=== PATIENT | female | born 1945 | race Caucasian/White ===

== ENCOUNTER → 2016-08-06 | Outpatient (CLI) | payer MEDICARE ==
--- NOTE | 2016-08-07 07:48 | MM ---
Reason for exam: screening (asymptomatic). Last mammogram was performed 1 year and 1 month ago. History: Patient is postmenopausal. Physical Findings: A clinical breast exam by your physician is recommended on an annual basis and results should be correlated with mammographic findings. MG Screening Mammo w CAD Bilateral CC and MLO view(s) were taken. Prior study comparison: July 10, 2015, bilateral MG screening mammo w CAD. May 03, 2012, bilateral digital screening mammo w/CAD. The breast tissue is almost entirely fat. There is chronic nodularity in the right breast. No significant changes when compared with prior studies. ASSESSMENT: Benign, BI-RAD 2 RECOMMENDATION: Routine screening mammogram of both breasts in 1 year.
== END | disposition home or self-care (01) ==
LOC: RADMAMWWP 08:42
PROVIDERS: ATTEND Internal Medicine
DX: Z12.31 Encounter for screening mammogram for malignant neoplasm of breast (principal)

== ENCOUNTER → 2017-12-09 | Outpatient (CLI) | payer MEDICARE ==
--- NOTE | 2017-12-09 13:55 | XR ---
EXAMINATION TYPE: XR chest 2V DATE OF EXAM: 12/09/2017 COMPARISON: 04/17/2015 HISTORY: Fatigue and congestive heart failure. Shortness of breath and 40 pound weight loss. TECHNIQUE: Frontal and lateral views of the chest are obtained. FINDINGS: There is stable blunting of the left costophrenic angle that may relate to a trace left pl eural effusion or chronic pleural parenchymal changes as is seen on the prior 2014. There is also sta ble left hemidiaphragm elevation on the lateral image. Surgical clips are noted within the upper abdo men. Right-sided cardiac device is seen with post CABG changes of the chest. Healed fracture deformit y of the left proximal humerus is present in combination with osseous demineralization. No focal consolidation, pleural effusion or pneumothorax is seen. No pulmonary vascular congestion or pulmonary mass is identified. IMPRESSION: Chronic changes with no acute cardiopulmonary process.
== END | disposition home or self-care (01) ==
LOC: RADXRMAIN 13:10
PROVIDERS: ATTEND Internal Medicine
DX: R06.02 Shortness of breath (principal)
CPT/HCPCS: 71046

== ENCOUNTER → 2018-03-10 | Outpatient (CLI) | payer MEDICARE ==
--- NOTE | 2018-03-10 14:52 | MM ---
Reason for exam: screening (asymptomatic). Last mammogram was performed 1 year and 7 months ago. History: Patient is postmenopausal. Physical Findings: A clinical breast exam by your physician is recommended on an annual basis and results should be correlated with mammographic findings. MG Screening Mammo w CAD Bilateral CC and MLO view(s) were taken. Prior study comparison: August 06, 2016, bilateral MG screening mammo w CAD. July 10, 2015, bilateral MG screening mammo w CAD. There are scattered fibroglandular densities. There is no discrete abnormality. ASSESSMENT: Negative, BI-RAD 1 RECOMMENDATION: Routine screening mammogram of both breasts in 1 year.
== END ==
LOC: RADMAMWWP 10:46
PROVIDERS: ATTEND Internal Medicine
DX: Z12.31 Encounter for screening mammogram for malignant neoplasm of breast (principal)
CPT/HCPCS: 77067

== ENCOUNTER 2018-07-25 19:17 | Inpatient (IN) | payer MEDICARE ==
[2018-07-25] MEDS ORDERED: SODIUM CHLORIDE 0.9% 500 ML 500 ML IV STA (20:01)
[2018-07-25] MEDS ORDERED: ONDANSETRON ODT 8 MG TAB.RAPDIS PO STA (20:01)
[2018-07-25] MEDS ORDERED: MORPHINE SULFATE 4 MG/ML SYRINGE IV STA (20:01)
[2018-07-25] MEDS ORDERED: ONDANSETRON 4 MG/2 ML VIAL IVP STA (20:11)
[2018-07-25 20:28] LABS: Basophils % (A) 0 %; Eosinophils # (A) 0.1 k/uL (0-0.7); Eosinophils % (A) 1 %; HCT 41.7 % (34.0-46.0); Lymphocytes # (A) 0.7 k/uL (1.0-4.8); Lymphocytes % (A) 5 %; MCH 29.9 pg (25.0-35.0); MCHC 33.7 g/dL (31.0-37.0); MCV 88.9 fL (80.0-100.0); Mean Platelet Volume 7.8; Monocytes # (A) 0.4 k/uL (0-1.0); Monocytes % (A) 3 %; Neutrophils # (A) 14.7 k/uL (1.3-7.7); Neutrophils % (A) 91 %; Platelet Count 248 k/uL (150-450); RBC 4.69 m/uL (3.80-5.40); RDW 14.1 % (11.5-15.5); WBC 16.1 k/uL (3.8-10.6)
[2018-07-25 20:34] LABS: Calcium 11.8 mg/dL (8.4-10.2); Potassium 3.5 mmol/L (3.5-5.1); Total Bilirubin 0.8 mg/dL (0.2-1.3); Total Protein 7.5 g/dL (6.3-8.2)
--- NOTE | 2018-07-25 20:42 | ED ---
Abdominal Pain HPI - General Source: patient Mode of arrival: ambulatory Limitations: no limitations <Noris Suarez - Last Filed: 07/25/18 21:54> <Tameka Renteria - Last Filed: 07/26/18 03:20> - General Chief Complaint: Abdominal Pain Stated Complaint: ABD PAIN Time Seen by Provider: 07/25/18 19:26 - History of Present Illness Initial Comments: 73-year-old female patient presents to the emergency department today for evaluation of right lower quadrant abdominal pain. Patient states that she developed this pain around 0900 this morning. Patient states it has been persistent but worsening throughout the day. States that she has also been nauseated and has had dry heaves. States that she has not had a bowel movement in the last 3 days. She denies any fevers or chills with this. Denies any hematuria, dysuria, urinary frequency, urinary urgency. Patient states that she has had repair of aortic dissection and multiple aneurysms on her ascending and descending aorta other abdominal surgeries. Patient denies any recent rash, shortness breath, chest pain, back pain, numbness, tingling, dizziness, weakness, headache, visual changes, or any other complaints. (Noris Suarez ) - Related Data Home Medications Medication Instructions Recorded Confirmed HYDROcodone/APAP 7.5-325MG [[place] 1 tab PO Q8H PRN 10/12/14 07/25/18 7.5-325] Pravastatin Sodium [Pravachol] 20 mg PO HS 04/17/15 07/25/18 Amiodarone [Cordarone] 100 mg PO DAILY 07/25/18 07/25/18 Aspirin EC [Ecotrin Low Dose] 81 mg PO DAILY 07/25/18 07/25/18 Carvedilol [Coreg] 25 mg PO BID 07/25/18 07/25/18 Furosemide [Lasix] 40 mg PO DAILY@1400 07/25/18 07/25/18 Furosemide [Lasix] 80 mg PO QAM 07/25/18 07/25/18 Warfarin Sodium [Coumadin] 2 mg PO MOTUWETHFRSA 07/25/18 07/25/18 Warfarin Sodium [Coumadin] 4 mg PO MASTERS 07/25/18 07/25/18 amLODIPine [Norvasc] 5 mg PO DAILY 07/25/18 07/25/18 Allergies Allergy/AdvReac Type Severity Reaction Status Date / Time amoxicillin AdvReac Nausea & Verified 07/25/18 19:44 Vomiting & Diarrhea Penicillins AdvReac Nausea & Verified 07/25/18 19:44 Vomiting & Diarrhea VITAMIN K Allergy Anaphylaxis Uncoded 04/17/15 16:19 Review of Systems ROS Other: All systems not noted in ROS Statement are negative. <Noris Suarez M - Last Filed: 07/25/18 21:54> ROS Other: All systems not noted in ROS Statement are negative. <Tameka Renteria P - Last Filed: 07/26/18 03:20> ROS Statement: Those systems with pertinent positive or pertinent negative responses have been documented in the HPI. Past Medical History Past Medical History: Heart Failure, CVA/TIA, Hyperlipidemia, Hypertension, Memory Impairment Additional Past Medical History / Comment(s): essential tremor, PAST HX AFIB BUT WAS CARDIOVERTED, KIDNEY STONE,ARTHRITIS,abdominal aortic dissection and repair WITH CVA POST OP WHICH HAS AFFECTED MEMORY SLIGHTLY and left patient with residual slight left sided weakness, chronic anemia, thoracic and abdominal aortic aneurysm, hypercalcemia and hyperparathyroidism WHICH SHE CURRENTLY TEST NORMAL FOR. History of Any Multi-Drug Resistant Organisms: None Reported Past Surgical History: Back Surgery, Heart Catheterization, Pacemaker Additional Past Surgical History / Comment(s): 1998 aortic disection repair, three aneurysm ascending and descending aorta, aortic valve replacement( MECHANICAL VALVE), CYST AT END OF SPINE REMOVED. CARDIAC CATHETERIZATION WHICH WAS NORMAL. biventricular pacer placed in 08/2014 - pacer is on right side of chest - physician unable to get into left Past Anesthesia/Blood Transfusion Reactions: No Reported Reaction Type of Cardiac Device: Biventricular Pacemaker Device Placement Date:: 08/2014 Past Psychological History: No Psychological Hx Reported Smoking Status: Never smoker Past Alcohol Use History: None Reported Past Drug Use History: None Reported - Past Family History Father History Unknown: Yes Family Medical History: AFIB, Congestive Heart Failure (CHF) Additional Family Medical History / Comment(s): FATHER AT AGE 73 OF CHF. Mother History Unknown: Yes Additional Family Medical History / Comment(s): MOTHER AT AGE 78 OF SEPTIC SHOCK UNKNOWN SOURCE. <Noris Suarez - Last Filed: 07/25/18 21:54> General Exam Limitations: no limitations General appearance: alert, in no apparent distress, other (Physical well- developed, well-nourished elderly female patient in no acute distress. Vital signs upon presentation are temperature 98.0F, pulse 68, respirations 16, blood pressure 101/54, pulse ox 98% on room air.) Eye exam: Present: normal appearance, PERRL, EOMI. Absent: scleral icterus, conjunctival injection, periorbital swelling ENT exam: Present: normal exam, normal oropharynx, mucous membranes moist Respiratory exam: Present: normal lung sounds bilaterally. Absent: respiratory distress, wheezes, rales, rhonchi, stridor Cardiovascular Exam: Present: regular rate, normal rhythm, normal heart sounds. Absent: systolic murmur, diastolic murmur, rubs, gallop, clicks GI/Abdominal exam: Present: soft, tenderness (Right lower quadrant tenderness), normal bowel sounds. Absent: distended, guarding, rebound, rigid Neurological exam: Present: alert, oriented X3, CN II-XII intact Psychiatric exam: Present: normal affect, normal mood Skin exam: Present: warm, dry, intact, normal color. Absent: rash <Noris Suarez - Last Filed: 07/25/18 21:54> Vital Signs 07/25/18 07/25/18 07/25/18 19:23 20:30 21:00 Temperature 98 F Pulse Rate 68 Respiratory 16 Rate Blood Pressure 101/54 133/63 118/62 O2 Sat by Pulse 98 Oximetry 07/25/18 07/25/18 21:10 22:48 Temperature Pulse Rate 67 Respiratory 16 Rate Blood Pressure 132/60 101/57 O2 Sat by Pulse 99 Oximetry Medical Decision Making - Lab Data Result diagrams: 07/25/18 20:09 07/25/18 20:09 - Radiology Data Radiology results: report reviewed, image reviewed <Noris Suarez - Last Filed: 07/25/18 21:54> - Lab Data Result diagrams: 07/25/18 20:09 07/25/18 20:09 <Tameka Renteria - Last Filed: 07/26/18 03:20> - Medical Decision Making 73-year-old female patient presents to the emergency department today for evaluation of right lower quadrant abdominal pain. Patient has been nauseated and has been dry heaving throughout the day. She is afebrile. Labs reviewed and did reveal elevated white blood cell count at 16. CT abdomen and pelvis was obtained and did show evidence of diverticulitis the sigmoid colon. Patient be started on antibiotics and admitted to the hospital for further evaluation. She was informed of and agrees this plan (Noris Suarez) I personally saw and examined the patient. I reviewed and agree with the mid- level provider findings including all diagnostic interpretations and treatment plans Patient has a reported history to penicillin, when I discussed this with the patient she reports that penicillin causes nausea and vomiting and amoxicillin causes nausea vomiting and diarrhea. At this time I feel patient is safe to be treated with Rocephin and Flagyl for inflammatory colitis or diverticulitis as determined on the computed tomography scan. Patient agreeable to plan for admission reports she's having worsening abdominal cramping. (Tameka Renteria) - Lab Data Lab Results 07/25/18 07/25/18 07/25/18 Range/Units 20:09 20:09 20:09 WBC 16.1 H (3.8-10.6) k/uL RBC 4.69 (3.80-5.40) m/uL Hgb 14.0 (11.4-16.0) gm/dL Hct 41.7 (34.0-46.0) % MCV 88.9 (80.0-100.0) fL MCH 29.9 (25.0-35.0) pg MCHC 33.7 (31.0-37.0) g/dL RDW 14.1 (11.5-15.5) % Plt Count 248 (150-450) k/uL Neutrophils % 91 % Lymphocytes % 5 % Monocytes % 3 % Eosinophils % 1 % Basophils % 0 % Neutrophils # 14.7 H (1.3-7.7) k/uL Lymphocytes # 0.7 L (1.0-4.8) k/uL Monocytes # 0.4 (0-1.0) k/uL Eosinophils # 0.1 (0-0.7) k/uL Basophils # 0.0 (0-0.2) k/uL PT (9.0-12.0) sec INR (<1.2) APTT (22.0-30.0) sec Sodium 141 (137-145) mmol/L Potassium 3.5 (3.5-5.1) mmol/L Chloride 104 (98-107) mmol/L Carbon Dioxide 29 (22-30) mmol/L Anion Gap 8 mmol/L BUN 27 H (7-17) mg/dL Creatinine 1.07 H (0.52-1.04) mg/dL Est GFR (CKD-EPI)AfAm 60 (>60 ml/min/1.73 sqM) Est GFR (CKD-EPI)NonAf 52 (>60 ml/min/1.73 sqM) Glucose 129 H (74-99) mg/dL Plasma Lactic Acid Jimy 1.9 (0.7-2.0) mmol/L Calcium 11.8 H (8.4-10.2) mg/dL Total Bilirubin 0.8 (0.2-1.3) mg/dL AST 20 (14-36) U/L ALT 26 (9-52) U/L Alkaline Phosphatase 98 (38-126) U/L Total Protein 7.5 (6.3-8.2) g/dL Albumin 4.0 (3.5-5.0) g/dL Amylase 56 (30-110) U/L Lipase 165 (23-300) U/L Urine Color Urine Appearance (Clear) Urine pH (5.0-8.0) Ur Specific [place] (1.001-1.035) Urine Protein (Negative) Urine Glucose (UA) (Negative) Urine Ketones (Negative) Urine Blood (Negative) Urine Nitrite (Negative) Urine Bilirubin (Negative) Urine Urobilinogen (<2.0) mg/dL Ur Leukocyte Esterase (Negative) Urine RBC (0-5) /hpf Urine WBC (0-5) /hpf Ur Squamous Epith Cells (0-4) /hpf Hyaline Casts (0-2) /lpf 07/25/18 07/25/18 Range/Units 20:09 21:10 WBC (3.8-10.6) k/uL RBC (3.80-5.40) m/uL Hgb (11.4-16.0) gm/dL Hct (34.0-46.0) % MCV (80.0-100.0) fL MCH (25.0-35.0) pg MCHC (31.0-37.0) g/dL RDW (11.5-15.5) % Plt Count (150-450) k/uL Neutrophils % % Lymphocytes % % Monocytes % % Eosinophils % % Basophils % % Neutrophils # (1.3-7.7) k/uL Lymphocytes # (1.0-4.8) k/uL Monocytes # (0-1.0) k/uL Eosinophils # (0-0.7) k/uL Basophils # (0-0.2) k/uL PT 13.8 H (9.0-12.0) sec INR 1.4 H (<1.2) APTT 27.6 (22.0-30.0) sec Sodium (137-145) mmol/L Potassium (3.5-5.1) mmol/L Chloride (98-107) mmol/L Carbon Dioxide (22-30) mmol/L Anion Gap mmol/L BUN (7-17) mg/dL Creatinine (0.52-1.04) mg/dL Est GFR (CKD-EPI)AfAm (>60 ml/min/1.73 sqM) Est GFR (CKD-EPI)NonAf (>60 ml/min/1.73 sqM) Glucose (74-99) mg/dL Plasma Lactic Acid Jimy (0.7-2.0) mmol/L Calcium (8.4-10.2) mg/dL Total Bilirubin (0.2-1.3) mg/dL AST (14-36) U/L ALT (9-52) U/L Alkaline Phosphatase (38-126) U/L Total Protein (6.3-8.2) g/dL Albumin (3.5-5.0) g/dL Amylase (30-110) U/L Lipase (23-300) U/L Urine Color Yellow Urine Appearance Clear (Clear) Urine pH 5.5 (5.0-8.0) Ur Specific [place] 1.020 (1.001-1.035) Urine Protein Trace H (Negative) Urine Glucose (UA) Negative (Negative) Urine Ketones Negative (Negative) Urine Blood Negative (Negative) Urine Nitrite Negative (Negative) Urine Bilirubin Negative (Negative) Urine Urobilinogen <2.0 (<2.0) mg/dL Ur Leukocyte Esterase Moderate H (Negative) Urine RBC 1 (0-5) /hpf Urine WBC 6 H (0-5) /hpf Ur Squamous Epith Cells <1 (0-4) /hpf Hyaline Casts 1 (0-2) /lpf - Radiology Data CT abdomen and pelvis is obtained. Report was reviewed in its entirety. Impression by Dr. Meza shows inflammatory changes in the sigmoid colon with wall thickening and numerous diverticula. This could be colitis or diverticulitis. There is no free fluid in the pelvis. There is a chronic low abdominal aortic dissection extending into the right iliac artery that appears diminished compared to last exam. There is clearing of left pleural effusion compared to old exam. (Noris Suarez) Disposition Decision to Admit Reason: Admit from EC Decision Date: 07/25/18 Decision Time: 21:55 <Noris Suarez - Last Filed: 07/25/18 21:54> <Tameka Renteria - Last Filed: 07/26/18 03:20> Clinical Impression: Diverticulitis Disposition: ADMITTED IP TO THIS [facility] Condition: Serious
[2018-07-25 21:23] LABS: Appearance,Urine Clear (Clear); Bilirubin,Urine Negative (Negative); Blood,Urine Negative (Negative); Color,Urine Yellow; Glucose,Urine (UA) Negative (Negative); Hyaline Casts,Urine 1 /lpf (0-2); Ketones,Urine Negative (Negative); Leukocyte Esterase,Urine Moderate (Negative); Nitrite,Urine Negative (Negative); PH, Urine 5.5 (5.0-8.0); Protein,Urine Trace (Negative); RBC,Urine 1 /hpf (0-5); Squamous Epithelial Cell,Urine <1 /hpf (0-4); Urobilinogen,Urine <2.0 mg/dL (<2.0); WBC,Urine 6 /hpf (0-5)
--- NOTE | 2018-07-25 21:30 | CT ---
EXAMINATION TYPE: CT abdomen pelvis w con DATE OF EXAM: 07/25/2018 COMPARISON: 08/26/2012 HISTORY: Right lower quadrant pain today. CT DLP: 982.9 mGycm Automated exposure control for dose reduction was used. TECHNIQUE: Helical acquisition of images was performed from the lung bases through the pelvis. CONTRAST: Performed without Oral Contrast and with IV Contrast, patient injected with 80 mL of Isovue 300. FINDINGS: Heart is enlarged. There is no pleural effusion. Spleen appears normal. Liver shows no focal defect. Bile ducts are not dilated. Gallbladder appears normal. There is no pancreatic mass. There is no adrenal mass. There is limited dissection of the lower abdominal aorta that extends into the right iliac artery. There is aneurysm of the liver abdominal aorta that measures up to 3.7 cm in diameter. There is no retroperitoneal adenopathy. The kidneys show satisfactory contrast opacificatio n. There is no hydronephrosis. There are multiple bilateral renal cortical cysts that measure up to 2 cm. There are multiple calculi in the lower pole left kidney measure up to 6 mm. There is some free fluid in the pelvis. Bladder distends smoothly. There is no inguinal hernia. Uteru s is anteverted. There is no mesenteric edema. There is no sign of appendicitis. There are multiple s igmoid diverticula. There is some wall thickening of the mid sigmoid colon. There is no sign of free air. There are spondylotic changes in the lumbar spine. IMPRESSION: THERE ARE INFLAMMATORY CHANGES OF THE SIGMOID COLON WITH WALL THICKENING AND NUMEROUS DIVERTICULA. TH IS COULD BE COLITIS OR DIVERTICULITIS. THERE IS NEW FREE FLUID IN THE PELVIS. THERE IS A CHRONIC LOW ABDOMINAL AORTIC DISSECTION EXTENDING INTO THE RIGHT ILIAC ARTERY THAT APPEARS DIMINISHED COMPARED TO LAST EXAM. THERE IS CLEARING OF LEFT PLEURAL EFFUSION COMPARED TO OLD EXAM.
[2018-07-25] MEDS ORDERED: NALOXONE 0.4 MG/ML 1 ML VIAL IV PRN (21:50)
[2018-07-25] MEDS ORDERED: HYDROcodone/APAP 7.5-325MG 1 EACH TAB PO PRN (21:52)
[2018-07-25] MEDS ORDERED: metroNIDAZOLE-NS PMX 500 MG in SALINE 1 100ML.BAG IVPB STA (22:48)
[2018-07-25] MEDS: SODIUM CHLORIDE 0.9% 1,000 ML IV SCH (23:27)
[2018-07-25 23:57] LABS: INR 1.4 (<1.2); Partial Thromboplastin Time 27.6 sec (22.0-30.0); Prothrombin Time 13.8 sec (9.0-12.0)
[2018-07-26] MEDS: MORPHINE SULFATE 4 MG/ML SYRINGE IV PRN ×6 (00:35→22:02)
[2018-07-26] MEDS: metroNIDAZOLE-NS PMX 500 MG in SALINE 1 100ML.BAG IVPB SCH ×3 (05:38→17:20)
[2018-07-26] MEDS: FUROSEMIDE 80 MG TAB PO SCH (08:20)
[2018-07-26] MEDS: amLODIPine 5 MG TAB PO SCH (08:20)
[2018-07-26] MEDS: AMIODARONE 200 MG TAB PO SCH (08:20)
[2018-07-26] MEDS: CARVEDILOL 12.5 MG TAB PO SCH ×2 (08:20→21:59)
[2018-07-26] MEDS: ASPIRIN 81 MG PO SCH (08:20)
[2018-07-26 09:17] LABS: Basophils # (A) 0.1 k/uL (0-0.2); Basophils % (A) 0 %; Eosinophils # (A) 0.1 k/uL (0-0.7); Eosinophils % (A) 0 %; HCT 39.7 % (34.0-46.0); HGB 12.9 gm/dL (11.4-16.0); Lymphocytes # (A) 0.9 k/uL (1.0-4.8); Lymphocytes % (A) 6 %; MCH 29.5 pg (25.0-35.0); MCHC 32.4 g/dL (31.0-37.0); Mean Platelet Volume 7.3; Monocytes # (A) 0.7 k/uL (0-1.0); Monocytes % (A) 5 %; Neutrophils % (A) 88 %; Platelet Count 270 k/uL (150-450); RBC 4.36 m/uL (3.80-5.40); RDW 14.2 % (11.5-15.5); WBC 15.8 k/uL (3.8-10.6)
[2018-07-26 09:39] LABS: Albumin 3.6 g/dL (3.5-5.0); Potassium 3.8 mmol/L (3.5-5.1); Total Protein 6.7 g/dL (6.3-8.2)
[2018-07-26 09:40] LABS: Calcium 11.4 mg/dL (8.4-10.2); Total Bilirubin 0.8 mg/dL (0.2-1.3)
[2018-07-26 09:58] LABS: INR 1.4 (<1.2); Prothrombin Time 14.5 sec (9.0-12.0)
--- NOTE | 2018-07-26 10:59 | P.HPIM ---
History of Present Illness H&P Date: 07/26/18 This is a 73-year-old female patient who presented to the emergency room with complaints of abdominal pain. Patient states pain started around 9 AM yesterday morning due to her right lower quadrant. Patient reports that it increased throughout the day and patient started to experience nausea and dry heaves. Patient reports last bowel movement was 3 days prior. Patient has past medical history of heart failure, CVA, hyperlipidemia, hypertension, memory impairment, essential tremor, atrial fibrillation with cardioversion, abdominal aortic dissection and repair with CVA postop, cardiac cath, aortic valve replacement with mechanical valve , patient maintained on Coumadin and biventricular pacer placed in August 2014. CT of abdomen and pelvis completed showing inflammatory changes in the sigmoid colon with wall thickening and numerous diverticula. This could be colitis or diverticulitis. There is new free fluid in the pelvis. There is chronic low abdominal aortic dissection extending into the right iliac artery that appears diminished compared to last exam. There is clearing of left pleural effusion compared to old exam. Patient started on Rocephin and Flagyl. Dr. Soto has been consulted for surgical services. This time patient is complaining of some lower abdominal discomfort. Patient denies vomiting at this time. Patient denies any bowel movement or diarrhea. Patient denies chest pain or shortness breath. Patient denies any urinary burning or frequency. Urinary analysis showing positive for leukocyte esterase. Urine culture has been ordered. Review of Systems Please refert to HPI otherwise unremarkable Past Medical History Past Medical History: Heart Failure, CVA/TIA, Hyperlipidemia, Hypertension, Memory Impairment Additional Past Medical History / Comment(s): essential tremor, PAST HX AFIB BUT WAS CARDIOVERTED, KIDNEY STONE,ARTHRITIS,abdominal aortic dissection and repair WITH CVA POST OP WHICH HAS AFFECTED MEMORY SLIGHTLY and left patient with residual slight left sided weakness, chronic anemia, thoracic and abdominal aortic aneurysm, hypercalcemia and hyperparathyroidism WHICH SHE CURRENTLY TEST NORMAL FOR. History of Any Multi-Drug Resistant Organisms: None Reported Past Surgical History: Back Surgery, Heart Catheterization, Pacemaker Additional Past Surgical History / Comment(s): 1998 aortic disection repair, three aneurysm ascending and descending aorta, aortic valve replacement( MECHANICAL VALVE), CYST AT END OF SPINE REMOVED. CARDIAC CATHETERIZATION WHICH WAS NORMAL. biventricular pacer placed in 08/2014 - pacer is on right side of chest - physician unable to get into left Past Anesthesia/Blood Transfusion Reactions: No Reported Reaction Type of Cardiac Device: Biventricular Pacemaker Device Placement Date:: 08/2014 Past Psychological History: No Psychological Hx Reported Additional Psychological History / Comment(s): PT LIVES ALONE AT [facility]). SHE DOES NOT HAVE A CAR BUT DOES HAVE A VALID LICENSE. SHE GETS TO [facility] BY PUBLIC TRANSPORTATION OR AN UNCLE SOMETIMES HELS OUT. PT IS SELF SUFFICIENT AT HOME. Smoking Status: Never smoker Past Alcohol Use History: None Reported Past Drug Use History: None Reported - Past Family History Father History Unknown: Yes Family Medical History: AFIB, Congestive Heart Failure (CHF) Additional Family Medical History / Comment(s): FATHER AT AGE 73 OF CHF. Mother History Unknown: Yes Additional Family Medical History / Comment(s): MOTHER AT AGE 78 OF SEPTIC SHOCK UNKNOWN SOURCE. Medications and Allergies Home Medications Medication Instructions Recorded Confirmed Type HYDROcodone/APAP 7.5-325MG [[place] 1 tab PO Q8H PRN 10/12/14 07/25/18 History 7.5-325] Pravastatin Sodium [Pravachol] 20 mg PO HS 04/17/15 07/25/18 History Amiodarone [Cordarone] 100 mg PO DAILY 07/25/18 07/25/18 History Aspirin EC [Ecotrin Low Dose] 81 mg PO DAILY 07/25/18 07/25/18 History Carvedilol [Coreg] 25 mg PO BID 07/25/18 07/25/18 History Furosemide [Lasix] 40 mg PO DAILY@1400 07/25/18 07/25/18 History Furosemide [Lasix] 80 mg PO QAM 07/25/18 07/25/18 History Warfarin Sodium [Coumadin] 2 mg PO MOTUWETHFRSA 07/25/18 07/25/18 History Warfarin Sodium [Coumadin] 4 mg PO MASTERS 07/25/18 07/25/18 History amLODIPine [Norvasc] 5 mg PO DAILY 07/25/18 07/25/18 History Allergies Allergy/AdvReac Type Severity Reaction Status Date / Time amoxicillin AdvReac Nausea & Verified 07/25/18 19:44 Vomiting & Diarrhea Penicillins AdvReac Nausea & Verified 07/25/18 19:44 Vomiting & Diarrhea VITAMIN K Allergy Anaphylaxis Uncoded 04/17/15 16:19 Physical Exam Vitals: Vital Signs Temp Pulse Pulse Resp BP BP Pulse Ox 07/26/18 07:00 99.1 F 76 18 115/53 91 L 07/25/18 22:48 67 16 101/57 99 07/25/18 21:10 132/60 07/25/18 21:00 118/62 07/25/18 20:30 133/63 07/25/18 19:23 98 F 68 16 101/54 98 Intake and Output 07/25/18 07/26/18 07/26/18 22:59 06:59 14:59 Other: Voiding Method Bedside Commode # Bowel Movements 0 Weight 99.79 kg Head normocephalic Neck supple Lungs clear to auscultation bilaterally no wheezing or crackles Heart regular rate and rhythm S1-S2, no rub or gallop Abdomen is soft nontender nondistended positive bowel sounds no hepatosplenomegaly Extremities +2 lower extremity edema Neuro alert and orientated to 3. Essential tremor noted Results CBC & Chem 7: 07/26/18 08:48 07/26/18 08:48 Labs: Abnormal Lab Results - Last 24 Hours (Table) 07/25/18 07/25/18 07/25/18 Range/Units 20:09 20:09 20:09 WBC 16.1 H (3.8-10.6) k/uL Neutrophils # 14.7 H (1.3-7.7) k/uL Lymphocytes # 0.7 L (1.0-4.8) k/uL PT 13.8 H (9.0-12.0) sec INR 1.4 H (<1.2) BUN 27 H (7-17) mg/dL Creatinine 1.07 H (0.52-1.04) mg/dL Glucose 129 H (74-99) mg/dL Calcium 11.8 H (8.4-10.2) mg/dL Urine Protein (Negative) Ur Leukocyte Esterase (Negative) Urine WBC (0-5) /hpf 07/25/18 07/26/18 07/26/18 Range/Units 21:10 08:48 08:48 WBC 15.8 H (3.8-10.6) k/uL Neutrophils # 14.0 H (1.3-7.7) k/uL Lymphocytes # 0.9 L (1.0-4.8) k/uL PT (9.0-12.0) sec INR (<1.2) BUN 23 H (7-17) mg/dL Creatinine 1.13 H (0.52-1.04) mg/dL Glucose 142 H (74-99) mg/dL Calcium 11.4 H (8.4-10.2) mg/dL Urine Protein Trace H (Negative) Ur Leukocyte Esterase Moderate H (Negative) Urine WBC 6 H (0-5) /hpf 07/26/18 Range/Units 09:44 WBC (3.8-10.6) k/uL Neutrophils # (1.3-7.7) k/uL Lymphocytes # (1.0-4.8) k/uL PT 14.5 H (9.0-12.0) sec INR 1.4 H (<1.2) BUN (7-17) mg/dL Creatinine (0.52-1.04) mg/dL Glucose (74-99) mg/dL Calcium (8.4-10.2) mg/dL Urine Protein (Negative) Ur Leukocyte Esterase (Negative) Urine WBC (0-5) /hpf Thrombosis Risk Factor Assmnt - Choose All That Apply Each Factor Represents 1 point: Obesity (BMI >25), Swollen legs (current) Other Risk Factors: Yes Each Risk Factor Represents 2 Points: Age 61-74 years Other congenital or acquired thrombophilia - If yes, enter type in comment: No Thrombosis Risk Factor Assessment Total Risk Factor Score: 4 Thrombosis Risk Factor Assessment Level: Moderate Risk Assessment and Plan Assessment: 1. Diverticulitis with leukocytosis. WBC 15.8. Lactic acid 1.9. CT of abdomen and pelvis completed showing inflammatory changes in the sigmoid colon with wall thickening and numerous diverticula. This could be colitis or diverticulitis. There is new free fluid in the pelvis. This chronic low abdominal aortic dissection extending into the right iliac artery appears diminished compared to last exam. There is clearing of the left pleural effusion compared to old exam. Dr. thrasher has been consulted for surgical services. Patient started on Rocephin and Flagyl for IV antibiotics. Cultures have been ordered 2. Urinary tract infection. Urine culture ordered. Patient currently on Flagyl and Rocephin for IV antibiotics 3. History of aortic can mechanical valve replacement. Patient is maintained on Coumadin. INR 1.4. 4. History of essential tremor 5. Acute kidney injury. Creatinine 1.13. This does appear slightly higher than baseline for patient. We'll continue to monitor closely 6. History of cardiomyopathy status post biventricular pacemaker placement 7. History of aortic dissection repair in 1998 8. History of CVA and TIA 9. History of atrial fibrillation with cardioversion 10. Heart failure. Maintain on Lasix Time with Patient: Greater than 30 (Greater than 60% of the total time spent in counseling and coordination of care. I performed an examination of the patient and discussed their management with the Nurse Practitioner. I have reviewed the Nurse Practitioner's notes and agree with the documented findings and plan of care)
[2018-07-26] MEDS: FUROSEMIDE 40 MG TAB PO SCH (14:08)
--- NOTE | 2018-07-26 15:27 | P.GSCN ---
History of Present Illness Consult date: 07/26/18 Reason for Consult: Abdominal pain History of present illness: Patient presents to the hospital complaining of abdominal pain. Pain started yesterday around 9:00 in the morning. Last bowel movement 3 days ago. Last colonoscopy she states 2-3 days ago. The patient describes increased abdominal bloating. Mild nausea but no vomiting. Tolerating liquids. CAT scan was performed and showed some constipation with mild colonic wall thickening involving the sigmoid colon. Multiple diverticulum seen. Possible diverticulitis versus colitis. Antibiotics was started. She is passing a small amount of flatus. Possible urinary infection as well. Review of Systems The patient denies any acute changes in vision or hearing, no dysphagia or odynophagia, no chest pain or shortness of breath, no dysuria or hematuria, no headache, no runny nose, no rectal bleeding or melena, no unexplained weight loss Past Medical History Past Medical History: Heart Failure, CVA/TIA, Hyperlipidemia, Hypertension, Memory Impairment Additional Past Medical History / Comment(s): essential tremor, PAST HX AFIB BUT WAS CARDIOVERTED, KIDNEY STONE,ARTHRITIS,abdominal aortic dissection and repair WITH CVA POST OP WHICH HAS AFFECTED MEMORY SLIGHTLY and left patient with residual slight left sided weakness, chronic anemia, thoracic and abdominal aortic aneurysm, hypercalcemia and hyperparathyroidism WHICH SHE CURRENTLY TEST NORMAL FOR. History of Any Multi-Drug Resistant Organisms: None Reported Past Surgical History: Back Surgery, Heart Catheterization, Pacemaker Additional Past Surgical History / Comment(s): 1998 aortic disection repair, three aneurysm ascending and descending aorta, aortic valve replacement( MECHANICAL VALVE), CYST AT END OF SPINE REMOVED. CARDIAC CATHETERIZATION WHICH WAS NORMAL. biventricular pacer placed in 08/2014 - pacer is on right side of chest - physician unable to get into left Past Anesthesia/Blood Transfusion Reactions: No Reported Reaction Type of Cardiac Device: Biventricular Pacemaker Device Placement Date:: 08/2014 Past Psychological History: No Psychological Hx Reported Additional Psychological History / Comment(s): PT LIVES ALONE AT [facility]). SHE DOES NOT HAVE A CAR BUT DOES HAVE A VALID LICENSE. [facility] OR AN UNCLE SOMETIMES HELS OUT. PT IS SELF SUFFICIENT AT HOME. Smoking Status: Never smoker Past Alcohol Use History: None Reported Past Drug Use History: None Reported - Past Family History Father History Unknown: Yes Family Medical History: AFIB, Congestive Heart Failure (CHF) Additional Family Medical History / Comment(s): FATHER AT AGE 73 OF CHF. Mother History Unknown: Yes Additional Family Medical History / Comment(s): MOTHER AT AGE 78 OF SEPTIC SHOCK UNKNOWN SOURCE. Medications and Allergies Home Medications Medication Instructions Recorded Confirmed Type HYDROcodone/APAP 7.5-325MG [[place] 1 tab PO Q8H PRN 10/12/14 07/25/18 History 7.5-325] Pravastatin Sodium [Pravachol] 20 mg PO HS 04/17/15 07/25/18 History Amiodarone [Cordarone] 100 mg PO DAILY 07/25/18 07/25/18 History Aspirin EC [Ecotrin Low Dose] 81 mg PO DAILY 07/25/18 07/25/18 History Carvedilol [Coreg] 25 mg PO BID 07/25/18 07/25/18 History Furosemide [Lasix] 40 mg PO DAILY@1400 07/25/18 07/25/18 History Furosemide [Lasix] 80 mg PO QAM 07/25/18 07/25/18 History Warfarin Sodium [Coumadin] 2 mg PO MOTUWETHFRSA 07/25/18 07/25/18 History Warfarin Sodium [Coumadin] 4 mg PO MASTERS 07/25/18 07/25/18 History amLODIPine [Norvasc] 5 mg PO DAILY 07/25/18 07/25/18 History Allergies Allergy/AdvReac Type Severity Reaction Status Date / Time amoxicillin AdvReac Nausea & Verified 07/25/18 19:44 Vomiting & Diarrhea Penicillins AdvReac Nausea & Verified 07/25/18 19:44 Vomiting & Diarrhea VITAMIN K Allergy Anaphylaxis Uncoded 04/17/15 16:19 Surgical - Exam Vital Signs Temp Pulse Resp BP Pulse Ox 98 F 68 16 101/54 98 07/25/18 19:23 07/25/18 19:23 07/25/18 19:23 07/25/18 19:23 07/25/18 19:23 Physical exam: General: Well-developed, well-nourished HEENT: Normocephalic, sclerae nonicteric Abdomen: Distended, mild diffuse tenderness, tympany Extremities: No edema Neuro: Alert and oriented Results - Labs 07/26/18 08:48 07/26/18 08:48 Abnormal Lab Results - Last 24 Hours (Table) 07/25/18 07/25/18 07/25/18 Range/Units 20:09 20:09 20:09 WBC 16.1 H (3.8-10.6) k/uL Neutrophils # 14.7 H (1.3-7.7) k/uL Lymphocytes # 0.7 L (1.0-4.8) k/uL PT 13.8 H (9.0-12.0) sec INR 1.4 H (<1.2) BUN 27 H (7-17) mg/dL Creatinine 1.07 H (0.52-1.04) mg/dL Glucose 129 H (74-99) mg/dL Calcium 11.8 H (8.4-10.2) mg/dL Urine Protein (Negative) Ur Leukocyte Esterase (Negative) Urine WBC (0-5) /hpf 07/25/18 07/26/18 07/26/18 Range/Units 21:10 08:48 08:48 WBC 15.8 H (3.8-10.6) k/uL Neutrophils # 14.0 H (1.3-7.7) k/uL Lymphocytes # 0.9 L (1.0-4.8) k/uL PT (9.0-12.0) sec INR (<1.2) BUN 23 H (7-17) mg/dL Creatinine 1.13 H (0.52-1.04) mg/dL Glucose 142 H (74-99) mg/dL Calcium 11.4 H (8.4-10.2) mg/dL Urine Protein Trace H (Negative) Ur Leukocyte Esterase Moderate H (Negative) Urine WBC 6 H (0-5) /hpf 07/26/18 Range/Units 09:44 WBC (3.8-10.6) k/uL Neutrophils # (1.3-7.7) k/uL Lymphocytes # (1.0-4.8) k/uL PT 14.5 H (9.0-12.0) sec INR 1.4 H (<1.2) BUN (7-17) mg/dL Creatinine (0.52-1.04) mg/dL Glucose (74-99) mg/dL Calcium (8.4-10.2) mg/dL Urine Protein (Negative) Ur Leukocyte Esterase (Negative) Urine WBC (0-5) /hpf Diabetes panel 07/25/18 07/26/18 Range/Units 20:09 08:48 Sodium 141 142 (137-145) mmol/L Potassium 3.5 3.8 (3.5-5.1) mmol/L Chloride 104 107 (98-107) mmol/L Carbon Dioxide 29 28 (22-30) mmol/L BUN 27 H 23 H (7-17) mg/dL Creatinine 1.07 H 1.13 H (0.52-1.04) mg/dL Glucose 129 H 142 H (74-99) mg/dL Calcium 11.8 H 11.4 H (8.4-10.2) mg/dL AST 20 28 (14-36) U/L ALT 26 28 (9-52) U/L Alkaline Phosphatase 98 76 (38-126) U/L Total Protein 7.5 6.7 (6.3-8.2) g/dL Albumin 4.0 3.6 (3.5-5.0) g/dL Calcium panel 07/25/18 07/26/18 Range/Units 20:09 08:48 Calcium 11.8 H 11.4 H (8.4-10.2) mg/dL Albumin 4.0 3.6 (3.5-5.0) g/dL Pituitary panel 07/25/18 07/26/18 Range/Units 20:09 08:48 Sodium 141 142 (137-145) mmol/L Potassium 3.5 3.8 (3.5-5.1) mmol/L Chloride 104 107 (98-107) mmol/L Carbon Dioxide 29 28 (22-30) mmol/L BUN 27 H 23 H (7-17) mg/dL Creatinine 1.07 H 1.13 H (0.52-1.04) mg/dL Glucose 129 H 142 H (74-99) mg/dL Calcium 11.8 H 11.4 H (8.4-10.2) mg/dL Adrenal panel 07/25/18 07/26/18 Range/Units 20:09 08:48 Sodium 141 142 (137-145) mmol/L Potassium 3.5 3.8 (3.5-5.1) mmol/L Chloride 104 107 (98-107) mmol/L Carbon Dioxide 29 28 (22-30) mmol/L BUN 27 H 23 H (7-17) mg/dL Creatinine 1.07 H 1.13 H (0.52-1.04) mg/dL Glucose 129 H 142 H (74-99) mg/dL Calcium 11.8 H 11.4 H (8.4-10.2) mg/dL Total Bilirubin 0.8 0.8 (0.2-1.3) mg/dL AST 20 28 (14-36) U/L ALT 26 28 (9-52) U/L Alkaline Phosphatase 98 76 (38-126) U/L Total Protein 7.5 6.7 (6.3-8.2) g/dL Albumin 4.0 3.6 (3.5-5.0) g/dL Assessment and Plan (1) Diverticulitis Narrative/Plan: Based on the patient's history diverticulitis seems to be the most likely explanation for her pain. Patient states her abdominal distention is increased today from yesterday. We will check abdominal x-rays tomorrow. Increase ambulation. Continue clear liquids only sparingly. Repeat labs tomorrow. We' ll follow with you. Current Visit: Yes Status: Acute Code(s): K57.92 - DVTRCLI OF INTEST, PART UNSP, W/O PERF OR ABSCESS W/O BLEED SNOMED Code(s): 420427303
[2018-07-26] MEDS ORDERED: BISACODYL 10 MG SUPP RECTAL STA (16:19)
--- NOTE | 2018-07-26 16:43 | XR ---
EXAMINATION TYPE: XR abdomen complete w decub DATE OF EXAM: 07/26/2018 COMPARISON: 09/21/2014 HISTORY: Abdominal distention TECHNIQUE: Supine and upright views and left side down decubitus view FINDINGS: There is gaseous distention of multiple loops of large and small bowel down to the rectum. There is n o sign of free air. Lung bases are clear of consolidation. There is no sign of pleural effusion the a bdominal gas and fecal material obscures the kidneys.. There are surgical clips in the upper abdomen. IMPRESSION: Gas distention consistent with large and small bowel ileus that is a change compared to old exam. The re is slight decrease fecal material compared to old exam.
[2018-07-26] MEDS: SODIUM CHLORIDE 0.9% 1,000 ML IV SCH (17:23)
[2018-07-26] MEDS ORDERED: WARFARIN 2 MG TAB PO SCH (18:00)
[2018-07-26] MEDS ORDERED: WARFARIN 5 MG TAB PO ONE (18:00)
[2018-07-26] MEDS: PRAVASTATIN SODIUM 20 MG TAB PO SCH (21:59)
[2018-07-26] MEDS: ENOXAPARIN 100 MG/ML SYRINGE SQ SCH (21:59)
[2018-07-27] MEDS: metroNIDAZOLE-NS PMX 500 MG in SALINE 1 100ML.BAG IVPB SCH ×5 (00:09→23:13)
[2018-07-27] MEDS: MORPHINE SULFATE 4 MG/ML SYRINGE IV PRN ×4 (07:34→21:30)
[2018-07-27] MEDS: PANTOPRAZOLE 40 MG/10 ML VIAL IVP SCH (07:34)
[2018-07-27] MEDS: ENOXAPARIN 100 MG/ML SYRINGE SQ SCH ×2 (07:35→21:14)
[2018-07-27] MEDS: ONDANSETRON 4 MG/2 ML VIAL IVP PRN ×2 (07:39→18:08)
[2018-07-27] MEDS: FUROSEMIDE 80 MG TAB PO SCH (08:23)
[2018-07-27] MEDS: amLODIPine 5 MG TAB PO SCH (08:23)
[2018-07-27] MEDS: ASPIRIN 81 MG PO SCH (08:23)
[2018-07-27] MEDS: AMIODARONE 200 MG TAB PO SCH (08:23)
[2018-07-27] MEDS: CARVEDILOL 12.5 MG TAB PO SCH ×2 (08:23→21:13)
--- NOTE | 2018-07-27 08:29 | P.PN ---
Subjective Progress Note Date: 07/27/18 Principal diagnosis: Abdominal pain Patient had a small amount of flatus. No bowel movement. Still feels bloated. No vomiting. Mild nausea. Pain is about the same as yesterday. Yesterday's x-rays reviewed. Colonic and small bowel ileus noted. Objective - Vital Signs Vital signs: Vital Signs Temp 99.7 F H 07/27/18 07:29 Pulse 63 07/27/18 07:29 Resp 18 07/27/18 07:29 BP 113/55 07/27/18 07:29 Pulse Ox 93 L 07/27/18 07:29 Intake & Output 07/26/18 07/27/18 07/27/18 18:59 06:59 18:59 Intake Total 0 Balance 0 Intake: Oral 0 Other: Voiding Method Bedside Commode # Voids 3 2 # Bowel Movements 1 - Exam Abdomen: Soft, mild distention, mild tympany, lower abdominal tenderness mild - Labs CBC & Chem 7: 07/26/18 08:48 07/26/18 08:48 Labs: Abnormal Lab Results - Last 24 Hours (Table) 07/26/18 07/26/18 07/26/18 Range/Units 08:48 08:48 09:44 WBC 15.8 H (3.8-10.6) k/uL Neutrophils # 14.0 H (1.3-7.7) k/uL Lymphocytes # 0.9 L (1.0-4.8) k/uL PT 14.5 H (9.0-12.0) sec INR 1.4 H (<1.2) BUN 23 H (7-17) mg/dL Creatinine 1.13 H (0.52-1.04) mg/dL Glucose 142 H (74-99) mg/dL Calcium 11.4 H (8.4-10.2) mg/dL Microbiology - Last 24 Hours (Table) 07/25/18 23:30 Blood Culture - Preliminary Blood No Growth after 24 hours 07/26/18 14:00 Urine Culture - Preliminary Urine,Voided Assessment and Plan (1) Diverticulitis Narrative/Plan: Continue daily Dulcolax. Continue antibiotics. Keep nothing by mouth for now. Repeat x-rays tomorrow. Current Visit: Yes Status: Acute Code(s): K57.92 - DVTRCLI OF INTEST, PART UNSP, W/O PERF OR ABSCESS W/O BLEED SNOMED Code(s): 312846236
[2018-07-27] MEDS: BISACODYL 10 MG SUPP RECTAL SCH (08:40)
[2018-07-27 09:13] LABS: Basophils % (A) 0 %; Eosinophils # (A) 0.2 k/uL (0-0.7); Eosinophils % (A) 2 %; HCT 34.8 % (34.0-46.0); HGB 11.1 gm/dL (11.4-16.0); Lymphocytes % (A) 9 %; MCH 29.2 pg (25.0-35.0); MCHC 31.8 g/dL (31.0-37.0); MCV 91.9 fL (80.0-100.0); Mean Platelet Volume 8.1; Monocytes # (A) 0.5 k/uL (0-1.0); Monocytes % (A) 5 %; Neutrophils # (A) 9.1 k/uL (1.3-7.7); Neutrophils % (A) 83 %; Platelet Count 191 k/uL (150-450); RBC 3.79 m/uL (3.80-5.40); RDW 14.2 % (11.5-15.5)
[2018-07-27 09:16] LABS: INR 1.7 (<1.2); Prothrombin Time 16.7 sec (9.0-12.0)
[2018-07-27 09:38] LABS: Albumin 2.9 g/dL (3.5-5.0); Calcium 10.8 mg/dL (8.4-10.2); Potassium 2.9 mmol/L (3.5-5.1); Total Bilirubin 0.6 mg/dL (0.2-1.3); Total Protein 5.7 g/dL (6.3-8.2)
[2018-07-27] MEDS ORDERED: Potassium Replacement Protocol 1 EACH MISC MISCELLANE PRN (10:32)
[2018-07-27] MEDS: POTASSIUM CHLORIDE 10 MEQ in WATER FOR INJECTION 1 100ML.BAG IVPB SCH ×6 (11:01→17:42)
--- NOTE | 2018-07-27 12:04 | P.PN ---
Subjective Progress Note Date: 07/27/18 This is a 73-year-old female patient who presented to the emergency room with complaints of abdominal pain. Patient states pain started around 9 AM yesterday morning due to her right lower quadrant. Patient reports that it increased throughout the day and patient started to experience nausea and dry heaves. Patient reports last bowel movement was 3 days prior. Patient has past medical history of heart failure, CVA, hyperlipidemia, hypertension, memory impairment, essential tremor, atrial fibrillation with cardioversion, abdominal aortic dissection and repair with CVA postop, cardiac cath, aortic valve replacement with mechanical valve , patient maintained on Coumadin and biventricular pacer placed in August 2014. CT of abdomen and pelvis completed showing inflammatory changes in the sigmoid colon with wall thickening and numerous diverticula. This could be colitis or diverticulitis. There is new free fluid in the pelvis. There is chronic low abdominal aortic dissection extending into the right iliac artery that appears diminished compared to last exam. There is clearing of left pleural effusion compared to old exam. Patient started on Rocephin and Flagyl. Dr. Soto has been consulted for surgical services. This time patient is complaining of some lower abdominal discomfort. Patient denies vomiting at this time. Patient denies any bowel movement or diarrhea. Patient denies chest pain or shortness breath. Patient denies any urinary burning or frequency. Urinary analysis showing positive for leukocyte esterase. Urine culture has been ordered. On 07/27/2018 patient is currently resting in bed. Patient still complaining of some abdominal discomfort. Patient was evaluated surgical service is planning to repeat abdominal x-ray tomorrow. Patient remains nothing by mouth. INR remained subtherapeutic at 1.7. Patient remains on Lovenox 1 mg/kg until INR is therapeutic due to history of mechanical aortic valve replacement. Potassium also a 2.9 will replace per protocol. Patient is nothing by mouth we' ll place with IV at this time. Patient denies chest pain or shortness of breath. Patient denies any urinary burning or frequency. Patient is complaining of some nausea with abdominal discomfort Objective - Vital Signs Vital signs: Vital Signs Temp 99.7 F H 07/27/18 07:29 Pulse 63 07/27/18 07:29 Resp 18 07/27/18 07:29 BP 113/55 07/27/18 07:29 Pulse Ox 93 L 07/27/18 07:29 Intake & Output 07/26/18 07/27/18 07/27/18 18:59 06:59 18:59 Intake Total 0 Balance 0 Intake: Oral 0 Other: Voiding Method Bedside Commode # Voids 3 2 # Bowel Movements 1 - Exam Head normocephalic Neck supple Lungs clear to auscultation bilaterally no wheezing or crackles Heart regular rate and rhythm S1-S2, no rub or gallop Abdomen is soft nontender nondistended positive bowel sounds no hepatosplenomegaly Extremities +2 lower extremity edema Neuro alert and orientated to 3. Essential tremor noted - Labs CBC & Chem 7: 07/27/18 08:35 07/27/18 08:35 Labs: Abnormal Lab Results - Last 24 Hours (Table) 07/27/18 07/27/18 07/27/18 Range/Units 08:35 08:35 08:35 WBC 11.0 H (3.8-10.6) k/uL RBC 3.79 L (3.80-5.40) m/uL Hgb 11.1 L (11.4-16.0) gm/dL Neutrophils # 9.1 H (1.3-7.7) k/uL PT 16.7 H (9.0-12.0) sec INR 1.7 H (<1.2) Potassium 2.9 L (3.5-5.1) mmol/L Chloride 108 H (98-107) mmol/L BUN 22 H (7-17) mg/dL Creatinine 1.28 H (0.52-1.04) mg/dL Glucose 105 H (74-99) mg/dL Calcium 10.8 H (8.4-10.2) mg/dL Total Protein 5.7 L (6.3-8.2) g/dL Albumin 2.9 L (3.5-5.0) g/dL Microbiology - Last 24 Hours (Table) 07/25/18 23:30 Blood Culture - Preliminary Blood No Growth after 24 hours 07/26/18 14:00 Urine Culture - Preliminary Urine,Voided Assessment and Plan Assessment: 1. Diverticulitis with leukocytosis. WBC 15.8. Lactic acid 1.9. CT of abdomen and pelvis completed showing inflammatory changes in the sigmoid colon with wall thickening and numerous diverticula. This could be colitis or diverticulitis. There is new free fluid in the pelvis. This chronic low abdominal aortic dissection extending into the right iliac artery appears diminished compared to last exam. There is clearing of the left pleural effusion compared to old exam. Dr. thrasher has been consulted for surgical services. Patient started on Rocephin and Flagyl for IV antibiotics. Cultures have been ordered. Repeat abdominal x-ray obtained showing gastric distention consistent with large and small bowel ileus that is a change compared to old exam there is slight decrease fecal material compared to old exam. Surgical services are following. At this time patient remains nothing by mouth. Repeat x-ray has been ordered tomorrow per surgical services. Continue Dulcolax and antibiotics 2. Urinary tract infection. Urine culture ordered. Patient currently on Flagyl and Rocephin for IV antibiotics 3. History of aortic can mechanical valve replacement. Patient is maintained on Coumadin. INR 1.7. Patient started on Lovenox 1 mg/kg per day until INR is therapeutic 4. History of essential tremor 5. Acute kidney injury. Creatinine 1.28. This does appear slightly higher than baseline for patient. We'll continue to monitor closely 6. History of cardiomyopathy status post biventricular pacemaker placement 7. History of aortic dissection repair in 1998 8. History of CVA and TIA 9. History of atrial fibrillation with cardioversion 10. Heart failure. Maintained on Lasix. 2-D echo completed in March 2015 showing EF of 50-55% DVT prophylaxis Coumadin. GI prophylaxis Protonix I performed an examination of the patient and discussed their management with the Nurse Practitioner. I have reviewed the Nurse Practitioner's notes and agree with the documented findings and plan of care
[2018-07-27] MEDS: SODIUM CHLORIDE 0.9% 1,000 ML IV SCH (14:16)
[2018-07-27] MEDS: FUROSEMIDE 40 MG TAB PO SCH (14:18)
[2018-07-27] MEDS ORDERED: WARFARIN 5 MG TAB PO ONE (18:00)
[2018-07-27] MEDS: PRAVASTATIN SODIUM 20 MG TAB PO SCH (21:13)
[2018-07-28] MEDS: ONDANSETRON 4 MG/2 ML VIAL IVP PRN ×2 (05:24→22:15)
[2018-07-28] MEDS: MORPHINE SULFATE 4 MG/ML SYRINGE IV PRN ×4 (05:24→22:12)
[2018-07-28] MEDS: SODIUM CHLORIDE 0.9% 1,000 ML IV SCH ×2 (05:34→17:55)
[2018-07-28] MEDS: metroNIDAZOLE-NS PMX 500 MG in SALINE 1 100ML.BAG IVPB SCH ×4 (05:37→23:05)
[2018-07-28] MEDS: PANTOPRAZOLE 40 MG/10 ML VIAL IVP SCH (08:23)
[2018-07-28] MEDS: ASPIRIN 81 MG PO SCH (08:24)
[2018-07-28] MEDS: ENOXAPARIN 100 MG/ML SYRINGE SQ SCH ×2 (08:24→21:29)
[2018-07-28] MEDS: CARVEDILOL 12.5 MG TAB PO SCH ×2 (08:24→22:59)
[2018-07-28] MEDS: FUROSEMIDE 80 MG TAB PO SCH (08:24)
[2018-07-28] MEDS: AMIODARONE 200 MG TAB PO SCH (08:24)
[2018-07-28] MEDS: BISACODYL 10 MG SUPP RECTAL SCH (08:26)
[2018-07-28 09:44] LABS: Basophils # (A) 0.1 k/uL (0-0.2); Basophils % (A) 1 %; Eosinophils # (A) 0.2 k/uL (0-0.7); Eosinophils % (A) 2 %; HCT 36.8 % (34.0-46.0); HGB 11.1 gm/dL (11.4-16.0); Hypochromasia Slight; INR 1.8 (<1.2); Lymphocytes # (A) 0.9 k/uL (1.0-4.8); Lymphocytes % (A) 10 %; MCH 28.1 pg (25.0-35.0); MCHC 30.1 g/dL (31.0-37.0); MCV 93.6 fL (80.0-100.0); Mean Platelet Volume 8.4; Monocytes # (A) 0.5 k/uL (0-1.0); Monocytes % (A) 5 %; Neutrophils # (A) 7.7 k/uL (1.3-7.7); Neutrophils % (A) 82 %; Platelet Count 218 k/uL (150-450); Prothrombin Time 18.2 sec (9.0-12.0); RBC 3.93 m/uL (3.80-5.40); RDW 14.2 % (11.5-15.5); WBC 9.4 k/uL (3.8-10.6)
[2018-07-28 10:07] LABS: Calcium 11.1 mg/dL (8.4-10.2); Potassium 3.6 mmol/L (3.5-5.1); Total Bilirubin 0.4 mg/dL (0.2-1.3); Total Protein 5.9 g/dL (6.3-8.2)
--- NOTE | 2018-07-28 11:33 | XR ---
EXAMINATION TYPE: XR abdomen 2V DATE OF EXAM: 07/28/2018 CLINICAL DATA: 73 year-old female evaluate distention, [facility] COMPARISON: 07/26/[address] 07/25/2018 FINDINGS: No free intraperitoneal air seen. Median sternotomy wires with pacer lead seen in the lung bases. There is progressive diffuse distention of the colon colon. The cecum may measure up to 10 cm now. Pr ominent air throughout multiple small bowel loops also demonstrated. Multiple small air-fluid levels. Surgical clips along the aorta. IMPRESSION: 1. Persistent diffuse distention of small bowel and colon. Some of the cecum is measured up to 10 cm now. This degree of distention may place it at risk for perforation. 2. Findings could represent distal colonic obstruction or severe generalized ileus. 3. No free air seen.
--- NOTE | 2018-07-28 13:39 | P.PN ---
Subjective Progress Note Date: 07/28/18 This is a 73-year-old female patient who presented to the emergency room with complaints of abdominal pain. Patient states pain started around 9 AM yesterday morning due to her right lower quadrant. Patient reports that it increased throughout the day and patient started to experience nausea and dry heaves. Patient reports last bowel movement was 3 days prior. Patient has past medical history of heart failure, CVA, hyperlipidemia, hypertension, memory impairment, essential tremor, atrial fibrillation with cardioversion, abdominal aortic dissection and repair with CVA postop, cardiac cath, aortic valve replacement with mechanical valve , patient maintained on Coumadin and biventricular pacer placed in August 2014. CT of abdomen and pelvis completed showing inflammatory changes in the sigmoid colon with wall thickening and numerous diverticula. This could be colitis or diverticulitis. There is new free fluid in the pelvis. There is chronic low abdominal aortic dissection extending into the right iliac artery that appears diminished compared to last exam. There is clearing of left pleural effusion compared to old exam. Patient started on Rocephin and Flagyl. Dr. Soto has been consulted for surgical services. This time patient is complaining of some lower abdominal discomfort. Patient denies vomiting at this time. Patient denies any bowel movement or diarrhea. Patient denies chest pain or shortness breath. Patient denies any urinary burning or frequency. Urinary analysis showing positive for leukocyte esterase. Urine culture has been ordered. On 07/27/2018 patient is currently resting in bed. Patient still complaining of some abdominal discomfort. Patient was evaluated surgical service is planning to repeat abdominal x-ray tomorrow. Patient remains nothing by mouth. INR remained subtherapeutic at 1.7. Patient remains on Lovenox 1 mg/kg until INR is therapeutic due to history of mechanical aortic valve replacement. Potassium also a 2.9 will replace per protocol. Patient is nothing by mouth we' ll place with IV at this time. Patient denies chest pain or shortness of breath. Patient denies any urinary burning or frequency. Patient is complaining of some nausea with abdominal discomfort On 07/28/2018 patient is currently resting bed complaining of some abdominal discomfort with nausea. Discussed case with surgical services patient did have bowel movement this afternoon. Repeat abdominal x-ray reviewed per surgical team. At this time patient will remain nothing by mouth. No plans for surgical intervention at this time due to patient having bowel movement. Patient denies chest pain or shortness of breath. Patient denies nausea vomiting or diarrhea. INR remained subtherapeutic at 1.8. Continue Lovenox 100 twice a day and Coumadin until therapeutic. Objective - Vital Signs Vital signs: Vital Signs Temp 99.1 F 07/28/18 06:21 Pulse 62 07/28/18 06:21 Resp 16 07/28/18 06:21 BP 101/54 07/28/18 06:21 Pulse Ox 92 L 07/28/18 06:21 Intake & Output 07/27/18 07/28/18 07/28/18 18:59 06:59 18:59 Other: Voiding Method Bedside Commode # Voids 2 1 1 # Bowel Movements 0 0 0 - Exam Head normocephalic Neck supple Lungs clear to auscultation bilaterally no wheezing or crackles Heart regular rate and rhythm S1-S2, no rub or gallop Abdomen is soft nontender nondistended positive bowel sounds no hepatosplenomegaly Extremities +2 lower extremity edema Neuro alert and orientated to 3. Essential tremor noted - Labs CBC & Chem 7: 07/28/18 08:36 07/28/18 08:36 Labs: Abnormal Lab Results - Last 24 Hours (Table) 07/28/18 07/28/18 07/28/18 Range/Units 08:36 08:36 08:36 Hgb 11.1 L (11.4-16.0) gm/dL MCHC 30.1 L (31.0-37.0) g/dL Lymphocytes # 0.9 L (1.0-4.8) k/uL PT 18.2 H (9.0-12.0) sec INR 1.8 H (<1.2) Carbon Dioxide 31 H (22-30) mmol/L BUN 21 H (7-17) mg/dL Creatinine 1.24 H (0.52-1.04) mg/dL Glucose 102 H (74-99) mg/dL Calcium 11.1 H (8.4-10.2) mg/dL Total Protein 5.9 L (6.3-8.2) g/dL Albumin 3.0 L (3.5-5.0) g/dL Microbiology - Last 24 Hours (Table) 07/25/18 23:30 Blood Culture - Preliminary Blood No Growth after 48 hours 07/26/18 14:00 Urine Culture - Final Urine,Voided Assessment and Plan Assessment: 1. Diverticulitis with leukocytosis. WBC 15.8. Lactic acid 1.9. CT of abdomen and pelvis completed showing inflammatory changes in the sigmoid colon with wall thickening and numerous diverticula. This could be colitis or diverticulitis. There is new free fluid in the pelvis. This chronic low abdominal aortic dissection extending into the right iliac artery appears diminished compared to last exam. There is clearing of the left pleural effusion compared to old exam. Dr. thrasher has been consulted for surgical services. Patient started on Rocephin and Flagyl for IV antibiotics. Cultures have been ordered. Repeat abdominal x-ray obtained showing gastric distention consistent with large and small bowel ileus that is a change compared to old exam there is slight decrease fecal material compared to old exam. Surgical services are following. At this time patient remains nothing by mouth. Repeat chest x-ray completed showing persistent diffuse distention of small bowel and colon. Some of the cecum is measured up to 10 cm now. This degree of distention may repeat a set up her prescription perforation. Findings could represent diastolic: Neck obstruction and severe generalized ileus. No free air seen. Patient did have a bowel movement post x-ray. Discussed case with surgical services. Patient to remain nothing by mouth continue monitoring at this time 2. Urinary tract infection. Urine culture ordered. Patient currently on Flagyl and Rocephin for IV antibiotics 3. History of aortic can mechanical valve replacement. Patient is maintained on Coumadin. INR 1.8. Patient started on Lovenox 1 mg/kg per day until INR is therapeutic 4. History of essential tremor 5. Acute kidney injury. Creatinine 1.28. This does appear slightly higher than baseline for patient. We'll continue to monitor closely 6. History of cardiomyopathy status post biventricular pacemaker placement 7. History of aortic dissection repair in 1998 8. History of CVA and TIA 9. History of proximal atrial fibrillation with cardioversion 10. History of chronic diastolic Heart failure. Maintained on Lasix. 2-D echo completed in March 2015 showing EF of 50-55% DVT prophylaxis Coumadin and Lovenox. GI prophylaxis Protonix I performed an examination of the patient and discussed their management with the Nurse Practitioner. I have reviewed the Nurse Practitioner's notes and agree with the documented findings and plan of care
[2018-07-28] MEDS: FUROSEMIDE 40 MG TAB PO SCH (14:08)
--- NOTE | 2018-07-28 15:35 | P.PN ---
Subjective Progress Note Date: 07/28/18 CHIEF COMPLAINT: abdominal pain HISTORY OF PRESENT ILLNESS: Abdominal x-ray this morning reveals persistent diffuse distention of small bowel and colon. Some of the cecal mass measuring up to 10 cm now. This degree of distention may place patient risk for perforation. Findings could represent distal colonic obstruction or severe generalized ileus. No free air seen. Since xray was obtained, patient has had a moderate sized bowel movement. Denies abdominal pain. Reports some intermittent nausea. Denies vomiting. PHYSICAL EXAM: VITAL SIGNS: Currently stable. GENERAL: Well-developed in no acute distress. HEENT: No sclera icterus. Extraocular movements grossly intact. Moist buccal mucosa. Head is atraumatic, normocephalic. Hears conversational speech. No nasal drainage. NECK: Supple without lymphadenopathy. CHEST: Non-labored respirations and equal bilateral excursions. CARDIOVASCULAR: Regular rate with regular rhythm. Palpable 2+ radial pulses. ABDOMEN: Distended. Tympanic bowel sounds. No pain upon palpation. MUSCULOSKELETAL: No clubbing, cyanosis or edema. NEUROLOGIC: No focal or lateralizing signs. Cranial nerves II through XII grossly intact. PSYCH: Appropriate affect. Alert and oriented to person, place and time. SKIN: Well perfused. Good skin turgor. ASSESSMENT: 1. Diverticulitis 2. Severe ileus with diffuse distention of small bowel and colon PLAN: Patient had a bowel movement after xrays were taken this morning. Ileus appears to be slowing improving. Continue antibiotics. Continue daily Dulcolax suppository. Patient to remain nothing by mouth per esania. Repeat abdominal x-ray in a.m. Nurse practitioner note has been reviewed by physician. Signing provider agrees with the documented findings, assessment, and plan of care. Objective - Vital Signs Vital signs: Vital Signs Temp 99.1 F 07/28/18 06:21 Pulse 62 07/28/18 06:21 Resp 16 07/28/18 06:21 BP 101/54 07/28/18 06:21 Pulse Ox 92 L 07/28/18 06:21 Intake & Output 07/27/18 07/28/18 07/28/18 18:59 06:59 18:59 Other: Voiding Method Bedside Commode # Voids 2 1 1 # Bowel Movements 0 0 0 - Labs CBC & Chem 7: 07/28/18 08:36 07/28/18 08:36 Labs: Abnormal Lab Results - Last 24 Hours (Table) 07/28/18 07/28/18 07/28/18 Range/Units 08:36 08:36 08:36 Hgb 11.1 L (11.4-16.0) gm/dL MCHC 30.1 L (31.0-37.0) g/dL Lymphocytes # 0.9 L (1.0-4.8) k/uL PT 18.2 H (9.0-12.0) sec INR 1.8 H (<1.2) Carbon Dioxide 31 H (22-30) mmol/L BUN 21 H (7-17) mg/dL Creatinine 1.24 H (0.52-1.04) mg/dL Glucose 102 H (74-99) mg/dL Calcium 11.1 H (8.4-10.2) mg/dL Total Protein 5.9 L (6.3-8.2) g/dL Albumin 3.0 L (3.5-5.0) g/dL Microbiology - Last 24 Hours (Table) 07/25/18 23:30 Blood Culture - Preliminary Blood No Growth after 48 hours 07/26/18 14:00 Urine Culture - Final Urine,Voided
[2018-07-28] MEDS ORDERED: WARFARIN 5 MG TAB PO ONE (18:00)
[2018-07-28] MEDS: PRAVASTATIN SODIUM 20 MG TAB PO SCH (21:29)
[2018-07-29] MEDS: SODIUM CHLORIDE 0.9% 1,000 ML IV SCH ×2 (05:17→23:17)
[2018-07-29] MEDS: metroNIDAZOLE-NS PMX 500 MG in SALINE 1 100ML.BAG IVPB SCH ×4 (05:17→23:58)
[2018-07-29] MEDS: MORPHINE SULFATE 4 MG/ML SYRINGE IV PRN (05:23)
[2018-07-29] MEDS: AMIODARONE 200 MG TAB PO SCH (07:48)
[2018-07-29] MEDS: CARVEDILOL 12.5 MG TAB PO SCH ×2 (07:48→21:50)
[2018-07-29] MEDS: PANTOPRAZOLE 40 MG/10 ML VIAL IVP SCH (07:48)
[2018-07-29] MEDS: ASPIRIN 81 MG PO SCH (07:48)
[2018-07-29] MEDS: FUROSEMIDE 80 MG TAB PO SCH (07:49)
[2018-07-29] MEDS: BISACODYL 10 MG SUPP RECTAL SCH (07:53)
--- NOTE | 2018-07-29 08:16 | XR ---
EXAMINATION TYPE: XR abdomen 2V DATE OF EXAM: 07/29/2018 CLINICAL HISTORY: Abdominal distention. TECHNIQUE: Supine and upright views of the abdomen are obtained. COMPARISON: Acute abdominal series from yesterday. Older acute abdominal series [address] abdom en and pelvis 4 days ago. FINDINGS: Gas in nondistended stomach remains present. Amount of gas-filled small and large bowel loo ps remains prominent. Gas is seen in slightly prominent small bowel loops throughout the mid to lower abdomen and pelvis. There are more suspicious gas prominent and dilated colonic loops in the periphe ry redemonstrated. Gas is noted on current study in slightly prominent rectum. Lung bases remain clear. Overlying sternal wires are redemonstrated. There is partial visualization o f pacemaker leads. Surgical clips epigastric region and mid abdomen are redemonstrated. Vascular calc ification in the central abdomen is again seen. Surgical clips in the bilateral groin are redemonstra shai there is persistent levoconvex scoliosis. There is persistent moderate narrowing in both hip join ts. No pneumoperitoneum is present. IMPRESSION: 1. Overall nonspecific bowel gas pattern. Increasing number and prominence of gas filled small and la rge bowel loops from admission. Suspect distal colitis causing partial colonic obstruction.
[2018-07-29] MEDS: ENOXAPARIN 100 MG/ML SYRINGE SQ SCH (09:27)
--- NOTE | 2018-07-29 09:46 | P.PN ---
Subjective Progress Note Date: 07/29/18 This is a 73-year-old female patient who presented to the emergency room with complaints of abdominal pain. Patient states pain started around 9 AM yesterday morning due to her right lower quadrant. Patient reports that it increased throughout the day and patient started to experience nausea and dry heaves. Patient reports last bowel movement was 3 days prior. Patient has past medical history of heart failure, CVA, hyperlipidemia, hypertension, memory impairment, essential tremor, atrial fibrillation with cardioversion, abdominal aortic dissection and repair with CVA postop, cardiac cath, aortic valve replacement with mechanical valve , patient maintained on Coumadin and biventricular pacer placed in August 2014. CT of abdomen and pelvis completed showing inflammatory changes in the sigmoid colon with wall thickening and numerous diverticula. This could be colitis or diverticulitis. There is new free fluid in the pelvis. There is chronic low abdominal aortic dissection extending into the right iliac artery that appears diminished compared to last exam. There is clearing of left pleural effusion compared to old exam. Patient started on Rocephin and Flagyl. Dr. Soto has been consulted for surgical services. This time patient is complaining of some lower abdominal discomfort. Patient denies vomiting at this time. Patient denies any bowel movement or diarrhea. Patient denies chest pain or shortness breath. Patient denies any urinary burning or frequency. Urinary analysis showing positive for leukocyte esterase. Urine culture has been ordered. On 07/27/2018 patient is currently resting in bed. Patient still complaining of some abdominal discomfort. Patient was evaluated surgical service is planning to repeat abdominal x-ray tomorrow. Patient remains nothing by mouth. INR remained subtherapeutic at 1.7. Patient remains on Lovenox 1 mg/kg until INR is therapeutic due to history of mechanical aortic valve replacement. Potassium also a 2.9 will replace per protocol. Patient is nothing by mouth we' ll place with IV at this time. Patient denies chest pain or shortness of breath. Patient denies any urinary burning or frequency. Patient is complaining of some nausea with abdominal discomfort On 07/28/2018 patient is currently resting bed complaining of some abdominal discomfort with nausea. Discussed case with surgical services patient did have bowel movement this afternoon. Repeat abdominal x-ray reviewed per surgical team. At this time patient will remain nothing by mouth. No plans for surgical intervention at this time due to patient having bowel movement. Patient denies chest pain or shortness of breath. Patient denies nausea vomiting or diarrhea. INR remained subtherapeutic at 1.8. Continue Lovenox 100 twice a day and Coumadin until therapeutic. On 07/29/2018 patient is alert and oriented 3 resting in bed. Patient still complaining of abdominal discomfort. Repeat x-ray of abdomen taken this a.m. to be assessed per surgical services. Patient did have bowel movement yesterday. Patient remains Coumadin and Lovenox aortic mechanical valve. This time patient denies chest pain or shortness breath. Patient denies nausea vomiting or diarrhea. Patient denies any urinary burning or frequency. Awaiting surgical services for further plan of care Objective - Vital Signs Vital signs: Vital Signs Temp 98.6 F 07/29/18 05:56 Pulse 67 07/29/18 05:56 Resp 18 07/29/18 05:56 BP 112/67 07/29/18 05:56 Pulse Ox 90 L 07/29/18 05:56 Intake & Output 07/28/18 07/29/18 07/29/18 18:59 06:59 18:59 Other: Voiding Method Bedside Commode # Voids 3 2 # Bowel Movements 0 0 - Exam Head normocephalic Neck supple Lungs clear to auscultation bilaterally no wheezing or crackles Heart regular rate and rhythm S1-S2, no rub or gallop Abdomen is soft nontender nondistended positive bowel sounds no hepatosplenomegaly Extremities +2 lower extremity edema Neuro alert and orientated to 3. Essential tremor noted - Labs CBC & Chem 7: 07/28/18 08:36 07/28/18 08:36 Labs: Abnormal Lab Results - Last 24 Hours (Table) 07/28/18 07/28/18 07/28/18 Range/Units 08:36 08:36 08:36 Hgb 11.1 L (11.4-16.0) gm/dL MCHC 30.1 L (31.0-37.0) g/dL Lymphocytes # 0.9 L (1.0-4.8) k/uL PT 18.2 H (9.0-12.0) sec INR 1.8 H (<1.2) Carbon Dioxide 31 H (22-30) mmol/L BUN 21 H (7-17) mg/dL Creatinine 1.24 H (0.52-1.04) mg/dL Glucose 102 H (74-99) mg/dL Calcium 11.1 H (8.4-10.2) mg/dL Total Protein 5.9 L (6.3-8.2) g/dL Albumin 3.0 L (3.5-5.0) g/dL Microbiology - Last 24 Hours (Table) 07/25/18 23:30 Blood Culture - Preliminary Blood No Growth after 72 hours Assessment and Plan Assessment: 1. Diverticulitis with leukocytosis. WBC 15.8. Lactic acid 1.9. CT of abdomen and pelvis completed showing inflammatory changes in the sigmoid colon with wall thickening and numerous diverticula. This could be colitis or diverticulitis. There is new free fluid in the pelvis. This chronic low abdominal aortic dissection extending into the right iliac artery appears diminished compared to last exam. There is clearing of the left pleural effusion compared to old exam. Dr. thrasher has been consulted for surgical services. Patient started on Rocephin and Flagyl for IV antibiotics. Cultures have been ordered. Repeat abdominal x-ray obtained showing gastric distention consistent with large and small bowel ileus that is a change compared to old exam there is slight decrease fecal material compared to old exam. Surgical services are following. At this time patient remains nothing by mouth. Repeat chest x-ray completed showing persistent diffuse distention of small bowel and colon. Some of the cecum is measured up to 10 cm now. This degree of distention may repeat a set up her prescription perforation. Findings could represent diastolic: Neck obstruction and severe generalized ileus. No free air seen. Patient did have a bowel movement post x-ray. Discussed case with surgical services. Patient to remain nothing by mouth continue monitoring at this time. Repeat abdominal x-ray has been ordered per surgical services 2. Urinary tract infection. Urine culture ordered. Patient currently on Flagyl and Rocephin for IV antibiotics 3. History of aortic can mechanical valve replacement. Patient is maintained on Coumadin. INR 1.8. Patient started on Lovenox 1 mg/kg per day until INR is therapeutic 4. History of essential tremor 5. Acute kidney injury. Creatinine 1.28. This does appear slightly higher than baseline for patient. We'll continue to monitor closely 6. History of cardiomyopathy status post biventricular pacemaker placement 7. History of aortic dissection repair in 1998 8. History of CVA and TIA 9. History of proximal atrial fibrillation with cardioversion 10. History of chronic diastolic Heart failure. Maintained on Lasix. 2-D echo completed in March 2015 showing EF of 50-55% DVT prophylaxis Coumadin and Lovenox. GI prophylaxis Protonix I performed an examination of the patient and discussed their management with the Nurse Practitioner. I have reviewed the Nurse Practitioner's notes and agree with the documented findings and plan of care
[2018-07-29 11:19] LABS: Basophils # (A) 0.1 k/uL (0-0.2); Basophils % (A) 1 %; Eosinophils # (A) 0.2 k/uL (0-0.7); Eosinophils % (A) 2 %; HGB 11.3 gm/dL (11.4-16.0); Hypochromasia Slight; Lymphocytes # (A) 0.8 k/uL (1.0-4.8); Lymphocytes % (A) 11 %; MCH 28.8 pg (25.0-35.0); MCHC 31.4 g/dL (31.0-37.0); MCV 91.6 fL (80.0-100.0); Mean Platelet Volume 7.3; Monocytes # (A) 0.4 k/uL (0-1.0); Monocytes % (A) 6 %; Neutrophils # (A) 5.7 k/uL (1.3-7.7); Neutrophils % (A) 79 %; Platelet Count 233 k/uL (150-450); RBC 3.94 m/uL (3.80-5.40); RDW 13.8 % (11.5-15.5); WBC 7.3 k/uL (3.8-10.6)
--- NOTE | 2018-07-29 11:23 | P.PN ---
Subjective Progress Note Date: 07/29/18 Principal diagnosis: Abdominal pain Patient has had little bowel function since I saw her last 48 hours ago. Patient did have some flatus this morning. She had a small bowel movement yesterday. X-rays from yesterday and today are fairly stable but do demonstrate ongoing colonic distention with primarily air. Patient complains of some dry heaves. She is having intermittent crampy pain. Pain is about the same as it has been for the last 2 days or so. Patient remains on Lovenox and Coumadin. Objective - Vital Signs Vital signs: Vital Signs Temp 98.6 F 07/29/18 05:56 Pulse 67 07/29/18 05:56 Resp 18 07/29/18 05:56 BP 112/67 07/29/18 05:56 Pulse Ox 90 L 07/29/18 05:56 Intake & Output 07/28/18 07/29/18 07/29/18 18:59 06:59 18:59 Other: Voiding Method Bedside Commode # Voids 3 2 # Bowel Movements 0 0 - Exam Abdomen distended, tympany present, mild tenderness - Labs CBC & Chem 7: 07/28/18 08:36 07/28/18 08:36 Labs: Microbiology - Last 24 Hours (Table) 07/25/18 23:30 Blood Culture - Preliminary Blood No Growth after 72 hours Assessment and Plan (1) Diverticulitis Narrative/Plan: Clinical scenario again reviewed with the patient. Digital rectal examination revealed a small amount of flatus that was evacuated and a small stool as well. No palpable masses. Will check barium enema at this time. Patient may require diverting ostomy. Current Visit: Yes Status: Acute Code(s): K57.92 - DVTRCLI OF INTEST, PART UNSP, W/O PERF OR ABSCESS W/O BLEED SNOMED Code(s): 046946565
[2018-07-29 11:33] LABS: INR 2.8 (<1.2); Prothrombin Time 27.2 sec (9.0-12.0)
[2018-07-29 11:37] LABS: Albumin 3.1 g/dL (3.5-5.0); Potassium 2.9 mmol/L (3.5-5.1); Total Bilirubin 0.5 mg/dL (0.2-1.3); Total Protein 6.4 g/dL (6.3-8.2)
--- NOTE | 2018-07-29 12:47 | FL ---
EXAMINATION TYPE: FL barium enema DATE OF EXAM: 07/29/2018 COMPARISON: Abdominal x-ray earlier today and older studies. CT abdomen and pelvis July 25, 2018 HISTORY: Abnormal x-rays, increasing wall gaseous distention particularly colonic loops. Rule out dis miki colonic obstruction. TECHNIQUE: A single contrast enema study is performed. A total of 19 seconds of fluoroscopic time wa s utilized. Isovue-370 was utilized for study. 14 spot images are saved. FINDINGS: Limited seen on contrast enema study is performed to make sure there is no distal colonic o bstruction at area of concern in the sigmoid colon. Catheter tip is inserted. Balloon is inflated. Th ere is good flow of contrast up to level of the distal transverse colon. No suspicious narrowing to s uggest significant distal colonic obstruction is identified. At this point procedure was terminated. Patient tolerated procedure well without any immediate complication and was sent back to the floor in stable condition. IMPRESSION: Limited enema study fails to show distal colonic obstruction.
[2018-07-29] MEDS: FUROSEMIDE 40 MG TAB PO SCH (13:30)
[2018-07-29] MEDS ORDERED: Potassium Replacement Protocol 1 EACH MISC MISCELLANE PRN (13:32)
--- NOTE | 2018-07-29 13:41 | P.PN ---
Progress Note - Text Progress Note Date: 07/29/18 Patient went for her barium enema today. No obstruction seen at this time. Patient was able to pass more liquid stool and flatus after the barium enema. We'll keep nothing by mouth for now until the patient's abdominal exam improves. No need for urgent surgical intervention based on barium enema findings however.
[2018-07-29] MEDS: POTASSIUM CHLORIDE 10 MEQ in WATER FOR INJECTION 1 100ML.BAG IVPB SCH ×6 (14:47→20:46)
[2018-07-29] MEDS: WARFARIN 2 MG TAB PO SCH (18:26)
[2018-07-29] MEDS: PRAVASTATIN SODIUM 20 MG TAB PO SCH (21:50)
[2018-07-30] MEDS: metroNIDAZOLE-NS PMX 500 MG in SALINE 1 100ML.BAG IVPB SCH ×4 (06:24→23:39)
[2018-07-30] MEDS: ONDANSETRON 4 MG/2 ML VIAL IVP PRN (09:11)
[2018-07-30] MEDS: AMIODARONE 200 MG TAB PO SCH (09:12)
[2018-07-30] MEDS: CARVEDILOL 12.5 MG TAB PO SCH ×2 (09:12→20:30)
[2018-07-30] MEDS: PANTOPRAZOLE 40 MG/10 ML VIAL IVP SCH (09:12)
[2018-07-30] MEDS: ASPIRIN 81 MG PO SCH (09:12)
[2018-07-30] MEDS: FUROSEMIDE 80 MG TAB PO SCH (09:12)
[2018-07-30] MEDS: BISACODYL 10 MG SUPP RECTAL SCH (09:18)
[2018-07-30] MEDS: SODIUM CHLORIDE 0.9% 1,000 ML IV SCH ×2 (09:19→20:31)
[2018-07-30 11:34] LABS: Basophils # (A) 0.1 k/uL (0-0.2); Basophils % (A) 1 %; Eosinophils # (A) 0.2 k/uL (0-0.7); Eosinophils % (A) 4 %; HCT 31.4 % (34.0-46.0); HGB 9.9 gm/dL (11.4-16.0); Lymphocytes # (A) 0.8 k/uL (1.0-4.8); Lymphocytes % (A) 14 %; MCH 28.5 pg (25.0-35.0); MCHC 31.5 g/dL (31.0-37.0); MCV 90.5 fL (80.0-100.0); Mean Platelet Volume 7.6; Monocytes # (A) 0.3 k/uL (0-1.0); Monocytes % (A) 6 %; Neutrophils # (A) 4.1 k/uL (1.3-7.7); Neutrophils % (A) 74 %; Platelet Count 224 k/uL (150-450); RBC 3.47 m/uL (3.80-5.40); WBC 5.6 k/uL (3.8-10.6)
[2018-07-30 11:41] LABS: INR 3.7 (<1.2); Prothrombin Time 35.6 sec (9.0-12.0)
[2018-07-30 11:49] LABS: Albumin 2.5 g/dL (3.5-5.0); Calcium 10.6 mg/dL (8.4-10.2); Potassium 3.3 mmol/L (3.5-5.1); Total Bilirubin 0.4 mg/dL (0.2-1.3); Total Protein 5.1 g/dL (6.3-8.2)
[2018-07-30] MEDS: WARFARIN 2 MG TAB PO SCH (11:53)
[2018-07-30] MEDS ORDERED: Potassium Replacement Protocol 1 EACH MISC MISCELLANE PRN (12:03)
--- NOTE | 2018-07-30 12:07 | P.PN ---
Subjective Progress Note Date: 07/30/18 This is a 73-year-old female patient who presented to the emergency room with complaints of abdominal pain. Patient states pain started around 9 AM yesterday morning due to her right lower quadrant. Patient reports that it increased throughout the day and patient started to experience nausea and dry heaves. Patient reports last bowel movement was 3 days prior. Patient has past medical history of heart failure, CVA, hyperlipidemia, hypertension, memory impairment, essential tremor, atrial fibrillation with cardioversion, abdominal aortic dissection and repair with CVA postop, cardiac cath, aortic valve replacement with mechanical valve , patient maintained on Coumadin and biventricular pacer placed in August 2014. CT of abdomen and pelvis completed showing inflammatory changes in the sigmoid colon with wall thickening and numerous diverticula. This could be colitis or diverticulitis. There is new free fluid in the pelvis. There is chronic low abdominal aortic dissection extending into the right iliac artery that appears diminished compared to last exam. There is clearing of left pleural effusion compared to old exam. Patient started on Rocephin and Flagyl. Dr. Soto has been consulted for surgical services. This time patient is complaining of some lower abdominal discomfort. Patient denies vomiting at this time. Patient denies any bowel movement or diarrhea. Patient denies chest pain or shortness breath. Patient denies any urinary burning or frequency. Urinary analysis showing positive for leukocyte esterase. Urine culture has been ordered. On 07/27/2018 patient is currently resting in bed. Patient still complaining of some abdominal discomfort. Patient was evaluated surgical service is planning to repeat abdominal x-ray tomorrow. Patient remains nothing by mouth. INR remained subtherapeutic at 1.7. Patient remains on Lovenox 1 mg/kg until INR is therapeutic due to history of mechanical aortic valve replacement. Potassium also a 2.9 will replace per protocol. Patient is nothing by mouth we' ll place with IV at this time. Patient denies chest pain or shortness of breath. Patient denies any urinary burning or frequency. Patient is complaining of some nausea with abdominal discomfort On 07/28/2018 patient is currently resting bed complaining of some abdominal discomfort with nausea. Discussed case with surgical services patient did have bowel movement this afternoon. Repeat abdominal x-ray reviewed per surgical team. At this time patient will remain nothing by mouth. No plans for surgical intervention at this time due to patient having bowel movement. Patient denies chest pain or shortness of breath. Patient denies nausea vomiting or diarrhea. INR remained subtherapeutic at 1.8. Continue Lovenox 100 twice a day and Coumadin until therapeutic. On 07/29/2018 patient is alert and oriented 3 resting in bed. Patient still complaining of abdominal discomfort. Repeat x-ray of abdomen taken this a.m. to be assessed per surgical services. Patient did have bowel movement yesterday. Patient remains Coumadin and Lovenox aortic mechanical valve. This time patient denies chest pain or shortness breath. Patient denies nausea vomiting or diarrhea. Patient denies any urinary burning or frequency. Awaiting surgical services for further plan of care On 07/30/2018 patient is alert and oriented 3 resting in bed. Patient underwent barium enema with Dr. thrasher yesterday. Per surgical services no obstruction seen at that time patient was able to pass with stool at the barium enema this time per surgical services continue to keep patient nothing by mouth no need for urgent surgical intervention. This time patient is still complaining of some abdominal discomfort. Abdominal distention does appear improved. Patient denies any nausea. Patient denies chest pain or shortness of breath. Patient denies any burning or frequency. Objective - Vital Signs Vital signs: Vital Signs Temp 98.6 F 07/30/18 06:00 Pulse 67 07/30/18 06:00 Resp 18 07/30/18 06:00 BP 110/48 07/30/18 06:00 Pulse Ox 94 L 07/30/18 06:00 Intake & Output 07/29/18 07/30/18 07/30/18 18:59 06:59 18:59 Weight 99.79 kg Other: Voiding Method Bedside Commode Bedside Commode # Voids 1 2 # Bowel Movements 1 1 - Exam Head normocephalic Neck supple Lungs clear to auscultation bilaterally no wheezing or crackles Heart regular rate and rhythm S1-S2, no rub or gallop Abdomen is soft nontender nondistended positive bowel sounds no hepatosplenomegaly Extremities +2 lower extremity edema Neuro alert and orientated to 3. Essential tremor noted - Labs CBC & Chem 7: 07/30/18 11:04 07/30/18 11:04 Labs: Abnormal Lab Results - Last 24 Hours (Table) 07/30/18 07/30/18 07/30/18 Range/Units 11:04 11:04 11:04 RBC 3.47 L (3.80-5.40) m/uL Hgb 9.9 L (11.4-16.0) gm/dL Hct 31.4 L (34.0-46.0) % Lymphocytes # 0.8 L (1.0-4.8) k/uL PT 35.6 H (9.0-12.0) sec INR 3.7 H (<1.2) Potassium 3.3 L (3.5-5.1) mmol/L BUN 22 H (7-17) mg/dL Calcium 10.6 H (8.4-10.2) mg/dL Total Protein 5.1 L (6.3-8.2) g/dL Albumin 2.5 L (3.5-5.0) g/dL Microbiology - Last 24 Hours (Table) 07/25/18 23:30 Blood Culture - Preliminary Blood No Growth after 96 hours Assessment and Plan Assessment: 1. Diverticulitis with leukocytosis. WBC 15.8. Lactic acid 1.9. CT of abdomen and pelvis completed showing inflammatory changes in the sigmoid colon with wall thickening and numerous diverticula. This could be colitis or diverticulitis. There is new free fluid in the pelvis. This chronic low abdominal aortic dissection extending into the right iliac artery appears diminished compared to last exam. There is clearing of the left pleural effusion compared to old exam. Dr. thrasher has been consulted for surgical services. Patient started on Rocephin and Flagyl for IV antibiotics. Cultures have been ordered. Repeat abdominal x-ray obtained showing gastric distention consistent with large and small bowel ileus that is a change compared to old exam there is slight decrease fecal material compared to old exam. Surgical services are following. At this time patient remains nothing by mouth. Repeat chest x-ray completed showing persistent diffuse distention of small bowel and colon. Some of the cecum is measured up to 10 cm now. This degree of distention may repeat a set up her prescription perforation. Findings could represent diastolic: Neck obstruction and severe generalized ileus. No free air seen. Patient did have a bowel movement post x-ray. Patient will underwent barium enema. Per surgical services no obstruction seen at that time. Patient was able to pass more liquid stool post barium enema. At this time will keep patient nothing by mouth, no urgent surgical intervention at this time per surgical services 2. Urinary tract infection. Urine culture ordered. Patient currently on Flagyl and Rocephin for IV antibiotics. Urine culture showing no growth 3. History of aortic can mechanical valve replacement. Patient is maintained on Coumadin. INR now 3.7. Patient maintained on home dose of Coumadin. Lovenox DC'd 4. History of essential tremor 5. Acute kidney injury. Creatinine 1.28. This does appear slightly higher than baseline for patient. Creatinine improving to 1.03. 6. History of cardiomyopathy status post biventricular pacemaker placement 7. History of aortic dissection repair in 1998 8. History of CVA and TIA 9. History of proximal atrial fibrillation with cardioversion 10. History of chronic diastolic Heart failure. Maintained on Lasix. 2-D echo completed in March 2015 showing EF of 50-55% 11. Hypokalemia. Continue to replace per protocol DVT prophylaxis Coumadin GI prophylaxis Protonix I performed an examination of the patient and discussed their management with the Nurse Practitioner. I have reviewed the Nurse Practitioner's notes and agree with the documented findings and plan of care
[2018-07-30] MEDS: POTASSIUM CHLORIDE 10 MEQ in WATER FOR INJECTION 1 100ML.BAG IVPB SCH ×4 (13:34→18:55)
--- NOTE | 2018-07-30 13:50 | US ---
EXAMINATION TYPE: US venous doppler duplex UE LT DATE OF EXAM: 07/30/2018 COMPARISON: NONE CLINICAL HISTORY: r/o DVT. Pt having bruising left arm/ recent multiple lab draws/ pt on blood thinne rs SIDE PERFORMED: Left Left Arm: Visualized portions appear negative for DVT Grayscale, color doppler, spectral doppler imaging performed of the deep veins of the left upper extr emity. There is normal flow, compressibility and vascular waveforms. Suboptimal study per technologi st due to patient's large body habitus. Subcutaneous edema is seen in the radial and ulnar level in t he left forearm. No obvious acute DVT. IMPRESSION: Suboptimal study without acute deep or superficial venous thrombosis in the left upper ex tremity identified.
[2018-07-30] MEDS: FUROSEMIDE 40 MG TAB PO SCH (14:19)
--- NOTE | 2018-07-30 15:41 | P.PN ---
Subjective Progress Note Date: 07/30/18 CHIEF COMPLAINT: Large bowel obstruction HISTORY OF PRESENT ILLNESS: The patient is a 73-year-old female who presented with diverticulitis versus large bowel obstruction. Enema yesterday was negative for distal obstruction. She reports moderate flatus and bowel movements. No reports of abdominal pain. PHYSICAL EXAM: VITAL SIGNS: Reviewed GENERAL: Well-developed in no acute distress. HEENT: No sclera icterus. Extraocular movements grossly intact. Moist buccal mucosa. Head is atraumatic, normocephalic. Hears conversational speech. NECK: Supple without lymphadenopathy. CHEST: Non-labored respirations and equal bilateral excursions. CARDIOVASCULAR: Palpable 2+ radial pulses. Regular rate and regular rhythm ABDOMEN: Soft. Non-distended. Nontender. MUSCULOSKELETAL: No clubbing, cyanosis. No edema. NEUROLOGIC: No focal or lateralizing signs. Cranial nerves II through XII grossly intact. PSYCH: Appropriate affect. Alert and oriented to person, place and time. SKIN: Well perfused. Good skin turgor. LABS: Reviewed STUDIES: Reviewed ASSESSMENT: 1. Ileus vs large bowel obstruction 2. Diverticulitis PLAN: 1. Patient wishes to start diet. Agreeable with clear liquid diet. Objective - Vital Signs Vital signs: Vital Signs Temp 97.8 F 07/30/18 15:00 Pulse 67 07/30/18 15:00 Resp 20 07/30/18 15:00 BP 109/69 07/30/18 15:00 Pulse Ox 90 L 07/30/18 15:00 Intake & Output 07/29/18 07/30/18 07/30/18 18:59 06:59 18:59 Intake Total 240 Output Total 0 Balance 240 Weight 99.79 kg Intake: Oral 240 Output: Emesis 0 Other: Voiding Method Bedside Commode Bedside Commode # Voids 1 2 1 # Bowel Movements 1 1 - Labs CBC & Chem 7: 07/30/18 11:04 07/30/18 11:04 Labs: Abnormal Lab Results - Last 24 Hours (Table) 07/30/18 07/30/18 07/30/18 Range/Units 11:04 11:04 11:04 RBC 3.47 L (3.80-5.40) m/uL Hgb 9.9 L (11.4-16.0) gm/dL Hct 31.4 L (34.0-46.0) % Lymphocytes # 0.8 L (1.0-4.8) k/uL PT 35.6 H (9.0-12.0) sec INR 3.7 H (<1.2) Potassium 3.3 L (3.5-5.1) mmol/L BUN 22 H (7-17) mg/dL Calcium 10.6 H (8.4-10.2) mg/dL Total Protein 5.1 L (6.3-8.2) g/dL Albumin 2.5 L (3.5-5.0) g/dL Microbiology - Last 24 Hours (Table) 07/25/18 23:30 Blood Culture - Preliminary Blood No Growth after 96 hours - Imaging and Cardiology Barium enema personally reviewed and negative for distal obstruction Assessment and Plan (1) Ileus Current Visit: Yes Status: Acute Code(s): K56.7 - ILEUS, UNSPECIFIED SNOMED Code(s): 585424731 (2) Diverticulitis large intestine Current Visit: Yes Status: Acute Code(s): K57.32 - DVTRCLI OF LG INT W/O PERFORATION OR ABSCESS W/O BLEEDING SNOMED Code(s): 7714435 (3) Diverticulitis Current Visit: Yes Status: Acute Code(s): K57.92 - DVTRCLI OF INTEST, PART UNSP, W/O PERF OR ABSCESS W/O BLEED SNOMED Code(s): 017281514 (4) Coagulopathy Current Visit: No Status: Acute Code(s): D68.9 - COAGULATION DEFECT, UNSPECIFIED SNOMED Code(s): 47800378 (5) Congestive heart failure Current Visit: No Status: Acute Code(s): I50.9 - HEART FAILURE, UNSPECIFIED SNOMED Code(s): 60523339 (6) Hypercalcemia Current Visit: No Status: Chronic Code(s): E83.52 - HYPERCALCEMIA SNOMED Code(s): 94196256
[2018-07-30] MEDS: PRAVASTATIN SODIUM 20 MG TAB PO SCH (20:30)
[2018-07-31] MEDS: metroNIDAZOLE-NS PMX 500 MG in SALINE 1 100ML.BAG IVPB SCH ×3 (06:12→17:24)
[2018-07-31] MEDS: CARVEDILOL 12.5 MG TAB PO SCH ×2 (08:09→22:22)
[2018-07-31] MEDS: AMIODARONE 200 MG TAB PO SCH (08:09)
[2018-07-31] MEDS: FUROSEMIDE 80 MG TAB PO SCH (08:09)
[2018-07-31] MEDS: ASPIRIN 81 MG PO SCH (08:09)
[2018-07-31] MEDS: PANTOPRAZOLE 40 MG/10 ML VIAL IVP SCH (08:09)
[2018-07-31] MEDS: SODIUM CHLORIDE 0.9% 1,000 ML IV SCH (08:10)
[2018-07-31] MEDS: BISACODYL 10 MG SUPP RECTAL SCH (08:10)
[2018-07-31 11:11] LABS: Basophils % (A) 1 %; Eosinophils # (A) 0.4 k/uL (0-0.7); Eosinophils % (A) 8 %; HCT 29.4 % (34.0-46.0); HGB 9.5 gm/dL (11.4-16.0); Lymphocytes # (A) 0.8 k/uL (1.0-4.8); Lymphocytes % (A) 16 %; MCH 28.9 pg (25.0-35.0); MCHC 32.5 g/dL (31.0-37.0); Mean Platelet Volume 7.5; Monocytes # (A) 0.4 k/uL (0-1.0); Monocytes % (A) 8 %; Neutrophils # (A) 3.1 k/uL (1.3-7.7); Neutrophils % (A) 65 %; Platelet Count 201 k/uL (150-450); WBC 4.7 k/uL (3.8-10.6)
[2018-07-31 11:13] LABS: INR 3.8 (<1.2); Prothrombin Time 36.9 sec (9.0-12.0)
--- NOTE | 2018-07-31 11:24 | P.PN ---
Subjective Progress Note Date: 07/31/18 This is a 73-year-old female patient who presented to the emergency room with complaints of abdominal pain. Patient states pain started around 9 AM yesterday morning due to her right lower quadrant. Patient reports that it increased throughout the day and patient started to experience nausea and dry heaves. Patient reports last bowel movement was 3 days prior. Patient has past medical history of heart failure, CVA, hyperlipidemia, hypertension, memory impairment, essential tremor, atrial fibrillation with cardioversion, abdominal aortic dissection and repair with CVA postop, cardiac cath, aortic valve replacement with mechanical valve , patient maintained on Coumadin and biventricular pacer placed in August 2014. CT of abdomen and pelvis completed showing inflammatory changes in the sigmoid colon with wall thickening and numerous diverticula. This could be colitis or diverticulitis. There is new free fluid in the pelvis. There is chronic low abdominal aortic dissection extending into the right iliac artery that appears diminished compared to last exam. There is clearing of left pleural effusion compared to old exam. Patient started on Rocephin and Flagyl. Dr. Soto has been consulted for surgical services. This time patient is complaining of some lower abdominal discomfort. Patient denies vomiting at this time. Patient denies any bowel movement or diarrhea. Patient denies chest pain or shortness breath. Patient denies any urinary burning or frequency. Urinary analysis showing positive for leukocyte esterase. Urine culture has been ordered. On 07/27/2018 patient is currently resting in bed. Patient still complaining of some abdominal discomfort. Patient was evaluated surgical service is planning to repeat abdominal x-ray tomorrow. Patient remains nothing by mouth. INR remained subtherapeutic at 1.7. Patient remains on Lovenox 1 mg/kg until INR is therapeutic due to history of mechanical aortic valve replacement. Potassium also a 2.9 will replace per protocol. Patient is nothing by mouth we' ll place with IV at this time. Patient denies chest pain or shortness of breath. Patient denies any urinary burning or frequency. Patient is complaining of some nausea with abdominal discomfort On 07/28/2018 patient is currently resting bed complaining of some abdominal discomfort with nausea. Discussed case with surgical services patient did have bowel movement this afternoon. Repeat abdominal x-ray reviewed per surgical team. At this time patient will remain nothing by mouth. No plans for surgical intervention at this time due to patient having bowel movement. Patient denies chest pain or shortness of breath. Patient denies nausea vomiting or diarrhea. INR remained subtherapeutic at 1.8. Continue Lovenox 100 twice a day and Coumadin until therapeutic. On 07/29/2018 patient is alert and oriented 3 resting in bed. Patient still complaining of abdominal discomfort. Repeat x-ray of abdomen taken this a.m. to be assessed per surgical services. Patient did have bowel movement yesterday. Patient remains Coumadin and Lovenox aortic mechanical valve. This time patient denies chest pain or shortness breath. Patient denies nausea vomiting or diarrhea. Patient denies any urinary burning or frequency. Awaiting surgical services for further plan of care On 07/30/2018 patient is alert and oriented 3 resting in bed. Patient underwent barium enema with Dr. Soto yesterday. Per surgical services no obstruction seen at that time patient was able to pass with stool at the barium enema this time per surgical services continue to keep patient nothing by mouth no need for urgent surgical intervention. This time patient is still complaining of some abdominal discomfort. Abdominal distention does appear improved. Patient denies any nausea. Patient denies chest pain or shortness of breath. Patient denies any burning or frequency. On 07/31/2018 patient is seen and examined on the medical floor, she is alert and oriented in no distress, she is feeling better, she had 7 bowel movements yesterday, and her abdomen is less distended and nontender at this time. There is no fever or chills no headache or dizziness no chest pain no shortness of breath no cough no nausea or vomiting no abdominal pain no diarrhea and no urinary symptoms. Objective - Vital Signs Vital signs: Vital Signs Temp 98.1 F 07/31/18 05:45 Pulse 63 07/31/18 05:45 Resp 20 07/31/18 08:00 BP 115/62 07/31/18 05:45 Pulse Ox 92 L 07/31/18 05:45 Intake & Output 07/30/18 07/31/18 07/31/18 18:59 06:59 18:59 Intake Total 240 300 Output Total 0 2 2 Balance 240 298 -2 Weight 93 kg Intake: Oral 240 300 Output: Stool 2 2 Emesis 0 Other: # Voids 1 3 # Bowel Movements 3 2 - Exam Head normocephalic Neck supple no JVD no goiter Lungs clear to auscultation bilaterally no wheezing or crackles Heart regular rate and rhythm S1-S2, no rub or gallop Abdomen is soft nontender nondistended positive bowel sounds no hepatosplenomegaly Extremities +2 lower extremity edema Neuro alert and orientated to 3. Essential tremor noted - Labs CBC & Chem 7: 07/31/18 10:35 07/30/18 11:04 Labs: Abnormal Lab Results - Last 24 Hours (Table) 07/30/18 07/30/18 07/30/18 Range/Units 11:04 11:04 11:04 RBC 3.47 L (3.80-5.40) m/uL Hgb 9.9 L (11.4-16.0) gm/dL Hct 31.4 L (34.0-46.0) % Lymphocytes # 0.8 L (1.0-4.8) k/uL PT 35.6 H (9.0-12.0) sec INR 3.7 H (<1.2) Potassium 3.3 L (3.5-5.1) mmol/L BUN 22 H (7-17) mg/dL Calcium 10.6 H (8.4-10.2) mg/dL Total Protein 5.1 L (6.3-8.2) g/dL Albumin 2.5 L (3.5-5.0) g/dL 07/31/18 07/31/18 Range/Units 10:35 10:35 RBC 3.30 L (3.80-5.40) m/uL Hgb 9.5 L (11.4-16.0) gm/dL Hct 29.4 L (34.0-46.0) % Lymphocytes # 0.8 L (1.0-4.8) k/uL PT 36.9 H (9.0-12.0) sec INR 3.8 H (<1.2) Potassium (3.5-5.1) mmol/L BUN (7-17) mg/dL Calcium (8.4-10.2) mg/dL Total Protein (6.3-8.2) g/dL Albumin (3.5-5.0) g/dL Microbiology - Last 24 Hours (Table) 07/25/18 23:30 Blood Culture - Preliminary Blood No Growth after 120 hours Assessment and Plan Plan: 1. Diverticulitis with leukocytosis. WBC 15.8. now down to normal. CT of abdomen and pelvis completed showing inflammatory changes in the sigmoid colon with wall thickening and numerous diverticula. This could be colitis or diverticulitis. There is new free fluid in the pelvis. This chronic low abdominal aortic dissection extending into the right iliac artery appears diminished compared to last exam. There is clearing of the left pleural effusion compared to old exam. Dr. thrasher has been consulted for surgical services. Patient started on Rocephin and Flagyl for IV antibiotics. Cultures have been ordered. Repeat abdominal x-ray obtained showing gastric distention consistent with large and small bowel ileus that is a change compared to old exam there is slight decrease fecal material compared to old exam. Surgical services are following. At this time patient remains nothing by mouth. Repeat chest x-ray completed showing persistent diffuse distention of small bowel and colon. Some of the cecum is measured up to 10 cm now. This degree of distention may repeat a set up her prescription perforation. Findings could represent diastolic: Neck obstruction and severe generalized ileus. No free air seen. Patient did have a bowel movement post x-ray. Patient will underwent barium enema. Per surgical services no obstruction seen at that time. Patient was able to pass more liquid stool post barium enema. At this time will keep patient nothing by mouth, no urgent surgical intervention at this time per surgical services 2. Urinary tract infection. Urine culture ordered. Patient currently on Flagyl and Rocephin for IV antibiotics. Urine culture showing no growth 3. History of aortic can mechanical valve replacement. Patient is maintained on Coumadin. INR now 3.7. Patient maintained on home dose of Coumadin. Lovenox DC'd 4. History of essential tremor 5. Acute kidney injury. Creatinine 1.28. This does appear slightly higher than baseline for patient. Creatinine improving to 1.03. 6. History of cardiomyopathy status post biventricular pacemaker placement 7. History of aortic dissection repair in 1998 8. History of CVA and TIA 9. History of proximal atrial fibrillation with cardioversion 10. History of chronic diastolic Heart failure. Maintained on Lasix. 2-D echo completed in March 2015 showing EF of 50-55% 11. Hypokalemia. Continue to replace per protocol DVT prophylaxis Coumadin GI prophylaxis Protonix
[2018-07-31 12:02] LABS: Albumin 2.5 g/dL (3.5-5.0); Calcium 10.4 mg/dL (8.4-10.2); Total Bilirubin 0.4 mg/dL (0.2-1.3); Total Protein 5.1 g/dL (6.3-8.2)
[2018-07-31 12:10] LABS: Potassium 2.7 mmol/L (3.5-5.1)
[2018-07-31] MEDS ORDERED: Potassium Replacement Protocol 1 EACH MISC MISCELLANE PRN (12:12)
[2018-07-31] MEDS: POTASSIUM CHLORIDE ER 20 MEQ TAB.ER PO SCH ×5 (12:52→23:34)
[2018-07-31] MEDS: FUROSEMIDE 40 MG TAB PO SCH (13:50)
--- NOTE | 2018-07-31 14:59 | P.PN ---
Subjective Progress Note Date: 07/31/18 CHIEF COMPLAINT: Large bowel obstruction HISTORY OF PRESENT ILLNESS: The patient is a 73-year-old female who presented with diverticulitis versus large bowel obstruction. Enema has been negative for obstruction. She reports moderate flatus and bowel movements. She is tolerating clear liquid diet. When offered regular diet, patient preferred to stay on liquid diet only. PHYSICAL EXAM: VITAL SIGNS: Reviewed GENERAL: Well-developed in no acute distress. HEENT: No sclera icterus. Extraocular movements grossly intact. Moist buccal mucosa. Head is atraumatic, normocephalic. Hears conversational speech. NECK: Supple without lymphadenopathy. CHEST: Non-labored respirations and equal bilateral excursions. CARDIOVASCULAR: Palpable 2+ radial pulses. Regular rate and regular rhythm ABDOMEN: Soft. Non-distended. Nontender. MUSCULOSKELETAL: No clubbing, cyanosis. No edema. NEUROLOGIC: No focal or lateralizing signs. Cranial nerves II through XII grossly intact. PSYCH: Appropriate affect. Alert and oriented to person, place and time. SKIN: Well perfused. Good skin turgor. LABS: Reviewed ASSESSMENT: 1. Ileus vs large bowel obstruction 2. Diverticulitis PLAN: 1. Continue with liquid diet. 2. No surgical intervention needed Objective - Vital Signs Vital signs: Vital Signs Temp 97.8 F 07/31/18 14:15 Pulse 75 07/31/18 14:15 Resp 18 07/31/18 14:15 BP 150/49 07/31/18 14:15 Pulse Ox 98 07/31/18 14:15 Intake & Output 07/30/18 07/31/18 07/31/18 18:59 06:59 18:59 Intake Total 240 300 Output Total 0 2 2 Balance 240 298 -2 Weight 93 kg Intake: Oral 240 300 Output: Stool 2 2 Emesis 0 Other: # Voids 1 3 3 # Bowel Movements 3 4 - Labs CBC & Chem 7: 07/31/18 10:35 07/31/18 10:35 Labs: Abnormal Lab Results - Last 24 Hours (Table) 07/31/18 07/31/18 07/31/18 Range/Units 10:35 10:35 10:35 RBC 3.30 L (3.80-5.40) m/uL Hgb 9.5 L (11.4-16.0) gm/dL Hct 29.4 L (34.0-46.0) % Lymphocytes # 0.8 L (1.0-4.8) k/uL PT 36.9 H (9.0-12.0) sec INR 3.8 H (<1.2) Potassium 2.7 L* (3.5-5.1) mmol/L Carbon Dioxide 33 H (22-30) mmol/L Glucose 118 H (74-99) mg/dL Calcium 10.4 H (8.4-10.2) mg/dL Total Protein 5.1 L (6.3-8.2) g/dL Albumin 2.5 L (3.5-5.0) g/dL Microbiology - Last 24 Hours (Table) 07/25/18 23:30 Blood Culture - Preliminary Blood No Growth after 120 hours Assessment and Plan (1) Ileus Current Visit: Yes Status: Acute Code(s): K56.7 - ILEUS, UNSPECIFIED SNOMED Code(s): 386497005 (2) Diverticulitis large intestine Current Visit: Yes Status: Acute Code(s): K57.32 - DVTRCLI OF LG INT W/O PERFORATION OR ABSCESS W/O BLEEDING SNOMED Code(s): 8984619 (3) Diverticulitis Current Visit: Yes Status: Acute Code(s): K57.92 - DVTRCLI OF INTEST, PART UNSP, W/O PERF OR ABSCESS W/O BLEED SNOMED Code(s): 372596331 (4) Coagulopathy Current Visit: No Status: Acute Code(s): D68.9 - COAGULATION DEFECT, UNSPECIFIED SNOMED Code(s): 05531978 (5) Congestive heart failure Current Visit: No Status: Acute Code(s): I50.9 - HEART FAILURE, UNSPECIFIED SNOMED Code(s): 43691677 (6) Hypercalcemia Current Visit: No Status: Chronic Code(s): E83.52 - HYPERCALCEMIA SNOMED Code(s): 13831341
[2018-07-31] MEDS ORDERED: WARFARIN 2 MG TAB PO SCH ×2 (18:00)
[2018-07-31] MEDS ORDERED: WARFARIN 0.5 MG TAB PO ONE (18:00)
[2018-07-31] MEDS: PRAVASTATIN SODIUM 20 MG TAB PO SCH (22:22)
[2018-07-31] MEDS ORDERED: MAG HYDROX/AL HYDROX/SIMETH 30 ML CUP PO PRN (22:42)
[2018-08-01] MEDS: metroNIDAZOLE-NS PMX 500 MG in SALINE 1 100ML.BAG IVPB SCH ×5 (00:19→23:48)
[2018-08-01] MEDS: MORPHINE SULFATE 4 MG/ML SYRINGE IV PRN ×2 (00:19→07:58)
[2018-08-01] MEDS: POTASSIUM CHLORIDE ER 20 MEQ TAB.ER PO SCH ×3 (00:20→05:29)
[2018-08-01] MEDS: SODIUM CHLORIDE 0.9% 1,000 ML IV SCH ×2 (04:29→11:09)
[2018-08-01] MEDS: PANTOPRAZOLE 40 MG/10 ML VIAL IVP SCH (07:58)
[2018-08-01] MEDS: ONDANSETRON 4 MG/2 ML VIAL IVP PRN (07:58)
[2018-08-01] MEDS: ASPIRIN 81 MG PO SCH (07:58)
[2018-08-01] MEDS: CARVEDILOL 12.5 MG TAB PO SCH ×2 (07:59→20:32)
[2018-08-01] MEDS: FUROSEMIDE 80 MG TAB PO SCH (07:59)
[2018-08-01] MEDS: BISACODYL 10 MG SUPP RECTAL SCH (07:59)
[2018-08-01] MEDS: AMIODARONE 200 MG TAB PO SCH (07:59)
[2018-08-01 08:14] LABS: Basophils # (A) 0.1 k/uL (0-0.2); Basophils % (A) 1 %; Eosinophils # (A) 0.4 k/uL (0-0.7); Eosinophils % (A) 8 %; HCT 31.9 % (34.0-46.0); HGB 10.4 gm/dL (11.4-16.0); Lymphocytes % (A) 21 %; MCH 29.3 pg (25.0-35.0); MCHC 32.7 g/dL (31.0-37.0); MCV 89.7 fL (80.0-100.0); Mean Platelet Volume 7.1; Monocytes # (A) 0.4 k/uL (0-1.0); Monocytes % (A) 8 %; Neutrophils # (A) 2.8 k/uL (1.3-7.7); Neutrophils % (A) 59 %; Platelet Count 241 k/uL (150-450); RBC 3.56 m/uL (3.80-5.40); RDW 14.2 % (11.5-15.5); WBC 4.8 k/uL (3.8-10.6)
[2018-08-01 08:18] LABS: INR 3.1 (<1.2); Prothrombin Time 29.4 sec (9.0-12.0)
[2018-08-01 08:26] LABS: Albumin 2.6 g/dL (3.5-5.0); Calcium 10.7 mg/dL (8.4-10.2); Potassium 3.9 mmol/L (3.5-5.1); Total Bilirubin 0.6 mg/dL (0.2-1.3); Total Protein 5.2 g/dL (6.3-8.2)
--- NOTE | 2018-08-01 11:07 | P.PN ---
Subjective Progress Note Date: 08/01/18 This is a 73-year-old female patient who presented to the emergency room with complaints of abdominal pain. Patient states pain started around 9 AM yesterday morning due to her right lower quadrant. Patient reports that it increased throughout the day and patient started to experience nausea and dry heaves. Patient reports last bowel movement was 3 days prior. Patient has past medical history of heart failure, CVA, hyperlipidemia, hypertension, memory impairment, essential tremor, atrial fibrillation with cardioversion, abdominal aortic dissection and repair with CVA postop, cardiac cath, aortic valve replacement with mechanical valve , patient maintained on Coumadin and biventricular pacer placed in August 2014. CT of abdomen and pelvis completed showing inflammatory changes in the sigmoid colon with wall thickening and numerous diverticula. This could be colitis or diverticulitis. There is new free fluid in the pelvis. There is chronic low abdominal aortic dissection extending into the right iliac artery that appears diminished compared to last exam. There is clearing of left pleural effusion compared to old exam. Patient started on Rocephin and Flagyl. Dr. Soto has been consulted for surgical services. This time patient is complaining of some lower abdominal discomfort. Patient denies vomiting at this time. Patient denies any bowel movement or diarrhea. Patient denies chest pain or shortness breath. Patient denies any urinary burning or frequency. Urinary analysis showing positive for leukocyte esterase. Urine culture has been ordered. On 07/27/2018 patient is currently resting in bed. Patient still complaining of some abdominal discomfort. Patient was evaluated surgical service is planning to repeat abdominal x-ray tomorrow. Patient remains nothing by mouth. INR remained subtherapeutic at 1.7. Patient remains on Lovenox 1 mg/kg until INR is therapeutic due to history of mechanical aortic valve replacement. Potassium also a 2.9 will replace per protocol. Patient is nothing by mouth we' ll place with IV at this time. Patient denies chest pain or shortness of breath. Patient denies any urinary burning or frequency. Patient is complaining of some nausea with abdominal discomfort On 07/28/2018 patient is currently resting bed complaining of some abdominal discomfort with nausea. Discussed case with surgical services patient did have bowel movement this afternoon. Repeat abdominal x-ray reviewed per surgical team. At this time patient will remain nothing by mouth. No plans for surgical intervention at this time due to patient having bowel movement. Patient denies chest pain or shortness of breath. Patient denies nausea vomiting or diarrhea. INR remained subtherapeutic at 1.8. Continue Lovenox 100 twice a day and Coumadin until therapeutic. On 07/29/2018 patient is alert and oriented 3 resting in bed. Patient still complaining of abdominal discomfort. Repeat x-ray of abdomen taken this a.m. to be assessed per surgical services. Patient did have bowel movement yesterday. Patient remains Coumadin and Lovenox aortic mechanical valve. This time patient denies chest pain or shortness breath. Patient denies nausea vomiting or diarrhea. Patient denies any urinary burning or frequency. Awaiting surgical services for further plan of care On 07/30/2018 patient is alert and oriented 3 resting in bed. Patient underwent barium enema with Dr. thrasher yesterday. Per surgical services no obstruction seen at that time patient was able to pass with stool at the barium enema this time per surgical services continue to keep patient nothing by mouth no need for urgent surgical intervention. This time patient is still complaining of some abdominal discomfort. Abdominal distention does appear improved. Patient denies any nausea. Patient denies chest pain or shortness of breath. Patient denies any burning or frequency. On 07/31/2018 patient is seen and examined on the medical floor, she is alert and oriented in no distress, she is feeling better, she had 7 bowel movements yesterday, and her abdomen is less distended and nontender at this time. There is no fever or chills no headache or dizziness no chest pain no shortness of breath no cough no nausea or vomiting no abdominal pain no diarrhea and no urinary symptoms. On 08/01/2018 patient is alert and oriented 3. Patient states she is feeling better. Patient continuing to multiple bowel movements. Patient is less distended. Patient maintained on clear liquid diets per surgical team. Patient does reports she had one episode of emesis this AM. At this time patient denies chest pain or shortness breath. Patient denies nausea vomiting or diarrhea. Patient denies any urinary burning or frequency Objective - Vital Signs Vital signs: Vital Signs Temp 99.4 F 08/01/18 06:00 Pulse 59 L 08/01/18 06:00 Resp 18 08/01/18 06:00 BP 137/59 08/01/18 06:00 Pulse Ox 93 L 08/01/18 06:00 Intake & Output 07/31/18 08/01/18 08/01/18 18:59 06:59 18:59 Intake Total 600 Output Total 2 2 Balance -2 600 -2 Weight 86.5 kg Intake: Oral 600 Output: Stool 2 2 Other: Voiding Method Bedside Commode Bedside Commode # Voids 4 2 # Bowel Movements 5 2 - Exam Head normocephalic Neck supple Lungs clear to auscultation bilaterally no wheezing or crackles Heart regular rate and rhythm S1-S2, no rub or gallop Abdomen is soft nontender nondistended positive bowel sounds no hepatosplenomegaly Extremities +2 lower extremity edema Neuro alert and orientated to 3. Essential tremor noted - Labs CBC & Chem 7: 08/01/18 06:51 08/01/18 06:51 Labs: Abnormal Lab Results - Last 24 Hours (Table) 07/31/18 07/31/18 07/31/18 Range/Units 10:35 10:35 10:35 RBC 3.30 L (3.80-5.40) m/uL Hgb 9.5 L (11.4-16.0) gm/dL Hct 29.4 L (34.0-46.0) % Lymphocytes # 0.8 L (1.0-4.8) k/uL PT 36.9 H (9.0-12.0) sec INR 3.8 H (<1.2) Potassium 2.7 L* (3.5-5.1) mmol/L Carbon Dioxide 33 H (22-30) mmol/L Glucose 118 H (74-99) mg/dL Calcium 10.4 H (8.4-10.2) mg/dL AST (14-36) U/L Total Protein 5.1 L (6.3-8.2) g/dL Albumin 2.5 L (3.5-5.0) g/dL 07/31/18 08/01/18 08/01/18 Range/Units 18:59 01:41 06:51 RBC 3.56 L (3.80-5.40) m/uL Hgb 10.4 L (11.4-16.0) gm/dL Hct 31.9 L (34.0-46.0) % Lymphocytes # (1.0-4.8) k/uL PT (9.0-12.0) sec INR (<1.2) Potassium 2.8 L 3.0 L (3.5-5.1) mmol/L Carbon Dioxide (22-30) mmol/L Glucose (74-99) mg/dL Calcium (8.4-10.2) mg/dL AST (14-36) U/L Total Protein (6.3-8.2) g/dL Albumin (3.5-5.0) g/dL 08/01/18 08/01/18 Range/Units 06:51 06:51 RBC (3.80-5.40) m/uL Hgb (11.4-16.0) gm/dL Hct (34.0-46.0) % Lymphocytes # (1.0-4.8) k/uL PT 29.4 H (9.0-12.0) sec INR 3.1 H (<1.2) Potassium (3.5-5.1) mmol/L Carbon Dioxide 35 H (22-30) mmol/L Glucose (74-99) mg/dL Calcium 10.7 H (8.4-10.2) mg/dL AST 55 H (14-36) U/L Total Protein 5.2 L (6.3-8.2) g/dL Albumin 2.6 L (3.5-5.0) g/dL Microbiology - Last 24 Hours (Table) 07/25/18 23:30 Blood Culture - Final Blood No Growth after 144 hours Assessment and Plan Assessment: 1. Diverticulitis with leukocytosis. WBC 15.8. Lactic acid 1.9. CT of abdomen and pelvis completed showing inflammatory changes in the sigmoid colon with wall thickening and numerous diverticula. This could be colitis or diverticulitis. There is new free fluid in the pelvis. This chronic low abdominal aortic dissection extending into the right iliac artery appears diminished compared to last exam. There is clearing of the left pleural effusion compared to old exam. Dr. thrasher has been consulted for surgical services. Patient started on Rocephin and Flagyl for IV antibiotics. Cultures have been ordered. Repeat abdominal x-ray obtained showing gastric distention consistent with large and small bowel ileus that is a change compared to old exam there is slight decrease fecal material compared to old exam. Surgical services are following. At this time patient remains nothing by mouth. Repeat chest x-ray completed showing persistent diffuse distention of small bowel and colon. Some of the cecum is measured up to 10 cm now. This degree of distention may repeat a set up her prescription perforation. Findings could represent diastolic: Neck obstruction and severe generalized ileus. No free air seen. Patient did have a bowel movement post x-ray. Patient will underwent barium enema. Per surgical services no obstruction seen at that time. Patient was able to pass more liquid stool post barium enema. At this time will keep patient nothing by mouth, no urgent surgical intervention at this time per surgical services 2. Urinary tract infection. Urine culture ordered. Patient currently on Flagyl and Rocephin for IV antibiotics. Urine culture showing no growth 3. History of aortic can mechanical valve replacement. Patient is maintained on Coumadin. INR now 3.7. Patient maintained on home dose of Coumadin. Lovenox DC'd. INR 3.1. Patient received 2 mg of Coumadin tonight 4. History of essential tremor 5. Acute kidney injury. Creatinine 1.28. This does appear slightly higher than baseline for patient. Creatinine improving to 1.03. 6. History of cardiomyopathy status post biventricular pacemaker placement 7. History of aortic dissection repair in 1998 8. History of CVA and TIA 9. History of proximal atrial fibrillation with cardioversion 10. History of chronic diastolic Heart failure. Maintained on Lasix. 2-D echo completed in March 2015 showing EF of 50-55% 11. Hypokalemia. Continue to replace per protocol 12. Anemia. Iron studies will be ordered DVT prophylaxis Coumadin GI prophylaxis Protonix I performed an examination of the patient and discussed their management with the Nurse Practitioner. I have reviewed the Nurse Practitioner's notes and agree with the documented findings and plan of care
--- NOTE | 2018-08-01 12:47 | P.PN ---
<Kati Reyna - Last Filed: 08/01/18 12:45> Subjective Progress Note Date: 08/01/18 CHIEF COMPLAINT: abdominal pain HISTORY OF PRESENT ILLNESS: Patient examined at the bedside. She denies abdominal pain. Denies nausea or vomiting. She reports passing flatus and having BMs. Tolerating clear liquid diet and requesting diet to be advanced. PHYSICAL EXAM: VITAL SIGNS: Currently stable. GENERAL: Well-developed in no acute distress. HEENT: No sclera icterus. Extraocular movements grossly intact. Moist buccal mucosa. Head is atraumatic, normocephalic. Hears conversational speech. No nasal drainage. NECK: Supple without lymphadenopathy. CHEST: Non-labored respirations and equal bilateral excursions. CARDIOVASCULAR: Regular rate with regular rhythm. Palpable 2+ radial pulses. ABDOMEN: Soft. Distention significantly improved. Positive bowel sounds. MUSCULOSKELETAL: No clubbing, cyanosis or edema. NEUROLOGIC: No focal or lateralizing signs. Cranial nerves II through XII grossly intact. PSYCH: Appropriate affect. Alert and oriented to person, place and time. SKIN: Well perfused. Good skin turgor. ASSESSMENT: 1. Diverticulitis 2. Severe ileus with diffuse distention of small bowel and colon PLAN: 1. May advance to full liquid diet 2. No surgical intervention recommended at this time Nurse practitioner note has been reviewed by physician. Signing provider agrees with the documented findings, assessment, and plan of care. Objective - Vital Signs Vital signs: Vital Signs Temp 99.4 F 08/01/18 06:00 Pulse 59 L 08/01/18 06:00 Resp 18 08/01/18 06:00 BP 137/59 08/01/18 06:00 Pulse Ox 93 L 08/01/18 06:00 Intake & Output 07/31/18 08/01/18 08/01/18 18:59 06:59 18:59 Intake Total 600 Output Total 2 2 Balance -2 600 -2 Weight 86.5 kg Intake: Oral 600 Output: Stool 2 2 Other: Voiding Method Bedside Commode Bedside Commode # Voids 4 2 1 # Bowel Movements 5 2 - Labs CBC & Chem 7: 08/01/18 06:51 08/01/18 06:51 Labs: Abnormal Lab Results - Last 24 Hours (Table) 07/31/18 08/01/18 08/01/18 Range/Units 18:59 01:41 06:51 RBC 3.56 L (3.80-5.40) m/uL Hgb 10.4 L (11.4-16.0) gm/dL Hct 31.9 L (34.0-46.0) % PT (9.0-12.0) sec INR (<1.2) Potassium 2.8 L 3.0 L (3.5-5.1) mmol/L Carbon Dioxide (22-30) mmol/L Calcium (8.4-10.2) mg/dL AST (14-36) U/L Total Protein (6.3-8.2) g/dL Albumin (3.5-5.0) g/dL 08/01/18 08/01/18 Range/Units 06:51 06:51 RBC (3.80-5.40) m/uL Hgb (11.4-16.0) gm/dL Hct (34.0-46.0) % PT 29.4 H (9.0-12.0) sec INR 3.1 H (<1.2) Potassium (3.5-5.1) mmol/L Carbon Dioxide 35 H (22-30) mmol/L Calcium 10.7 H (8.4-10.2) mg/dL AST 55 H (14-36) U/L Total Protein 5.2 L (6.3-8.2) g/dL Albumin 2.6 L (3.5-5.0) g/dL Microbiology - Last 24 Hours (Table) 07/25/18 23:30 Blood Culture - Final Blood No Growth after 144 hours <Jonathan Soto - Last Filed: 08/01/18 15:54> Subjective As above. Patient doing quite well at this time. Over the weekend the patient had improving bowel function. She is now tolerating her diet. She had 1 episode of nausea and vomiting this morning however. She does not feel bloated currently. She states she is becoming more active. We'll add lactulose daily. Will discontinue Dulcolax suppositories at this time. Continue increasing activities. Continue antibiotics for suspected diverticulitis/colitis. Patient may be discharged if tolerates diet on oral antibiotics. Recommend colonoscopy in 6-8 weeks. Objective - Vital Signs Vital signs: Vital Signs Temp 98.4 F 08/01/18 14:10 Pulse 72 08/01/18 14:10 Resp 20 08/01/18 14:10 BP 135/66 08/01/18 14:10 Pulse Ox 92 L 08/01/18 14:10 Intake & Output 07/31/18 08/01/18 08/01/18 18:59 06:59 18:59 Intake Total 600 Output Total 2 2 Balance -2 600 -2 Weight 86.5 kg Intake: Oral 600 Output: Stool 2 2 Other: Voiding Method Bedside Commode Bedside Commode # Voids 4 2 1 # Bowel Movements 5 2 - Labs CBC & Chem 7: 08/01/18 06:51 08/01/18 06:51 Labs: Abnormal Lab Results - Last 24 Hours (Table) 07/31/18 08/01/18 08/01/18 Range/Units 18:59 01:41 06:51 RBC 3.56 L (3.80-5.40) m/uL Hgb 10.4 L (11.4-16.0) gm/dL Hct 31.9 L (34.0-46.0) % PT (9.0-12.0) sec INR (<1.2) Potassium 2.8 L 3.0 L (3.5-5.1) mmol/L Carbon Dioxide (22-30) mmol/L Calcium (8.4-10.2) mg/dL AST (14-36) U/L Total Protein (6.3-8.2) g/dL Albumin (3.5-5.0) g/dL 08/01/18 08/01/18 Range/Units 06:51 06:51 RBC (3.80-5.40) m/uL Hgb (11.4-16.0) gm/dL Hct (34.0-46.0) % PT 29.4 H (9.0-12.0) sec INR 3.1 H (<1.2) Potassium (3.5-5.1) mmol/L Carbon Dioxide 35 H (22-30) mmol/L Calcium 10.7 H (8.4-10.2) mg/dL AST 55 H (14-36) U/L Total Protein 5.2 L (6.3-8.2) g/dL Albumin 2.6 L (3.5-5.0) g/dL Microbiology - Last 24 Hours (Table) 07/25/18 23:30 Blood Culture - Final Blood No Growth after 144 hours Assessment and Plan (1) Diverticulitis Current Visit: Yes Status: Acute Code(s): K57.92 - DVTRCLI OF INTEST, PART UNSP, W/O PERF OR ABSCESS W/O BLEED SNOMED Code(s): 772166404
[2018-08-01] MEDS: FUROSEMIDE 40 MG TAB PO SCH (13:02)
[2018-08-01 17:07] LABS: Iron Saturation 16.82 (12.00-45.00)
[2018-08-01] MEDS ORDERED: WARFARIN 2 MG TAB PO ONE (18:00)
[2018-08-01] MEDS: PRAVASTATIN SODIUM 20 MG TAB PO SCH (20:32)
[2018-08-02] MEDS: metroNIDAZOLE-NS PMX 500 MG in SALINE 1 100ML.BAG IVPB SCH (05:56)
[2018-08-02] MEDS: SODIUM CHLORIDE 0.9% 1,000 ML IV SCH ×2 (05:56→17:35)
[2018-08-02] MEDS: PANTOPRAZOLE 40 MG/10 ML VIAL IVP SCH (08:27)
[2018-08-02] MEDS: ASPIRIN 81 MG PO SCH (08:28)
[2018-08-02] MEDS: LACTULOSE 20 GM/30 ML CUP PO SCH ×2 (08:28→08:33)
[2018-08-02] MEDS: AMIODARONE 200 MG TAB PO SCH (08:28)
[2018-08-02] MEDS: FUROSEMIDE 80 MG TAB PO SCH (08:28)
[2018-08-02] MEDS: CARVEDILOL 12.5 MG TAB PO SCH ×2 (08:28→22:20)
[2018-08-02 09:17] LABS: Basophils # (A) 0.1 k/uL (0-0.2); Basophils % (A) 1 %; Eosinophils # (A) 0.4 k/uL (0-0.7); Eosinophils % (A) 6 %; HCT 32.5 % (34.0-46.0); Hypochromasia Slight; Lymphocytes # (A) 1.1 k/uL (1.0-4.8); Lymphocytes % (A) 19 %; MCH 28.5 pg (25.0-35.0); MCHC 30.7 g/dL (31.0-37.0); Mean Platelet Volume 7.6; Monocytes # (A) 0.3 k/uL (0-1.0); Monocytes % (A) 5 %; Neutrophils % (A) 68 %; Platelet Count 264 k/uL (150-450); RBC 3.49 m/uL (3.80-5.40); RDW 14.7 % (11.5-15.5)
[2018-08-02 09:35] LABS: Albumin 2.6 g/dL (3.5-5.0); Calcium 10.8 mg/dL (8.4-10.2); Potassium 3.6 mmol/L (3.5-5.1); Total Bilirubin 0.6 mg/dL (0.2-1.3); Total Protein 5.4 g/dL (6.3-8.2)
[2018-08-02 09:37] LABS: Prothrombin Time 28.6 sec (9.0-12.0)
--- NOTE | 2018-08-02 10:47 | P.PN ---
Subjective Progress Note Date: 08/02/18 This is a 73-year-old female patient who presented to the emergency room with complaints of abdominal pain. Patient states pain started around 9 AM yesterday morning due to her right lower quadrant. Patient reports that it increased throughout the day and patient started to experience nausea and dry heaves. Patient reports last bowel movement was 3 days prior. Patient has past medical history of heart failure, CVA, hyperlipidemia, hypertension, memory impairment, essential tremor, atrial fibrillation with cardioversion, abdominal aortic dissection and repair with CVA postop, cardiac cath, aortic valve replacement with mechanical valve , patient maintained on Coumadin and biventricular pacer placed in August 2014. CT of abdomen and pelvis completed showing inflammatory changes in the sigmoid colon with wall thickening and numerous diverticula. This could be colitis or diverticulitis. There is new free fluid in the pelvis. There is chronic low abdominal aortic dissection extending into the right iliac artery that appears diminished compared to last exam. There is clearing of left pleural effusion compared to old exam. Patient started on Rocephin and Flagyl. Dr. Soto has been consulted for surgical services. This time patient is complaining of some lower abdominal discomfort. Patient denies vomiting at this time. Patient denies any bowel movement or diarrhea. Patient denies chest pain or shortness breath. Patient denies any urinary burning or frequency. Urinary analysis showing positive for leukocyte esterase. Urine culture has been ordered. On 07/27/2018 patient is currently resting in bed. Patient still complaining of some abdominal discomfort. Patient was evaluated surgical service is planning to repeat abdominal x-ray tomorrow. Patient remains nothing by mouth. INR remained subtherapeutic at 1.7. Patient remains on Lovenox 1 mg/kg until INR is therapeutic due to history of mechanical aortic valve replacement. Potassium also a 2.9 will replace per protocol. Patient is nothing by mouth we' ll place with IV at this time. Patient denies chest pain or shortness of breath. Patient denies any urinary burning or frequency. Patient is complaining of some nausea with abdominal discomfort On 07/28/2018 patient is currently resting bed complaining of some abdominal discomfort with nausea. Discussed case with surgical services patient did have bowel movement this afternoon. Repeat abdominal x-ray reviewed per surgical team. At this time patient will remain nothing by mouth. No plans for surgical intervention at this time due to patient having bowel movement. Patient denies chest pain or shortness of breath. Patient denies nausea vomiting or diarrhea. INR remained subtherapeutic at 1.8. Continue Lovenox 100 twice a day and Coumadin until therapeutic. On 07/29/2018 patient is alert and oriented 3 resting in bed. Patient still complaining of abdominal discomfort. Repeat x-ray of abdomen taken this a.m. to be assessed per surgical services. Patient did have bowel movement yesterday. Patient remains Coumadin and Lovenox aortic mechanical valve. This time patient denies chest pain or shortness breath. Patient denies nausea vomiting or diarrhea. Patient denies any urinary burning or frequency. Awaiting surgical services for further plan of care On 07/30/2018 patient is alert and oriented 3 resting in bed. Patient underwent barium enema with Dr. thrasher yesterday. Per surgical services no obstruction seen at that time patient was able to pass with stool at the barium enema this time per surgical services continue to keep patient nothing by mouth no need for urgent surgical intervention. This time patient is still complaining of some abdominal discomfort. Abdominal distention does appear improved. Patient denies any nausea. Patient denies chest pain or shortness of breath. Patient denies any burning or frequency. On 07/31/2018 patient is seen and examined on the medical floor, she is alert and oriented in no distress, she is feeling better, she had 7 bowel movements yesterday, and her abdomen is less distended and nontender at this time. There is no fever or chills no headache or dizziness no chest pain no shortness of breath no cough no nausea or vomiting no abdominal pain no diarrhea and no urinary symptoms. On 08/01/2018 patient is alert and oriented 3. Patient states she is feeling better. Patient continuing to multiple bowel movements. Patient is less distended. Patient maintained on clear liquid diets per surgical team. Patient does reports she had one episode of emesis this AM. At this time patient denies chest pain or shortness breath. Patient denies nausea vomiting or diarrhea. Patient denies any urinary burning or frequency On 08/02/2018 patient is alert and oriented 3. Patient states significant improvement with abdominal discomfort and distention. Patient is having bowel movements. Patient has been tolerating diet. Patient denies nausea or vomiting. Patient denies chest pain or shortness breath. Patient denies any urinary burning or frequency. Objective - Vital Signs Vital signs: Vital Signs Temp 98.3 F 08/02/18 07:00 Pulse 60 08/02/18 07:00 Resp 18 08/02/18 07:00 BP 123/57 08/02/18 07:00 Pulse Ox 92 L 08/02/18 07:00 Intake & Output 08/01/18 08/02/18 08/02/18 18:59 06:59 18:59 Intake Total 650 Output Total 2 Balance -2 650 Weight 86.5 kg 93.5 kg Intake: Oral 650 Output: Stool 2 Other: Voiding Method Bedside Commode Bedside Commode # Voids 1 1 # Bowel Movements 1 - Exam Head normocephalic Neck supple Lungs clear to auscultation bilaterally no wheezing or crackles Heart regular rate and rhythm S1-S2, no rub or gallop Abdomen is soft nontender nondistended positive bowel sounds no hepatosplenomegaly Extremities +2 lower extremity edema Neuro alert and orientated to 3. Essential tremor noted - Labs CBC & Chem 7: 08/02/18 08:51 08/02/18 08:51 Labs: Abnormal Lab Results - Last 24 Hours (Table) 08/01/18 08/02/18 08/02/18 Range/Units 06:51 08:51 08:51 RBC 3.49 L (3.80-5.40) m/uL Hgb 10.0 L (11.4-16.0) gm/dL Hct 32.5 L (34.0-46.0) % MCHC 30.7 L (31.0-37.0) g/dL PT 28.6 H (9.0-12.0) sec INR 3.0 H (<1.2) Chloride (98-107) mmol/L Glucose (74-99) mg/dL Calcium (8.4-10.2) mg/dL Iron 36 L (50-170) ug/dL TIBC 214 L (228-460) ug/dL AST (14-36) U/L Total Protein (6.3-8.2) g/dL Albumin (3.5-5.0) g/dL 08/02/18 Range/Units 08:51 RBC (3.80-5.40) m/uL Hgb (11.4-16.0) gm/dL Hct (34.0-46.0) % MCHC (31.0-37.0) g/dL PT (9.0-12.0) sec INR (<1.2) Chloride 108 H (98-107) mmol/L Glucose 153 H (74-99) mg/dL Calcium 10.8 H (8.4-10.2) mg/dL Iron (50-170) ug/dL TIBC (228-460) ug/dL AST 44 H (14-36) U/L Total Protein 5.4 L (6.3-8.2) g/dL Albumin 2.6 L (3.5-5.0) g/dL Assessment and Plan Assessment: 1. Diverticulitis with leukocytosis. WBC 15.8. Lactic acid 1.9. CT of abdomen and pelvis completed showing inflammatory changes in the sigmoid colon with wall thickening and numerous diverticula. This could be colitis or diverticulitis. There is new free fluid in the pelvis. This chronic low abdominal aortic dissection extending into the right iliac artery appears diminished compared to last exam. There is clearing of the left pleural effusion compared to old exam. Dr. thrasher has been consulted for surgical services. Patient started on Rocephin and Flagyl for IV antibiotics. Cultures have been ordered. Repeat abdominal x-ray obtained showing gastric distention consistent with large and small bowel ileus that is a change compared to old exam there is slight decrease fecal material compared to old exam. Surgical services are following. At this time patient remains nothing by mouth. Repeat chest x-ray completed showing persistent diffuse distention of small bowel and colon. Some of the cecum is measured up to 10 cm now. This degree of distention may repeat a set up her prescription perforation. Findings could represent diastolic: Neck obstruction and severe generalized ileus. No free air seen. Patient did have a bowel movement post x-ray. Patient will underwent barium enema. Per surgical services no obstruction seen at that time. Patient was able to pass more liquid stool post barium enema. Diet has been advanced to regular diet per surgical services. Patient stating much improvement. Continue to monitor closely 2. Urinary tract infection. Urine culture ordered. Patient currently on Flagyl and Rocephin for IV antibiotics. Urine culture showing no growth 3. History of aortic can mechanical valve replacement. Patient is maintained on Coumadin. INR now 3.7. Patient maintained on home dose of Coumadin. Lovenox DC'd. INR 3.1. Patient received 2 mg of Coumadin tonight 4. History of essential tremor 5. Acute kidney injury. Creatinine 1.28. This does appear slightly higher than baseline for patient. Creatinine improving to 1.03. 6. History of cardiomyopathy status post biventricular pacemaker placement 7. History of aortic dissection repair in 1998 8. History of CVA and TIA 9. History of proximal atrial fibrillation with cardioversion 10. History of chronic diastolic Heart failure. Maintained on Lasix. 2-D echo completed in March 2015 showing EF of 50-55% 11. Hypokalemia. Continue to replace per protocol 12. Anemia. Iron studies will be ordered DVT prophylaxis Coumadin GI prophylaxis Protonix Social work has been consulted for discharge planning to rehab. [facility] I performed an examination of the patient and discussed their management with the Nurse Practitioner. I have reviewed the Nurse Practitioner's notes and agree with the documented findings and plan of care
[2018-08-02] MEDS: FUROSEMIDE 40 MG TAB PO SCH (14:28)
[2018-08-02] MEDS ORDERED: SODIUM FERRIC GLUCONAT-SUCROSE 125 MG in SODIUM CHLORIDE 0.9% 100 ML IVPB ONE (14:30)
[2018-08-02 15:07] VITALS: RESP 20
--- NOTE | 2018-08-02 15:39 | P.PN ---
Subjective Progress Note Date: 08/02/18 Principal diagnosis: Abdominal pain Patient doing well today. Having loose stools. Mild nausea but no vomiting. Denies abdominal pain. Objective - Vital Signs Vital signs: Vital Signs Temp 98.1 F 08/02/18 15:00 Pulse 66 08/02/18 15:00 Resp 20 08/02/18 15:00 BP 136/88 08/02/18 15:00 Pulse Ox 95 08/02/18 15:00 Intake & Output 08/01/18 08/02/18 08/02/18 18:59 06:59 18:59 Intake Total 650 990 Output Total 2 Balance -2 650 990 Weight 86.5 kg 93.5 kg Intake: Oral 650 990 Output: Stool 2 Other: Voiding Method Bedside Commode Bedside Commode # Voids 1 1 4 # Bowel Movements 1 4 - Exam Abdomen: Soft, nondistended, nontender - Labs CBC & Chem 7: 08/02/18 08:51 08/02/18 08:51 Labs: Abnormal Lab Results - Last 24 Hours (Table) 08/01/18 08/02/18 08/02/18 Range/Units 06:51 08:51 08:51 RBC 3.49 L (3.80-5.40) m/uL Hgb 10.0 L (11.4-16.0) gm/dL Hct 32.5 L (34.0-46.0) % MCHC 30.7 L (31.0-37.0) g/dL PT 28.6 H (9.0-12.0) sec INR 3.0 H (<1.2) Chloride (98-107) mmol/L Glucose (74-99) mg/dL Calcium (8.4-10.2) mg/dL Iron 36 L (50-170) ug/dL TIBC 214 L (228-460) ug/dL AST (14-36) U/L Total Protein (6.3-8.2) g/dL Albumin (3.5-5.0) g/dL 08/02/18 Range/Units 08:51 RBC (3.80-5.40) m/uL Hgb (11.4-16.0) gm/dL Hct (34.0-46.0) % MCHC (31.0-37.0) g/dL PT (9.0-12.0) sec INR (<1.2) Chloride 108 H (98-107) mmol/L Glucose 153 H (74-99) mg/dL Calcium 10.8 H (8.4-10.2) mg/dL Iron (50-170) ug/dL TIBC (228-460) ug/dL AST 44 H (14-36) U/L Total Protein 5.4 L (6.3-8.2) g/dL Albumin 2.6 L (3.5-5.0) g/dL Assessment and Plan (1) Diverticulitis Narrative/Plan: Continue regular diet. Continue antibiotics for possible mild diverticulitis. Will plan outpatient follow-up to discuss colonoscopy. We'll sign off at this point. Please call if needed. Current Visit: Yes Status: Acute Code(s): K57.92 - DVTRCLI OF INTEST, PART UNSP, W/O PERF OR ABSCESS W/O BLEED SNOMED Code(s): 426193810
[2018-08-02] MEDS ORDERED: WARFARIN 2 MG TAB PO ONE (18:00)
[2018-08-02] MEDS: PRAVASTATIN SODIUM 20 MG TAB PO SCH (22:20)
[2018-08-03] MEDS: SODIUM CHLORIDE 0.9% 1,000 ML IV SCH (06:30)
[2018-08-03] MEDS: LACTULOSE 20 GM/30 ML CUP PO SCH (07:49)
[2018-08-03] MEDS: CARVEDILOL 12.5 MG TAB PO SCH (07:50)
[2018-08-03] MEDS: FUROSEMIDE 80 MG TAB PO SCH (07:50)
[2018-08-03] MEDS: ASPIRIN 81 MG PO SCH (07:50)
[2018-08-03] MEDS: AMIODARONE 200 MG TAB PO SCH (07:50)
[2018-08-03] MEDS ORDERED: PANTOPRAZOLE 40 MG TABLET PO SCH (09:00)
[2018-08-03 09:06] LABS: Basophils % (A) 1 %; Eosinophils # (A) 0.4 k/uL (0-0.7); Eosinophils % (A) 7 %; HGB 9.7 gm/dL (11.4-16.0); Hypochromasia Slight; Lymphocytes # (A) 1.1 k/uL (1.0-4.8); Lymphocytes % (A) 21 %; MCH 29.8 pg (25.0-35.0); MCHC 32.2 g/dL (31.0-37.0); MCV 92.5 fL (80.0-100.0); Mean Platelet Volume 7.3; Monocytes # (A) 0.2 k/uL (0-1.0); Monocytes % (A) 4 %; Neutrophils # (A) 3.3 k/uL (1.3-7.7); Neutrophils % (A) 65 %; Platelet Count 231 k/uL (150-450); RBC 3.25 m/uL (3.80-5.40); RDW 15.6 % (11.5-15.5); WBC 5.1 k/uL (3.8-10.6)
[2018-08-03 09:15] LABS: INR 2.4 (<1.2); Prothrombin Time 23.4 sec (9.0-12.0)
[2018-08-03 09:32] LABS: Albumin 2.4 g/dL (3.5-5.0); Calcium 10.4 mg/dL (8.4-10.2); Potassium 3.1 mmol/L (3.5-5.1); Total Bilirubin 0.6 mg/dL (0.2-1.3)
[2018-08-03 11:22] VITALS: BMI 31.9
[2018-08-03] MEDS: FUROSEMIDE 40 MG TAB PO SCH (14:12)
--- NOTE | 2018-08-03 14:33 | P.DS ---
Providers Date of admission: 07/27/18 10:36 Expected date of discharge: 08/03/18 Attending physician: Pauly Sosa Consults: 07/26/18 09:44 Consult Physician Routine Consulting Provider: Jonathan Soto Consult Reason/Comments: Diverituclitis Do you want consulting provider notified?: Yes Primary care physician: Pauly Sosa [facility] Course: Discharge diagnosis 1. Diverticulitis with leukocytosis. WBC 15.8. Lactic acid 1.9. CT of abdomen and pelvis completed showing inflammatory changes in the sigmoid colon with wall thickening and numerous diverticula. This could be colitis or diverticulitis. There is new free fluid in the pelvis. This chronic low abdominal aortic dissection extending into the right iliac artery appears diminished compared to last exam. There is clearing of the left pleural effusion compared to old exam. Dr. thrasher has been consulted for surgical services. Patient started on Rocephin and Flagyl for IV antibiotics. Cultures have been ordered. Repeat abdominal x-ray obtained showing gastric distention consistent with large and small bowel ileus that is a change compared to old exam there is slight decrease fecal material compared to old exam. Surgical services are following. At this time patient remains nothing by mouth. Repeat chest x-ray completed showing persistent diffuse distention of small bowel and colon. Some of the cecum is measured up to 10 cm now. This degree of distention may repeat a set up her prescription perforation. Findings could represent diastolic: Neck obstruction and severe generalized ileus. No free air seen. Patient did have a bowel movement post x-ray. Patient will underwent barium enema. Per surgical services no obstruction seen at that time. Patient was able to pass more liquid stool post barium enema. Diet has been advanced to regular diet per surgical services. Patient stating much improvement. Continue to monitor closely. Surgical services have cleared patient for discharge 2. Urinary tract infection. Urine culture ordered. Patient currently on Flagyl and Rocephin for IV antibiotics. Urine culture showing no growth 3. History of aortic can mechanical valve replacement. Patient is maintained on Coumadin. INR now 3.7. Patient maintained on home dose of Coumadin. Lovenox DC'd. INR 3.1. Patient received 2 mg of Coumadin tonight. Home dose of Coumadin reordered. We'll continue check PT/INR daily until therapeutic 4. History of essential tremor 5. Acute kidney injury. Creatinine 1.28. This does appear slightly higher than baseline for patient. Creatinine improving to 1.03. 6. History of cardiomyopathy status post biventricular pacemaker placement 7. History of aortic dissection repair in 1998 8. History of CVA and TIA 9. History of proximal atrial fibrillation with cardioversion 10. History of chronic diastolic Heart failure. Maintained on Lasix. 2-D echo completed in March 2015 showing EF of 50-55% 11. Hypokalemia. Continue to replace per protocol 12. Iron deficiency Anemia. Iron studies will be ordered. Patient received IV iron yesterday. We'll see him an additional dose prior to discharge Hospital course This is a 73-year-old female patient who presented to the emergency room with complaints of abdominal pain. Patient states pain started around 9 AM yesterday morning due to her right lower quadrant. Patient reports that it increased throughout the day and patient started to experience nausea and dry heaves. Patient reports last bowel movement was 3 days prior. Patient has past medical history of heart failure, CVA, hyperlipidemia, hypertension, memory impairment, essential tremor, atrial fibrillation with cardioversion, abdominal aortic dissection and repair with CVA postop, cardiac cath, aortic valve replacement with mechanical valve , patient maintained on Coumadin and biventricular pacer placed in August 2014. CT of abdomen and pelvis completed showing inflammatory changes in the sigmoid colon with wall thickening and numerous diverticula. This could be colitis or diverticulitis. There is new free fluid in the pelvis. There is chronic low abdominal aortic dissection extending into the right iliac artery that appears diminished compared to last exam. There is clearing of left pleural effusion compared to old exam. Patient started on Rocephin and Flagyl. Dr. Soto has been consulted for surgical services. This time patient is complaining of some lower abdominal discomfort. Patient denies vomiting at this time. Patient denies any bowel movement or diarrhea. Patient denies chest pain or shortness breath. Patient denies any urinary burning or frequency. Urinary analysis showing positive for leukocyte esterase. Urine culture has been ordered. On 07/27/2018 patient is currently resting in bed. Patient still complaining of some abdominal discomfort. Patient was evaluated surgical service is planning to repeat abdominal x-ray tomorrow. Patient remains nothing by mouth. INR remained subtherapeutic at 1.7. Patient remains on Lovenox 1 mg/kg until INR is therapeutic due to history of mechanical aortic valve replacement. Potassium also a 2.9 will replace per protocol. Patient is nothing by mouth we' ll place with IV at this time. Patient denies chest pain or shortness of breath. Patient denies any urinary burning or frequency. Patient is complaining of some nausea with abdominal discomfort On 07/28/2018 patient is currently resting bed complaining of some abdominal discomfort with nausea. Discussed case with surgical services patient did have bowel movement this afternoon. Repeat abdominal x-ray reviewed per surgical team. At this time patient will remain nothing by mouth. No plans for surgical intervention at this time due to patient having bowel movement. Patient denies chest pain or shortness of breath. Patient denies nausea vomiting or diarrhea. INR remained subtherapeutic at 1.8. Continue Lovenox 100 twice a day and Coumadin until therapeutic. On 07/29/2018 patient is alert and oriented 3 resting in bed. Patient still complaining of abdominal discomfort. Repeat x-ray of abdomen taken this a.m. to be assessed per surgical services. Patient did have bowel movement yesterday. Patient remains Coumadin and Lovenox aortic mechanical valve. This time patient denies chest pain or shortness breath. Patient denies nausea vomiting or diarrhea. Patient denies any urinary burning or frequency. Awaiting surgical services for further plan of care On 07/30/2018 patient is alert and oriented 3 resting in bed. Patient underwent barium enema with Dr. thrasher yesterday. Per surgical services no obstruction seen at that time patient was able to pass with stool at the barium enema this time per surgical services continue to keep patient nothing by mouth no need for urgent surgical intervention. This time patient is still complaining of some abdominal discomfort. Abdominal distention does appear improved. Patient denies any nausea. Patient denies chest pain or shortness of breath. Patient denies any burning or frequency. On 07/31/2018 patient is seen and examined on the medical floor, she is alert and oriented in no distress, she is feeling better, she had 7 bowel movements yesterday, and her abdomen is less distended and nontender at this time. There is no fever or chills no headache or dizziness no chest pain no shortness of breath no cough no nausea or vomiting no abdominal pain no diarrhea and no urinary symptoms. On 08/01/2018 patient is alert and oriented 3. Patient states she is feeling better. Patient continuing to multiple bowel movements. Patient is less distended. Patient maintained on clear liquid diets per surgical team. Patient does reports she had one episode of emesis this AM. At this time patient denies chest pain or shortness breath. Patient denies nausea vomiting or diarrhea. Patient denies any urinary burning or frequency On 08/02/2018 patient is alert and oriented 3. Patient states significant improvement with abdominal discomfort and distention. Patient is having bowel movements. Patient has been tolerating diet. Patient denies nausea or vomiting. Patient denies chest pain or shortness breath. Patient denies any urinary burning or frequency. On 08/03/2018 patient is alert and oriented 3. Patient has improvement with abdominal discomfort. Patient has been passing stool. Patient denies nausea or vomiting. Patient denies any chest pain or shortness breath. Patient denies any urinary burning or frequency Patient will be transferred to [facility] facility for rehab. Patient will be followed by Dr. Dr. Sosa. We'll continue to monitor CMP, CBC and PT/INR closely I performed an examination of the patient and discussed their management with the Nurse Practitioner. I have reviewed the Nurse Practitioner's notes and agree with the documented findings and plan of care Patient Condition at Discharge: Stable Plan - Discharge Summary Discharge Rx Participant: No New Discharge Prescriptions: New Mag Hydrox/Al Hydrox/Simeth [Maalox] 30 ml PO Q4HR PRN cup PRN Reason: Gi Upset Pantoprazole [Protonix] 40 mg PO DAILY tablet. Continue Pravastatin Sodium [Pravachol] 20 mg PO HS Furosemide [Lasix] 80 mg PO QAM Furosemide [Lasix] 40 mg PO DAILY@1400 Warfarin Sodium [Coumadin] 2 mg PO MOTUWETHFRSA Aspirin EC [Ecotrin Low Dose] 81 mg PO DAILY Amiodarone [Cordarone] 100 mg PO DAILY Warfarin Sodium [Coumadin] 4 mg PO MASTERS Carvedilol [Coreg] 25 mg PO BID HYDROcodone/APAP 7.5-325MG [[place] 7.5-325] 1 tab PO Q8H PRN 3 Days #9 tab PRN Reason: Pain Discontinued amLODIPine [Norvasc] 5 mg PO DAILY Discharge Medication List Pravastatin Sodium [Pravachol] 20 mg PO HS 04/17/15 [History] Amiodarone [Cordarone] 100 mg PO DAILY 07/25/18 [History] Aspirin EC [Ecotrin Low Dose] 81 mg PO DAILY 07/25/18 [History] Carvedilol [Coreg] 25 mg PO BID 07/25/18 [History] Furosemide [Lasix] 40 mg PO DAILY@1400 07/25/18 [History] Furosemide [Lasix] 80 mg PO QAM 07/25/18 [History] Warfarin Sodium [Coumadin] 2 mg PO MOTUWETHFRSA 07/25/18 [History] Warfarin Sodium [Coumadin] 4 mg PO MASTERS 07/25/18 [History] HYDROcodone/APAP 7.5-325MG [[place] 7.5-325] 1 tab PO Q8H PRN 3 Days #9 tab [Rx] Mag Hydrox/Al Hydrox/Simeth [Maalox] 30 ml PO Q4HR PRN cup 08/03/18 [Rx] Pantoprazole [Protonix] 40 mg PO DAILY tablet. 08/03/18 [Rx] Follow up Appointment(s)/Referral(s): [facility] [NON-STAFF] - Pauly Sosa MD [Primary Care Provider] - 1-2 days Ambulatory/Diagnostic Orders: Comprehensive Metabolic Panel [LAB.AMB] Time Frame: 2 Days, Location: None Selected Magnesium [LAB.AMB] Time Frame: 2 Days, Location: None Selected Prothrombin Time INR [LAB.AMB] Time Frame: 1 Day, Location: None Selected Activity/Diet/Wound Care/Special Instructions: Activity as tolerated Diet regular Please check PT/INR daily until maintained therapeutic PT/INR, CBC, mag and CMP for 2 days Discharge Disposition: TRANSFER TO SNF/ECF
[2018-08-03] MEDS: POTASSIUM CHLORIDE ER 20 MEQ TAB.ER PO SCH ×2 (14:39→15:30)
[2018-08-03] MEDS ORDERED: SODIUM FERRIC GLUCONAT-SUCROSE 125 MG in SODIUM CHLORIDE 0.9% 100 ML IVPB ONE (15:00)
[2018-08-03 15:58] VITALS: BP 176/61; PULSE 65; TEMP 97.9
[2018-08-03] MEDS ORDERED: WARFARIN 2.5 MG TAB PO ONE (18:00)
== END 2018-08-03 18:16 | DRG 388 ==
LOC: EC 19:17 → 4MS4W 22:39 → INTOOBSV 22:39 → OBSVTOIN 07-27 10:36
PROVIDERS: ADMIT Internal Medicine; ATTEND Internal Medicine
DX: K56.7 Ileus, unspecified (principal); I71.02 Dissection of abdominal aorta; K57.32 Diverticulitis of large intestine without perforation or abscess without bleeding; N39.0 Urinary tract infection, site not specified; N17.9 Acute kidney failure, unspecified; I42.9 Cardiomyopathy, unspecified; I69.954 Hemiplegia and hemiparesis following unspecified cerebrovascular disease affecting left non-dominant side; I50.32 Chronic diastolic (congestive) heart failure; I11.0 Hypertensive heart disease with heart failure; I69.911 Memory deficit following unspecified cerebrovascular disease; E21.3 Hyperparathyroidism, unspecified; E87.6 Hypokalemia; D50.9 Iron deficiency anemia, unspecified; E78.5 Hyperlipidemia, unspecified; R40.2362 Coma scale, best motor response, obeys commands, at arrival to emergency department; R40.2142 Coma scale, eyes open, spontaneous, at arrival to emergency department; R40.2252 Coma scale, best verbal response, oriented, at arrival to emergency department; G25.0 Essential tremor; M19.90 Unspecified osteoarthritis, unspecified site; Z79.82 Long term (current) use of aspirin; Z79.01 Long term (current) use of anticoagulants; Z79.899 Other long term (current) drug therapy; Z95.2 Presence of prosthetic heart valve; Z95.828 Presence of other vascular implants and grafts; Z95.0 Presence of cardiac pacemaker; Z86.79 Personal history of other diseases of the circulatory system; Z87.442 Personal history of urinary calculi; Z82.49 Family history of ischemic heart disease and other diseases of the circulatory system; Z83.1 Family history of other infectious and parasitic diseases; Z88.0 Allergy status to penicillin; Z88.8 Allergy status to other drugs, medicaments and biological substances; K52.9 Noninfective gastroenteritis and colitis, unspecified
CPT/HCPCS: 36415; 74019; 74021; 74177; 74270; 80053; 81001; 82150; 82728; 83540; 83550; 83605; 83690; 84132; 85025; 85610; 85730; 87040; 87086; 93005; 96361; 96365; 96375; 99285

== ENCOUNTER 2019-03-28 15:02 | Inpatient (IN) | payer MEDICARE ==
[2019-03-28] MEDS ORDERED: IPRATROPIUM-ALBUTEROL 3 ML NEB INHALATION STA (15:21)
[2019-03-28] MEDS ORDERED: SODIUM CHLORIDE 0.9% 500 ML 500 ML IV STA (15:21)
--- NOTE | 2019-03-28 15:24 | ED ---
General Adult HPI - General Chief complaint: Shortness of Breath Stated complaint: GERA Time Seen by Provider: 03/28/19 15:12 Source: patient, EMS, RN notes reviewed, old records reviewed Mode of arrival: EMS Limitations: no limitations - History of Present Illness Initial comments: 73-year-old female patient past history significant for congestive heart fa ilure, hypertension, hyperlipidemia, memory impairment, status post aortic aneurysm repair presents to ED with complaint of 2 days of exertional shortness of breath, worsening lower extremity edema. Patient also reports that she does have a pain in her right shoulder blade region chest ongoing for 2 days. Denies any anterior chest pain. Reports a waxing and waning nausea. Denies all other complaints at this time. Systemic: Pt denies fatigue, fever/chills, rash. Pt denies weakness, night swe ats, weight loss. Neuro: Pt denies headache, visual disturbances, syncope or pre-syncope. HEENT: Pt denies ocular discharge or irritation, otalgia, rhinorrhea, pharyngitis or notable lymphadenopathy. Cardiopulmonary: Pt denies chest pain, heart palpitations, dyspnea on exertion. Abdominal/GI: Pt denies abdominal pain, n/v/d. : Pt denies dysuria, burning w/ urination, frequency/urgency. Denies new onset urinary or bowel incontinence. MSK: Pt denies myalgia, loss of strength or function in extremities. Neuro: Pt denies new onset weakness, paresthesias. - Related Data Home Medications Medication Instructions Recorded Confirmed Pravastatin Sodium [Pravachol] 20 mg PO HS 04/17/15 03/28/19 Amiodarone [Cordarone] 100 mg PO DAILY 07/25/18 03/28/19 Aspirin EC [Ecotrin Low Dose] 81 mg PO DAILY 07/25/18 03/28/19 Furosemide [Lasix] 40 mg PO DAILY@1400 07/25/18 03/28/19 Furosemide [Lasix] 80 mg PO QAM 07/25/18 03/28/19 Warfarin Sodium [Coumadin] 4 mg PO MO 07/25/18 03/28/19 Carvedilol [Coreg] 12.5 mg PO BID 03/28/19 03/28/19 Docusate Sodium [Dok] 100 mg PO DAILY 03/28/19 03/28/19 Ergocalciferol (Vitamin D2) 50,000 unit PO WE 03/28/19 03/28/19 [Drisdol] Warfarin Sodium [Coumadin] 3 mg PO SUTUWETHFRSA 03/28/19 03/28/19 amLODIPine [Norvasc] 5 mg PO DAILY 03/28/19 03/28/19 Previous Rx's Medication Instructions Recorded Pantoprazole [Protonix] 40 mg PO DAILY tablet. 08/03/18 Allergies Allergy/AdvReac Type Severity Reaction Status Date / Time amoxicillin AdvReac Nausea & Verified 03/28/19 16:05 Vomiting & Diarrhea Penicillins AdvReac Nausea & Verified 03/28/19 16:05 Vomiting & Diarrhea VITAMIN K Allergy Anaphylaxis Uncoded 03/28/19 15:11 Review of Systems ROS Statement: Those systems with pertinent positive or pertinent negative responses have been documented in the HPI. ROS Other: All systems not noted in ROS Statement are negative. 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 Diverticulitis History of Any Multi-Drug Resistant Organisms: None Reported Past Surgical History: Back Surgery, Heart Catheterization, Pacemaker Additional Past Surgical History / Comment(s): 1998 aortic disection repair, three aneurysm ascending and descending aorta, aortic valve replacement(MECHANICAL VALVE), CYST AT END OF SPINE REMOVED. CARDIAC CATHETERIZATION WHICH WAS NORMAL. biventricular pacer placed in 08/2014 - pacer is on right side of chest - physician unable to get into left Past Anesthesia/Blood Transfusion Reactions: No Reported Reaction Type of Cardiac Device: Biventricular Pacemaker Device Placement Date:: 08/2014 Past Psychological History: No Psychological Hx Reported Smoking Status: Never smoker Past Alcohol Use History: None Reported Past Drug Use History: None Reported - Past Family History Father History Unknown: Yes Family Medical History: AFIB, Congestive Heart Failure (CHF) Additional Family Medical History / Comment(s): FATHER AT AGE 73 OF CHF. Mother History Unknown: Yes Additional Family Medical History / Comment(s): MOTHER AT AGE 78 OF SEPTIC SHOCK UNKNOWN SOURCE. General Exam - General Exam Comments Initial Comments: Constitutional: NAD, AOX3, Pt has pleasant affect. HEENT: NC/AT, trachea midline, neck supple, no lymphadenopathy. Posterior pharynx non erythematous, without exudates. External ears appear normal, without discharge. Mucous membranes moist. Eyes PERRLA, EOM intact. There is no scleral icterus. No pallor noted. Cardiopulmonary: RRR, no murmurs, rubs or gallops, no JVD noted. Mild crackles noted in left lower lung field. +2 peripheal edema. Abdominal exam: Abdomen soft and non-distended. Abdomen non-tender to palpation in all 4 quadrants. Bowel sounds active in LLQ. No hepatosplenomegaly. No ecchymosis Neuro: CN II-XII grossly intact. No nuchal rigidity. No raccon eyes, no castellon sign, no hemotympanum. No cervical spinal tenderness. MSK: No posterior calf tenderness bilaterally, homans sign negative bilaterally. Posterior tibialis and radial pulse +2 bilaterally. Sensation intact in upper and lower extremities. Full active ROM in upper and lower extremities, 5/5 stregnth. Limitations: no limitations Course Vital Signs 03/28/19 03/28/19 03/28/19 15:02 15:29 15:42 Temperature 97.5 F L Pulse Rate 80 91 Respiratory 16 18 Rate Blood Pressure 124/98 O2 Sat by Pulse 92 L Oximetry 03/28/19 15:52 Temperature Pulse Rate 93 Respiratory Rate Blood Pressure O2 Sat by Pulse Oximetry Medical Decision Making - Medical Decision Making 73-year-old female patient past history significant for congestive heart failure, hypertension, hyperlipidemia, memory impairment, status post aortic aneurysm repair presents to ED with complaint of 2 days of exertional shortness of breath, worsening lower extremity edema. Patient also reports that she does have a pain in her right shoulder blade region chest ongoing for 2 days. Denies any anterior chest pain. Reports a waxing and waning nausea. Denies all other complaints at this time. Patient vital signs displayed a room air pulse ox duration 92% otherwise stable. Physical exam displayed +2 peripheral edema bilaterally. Mild crackles noted in base of left lung. Investigations revealed a mildly elevated troponin in the context of chronic HEENT disease, mildly elevated BNP and calcium, otherwise noncompressive. Chest x-ray revealed pulmonary risk or congestion without overt heart failure at this time, partial hernia. EKG revealed paced rhythm. Patient will be admitted for seizure exacerbation. Case discussed with Dr. Calderon. - Lab Data Result diagrams: 03/28/19 15:21 03/28/19 15:21 Lab Results 03/28/19 03/28/19 03/28/19 Range/Units 15:21 15:21 15:21 WBC 5.2 (3.8-10.6) k/uL RBC 4.23 (3.80-5.40) m/uL Hgb 11.7 (11.4-16.0) gm/dL Hct 35.4 (34.0-46.0) % MCV 83.8 (80.0-100.0) fL MCH 27.6 (25.0-35.0) pg MCHC 33.0 (31.0-37.0) g/dL RDW 15.1 (11.5-15.5) % Plt Count 199 (150-450) k/uL Neutrophils % 67 % Lymphocytes % 20 % Monocytes % 6 % Eosinophils % 5 % Basophils % 1 % Neutrophils # 3.5 (1.3-7.7) k/uL Lymphocytes # 1.0 (1.0-4.8) k/uL Monocytes # 0.3 (0-1.0) k/uL Eosinophils # 0.2 (0-0.7) k/uL Basophils # 0.0 (0-0.2) k/uL Hypochromasia Slight PT (9.0-12.0) sec INR (<1.2) APTT (22.0-30.0) sec Sodium 142 (137-145) mmol/L Potassium 3.9 (3.5-5.1) mmol/L Chloride 108 H (98-107) mmol/L Carbon Dioxide 25 (22-30) mmol/L Anion Gap 9 mmol/L BUN 22 H (7-17) mg/dL Creatinine 1.18 H (0.52-1.04) mg/dL Est GFR (CKD-EPI)AfAm 53 (>60 ml/min/1.73 sqM) Est GFR (CKD-EPI)NonAf 46 (>60 ml/min/1.73 sqM) Glucose 102 H (74-99) mg/dL Calcium 12.2 H (8.4-10.2) mg/dL Magnesium 2.3 (1.6-2.3) mg/dL Total Bilirubin 0.4 (0.2-1.3) mg/dL AST 21 (14-36) U/L ALT 19 (9-52) U/L Alkaline Phosphatase 85 (38-126) U/L Troponin I (0.000-0.034) ng/mL NT-Pro-B Natriuret Pep 1560 pg/mL Total Protein 7.8 (6.3-8.2) g/dL Albumin 3.8 (3.5-5.0) g/dL 03/28/19 03/28/19 Range/Units 15:21 15:21 WBC (3.8-10.6) k/uL RBC (3.80-5.40) m/uL Hgb (11.4-16.0) gm/dL Hct (34.0-46.0) % MCV (80.0-100.0) fL MCH (25.0-35.0) pg MCHC (31.0-37.0) g/dL RDW (11.5-15.5) % Plt Count (150-450) k/uL Neutrophils % % Lymphocytes % % Monocytes % % Eosinophils % % Basophils % % Neutrophils # (1.3-7.7) k/uL Lymphocytes # (1.0-4.8) k/uL Monocytes # (0-1.0) k/uL Eosinophils # (0-0.7) k/uL Basophils # (0-0.2) k/uL Hypochromasia PT 10.2 (9.0-12.0) sec INR 0.9 (<1.2) APTT 22.2 (22.0-30.0) sec Sodium (137-145) mmol/L Potassium (3.5-5.1) mmol/L Chloride (98-107) mmol/L Carbon Dioxide (22-30) mmol/L Anion Gap mmol/L BUN (7-17) mg/dL Creatinine (0.52-1.04) mg/dL Est GFR (CKD-EPI)AfAm (>60 ml/min/1.73 sqM) Est GFR (CKD-EPI)NonAf (>60 ml/min/1.73 sqM) Glucose (74-99) mg/dL Calcium (8.4-10.2) mg/dL Magnesium (1.6-2.3) mg/dL Total Bilirubin (0.2-1.3) mg/dL AST (14-36) U/L ALT (9-52) U/L Alkaline Phosphatase (38-126) U/L Troponin I 0.035 H* (0.000-0.034) ng/mL NT-Pro-B Natriuret Pep pg/mL Total Protein (6.3-8.2) g/dL Albumin (3.5-5.0) g/dL - EKG Data -: EKG Interpreted by Me (and Dr. Calderon ) EKG Comments: Preliminary 94, painful and 54, curious 24, QTC is QTC 48/510. Appearance of paced rhythm. Disposition Clinical Impression: CHF exacerbation Disposition: ADMITTED IP TO THIS HOSP Condition: Serious Is patient prescribed a controlled substance at d/c from ED?: No Referrals: Pauly Sosa MD [Primary Care Provider] - 1-2 days
[2019-03-28 15:43] LABS: Basophils % (A) 1 %; Eosinophils # (A) 0.2 k/uL (0-0.7); Eosinophils % (A) 5 %; HCT 35.4 % (34.0-46.0); HGB 11.7 gm/dL (11.4-16.0); Hypochromasia Slight; Lymphocytes % (A) 20 %; MCH 27.6 pg (25.0-35.0); MCV 83.8 fL (80.0-100.0); Mean Platelet Volume 7.1; Monocytes # (A) 0.3 k/uL (0-1.0); Monocytes % (A) 6 %; Neutrophils # (A) 3.5 k/uL (1.3-7.7); Neutrophils % (A) 67 %; Platelet Count 199 k/uL (150-450); RBC 4.23 m/uL (3.80-5.40); RDW 15.1 % (11.5-15.5); WBC 5.2 k/uL (3.8-10.6)
[2019-03-28 15:58] LABS: Albumin 3.8 g/dL (3.5-5.0); Calcium 12.2 mg/dL (8.4-10.2); Magnesium 2.3 mg/dL (1.6-2.3); Potassium 3.9 mmol/L (3.5-5.1); Total Bilirubin 0.4 mg/dL (0.2-1.3); Total Protein 7.8 g/dL (6.3-8.2)
--- NOTE | 2019-03-28 16:16 | XR ---
EXAMINATION TYPE: XR chest 2V DATE OF EXAM: 03/28/2019 COMPARISON: 12/09/2017 HISTORY: Shortness of breath TECHNIQUE: Frontal and lateral views of the chest are obtained. FINDINGS: Scattered senescent parenchymal changes noted. Hyperinflation compatible with COPD. No evidence for infiltrate. No evidence for atelectasis. Heart size is stable. Mediastinal structures are stable and grossly unremarkable. No evidence for hilar prominence. Degenerative changes dorsal spine. IMPRESSION: 1. Pulmonary venous congestion without overt failure at this time. Hiatal hernia.
[2019-03-28 16:23] LABS: INR 0.9 (<1.2); Partial Thromboplastin Time 22.2 sec (22.0-30.0); Prothrombin Time 10.2 sec (9.0-12.0)
[2019-03-28] MEDS ORDERED: FUROSEMIDE 10 MG/ML 10 ML VIAL IV STA (17:04)
[2019-03-28] MEDS ORDERED: WARFARIN 3 MG TAB PO SCH ×2 (22:45)
[2019-03-28] MEDS: PRAVASTATIN SODIUM 20 MG TAB PO SCH (23:30)
[2019-03-29 06:11] LABS: Basophils % (A) 0 %; Eosinophils # (A) 0.2 k/uL (0-0.7); Eosinophils % (A) 5 %; HCT 32.1 % (34.0-46.0); HGB 10.4 gm/dL (11.4-16.0); Hypochromasia Slight; Lymphocytes # (A) 0.8 k/uL (1.0-4.8); Lymphocytes % (A) 19 %; MCH 28.6 pg (25.0-35.0); MCHC 32.3 g/dL (31.0-37.0); MCV 88.3 fL (80.0-100.0); Monocytes # (A) 0.3 k/uL (0-1.0); Monocytes % (A) 7 %; Neutrophils # (A) 2.8 k/uL (1.3-7.7); Neutrophils % (A) 66 %; Platelet Count 162 k/uL (150-450); RBC 3.63 m/uL (3.80-5.40); RDW 15.6 % (11.5-15.5); WBC 4.3 k/uL (3.8-10.6)
[2019-03-29 06:28] LABS: Prothrombin Time 10.4 sec (9.0-12.0)
[2019-03-29] MEDS: CARVEDILOL 12.5 MG TAB PO SCH ×2 (06:31→17:05)
[2019-03-29 06:38] LABS: Calcium 11.5 mg/dL (8.4-10.2); Potassium 3.7 mmol/L (3.5-5.1); Total Bilirubin 0.4 mg/dL (0.2-1.3); Total Protein 6.4 g/dL (6.3-8.2)
[2019-03-29] MEDS: PANTOPRAZOLE 40 MG TABLET PO SCH (08:24)
[2019-03-29] MEDS: amLODIPine 5 MG TAB PO SCH (08:24)
[2019-03-29] MEDS: AMIODARONE 100 MG TAB PO SCH (08:24)
[2019-03-29] MEDS: DOCUSATE 100 MG CAP PO SCH (08:24)
[2019-03-29] MEDS: ASPIRIN 81 MG PO SCH (08:25)
[2019-03-29] MEDS: FUROSEMIDE 10 MG/ML 4 ML VIAL IV SCH ×3 (08:25→20:07)
[2019-03-29] MEDS: ACETAMINOPHEN TAB 325 MG TAB PO PRN ×3 (08:27→20:06)
[2019-03-29] MEDS ORDERED: ERGOCALCIFEROL 50,000 UNIT CAP PO SCH (09:00)
[2019-03-29] MEDS: ENOXAPARIN 100 MG/ML SYRINGE SQ SCH ×2 (09:23→20:08)
--- NOTE | 2019-03-29 11:33 | P.HPIM ---
History of Present Illness H&P Date: 03/29/19 Chief Complaint: Shortness of breath This is 73-year-old female patient who presented to ER with complaints of increasing shortness of breath. Patient reports that the shortness of breath has been occurring for the past 2 days. She also reports worsening lower extremity edema. Patient also reports that she's had right shoulder blade pain been ongoing for 2 days. Patient does have a past medical history of congestive heart failure, CVA, hyperlipidemia, hypertension, memory impairment, essential tremor, diverticulitis, aortic dissection repair 1998 aortic valve replacement which is mechanical valve in which she is maintained on Coumadin and biventricular pacemaker. Chest x-ray completed showing pulmonary venous congestion with out overt failure at this time. Hital hernia. EKG completed showing sinus rhythm with marked sinus arrhythmia. BNP 1560. Troponin 0.035, 0.536 and 0.937. Cardiology services have been consulted. Patient started on IV Lasix. Patient's INR therapeutic at 1.0 will bridge patient with Lovenox. Patient's creatinine slightly elevated at 1.23) 20 we'll continue to monitor. At this time patient denies chest pain or shortness breath. Patient denies nausea vomiting or diarrhea. Patient denies any urinary burning or frequency. Review of Systems please refer to HPI otherwise unremarkable Past Medical History Past Medical History: Atrial Fibrillation, Heart Failure, CVA/TIA, Hyperlipidemia, Hypertension, Memory Impairment Additional Past Medical History / Comment(s): essential tremor, PAST HX AFIB BUT WAS CARDIOVERTED, KIDNEY STONE,ARTHRITIS,abdominal aortic dissection and repair WITH CVA POST OP WHICH HAS AFFECTED MEMORY SLIGHTLY and left patient with residual slight left sided weakness, chronic anemia, thoracic and abdominal a ortic aneurysm, hypercalcemia and hyperparathyroidism WHICH SHE CURRENTLY TEST NORMAL FOR. Diverticulitis History of Any Multi-Drug Resistant Organisms: None Reported Past Surgical History: Back Surgery, Heart Catheterization, Pacemaker Additional Past Surgical History / Comment(s): 1998 aortic disection repair, three aneurysm ascending and descending aorta, aortic valve replacement(MECHANICAL VALVE), CYST AT END OF SPINE REMOVED. CARDIAC CATHETERIZATION WHICH WAS NORMAL. biventricular pacer placed in 08/2014 - pacer is on right side of chest - physician unable to get into left Past Anesthesia/Blood Transfusion Reactions: No Reported Reaction Type of Cardiac Device: Biventricular Pacemaker Device Placement Date:: 08/2014 Past Psychological History: No Psychological Hx Reported Additional Psychological History / Comment(s): PT LIVES ALONE AT [facility] ([facility] SHE DOES NOT HAVE A CAR BUT DOES HAVE A VALID LICENSE. SHE GETS TO [facility] BY PUBLIC TRANSPORTATION OR AN UNCLE SOMETIMES HELS OUT. PT IS SELF SUFFICIENT AT HOME. Smoking Status: Never smoker Past Alcohol Use History: None Reported Past Drug Use History: None Reported - Past Family History Father History Unknown: Yes Family Medical History: AFIB, Congestive Heart Failure (CHF) Additional Family Medical History / Comment(s): FATHER AT AGE 73 OF CHF. Mother History Unknown: Yes Additional Family Medical History / Comment(s): MOTHER AT AGE 78 OF SEPTIC SHOCK UNKNOWN SOURCE. Medications and Allergies Home Medications Medication Instructions Recorded Confirmed Type Pravastatin Sodium [Pravachol] 20 mg PO HS 04/17/15 03/28/19 History Amiodarone [Cordarone] 100 mg PO DAILY 07/25/18 03/28/19 History Aspirin EC [Ecotrin Low Dose] 81 mg PO DAILY 07/25/18 03/28/19 History Furosemide [Lasix] 40 mg PO DAILY@1400 07/25/18 03/28/19 History Furosemide [Lasix] 80 mg PO QAM 07/25/18 03/28/19 History Warfarin Sodium [Coumadin] 4 mg PO MO 07/25/18 03/28/19 History Pantoprazole [Protonix] 40 mg PO DAILY tablet. 08/03/18 03/28/19 Rx Carvedilol [Coreg] 12.5 mg PO BID 03/28/19 03/28/19 History Docusate Sodium [Dok] 100 mg PO DAILY 03/28/19 03/28/19 History Ergocalciferol (Vitamin D2) 50,000 unit PO WE 03/28/19 03/28/19 History [Drisdol] Warfarin Sodium [Coumadin] 3 mg PO SUTUWETHFRSA 03/28/19 03/28/19 History amLODIPine [Norvasc] 5 mg PO DAILY 03/28/19 03/28/19 History Allergies Allergy/AdvReac Type Severity Reaction Status Date / Time amoxicillin AdvReac Nausea & Verified 03/28/19 16:05 Vomiting & Diarrhea Penicillins AdvReac Nausea & Verified 03/28/19 16:05 Vomiting & Diarrhea VITAMIN K Allergy Anaphylaxis Uncoded 03/28/19 15:11 Physical Exam Vitals: Vital Signs Temp Pulse Pulse Resp BP BP Pulse Ox 03/29/19 08:00 98.4 F 67 18 127/55 91 L 03/29/19 07:50 97 03/29/19 03:32 98.8 F 81 18 145/48 92 L 03/28/19 23:30 76 15 122/56 95 03/28/19 20:15 163/76 03/28/19 19:44 98.9 F 90 16 173/70 95 03/28/19 19:17 97.5 F L 98 16 154/97 96 03/28/19 17:00 101 H 18 133/50 99 03/28/19 16:30 95 17 132/53 99 03/28/19 16:00 146/68 03/28/19 15:52 93 03/28/19 15:42 91 03/28/19 15:29 18 03/28/19 15:06 49 H 124/98 90 L 03/28/19 15:02 97.5 F L 80 16 124/98 92 L Intake and Output 03/28/19 03/29/19 03/29/19 22:59 06:59 14:59 Intake Total 0 Output Total 1000 1800 500 Balance -1000 -1800 -500 Intake: Oral 0 Output: Urine 1000 1800 500 Other: Voiding Method Toilet Toilet Toilet # Voids 4 1 Weight 95.254 kg 92 kg 92 kg Head normocephalic Neck supple Lungs clear to auscultation bilaterally no wheezing or crackles Heart biventricular paced, mitral valve mechanical valve Abdomen is soft nontender nondistended positive bowel sounds no hepatosp lenomegaly Extremities Neuro alert an+2 bilateral lower extremity edemad orientated to 3 Results CBC & Chem 7: 03/29/19 05:50 03/29/19 05:50 Labs: Abnormal Lab Results - Last 24 Hours (Table) 03/28/19 03/28/19 03/28/19 Range/Units 15:21 15:21 22:46 RBC (3.80-5.40) m/uL Hgb (11.4-16.0) gm/dL Hct (34.0-46.0) % RDW (11.5-15.5) % Lymphocytes # (1.0-4.8) k/uL Chloride 108 H (98-107) mmol/L BUN 22 H (7-17) mg/dL Creatinine 1.18 H (0.52-1.04) mg/dL Glucose 102 H (74-99) mg/dL Calcium 12.2 H (8.4-10.2) mg/dL Troponin I 0.035 H* 0.536 H* (0.000-0.034) ng/mL Albumin (3.5-5.0) g/dL 03/29/19 03/29/19 03/29/19 Range/Units 05:50 05:50 05:50 RBC 3.63 L (3.80-5.40) m/uL Hgb 10.4 L (11.4-16.0) gm/dL Hct 32.1 L (34.0-46.0) % RDW 15.6 H (11.5-15.5) % Lymphocytes # 0.8 L (1.0-4.8) k/uL Chloride 108 H (98-107) mmol/L BUN 20 H (7-17) mg/dL Creatinine 1.23 H (0.52-1.04) mg/dL Glucose (74-99) mg/dL Calcium 11.5 H (8.4-10.2) mg/dL Troponin I 0.937 H* (0.000-0.034) ng/mL Albumin 3.0 L (3.5-5.0) g/dL Thrombosis Risk Factor Assmnt - Choose All That Apply Any of the Below Risk Factors Present?: Yes Each Factor Represents 1 point: Heart failure (<1month), Obesity (BMI >25), Swollen legs (current) Other Risk Factors: Yes Each Risk Factor Represents 2 Points: Age 61-74 years Other congenital or acquired thrombophilia - If yes, enter type in comment: No Thrombosis Risk Factor Assessment Total Risk Factor Score: 5 Thrombosis Risk Factor Assessment Level: High Risk Assessment and Plan Assessment: 1. Increased shortness of breath likely related to CHF exacerbation. Cardiology services have been consulted. Patient started on IV Lasix. 2. Mildly elevated troponins. Initial troponin 0.03 5.0.56 and 0.937. Cardiology services have been consulted 3. Acute kidney injury. Creatinine 1.23 and 120. We'll continue to monitor 4. History of an aortic valve placement mechanical valve. Patient is maintained on Coumadin. INR 1.0 will bridge with Lovenox until INR is therapeutic. 5. History of cardiomyopathy status post biventricular pacemaker placement 6. History of chronic diastolic congestive heart failure 7. History of proximal atrial fibrillation with previous cardioversion 8. History of essential tremor 9. History of diverticulitis 10. History of CVA and TIA 11. History of aortic dissection repair 1998 12. Iron deficiency anemia DVT prophylaxis Coumadin currently being bridged with Lovenox. GI prophylaxis Protonix PT OT consulted social consulted possible rehab placement Time with Patient: Greater than 30 (Greater than 60% of the total time spent in counseling and coordination of care. I performed an examination of the patient and discussed their management with the Nurse Practitioner. I have reviewed the Nurse Practitioner's notes and agree with the documented findings and plan of care)
--- NOTE | 2019-03-29 15:23 | P.CRDCN ---
History of Present Illness Consult date: 03/29/19 Requesting physician: Pauly Sosa Consult reason: congestive heart failure Chief complaint: Shortness of breath History of present illness: This is a 73-year-old female who follows regularly with Dr. Helton in the office. She has a history of nonischemic cardiomyopathy with prior mitral valve replacement and aortic dissection repair with aortic valve replacement, mechanical valve, at [facility], she also has history of by V pacemaker for her nonischemic cardio myopathy, history of mechanical aortic valve, hypertension, hyperlipidemia, prior CVA, tremors, history of chronic atrial fibrillation, she presents to the hospital with symptoms of a 2 day duration of progressively worsening shortness of breath and lower extremity edema. Chest x-ray on presentation here showed pulmonary venous congestion. EKG showed atrial fibrillation with controlled ventricular response, BNP level 1560, troponin 0.035, 0.53, 0.93. White blood cell count normal, hemoglobin 10.4, platelet count 162. Sodium 141, potassium 3.7, BUN 20, creatinine 1.3. Blood pressure 124/60 with a heart rate of 60, temperature 98.4. was initiated on IV Lasix in the emergency room, she has been diuresing well overall. She does state that her breathing is much improved from admission he re. INR subtherapeutic at 1.0. 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 Diverticulitis History of Any Multi-Drug Resistant Organisms: None Reported Past Surgical History: Back Surgery, Heart Catheterization, Pacemaker Additional Past Surgical History / Comment(s): 1998 aortic disection repair, three aneurysm ascending and descending aorta, aortic valve replac ement(MECHANICAL VALVE), CYST AT END OF SPINE REMOVED. CARDIAC CATHETERIZATION WHICH WAS NORMAL. biventricular pacer placed in 08/2014 - pacer is on right side of chest - physician unable to get into left Past Anesthesia/Blood Transfusion Reactions: No Reported Reaction Type of Cardiac Device: Biventricular Pacemaker Device Placement Date:: 08/2014 Past Psychological History: No Psychological Hx Reported Additional Psychological History / Comment(s): PT LIVES ALONE AT [facility] ([facility]). SHE DOES NOT HAVE A CAR BUT DOES HAVE A VALID LICENSE. SHE GETS TO [facility] BY PUBLIC TRANSPORTATION OR AN UNCLE SOMETIMES HELS OUT. PT IS SELF SUFFICIENT AT HOME. Smoking Status: Never smoker Past Alcohol Use History: None Reported Past Drug Use History: None Reported - Past Family History Father History Unknown: Yes Family Medical History: AFIB, Congestive Heart Failure (CHF) Additional Family Medical History / Comment(s): FATHER AT AGE 73 OF CHF. Mother History Unknown: Yes Additional Family Medical History / Comment(s): MOTHER AT AGE 78 OF SEPTIC SHOCK UNKNOWN SOURCE. Medications and Allergies Home Medications Medication Instructions Recorded Confirmed Type Pravastatin Sodium [Pravachol] 20 mg PO HS 04/17/15 03/28/19 History Amiodarone [Cordarone] 100 mg PO DAILY 07/25/18 03/28/19 History Aspirin EC [Ecotrin Low Dose] 81 mg PO DAILY 07/25/18 03/28/19 History Furosemide [Lasix] 40 mg PO DAILY@1400 07/25/18 03/28/19 History Furosemide [Lasix] 80 mg PO QAM 07/25/18 03/28/19 History Warfarin Sodium [Coumadin] 4 mg PO MO 07/25/18 03/28/19 History Pantoprazole [Protonix] 40 mg PO DAILY tablet. 08/03/18 03/28/19 Rx Carvedilol [Coreg] 12.5 mg PO BID 03/28/19 03/28/19 History Docusate Sodium [Dok] 100 mg PO DAILY 03/28/19 03/28/19 History Ergocalciferol (Vitamin D2) 50,000 unit PO WE 03/28/19 03/28/19 History [Drisdol] Warfarin Sodium [Coumadin] 3 mg PO SUTUWETHFRSA 03/28/19 03/28/19 History amLODIPine [Norvasc] 5 mg PO DAILY 03/28/19 03/28/19 History Allergies Allergy/AdvReac Type Severity Reaction Status Date / Time amoxicillin AdvReac Nausea & Verified 03/28/19 16:05 Vomiting & Diarrhea Penicillins AdvReac Nausea & Verified 03/28/19 16:05 Vomiting & Diarrhea VITAMIN K Allergy Anaphylaxis Uncoded 03/28/19 15:11 Physical Exam Vitals: Vital Signs Temp Pulse Pulse Resp BP BP Pulse Ox 03/29/19 11:15 67 18 124/61 94 L 03/29/19 08:00 98.4 F 67 18 127/55 91 L 03/29/19 07:50 97 03/29/19 03:32 98.8 F 81 18 145/48 92 L 03/28/19 23:30 76 15 122/56 95 03/28/19 20:15 163/76 03/28/19 19:44 98.9 F 90 16 173/70 95 03/28/19 19:17 97.5 F L 98 16 154/97 96 03/28/19 17:00 101 H 18 133/50 99 03/28/19 16:30 95 17 132/53 99 03/28/19 16:00 146/68 03/28/19 15:52 93 03/28/19 15:42 91 03/28/19 15:29 18 03/28/19 15:06 49 H 124/98 90 L 03/28/19 15:02 97.5 F L 80 16 124/98 92 L Intake and Output 03/28/19 03/29/19 03/29/19 22:59 06:59 14:59 Intake Total 0 Output Total 1000 1800 800 Balance -1000 -1800 -800 Intake: Oral 0 Output: Urine 1000 1800 800 Other: Voiding Method Toilet Toilet Toilet # Voids 4 1 Weight 95.254 kg 92 kg 92 kg PHYSICAL EXAMINATION: GENERAL: 73-year-old female in no acute distress at the time of my examination HEENT: Head is atraumatic, normocephalic. Pupils equal, round. Sclera anicteric. Conjunctiva are clear. Mucous membranes of the mouth are moist. Neck is supple. There is no elevated jugular venous pressure.No carotid bruit is heard. HEART EXAMINATION: Heart S1 and S2 irregularly irregular a systolic ejection murmur is heard, aortic valve click is also heard CHEST EXAMINATION: Lungs reveal diminished air entry to bilateral bases. ABDOMEN: Soft, nontender. Bowel sounds are heard. No organomegaly noted. EXTREMITIES: 2+ peripheral pulses with 2+ evidence of peripheral edema and no calf tenderness noted. NEUROLOGIC patient is awake, alert and oriented X 3 . Results 03/29/19 05:50 03/29/19 05:50 Cardiac Enzymes 03/28/19 03/28/19 03/28/19 Range/Units 15:21 15:21 22:46 AST 21 (14-36) U/L Troponin I 0.035 H* 0.536 H* (0.000-0.034) ng/mL 03/29/19 03/29/19 Range/Units 05:50 05:50 AST 22 (14-36) U/L Troponin I 0.937 H* (0.000-0.034) ng/mL Coagulation 03/28/19 03/29/19 Range/Units 15:21 05:50 PT 10.2 10.4 (9.0-12.0) sec APTT 22.2 (22.0-30.0) sec CBC 03/28/19 03/29/19 Range/Units 15:21 05:50 WBC 5.2 4.3 (3.8-10.6) k/uL RBC 4.23 3.63 L (3.80-5.40) m/uL Hgb 11.7 10.4 L (11.4-16.0) gm/dL Hct 35.4 32.1 L (34.0-46.0) % Plt Count 199 162 (150-450) k/uL Comprehensive Metabolic Panel 03/28/19 03/29/19 Range/Units 15:21 05:50 Sodium 142 141 (137-145) mmol/L Potassium 3.9 3.7 (3.5-5.1) mmol/L Chloride 108 H 108 H (98-107) mmol/L Carbon Dioxide 25 30 (22-30) mmol/L BUN 22 H 20 H (7-17) mg/dL Creatinine 1.18 H 1.23 H (0.52-1.04) mg/dL Glucose 102 H 99 (74-99) mg/dL Calcium 12.2 H 11.5 H (8.4-10.2) mg/dL AST 21 22 (14-36) U/L ALT 19 20 (9-52) U/L Alkaline Phosphatase 85 67 (38-126) U/L Total Protein 7.8 6.4 (6.3-8.2) g/dL Albumin 3.8 3.0 L (3.5-5.0) g/dL Current Medications Generic Name Dose Route Start Last Admin Trade Name Freq PRN Reason Stop Dose Admin Acetaminophen 650 mg 03/29/19 08:17 03/29/19 08:27 Tylenol Tab PO 650 mg Q6HR PRN Administration Fever and/ or Pain Amiodarone HCl 100 mg 03/29/19 09:00 03/29/19 08:24 Cordarone PO 100 mg DAILY [place] Administration Amlodipine Besylate 5 mg 03/29/19 09:00 03/29/19 08:24 Norvasc PO 5 mg DAILY [place] Administration Aspirin 81 mg 03/29/19 09:00 03/29/19 08:25 Aspirin PO Not Given DAILY [facility] Carvedilol 12.5 mg 03/29/19 07:30 03/29/19 06:31 Coreg PO 12.5 mg BID-W/MEALS [facility] Administration Docusate Sodium 100 mg 03/29/19 09:00 03/29/19 08:24 Colace PO 100 mg DAILY [facility] Administration Enoxaparin Sodium 90 mg 03/29/19 09:00 03/29/19 09:23 Lovenox SQ 90 mg Q12HR [facility] Administration Ergocalciferol 50,000 unit 03/29/19 09:00 03/29/19 08:24 Vitamin D2 PO 50,000 unit We@0900 [facility] Administration Furosemide 40 mg 03/29/19 08:00 03/29/19 08:31 Lasix IV Not Given Q12HR [facility] Pantoprazole Sodium 40 mg 03/29/19 09:00 03/29/19 08:24 Protonix PO 40 mg DAILY [facility] Administration Pravastatin Sodium 20 mg 03/28/19 22:30 03/28/19 23:30 Pravachol PO 20 mg HS [facility] Administration Warfarin Sodium 4 mg 04/03/19 18:00 Coumadin PO Mo@1800 [facility] Warfarin Sodium 3 mg 03/28/19 22:45 Coumadin PO SuTuWeThFrSa@1800 [facility] Intake and Output 03/28/19 03/29/19 03/29/19 22:59 06:59 14:59 Intake Total 0 Output Total 1000 1800 800 Balance -1000 -1800 -800 Intake: Oral 0 Output: Urine 1000 1800 800 Other: Voiding Method Toilet Toilet Toilet # Voids 4 1 Weight 95.254 kg 92 kg 92 kg Patient Weight 10/03/19 06:59 Weight 92 kg 03/29/19 05:50 03/29/19 05:50 EKG Interpretations (text) EKG shows atrial fibrillation with a controlled ventricular response Assessment and Plan Plan: Assessment and plan #1 diastolic congestive heart failure acute on chronic #2 history of aortic aneurysm repair as well as grafting, mechanical aortic valve with a [facility] #3 history of mitral valve replacement #4 history of IV pacemaker #5 hypertension #6 hyperlipidemia #7 persistent atrial fibrillation #8 history of iron deficiency anemia #9 abnormality in troponin, 0.03, 0.5, 0.9. Cannot completely rule out acute coronary syndrome with underlying coronary artery disease Plan Patient's INR is subtherapeutic, he is currently on Lovenox, we need to maintain an INR in the range of 3-3.5. We will continue IV Lasix, continue to monitor intake and output along with daily weights and daily lytes BUN and creatinine. Repeat echocardiogram with Doppler study. Further recommendations to follow. DNP note has been reviewed, I agree with a documented findings and plan of care. Patient was seen and examined.
[2019-03-29] MEDS: PRAVASTATIN SODIUM 20 MG TAB PO SCH (20:06)
[2019-03-30] MEDS: CARVEDILOL 12.5 MG TAB PO SCH ×2 (06:28→17:11)
[2019-03-30 07:14] LABS: Basophils % (A) 1 %; Eosinophils # (A) 0.3 k/uL (0-0.7); Eosinophils % (A) 8 %; HCT 29.9 % (34.0-46.0); HGB 9.7 gm/dL (11.4-16.0); Hypochromasia Slight; Lymphocytes % (A) 26 %; MCH 27.4 pg (25.0-35.0); MCHC 32.3 g/dL (31.0-37.0); MCV 84.7 fL (80.0-100.0); Mean Platelet Volume 7.4; Monocytes # (A) 0.3 k/uL (0-1.0); Monocytes % (A) 7 %; Neutrophils # (A) 2.1 k/uL (1.3-7.7); Neutrophils % (A) 57 %; Platelet Count 162 k/uL (150-450); RBC 3.53 m/uL (3.80-5.40); RDW 15.1 % (11.5-15.5); WBC 3.7 k/uL (3.8-10.6)
[2019-03-30 07:25] LABS: Calcium 11.3 mg/dL (8.4-10.2); Potassium 3.2 mmol/L (3.5-5.1); Total Bilirubin 0.4 mg/dL (0.2-1.3); Total Protein 6.4 g/dL (6.3-8.2)
[2019-03-30] MEDS ORDERED: Potassium Replacement Protocol 1 EACH MISC MISCELLANE PRN (08:08)
[2019-03-30 09:42] LABS: Prothrombin Time 10.8 sec (9.0-12.0)
[2019-03-30] MEDS: AMIODARONE 100 MG TAB PO SCH (09:51)
[2019-03-30] MEDS: amLODIPine 5 MG TAB PO SCH (09:51)
[2019-03-30] MEDS: ASPIRIN 81 MG PO SCH (09:52)
[2019-03-30] MEDS: ENOXAPARIN 100 MG/ML SYRINGE SQ SCH ×2 (09:52→19:41)
[2019-03-30] MEDS: DOCUSATE 100 MG CAP PO SCH (09:52)
[2019-03-30] MEDS: PANTOPRAZOLE 40 MG TABLET PO SCH (09:53)
[2019-03-30] MEDS: FUROSEMIDE 10 MG/ML 4 ML VIAL IV SCH ×2 (09:53→19:41)
[2019-03-30] MEDS: POTASSIUM CHLORIDE ER 20 MEQ TAB.ER PO SCH ×2 (09:54→10:43)
--- NOTE | 2019-03-30 10:53 | P.PN ---
Subjective Progress Note Date: 03/30/19 This is 73-year-old female patient who presented to ER with complaints of increasing shortness of breath. Patient reports that the shortness of breath has been occurring for the past 2 days. She also reports worsening lower extremity edema. Patient also reports that she's had right shoulder blade pain been ongoing for 2 days. Patient does have a past medical history of congestive heart failure, CVA, hyperlipidemia, hypertension, memory impairment, essential tremor, diverticulitis, aortic dissection repair 1999 aortic valve replacement which is mechanical valve in which she is maintained on Coumadin and biventricular pacemaker. Chest x-ray completed showing pulmonary venous congestion with out overt failure at this time. Hital hernia. EKG completed showing sinus rhythm with marked sinus arrhythmia. BNP 1560. Troponin 0.035, 0.536 and 0.937. Cardiology services have been consulted. Patient started on IV Lasix. Patient's INR subtherapeutic at 1.0 will bridge patient with Lovenox. Patient's creatinine slightly elevated at 1.23) 20 we'll continue to monitor. At this time patient denies chest pain or shortness breath. Patient denies nausea vomiting or diarrhea. Patient denies any urinary burning or frequency. On 03/30/2019 patient's alert and oriented 3. Patient reports improvement with her shortness of breath and right shoulder pain. Patient's INR remains low. Patient is currently on Lovenox 1 mg/kg twice a day until therapeutic INR is achieved. Patient remains on IV Lasix per cardiology services. At this time patient denies chest pain or shortness of breath. Patient denies nausea vomiting or diarrhea. Patient denies urinary burning or frequency Objective - Vital Signs Vital signs: Vital Signs Temp 97.8 F 03/30/19 03:37 Pulse 67 03/30/19 10:12 Resp 18 03/30/19 03:37 BP 139/57 03/30/19 03:37 Pulse Ox 93 L 03/30/19 03:37 Intake & Output 03/29/19 03/30/19 03/30/19 18:59 06:59 18:59 Intake Total 476 600 Output Total 800 950 Balance -324 -950 600 Weight 92 kg 89.6 kg Intake: Oral 476 600 Output: Urine 800 950 Other: Voiding Method Toilet Toilet # Voids 1 1 1 # Bowel Movements 1 - Exam Head normocephalic Neck supple Lungs clear to auscultation bilaterally no wheezing or crackles Heart biventricular paced, mitral valve mechanical valve Abdomen is soft nontender nondistended positive bowel sounds no hepatosplenomegaly Extremities +2 lower extremity edema Neuro alert and orientated to 3 - Labs CBC & Chem 7: 03/30/19 06:33 10 06:33 Labs: Abnormal Lab Results - Last 24 Hours (Table) 03/30/19 03/30/19 Range/Units 06:33 06:33 WBC 3.7 L (3.8-10.6) k/uL RBC 3.53 L (3.80-5.40) m/uL Hgb 9.7 L (11.4-16.0) gm/dL Hct 29.9 L (34.0-46.0) % Potassium 3.2 L (3.5-5.1) mmol/L Carbon Dioxide 32 H (22-30) mmol/L Creatinine 1.05 H (0.52-1.04) mg/dL Glucose 101 H (74-99) mg/dL Calcium 11.3 H (8.4-10.2) mg/dL Albumin 3.0 L (3.5-5.0) g/dL Assessment and Plan Assessment: 1. Increased shortness of breath related to acute on chronic diastolic congestive heart failure Cardiology services have been consulted. Patient started on IV Lasix. The echo has been ordered per cardiology continue daily weight monitoring 2. Abnormality to troponins. Initial troponin 0.03 5.0.56 and 0.937. Per c ardiology cannot completely rule out acute coronary syndrome with underlying coronary artery disease cardiology services are following. 3. Acute kidney injury. Creatinine 1.23 and 120. We'll continue to monitor. Renin improving to 1.05 4. History of an aortic valve placement mechanical valve. Patient is maintained on Coumadin. INR 1.0 will bridge with Lovenox until INR is therapeutic. 5. History of cardiomyopathy status post biventricular pacemaker placement 6. History of chronic diastolic congestive heart failure 7. History of proximal atrial fibrillation with previous cardioversion 8. History of essential tremor 9. History of diverticulitis 10. History of CVA and TIA 11. History of aortic dissection repair 1998 12. Iron deficiency anemia 10. Bilateral lower extremity edema related to CHF exacerbation. Continue Silvadene and Henry wraps. DVT prophylaxis Coumadin currently being bridged with Lovenox. GI prophylaxis Protonix PT OT consulted social consulted possible rehab placement I performed an examination of the patient and discussed their management with the Nurse Practitioner. I have reviewed the Nurse Practitioner's notes and agree with the documented findings and plan of care
--- NOTE | 2019-03-30 15:12 | P.PN ---
Subjective Progress Note Date: 03/30/19 This is a 73-year-old female who follows regularly with Dr. Helton in the office. She has a history of nonischemic cardiomyopathy with prior mitral valve replacement and aortic dissection repair with aortic valve replacement, mechanical valve, at [facility], she also has history of by V pacemaker for her nonischemic cardio myopathy, history of mechanical aortic valve, hypertension, hyperlipidemia, prior CVA, tremors, history of chronic atrial fibrillation, she presents to the hospital with symptoms of a 2 day duration of progressively worsening shortness of breath and lower extremity edema. Chest x-ray on presentation here showed pulmonary venous congestion. EKG showed atrial fibrillation with controlled ventricular response, BNP level 1560, troponin 0.035, 0.53, 0.93. White blood cell count normal, hemoglobin 10.4, platelet count 162. Sodium 141, potassium 3.7, BUN 20, creatinine 1.3. Blood pressure 124/60 with a heart rate of 60, temperature 98.4. was i nitiated on IV Lasix in the emergency room, she has been diuresing well overall. She does state that her breathing is much improved from admission here. INR subtherapeutic at 1.0. 03/30/2019 Patient seen and examined this morning, states that her breathing is improving, she also states that the discomfort in her shoulder is also improving. She continues to be on Lovenox and IV Lasix. INR continues to be 1.0 today. White blood cell count 3.7, hemoglobin 9.7, platelet count 162. Sodium 141, potassium 3.2, BUN 16 and creatinine 1.05. Objective - Vital Signs Vital signs: Vital Signs Temp 97.6 F 03/30/19 12:00 Pulse 63 03/30/19 12:00 Resp 17 03/30/19 12:00 BP 160/45 03/30/19 12:00 Pulse Ox 96 03/30/19 12:00 Intake & Output 03/29/19 03/30/19 03/30/19 18:59 06:59 18:59 Intake Total 476 600 Output Total 800 950 400 Balance -324 -950 200 Weight 92 kg 89.6 kg Intake: Oral 476 600 Output: Urine 800 950 400 Other: Voiding Method Toilet Toilet Toilet # Voids 1 1 1 # Bowel Movements 1 - Exam PHYSICAL EXAMINATION: GENERAL: 73-year-old female in no acute distress at the time of my examination HEENT: Head is atraumatic, normocephalic. Pupils equal, round. Sclera anicteric. Conjunctiva are clear. Mucous membranes of the mouth are moist. Neck is supple. There is no elevated jugular venous pressure.No carotid bruit is heard. HEART EXAMINATION: Heart S1 and S2 irregularly irregular a systolic ejection murmur is heard, aortic valve click is also heard CHEST EXAMINATION: Lungs reveal diminished air entry to bilateral bases. ABDOMEN: Soft, nontender. Bowel sounds are heard. No organomegaly noted. EXTREMITIES: 2+ peripheral pulses with 2+ evidence of peripheral edema and no calf tenderness noted. NEUROLOGIC patient is awake, alert and oriented X 3 - Labs CBC & Chem 7: 03/30/19 06:33 03/30/19 06:33 Labs: Abnormal Lab Results - Last 24 Hours (Table) 03/30/19 03/30/19 Range/Units 06:33 06:33 WBC 3.7 L (3.8-10.6) k/uL RBC 3.53 L (3.80-5.40) m/uL Hgb 9.7 L (11.4-16.0) gm/dL Hct 29.9 L (34.0-46.0) % Potassium 3.2 L (3.5-5.1) mmol/L Carbon Dioxide 32 H (22-30) mmol/L Creatinine 1.05 H (0.52-1.04) mg/dL Glucose 101 H (74-99) mg/dL Calcium 11.3 H (8.4-10.2) mg/dL Albumin 3.0 L (3.5-5.0) g/dL Assessment and Plan Plan: Assessment and plan #1 diastolic congestive heart failure acute on chronic #2 history of aortic aneurysm repair as well as grafting, mechanical aortic valve with a [facility] #3 history of mitral valve replacement #4 history of IV pacemaker #5 hypertension #6 hyperlipidemia #7 persistent atrial fibrillation #8 history of iron deficiency anemia #9 abnormality in troponin, 0.03, 0.5, 0.9. Cannot completely rule out acute coronary syndrome with underlying coronary artery disease Plan Continue Lovenox along with Coumadin to maintain an INR in the range of 3-3.5. Continue current dose of IV Lasix, monitoring intake and output along with daily weights and daily lytes BUN and creatinine. DNP note has been reviewed, I agree with a documented findings and plan of care. Patient was seen and examined.
[2019-03-30] MEDS ORDERED: WARFARIN 10 MG TAB PO ONE (18:00)
[2019-03-30] MEDS: PRAVASTATIN SODIUM 20 MG TAB PO SCH (19:41)
[2019-03-30] MEDS: ACETAMINOPHEN TAB 325 MG TAB PO PRN (23:12)
[2019-03-31 06:01] LABS: INR 1.1 (<1.2); Prothrombin Time 11.4 sec (9.0-12.0)
[2019-03-31 06:05] LABS: Basophils # (A) 0.1 k/uL (0-0.2); Basophils % (A) 1 %; Eosinophils # (A) 0.3 k/uL (0-0.7); Eosinophils % (A) 8 %; HCT 29.2 % (34.0-46.0); HGB 9.1 gm/dL (11.4-16.0); Hypochromasia Moderate; Lymphocytes % (A) 25 %; MCH 27.7 pg (25.0-35.0); MCHC 31.2 g/dL (31.0-37.0); MCV 88.6 fL (80.0-100.0); Mean Platelet Volume 7.4; Monocytes # (A) 0.3 k/uL (0-1.0); Monocytes % (A) 7 %; Neutrophils # (A) 2.2 k/uL (1.3-7.7); Neutrophils % (A) 57 %; Platelet Count 153 k/uL (150-450); RBC 3.29 m/uL (3.80-5.40); RDW 15.2 % (11.5-15.5); WBC 3.9 k/uL (3.8-10.6)
[2019-03-31] MEDS: CARVEDILOL 12.5 MG TAB PO SCH ×2 (06:14→17:14)
[2019-03-31 06:21] LABS: Albumin 2.8 g/dL (3.5-5.0); Calcium 11.2 mg/dL (8.4-10.2); Magnesium 2.1 mg/dL (1.6-2.3); Potassium 3.4 mmol/L (3.5-5.1); Total Bilirubin 0.3 mg/dL (0.2-1.3); Total Protein 6.1 g/dL (6.3-8.2)
[2019-03-31] MEDS: ENOXAPARIN 100 MG/ML SYRINGE SQ SCH ×2 (08:10→20:03)
[2019-03-31] MEDS: AMIODARONE 100 MG TAB PO SCH (08:10)
[2019-03-31] MEDS: amLODIPine 5 MG TAB PO SCH (08:10)
[2019-03-31] MEDS: ASPIRIN 81 MG PO SCH (08:10)
[2019-03-31] MEDS: DOCUSATE 100 MG CAP PO SCH (08:10)
[2019-03-31] MEDS: PANTOPRAZOLE 40 MG TABLET PO SCH (08:11)
[2019-03-31] MEDS: FUROSEMIDE 10 MG/ML 4 ML VIAL IV SCH ×3 (08:11→23:12)
[2019-03-31] MEDS ORDERED: WARFARIN 5 MG TAB PO STA (11:33)
[2019-03-31] MEDS: POTASSIUM CHLORIDE ER 20 MEQ TAB.ER PO SCH ×3 (11:46→15:42)
--- NOTE | 2019-03-31 13:27 | P.PN ---
Subjective Progress Note Date: 03/31/19 This is 73-year-old female patient who presented to ER with complaints of increasing shortness of breath. Patient reports that the shortness of breath has been occurring for the past 2 days. She also reports worsening lower extremity edema. Patient also reports that she's had right shoulder blade pain been ongoing for 2 days. Patient does have a past medical history of congestive heart failure, CVA, hyperlipidemia, hypertension, memory impairment, essential tremor, diverticulitis, aortic dissection repair 1999 aortic valve replacement which is mechanical valve in which she is maintained on Coumadin and biventricular pacemaker. Chest x-ray completed showing pulmonary venous congestion with out overt failure at this time. Hital hernia. EKG completed showing sinus rhythm with marked sinus arrhythmia. BNP 1560. Troponin 0.035, 0.536 and 0.937. Cardiology services have been consulted. Patient started on IV Lasix. Patient's INR subtherapeutic at 1.0 will bridge patient with Lovenox. Patient's creatinine slightly elevated at 1.23) 20 we'll continue to monitor. At this time patient denies chest pain or shortness breath. Patient denies nausea vomiting or diarrhea. Patient denies any urinary burning or frequency. On 03/30/2019 patient's alert and oriented 3. Patient reports improvement with her shortness of breath and right shoulder pain. Patient's INR remains low. Patient is currently on Lovenox 1 mg/kg twice a day until therapeutic INR is achieved. Patient remains on IV Lasix per cardiology services. At this time patient denies chest pain or shortness of breath. Patient denies nausea vomiting or diarrhea. Patient denies urinary burning or frequency 03/31/2019 patient still reporting some shortness of breath and lower extremity edema. She does report symptoms are showing slow improvement. She feels that she is weak and will require rehab. She is working with physical therapy. INR is still low at 1.1. Cardiology is ordered 5 mg now and 5 mg in the evening. She is also bridged with the Lovenox. Influenza screening was negative. Calcium level is elevated 11.2. Parathyroid hormone has been ordered. Hemoglobin is low at 9.1 no active signs of bleeding. Patient does have a known history of iron deficiency anemia. Creatinine is 1.08 potassium is 3.4. Patient does receive potassium supplement per protocol. Objective - Vital Signs Vital signs: Vital Signs Temp 97.8 F 03/31/19 11:52 Pulse 61 03/31/19 12:00 Resp 17 03/31/19 11:52 BP 139/51 03/31/19 11:52 Pulse Ox 97 03/31/19 11:52 Intake & Output 03/30/19 03/31/19 03/31/19 18:59 06:59 18:59 Intake Total 1062 360 Output Total 800 950 900 Balance 262 -950 -540 Weight 88.7 kg Intake: Oral 1062 360 Output: Urine 800 950 900 Other: Voiding Method Toilet Toilet # Voids 1 2 # Bowel Movements 1 - Exam Head normocephalic Neck supple Lungs clear to auscultation bilaterally no wheezing or crackles Heart mechanical valve heart sounds noted Abdomen is soft nontender nondistended positive bowel sounds no hepatosplenomegaly Extremities edema present bilateral lower extremities with Henry wraps Neuro alert and orientated to 3 - Labs CBC & Chem 7: 03/31/19 05:24 03/31/19 05:24 Labs: Abnormal Lab Results - Last 24 Hours (Table) 03/31/19 03/31/19 Range/Units 05:24 05:24 RBC 3.29 L (3.80-5.40) m/uL Hgb 9.1 L (11.4-16.0) gm/dL Hct 29.2 L (34.0-46.0) % Potassium 3.4 L (3.5-5.1) mmol/L Carbon Dioxide 35 H (22-30) mmol/L BUN 19 H (7-17) mg/dL Creatinine 1.08 H (0.52-1.04) mg/dL Glucose 104 H (74-99) mg/dL Calcium 11.2 H (8.4-10.2) mg/dL Total Protein 6.1 L (6.3-8.2) g/dL Albumin 2.8 L (3.5-5.0) g/dL Assessment and Plan Assessment: 1. Increased shortness of breath related to acute on chronic diastolic congestive heart failure exacerbation. Continue IV Lasix. Cardiology is following. Echo pending. continue daily weight monitoring 2. Abnormality to troponins. Initial troponin 0.03 5.0.56 and 0.937. Per cardiology cannot completely rule out acute coronary syndrome with underlying coronary artery disease cardiology services are following. 3. Acute kidney injury. Creatinine 1.23 . Creatinine is now down to 1.08. Low monitor 4. History of an aortic valve placement mechanical valve. Patient is maintained on Coumadin. INR 1.1 will bridge with Lovenox until INR is therape utic. She's receiving a total of 10 mg daily of Coumadin. Repeat PT/INR in a.m. 5. History of cardiomyopathy status post biventricular pacemaker placement 6. History of chronic diastolic congestive heart failure 7. History of proximal atrial fibrillation with previous cardioversion 8. History of essential tremor 9. History of diverticulitis 10. History of CVA and TIA 11. History of aortic dissection repair 1998 12. Iron deficiency anemia. Check iron studies. Patient currently not on iron supplement 13. Bilateral lower extremity edema related to CHF exacerbation. Continue Silvadene and Henry wraps. 14. Hypokalemia: Patient receiving potassium supplement. Repeat labs in a.m. 15. Hypercalcemia: Check parathyroid hormone level. In past records it does appear that patient has history of hypercalcemia and hyperparathyroidism. DVT prophylaxis Coumadin currently being bridged with Lovenox. GI prophylaxis Protonix PT OT consulted social consulted possible rehab placement I performed an examination of the patient and discussed their management with the physician Quantitative Software Engineer. I have reviewed the Physician Quantitative Software Engineer's notes and agree with the documented findings and plan of care
--- NOTE | 2019-03-31 13:58 | ECHOF ---
Referral Reason:sob MEASUREMENTS -------- HEIGHT: 172.7 cm WEIGHT: 89.4 kg BP: 139/57 RVIDd: 4.5 cm (< 3.3) IVSd: 1.7 cm (0.6 - 1.1) LVIDd: 4.7 cm (3.9 - 5.3) LVPWd: 1.9 cm (0.6 - 1.1) IVSs: 1.9 cm LVIDs: 3.7 cm LVPWs: 2.5 cm LAESV Index (A-L): 63.39 ml/m IVSd: 1.8 cm (0.6 - 1.1) LVIDd: 5.0 cm (3.9 - 5.3) LVPWd: 1.8 cm (0.6 - 1.1) IVSs: 2.4 cm LVIDs: 3.5 cm LVPWs: 2.3 cm EDV(Teich): 121 ml ESV(Teich): 49 ml EF(Teich): 59 % %FS: 32 % SV(Teich): 72 ml Ao Diam: 2.8 cm (2.0 - 3.7) AV Cusp: 2.1 cm (1.5 - 2.6) LA Diam: 6.8 cm (2.7 - 3.8) MV EXCURSION: 24.729 mm (> 18.000) MV EF SLOPE: 71 mm/s (70 - 150) EPSS: 0.8 cm MV E Abner: 0.57 m/s MV DecT: 162 ms MV A Abner: 0.80 m/s MV E/A Ratio: 0.71 AV maxP.88 mmHg AV meanP.39 mmHg RAP: 15.00 mmHg RVSP: 54.38 mmHg FINDINGS -------- Sinus rhythm. This was a technically adequate study. The left ventricular size is normal. There is severe concentric left ventricular hypertrophy. Ove rall left ventricular systolic function is mildly impaired with, an EF between 45 - 50 %. Left vent ricular fillimg pressure cannot be estimated due to severe mitral regurgitation. Septal wall motion is delayed and consistent with prior cardiac surgery. The right ventricle is severely enlarged. LA is severely dilated >40 ml/m2 The right atrium is mildly enlarged. Interatrial and interventricular septum intact. There is mild aortic regurgitation. There is moderate aortic stenosis present. Peak/mean gradient across the Aortic Valve is 44.88mmHg / 25.39mmHg. Mechanical AVR is well seated. Moderate mitral regurgitation is present. Moderate tricuspid regurgitation present. There is moderate pulmonary hypertension. The right carmel tricular systolic pressure, as measured by Doppler, is 54.38mmHg. Trace/mild (physiologic) pulmonic regurgitation. The aortic root size is normal. The inferior vena cava is dilated with poor inspiratory collapse which is consistent with estimated r ight atrial pressure of 20 mmHg. There is no pericardial effusion. CONCLUSIONS -------- 1. Sinus rhythm. 2. This was a technically adequate study. 3. The left ventricular size is normal. 4. Overall left ventricular systolic function is mildly impaired with, an EF between 45 - 50 %. 5. Left ventricular fillimg pressure cannot be estimated due to severe mitral regurgitation. 6. Septal wall motion is delayed and consistent with prior cardiac surgery. 7. The right ventricle is severely enlarged. 8. LA is severely dilated >40 ml/m2 9. The right atrium is mildly enlarged. 10. Interatrial and interventricular septum intact. 11. There is mild aortic regurgitation. 12. There is moderate aortic stenosis present. 13. Peak/mean gradient across the Aortic Valve is 44.88mmHg / 25.39mmHg. 14. Mechanical AVR is well seated. 15. Moderate mitral regurgitation is present. 16. Moderate tricuspid regurgitation present. 17. There is moderate pulmonary hypertension. 18. The right ventricular systolic pressure, as measured by Doppler, is 54.38mmHg. 19. Trace/mild (physiologic) pulmonic regurgitation. 20. The aortic root size is normal. 21. The inferior vena cava is dilated with poor inspiratory collapse which is consistent with estimat ed right atrial pressure of 20 mmHg. 22. There is no pericardial effusion. BEHAVIORAL HEALTH COUNSELOR: Stefanie Darling RDCS
[2019-03-31 17:51] LABS: Ferritin 20.6 ng/mL (10.0-291.0)
[2019-03-31] MEDS ORDERED: WARFARIN 10 MG TAB PO ONE (18:00)
[2019-03-31] MEDS ORDERED: WARFARIN 5 MG TAB PO ONE (18:00)
[2019-03-31] MEDS ORDERED: WARFARIN 3 MG TAB PO SCH (18:00)
[2019-03-31 18:19] LABS: Iron Saturation 7.09 (12.00-45.00)
[2019-03-31] MEDS: PRAVASTATIN SODIUM 40 MG TAB PO SCH (20:03)
--- NOTE | 2019-04-01 00:14 | CONS ---
CONSULTATION Alix Odonnell has a mechanical aortic valve and a mitral valve as well which is probably a tissue valve. Her PT/INR was about ( ) when she came into the hospital with heart failure. Her heart failure has improved. She is breathing better. Denies chest pain. PT/INR is still low at 1.1. I am giving Coumadin 5 mg today. Will start her on Lipitor 20 mg daily and also some potassium supplements and continue the IV Lasix, increase it to every eight hours. Vitals are stable. JVD is evident. S1/S2 heard normally. Prosthetic valve clicks are audible. Lungs are clear. Abdomen and lower extremity exam unchanged. Plan is to obtain an echocardiogram, optimize her PT/INR status, continue Lovenox in the interim. Hopefully discharge in 48 hours. MMODL / IJN: [id number] /
[2019-04-01] MEDS: CARVEDILOL 12.5 MG TAB PO SCH ×2 (05:17→17:35)
[2019-04-01 06:30] LABS: Basophils # (A) 0.1 k/uL (0-0.2); Basophils % (A) 1 %; Eosinophils # (A) 0.4 k/uL (0-0.7); Eosinophils % (A) 9 %; HGB 10.5 gm/dL (11.4-16.0); Hypochromasia Slight; Lymphocytes # (A) 1.1 k/uL (1.0-4.8); Lymphocytes % (A) 25 %; MCHC 31.8 g/dL (31.0-37.0); MCV 87.9 fL (80.0-100.0); Mean Platelet Volume 7.8; Monocytes # (A) 0.4 k/uL (0-1.0); Monocytes % (A) 8 %; Neutrophils # (A) 2.6 k/uL (1.3-7.7); Neutrophils % (A) 55 %; Platelet Count 182 k/uL (150-450); RBC 3.75 m/uL (3.80-5.40); RDW 15.3 % (11.5-15.5); WBC 4.6 k/uL (3.8-10.6)
[2019-04-01 06:45] LABS: INR 1.3 (<1.2); Prothrombin Time 13.3 sec (9.0-12.0)
[2019-04-01 06:57] LABS: Albumin 3.3 g/dL (3.5-5.0); Calcium 11.6 mg/dL (8.4-10.2); Potassium 3.7 mmol/L (3.5-5.1); Total Bilirubin 0.3 mg/dL (0.2-1.3); Total Protein 7.2 g/dL (6.3-8.2)
[2019-04-01] MEDS: ENOXAPARIN 100 MG/ML SYRINGE SQ SCH ×2 (08:29→20:19)
[2019-04-01] MEDS: FUROSEMIDE 10 MG/ML 4 ML VIAL IV SCH ×3 (08:30→22:46)
[2019-04-01] MEDS: AMIODARONE 100 MG TAB PO SCH (08:30)
[2019-04-01] MEDS: ASPIRIN 81 MG PO SCH (08:30)
[2019-04-01] MEDS: PANTOPRAZOLE 40 MG TABLET PO SCH (08:30)
[2019-04-01] MEDS: DOCUSATE 100 MG CAP PO SCH (08:30)
[2019-04-01] MEDS: amLODIPine 5 MG TAB PO SCH (08:30)
--- NOTE | 2019-04-01 14:49 | P.PN ---
Subjective Progress Note Date: 04/01/19 Principal diagnosis: CHF exacerbation / subtheraputic INR Patient currently sitting up in chair eating lunch with no acute distress or complaints. Patient continues stable with no current complaints of chest pain, chest pressure, shortness of breath or palpitations. Patient INR continues subtherapeutic at 1.3. Patient continues on subcutaneous Lovenox. Will increase Coumadin to 7.5 mg once today. K 3.2, add KCL 20meq daily. Patient vital signs stable, 99% on room air. HX of Mechanical AV. EF 45-50%. PHYSICAL EXAM: VITAL SIGNS: stable GENERAL: Well developed, in no acute distress. HEENT: Head is atraumatic, normocephalic. Pupils are equal, round. Extra ocular movements intact. Mucous membranes moist. Neck supple. No JVD. No carotid bruit. No thyromegaly. LUNGS: Clear to auscultation no wheezes, rales or rhonchi. No chest wall tendern ess on palpation or with deep breathing. HEART: Regular rate and rhythm, no rubs or gallops. S1 and S2 heard. No murmur. ABDOMEN: Abdominal exam, WNL. Bowel sounds x4 quads. Soft, non-tender, without masses, organomegaly, or abdominal aorta enlargement. EXTREMITIES/VASCULAR: Extremities have easily palpable radial, femoral, dorsalis pedis and posterior tibial pulses. No cyanosis, calf tenderness. No BLE edema. NEUROLOGIC: Patient is awake, alert and oriented x3. No focal neurologic abnormalities. Objective - Vital Signs Vital signs: Vital Signs Temp 97.4 F L 04/01/19 11:30 Pulse 60 04/01/19 11:30 Resp 18 04/01/19 11:30 BP 130/57 04/01/19 11:30 Pulse Ox 99 04/01/19 11:30 Intake & Output 03/31/19 04/01/19 04/01/19 18:59 06:59 18:59 Intake Total 540 720 Output Total 1800 2400 2200 Balance -1260 -2400 -1480 Weight 87 kg Intake: Oral 540 720 Output: Urine 1800 2400 2200 Other: Voiding Method Toilet Toilet # Voids 4 - Labs CBC & Chem 7: 04/01/19 06:02 04/01/19 06:02 Labs: Abnormal Lab Results - Last 24 Hours (Table) 03/31/19 03/31/19 04/01/19 Range/Units 05:24 05:24 06:02 RBC 3.75 L (3.80-5.40) m/uL Hgb 10.5 L (11.4-16.0) gm/dL Hct 33.0 L (34.0-46.0) % PT (9.0-12.0) sec INR (<1.2) Carbon Dioxide (22-30) mmol/L BUN (7-17) mg/dL Creatinine (0.52-1.04) mg/dL Calcium (8.4-10.2) mg/dL Iron 19 L (50-170) ug/dL Iron Saturation 7.09 L (12.00-45.00) Albumin (3.5-5.0) g/dL PTH Intact 433.7 H (14.0-72.0) pg/mL 04/01/19 04/01/19 Range/Units 06:02 06:02 RBC (3.80-5.40) m/uL Hgb (11.4-16.0) gm/dL Hct (34.0-46.0) % PT 13.3 H (9.0-12.0) sec INR 1.3 H (<1.2) Carbon Dioxide 36 H (22-30) mmol/L BUN 22 H (7-17) mg/dL Creatinine 1.11 H (0.52-1.04) mg/dL Calcium 11.6 H (8.4-10.2) mg/dL Iron (50-170) ug/dL Iron Saturation (12.00-45.00) Albumin 3.3 L (3.5-5.0) g/dL PTH Intact (14.0-72.0) pg/mL
--- NOTE | 2019-04-01 15:06 | P.PN ---
Subjective Progress Note Date: 04/01/19 This is 73-year-old female patient who presented to ER with complaints of increasing shortness of breath. Patient reports that the shortness of breath has been occurring for the past 2 days. She also reports worsening lower extremity edema. Patient also reports that she's had right shoulder blade pain been ongoing for 2 days. Patient does have a past medical history of congestive heart failure, CVA, hyperlipidemia, hypertension, memory impairment, essential tremor, diverticulitis, aortic dissection repair 1999 aortic valve replacement which is mechanical valve in which she is maintained on Coumadin and biventricular pacemaker. Chest x-ray completed showing pulmonary venous congestion with out overt failure at this time. Hital hernia. EKG completed showing sinus rhythm with marked sinus arrhythmia. BNP 1560. Troponin 0.035, 0.536 and 0.937. Cardiology services have been consulted. Patient started on IV Lasix. Patient's INR subtherapeutic at 1.0 will bridge patient with Lovenox. Patient's creatinine slightly elevated at 1.23) 20 we'll continue to monitor. At this time patient denies chest pain or shortness breath. Patient denies nausea vomiting or diarrhea. Patient denies any urinary burning or frequency. On 03/30/2019 patient's alert and oriented 3. Patient reports improvement with her shortness of breath and right shoulder pain. Patient's INR remains low. Patient is currently on Lovenox 1 mg/kg twice a day until therapeutic INR is achieved. Patient remains on IV Lasix per cardiology services. At this time patient denies chest pain or shortness of breath. Patient denies nausea vomiting or diarrhea. Patient denies urinary burning or frequency 03/31/2019 patient still reporting some shortness of breath and lower extremity edema. She does report symptoms are showing slow improvement. She feels that she is weak and will require rehab. She is working with physical therapy. INR is still low at 1.1. Cardiology is ordered 5 mg now and 5 mg in the evening. She is also bridged with the Lovenox. Influenza screening was negative. Calcium level is elevated 11.2. Parathyroid hormone has been ordered. Hemoglobin is low at 9.1 no active signs of bleeding. Patient does have a known history of iron deficiency anemia. Creatinine is 1.08 potassium is 3.4. Patient does receive potassium supplement per protocol. On 04/01/2019 patient was seen and examined on the medical floor she is alert and oriented 3 in no apparent distress, she is complaining of fatigue and constipation otherwise she denies any complaints, laboratory data is significant for severely elevated PTH level at 433, there is no mastic floor layer rounding at the hospital will arrange for follow-up as outpatient with endocrinology Objective - Vital Signs Vital signs: Vital Signs Temp 97.4 F L 04/01/19 11:30 Pulse 60 04/01/19 11:30 Resp 18 04/01/19 11:30 BP 130/57 04/01/19 11:30 Pulse Ox 99 04/01/19 11:30 Intake & Output 03/31/19 04/01/19 04/01/19 18:59 06:59 18:59 Intake Total 540 720 Output Total 1800 2400 2200 Balance -1260 -2400 -1480 Weight 87 kg Intake: Oral 540 720 Output: Urine 1800 2400 2200 Other: Voiding Method Toilet Toilet # Voids 4 - Exam In general patient is alert and oriented 3 in no apparent distress Head normocephalic and atraumatic Neck supple no JVD no goiter Lungs clear to auscultation bilaterally no wheezing or crackles Heart mechanical valve heart sounds noted Abdomen is soft nontender nondistended positive bowel sounds no hepatosplenomegaly Extremities edema present bilateral lower extremities with Henry wraps Neuro no gross focal neurological deficit - Labs CBC & Chem 7: 04/01/19 06:02 04/01/19 06:02 Labs: Abnormal Lab Results - Last 24 Hours (Table) 03/31/19 03/31/19 04/01/19 Range/Units 05:24 05:24 06:02 RBC 3.75 L (3.80-5.40) m/uL Hgb 10.5 L (11.4-16.0) gm/dL Hct 33.0 L (34.0-46.0) % PT (9.0-12.0) sec INR (<1.2) Carbon Dioxide (22-30) mmol/L BUN (7-17) mg/dL Creatinine (0.52-1.04) mg/dL Calcium (8.4-10.2) mg/dL Iron 19 L (50-170) ug/dL Iron Saturation 7.09 L (12.00-45.00) Albumin (3.5-5.0) g/dL PTH Intact 433.7 H (14.0-72.0) pg/mL 04/01/19 04/01/19 Range/Units 06:02 06:02 RBC (3.80-5.40) m/uL Hgb (11.4-16.0) gm/dL Hct (34.0-46.0) % PT 13.3 H (9.0-12.0) sec INR 1.3 H (<1.2) Carbon Dioxide 36 H (22-30) mmol/L BUN 22 H (7-17) mg/dL Creatinine 1.11 H (0.52-1.04) mg/dL Calcium 11.6 H (8.4-10.2) mg/dL Iron (50-170) ug/dL Iron Saturation (12.00-45.00) Albumin 3.3 L (3.5-5.0) g/dL PTH Intact (14.0-72.0) pg/mL Assessment and Plan Plan: 1. Increased shortness of breath related to acute on chronic diastolic congestive heart failure exacerbation. Continue IV Lasix. Cardiology is following. Echo pending. continue daily weight monitoring 2. Abnormality to troponins. Initial troponin 0.03 5.0.56 and 0.937. Per cardiology cannot completely rule out acute coronary syndrome with underlying coronary artery disease cardiology services are following. 3. Acute kidney injury. Creatinine 1.23 . Creatinine is now down to 1.08. Low monitor 4. History of an aortic valve placement mechanical valve. Patient is maintained on Coumadin. INR 1.1 will bridge with Lovenox until INR is therapeutic. She's receiving a total of 10 mg daily of Coumadin. Repeat PT/INR in a.m. 5. History of cardiomyopathy status post biventricular pacemaker placement 6. History of chronic diastolic congestive heart failure 7. History of proximal atrial fibrillation with previous cardioversion 8. History of essential tremor 9. History of diverticulitis 10. History of CVA and TIA 11. History of aortic dissection repair 1998 12. Iron deficiency anemia. Check iron studies. Patient currently not on iron supplement 13. Bilateral lower extremity edema related to CHF exacerbation. Continue Silvadene and Henry wraps. 14. Hypokalemia: Patient receiving potassium supplement. Repeat labs in a.m. 15. Hypercalcemia: Check parathyroid hormone level. In past records it does appear that patient has history of hypercalcemia and hyperparathyroidism. DVT prophylaxis Coumadin currently being bridged with Lovenox. GI prophylaxis Protonix PT OT consulted social consulted possible rehab placement
[2019-04-01] MEDS: POTASSIUM CHLORIDE ER 20 MEQ TAB.ER PO SCH (16:17)
[2019-04-01] MEDS ORDERED: WARFARIN 7.5 MG TAB PO ONE (18:00)
[2019-04-01] MEDS: PRAVASTATIN SODIUM 40 MG TAB PO SCH (20:19)
[2019-04-01] MEDS: ACETAMINOPHEN TAB 325 MG TAB PO PRN (22:46)
[2019-04-02] MEDS: CARVEDILOL 12.5 MG TAB PO SCH ×2 (06:12→17:46)
[2019-04-02 06:24] LABS: INR 1.4 (<1.2); Prothrombin Time 14.1 sec (9.0-12.0)
[2019-04-02] MEDS: FUROSEMIDE 10 MG/ML 4 ML VIAL IV SCH ×2 (08:46→08:51)
[2019-04-02] MEDS: amLODIPine 5 MG TAB PO SCH (08:47)
[2019-04-02] MEDS: ENOXAPARIN 100 MG/ML SYRINGE SQ SCH ×2 (08:47→20:13)
[2019-04-02] MEDS: PANTOPRAZOLE 40 MG TABLET PO SCH (08:47)
[2019-04-02] MEDS: POTASSIUM CHLORIDE ER 20 MEQ TAB.ER PO SCH (08:47)
[2019-04-02] MEDS: ASPIRIN 81 MG PO SCH (08:47)
[2019-04-02] MEDS: AMIODARONE 100 MG TAB PO SCH (08:47)
[2019-04-02] MEDS: DOCUSATE 100 MG CAP PO SCH (08:47)
[2019-04-02] MEDS ORDERED: WARFARIN 7.5 MG TAB PO ONE (09:00)
--- NOTE | 2019-04-02 09:28 | P.PN ---
Subjective This is a pleasant 73 female past medical history significant for nonischemic cardiomyopathy, mitral valve replacement, aortic dissection repair with mechanical aortic valve replacement, chronic persistent atrial fibrillation, hypertension and dyslipidemia. She is seen and examined sitting up in no acute distress. She states overall her breathing has improved since admission however still not back to baseline. She states that she gets up and ambulates around the room she still feels mildly dyspneic. She denies chest pain, dizziness or palpitations. Blood pressure 137/66 heart rate 68 afebrile maintaining oxygen saturation on room air. Laboratory data reviewed, INR 1.4. Currently maintained on Lasix 40 mg IV 3 times a day, amiodarone 100 mg daily, amlodipine 5 mg daily, aspirin 81 mg daily, carvedilol 12.5 mg twice a day, pravastatin 40 mg daily and Coumadin. GENERAL: Well-appearing, well-nourished and in no acute distress. NECK: Supple without JVD or thyromegaly. LUNGS: Breath sounds clear to auscultation bilaterally. Respiration equal and unlabored. No wheezes, rales or rhonchi. HEART: Irregular rate and rhythm with mechanical click at all listening points, systolic ejection murmur at the left sternal border, no rubs or gallops. S1 and S2 heard. EXTREMITIES: Normal range of motion, trace edema, erythema and dry/cracking appearance. No clubbing or cyanosis. Peripheral pulses intact. ASSESSMENT Acute on chronic diastolic heart failure, improving Subtherapeutic INR Chronic persistent atrial fibrillation on long-term anticoagulation Valvular heart disease status post mitral and aortic valve replacement. Aortic valve is mechanical. History of aortic aneurysm status post repair Hypertension Dyslipidemia PLAN Continue bridging with Lovenox and give additional dose now of Coumadin 7.5 mg. Transition to oral diuretics. Nurse Practitioner note has been reviewed, I agree with a documented findings and plan of care. Patient was seen and examined. Objective - Vital Signs Vital signs: Vital Signs Temp 99 F 04/02/19 08:00 Pulse 60 04/02/19 08:00 Resp 18 04/02/19 08:00 BP 137/66 04/02/19 08:00 Pulse Ox 95 04/02/19 08:00 Intake & Output 04/01/19 04/02/19 04/02/19 18:59 06:59 18:59 Intake Total 720 10 250 Output Total 2850 1350 Balance -2130 -1340 250 Weight 87.1 kg Intake: IV 10 10 Invasive Line 2 10 10 Oral 720 240 Output: Urine 2850 1350 Other: Voiding Method Toilet Toilet # Voids 1 - Labs CBC & Chem 7: 04/01/19 06:02 04/01/19 06:02 Labs: Abnormal Lab Results - Last 24 Hours (Table) 04/02/19 Range/Units 05:27 PT 14.1 H (9.0-12.0) sec INR 1.4 H (<1.2)
--- NOTE | 2019-04-02 14:10 | P.PN ---
Subjective Progress Note Date: 04/02/19 This is 73-year-old female patient who presented to ER with complaints of increasing shortness of breath. Patient reports that the shortness of breath has been occurring for the past 2 days. She also reports worsening lower extremity edema. Patient also reports that she's had right shoulder blade pain been ongoing for 2 days. Patient does have a past medical history of congestive heart failure, CVA, hyperlipidemia, hypertension, memory impairment, essential tremor, diverticulitis, aortic dissection repair 1999 aortic valve replacement which is mechanical valve in which she is maintained on Coumadin and biventricular pacemaker. Chest x-ray completed showing pulmonary venous congestion with out overt failure at this time. Hital hernia. EKG completed showing sinus rhythm with marked sinus arrhythmia. BNP 1560. Troponin 0.035, 0.536 and 0.937. Cardiology services have been consulted. Patient started on IV Lasix. Patient's INR subtherapeutic at 1.0 will bridge patient with Lovenox. Patient's creatinine slightly elevated at 1.23) 20 we'll continue to monitor. At this time patient denies chest pain or shortness breath. Patient denies nausea vomiting or diarrhea. Patient denies any urinary burning or frequency. On 03/30/2019 patient's alert and oriented 3. Patient reports improvement with her shortness of breath and right shoulder pain. Patient's INR remains low. Patient is currently on Lovenox 1 mg/kg twice a day until therapeutic INR is achieved. Patient remains on IV Lasix per cardiology services. At this time patient denies chest pain or shortness of breath. Patient denies nausea vomiting or diarrhea. Patient denies urinary burning or frequency 03/31/2019 patient still reporting some shortness of breath and lower extremity edema. She does report symptoms are showing slow improvement. She feels that she is weak and will require rehab. She is working with physical therapy. INR is still low at 1.1. Cardiology is ordered 5 mg now and 5 mg in the evening. She is also bridged with the Lovenox. Influenza screening was negative. Calcium level is elevated 11.2. Parathyroid hormone has been ordered. Hemoglobin is low at 9.1 no active signs of bleeding. Patient does have a known history of iron deficiency anemia. Creatinine is 1.08 potassium is 3.4. Patient does receive potassium supplement per protocol. On 04/01/2019 patient was seen and examined on the medical floor she is alert and oriented 3 in no apparent distress, she is complaining of fatigue and constipation otherwise she denies any complaints, laboratory data is significant for severely elevated PTH level at 433, there is no chief green officer rounding at the hospital will arrange for follow-up as outpatient with endocrinology. On 04/02/2019 patient is doing well she is alert and oriented 3 in no apparent distress she is still complaining of shortness of breath with any activity otherwise she denies any complaints there is no fever or chills no headache or dizziness no chest pain no cough no nausea or vomiting no abdominal pain no diarrhea and no urinary symptoms INR today 1.4 she will be given 7.5 mg of Coumadin today Objective - Vital Signs Vital signs: Vital Signs Temp 97.4 F L 04/02/19 11:26 Pulse 60 04/02/19 11:26 Resp 18 04/02/19 11:26 BP 132/74 04/02/19 11:26 Pulse Ox 97 04/02/19 11:26 Intake & Output 04/01/19 04/02/19 04/02/19 18:59 06:59 18:59 Intake Total 720 10 500 Output Total 2850 1350 700 Balance -2130 -1340 -200 Weight 87.1 kg Intake: IV 10 20 Invasive Line 2 10 20 Oral 720 480 Output: Urine 2850 1350 700 Other: Voiding Method Toilet Toilet # Voids 1 - Exam In general patient is alert and oriented 3 in no apparent distress Head normocephalic and atraumatic Neck supple no JVD no goiter Lungs clear to auscultation bilaterally no wheezing or crackles Heart mechanical valve heart sounds noted Abdomen is soft nontender nondistended positive bowel sounds no hepatosplenomegaly Extremities edema present bilateral lower extremities with Henry wraps Neuro no gross focal neurological deficit - Labs CBC & Chem 7: 04/01/19 06:02 04/01/19 06:02 Labs: Abnormal Lab Results - Last 24 Hours (Table) 04/02/19 Range/Units 05:27 PT 14.1 H (9.0-12.0) sec INR 1.4 H (<1.2) Assessment and Plan Plan: 1. Increased shortness of breath related to acute on chronic diastolic congestive heart failure exacerbation. Continue IV Lasix. Cardiology is following. Echo pending. continue daily weight monitoring 2. Abnormality to troponins. Initial troponin 0.03 5.0.56 and 0.937. Per cardiology cannot completely rule out acute coronary syndrome with underlying coronary artery disease cardiology services are following. 3. Acute kidney injury. Creatinine 1.23 . Creatinine is now down to 1.08. Low monitor 4. History of an aortic valve placement mechanical valve. Patient is maintained on Coumadin. INR 1.1 will bridge with Lovenox until INR is therapeutic. She's receiving a total of 10 mg daily of Coumadin. Repeat PT/INR in a.m. 5. History of cardiomyopathy status post biventricular pacemaker placement 6. History of chronic diastolic congestive heart failure 7. History of proximal atrial fibrillation with previous cardioversion 8. History of essential tremor 9. History of diverticulitis 10. History of CVA and TIA 11. History of aortic dissection repair 1998 12. Iron deficiency anemia. Check iron studies. Patient currently not on iron supplement 13. Bilateral lower extremity edema related to CHF exacerbation. Continue Silvadene and Henry wraps. 14. Hypokalemia: Patient receiving potassium supplement. Repeat labs in a.m. 15. Hypercalcemia: Check parathyroid hormone level. In past records it does appear that patient has history of hypercalcemia and hyperparathyroidism. DVT prophylaxis Coumadin currently being bridged with Lovenox. GI prophylaxis Protonix PT OT consulted social consulted possible rehab placement
[2019-04-02] MEDS: ACETAMINOPHEN TAB 325 MG TAB PO PRN (14:19)
[2019-04-02] MEDS: FUROSEMIDE 40 MG TAB PO SCH (15:00)
[2019-04-02] MEDS: PRAVASTATIN SODIUM 40 MG TAB PO SCH (20:13)
[2019-04-03 06:27] LABS: Basophils # (A) 0.1 k/uL (0-0.2); Basophils % (A) 2 %; Eosinophils # (A) 0.4 k/uL (0-0.7); Eosinophils % (A) 9 %; HCT 32.3 % (34.0-46.0); HGB 10.2 gm/dL (11.4-16.0); Hypochromasia Moderate; Lymphocytes # (A) 1.1 k/uL (1.0-4.8); Lymphocytes % (A) 25 %; MCH 27.9 pg (25.0-35.0); MCHC 31.5 g/dL (31.0-37.0); MCV 88.5 fL (80.0-100.0); Monocytes # (A) 0.3 k/uL (0-1.0); Monocytes % (A) 8 %; Neutrophils # (A) 2.3 k/uL (1.3-7.7); Neutrophils % (A) 53 %; Platelet Count 210 k/uL (150-450); RBC 3.65 m/uL (3.80-5.40); WBC 4.3 k/uL (3.8-10.6)
[2019-04-03 06:29] LABS: INR 1.8 (<1.2)
[2019-04-03 06:43] LABS: Albumin 3.3 g/dL (3.5-5.0); Calcium 11.4 mg/dL (8.4-10.2); Potassium 3.9 mmol/L (3.5-5.1); Total Bilirubin 0.4 mg/dL (0.2-1.3); Total Protein 7.1 g/dL (6.3-8.2)
[2019-04-03] MEDS: CARVEDILOL 12.5 MG TAB PO SCH ×2 (06:46→17:26)
[2019-04-03] MEDS: PANTOPRAZOLE 40 MG TABLET PO SCH (09:20)
[2019-04-03] MEDS: amLODIPine 5 MG TAB PO SCH (09:20)
[2019-04-03] MEDS: DOCUSATE 100 MG CAP PO SCH ×2 (09:20→21:24)
[2019-04-03] MEDS: FUROSEMIDE 80 MG TAB PO SCH (09:20)
[2019-04-03] MEDS: ASPIRIN 81 MG PO SCH (09:20)
[2019-04-03] MEDS: POTASSIUM CHLORIDE ER 20 MEQ TAB.ER PO SCH (09:20)
[2019-04-03] MEDS: ENOXAPARIN 100 MG/ML SYRINGE SQ SCH ×2 (09:21→21:24)
[2019-04-03] MEDS: AMIODARONE 100 MG TAB PO SCH (09:21)
--- NOTE | 2019-04-03 09:46 | P.PN ---
Subjective Progress Note Date: 04/03/19 This is 73-year-old female patient who presented to ER with complaints of increasing shortness of breath. Patient reports that the shortness of breath has been occurring for the past 2 days. She also reports worsening lower extremity edema. Patient also reports that she's had right shoulder blade pain been ongoing for 2 days. Patient does have a past medical history of congestive heart failure, CVA, hyperlipidemia, hypertension, memory impairment, essential tremor, diverticulitis, aortic dissection repair 1999 aortic valve replacement which is mechanical valve in which she is maintained on Coumadin and biventricular pacemaker. Chest x-ray completed showing pulmonary venous congestion with out overt failure at this time. Hital hernia. EKG completed showing sinus rhythm with marked sinus arrhythmia. BNP 1560. Troponin 0.035, 0.536 and 0.937. Cardiology services have been consulted. Patient started on IV Lasix. Patient's INR subtherapeutic at 1.0 will bridge patient with Lovenox. Patient's creatinine slightly elevated at 1.23) 20 we'll continue to monitor. At this time patient denies chest pain or shortness breath. Patient denies nausea vomiting or diarrhea. Patient denies any urinary burning or frequency. On 03/30/2019 patient's alert and oriented 3. Patient reports improvement with her shortness of breath and right shoulder pain. Patient's INR remains low. Patient is currently on Lovenox 1 mg/kg twice a day until therapeutic INR is achieved. Patient remains on IV Lasix per cardiology services. At this time patient denies chest pain or shortness of breath. Patient denies nausea vomiting or diarrhea. Patient denies urinary burning or frequency 03/31/2019 patient still reporting some shortness of breath and lower extremity edema. She does report symptoms are showing slow improvement. She feels that she is weak and will require rehab. She is working with physical therapy. INR is still low at 1.1. Cardiology is ordered 5 mg now and 5 mg in the evening. She is also bridged with the Lovenox. Influenza screening was negative. Calcium level is elevated 11.2. Parathyroid hormone has been ordered. Hemoglobin is low at 9.1 no active signs of bleeding. Patient does have a known history of iron deficiency anemia. Creatinine is 1.08 potassium is 3.4. Patient does receive potassium supplement per protocol. On 04/01/2019 patient was seen and examined on the medical floor she is alert and oriented 3 in no apparent distress, she is complaining of fatigue and constipation otherwise she denies any complaints, laboratory data is significant for severely elevated PTH level at 433, there is no bindery cutter operator rounding at the hospital will arrange for follow-up as outpatient with endocrinology. On 04/02/2019 patient is doing well she is alert and oriented 3 in no apparent distress she is still complaining of shortness of breath with any activity otherwise she denies any complaints there is no fever or chills no headache or dizziness no chest pain no cough no nausea or vomiting no abdominal pain no diarrhea and no urinary symptoms INR today 1.4 she will be given 7.5 mg of Coumadin today On 04/03/2019 patient is alert and oriented 3. Patient is feeling improved with shortness of breath. Patient still having some mild shoulder discomfort. INR today 1.8. Patient remains on Lovenox. Patient has been transitioned to oral Lasix. Per case management working on discharge to [facility] for rehab. At this time patient denies chest pain or shortness of breath. Patient denies nausea vomiting or diarrhea. Patient denies any urinary burning or frequency. Objective - Vital Signs Vital signs: Vital Signs Temp 97.9 F 04/03/19 08:00 Pulse 60 04/03/19 08:00 Resp 18 04/03/19 08:00 BP 114/63 04/03/19 08:00 Pulse Ox 98 04/03/19 08:00 Intake & Output 04/02/19 04/03/19 04/03/19 18:59 06:59 18:59 Intake Total 750 Output Total 700 1950 Balance 50 -1950 Weight 85 kg Intake: IV 30 Invasive Line 2 30 Oral 720 Output: Urine 700 1950 Other: Voiding Method Toilet # Voids 1 1 - Exam Head normocephalic Neck supple Lungs clear to auscultation bilaterally no wheezing or crackles Heart biventricular paced, mitral valve mechanical valve Abdomen is soft nontender nondistended positive bowel sounds no hepatosplenomegaly Extremities +1 lower extremity edema Neuro alert and orientated to 3 - Labs CBC & Chem 7: 04/03/19 05:25 04/03/19 05:25 Labs: Abnormal Lab Results - Last 24 Hours (Table) 10/07/19 10/07/19 10/07/19 Range/Units 05:25 05:25 05:25 RBC 3.65 L (3.80-5.40) m/uL Hgb 10.2 L (11.4-16.0) gm/dL Hct 32.3 L (34.0-46.0) % PT 18.0 H (9.0-12.0) sec INR 1.8 H (<1.2) Carbon Dioxide 31 H (22-30) mmol/L BUN 24 H (7-17) mg/dL Calcium 11.4 H (8.4-10.2) mg/dL Albumin 3.3 L (3.5-5.0) g/dL Assessment and Plan Assessment: 1. Increased shortness of breath related to acute on chronic diastolic congestive heart failure exacerbation. Continue IV Lasix. Cardiology is following. Echo pending. continue daily weight monitoring 2. Abnormality to troponins. Initial troponin 0.03 5.0.56 and 0.937. Per cardiology cannot completely rule out acute coronary syndrome with underlying coronary artery disease cardiology services are following. 3. Acute kidney injury. Creatinine 1.23 . Creatinine is now down to 1.08. continue to monitor 4. History of an aortic valve placement mechanical valve. Patient is maintained on Coumadin. INR 1.1 will bridge with Lovenox until INR is therapeutic. She's receiving a total of 10 mg daily of Coumadin. Repeat PT/INR in a.m. 5. History of cardiomyopathy status post biventricular pacemaker placement 6. History of chronic diastolic congestive heart failure 7. History of proximal atrial fibrillation with previous cardioversion 8. History of essential tremor 9. History of diverticulitis 10. History of CVA and TIA 11. History of aortic dissection repair 1998 12. Iron deficiency anemia. Check iron studies. Patient currently not on iron supplement 13. Bilateral lower extremity edema related to CHF exacerbation. Continue Silvadene and Henry wraps. 14. Hypokalemia: Patient receiving potassium supplement. Repeat labs in a.m. 15. Hypercalcemia: Check parathyroid hormone level. In past records it does appear that patient has history of hypercalcemia and hyperparathyroidism. DVT prophylaxis Coumadin currently being bridged with Lovenox. GI prophylaxis Protonix DVT prophylaxis Coumadin currently being bridged with Lovenox. GI prophylaxis Protonix PT OT consulted social consulted possible rehab placement Per case management working on discharge to [facility] I performed an examination of the patient and discussed their management with the Nurse Practitioner. I have reviewed the Nurse Practitioner's notes and agree with the documented findings and plan of care
--- NOTE | 2019-04-03 12:37 | P.PN ---
Subjective Progress Note Date: 04/03/19 This is a 73-year-old female who follows regularly with Dr. Helton in the office. She has a history of nonischemic cardiomyopathy with prior mitral valve replacement and aortic dissection repair with aortic valve replacement, mechanical valve, at [facility], she also has history of by V pacemaker for her nonischemic cardio myopathy, history of mechanical aortic valve, hypertension, hyperlipidemia, prior CVA, tremors, history of chronic atrial fibrillation, she presents to the hospital with symptoms of a 2 day duration of progressively worsening shortness of breath and lower extremity edema. Chest x-ray on presentation here showed pulmonary venous congestion. EKG showed atrial fibrillation with controlled ventricular response, BNP level 1560, troponin 0.035, 0.53, 0.93. White blood cell count normal, hemoglobin 10.4, platelet count 162. Sodium 141, potassium 3.7, BUN 20, creatinine 1.3. Blood pressure 124/60 with a heart rate of 60, temperature 98.4. was i nitiated on IV Lasix in the emergency room, she has been diuresing well overall. She does state that her breathing is much improved from admission here. INR subtherapeutic at 1.0. 03/30/2019 Patient seen and examined this morning, states that her breathing is improving, she also states that the discomfort in her shoulder is also improving. She continues to be on Lovenox and IV Lasix. INR continues to be 1.0 today. White blood cell count 3.7, hemoglobin 9.7, platelet count 162. Sodium 141, potassium 3.2, BUN 16 and creatinine 1.05. 04/03/2019 Patient was seen and examined this morning, alert and oriented 3. Feeling significantly better overall. INR today 1.8. Scheduled to go to [facility] for rehab, we will give her 7-/ Coumadin today continue Lovenox twice a day until the patient's INR becomes within the range of 3-3.5. Objective - Vital Signs Vital signs: Vital Signs Temp 97.9 F 04/03/19 08:00 Pulse 60 04/03/19 12:00 Resp 20 04/03/19 12:00 BP 140/54 04/03/19 12:00 Pulse Ox 98 04/03/19 12:00 Intake & Output 04/02/19 04/03/19 04/03/19 18:59 06:59 18:59 Intake Total 750 480 Output Total 700 1950 300 Balance 50 -1950 180 Weight 85 kg Intake: IV 30 Invasive Line 2 30 Oral 720 480 Output: Urine 700 1950 300 Other: Voiding Method Toilet # Voids 1 1 1 # Bowel Movements 1 - Exam PHYSICAL EXAMINATION: GENERAL: 73-year-old female in no acute distress at the time of my examination HEENT: Head is atraumatic, normocephalic. Pupils equal, round. Sclera anicter ic. Conjunctiva are clear. Mucous membranes of the mouth are moist. Neck is supple. There is no elevated jugular venous pressure.No carotid bruit is heard. HEART EXAMINATION: Heart S1 and S2 irregularly irregular a systolic ejection murmur is heard, aortic valve click is also heard CHEST EXAMINATION: Lungs there to auscultation ABDOMEN: Soft, nontender. Bowel sounds are heard. No organomegaly noted. EXTREMITIES: 2+ peripheral pulses with trace evidence of peripheral edema and no calf tenderness noted. NEUROLOGIC patient is awake, alert and oriented X 3 - Labs CBC & Chem 7: 04/03/19 05:25 04/03/19 05:25 Labs: Abnormal Lab Results - Last 24 Hours (Table) 04/03/19 04/03/19 04/03/19 Range/Units 05:25 05:25 05:25 RBC 3.65 L (3.80-5.40) m/uL Hgb 10.2 L (11.4-16.0) gm/dL Hct 32.3 L (34.0-46.0) % PT 18.0 H (9.0-12.0) sec INR 1.8 H (<1.2) Carbon Dioxide 31 H (22-30) mmol/L BUN 24 H (7-17) mg/dL Calcium 11.4 H (8.4-10.2) mg/dL Albumin 3.3 L (3.5-5.0) g/dL Assessment and Plan Plan: Assessment and plan #1 diastolic congestive heart failure acute on chronic #2 history of aortic aneurysm repair as well as grafting, mechanical aortic valve with a [facility] #3 history of mitral valve replacement #4 history of IV pacemaker #5 hypertension #6 hyperlipidemia #7 persistent atrial fibrillation #8 history of iron deficiency anemia #9 abnormality in troponin, 0.03, 0.5, 0.9. Cannot completely rule out acute coronary syndrome with underlying coronary artery disease Plan Continue Lovenox along with Coumadin to maintain an INR in the range of 3-3.5. Possible [facility] transfer. DNP note has been reviewed, I agree with a documented findings and plan of care. Patient was seen and examined.
[2019-04-03] MEDS: ACETAMINOPHEN TAB 325 MG TAB PO PRN ×2 (13:43→21:26)
[2019-04-03] MEDS: FUROSEMIDE 40 MG TAB PO SCH (17:26)
[2019-04-03] MEDS ORDERED: WARFARIN 2 MG TAB PO SCH (18:00)
[2019-04-03] MEDS ORDERED: WARFARIN 7.5 MG TAB PO ONE (18:00)
[2019-04-03] MEDS: PRAVASTATIN SODIUM 40 MG TAB PO SCH (21:24)
[2019-04-04] MEDS: CARVEDILOL 12.5 MG TAB PO SCH (06:48)
[2019-04-04 07:14] LABS: INR 2.4 (<1.2); Prothrombin Time 23.8 sec (9.0-12.0)
[2019-04-04 07:39] LABS: Calcium 10.9 mg/dL (8.4-10.2); Potassium 3.5 mmol/L (3.5-5.1); Total Protein 6.7 g/dL (6.3-8.2)
[2019-04-04 07:40] LABS: Albumin 3.1 g/dL (3.5-5.0); Total Bilirubin 0.2 mg/dL (0.2-1.3)
[2019-04-04 08:08] LABS: Basophils # (A) 0.1 k/uL (0-0.2); Basophils % (A) 1 %; Eosinophils # (A) 0.3 k/uL (0-0.7); Eosinophils % (A) 8 %; HCT 30.9 % (34.0-46.0); HGB 9.8 gm/dL (11.4-16.0); Hypochromasia Moderate; Lymphocytes # (A) 1.1 k/uL (1.0-4.8); Lymphocytes % (A) 29 %; MCH 28.2 pg (25.0-35.0); MCHC 31.7 g/dL (31.0-37.0); MCV 88.8 fL (80.0-100.0); Monocytes # (A) 0.3 k/uL (0-1.0); Monocytes % (A) 9 %; Neutrophils % (A) 51 %; Platelet Count 195 k/uL (150-450); RBC 3.48 m/uL (3.80-5.40); WBC 3.9 k/uL (3.8-10.6)
[2019-04-04] MEDS: ASPIRIN 81 MG PO SCH (09:28)
[2019-04-04] MEDS: amLODIPine 5 MG TAB PO SCH (09:28)
[2019-04-04] MEDS: ENOXAPARIN 100 MG/ML SYRINGE SQ SCH (09:28)
[2019-04-04] MEDS: PANTOPRAZOLE 40 MG TABLET PO SCH (09:28)
[2019-04-04] MEDS: AMIODARONE 100 MG TAB PO SCH (09:28)
[2019-04-04] MEDS: DOCUSATE 100 MG CAP PO SCH (09:28)
[2019-04-04] MEDS: FUROSEMIDE 80 MG TAB PO SCH (09:28)
[2019-04-04] MEDS: POTASSIUM CHLORIDE ER 20 MEQ TAB.ER PO SCH (09:28)
[2019-04-04 09:59] VITALS: BMI 28.2
[2019-04-04 10:30] VITALS: PULSE 62; RESP 20; TEMP 98.1
--- NOTE | 2019-04-04 12:21 | P.DS ---
Providers Date of admission: 03/28/19 16:54 Expected date of discharge: 04/04/19 Attending physician: Pauly Sosa Consults: 03/28/19 17:03 Consult Physician Stat Consulting Provider: [facility] Consult Reason/Comments: chf exacerbation Do you want consulting provider notified?: Yes Primary care physician: Pauly Sosa [facility] Hospital Course: Discharge diagnosis 1. Increased shortness of breath related to acute on chronic diastolic congestive heart failure exacerbation. Continue IV Lasix. Cardiology is following. Echo completed reviewed per cardiology. EF 45-50%. Patient has been transitioned to home dose of Lasix. Cleared for discharge per per cardiology standpoint. 2. Abnormality to troponins. Initial troponin 0.03 5.0.56 and 0.937. Per cardiology cannot completely rule out acute coronary syndrome with underlying coronary artery disease cardiology services are following. 3. Acute kidney injury. Creatinine 1.23 . Creatinine is now down to 1.08. continue to monitor 4. History of an aortic valve placement mechanical valve. Patient is maintained on Coumadin. INR 1.1 will bridge with Lovenox until INR is therapeutic. She's receiving a total of 10 mg daily of Coumadin. Repeat PT/INR in a.m. INR is 2.4. Patient states milligrams Coumadin today before discharge, and discharged on 5 mg Coumadin daily. Daily INRs until therapeutic. 5. History of cardiomyopathy status post biventricular pacemaker placement 6. History of chronic diastolic congestive heart failure 7. History of proximal atrial fibrillation with previous cardioversion 8. History of essential tremor 9. History of diverticulitis 10. History of CVA and TIA 11. History of aortic dissection repair 1998 12. Iron deficiency anemia. Check iron studies. Patient currently not on iron supplement 13. Bilateral lower extremity edema related to CHF exacerbation. Continue Silvadene and Henry wraps. 14. Hypokalemia: Patient receiving potassium supplement. Repeat labs in a.m. patient will be DC'd on potassium supplement. 15. Hypercalcemia: Check parathyroid hormone level. In past records it does appear that patient has history of hypercalcemia and hyperparathyroidism. PTH 433.7 and calcium 10.9. Patient instructed to follow-up with endocrinology outpatient Hospital Course This is 73-year-old female patient who presented to ER with complaints of increasing shortness of breath. Patient reports that the shortness of breath has been occurring for the past 2 days. She also reports worsening lower extremity edema. Patient also reports that she's had right shoulder blade pain been ongoing for 2 days. Patient does have a past medical history of congestive heart failure, CVA, hyperlipidemia, hypertension, memory impairment, essential tremor, diverticulitis, aortic dissection repair 1999 aortic valve replacement which is mechanical valve in which she is maintained on Coumadin and biventricular pacemaker. Chest x-ray completed showing pulmonary venous congestion with out overt failure at this time. Hital hernia. EKG completed showing sinus rhythm with marked sinus arrhythmia. BNP 1560. Troponin 0.035, 0.536 and 0.937. Cardiology services have been consulted. Patient started on IV Lasix. Patient's INR subtherapeutic at 1.0 will bridge patient with Lovenox. Patient's creatinine slightly elevated at 1.23) 20 we'll continue to monitor. At this time patient denies chest pain or shortness breath. Patient denies nausea vomiting or diarrhea. Patient denies any urinary burning or frequency. On 03/30/2019 patient's alert and oriented 3. Patient reports improvement with her shortness of breath and right shoulder pain. Patient's INR remains low. Patient is currently on Lovenox 1 mg/kg twice a day until therapeutic INR is achieved. Patient remains on IV Lasix per cardiology services. At this time patient denies chest pain or shortness of breath. Patient denies nausea vomiting or diarrhea. Patient denies urinary burning or frequency 03/31/2019 patient still reporting some shortness of breath and lower extremity edema. She does report symptoms are showing slow improvement. She feels that she is weak and will require rehab. She is working with physical therapy. INR is still low at 1.1. Cardiology is ordered 5 mg now and 5 mg in the evening. She is also bridged with the Lovenox. Influenza screening was negative. Calcium level is elevated 11.2. Parathyroid hormone has been ordered. Hemoglobin is low at 9.1 no active signs of bleeding. Patient does have a known history of iron deficiency anemia. Creatinine is 1.08 potassium is 3.4. Patient does receive potassium supplement per protocol. 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 On 04/02/2019 patient is doing well she is alert and oriented 3 in no apparent distress she is still complaining of shortness of breath with any activity otherwise she denies any complaints there is no fever or chills no headache or dizziness no chest pain no cough no nausea or vomiting no abdominal pain no diarrhea and no urinary symptoms INR today 1.4 she will be given 7.5 mg of Coumadin today On 04/03/2019 patient is alert and oriented 3. Patient is feeling improved wit h shortness of breath. Patient still having some mild shoulder discomfort. INR today 1.8. Patient remains on Lovenox. Patient has been transitioned to oral Lasix. Per case management working on discharge to [facility] for rehab. At this time patient denies chest pain or shortness of breath. Patient denies nausea vomiting or diarrhea. Patient denies any urinary burning or frequency. On 04/04/2018 patient is alert and oriented 3 patient's that she is feeling better than she has previously. Spoke with cardiology, patient is cleared for discharge. Patient will go to [facility] for rehab. Patient INR level 2.4. Patient will receive 7.5 mg Coumadin today before discharge. Patient will be discharged on 5 mg of Coumadin daily. Daily INRs until therapeutic. PTH 433.7 and calcium 10.9. Patient's rectum to follow-up with endocrinology outpatient. Patient denies nausea vomiting, diarrhea, denies chest pain, denies shortness of breath, patient denies fever and chills. Linh tao states she had bowel movement today. I performed an examination of the patient and discussed their management with the Nurse Practitioner. I have reviewed the Nurse Practitioner's notes and ag ree with the documented findings and plan of care Patient Condition at Discharge: Stable Plan - Discharge Summary New Discharge Prescriptions: New Warfarin Sodium [Coumadin] 5 mg PO DAILY 30 Days #30 tablet Potassium Chloride ER [K-Dur 20] 20 meq PO DAILY tab.er.prt Acetaminophen Tab [Tylenol] 650 mg PO Q6HR PRN tab PRN Reason: Fever And/ Or Pain Continue Pravastatin Sodium [Pravachol] 20 mg PO HS Furosemide [Lasix] 80 mg PO QAM Furosemide [Lasix] 40 mg PO DAILY@1400 Aspirin EC [Ecotrin Low Dose] 81 mg PO DAILY Amiodarone [Cordarone] 100 mg PO DAILY Pantoprazole [Protonix] 40 mg PO DAILY tablet. amLODIPine [Norvasc] 5 mg PO DAILY Ergocalciferol (Vitamin D2) [Drisdol] 50,000 unit PO WE Docusate Sodium [Dok] 100 mg PO DAILY Carvedilol [Coreg] 12.5 mg PO BID Discontinued Warfarin Sodium [Coumadin] 4 mg PO MO Warfarin Sodium [Coumadin] 3 mg PO SUTUWETHFRSA Discharge Medication List Pravastatin Sodium [Pravachol] 20 mg PO HS 04/17/15 [History] Amiodarone [Cordarone] 100 mg PO DAILY 07/25/18 [History] Aspirin EC [Ecotrin Low Dose] 81 mg PO DAILY 07/25/18 [History] Furosemide [Lasix] 40 mg PO DAILY@1400 07/25/18 [History] Furosemide [Lasix] 80 mg PO QAM 07/25/18 [History] Pantoprazole [Protonix] 40 mg PO DAILY tablet. 08/03/18 [Rx] Carvedilol [Coreg] 12.5 mg PO BID 03/28/19 [History] Docusate Sodium [Dok] 100 mg PO DAILY 03/28/19 [History] Ergocalciferol (Vitamin D2) [Drisdol] 50,000 unit PO WE 03/28/19 [History] amLODIPine [Norvasc] 5 mg PO DAILY 03/28/19 [History] Acetaminophen Tab [Tylenol] 650 mg PO Q6HR PRN tab 04/04/19 [Rx] Potassium Chloride ER [K-Dur 20] 20 meq PO DAILY tab.er.prt 04/04/19 [Rx] Warfarin Sodium [Coumadin] 5 mg PO DAILY 30 Days #30 tablet 04/04/19 [Rx] Follow up Appointment(s)/Referral(s): Clayton Helton MD [STAFF PHYSICIAN] - 2 Weeks Pauly Sosa MD [Primary Care Provider] - 1-2 days Angelita Thomas MD [STAFF PHYSICIAN] - 1 Week Patient Instructions/Handouts: Heart Failure (DC), Heart Healthy Diet (DC) Activity/Diet/Wound Care/Special Instructions: PT/INR daily until therapeutic Heart healthy diet Activity as tolerated Discharge Disposition: TRANSFER TO SNF/ECF
[2019-04-04 12:53] VITALS: BP 131/63
--- NOTE | 2019-04-04 12:57 | PN ---
PROGRESS NOTE Mrs. Odonnell is status post aortic valve replacement with mechanical valve, hypertension, hyperlipidemia. She came into the hospital with an INR that was 1.1 and she has not been taking Coumadin. INR will be checked today, yesterday it was 1.8. Plan is to increase activity and send her to an extended care facility today. Vitals are stable. S1, S2 heard normally. Prosthetic valve clicks are audible. Lungs reveal decent air entry. Abdomen and lower extremity exam otherwise is unchanged. We will increase activity and send her to extended care facility if INR is more than 2.0. MMODL / IJN: [id number] /
[2019-04-04] MEDS ORDERED: WARFARIN 7.5 MG TAB PO ONE (18:00)
--- NOTE | 2019-04-10 10:58 | CDI ---
Documentation Clarification Form Date: 04/10/2019 10:48:11 AM From: Sabiha Seth Phone: If you have a question about this query, please contact Jonna Ayala Digital Strategy Specialist at [phone] between 8am and 5pm. Admit Date: 03/28/2019 4:54:00 PM Patient Name: Alix Odonnell Visit Number: [id number] Discharge Date: 04/04/2019 2:06:00 PM ATTENTION: The Clinical Documentation Specialists (CDI) and [facility] Coding Staff appreciate your assistance in clarifying documentation. Please respond to the clarification below the line at the bottom and electronically sign. The CDI & [facility] Coding staff will review the response and follow-up if needed. Please note: Queries are made part of the Legal Health Record. If you have any questions, please contact the author of this message via ITS. Dr. Pauly Sosa Patient was admitted with ANÍBAL Creat 1.18 and 1.06 at discharge. GFR 46-53 Please clarify if patient had CKD and if so stage of CKD. History/Risk Factors: ANÍBAL, A/C diastolic CHF HTN Clinical Indicators: Current BUN/CR/GFR: 22 1.18 46 on admit Creat 1.06 at Discharge In order to capture the severity of condition, please clarify if the condition signifies: CKD Stage 1 (GFR > 90) CKD Stage 2 (GFR 60-89) CKD Stage 3 (GFR 30-59) CKD Stage 4 (GFR 15-29) CKD Stage 5 (GFR <15) ESRD Other, please specify Unable to determine CKD stage 4 MTDD
--- NOTE | 2019-04-10 11:14 | CDI ---
Documentation Clarification Form Date: 04/10/2019 10:59:00 AM From: Sabiha Seth Phone: If you have a question about this query, please contact Jonna Ayala Cuff Folder at [phone] Admit Date: 03/28/2019 4:54:00 PM Patient Name: Alix Odonnell Visit Number: [id number] Discharge Date: 04/04/2019 2:06:00 PM ATTENTION: The Clinical Documentation Specialists (CDI) and [facility] Coding Staff appreciate your assistance in clarifying documentation. Please respond to the clarification below the line at the bottom and electronically sign. The CDI & [facility] Coding staff will review the response and follow-up if needed. Please note: Queries are made part of the Legal Health Record. If you have any questions, please contact the author of this message via ITS. Dr. Vijay Liang ACS is documented in the charts and codes to an unspecified Acute Ischemic Heart Disease. Patient presented with elevated troponins, which trended throughout the stay. 0.035, 0.536 and 0.937. Patient complained of SOB, shoulder pain. Patient maintained on ASA, Amiodarone and Cordarone. Patient History/Risk Factors: CHF HTN ARF shoulder pain, SOB Troponin: 0.035, 0.536, 0.93 Treatment: ASA, Amiodarone and Cordarone Consult: Cardiology In order to capture the severity of condition and necessary documentation specificity, please clarify: Acute Demand Ischemia only no NM Type of Infarction: NSTEMI Type 1 NSTEMI Type 2 ACS ruled out CAD with Unstable Agina Unable to determine Other Condition, please specify Unable to determine MTDD
== END 2019-04-04 14:06 | DRG 291 ==
LOC: EC 15:02 → 3SCARD 16:54 → OBSVTOIN 16:54 → 3SCARD 18:18
PROVIDERS: ADMIT Internal Medicine; ATTEND Internal Medicine
DX: I13.0 Hypertensive heart and chronic kidney disease with heart failure and stage 1 through stage 4 chronic kidney disease, or unspecified chronic kidney disease (principal); I50.33 Acute on chronic diastolic (congestive) heart failure; N18.4 Chronic kidney disease, stage 4 (severe); I69.354 Hemiplegia and hemiparesis following cerebral infarction affecting left non-dominant side; I24.9 Acute ischemic heart disease, unspecified; N17.9 Acute kidney failure, unspecified; I48.19 Other persistent atrial fibrillation; I42.8 Other cardiomyopathies; I69.311 Memory deficit following cerebral infarction; I25.10 Atherosclerotic heart disease of native coronary artery without angina pectoris; D50.9 Iron deficiency anemia, unspecified; E78.5 Hyperlipidemia, unspecified; E83.52 Hypercalcemia; K44.9 Diaphragmatic hernia without obstruction or gangrene; E87.6 Hypokalemia; M25.511 Pain in right shoulder; G25.0 Essential tremor; R79.1 Abnormal coagulation profile; Z79.82 Long term (current) use of aspirin; Z79.899 Other long term (current) drug therapy; Z82.49 Family history of ischemic heart disease and other diseases of the circulatory system; Z79.01 Long term (current) use of anticoagulants; Z86.79 Personal history of other diseases of the circulatory system; Z87.442 Personal history of urinary calculi; Z95.2 Presence of prosthetic heart valve; Z95.810 Presence of automatic (implantable) cardiac defibrillator; Z88.0 Allergy status to penicillin; Z60.2 Problems related to living alone; Z87.19 Personal history of other diseases of the digestive system; Z86.14 Personal history of Methicillin resistant Staphylococcus aureus infection
CPT/HCPCS: 36415; 71046; 80053; 82728; 83540; 83550; 83735; 83880; 83970; 84484; 85025; 85610; 85730; 87502; 93005; 93306; 94640; 94760; 96374; 99285

== ENCOUNTER 2019-11-18 03:47 | Inpatient (IN) | payer MEDICARE, OTHER ==
[2019-11-18] MEDS ORDERED: PANTOPRAZOLE 40 MG/10 ML VIAL IVP STA (03:49)
[2019-11-18 04:06] LABS: Basophils # (A) 0.1 k/uL (0-0.2); Basophils % (A) 1 %; Eosinophils # (A) 0.5 k/uL (0-0.7); Eosinophils % (A) 4 %; HCT 41.2 % (34.0-46.0); HGB 12.8 gm/dL (11.4-16.0); Lymphocytes # (A) 0.9 k/uL (1.0-4.8); Lymphocytes % (A) 8 %; MCH 29.9 pg (25.0-35.0); MCHC 31.1 g/dL (31.0-37.0); MCV 96.3 fL (80.0-100.0); Mean Platelet Volume 7.6; Monocytes # (A) 0.2 k/uL (0-1.0); Monocytes % (A) 2 %; Neutrophils % (A) 85 %; Platelet Count 229 k/uL (150-450); RBC 4.28 m/uL (3.80-5.40); RDW 14.4 % (11.5-15.5); WBC 10.7 k/uL (3.8-10.6)
[2019-11-18 04:15] LABS: Albumin 3.6 g/dL (3.5-5.0); Magnesium 2.2 mg/dL (1.6-2.3); Potassium 4.8 mmol/L (3.5-5.1); Total Bilirubin 0.6 mg/dL (0.2-1.3); Total Protein 7.1 g/dL (6.3-8.2)
--- NOTE | 2019-11-18 04:15 | ED ---
General Adult HPI - General Chief complaint: Weakness Stated complaint: Weakness Time Seen by Provider: 11/18/19 03:49 Source: patient, EMS, RN notes reviewed Mode of arrival: EMS Limitations: no limitations, altered mental status - History of Present Illness Initial comments: 74-year-old female presents from home with generalized weakness and fatigue. Patient has past medical history including atrial fibrillation and is currently on Coumadin. She reports dark stools which have been present for the past several days. She's had diarrhea as well. She denies bright red rectal bleeding. She denies fever. She denies abdominal pain. Denies chest pain or dyspnea. Denies dysuria. - Related Data Home Medications Medication Instructions Recorded Confirmed Pravastatin Sodium [Pravachol] 20 mg PO HS 04/17/15 03/28/19 Amiodarone [Cordarone] 100 mg PO DAILY 07/25/18 03/28/19 Aspirin EC [Ecotrin Low Dose] 81 mg PO DAILY 07/25/18 03/28/19 Furosemide [Lasix] 40 mg PO DAILY@1400 07/25/18 03/28/19 Furosemide [Lasix] 80 mg PO QAM 07/25/18 03/28/19 Carvedilol [Coreg] 12.5 mg PO BID 03/28/19 03/28/19 Docusate Sodium [Dok] 100 mg PO DAILY 03/28/19 03/28/19 Ergocalciferol (Vitamin D2) 50,000 unit PO WE 03/28/19 03/28/19 [Drisdol] amLODIPine [Norvasc] 5 mg PO DAILY 03/28/19 03/28/19 Previous Rx's Medication Instructions Recorded Pantoprazole [Protonix] 40 mg PO DAILY tablet.dr 08/03/18 Acetaminophen Tab [Tylenol] 650 mg PO Q6HR PRN tab 04/04/19 Potassium Chloride ER [K-Dur 20] 20 meq PO DAILY tab.er.prt 04/04/19 Warfarin Sodium [Coumadin] 5 mg PO DAILY 30 Days #30 tablet 04/04/19 Allergies Allergy/AdvReac Type Severity Reaction Status Date / Time amoxicillin AdvReac Nausea & Verified 03/28/19 16:05 Vomiting & Diarrhea Penicillins AdvReac Nausea & Verified 03/28/19 16:05 Vomiting & Diarrhea VITAMIN K Allergy Anaphylaxis Uncoded 03/28/19 15:11 Review of Systems ROS Statement: Those systems with pertinent positive or pertinent negative responses have been documented in the HPI. ROS Other: All systems not noted in ROS Statement are negative. 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 Diverticulitis History of Any Multi-Drug Resistant Organisms: None Reported Past Surgical History: Back Surgery, Heart Catheterization, Pacemaker Additional Past Surgical History / Comment(s): 1998 aortic disection repair, three aneurysm ascending and descending aorta, aortic valve replacement(MECHANICAL VALVE), CYST AT END OF SPINE REMOVED. CARDIAC CATHETERIZATION WHICH WAS NORMAL. biventricular pacer placed in 08/2014 - pacer is on right side of chest - physician unable to get into left Past Anesthesia/Blood Transfusion Reactions: No Reported Reaction Type of Cardiac Device: Biventricular Pacemaker Device Placement Date:: 08/2014 Past Psychological History: No Psychological Hx Reported Smoking Status: Never smoker Past Alcohol Use History: None Reported Past Drug Use History: None Reported - Past Family History Father History Unknown: Yes Family Medical History: AFIB, Congestive Heart Failure (CHF) Additional Family Medical History / Comment(s): FATHER AT AGE 73 OF CHF. Mother History Unknown: Yes Additional Family Medical History / Comment(s): MOTHER AT AGE 78 OF SEPTIC SHOCK UNKNOWN SOURCE. General Exam Limitations: no limitations General appearance: lethargic Head exam: Present: atraumatic, normocephalic Eye exam: Present: normal appearance, PERRL, EOMI ENT exam: Present: mucous membranes dry Neck exam: Present: normal inspection Respiratory exam: Present: normal lung sounds bilaterally. Absent: respiratory distress, wheezes Cardiovascular Exam: Present: regular rate, normal rhythm GI/Abdominal exam: Present: soft. Absent: distended, tenderness, guarding, rebound Rectal exam: Present: black stool Extremities exam: Present: normal inspection, normal capillary refill. Absent: pedal edema Back exam: Present: normal inspection Neurological exam: Present: alert, CN II-XII intact. Absent: motor sensory deficit Skin exam: Present: warm, dry, intact. Absent: cyanosis, diaphoretic Course Vital Signs 11/18/19 11/18/19 11/18/19 03:48 03:56 04:00 Temperature 94.7 F L 98 F Pulse Rate 60 60 Respiratory 16 16 Rate Blood Pressure 60/27 84/63 O2 Sat by Pulse 98 98 Oximetry 11/18/19 11/18/19 04:12 04:34 Temperature Pulse Rate 60 60 Respiratory 16 16 Rate Blood Pressure 120/50 66/27 O2 Sat by Pulse 98 99 Oximetry EKG Findings - EKG Comments: EKG Findings:: Atrial paced rhythm with prolonged conduction, rate of 60, UT interval 304, QRS duration 88, QTC 414 Medical Decision Making - Medical Decision Making 74-year-old female had presented by EMS with generalized weakness, dark stool, and hypotension. She was hypotensive during transport by EMS and initially hypotensive in the emergency department. She does respond IV hydration. She is on Coumadin however her INR is subtherapeutic at 1.2. She has a stable he moglobin. Her dark stool is heme positive. No bright red rectal bleeding. She started on proton pump inhibitor and will be admitted for serial hemoglobin testing, close monitoring, GI consultation. - Lab Data Result diagrams: 11/18/19 03:55 11/18/19 03:55 Lab Results 11/18/19 11/18/19 11/18/19 Range/Units 03:55 03:55 03:55 WBC 10.7 H (3.8-10.6) k/uL RBC 4.28 (3.80-5.40) m/uL Hgb 12.8 (11.4-16.0) gm/dL Hct 41.2 (34.0-46.0) % MCV 96.3 (80.0-100.0) fL MCH 29.9 (25.0-35.0) pg MCHC 31.1 (31.0-37.0) g/dL RDW 14.4 (11.5-15.5) % Plt Count 229 (150-450) k/uL Neutrophils % 85 % Lymphocytes % 8 % Monocytes % 2 % Eosinophils % 4 % Basophils % 1 % Neutrophils # 9.0 H (1.3-7.7) k/uL Lymphocytes # 0.9 L (1.0-4.8) k/uL Monocytes # 0.2 (0-1.0) k/uL Eosinophils # 0.5 (0-0.7) k/uL Basophils # 0.1 (0-0.2) k/uL PT 12.2 H (9.0-12.0) sec INR 1.2 H (<1.2) APTT 22.7 (22.0-30.0) sec Sodium 135 L (137-145) mmol/L Potassium 4.8 (3.5-5.1) mmol/L Chloride 106 (98-107) mmol/L Carbon Dioxide 22 (22-30) mmol/L Anion Gap 7 mmol/L BUN 37 H (7-17) mg/dL Creatinine 1.76 H (0.52-1.04) mg/dL Est GFR (CKD-EPI)AfAm 33 (>60 ml/min/1.73 sqM) Est GFR (CKD-EPI)NonAf 28 (>60 ml/min/1.73 sqM) Glucose 134 H (74-99) mg/dL Plasma Lactic Acid Jimy (0.7-2.0) mmol/L Calcium 11.0 H (8.4-10.2) mg/dL Magnesium 2.2 (1.6-2.3) mg/dL Total Bilirubin 0.6 (0.2-1.3) mg/dL AST 23 (14-36) U/L ALT 13 (4-34) U/L Alkaline Phosphatase 150 H (38-126) U/L Total Protein 7.1 (6.3-8.2) g/dL Albumin 3.6 (3.5-5.0) g/dL Urine Color Urine Appearance (Clear) Urine pH (5.0-8.0) Ur Specific [place] (1.001-1.035) Urine Protein (Negative) Urine Glucose (UA) (Negative) Urine Ketones (Negative) Urine Blood (Negative) Urine Nitrite (Negative) Urine Bilirubin (Negative) Urine Urobilinogen (<2.0) mg/dL Ur Leukocyte Esterase (Negative) Urine RBC (0-5) /hpf Urine WBC (0-5) /hpf Ur Squamous Epith Cells (0-4) /hpf Urine Bacteria (None) /hpf Hyaline Casts (0-2) /lpf Urine Mucus (None) /hpf Stool Occult Blood (Negative) 11/18/19 11/18/19 11/18/19 Range/Units 03:55 04:08 04:12 WBC (3.8-10.6) k/uL RBC (3.80-5.40) m/uL Hgb (11.4-16.0) gm/dL Hct (34.0-46.0) % MCV (80.0-100.0) fL MCH (25.0-35.0) pg MCHC (31.0-37.0) g/dL RDW (11.5-15.5) % Plt Count (150-450) k/uL Neutrophils % % Lymphocytes % % Monocytes % % Eosinophils % % Basophils % % Neutrophils # (1.3-7.7) k/uL Lymphocytes # (1.0-4.8) k/uL Monocytes # (0-1.0) k/uL Eosinophils # (0-0.7) k/uL Basophils # (0-0.2) k/uL PT (9.0-12.0) sec INR (<1.2) APTT (22.0-30.0) sec Sodium (137-145) mmol/L Potassium (3.5-5.1) mmol/L Chloride (98-107) mmol/L Carbon Dioxide (22-30) mmol/L Anion Gap mmol/L BUN (7-17) mg/dL Creatinine (0.52-1.04) mg/dL Est GFR (CKD-EPI)AfAm (>60 ml/min/1.73 sqM) Est GFR (CKD-EPI)NonAf (>60 ml/min/1.73 sqM) Glucose (74-99) mg/dL Plasma Lactic Acid Jiym 2.2 H* (0.7-2.0) mmol/L Calcium (8.4-10.2) mg/dL Magnesium (1.6-2.3) mg/dL Total Bilirubin (0.2-1.3) mg/dL AST (14-36) U/L ALT (4-34) U/L Alkaline Phosphatase (38-126) U/L Total Protein (6.3-8.2) g/dL Albumin (3.5-5.0) g/dL Urine Color Yellow Urine Appearance Clear (Clear) Urine pH 5.0 (5.0-8.0) Ur Specific [place] 1.016 (1.001-1.035) Urine Protein Trace H (Negative) Urine Glucose (UA) Negative (Negative) Urine Ketones Negative (Negative) Urine Blood Negative (Negative) Urine Nitrite Negative (Negative) Urine Bilirubin Negative (Negative) Urine Urobilinogen <2.0 (<2.0) mg/dL Ur Leukocyte Esterase Small H (Negative) Urine RBC <1 (0-5) /hpf Urine WBC 1 (0-5) /hpf Ur Squamous Epith Cells <1 (0-4) /hpf Urine Bacteria Rare H (None) /hpf Hyaline Casts 6 H (0-2) /lpf Urine Mucus Rare H (None) /hpf Stool Occult Blood Positive H (Negative) Critical Care Time Critical Care Time: Yes Total Critical Care Time: 35 Disposition Clinical Impression: GI bleed, Dehydration, ANÍBAL (acute kidney injury) Disposition: ADMITTED IP TO THIS [facility] Condition: Stable Is patient prescribed a controlled substance at d/c from ED?: No Referrals: Pauly Sosa MD [Primary Care Provider] - 1-2 days Decision to Admit Reason: Admit from EC Decision Date: 11/18/19 Decision Time: 04:39
[2019-11-18] MEDS ORDERED: ONDANSETRON 4 MG/2 ML VIAL IVP STA (04:19)
[2019-11-18 04:21] LABS: Appearance,Urine Clear (Clear); Bacteria,Urine Rare /hpf; Bilirubin,Urine Negative (Negative); Blood,Urine Negative (Negative); Color,Urine Yellow; Glucose,Urine (UA) Negative (Negative); Hyaline Casts,Urine 6 /lpf (0-2); Ketones,Urine Negative (Negative); Leukocyte Esterase,Urine Small (Negative); Mucus,Urine Rare /hpf; Nitrite,Urine Negative (Negative); Protein,Urine Trace (Negative); RBC,Urine <1 /hpf (0-5); Specific Gravity,Urine 1.016 (1.001-1.035); Squamous Epithelial Cell,Urine <1 /hpf (0-4); Urobilinogen,Urine <2.0 mg/dL (<2.0); WBC,Urine 1 /hpf (0-5)
[2019-11-18 04:25] LABS: INR 1.2 (<1.2); Partial Thromboplastin Time 22.7 sec (22.0-30.0); Prothrombin Time 12.2 sec (9.0-12.0)
[2019-11-18] MEDS ORDERED: SODIUM CHLORIDE 0.9% 500 ML 500 ML IV ONE ×2 (04:28→06:33)
[2019-11-18] MEDS: SODIUM CHLORIDE 0.9% 1,000 ML IV SCH ×2 (04:29→16:03)
[2019-11-18] MEDS ORDERED: NALOXONE 0.4 MG/ML 1 ML VIAL IV PRN (04:35)
[2019-11-18] MEDS ORDERED: ACETAMINOPHEN TAB 325 MG TAB PO PRN ×2 (04:35→10:57)
--- NOTE | 2019-11-18 04:45 | XR ---
EXAMINATION TYPE: XR chest 1V portable DATE OF EXAM: 11/18/2019 COMPARISON: 03/28/2019 HISTORY: Chest pain TECHNIQUE: Single view FINDINGS: There is no heart failure nor confluent pneumonic infiltrate. There is slight blunting left costophrenic angle. There are sternal wires. There is a right axillary pacemaker. There is old left humeral neck fracture. IMPRESSION: There is probably some pleural diaphragmatic scarring left lung base unchanged. No heart failure.
--- NOTE | 2019-11-18 05:25 | CT ---
EXAMINATION TYPE: CT abdomen pelvis wo con DATE OF EXAM: 11/18/2019 COMPARISON: 07/25/2018 HISTORY: ABD PAIN CT DLP: 758.80 mGycm Automated exposure control for dose reduction was used. Images obtained from the diaphragm to the floor the pelvis with no contrast. There is some minimal at electasis left lung base. Heart appears enlarged. There is no pleural effusion. There is no pericardi al effusion. There is small amount of air in the anterior biliary tree. Gallbladder has normal size. Bile ducts are not dilated. Spleen is intact. Stomach is intact. There is no evidence of pancreatic m ass. Abdominal aorta is atheromatous. There is mild aneurysm of the abdominal aorta extending into the may ac arteries that measures up to 3 cm. There is no retroperitoneal adenopathy. Kidneys have normal siz e. There is no hydronephrosis. There are multiple calculi in left kidney that measure up to 1 cm. The re is 3 cm cortical cyst lower pole right kidney. Ureters are not dilated. There is mild free fluid in the pelvis. Bladder distends smoothly. There is mild wall thickening of t he sigmoid colon. There are multiple sigmoid diverticula. Appendix appears normal. There is no free air. There is no sign of a bowel obstruction. There is no ascites. There are spondyl otic changes at multiple levels of the lumbar spine. There is no compression fracture. The bony pelvi s is intact. There is symmetric hip joint osteoarthritis. There is mild lumbar levoscoliosis. IMPRESSION: Mild free fluid in the pelvis unchanged. Inflammatory changes of the sigmoid colon consistent with co litis or diverticulitis. This appears similar to old exam. No bowel obstruction. No free air. Nonobstructing multiple left renal calculi. Unchanged. Biliary air is a change compared to old exam and consistent with surgery.
[2019-11-18] MEDS ORDERED: LEVOFLOXACIN 500MG-D5W PMX 500 MG in DEXTROSE/WATER 1 100ML.BAG IVPB STA (05:28)
[2019-11-18] MEDS ORDERED: metroNIDAZOLE-NS PMX 500 MG in SALINE 1 100ML.BAG IVPB STA (05:28)
[2019-11-18] MEDS ORDERED: SODIUM CHLORIDE 0.9% 1,000 ML IV ONE (05:40)
[2019-11-18] MEDS ORDERED: NOREPINEPHRINE 8 MG in SODIUM CHLORIDE 0.9% 250 ML IV ONE (06:33)
[2019-11-18 06:56] LABS: Basophils % (A) 0 %; Eosinophils # (A) 0.2 k/uL (0-0.7); Eosinophils % (A) 2 %; HCT 36.9 % (34.0-46.0); Hypochromasia Slight; Lymphocytes # (A) 0.5 k/uL (1.0-4.8); Lymphocytes % (A) 6 %; MCH 31.9 pg (25.0-35.0); MCHC 32.4 g/dL (31.0-37.0); MCV 98.3 fL (80.0-100.0); Mean Platelet Volume 7.6; Monocytes # (A) 0.4 k/uL (0-1.0); Monocytes % (A) 5 %; Neutrophils % (A) 87 %; Platelet Count 171 k/uL (150-450); RBC 3.75 m/uL (3.80-5.40); RDW 14.8 % (11.5-15.5); WBC 8.1 k/uL (3.8-10.6)
[2019-11-18 06:57] LABS: Calcium 9.6 mg/dL (8.4-10.2); Potassium 4.4 mmol/L (3.5-5.1)
[2019-11-18 07:09] LABS: INR 1.3 (<1.2); Partial Thromboplastin Time 22.4 sec (22.0-30.0); Prothrombin Time 12.7 sec (9.0-12.0)
[2019-11-18 07:41] LABS: Glucose,Whole Blood 140 mg/dL (75-99)
[2019-11-18 08:13] LABS: Basophils % (A) 0 %; Eosinophils # (A) 0.1 k/uL (0-0.7); Eosinophils % (A) 1 %; HCT 38.5 % (34.0-46.0); HGB 12.3 gm/dL (11.4-16.0); Hypochromasia Slight; Lymphocytes # (A) 0.6 k/uL (1.0-4.8); Lymphocytes % (A) 5 %; MCH 31.4 pg (25.0-35.0); MCV 98.3 fL (80.0-100.0); Mean Platelet Volume 7.5; Monocytes # (A) 0.5 k/uL (0-1.0); Monocytes % (A) 4 %; Neutrophils % (A) 88 %; Platelet Count 204 k/uL (150-450); RBC 3.91 m/uL (3.80-5.40); RDW 14.7 % (11.5-15.5); WBC 11.4 k/uL (3.8-10.6)
[2019-11-18 08:28] LABS: Poikilocytosis (M) Present
[2019-11-18] MEDS: PANTOPRAZOLE 40 MG/10 ML VIAL IVP SCH ×2 (08:49→21:41)
[2019-11-18] MEDS ORDERED: DOCUSATE 100 MG CAP PO PRN (10:57)
--- NOTE | 2019-11-18 10:59 | P.HPIM ---
History of Present Illness H&P Date: 11/18/19 Chief Complaint: Dizziness Alix Odonnell, is a 74-year-old female who was at her home sitting on the toilet when she felt very weak and dizzy, she was unable to stand up, she managed to call EMS who came to her home and helped her up her toilet seat she stated that they told her that there was blood in the toilet, patient was brought in to [facility] emergency room she was evaluated by Dr. Carlos hemoglobin was 12 Stool Hemoccult was positive BUN and creatinine was elevated at 39 and 1.6 patient has a known history of mechanical valve she is maintained on Coumadin, her INR on presentation was low at 1.3. Computed tomography scan of abdomen and pelvis without contrast was done in the emergency room and revealed evidence of sigmoid colon inflammatory changes suggestive of colitis or diverticulitis she was started on IV antibiotics Levaquin and Flagyl in the emergency room. Patient was admitted to intensive care unit, cardiology consultation gastroenterology consultation and critical care consultations were requested. Patient was seen and examined in ICU she is alert and oriented 3 in no apparent distress she is complaining of generalized weakness otherwise she denies any complaints there is no fever or chills no headache or dizziness no chest pain no shortness of breath no cough no nausea or vomiting no abdominal pain no diarrhea no burning with urination no frequency or urgency and no hematuria. Her past medical history is significant for chronic systolic congestive heart failure, chronic kidney disease stage III, history of atrial fibrillation, history of stroke with residual left sided weakness, history of aortic mechanical valve replacement, maintained on Coumadin, remote history of abdominal aortic dissection and repair. 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 Diverticulitis History of Any Multi-Drug Resistant Organisms: None Reported Past Surgical History: Back Surgery, Heart Catheterization, Pacemaker Additional Past Surgical History / Comment(s): 1998 aortic disection repair, three aneurysm ascending and descending aorta, aortic valve replacement(MECHANICAL VALVE), CYST AT END OF SPINE REMOVED. CARDIAC CATHETERIZATION WHICH WAS NORMAL. biventricular pacer placed in 08/2014 - pacer is on right side of chest - physician unable to get into left Past Anesthesia/Blood Transfusion Reactions: No Reported Reaction Type of Cardiac Device: Biventricular Pacemaker Device Placement Date:: 08/2014 Smoking Status: Never smoker - Past Family History Father History Unknown: Yes Family Medical History: AFIB, Congestive Heart Failure (CHF) Additional Family Medical History / Comment(s): FATHER AT AGE 73 OF CHF. Mother History Unknown: Yes Additional Family Medical History / Comment(s): MOTHER AT AGE 78 OF SEPTIC SHOCK UNKNOWN SOURCE. Medications and Allergies Home Medications Medication Instructions Recorded Confirmed Type Pravastatin Sodium [Pravachol] 20 mg PO HS 04/17/15 11/18/19 History Amiodarone [Cordarone] 100 mg PO DAILY 07/25/18 11/18/19 History Aspirin EC [Ecotrin Low Dose] 81 mg PO DAILY 07/25/18 11/18/19 History Furosemide [Lasix] 80 mg PO QAM 07/25/18 11/18/19 History Pantoprazole [Protonix] 40 mg PO DAILY tablet. 08/03/18 11/18/19 Rx Carvedilol [Coreg] 12.5 mg PO BID 03/28/19 11/18/19 History Docusate Sodium [Dok] 100 mg PO DAILY PRN 03/28/19 11/18/19 History Acetaminophen Tab [Tylenol] 650 mg PO Q6HR PRN tab 04/04/19 11/18/19 Rx Lisinopril [Zestril] 10 mg PO DAILY 11/18/19 11/18/19 History Spironolactone [Aldactone] 25 mg PO DAILY 11/18/19 11/18/19 History Warfarin Sodium [Coumadin] 5 mg PO MOTUWETHFRSA 11/18/19 11/18/19 History Allergies Allergy/AdvReac Type Severity Reaction Status Date / Time amoxicillin AdvReac Nausea & Verified 11/18/19 07:14 Vomiting & Diarrhea levofloxacin [From Levaquin] AdvReac Rash/Hives Verified 11/18/19 07:14 Penicillins AdvReac Nausea & Verified 11/18/19 07:14 Vomiting & Diarrhea VITAMIN K Allergy Anaphylaxis Uncoded 03/28/19 15:11 Physical Exam Vitals: Vital Signs Temp Pulse Resp BP Pulse Ox 11/18/19 09:00 60 6 L 110/43 95 11/18/19 08:45 59 L 6 L 103/39 95 11/18/19 08:30 60 15 114/46 94 L 11/18/19 08:00 64 159/54 11/18/19 07:30 98.3 F 62 18 125/47 94 L 11/18/19 07:16 60 16 125/47 98 11/18/19 07:00 60 16 133/53 98 11/18/19 06:45 59 L 16 113/43 98 11/18/19 05:45 59 L 16 85/38 98 11/18/19 05:30 59 L 16 71/45 99 11/18/19 05:15 60 16 87/37 98 11/18/19 04:45 60 16 71/22 99 11/18/19 04:34 60 16 66/27 99 11/18/19 04:12 60 16 120/50 98 11/18/19 04:00 98 F 11/18/19 03:56 60 16 84/63 98 11/18/19 03:48 94.7 F L 60 16 60/27 98 Intake and Output 11/17/19 11/18/19 11/18/19 22:59 06:59 14:59 Intake Total 75 Output Total 75 Balance 0 Intake: IV 75 Sodium Chloride 0.9% 1, 75 000 ml @ 75 mls/hr IV . [id number] [facility] Rx#:[id number] Output: Urine 75 Other: Voiding Method Indwelling Catheter Weight 80.286 kg 80.286 kg In general patient is alert and oriented 3 in no apparent distress HEENT head normocephalic and atraumatic Neck is supple no JVD no goiter no lymphadenopathy Chest exam reveals a few scattered rhonchi no wheezing Cardiac exam reveals regular heart sounds S1 and S2, with accentuated S2 and 3/6 systolic murmur in the left sternal border Abdomen is soft nontender no organomegaly with normal bowel sounds Extremity exam reveals no edema no cyanosis or clubbing Neurological examination reveals no acute gross deficit, chronic mild left sided weakness as compared to the right Results CBC & Chem 7: 11/18/19 07:45 11/18/19 06:38 Labs: Abnormal Lab Results - Last 24 Hours (Table) 11/18/19 11/18/19 11/18/19 Range/Units 03:55 03:55 03:55 WBC 10.7 H (3.8-10.6) k/uL RBC (3.80-5.40) m/uL Neutrophils # 9.0 H (1.3-7.7) k/uL Lymphocytes # 0.9 L (1.0-4.8) k/uL PT 12.2 H (9.0-12.0) sec INR 1.2 H (<1.2) Sodium (137-145) mmol/L Chloride (98-107) mmol/L Carbon Dioxide (22-30) mmol/L BUN (7-17) mg/dL Creatinine (0.52-1.04) mg/dL Glucose (74-99) mg/dL POC Glucose (mg/dL) (75-99) mg/dL Plasma Lactic Acid Jimy (0.7-2.0) mmol/L Calcium (8.4-10.2) mg/dL Alkaline Phosphatase (38-126) U/L Urine Protein (Negative) Ur Leukocyte Esterase (Negative) Urine Bacteria (None) /hpf Hyaline Casts (0-2) /lpf Urine Mucus (None) /hpf Stool Occult Blood (Negative) Crossmatch See Detail 11/18/19 11/18/19 11/18/19 Range/Units 03:55 03:55 04:08 WBC (3.8-10.6) k/uL RBC (3.80-5.40) m/uL Neutrophils # (1.3-7.7) k/uL Lymphocytes # (1.0-4.8) k/uL PT (9.0-12.0) sec INR (<1.2) Sodium 135 L (137-145) mmol/L Chloride (98-107) mmol/L Carbon Dioxide (22-30) mmol/L BUN 37 H (7-17) mg/dL Creatinine 1.76 H (0.52-1.04) mg/dL Glucose 134 H (74-99) mg/dL POC Glucose (mg/dL) (75-99) mg/dL Plasma Lactic Acid Jimy 2.2 H* (0.7-2.0) mmol/L Calcium 11.0 H (8.4-10.2) mg/dL Alkaline Phosphatase 150 H (38-126) U/L Urine Protein Trace H (Negative) Ur Leukocyte Esterase Small H (Negative) Urine Bacteria Rare H (None) /hpf Hyaline Casts 6 H (0-2) /lpf Urine Mucus Rare H (None) /hpf Stool Occult Blood (Negative) Crossmatch 11/18/19 11/18/19 11/18/19 Range/Units 04:12 06:38 06:38 WBC (3.8-10.6) k/uL RBC 3.75 L (3.80-5.40) m/uL Neutrophils # (1.3-7.7) k/uL Lymphocytes # 0.5 L (1.0-4.8) k/uL PT 12.7 H (9.0-12.0) sec INR 1.3 H (<1.2) Sodium (137-145) mmol/L Chloride (98-107) mmol/L Carbon Dioxide (22-30) mmol/L BUN (7-17) mg/dL Creatinine (0.52-1.04) mg/dL Glucose (74-99) mg/dL POC Glucose (mg/dL) (75-99) mg/dL Plasma Lactic Acid Jimy (0.7-2.0) mmol/L Calcium (8.4-10.2) mg/dL Alkaline Phosphatase (38-126) U/L Urine Protein (Negative) Ur Leukocyte Esterase (Negative) Urine Bacteria (None) /hpf Hyaline Casts (0-2) /lpf Urine Mucus (None) /hpf Stool Occult Blood Positive H (Negative) Crossmatch 11/18/19 11/18/19 11/18/19 Range/Units 06:38 07:39 07:45 WBC 11.4 H (3.8-10.6) k/uL RBC (3.80-5.40) m/uL Neutrophils # 10.0 H (1.3-7.7) k/uL Lymphocytes # 0.6 L (1.0-4.8) k/uL PT (9.0-12.0) sec INR (<1.2) Sodium 136 L (137-145) mmol/L Chloride 112 H (98-107) mmol/L Carbon Dioxide 19 L (22-30) mmol/L BUN 39 H (7-17) mg/dL Creatinine 1.60 H (0.52-1.04) mg/dL Glucose 131 H (74-99) mg/dL POC Glucose (mg/dL) 140 H (75-99) mg/dL Plasma Lactic Acid Jimy (0.7-2.0) mmol/L Calcium (8.4-10.2) mg/dL Alkaline Phosphatase (38-126) U/L Urine Protein (Negative) Ur Leukocyte Esterase (Negative) Urine Bacteria (None) /hpf Hyaline Casts (0-2) /lpf Urine Mucus (None) /hpf Stool Occult Blood (Negative) Crossmatch Thrombosis Risk Factor Assmnt - Choose All That Apply Any of the Below Risk Factors Present?: Yes Each Risk Factor Represents 2 Points: Age 61-74 years Thrombosis Risk Factor Assessment Total Risk Factor Score: 2 Thrombosis Risk Factor Assessment Level: Low Risk Assessment and Plan Plan: 1. Generalized weakness, likely related to dehydration 2. Rectal bleeding 3. Underlying history of congestive heart failure with cardiomyopathy 4. Underlying history of mechanical aortic valve replacement maintained on Coumadin 5. Underlying history of atrial fibrillation 6. Remote history of stroke 7. Evidence of colitis versus diverticulitis on computed tomography scan of the abdomen in the sigmoid colon patient was started on IV antibiotic Levaquin and Flagyl, will continue at this time. 8. Underlying history of chronic kidney disease stage III Will monitor CBC closely Patient is admitted to intensive care unit pulmonary critical care consultation requested in the emergency room, cardiology and gastroenterology consultation requested. I reviewed and reordered home medications. Cardiology and gastroenterology to decide in regard to anticoagulation and aspirin use Prognosis is guarded due to severity of illness, and the presence of gastrointestinal bleeding in the face of need to use anticoagulation.
[2019-11-18] MEDS ORDERED: CARVEDILOL 12.5 MG TAB PO SCH (11:00)
[2019-11-18] MEDS: AMIODARONE 100 MG TAB PO SCH (11:42)
[2019-11-18] MEDS ORDERED: ONDANSETRON 4 MG/2 ML VIAL IVP PRN (13:08)
--- NOTE | 2019-11-18 13:30 | P.CNPUL ---
History of Present Illness Consult date: 11/18/19 Requesting physician: Pauly Sosa Reason for consult: other (GI bleeding) Chief complaint: Dizziness. History of present illness: This is a 74-year-old female with history of multiple medical problems including chronic atrial fibrillation, history of aortic valve replacement with mechanical aortic valve. Patient is maintained on Coumadin. She is also known to have history of underlying congestive heart failure, cardiomyopathy and LV dysfunction. Patient presented to the ER last night with mostly symptoms of dizziness and weakness. Patient also noted some blood in her toilet. Upon sydnee luation in the ER, patient was noted to have a hemoglobin of 12, she had positive stool for Hemoccult. And she was noted to have elevated BUN and creatinine 59 and 1.6 respectively. Her INR was actually subtherapeutic although the patient was on Coumadin. CT of the abdomen and pelvis was done and it showed mostly sigmoid inflammatory changes. Suggestive of colitis or diverticulitis. Patient was placed on antibiotics in the form of Levaquin and Flagyl. While in the ER, the patient was noted to have marginally low blood pressure. Hence arrangements were made to admit the patient to the intensive care unit. Patient was seen by many consultants since admission including cardiology, gastroenterology, and presently her Coumadin is on hold. She was told by gastroenterology that she would have EGD tomorrow. Since admission, the patient did not require any blood transfusion, and her hemoglobin this morning is 12.3. Patient is receiving fluid in the form of 0.9 normal saline at 75 mL/h and she is noted to be clinically dehydrated. She is also on norepinephrine at 4 mcg/m. Patient continues to have some maroon colored stools since admission. And intermittent episodes of diarrhea. Review of Systems Constitutional: Weakness, fatigue. Denies any fever or chills. HEENT: Negative. Pulmonary: Denies any shortness of breath cough or wheezing. Cardiac: History of aortic valve replacement cardiomyopathy, LV dysfunction with ejection fraction of 40%. Patient is complaining of generalized weakness, no orthopnea, no PND. GI: As noted in HPI, mostly episodes of diarrhea, and GI bleeding. Genitourinary: Negative. Musculoskeletal: Negative. Neurologic: Dizziness otherwise no headache no syncope. Psychiatric: Denies any symptoms of active depression. Hematologic: As noted in HPI. Patient is supposedly on Coumadin but her INR is subtherapeutic. Patient is known to have history of chronic anemia. Skin: No rashes, no pruritus, Endocrine: Denies any weight or cold intolerance. 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 Diverticulitis History of Any Multi-Drug Resistant Organisms: None Reported Past Surgical History: Back Surgery, Heart Catheterization, Pacemaker Additional Past Surgical History / Comment(s): 1998 aortic disection repair, three aneurysm ascending and descending aorta, aortic valve replaceme nt(MECHANICAL VALVE), CYST AT END OF SPINE REMOVED. CARDIAC CATHETERIZATION WHICH WAS NORMAL. biventricular pacer placed in 08/2014 - pacer is on right side of chest - physician unable to get into left Past Anesthesia/Blood Transfusion Reactions: No Reported Reaction Type of Cardiac Device: Biventricular Pacemaker Device Placement Date:: 08/2014 Smoking Status: Never smoker - Past Family History Father History Unknown: Yes Family Medical History: AFIB, Congestive Heart Failure (CHF) Additional Family Medical History / Comment(s): FATHER AT AGE 73 OF CHF. Mother History Unknown: Yes Additional Family Medical History / Comment(s): MOTHER AT AGE 78 OF SEPTIC SHOCK UNKNOWN SOURCE. Medications and Allergies Home Medications Medication Instructions Recorded Confirmed Type Pravastatin Sodium [Pravachol] 20 mg PO HS 04/17/15 11/18/19 History Amiodarone [Cordarone] 100 mg PO DAILY 07/25/18 11/18/19 History Aspirin EC [Ecotrin Low Dose] 81 mg PO DAILY 07/25/18 11/18/19 History Furosemide [Lasix] 80 mg PO QAM 07/25/18 11/18/19 History Pantoprazole [Protonix] 40 mg PO DAILY tablet. 08/03/18 11/18/19 Rx Carvedilol [Coreg] 12.5 mg PO BID 03/28/19 11/18/19 History Docusate Sodium [Dok] 100 mg PO DAILY PRN 03/28/19 11/18/19 History Acetaminophen Tab [Tylenol] 650 mg PO Q6HR PRN tab 04/04/19 11/18/19 Rx Lisinopril [Zestril] 10 mg PO DAILY 11/18/19 11/18/19 History Spironolactone [Aldactone] 25 mg PO DAILY 11/18/19 11/18/19 History Warfarin Sodium [Coumadin] 5 mg PO MOTUWETHFRSA 11/18/19 11/18/19 History Allergies Allergy/AdvReac Type Severity Reaction Status Date / Time amoxicillin AdvReac Nausea & Verified 11/18/19 07:14 Vomiting & Diarrhea levofloxacin [From Levaquin] AdvReac Rash/Hives Verified 11/18/19 07:14 Penicillins AdvReac Nausea & Verified 11/18/19 07:14 Vomiting & Diarrhea vitamin K medications AdvReac Unknown Uncoded 11/18/19 11:44 Physical Exam Vitals: Vital Signs Temp Pulse Resp BP Pulse Ox 11/18/19 10:30 60 17 88/34 96 11/18/19 10:15 60 12 109/51 95 11/18/19 10:00 60 15 119/103 96 11/18/19 09:45 67 28 H 115/42 97 11/18/19 09:30 60 12 110/42 95 11/18/19 09:15 60 10 L 103/45 96 11/18/19 09:00 60 6 L 110/43 95 11/18/19 08:45 59 L 6 L 103/39 95 11/18/19 08:30 60 15 114/46 94 L 11/18/19 08:00 64 159/54 11/18/19 07:30 98.3 F 62 18 125/47 94 L 11/18/19 07:16 60 16 125/47 98 11/18/19 07:00 60 16 133/53 98 11/18/19 06:45 59 L 16 113/43 98 11/18/19 05:45 59 L 16 85/38 98 11/18/19 05:30 59 L 16 71/45 99 11/18/19 05:15 60 16 87/37 98 11/18/19 04:45 60 16 /22 99 11/18/19 04:34 60 16 66/27 99 11/18/19 04:12 60 16 120/50 98 11/18/19 04:00 98 F 11/18/19 03:56 60 16 84/63 98 11/18/19 03:48 94.7 F L 60 16 60/27 98 Intake and Output 11/17/19 11/18/19 11/18/19 22:59 06:59 14:59 Intake Total 375 Output Total 210 Balance 165 Intake: IV 375 Sodium Chloride 0.9% 1, 375 000 ml @ 100 mls/hr IV . Q10H [facility] Rx#:[id number] Output: Urine 210 Other: Voiding Method Indwelling Catheter Weight 80.286 kg 80.286 kg Physical Exam: Revealed a 74-year-old female, in no distress. Patient is on room air. Head: Atraumatic, normocephalic. HEENT: PERRLA, EOMI, no icterus. [Neck is supple.] [No neck masses.] [No thyromegaly.] [No JVD.] Chest: [Symmetrical chest expansion, diminished breath sounds at the bases minimal crackles at the bases. No wheezes. Cardiac Exam: [Normal S1 and S2, positive mechanical valve sound. In the right parasternal area, over aortic valve 2/6 systolic murmur in the left lower sternal border. Abdomen: [Soft, nontender, no megaly, no rebound, no guarding, normal bowel sounds.] Extremities: [No clubbing, no edema, no cyanosis.] Neurological Exam: [No focal neurologic deficit.] Alert and oriented 3, no gross focal neurologic deficits. Psychiatric: Normal mood affect and normal mental status examination. Skin: No rashes. Lymphatics: No lymphadenopathy. Results - Laboratory Findings CBC and BMP: 11/18/19 07:45 11/18/19 06:38 PT/INR, D-dimer PT 12.7 sec (9.0-12.0) H 11/18/19 06:38 INR 1.3 (<1.2) H 11/18/19 06:38 Abnormal lab findings: Abnormal Labs 11/18/19 11/18/19 11/18/19 03:55 03:55 03:55 WBC 10.7 H RBC Neutrophils # 9.0 H Lymphocytes # 0.9 L PT 12.2 H INR 1.2 H Sodium Chloride Carbon Dioxide BUN Creatinine Glucose POC Glucose (mg/dL) Plasma Lactic Acid Jimy Calcium Alkaline Phosphatase Urine Protein Ur Leukocyte Esterase Urine Bacteria Hyaline Casts Urine Mucus Stool Occult Blood Crossmatch See Detail 11/18/19 11/18/19 11/18/19 03:55 03:55 04:08 WBC RBC Neutrophils # Lymphocytes # PT INR Sodium 135 L Chloride Carbon Dioxide BUN 37 H Creatinine 1.76 H Glucose 134 H POC Glucose (mg/dL) Plasma Lactic Acid Jimy 2.2 H* Calcium 11.0 H Alkaline Phosphatase 150 H Urine Protein Trace H Ur Leukocyte Esterase Small H Urine Bacteria Rare H Hyaline Casts 6 H Urine Mucus Rare H Stool Occult Blood Crossmatch 11/18/19 11/18/19 11/18/19 04:12 06:38 06:38 WBC RBC 3.75 L Neutrophils # Lymphocytes # 0.5 L PT 12.7 H INR 1.3 H Sodium Chloride Carbon Dioxide BUN Creatinine Glucose POC Glucose (mg/dL) Plasma Lactic Acid Jimy Calcium Alkaline Phosphatase Urine Protein Ur Leukocyte Esterase Urine Bacteria Hyaline Casts Urine Mucus Stool Occult Blood Positive H Crossmatch 11/18/19 11/18/19 11/18/19 06:38 07:39 07:45 WBC 11.4 H RBC Neutrophils # 10.0 H Lymphocytes # 0.6 L PT INR Sodium 136 L Chloride 112 H Carbon Dioxide 19 L BUN 39 H Creatinine 1.60 H Glucose 131 H POC Glucose (mg/dL) 140 H Plasma Lactic Acid Jimy Calcium Alkaline Phosphatase Urine Protein Ur Leukocyte Esterase Urine Bacteria Hyaline Casts Urine Mucus Stool Occult Blood Crossmatch - Diagnostic Findings Chest x-ray: image reviewed (Chest x-ray showed chronic changes of the left lung base, possibly scarring, no acute process noted.) Additional studies: CT abdomen and pelvis showed inflammatory changes of the sigmoid colon consistent with colitis or diverticulitis, and nonobstructing left renal calculi. Assessment and Plan Assessment: Impression: Suspect acute lower GI bleeding secondary to diverticulitis/colitis with ongoing diarrhea, and probably worsened secondary to anticoagulation therapy. Patient is maintained on Coumadin. However her INR level was subtherapeutic on admission. History of mechanical aortic valve. Patient needs to be maintained on anticoagulation therapy. However presently has to be placed on hold until further evaluation of her GI issues performed. Chronic atrial fibrillation. Remote history of CVA/TIA. Acute colitis/diverticulitis, being addressed by gastroenterology on the case. Acute on chronic kidney disease, could be related to hypovolemia and hypotension/acute tubular necrosis. Hypotension secondary to hypovolemia, strongly doubt sepsis. Patient will likely improve with hydration and her IV fluid was increased to 100 mL per hour. Recommendation: Continue to monitor the patient in the ICU. Continue to hold anticoagulation therapy. Patient is to be evaluated by gastroenterology, and cardiology to assess exact nature of the GI bleeding, and to assess as when the patient could go back on anticoagulation therapy. Continue hydration cautiously, patient is known to have history of LV dysfunction, and needs to be monitored for possible systolic congestive heart failure. Resume home meds. However hold any blood pressure medications while the patient is hypotensive. Titrate norepinephrine, maintain mean arterial pressure above 60. Continue antibiotics for presumptive colitis, again strongly doubt sepsis. We'll continue to follow. Time with Patient: Greater than 30
--- NOTE | 2019-11-18 13:34 | CONS ---
CONSULTATION DATE OF DICTATION: 11/18/2019. REQUESTING PHYSICIAN: Dr. Sosa. REASON FOR CONSULTATION: Weakness, epigastric pain and black stools. HISTORY OF PRESENT ILLNESS: The patient is a 74-year-old pleasant white female who was brought to the emergency room via the EMS who was complaining of severe fatigue, weakness, and dark-colored stools for the last 2 or 3 days duration. She also has been complaining of epigastric pain. Apparently, she was in the bathroom to have a bowel movement and she could not get up and had to call EMS and brought her to the hospital. She was noted to be hypotensive and hence she was admitted to the intensive care unit. She has history of valve replacement and has been on Coumadin for many years, which has been on hold since this morning. Since being in the intensive care unit, as per the nursing staff, no further bleeding. She had one small bowel movement this morning which had a black smear. No nausea, no vomiting, but continues to have epigastric discomfort. No prior history of peptic ulcer disease or recent NSAID use. PAST MEDICAL HISTORY: Significant for hypertension, hyperlipidemia, atrial fibrillation, congestive heart failure, mild memory impairment. PAST SURGICAL HISTORY: Back surgery, pacemaker implantation, aortic dissection repair in 1998, mechanical aortic valve replacement. MEDICATIONS: At home include vitamin D2, docusate, Coreg, Lasix, Ecotrin, Cordarone, Pravachol, Coumadin. ALLERGIES: AMOXICILLIN, PENICILLIN. SOCIAL HISTORY: No smoking. No alcohol use. FAMILY HISTORY: Unremarkable. Father had congestive heart failure. Mother of septic shock. REVIEW OF SYSTEMS: CARDIOPULMONARY: No chest pain. No shortness of breath. GENITOURINARY no dysuria. No hematuria. MUSCULOSKELETAL severe arthritis all over the body. NEUROLOGY unremarkable. PSYCHIATRIC unremarkable. ENT/vision unremarkable. CONSTITUTIONAL: No recent weight loss. No fever, chills, night sweats. HEMATOLOGY mild anemia. NEUROLOGY unremarkable. PHYSICAL EXAMINATION: She appears comfortable. No apparent distress. Vital signs are stable. Blood pressure is 88/74, pulse is 60, temperature 97. HEENT examination unremarkable. Conjunctivae pink. Sclerae anicteric. Oral cavity no lesions. NECK: No JVD or lymph node enlargement. CHEST: Clear to auscultation. HEART: Regular rate and rhythm. ABDOMEN: Soft, bowel sounds are positive. No organomegaly. There was mild tenderness in the epigastric area. EXTREMITIES no pedal edema. SKIN no rashes. NEUROLOGIC: Alert and oriented x3. No focal deficits. LABS: From early this morning, hemoglobin was 12 and repeat hemoglobin 12.3, WBC 11.4, platelets normal. BUN is 39 and creatinine 1.6. INR is 1.3. Stool occult blood was positive. She had a CT of the abdomen and pelvis done in the emergency room early this morning. Mild free fluid in the pelvis noted. Inflammatory changes in the sigmoid colon consistent with colitis versus diverticulitis and evidence of biliary air noted. IMPRESSION: 1. Presents to the hospital with fatigue, weakness associated with epigastric pain and black tarry stools for the last 2 days duration. Hemoglobin surprisingly is normal at 12.3 g/dL. Since being in the hospital, she did not have any evidence of further bleeding except she had some black tarry stools last night. Hemoglobin stable at 12.3 g/dL has been on Coumadin for history of aortic valve replacement, currently on hold and INR is 1.3. 2. Mild coagulopathy secondary to Coumadin which is currently on hold. 3. Elevated BUN and creatinine, possibly chronic kidney disease. 4. History of aortic valve replacement. 5. History of prior aortic dissection for which she underwent surgery in 1998. RECOMMENDATIONS: 1. Start on clear liquid diet. 2. Continue with Protonix 40 mg q.12 hours. 3. Monitor CBC on a daily basis. 4. We will proceed with an upper endoscopy tomorrow. I discussed with the patient risks, benefits and complications of the procedure and she is agreeable to it. Thank you for this consultation. MMODL / IJN: [id number] /
[2019-11-18] MEDS: metroNIDAZOLE-NS PMX 500 MG in SALINE 1 100ML.BAG IVPB SCH (16:03)
[2019-11-18 21:42] LABS: HCT 35.5 % (34.0-46.0); HGB 11.2 gm/dL (11.4-16.0); Hypochromasia Slight; MCH 30.5 pg (25.0-35.0); MCHC 31.5 g/dL (31.0-37.0); MCV 96.9 fL (80.0-100.0); Mean Platelet Volume 8.9; Platelet Count 202 k/uL (150-450); RBC 3.66 m/uL (3.80-5.40); RDW 14.7 % (11.5-15.5); WBC 10.2 k/uL (3.8-10.6)
[2019-11-18] MEDS: PRAVASTATIN SODIUM 20 MG TAB PO SCH (21:42)
--- NOTE | 2019-11-18 22:59 | P.CRDCN ---
History of Present Illness History of present illness: This is Dr. Helton dictating a consult on this patient The patient was interviewed and examined by me IMPRESSION / ASSESSMENT: Patient presenting with weakness and initially low blood pressure in the ER History of possible GI bleeding but hemoglobin is stable History of aortic valve replacement, mechanical History of atrial fibrillation on Coumadin, on low dose amiodarone Currently atrial paced rhythm with a left bundle-branch block PLAN: She is Therapeutic Pravachol hold Coumadin until her endoscopy and then resume her again Serial hemoglobin shows a minimal change in hematocrit Will resume cardiac medications other than Coumadin HPI This 74-year-old female patient who sees me as an outpatient in the office Presenting with generalized weakness and fatigue she has a history of atrial fibrillation and aortic valve replacement and is on Coumadin She reported dark stools for the last several days with diarrhea as well as bright red rectal bleeding She denied any chest discomfort or shortness of breath She has titubation She was sitting on the toilet when she became very weak and dizzy and unable to stand up Positive stool Hemoccult Mechanical valve ROS: No fever chills or rigors, no cough, phlegm or expectoration, no nausea, vomiting or diarrhea, no hematuria, dysuria, no musculoskeletal complaints, no strokes or seizures, no skin lesions. EXAMINATION: Pulse rate in the 60s blood pressure 130 no 40 mmHg Breath sounds are reduced bilaterally with no rhonchi no crackles Heart sounds are regular, crisp mechanical sound REVIEW OF LABS, ECG & MEDICAL DATA Home medications reviewed and include spironolactone, lisinopril, warfarin, Pravachol, Lasix, carvedilol, aspirin, amiodarone 100 mg daily Hemoglobin 12, 12.3 and 11.2 INR 1.3 Sodium 136 potassium 4.4 BUN 39 and creatinine 1.6 coronavirus PCR, undetectable Twelve-lead ECG shows an atrial paced rhythm with a left bundle branch block pattern On CT of the abdomen the changes in the sigmoid colon consistent with inflammation but appears similar to the prior exam Past Medical History Past Medical History: Atrial Fibrillation, Heart Failure, CVA/TIA, Hyperlipidemia, Hypertension, Memory Impairment Additional Past Medical History / Comment(s): essential tremor, PAST HX AFIB BUT WAS CARDIOVERTED, KIDNEY STONE,ARTHRITIS,abdominal aortic dissection and repair WITH CVA POST OP WHICH HAS AFFECTED MEMORY SLIGHTLY and left patient with residual slight left sided weakness, chronic anemia, thoracic and abdominal aortic aneurysm, hypercalcemia and hyperparathyroidism WHICH SHE CURRENTLY TEST NORMAL FOR. Diverticulitis History of Any Multi-Drug Resistant Organisms: None Reported Past Surgical History: Back Surgery, Heart Catheterization, Pacemaker Additional Past Surgical History / Comment(s): 1998 aortic disection repair, three aneurysm ascending and descending aorta, aortic valve replacement(MECHANICAL VALVE), CYST AT END OF SPINE REMOVED. CARDIAC CATHETERIZATION WHICH WAS NORMAL. biventricular pacer placed in 08/2014 - pacer is on right side of chest - physician unable to get into left Past Anesthesia/Blood Transfusion Reactions: No Reported Reaction Type of Cardiac Device: Biventricular Pacemaker Device Placement Date:: 08/2014 Smoking Status: Never smoker - Past Family History Father History Unknown: Yes Family Medical History: AFIB, Congestive Heart Failure (CHF) Additional Family Medical History / Comment(s): FATHER AT AGE 73 OF CHF. Mother History Unknown: Yes Additional Family Medical History / Comment(s): MOTHER AT AGE 78 OF SEPTIC SHOCK UNKNOWN SOURCE. Medications and Allergies Home Medications Medication Instructions Recorded Confirmed Type Pravastatin Sodium [Pravachol] 20 mg PO HS 04/17/15 11/18/19 History Amiodarone [Cordarone] 100 mg PO DAILY 07/25/18 11/18/19 History Aspirin EC [Ecotrin Low Dose] 81 mg PO DAILY 07/25/18 11/18/19 History Furosemide [Lasix] 80 mg PO QAM 07/25/18 11/18/19 History Pantoprazole [Protonix] 40 mg PO DAILY tablet. 08/03/18 11/18/19 Rx Carvedilol [Coreg] 12.5 mg PO BID 03/28/19 11/18/19 History Docusate Sodium [Dok] 100 mg PO DAILY PRN 03/28/19 11/18/19 History Acetaminophen Tab [Tylenol] 650 mg PO Q6HR PRN tab 04/04/19 11/18/19 Rx Lisinopril [Zestril] 10 mg PO DAILY 11/18/19 11/18/19 History Spironolactone [Aldactone] 25 mg PO DAILY 11/18/19 11/18/19 History Warfarin Sodium [Coumadin] 5 mg PO MOTUWETHFRSA 11/18/19 11/18/19 History Allergies Allergy/AdvReac Type Severity Reaction Status Date / Time amoxicillin AdvReac Nausea & Verified 11/18/19 07:14 Vomiting & Diarrhea levofloxacin [From Levaquin] AdvReac Rash/Hives Verified 11/18/19 07:14 Penicillins AdvReac Nausea & Verified 11/18/19 07:14 Vomiting & Diarrhea vitamin K medications AdvReac Unknown Uncoded 11/18/19 11:44 Physical Exam Vitals: Vital Signs Temp Pulse Resp BP Pulse Ox 11/18/19 22:00 63 24 113/40 94 L 11/18/19 21:30 68 14 110/41 97 11/18/19 21:00 68 14 107/38 96 11/18/19 20:30 63 13 104/38 96 11/18/19 20:00 98.8 F 65 17 84/45 97 11/18/19 19:30 66 22 109/39 97 11/18/19 19:15 66 6 L 96/39 96 11/18/19 19:00 64 11 L 102/40 95 11/18/19 18:45 64 3 L 104/35 96 11/18/19 18:30 66 8 L 103/58 97 11/18/19 18:15 65 11 L 114/42 97 11/18/19 18:00 64 12 106/41 97 11/18/19 17:45 63 18 108/40 97 11/18/19 17:30 66 20 96/51 97 11/18/19 17:15 71 23 93/67 93 L 11/18/19 17:00 70 15 105/91 96 11/18/19 16:45 66 24 102/35 96 11/18/19 16:30 67 9 L 101/34 96 11/18/19 16:15 66 9 L 101/41 96 11/18/19 16:00 98.5 F 65 10 L 108/41 96 11/18/19 15:45 67 12 112/38 96 11/18/19 15:30 66 14 112/60 96 11/18/19 15:15 66 22 123/54 97 11/18/19 15:00 65 15 121/53 95 11/18/19 14:45 61 10 L 123/45 96 11/18/19 14:30 60 10 L 127/44 96 11/18/19 14:15 60 10 L 125/45 97 11/18/19 14:00 60 10 L 126/47 97 11/18/19 13:45 60 10 L 115/48 97 11/18/19 13:30 60 10 L 121/42 97 11/18/19 13:15 60 10 L 151/56 96 11/18/19 13:00 16 84/30 96 11/18/19 12:45 64 5 L 104/41 11/18/19 12:30 61 5 L 111/41 97 11/18/19 12:15 60 6 L 124/48 95 11/18/19 12:00 98.4 F 60 12 124/50 97 11/18/19 11:45 61 20 131/46 96 11/18/19 11:30 62 5 L 124/49 95 11/18/19 11:15 60 7 L 119/48 95 11/18/19 11:00 60 3 L 124/48 96 11/18/19 10:45 60 14 113/42 95 11/18/19 10:30 60 17 88/34 96 11/18/19 10:15 60 12 109/51 95 11/18/19 10:00 60 15 119/103 96 11/18/19 09:45 67 28 H 115/42 97 11/18/19 09:30 60 12 110/42 95 11/18/19 09:15 60 10 L 103/45 96 11/18/19 09:00 60 6 L 110/43 95 11/18/19 08:45 59 L 6 L 103/39 95 11/18/19 08:30 60 15 114/46 94 L 11/18/19 08:00 64 159/54 11/18/19 07:30 98.3 F 62 18 125/47 94 L 11/18/19 07:16 60 16 125/47 98 11/18/19 07:00 60 16 133/53 98 11/18/19 06:45 59 L 16 113/43 98 20 05:45 59 L 16 85/38 98 11/18/19 05:30 59 L 16 71/45 99 20 05:15 60 16 87/37 98 20 04:45 60 16 71/22 99 0520 04:34 60 16 66/27 99 20 04:12 60 16 120/50 98 11/18/19 04:00 98 F 0520 03:56 60 16 84/63 98 11/18/19 03:48 94.7 F L 60 16 60/27 98 Intake and Output 11/18/19 11/18/19 11/18/19 06:59 14:59 22:59 Intake Total 704.893 811.731 Output Total 260 500 Balance 444.893 311.731 Intake: IV 650 700 Sodium Chloride 0.9% 1, 650 700 000 ml @ 100 mls/hr IV . Q10H [facility] Rx#:[id number] Intake, IV Titration 54.893 111.731 Amount Norepinephrine 8 mg In 54.893 11.731 Sodium Chloride 0.9% 250 ml @ 0.05 MCG/KG/MIN 7. 768 mls/hr IV .Q24H [facility] Rx#:[id number] metroNIDAZOLE-NS PMX 500 100 mg In Saline 1 100ml.bag @ 100 mls/hr IVPB Q8HR [facility] Rx#:[id number] Output: Urine 260 500 Other: Voiding Method Indwelling Catheter Indwelling Catheter # Bowel Movements 4 # Emeses 2 Weight 80.286 kg 80.286 kg Results 11/18/19 20:35 11/18/19 06:38 Cardiac Enzymes 11/18/19 Range/Units 03:55 AST 23 (14-36) U/L Coagulation 11/18/19 11/18/19 Range/Units 03:55 06:38 PT 12.2 H 12.7 H (9.0-12.0) sec APTT 22.7 22.4 (22.0-30.0) sec CBC 11/18/19 11/18/19 11/18/19 Range/Units 03:55 06:38 07:45 WBC 10.7 H 8.1 11.4 H (3.8-10.6) k/uL RBC 4.28 3.75 L 3.91 (3.80-5.40) m/uL Hgb 12.8 12.0 12.3 (11.4-16.0) gm/dL Hct 41.2 36.9 38.5 (34.0-46.0) % Plt Count 229 171 204 (150-450) k/uL 11/18/19 Range/Units 20:35 WBC 10.2 (3.8-10.6) k/uL RBC 3.66 L (3.80-5.40) m/uL Hgb 11.2 L (11.4-16.0) gm/dL Hct 35.5 (34.0-46.0) % Plt Count 202 (150-450) k/uL Comprehensive Metabolic Panel 11/18/19 11/18/19 Range/Units 03:55 06:38 Sodium 135 L 136 L (137-145) mmol/L Potassium 4.8 4.4 (3.5-5.1) mmol/L Chloride 106 112 H (98-107) mmol/L Carbon Dioxide 22 19 L (22-30) mmol/L BUN 37 H 39 H (7-17) mg/dL Creatinine 1.76 H 1.60 H (0.52-1.04) mg/dL Glucose 134 H 131 H (74-99) mg/dL Calcium 11.0 H 9.6 (8.4-10.2) mg/dL AST 23 (14-36) U/L ALT 13 (4-34) U/L Alkaline Phosphatase 150 H (38-126) U/L Total Protein 7.1 (6.3-8.2) g/dL Albumin 3.6 (3.5-5.0) g/dL Current Medications Generic Name Dose Route Start Last Admin Trade Name Freq PRN Reason Stop Dose Admin Acetaminophen 650 mg 11/18/19 04:35 Tylenol Tab PO Q6HR PRN Mild Pain or Fever > 100.5 Amiodarone HCl 100 mg 11/18/19 11:00 11/18/19 11:42 Cordarone PO 100 mg DAILY [place] Administration Docusate Sodium 100 mg 11/18/19 10:57 Colace PO DAILY PRN Constipation Sodium Chloride 1,000 mls @ 100 mls/hr 11/18/19 04:30 11/18/19 16:03 Saline 0.9% IV 100 mls/hr .Q10H [place] Administration Norepinephrine Bitartrate 8 mg 258 mls @ 7.768 mls/hr 11/18/19 06:33 11/18/19 21:14 / Sodium Chloride IV 11/19/19 06:32 0.01 mcg/kg/min .Q24H [facility] 1.554 mls/hr Titration Protocol 0.05 MCG/KG/MIN Metronidazole 500 mg/ IV 100 mls @ 100 mls/hr 11/18/19 16:00 11/18/19 16:03 Solution IVPB 100 mls/hr Q8HR [place] Administration Naloxone HCl 0.2 mg 11/18/19 04:35 Narcan IV Q2M PRN Opioid Reversal Ondansetron HCl 4 mg 11/18/19 13:08 11/18/19 15:25 Zofran IVP 4 mg Q6HR PRN Administration Nausea And Vomiting Pantoprazole Sodium 40 mg 11/18/19 09:00 11/18/19 21:41 Protonix IVP 40 mg BID [place] Administration Pravastatin Sodium 20 mg 11/18/19 21:00 11/18/19 21:42 Pravachol PO 20 mg HS [place] Administration Spironolactone 25 mg 11/19/19 09:00 Aldactone PO DAILY [facility] Intake and Output 11/18/19 11/18/19 11/18/19 06:59 14:59 22:59 Intake Total 704.893 811.731 Output Total 260 500 Balance 444.893 311.731 Intake: IV 650 700 Sodium Chloride 0.9% 1, 650 700 000 ml @ 100 mls/hr IV . Q10H [facility] Rx#:[id number] Intake, IV Titration 54.893 111.731 Amount Norepinephrine 8 mg In 54.893 11.731 Sodium Chloride 0.9% 250 ml @ 0.05 MCG/KG/MIN 7. 768 mls/hr IV .Q24H [facility] Rx#:[id number] metroNIDAZOLE-NS PMX 500 100 mg In Saline 1 100ml.bag @ 100 mls/hr IVPB Q8HR [facility] Rx#:[id number] Output: Urine 260 500 Other: Voiding Method Indwelling Catheter Indwelling Catheter # Bowel Movements 4 # Emeses 2 Weight 80.286 kg 80.286 kg Patient Weight 11/19/19 06:59 Weight 80.286 kg 11/18/19 20:35 11/18/19 06:38
[2019-11-19] MEDS: metroNIDAZOLE-NS PMX 500 MG in SALINE 1 100ML.BAG IVPB SCH ×3 (00:18→15:08)
[2019-11-19 04:55] LABS: Basophils % (A) 0 %; Eosinophils # (A) 0.1 k/uL (0-0.7); Eosinophils % (A) 1 %; HCT 35.1 % (34.0-46.0); HGB 11.2 gm/dL (11.4-16.0); Hypochromasia Slight; Lymphocytes # (A) 0.8 k/uL (1.0-4.8); Lymphocytes % (A) 9 %; MCHC 31.9 g/dL (31.0-37.0); MCV 97.5 fL (80.0-100.0); Mean Platelet Volume 7.9; Monocytes # (A) 0.4 k/uL (0-1.0); Monocytes % (A) 5 %; Neutrophils # (A) 7.8 k/uL (1.3-7.7); Neutrophils % (A) 84 %; Platelet Count 198 k/uL (150-450); RBC 3.61 m/uL (3.80-5.40); RDW 15.1 % (11.5-15.5); WBC 9.3 k/uL (3.8-10.6)
[2019-11-19 05:04] LABS: Albumin 2.5 g/dL (3.5-5.0); Calcium 10.4 mg/dL (8.4-10.2); Potassium 4.5 mmol/L (3.5-5.1); Total Bilirubin 0.4 mg/dL (0.2-1.3); Total Protein 5.6 g/dL (6.3-8.2)
[2019-11-19] MEDS: SODIUM CHLORIDE 0.9% 1,000 ML IV SCH ×2 (07:44→12:18)
--- NOTE | 2019-11-19 07:46 | XR ---
EXAMINATION TYPE: XR chest 1V DATE OF EXAM: 11/19/2019 COMPARISON: 11/18/2019 HISTORY: Gastrointestinal bleed. Abdominal pain. TECHNIQUE: Single frontal view of the chest is obtained. FINDINGS: Prominence of the right paratracheal stripe may be from rotation. Attention on follow-up e xams. Cardiomediastinal silhouette is mildly enlarged with post CABG changes and multilead right-sided card iac device. Diffuse osseous demineralization seen. No focal consolidation, sizable pleural effusion o r pneumothorax. Chronic probable scarring at the left costophrenic angle. IMPRESSION: Probable scarring at the left lung base. No acute process.
[2019-11-19] MEDS: PANTOPRAZOLE 40 MG/10 ML VIAL IVP SCH ×2 (07:47→21:14)
[2019-11-19] MEDS ORDERED: IV FLUID CONTINUATION 1,000 ML IV ONE (09:00)
[2019-11-19] MEDS ORDERED: LIDOCAINE 1% INJ 10MG/ML (20 ML MDV) ONE (09:00)
[2019-11-19] MEDS ORDERED: PROPOFOL 10 MG/ML 20 ML VIAL IV ONE (09:00)
[2019-11-19] MEDS ORDERED: FUROSEMIDE 80 MG TAB PO SCH (09:00)
[2019-11-19] MEDS ORDERED: LISINOPRIL 10 MG TAB PO SCH (09:00)
[2019-11-19] MEDS ORDERED: ePHEDrine SULFATE/0.9% NACL/PF 50 MG/5 ML SYRINGE IV ONE (09:00)
--- NOTE | 2019-11-19 09:19 | P.PCN ---
Date of Procedure: 11/19/19 Procedure(s) Performed: BRIEF HISTORY: Patient is a 74-year-old, pleasant, white female admitted hospital with black tarry stools for the last 3 days' duration. She also complains of severe epigastric pain for the same duration of time. She had a hemoglobin of 12.3 g/dL the time of admission to hospital. Because of clinical suspicion for an upper GI bleed he scheduled for an upper endoscopy today. PROCEDURE PERFORMED: Esophagogastroduodenoscopy with biopsy. PREOPERATIVE DIAGNOSIS: Black tarry stools of 3 days' duration and severe epigastric pain. IV sedation per anesthesia. PROCEDURE: After informed consent was obtained, the patient was brought into the endoscopy unit. IV sedation was administered by Anesthesia under continuous monitoring. Initially the Olympus GIF-140 video endoscope was inserted into the mouth. Esophagus intubated without any difficulty. It was gradually advanced in to the stomach and duodenum and carefully examined. The bulb and the second part of the duodenum appeared normal. The scope at this time was withdrawn to the stomach, adequately insufflated with air, and upon careful examination, mucosa of the antrum, appeared normal. However in the proximal body the stomach as well as the entire cardia and fundus the mucosa appeared very congested, edematous friable with superficial ulcerations and bluish discoloration all consistent with ischemic gastritis and biopsies were done from this area. The scope was then withdrawn into the esophagus. The GE junction was located at 39 cm from the incisors. The esophagus appeared normal. There were no erosions or ulcerations seen and the patient tolerated the procedure well. IMPRESSION: 1. Severe ischemic appearing gastritis involving the proximal body and entire fundus of the stomach with mucosal erythema, friability congestion with superficial ulceration and bluish discoloration of the mucosa. 2. No active bleeding. RECOMMENDATIONS: The findings of this examination were discussed with the patient. Will await biopsy results. Obtain surgical consultation for ischemic gastritis. Continue broad-spectrum antibiotics. Keep her on clear liquid diet.
--- NOTE | 2019-11-19 10:35 | P.GSCN ---
History of Present Illness Consult date: 11/19/19 Reason for Consult: Ischemic stomach History of present illness: This a 74-year-old female who was admitted to the ICU with complaints of abdom inal pain and hypotension. Patient was on pressors yesterday. Patient underwent EGD today with Dr. Black is found to have an ischemic proximal stomach. Patient states her pain is improved since yesterday. She is currently asymptomatic Past Medical History Past Medical History: Atrial Fibrillation, Heart Failure, CVA/TIA, Hyperlipidemia, Hypertension, Memory Impairment Additional Past Medical History / Comment(s): essential tremor, PAST HX AFIB BUT WAS CARDIOVERTED, KIDNEY STONE,ARTHRITIS,abdominal aortic dissection and repair WITH CVA POST OP WHICH HAS AFFECTED MEMORY SLIGHTLY and left patient with residual slight left sided weakness, chronic anemia, thoracic and abdominal aortic aneurysm, hypercalcemia and hyperparathyroidism WHICH SHE CURRENTLY TEST NORMAL FOR. Diverticulitis History of Any Multi-Drug Resistant Organisms: None Reported Past Surgical History: Back Surgery, Heart Catheterization, Pacemaker Additional Past Surgical History / Comment(s): 1998 aortic disection repair, three aneurysm ascending and descending aorta, aortic valve replacement(MECHANICAL VALVE), CYST AT END OF SPINE REMOVED. CARDIAC CATHETERIZATION WHICH WAS NORMAL. biventricular pacer placed in 08/2014 - pacer is on right side of chest - physician unable to get into left Past Anesthesia/Blood Transfusion Reactions: No Reported Reaction Type of Cardiac Device: Biventricular Pacemaker Device Placement Date:: 08/2014 Smoking Status: Never smoker - Past Family History Father History Unknown: Yes Family Medical History: AFIB, Congestive Heart Failure (CHF) Additional Family Medical History / Comment(s): FATHER AT AGE 73 OF CHF. Mother History Unknown: Yes Additional Family Medical History / Comment(s): MOTHER AT AGE 78 OF SEPTIC SHOCK UNKNOWN SOURCE. Medications and Allergies Home Medications Medication Instructions Recorded Confirmed Type Pravastatin Sodium [Pravachol] 20 mg PO HS 04/17/15 11/18/19 History Amiodarone [Cordarone] 100 mg PO DAILY 07/25/18 11/18/19 History Aspirin EC [Ecotrin Low Dose] 81 mg PO DAILY 07/25/18 11/18/19 History Furosemide [Lasix] 80 mg PO QAM 07/25/18 11/18/19 History Pantoprazole [Protonix] 40 mg PO DAILY tablet. 08/03/18 11/18/19 Rx Carvedilol [Coreg] 12.5 mg PO BID 03/28/19 11/18/19 History Docusate Sodium [Dok] 100 mg PO DAILY PRN 03/28/19 11/18/19 History Acetaminophen Tab [Tylenol] 650 mg PO Q6HR PRN tab 04/04/19 11/18/19 Rx Lisinopril [Zestril] 10 mg PO DAILY 11/18/19 11/18/19 History Spironolactone [Aldactone] 25 mg PO DAILY 11/18/19 11/18/19 History Warfarin Sodium [Coumadin] 5 mg PO MOTUWETHFRSA 11/18/19 11/18/19 History Allergies Allergy/AdvReac Type Severity Reaction Status Date / Time amoxicillin AdvReac Nausea & Verified 11/18/19 07:14 Vomiting & Diarrhea levofloxacin [From Levaquin] AdvReac Rash/Hives Verified 11/18/19 07:14 Penicillins AdvReac Nausea & Verified 11/18/19 07:14 Vomiting & Diarrhea vitamin K medications AdvReac Unknown Uncoded 11/18/19 11:44 Surgical - Exam Vital Signs Temp Pulse Resp BP Pulse Ox 94.7 F L 60 16 60/27 98 11/18/19 03:48 11/18/19 03:48 11/18/19 03:48 11/18/19 03:48 11/18/19 03:48 - General well developed, well nourished, no distress - Eyes PERRL - ENT normal pinna - Neck no masses - Respiratory normal expansion - Cardiovascular Rhythm: regular - Abdomen Abdomen: soft, non tender Results - Labs 11/19/19 04:40 11/19/19 04:40 Abnormal Lab Results - Last 24 Hours (Table) 11/18/19 11/19/19 11/19/19 Range/Units 20:35 04:40 04:40 RBC 3.66 L 3.61 L (3.80-5.40) m/uL Hgb 11.2 L 11.2 L (11.4-16.0) gm/dL Neutrophils # 7.8 H (1.3-7.7) k/uL Lymphocytes # 0.8 L (1.0-4.8) k/uL Chloride 114 H (98-107) mmol/L Carbon Dioxide 19 L (22-30) mmol/L BUN 32 H (7-17) mg/dL Creatinine 1.51 H (0.52-1.04) mg/dL Glucose 107 H (74-99) mg/dL Calcium 10.4 H (8.4-10.2) mg/dL Total Protein 5.6 L (6.3-8.2) g/dL Albumin 2.5 L (3.5-5.0) g/dL Microbiology - Last 24 Hours (Table) 11/18/19 04:12 Blood Culture - Preliminary Blood No Growth after 24 hours Diabetes panel 11/19/19 Range/Units 04:40 Sodium 137 (137-145) mmol/L Potassium 4.5 (3.5-5.1) mmol/L Chloride 114 H (98-107) mmol/L Carbon Dioxide 19 L (22-30) mmol/L BUN 32 H (7-17) mg/dL Creatinine 1.51 H (0.52-1.04) mg/dL Glucose 107 H (74-99) mg/dL Calcium 10.4 H (8.4-10.2) mg/dL AST 25 (14-36) U/L ALT 11 (4-34) U/L Alkaline Phosphatase 89 (38-126) U/L Total Protein 5.6 L (6.3-8.2) g/dL Albumin 2.5 L (3.5-5.0) g/dL Calcium panel 11/19/19 Range/Units 04:40 Calcium 10.4 H (8.4-10.2) mg/dL Albumin 2.5 L (3.5-5.0) g/dL Pituitary panel 11/19/19 Range/Units 04:40 Sodium 137 (137-145) mmol/L Potassium 4.5 (3.5-5.1) mmol/L Chloride 114 H (98-107) mmol/L Carbon Dioxide 19 L (22-30) mmol/L BUN 32 H (7-17) mg/dL Creatinine 1.51 H (0.52-1.04) mg/dL Glucose 107 H (74-99) mg/dL Calcium 10.4 H (8.4-10.2) mg/dL Adrenal panel 11/19/19 Range/Units 04:40 Sodium 137 (137-145) mmol/L Potassium 4.5 (3.5-5.1) mmol/L Chloride 114 H (98-107) mmol/L Carbon Dioxide 19 L (22-30) mmol/L BUN 32 H (7-17) mg/dL Creatinine 1.51 H (0.52-1.04) mg/dL Glucose 107 H (74-99) mg/dL Calcium 10.4 H (8.4-10.2) mg/dL Total Bilirubin 0.4 (0.2-1.3) mg/dL AST 25 (14-36) U/L ALT 11 (4-34) U/L Alkaline Phosphatase 89 (38-126) U/L Total Protein 5.6 L (6.3-8.2) g/dL Albumin 2.5 L (3.5-5.0) g/dL Assessment and Plan Assessment: Ischemic stomach. Patient currently feels better. Patient may closely observed. If she has any signs or symptoms of further gastric ischemia she may require exploratory laparotomy.
[2019-11-19] MEDS: SPIRONOLACTONE 25 MG TAB PO SCH (12:17)
[2019-11-19] MEDS: AMIODARONE 100 MG TAB PO SCH (12:17)
[2019-11-19] MEDS ORDERED: ENOXAPARIN 30 MG/0.3 ML SYRINGE SQ SCH (13:00)
[2019-11-19] MEDS ORDERED: ENOXAPARIN 80 MG/0.8 ML SYRINGE SQ SCH (13:00)
--- NOTE | 2019-11-19 13:01 | P.PN ---
Subjective Progress Note Date: 11/19/19 Alix Odonnell, is a 74-year-old female who was at her home sitting on the toilet when she felt very weak and dizzy, she was unable to stand up, she managed to call EMS who came to her home and helped her up her toilet seat she stated that they told her that there was blood in the toilet, patient was brought in to [facility] emergency room she was evaluated by Dr. Carlos hemoglobin was 12 Stool Hemoccult was positive BUN and creatinine was elevated at 39 and 1.6 patient has a known history of mechanical valve she is maintained on Coumadin, her INR on presentation was low at 1.3. Computed tomography scan of abdomen and pelvis without contrast was done in the emergency room and r evealed evidence of sigmoid colon inflammatory changes suggestive of colitis or diverticulitis she was started on IV antibiotics Levaquin and Flagyl in the emergency room. Patient was admitted to intensive care unit, cardiology consultation gastroenterology consultation and critical care consultations were requested. Patient was seen and examined in ICU she is alert and oriented 3 in no apparent distress she is complaining of generalized weakness otherwise she denies any complaints there is no fever or chills no headache or dizziness no chest pain no shortness of breath no cough no nausea or vomiting no abdominal pain no diarrhea no burning with urination no frequency or urgency and no hematuria. Her past medical history is significant for chronic systolic congestive heart failure, chronic kidney disease stage III, history of atrial fibrillation, history of stroke with residual left sided weakness, history of aortic mechanical valve replacement, maintained on Coumadin, remote history of abdominal aortic dissection and repair. On 11/19/2019 patient was seen and examined in the ICU, she is alert and oriented 3 in no apparent distress, there is no fever or chills no headache or dizziness no chest pain no shortness of breath no cough no nausea or vomiting no abdominal pain no diarrhea no burning with urination no frequency or urgency and no hematuria, patient underwent an EGD with Dr. Webb, results reviewed, input from Gen. surgery reviewed, at this time no surgical intervention scheduled, will start patient on full therapeutic dose of Lovenox until further decision in regard to any intervention is taken, if no intervention is required will start patient back on her Coumadin Objective - Vital Signs Vital signs: Vital Signs Temp 98.9 F 11/19/19 12:00 Pulse 71 11/19/19 12:00 Resp 14 11/19/19 12:00 BP 137/48 11/19/19 12:00 Pulse Ox 95 11/19/19 12:00 Intake & Output 11/18/19 11/19/19 11/19/19 18:59 06:59 18:59 Intake Total 2113.563 1059 566.291 Output Total 610 560 440 Balance 506.624 743 126.291 Weight 80.286 kg 86.7 kg Intake: IV 950 1303 550 Sodium Chloride 0.9% 1, 950 1200 400 000 ml @ 100 mls/hr IV . Q10H [place] Rx#:[id number] metroNIDAZOLE-NS PMX 500 103 100 mg In Saline 1 100ml.bag @ 100 mls/hr IVPB ONCE STA Rx#:[id number] Intake, IV Titration 166.624 0 16.291 Amount Norepinephrine 8 mg In 66.624 0 16.291 Sodium Chloride 0.9% 250 ml @ 0.05 MCG/KG/MIN 7. 768 mls/hr IV .Q24H ONE Rx#:[id number] metroNIDAZOLE-NS PMX 500 100 mg In Saline 1 100ml.bag @ 100 mls/hr IVPB Q8HR [place] Rx#:[id number] Output: Urine 610 560 440 Other: Voiding Method Indwelling Catheter Indwelling Catheter Indwelling Catheter # Bowel Movements 4 # Emeses 2 - Exam In general patient is alert and oriented 3 in no apparent distress HEENT head normocephalic and atraumatic Neck is supple no JVD no goiter no lymphadenopathy Chest exam reveals a few scattered rhonchi no wheezing Cardiac exam reveals regular heart sounds S1 and S2, with accentuated S2 and 3/6 systolic murmur in the left sternal border Abdomen is soft nontender no organomegaly with normal bowel sounds Extremity exam reveals no edema no cyanosis or clubbing Neurological examination reveals no acute gross deficit, chronic mild left sided weakness as compared to the right - Labs CBC & Chem 7: 11/19/19 04:40 11/19/19 04:40 Labs: Abnormal Lab Results - Last 24 Hours (Table) 11/18/19 11/19/19 11/19/19 Range/Units 20:35 04:40 04:40 RBC 3.66 L 3.61 L (3.80-5.40) m/uL Hgb 11.2 L 11.2 L (11.4-16.0) gm/dL Neutrophils # 7.8 H (1.3-7.7) k/uL Lymphocytes # 0.8 L (1.0-4.8) k/uL Chloride 114 H (98-107) mmol/L Carbon Dioxide 19 L (22-30) mmol/L BUN 32 H (7-17) mg/dL Creatinine 1.51 H (0.52-1.04) mg/dL Glucose 107 H (74-99) mg/dL Calcium 10.4 H (8.4-10.2) mg/dL Total Protein 5.6 L (6.3-8.2) g/dL Albumin 2.5 L (3.5-5.0) g/dL Microbiology - Last 24 Hours (Table) 11/18/19 04:12 Blood Culture - Preliminary Blood No Growth after 24 hours Assessment and Plan Plan: 1. Generalized weakness, likely related to dehydration 2. Rectal bleeding 3. Underlying history of congestive heart failure with cardiomyopathy 4. Underlying history of mechanical aortic valve replacement maintained on Coumadin 5. Underlying history of atrial fibrillation 6. Remote history of stroke 7. Evidence of colitis versus diverticulitis on computed tomography scan of the abdomen in the sigmoid colon patient was started on IV antibiotic Levaquin and Flagyl, will continue at this time. 8. Underlying history of chronic kidney disease stage III Will monitor CBC closely Patient is admitted to intensive care unit pulmonary critical care consultation requested in the emergency room, cardiology and gastroenterology consultation requested. I reviewed and reordered home medications. Cardiology and gastroenterology to decide in regard to anticoagulation and aspirin use Prognosis is guarded due to severity of illness, and the presence of gastrointestinal bleeding in the face of need to use anticoagulation.
--- NOTE | 2019-11-19 13:14 | P.PN ---
Subjective Progress Note Date: 11/19/19 Principal diagnosis: Lower GI bleeding, diverticulitis/colitis This is a 74-year-old female with history of multiple medical problems including chronic atrial fibrillation, history of aortic valve replacement with mechanical aortic valve. Patient is maintained on Coumadin. She is also known to have history of underlying congestive heart failure, cardiomyopathy and LV dysfunc tion. Patient presented to the ER last night with mostly symptoms of dizziness and weakness. Patient also noted some blood in her toilet. Upon evaluation in the ER, patient was noted to have a hemoglobin of 12, she had positive stool for Hemoccult. And she was noted to have elevated BUN and creatinine 59 and 1.6 respectively. Her INR was actually subtherapeutic although the patient was on Coumadin. CT of the abdomen and pelvis was done and it showed mostly sigmoid inflammatory changes. Suggestive of colitis or diverticulitis. Patient was placed on antibiotics in the form of Levaquin and Flagyl. While in the ER, the patient was noted to have marginally low blood pressure. Hence arrangements were made to admit the patient to the intensive care unit. Patient was seen by many consultants since admission including cardiology, gastroenterology, and presently her Coumadin is on hold. She was told by gastroenterology that she would have EGD tomorrow. Since admission, the patient did not require any blood transfusion, and her hemoglobin this morning is 12.3. Patient is receiving fluid in the form of 0.9 normal saline at 75 mL/h and she is noted to be clinically dehydrated. She is also on norepinephrine at 4 mcg/m. Patient continues to have some maroon colored stools since admission. And intermittent episodes of diarrhea. Patient was reevaluated today on 11/15/19, remains in the intensive care unit, but the patient seems to be doing quite well. Relatively asymptomatic, no further episodes of bleeding. And her diarrhea seems to be better controlled. Hemoglobin is 11.2 today, WBC count is 9.3, elect lites are normal renal profile is improving with a BUN of 32 creatinine is 1.51. Patient underwent EGD today, and she was found to have severe ischemic-appearing gastritis involving the proximal body and entire fundus of the stomach. There was also mucosal erythe ma, friability, congestion, and superficial ulceration with bluish discoloration of the mucosa. But no active bleeding. Hence the patient was seen by general surgery on consultation, and felt that the patient is doing well clinically, hence I recommended observation, may or may not require exploratory laparotomy. This is yet to be determined. Objective - Vital Signs Vital signs: Vital Signs Temp 98.9 F 11/19/19 12:00 Pulse 67 11/19/19 13:00 Resp 18 11/19/19 13:00 BP 124/82 11/19/19 13:00 Pulse Ox 95 11/19/19 13:00 Intake & Output 11/18/19 11/19/19 11/19/19 18:59 06:59 18:59 Intake Total 6439.344 0745 766.291 Output Total 610 560 535 Balance 506.624 743 231.291 Weight 80.286 kg 86.7 kg Intake: IV 950 1303 750 Sodium Chloride 0.9% 1, 950 1200 600 000 ml @ 100 mls/hr IV . Q10H [place] Rx#:[id number] metroNIDAZOLE-NS PMX 500 103 100 mg In Saline 1 100ml.bag @ 100 mls/hr IVPB ONCE STA Rx#:[id number] Intake, IV Titration 166.624 0 16.291 Amount Norepinephrine 8 mg In 66.624 0 16.291 Sodium Chloride 0.9% 250 ml @ 0.05 MCG/KG/MIN 7. 768 mls/hr IV .Q24H ONE Rx#:[id number] metroNIDAZOLE-NS PMX 500 100 mg In Saline 1 100ml.bag @ 100 mls/hr IVPB Q8HR [facility] Rx#:[id number] Output: Urine 610 560 535 Other: Voiding Method Indwelling Catheter Indwelling Catheter Indwelling Catheter # Bowel Movements 4 # Emeses 2 - Exam Physical Exam: Revealed a 74-year-old female, in no distress. Patient is on room air. Head: Atraumatic, normocephalic. HEENT: PERRLA, EOMI, no icterus. [Neck is supple.] [No neck masses.] [No thyromegaly.] [No JVD.] Chest: [Symmetrical chest expansion, diminished breath sounds at the bases minimal crackles at the bases. No wheezes. Cardiac Exam: [Normal S1 and S2, positive mechanical valve sound. In the right parasternal area, over aortic valve 2/6 systolic murmur in the left lower sternal border. Abdomen: [Soft, nontender, no megaly, no rebound, no guarding, normal bowel sounds.] Extremities: [No clubbing, no edema, no cyanosis.] Neurological Exam: [No focal neurologic deficit.] Alert and oriented 3, no gross focal neurologic deficits. Psychiatric: Normal mood affect and normal mental status examination. Skin: No rashes. Lymphatics: No lymphadenopathy. - Labs CBC & Chem 7: 11/19/19 04:40 11/19/19 04:40 Labs: Abnormal Lab Results - Last 24 Hours (Table) 11/18/19 11/19/19 11/19/19 Range/Units 20:35 04:40 04:40 RBC 3.66 L 3.61 L (3.80-5.40) m/uL Hgb 11.2 L 11.2 L (11.4-16.0) gm/dL Neutrophils # 7.8 H (1.3-7.7) k/uL Lymphocytes # 0.8 L (1.0-4.8) k/uL Chloride 114 H (98-107) mmol/L Carbon Dioxide 19 L (22-30) mmol/L BUN 32 H (7-17) mg/dL Creatinine 1.51 H (0.52-1.04) mg/dL Glucose 107 H (74-99) mg/dL Calcium 10.4 H (8.4-10.2) mg/dL Total Protein 5.6 L (6.3-8.2) g/dL Albumin 2.5 L (3.5-5.0) g/dL Microbiology - Last 24 Hours (Table) 11/18/19 04:12 Blood Culture - Preliminary Blood No Growth after 24 hours Assessment and Plan Assessment: Impression: Suspect acute lower GI bleeding secondary to ischemic gastritis with seems to be severe based on EGD. History of mechanical aortic valve. Patient needs to be maintained on anticoagulation therapy. However presently has to be placed on hold until further evaluation of her GI issues performed. Chronic atrial fibrillation. Remote history of CVA/TIA. Acute colitis/diverticulitis, being addressed by gastroenterology on the case. Acute on chronic kidney disease, could be related to hypovolemia and hypotension/acute tubular necrosis. Hypotension secondary to hypovolemia, strongly doubt sepsis. Patient will likely improve with hydration and her IV fluid was increased to 100 mL per hour. Recommendation: Agree with surgical consultation. Continue to monitor the patient in the ICU. Continue to hold anticoagulation therapy. Continue Protonix. Continue hydration cautiously, Resume home meds. However hold any blood pressure medications while the patient is hypotensive.. Continue empiric antibiotics. Discussed her condition with the general surgery on the case We'll continue to follow. Time with Patient: Less than 30
--- NOTE | 2019-11-19 13:57 | ECHOF ---
Referral Reason:[facility] valve MEASUREMENTS -------- HEIGHT: 172.7 cm WEIGHT: 80.3 kg BP: 110/43 IVSd: 1.6 cm (0.6 - 1.1) LVIDd: 4.2 cm (3.9 - 5.3) LVPWd: 1.7 cm (0.6 - 1.1) IVSs: 1.9 cm LVIDs: 3.0 cm LVPWs: 2.3 cm RVIDd: 4.5 cm (< 3.3) LAESV Index (A-L): 47.94 ml/m EPSS: 0.3 cm MV E Abner: 0.76 m/s MV DecT: 244 ms MV A Abner: 0.79 m/s MV E/A Ratio: 0.96 AV maxP.17 mmHg AV meanP.06 mmHg RAP: 5.00 mmHg RVSP: 35.04 mmHg MV EF SLOPE: 28.72 mm/s (70 - 150) MV EXCURSION: 19.78 mm (> 18.000) FINDINGS -------- A-V paced rhythm. This was a technically adequate study. The left ventricular size is normal. There is moderate concentric left ventricular hypertrophy. O verall left ventricular systolic function is low-normal with, an EF between 50 - 55 %. Increased La p Grade II Diastolic Dysfunction. Septal wall motion is delayed and consistent with prior cardiac s urgery. The right ventricle is moderately enlarged. LA is severely dilated >40 ml/m2 The right atrium is moderately enlarged. Electronic pacemaker lead seen in the right atrial cavity. Interatrial and interventricular septum intact. Peak/mean gradient across the Aortic Valve is 44.17mmHg / 28.06mmHg. There is physiologic regurgita tion of the Mechanical prosthetic aortic valve. Mild mitral annular calcification present. Bksrapva-cs-hrdfow mitral regurgitation is present. Hmif-cw-uaaidomf tricuspid regurgitation present. There is mild pulmonary hypertension. The right ventricular systolic pressure, as measured by Doppler, is 35.04mmHg. There is no pulmonic regurgitation present. The aortic root size is normal. IVC Not well visulized. There is no pericardial effusion. CONCLUSIONS -------- 1. A-V paced rhythm. 2. This was a technically adequate study. 3. The left ventricular size is normal. 4. There is moderate concentric left ventricular hypertrophy. 5. Overall left ventricular systolic function is low-normal with, an EF between 50 - 55 %. 6. Increased Lap Grade II Diastolic Dysfunction. 7. Septal wall motion is delayed and consistent with prior cardiac surgery. 8. The right ventricle is moderately enlarged. 9. LA is severely dilated >40 ml/m2 10. The right atrium is moderately enlarged. 11. Electronic pacemaker lead seen in the right atrial cavity. 12. Interatrial and interventricular septum intact. 13. Peak/mean gradient across the Aortic Valve is 44.17mmHg / 28.06mmHg. 14. There is physiologic regurgitation of the Mechanical prosthetic aortic valve. 15. Mild mitral annular calcification present. 16. Ilgrmagm-gm-vbcisd mitral regurgitation is present. 17. Fncv-el-kurihwey tricuspid regurgitation present. 18. There is mild pulmonary hypertension. 19. The right ventricular systolic pressure, as measured by Doppler, is 35.04mmHg. 20. There is no pulmonic regurgitation present. 21. The aortic root size is normal. 22. IVC Not well visulized. 23. There is no pericardial effusion. [employer]: Stefanie Darling RDCS
[2019-11-19] MEDS ORDERED: HEPARIN SODIUM,PORCINE 5,000 UNIT/ML 1 ML VIAL IV PRN (14:28)
[2019-11-19 14:50] LABS: Basophils % (A) 0 %; Eosinophils # (A) 0.2 k/uL (0-0.7); Eosinophils % (A) 2 %; HCT 33.9 % (34.0-46.0); HGB 10.6 gm/dL (11.4-16.0); Hypochromasia Slight; Lymphocytes % (A) 10 %; MCH 30.4 pg (25.0-35.0); MCHC 31.3 g/dL (31.0-37.0); MCV 96.9 fL (80.0-100.0); Mean Platelet Volume 7.8; Monocytes # (A) 0.4 k/uL (0-1.0); Monocytes % (A) 5 %; Neutrophils # (A) 7.7 k/uL (1.3-7.7); Neutrophils % (A) 81 %; Platelet Count 178 k/uL (150-450); RBC 3.49 m/uL (3.80-5.40); RDW 14.8 % (11.5-15.5); WBC 9.6 k/uL (3.8-10.6)
[2019-11-19 14:58] LABS: INR 1.5 (<1.2); Partial Thromboplastin Time 26.8 sec (22.0-30.0); Prothrombin Time 14.4 sec (9.0-12.0)
[2019-11-19] MEDS: HEPARIN SOD,PORK IN 0.45% NACL 25,000 UNIT in 0.45% NACL 1 250ML.BAG IV SCH (15:04)
[2019-11-19] MEDS: PRAVASTATIN SODIUM 20 MG TAB PO SCH (21:14)
[2019-11-20] MEDS: metroNIDAZOLE-NS PMX 500 MG in SALINE 1 100ML.BAG IVPB SCH ×3 (00:12→17:08)
[2019-11-20 04:46] LABS: Basophils % (A) 0 %; Eosinophils # (A) 0.3 k/uL (0-0.7); Eosinophils % (A) 4 %; HCT 31.2 % (34.0-46.0); Hypochromasia Slight; Lymphocytes % (A) 11 %; MCH 31.6 pg (25.0-35.0); MCHC 32.1 g/dL (31.0-37.0); MCV 98.3 fL (80.0-100.0); Mean Platelet Volume 7.7; Monocytes # (A) 0.4 k/uL (0-1.0); Monocytes % (A) 5 %; Neutrophils # (A) 6.6 k/uL (1.3-7.7); Neutrophils % (A) 79 %; Platelet Count 163 k/uL (150-450); RBC 3.17 m/uL (3.80-5.40); RDW 14.8 % (11.5-15.5); WBC 8.3 k/uL (3.8-10.6)
[2019-11-20 05:20] LABS: Calcium 10.3 mg/dL (8.4-10.2); Potassium 4.4 mmol/L (3.5-5.1)
[2019-11-20] MEDS: SODIUM CHLORIDE 0.9% 1,000 ML IV SCH ×3 (06:06→22:24)
[2019-11-20] MEDS: PANTOPRAZOLE 40 MG/10 ML VIAL IVP SCH ×2 (10:28→22:20)
[2019-11-20] MEDS: AMIODARONE 100 MG TAB PO SCH (10:29)
[2019-11-20] MEDS: SPIRONOLACTONE 25 MG TAB PO SCH (10:29)
--- NOTE | 2019-11-20 11:08 | P.PN ---
Progress Note - Text Progress Note Date: 11/20/19 The patient is resting comfortably in bed. She denies any significant abdominal pain. She denies any nausea or vomiting. She is tolerating clear liquid diet. On exam her vital signs are stable. Her abdomen soft. Patient will have her diet advanced to full liquid diet. She'll be closely ob served for her gastric ischemia.
--- NOTE | 2019-11-20 11:15 | PN ---
PROGRESS NOTE DATE OF DICTATION: November 20, 2019 Patient is a 74-year-old pleasant white female admitted to the hospital with abdominal pain associated with nausea, vomiting, and black tarry stools. She has history of atrial fibrillation and valve replacement, has been on Coumadin which is currently on hold. She underwent an upper endoscopy yesterday that showed ischemic appearing gastritis involving the fundus and proximal body of the stomach. Biopsies were done just pending. She is being monitored closely in the intensive care unit. Surgery was consulted and Dr. Escobar evaluated the patient yesterday and recommended observation. She remains on broad-spectrum antibiotics currently. She denies any symptoms today. She reports no abdominal pain. No nausea, vomiting. Remains on a clear liquid diet tolerating well. PHYSICAL EXAMINATION: Appears comfortable, no apparent distress. Vital signs stable. Blood pressure is 129/87, pulse is 64, temperature 98. HEENT examination unremarkable. Conjunctivae pink. Sclerae anicteric. Oral cavity no lesions. NECK: No JVD or lymph node enlargement. CHEST: Clear to auscultation. HEART: Regular rate and rhythm. ABDOMEN: Soft. Bowel sounds are positive. No organomegaly. EXTREMITIES: No pedal edema. SKIN no rashes. NEUROLOGIC: Alert and oriented x3. No focal deficits. LABS: From today WBC 8.3, hemoglobin 10, platelets normal. Basic metabolic panel, BUN and creatinine are 26 and 1.47 respectively. IMPRESSION: 1. Acute upper gastrointestinal bleed, status post EGD yesterday that showed changes in the fundus and proximal body of the stomach consistent with ischemic gastritis clinically doing well. Dr. Escobar following the patient closely. Biopsies are still pending. 2. History of aortic valve replacement and atrial fibrillation. Coumadin currently on hold. 3. Hypertension resolving. 4. Acute on chronic kidney disease with stable BUN and creatinine. RECOMMENDATIONS: 1. Continue with a clear liquid diet. 2. Continue with antibiotics. 3. Monitor CBC on a daily basis. 4. Continue Protonix 40 mg daily. 5. Repeat CBC in the morning and we will follow with you closely. Thank you for this consultation. MMODL / IJN: [id number] /
[2019-11-20] MEDS: HEPARIN SOD,PORK IN 0.45% NACL 25,000 UNIT in 0.45% NACL 1 250ML.BAG IV SCH (14:30)
--- NOTE | 2019-11-20 14:38 | P.PN ---
Subjective Progress Note Date: 11/20/19 Principal diagnosis: Lower GI bleeding, diverticulitis/colitis This is a 74-year-old female with history of multiple medical problems including chronic atrial fibrillation, history of aortic valve replacement with mechanical aortic valve. Patient is maintained on Coumadin. She is also known to have history of underlying congestive heart failure, cardiomyopathy and LV dysfunc tion. Patient presented to the ER last night with mostly symptoms of dizziness and weakness. Patient also noted some blood in her toilet. Upon evaluation in the ER, patient was noted to have a hemoglobin of 12, she had positive stool for Hemoccult. And she was noted to have elevated BUN and creatinine 59 and 1.6 respectively. Her INR was actually subtherapeutic although the patient was on Coumadin. CT of the abdomen and pelvis was done and it showed mostly sigmoid inflammatory changes. Suggestive of colitis or diverticulitis. Patient was placed on antibiotics in the form of Levaquin and Flagyl. While in the ER, the patient was noted to have marginally low blood pressure. Hence arrangements were made to admit the patient to the intensive care unit. Patient was seen by many consultants since admission including cardiology, gastroenterology, and presently her Coumadin is on hold. She was told by gastroenterology that she would have EGD tomorrow. Since admission, the patient did not require any blood transfusion, and her hemoglobin this morning is 12.3. Patient is receiving fluid in the form of 0.9 normal saline at 75 mL/h and she is noted to be clinically dehydrated. She is also on norepinephrine at 4 mcg/m. Patient continues to have some maroon colored stools since admission. And intermittent episodes of diarrhea. Patient was reevaluated today on 11/15/19, remains in the intensive care unit, but the patient seems to be doing quite well. Relatively asymptomatic, no further episodes of bleeding. And her diarrhea seems to be better controlled. Hemoglobin is 11.2 today, WBC count is 9.3, elect lites are normal renal profile is improving with a BUN of 32 creatinine is 1.51. Patient underwent EGD today, and she was found to have severe ischemic-appearing gastritis involving the proximal body and entire fundus of the stomach. There was also mucosal erythe ma, friability, congestion, and superficial ulceration with bluish discoloration of the mucosa. But no active bleeding. Hence the patient was seen by general surgery on consultation, and felt that the patient is doing well clinically, hence I recommended observation, may or may not require exploratory laparotomy. This is yet to be determined. Reevaluated today on 11/20/19, patient is doing well, asymptomatic, she is on room air. Seen by surgery again, and no plans for any surgical intervention in spite of her significant abnormal findings on EGD. No further episodes of GI bleeding. Her CBC is relatively normal hemoglobin is holding at 10 electrolytes are normal BUN is 26 creatinine is improving 1.47 today. Patient seems to be improving with hydration. Patient was placed back on heparin because of her mechanical valve, and her PTT is 63.7. Again no further episodes of GI bleeding in spite of being back on heparin. Objective - Vital Signs Vital signs: Vital Signs Temp 97.8 F 11/20/19 12:00 Pulse 63 11/20/19 12:00 Resp 8 L 11/20/19 12:00 BP 125/48 11/20/19 12:00 Pulse Ox 97 11/20/19 12:00 Intake & Output 11/19/19 11/20/19 11/20/19 18:59 06:59 18:59 Intake Total 3449.354 7074.731 988.919 Output Total 710 830 320 Balance 806.291 519.731 668.919 Weight 89 kg Intake: IV 1250 1200 520 Sodium Chloride 0.9% 1, 1100 900 320 000 ml @ 100 mls/hr IV . Q10H [facility] Rx#:[id number] metroNIDAZOLE-NS PMX 500 100 mg In Saline 1 100ml.bag @ 100 mls/hr IVPB ONCE [facility] Rx#:[id number] metroNIDAZOLE-NS PMX 500 300 200 mg In Saline 1 100ml.bag @ 100 mls/hr IVPB Q8HR [facility] Rx#:[id number] Intake, IV Titration 16.291 149.731 68.919 Amount Heparin Sod,Pork in 0.45% 149.731 68.919 NaCl 25,000 unit In 0.45 % NaCl 1 250ml.bag @ 11.5 UNITS/KG/HR 9.971 mls/hr IV .Q24H [facility] Rx#: [id number] Norepinephrine 8 mg In 16.291 Sodium Chloride 0.9% 250 ml @ 0.05 MCG/KG/MIN 7. 768 mls/hr IV .Q24H [facility] Rx#:[id number] Oral 250 400 Output: Urine 710 830 320 Other: Voiding Method Indwelling Catheter Indwelling Catheter Indwelling Catheter - Exam Physical Exam: Revealed a 74-year-old female, in no distress. Patient is on room air. Head: Atraumatic, normocephalic. HEENT: PERRLA, EOMI, no icterus. [Neck is supple.] [No neck masses.] [No thyromegaly.] [No JVD.] Chest: [Symmetrical chest expansion, diminished breath sounds at the bases minimal crackles at the bases. No wheezes. Cardiac Exam: [Normal S1 and S2, positive mechanical valve sound. In the right parasternal area, over aortic valve 2/6 systolic murmur in the left lower sternal border. Abdomen: [Soft, nontender, no megaly, no rebound, no guarding, normal bowel sounds.] Extremities: [No clubbing, no edema, no cyanosis.] Neurological Exam: [No focal neurologic deficit.] Alert and oriented 3, no gross focal neurologic deficits. Psychiatric: Normal mood affect and normal mental status examination. Skin: No rashes. Lymphatics: No lymphadenopathy. - Labs CBC & Chem 7: 11/20/19 04:30 11/20/19 04:30 Labs: Abnormal Lab Results - Last 24 Hours (Table) 11/19/19 11/19/19 11/19/19 Range/Units 14:40 14:40 20:35 RBC 3.49 L (3.80-5.40) m/uL Hgb 10.6 L (11.4-16.0) gm/dL Hct 33.9 L (34.0-46.0) % PT 14.4 H (9.0-12.0) sec INR 1.5 H (<1.2) APTT 50.5 H (22.0-30.0) sec Chloride (98-107) mmol/L Carbon Dioxide (22-30) mmol/L BUN (7-17) mg/dL Creatinine (0.52-1.04) mg/dL Calcium (8.4-10.2) mg/dL 11/20/19 11/20/19 11/20/19 Range/Units 04:30 04:30 04:30 RBC 3.17 L (3.80-5.40) m/uL Hgb 10.0 L (11.4-16.0) gm/dL Hct 31.2 L (34.0-46.0) % PT (9.0-12.0) sec INR (<1.2) APTT 73.0 H (22.0-30.0) sec Chloride 116 H (98-107) mmol/L Carbon Dioxide 19 L (22-30) mmol/L BUN 26 H (7-17) mg/dL Creatinine 1.47 H (0.52-1.04) mg/dL Calcium 10.3 H (8.4-10.2) mg/dL 11/20/19 Range/Units 11:25 RBC (3.80-5.40) m/uL Hgb (11.4-16.0) gm/dL Hct (34.0-46.0) % PT (9.0-12.0) sec INR (<1.2) APTT 63.7 H (22.0-30.0) sec Chloride (98-107) mmol/L Carbon Dioxide (22-30) mmol/L BUN (7-17) mg/dL Creatinine (0.52-1.04) mg/dL Calcium (8.4-10.2) mg/dL Microbiology - Last 24 Hours (Table) 11/18/19 04:12 Blood Culture - Preliminary Blood No Growth after 48 hours Assessment and Plan Assessment: Impression: Suspect acute lower GI bleeding secondary to ischemic gastritis , patient had significantly abnormal EGD. No plans for surgical intervention at this point. History of mechanical aortic valve. Patient was placed back on heparin, and so far no further episodes of bleeding. Remote history of CVA/TIA. Acute colitis/diverticulitis, Acute on chronic kidney disease, could be related to hypovolemia and hypotension/acute tubular necrosis. Improving. Hypotension secondary to hypovolemia, strongly doubt sepsis. Continue hydration. Recommendation: Transfer patient to a monitor bed on selective today. Monitor closely for any further episodes of GI bleeding, and hold heparin again if patient develops any form of bleeding. Continue Protonix. Continue hydration cautiously, Resume home meds. Depending on her blood pressure, her home blood pressure medication will be restarted gradually. Continue empiric antibiotics. We'll continue to follow. Time with Patient: Less than 30
--- NOTE | 2019-11-20 14:47 | P.PN ---
Subjective Progress Note Date: 11/20/19 Alix Odonnell, is a 74-year-old female who was at her home sitting on the toilet when she felt very weak and dizzy, she was unable to stand up, she managed to call EMS who came to her home and helped her up her toilet seat she stated that they told her that there was blood in the toilet, patient was brought in to [facility] emergency room she was evaluated by Dr. Carlos hemoglobin was 12 Stool Hemoccult was positive BUN and creatinine was elevated at 39 and 1.6 patient has a known history of mechanical valve she is maintained on Coumadin, her INR on presentation was low at 1.3. Computed tomography scan of abdomen and pelvis without contrast was done in the emergency room and r evealed evidence of sigmoid colon inflammatory changes suggestive of colitis or diverticulitis she was started on IV antibiotics Levaquin and Flagyl in the emergency room. Patient was admitted to intensive care unit, cardiology consultation gastroenterology consultation and critical care consultations were requested. Patient was seen and examined in ICU she is alert and oriented 3 in no apparent distress she is complaining of generalized weakness otherwise she denies any complaints there is no fever or chills no headache or dizziness no chest pain no shortness of breath no cough no nausea or vomiting no abdominal pain no diarrhea no burning with urination no frequency or urgency and no hematuria. Her past medical history is significant for chronic systolic congestive heart failure, chronic kidney disease stage III, history of atrial fibrillation, history of stroke with residual left sided weakness, history of aortic mechanical valve replacement, maintained on Coumadin, remote history of abdominal aortic dissection and repair. On 11/19/2019 patient was seen and examined in the ICU, she is alert and oriented 3 in no apparent distress, there is no fever or chills no headache or dizziness no chest pain no shortness of breath no cough no nausea or vomiting no abdominal pain no diarrhea no burning with urination no frequency or urgency and no hematuria, patient underwent an EGD with Dr. Webb, results reviewed, input from Gen. surgery reviewed, at this time no surgical intervention scheduled, will start patient on full therapeutic dose of Lovenox until further decision in regard to any intervention is taken, if no intervention is required will start patient back on her Coumadin. On 11/20/2019 patient was seen and examined in the intensive care unit, she is alert and oriented 3 in no apparent distress there is no fever or chills no headache or dizziness no chest pain no shortness of breath no cough no nausea or vomiting no abdominal pain no diarrhea no burning was urination no frequency or urgency and no hematuria she is maintained on IV heparin drip Objective - Vital Signs Vital signs: Vital Signs Temp 97.8 F 11/20/19 12:00 Pulse 63 11/20/19 12:00 Resp 8 L 11/20/19 12:00 BP 125/48 11/20/19 12:00 Pulse Ox 97 11/20/19 12:00 Intake & Output 11/19/19 11/20/19 11/20/19 18:59 06:59 18:59 Intake Total 9130.595 4406.731 988.919 Output Total 710 830 320 Balance 806.291 519.731 668.919 Weight 89 kg Intake: IV 1250 1200 520 Sodium Chloride 0.9% 1, 1100 900 320 000 ml @ 100 mls/hr IV . Q10H [facility] Rx#:[id number] metroNIDAZOLE-NS PMX 500 100 mg In Saline 1 100ml.bag @ 100 mls/hr IVPB ONCE STA Rx#:[id number] metroNIDAZOLE-NS PMX 500 300 200 mg In Saline 1 100ml.bag @ 100 mls/hr IVPB Q8HR [facility] Rx#:[id number] Intake, IV Titration 16.291 149.731 68.919 Amount Heparin Sod,Pork in 0.45% 149.731 68.919 NaCl 25,000 unit In 0.45 % NaCl 1 250ml.bag @ 11.5 UNITS/KG/HR 9.971 mls/hr IV .Q24H [facility] Rx#: [id number] Norepinephrine 8 mg In 16.291 Sodium Chloride 0.9% 250 ml @ 0.05 MCG/KG/MIN 7. 768 mls/hr IV .Q24H [facility] Rx#:[id number] Oral 250 400 Output: Urine 710 830 320 Other: Voiding Method Indwelling Catheter Indwelling Catheter Indwelling Catheter - Exam In general patient is alert and oriented 3 in no apparent distress HEENT head normocephalic and atraumatic Neck is supple no JVD no goiter no lymphadenopathy Chest exam reveals a few scattered rhonchi no wheezing Cardiac exam reveals regular heart sounds S1 and S2, with accentuated S2 and 3/6 systolic murmur in the left sternal border Abdomen is soft nontender no organomegaly with normal bowel sounds Extremity exam reveals no edema no cyanosis or clubbing Neurological examination reveals no acute gross deficit, chronic mild left sided weakness as compared to the right - Labs CBC & Chem 7: 11/20/19 04:30 11/20/19 04:30 Labs: Abnormal Lab Results - Last 24 Hours (Table) 11/19/19 11/19/19 11/19/19 Range/Units 14:40 14:40 20:35 RBC 3.49 L (3.80-5.40) m/uL Hgb 10.6 L (11.4-16.0) gm/dL Hct 33.9 L (34.0-46.0) % PT 14.4 H (9.0-12.0) sec INR 1.5 H (<1.2) APTT 50.5 H (22.0-30.0) sec Chloride (98-107) mmol/L Carbon Dioxide (22-30) mmol/L BUN (7-17) mg/dL Creatinine (0.52-1.04) mg/dL Calcium (8.4-10.2) mg/dL 11/20/19 11/20/19 11/20/19 Range/Units 04:30 04:30 04:30 RBC 3.17 L (3.80-5.40) m/uL Hgb 10.0 L (11.4-16.0) gm/dL Hct 31.2 L (34.0-46.0) % PT (9.0-12.0) sec INR (<1.2) APTT 73.0 H (22.0-30.0) sec Chloride 116 H (98-107) mmol/L Carbon Dioxide 19 L (22-30) mmol/L BUN 26 H (7-17) mg/dL Creatinine 1.47 H (0.52-1.04) mg/dL Calcium 10.3 H (8.4-10.2) mg/dL 11/20/19 Range/Units 11:25 RBC (3.80-5.40) m/uL Hgb (11.4-16.0) gm/dL Hct (34.0-46.0) % PT (9.0-12.0) sec INR (<1.2) APTT 63.7 H (22.0-30.0) sec Chloride (98-107) mmol/L Carbon Dioxide (22-30) mmol/L BUN (7-17) mg/dL Creatinine (0.52-1.04) mg/dL Calcium (8.4-10.2) mg/dL Microbiology - Last 24 Hours (Table) 11/18/19 04:12 Blood Culture - Preliminary Blood No Growth after 48 hours Assessment and Plan Plan: 1. Generalized weakness, likely related to dehydration 2. Rectal bleeding 3. Underlying history of congestive heart failure with cardiomyopathy 4. Underlying history of mechanical aortic valve replacement maintained on Coumadin 5. Underlying history of atrial fibrillation 6. Remote history of stroke 7. Evidence of colitis versus diverticulitis on computed tomography scan of the abdomen in the sigmoid colon patient was started on IV antibiotic Levaquin and Flagyl, will continue at this time. 8. Underlying history of chronic kidney disease stage III Will monitor CBC closely Patient is admitted to intensive care unit pulmonary critical care consultation requested in the emergency room, cardiology and gastroenterology consultation requested. I reviewed and reordered home medications. Cardiology and gastroenterology to decide in regard to anticoagulation and aspirin use Prognosis is guarded due to severity of illness, and the presence of gastrointestinal bleeding in the face of need to use anticoagulation.
[2019-11-21] MEDS: metroNIDAZOLE-NS PMX 500 MG in SALINE 1 100ML.BAG IVPB SCH ×4 (00:28→23:00)
[2019-11-21] MEDS: PRAVASTATIN SODIUM 20 MG TAB PO SCH ×2 (00:28→20:21)
[2019-11-21] MEDS: SODIUM CHLORIDE 0.9% 1,000 ML IV SCH ×3 (05:17→20:22)
[2019-11-21 05:47] LABS: Basophils % (A) 1 %; Eosinophils # (A) 0.4 k/uL (0-0.7); Eosinophils % (A) 8 %; HCT 29.9 % (34.0-46.0); HGB 9.7 gm/dL (11.4-16.0); Hypochromasia Slight; Lymphocytes % (A) 19 %; MCH 31.4 pg (25.0-35.0); MCHC 32.4 g/dL (31.0-37.0); MCV 96.9 fL (80.0-100.0); Monocytes # (A) 0.3 k/uL (0-1.0); Monocytes % (A) 5 %; Neutrophils # (A) 3.6 k/uL (1.3-7.7); Neutrophils % (A) 65 %; Platelet Count 159 k/uL (150-450); RBC 3.08 m/uL (3.80-5.40); RDW 14.6 % (11.5-15.5); WBC 5.5 k/uL (3.8-10.6)
[2019-11-21 05:59] LABS: INR 1.2 (<1.2); Partial Thromboplastin Time 40.3 sec (22.0-30.0); Prothrombin Time 12.1 sec (9.0-12.0)
--- NOTE | 2019-11-21 06:00 | P.PN ---
Subjective Progress Note Date: 11/20/19 Patient seen on 19 November Patient is resting comfortably in bed. She denies any chest discomfort or shortness of breath no respiratory distress no abdominal pain She was admitted to the hospital with nausea vomiting and black starry stools following which she underwent endoscopy. This showed an ischemic appearing gastritis involving the fundus in the proximal body of the stomach She was subtherapeutic on Coumadin. She has atrial fibrillation and mechanical aortic valve replacement She was restarted on heparin. Surgery was consulted. Conservative management is recommended by them Hemoglobin 10 Sodium 138 potassium 4.0 BUN 26 creatinine 1.47 On examination abdomen is soft S2 is crisp, systolic murmur Breath sounds are clear no rhonchi no crackles She looks very comfortable no JVD She is titubation Impression GI bleeding bleeding secondary to possible ischemic gastritis Patient with mechanical aortic valve Dual-chamber pacemaker, AV sequential pacing History of atrial fibrillation History of Coumadin subtherapeutic upon admission Preserved LV systolic function on echo Mitral regurgitation Suggest Continue heparin IV Continue oral amiodarone 100 mg by mouth daily Pravachol 20 mg by mouth daily spironolactone 25 mg daily Will reintroduce carvedilol 6.25 by mouth twice a day Watch hemoglobin Hold off on starting Coumadin for now, continue heparin Objective - Vital Signs Vital signs: Vital Signs Temp 99.2 F 11/20/19 16:00 Pulse 60 11/21/19 02:00 Resp 11 L 11/21/19 02:00 BP 125/50 11/21/19 02:00 Pulse Ox 94 L 11/21/19 02:00 Intake & Output 11/20/19 11/20/19 11/21/19 06:59 18:59 06:59 Intake Total 7737.196 2747.919 300 Output Total 830 865 930 Balance 519.731 283.919 -630 Weight 89 kg 90 kg Intake: IV 1200 680 300 Sodium Chloride 0.9% 1, 900 380 300 000 ml @ 100 mls/hr IV . Q10H [facility] Rx#:[id number] metroNIDAZOLE-NS PMX 500 300 300 mg In Saline 1 100ml.bag @ 100 mls/hr IVPB Q8HR [facility] Rx#:[id number] Intake, IV Titration 149.731 68.919 Amount Heparin Sod,Pork in 0.45% 149.731 68.919 NaCl 25,000 unit In 0.45 % NaCl 1 250ml.bag @ 11.5 UNITS/KG/HR 9.971 mls/hr IV .Q24H [facility] Rx#: [id number] Oral 400 Output: Urine 830 865 930 Other: Voiding Method Indwelling Catheter Indwelling Catheter Indwelling Catheter - Labs CBC & Chem 7: 11/21/19 05:00 11/20/19 04:30 Labs: Abnormal Lab Results - Last 24 Hours (Table) 11/20/19 11/21/19 Range/Units 11:25 05:00 RBC 3.08 L (3.80-5.40) m/uL Hgb 9.7 L (11.4-16.0) gm/dL Hct 29.9 L (34.0-46.0) % APTT 63.7 H (22.0-30.0) sec Microbiology - Last 24 Hours (Table) 11/18/19 04:12 Blood Culture - Preliminary Blood No Growth after 48 hours
[2019-11-21 06:03] LABS: Albumin 2.1 g/dL (3.5-5.0); Calcium 10.1 mg/dL (8.4-10.2); Potassium 4.3 mmol/L (3.5-5.1); Total Bilirubin 0.2 mg/dL (0.2-1.3); Total Protein 4.8 g/dL (6.3-8.2)
--- NOTE | 2019-11-21 09:09 | P.PN ---
Subjective Progress Note Date: 11/21/19 Principal diagnosis: valvular heart disease this is a 74-year-old female patient with a past medical history significant for valvular heart disease and status post mechanical valve in aortic position, dual chamber pacemaker, and history of paroxysmal atrial fibrillation, who was admitted to the hospital with ischemic bowel disease. The patient was seen this morning, 11/21/2019. The patient underwent an endoscopy. This morning she stated that she is completely asymptomatic and no abdominal pain or abdominal discomfort. No chest pain or chest discomfort. She remains hemodynamically stable. Currently she is on heparin IV. Coumadin is on hold. The patient is not going to undergo any further investigation or procedure at this point of having stated that M going to start the patient back on Coumadin with giving her 5 mg today and check INR tomorrow. Meanwhile we'll continue heparin IV. Objective - Vital Signs Vital signs: Vital Signs Temp 99.2 F 11/20/19 16:00 Pulse 65 11/21/19 06:00 Resp 20 11/21/19 06:00 BP 152/58 11/21/19 06:00 Pulse Ox 95 11/21/19 06:00 Intake & Output 11/20/19 11/21/19 11/21/19 18:59 06:59 18:59 Intake Total 1148.919 300 136.322 Output Total 865 930 Balance 283.919 -630 136.322 Weight 90 kg Intake: IV 680 300 Sodium Chloride 0.9% 1, 380 300 000 ml @ 100 mls/hr IV . Q10H [facility] Rx#:[id number] metroNIDAZOLE-NS PMX 500 300 mg In Saline 1 100ml.bag @ 100 mls/hr IVPB Q8HR [facility] Rx#:[id number] Intake, IV Titration 68.919 136.322 Amount Heparin Sod,Pork in 0.45% 68.919 136.322 NaCl 25,000 unit In 0.45 % NaCl 1 250ml.bag @ 11.5 UNITS/KG/HR 9.971 mls/hr IV .Q24H [facility] Rx#: [id number] Oral 400 Output: Urine 865 930 Other: Voiding Method Indwelling Catheter Indwelling Catheter - Constitutional General appearance: Present: no acute distress - Respiratory Respiratory: bilateral: diminished - Cardiovascular Rhythm: regular - Labs CBC & Chem 7: 11/21/19 05:00 11/21/19 05:00 Labs: Abnormal Lab Results - Last 24 Hours (Table) 11/20/19 11/21/19 11/21/19 Range/Units 11:25 05:00 05:00 RBC 3.08 L (3.80-5.40) m/uL Hgb 9.7 L (11.4-16.0) gm/dL Hct 29.9 L (34.0-46.0) % PT 12.1 H (9.0-12.0) sec INR 1.2 H (<1.2) APTT 63.7 H 40.3 H (22.0-30.0) sec Chloride (98-107) mmol/L Carbon Dioxide (22-30) mmol/L BUN (7-17) mg/dL Creatinine (0.52-1.04) mg/dL Total Protein (6.3-8.2) g/dL Albumin (3.5-5.0) g/dL 11/21/19 Range/Units 05:00 RBC (3.80-5.40) m/uL Hgb (11.4-16.0) gm/dL Hct (34.0-46.0) % PT (9.0-12.0) sec INR (<1.2) APTT (22.0-30.0) sec Chloride 115 H (98-107) mmol/L Carbon Dioxide 20 L (22-30) mmol/L BUN 21 H (7-17) mg/dL Creatinine 1.42 H (0.52-1.04) mg/dL Total Protein 4.8 L (6.3-8.2) g/dL Albumin 2.1 L (3.5-5.0) g/dL Microbiology - Last 24 Hours (Table) 11/18/19 04:12 Blood Culture - Preliminary Blood No Growth after 72 hours Assessment and Plan Assessment: assessment #1 ischemic cold disease #2 paroxysmal atrial fibrillation #3 valvular heart disease as described above #4 multiple comorbid conditions #5 status post permanent pacemaker Plan #1 continue heparin IV #2 start the patient on Coumadin #3 continue heparin until the Coumadin is therapeutic #4 follow-up with the patient
[2019-11-21] MEDS: SPIRONOLACTONE 25 MG TAB PO SCH (10:13)
[2019-11-21] MEDS: PANTOPRAZOLE 40 MG/10 ML VIAL IVP SCH ×2 (10:13→20:21)
--- NOTE | 2019-11-21 10:16 | PN ---
PROGRESS NOTE PULMONARY/CRITICAL CARE PROGRESS NOTE: DATE OF SERVICE: 11/21/2019 This is a 74-year-old female who was admitted on November 17 with a diagnosis of GI bleed. The patient is apparently a med/surg overflow patient in here in the ICU. She had an EGD performed on November 18 which showed ischemic gastritis. She has received no blood since she has been here. She does have a history of a mechanical aortic valve. She is currently on an IV heparin drip. There has been no further bleeding. She is not receiving any supplemental oxygen. His saline IV is running at 100 mL an hour. In addition, she has a history of CVA, acute colitis and diverticulitis, acute on chronic kidney disease, and hypotension, secondary to the GI bleed. Currently, the patient is being considered for transfer out to the medical-surgical floor. She did test negative for COVID-19 infection. Current vital signs are reviewed, temperature is 99.2, heart rate 60, respiratory rate between 11 and 15 breaths per minute, blood pressure 125/50 with mean at 75, saturations are 94% on room air. Appears in no acute distress. HEENT: Examination is grossly unremarkable. No supplemental oxygen. NECK: Supple, full range of motion. No adenopathy. Neck veins are flat. CARDIOVASCULAR: Examination reveals regular rhythm and rate. The patient has a very loud click and a systolic murmur. S1, S2, otherwise normal. LUNGS: Clear breath sounds equal. No wheezes. ABDOMEN: Soft. Bowel sounds are noted. EXTREMITIES: Intact. No cyanosis, clubbing, or edema. SKIN: Without rash. NEUROLOGIC: Examination is brief but nonfocal. LABS: Reviewed. White count 5.5, hemoglobin 9.7, hematocrit 29.9, platelet count 189,000. PT 12.1, INR 1.2, PTT is 40.3. Sodium and potassium were normal. Chloride is 115, CO2 is 20, anion gap is 2. BUN and creatinine were 21 and 1.42. The rest of the labs look okay. No recent chest x-rays to report. Microbiology is all negative. MEDICATIONS: Include Tylenol, Cordarone, Colace, IV heparin, Flagyl, Narcan, Zofran, Protonix, pravastatin, and Aldactone. In addition to the heparin drip, the patient is on saline at 100 mL an hour. ASSESSMENT: 1. Acute gastrointestinal bleed, secondary to ischemic gastritis, status post EGD on November 18. 2. History of mechanical aortic valve, currently on IV heparin therapy. 3. Remote history of CVA/TIA. 4. History of acute colitis. 5. History of diverticular disease. 6. History of acute on chronic kidney disease. 7. Hypotension, resolved. PLAN: The patient is doing well. The patient was seen by Dr. Vale yesterday. He thought the patient could be transferred out to the general medical floor. The patient is otherwise very stable. He has not received any blood. Current blood pressure is stable. Home medications can be resumed. will continue to follow. Prognosis is guarded. MMODL / IJN: [id number] /
[2019-11-21] MEDS: AMIODARONE 100 MG TAB PO SCH (12:43)
--- NOTE | 2019-11-21 12:54 | P.PN ---
Subjective Progress Note Date: 11/21/19 CHIEF COMPLAINT: Ischemic gastritis HISTORY OF PRESENT ILLNESS: Patient examined at the bedside with Dr. Escobar. Patient is tolerating diet without nausea or vomiting. She denies abdominal pain. PHYSICAL EXAM: VITAL SIGNS: Reviewed. GENERAL: Well-developed in no acute distress. HEENT: No sclera icterus. Extraocular movements grossly intact. Moist buccal mucosa. Head is atraumatic, normocephalic. ABDOMEN: Soft. Nondistended. Nontender. NEUROLOGIC: Alert and oriented. Cranial nerves II through XII grossly intact. ASSESSMENT: 1. Ischemic stomach PLAN: -Advance diet to Regular -No surgical intervention intervention at this time Nurse practitioner note has been reviewed by physician. Signing provider agrees with the documented findings, assessment, and plan of care. Objective - Vital Signs Vital signs: Vital Signs Temp 97.7 F 11/21/19 09:30 Pulse 77 11/21/19 09:30 Resp 16 11/21/19 09:34 BP 148/69 11/21/19 09:30 Pulse Ox 96 11/21/19 09:30 Intake & Output 11/20/19 11/21/19 11/21/19 18:59 06:59 18:59 Intake Total 1148.919 300 836.322 Output Total 865 930 Balance 283.919 -630 836.322 Weight 90 kg Intake: IV 680 300 100 Sodium Chloride 0.9% 1, 380 300 000 ml @ 100 mls/hr IV . Q10H [place] Rx#:[id number] metroNIDAZOLE-NS PMX 500 300 100 mg In Saline 1 100ml.bag @ 100 mls/hr IVPB Q8HR [place] Rx#:[id number] Intake, IV Titration 68.919 136.322 Amount Heparin Sod,Pork in 0.45% 68.919 136.322 NaCl 25,000 unit In 0.45 % NaCl 1 250ml.bag @ 11.5 UNITS/KG/HR 9.971 mls/hr IV .Q24H [place] Rx#: [id number] Oral 400 600 Output: Urine 865 930 Other: Voiding Method Indwelling Catheter Indwelling Catheter Toilet - Labs CBC & Chem 7: 11/21/19 05:00 11/21/19 05:00 Labs: Abnormal Lab Results - Last 24 Hours (Table) 0511/21/19 11/21/19 Range/Units 05:00 05:00 05:00 RBC 3.08 L (3.80-5.40) m/uL Hgb 9.7 L (11.4-16.0) gm/dL Hct 29.9 L (34.0-46.0) % PT 12.1 H (9.0-12.0) sec INR 1.2 H (<1.2) APTT 40.3 H (22.0-30.0) sec Chloride 115 H (98-107) mmol/L Carbon Dioxide 20 L (22-30) mmol/L BUN 21 H (7-17) mg/dL Creatinine 1.42 H (0.52-1.04) mg/dL Total Protein 4.8 L (6.3-8.2) g/dL Albumin 2.1 L (3.5-5.0) g/dL Microbiology - Last 24 Hours (Table) 11/18/19 04:12 Blood Culture - Preliminary Blood No Growth after 72 hours
[2019-11-21] MEDS ORDERED: HEPARIN SODIUM,PORCINE 5,000 UNIT/ML 1 ML VIAL IV PRN (13:33)
--- NOTE | 2019-11-21 15:29 | PN ---
PROGRESS NOTE DATE OF SERVICE: 11/21/2019 Patient is a 74-year-old pleasant white female admitted to the hospital with acute GI bleed and severe epigastric pain. She had an EGD done 2 days ago that showed severe ischemic gastritis involving the fundus and cardia of the stomach. Patient has been doing extremely well. She was on clear liquid diet for the last 2 days. She denies any abdominal pain. She was transferred to the floor this morning. No nausea, vomiting. No further episodes of bleeding. PHYSICAL EXAMINATION: She appears comfortable, in no apparent distress. VITAL SIGNS: Stable. Blood pressure is 158/69, pulse is 77, temperature 97.7. HEENT: Examination unremarkable, conjunctivae are pink, sclerae nonicteric, oral cavity no lesions. NECK: No JVD or lymph node enlargement. CHEST: Clear to auscultation. HEART: Regular rate and rhythm. ABDOMEN: Soft, it was nontender, nondistended. Bowel sounds are positive. No organomegaly. EXTREMITIES: No pedal edema. SKIN: No rashes. NEURO: She is alert and oriented x3. No focal deficits. LABS: From today WBC 5.2, hemoglobin 9.7, platelets normal, PT, INR 1.2. BUN 21, creatinine 1.42. IMPRESSION: 1. Acute upper gastrointestinal bleed, status post EGD 2 days ago that showed ischemic appearing gastritis in the fundus and body proximal body of the stomach, status post biopsies which are still pending at the time of this dictation. The patient is clinically doing well. Abdominal pain has resolved. No further episodes of bleeding. Tolerating full liquid diet. 2. History of aortic valve replacement on Coumadin, currently on hold. Presently on IV heparin and Cardiology following the patient closely. 3. History of hypertension and hypercholesteremia. RECOMMENDATIONS: 1. Continue on a full liquid diet. 2. Monitor CBC daily. 3. Appreciate surgical input. 4. Continue with IV heparin for now. 5. Will follow with you closely. Thank you for this consultation. MMODL / IJN: [id number] /
[2019-11-21] MEDS: HEPARIN SOD,PORK IN 0.45% NACL 25,000 UNIT in 0.45% NACL 1 250ML.BAG IV SCH (15:44)
[2019-11-21] MEDS: WARFARIN 5 MG TAB PO SCH (15:45)
--- NOTE | 2019-11-21 17:00 | P.PN ---
Subjective Progress Note Date: 11/21/19 Alix Odonnell, is a 74-year-old female who was at her home sitting on the toilet when she felt very weak and dizzy, she was unable to stand up, she managed to call EMS who came to her home and helped her up her toilet seat she stated that they told her that there was blood in the toilet, patient was brought in to [facility] emergency room she was evaluated by Dr. Carlos hemoglobin was 12 Stool Hemoccult was positive BUN and creatinine was elevated at 39 and 1.6 patient has a known history of mechanical valve she is maintained on Coumadin, her INR on presentation was low at 1.3. Computed tomography scan of abdomen and pelvis without contrast was done in the emergency room and r evealed evidence of sigmoid colon inflammatory changes suggestive of colitis or diverticulitis she was started on IV antibiotics Levaquin and Flagyl in the emergency room. Patient was admitted to intensive care unit, cardiology consultation gastroenterology consultation and critical care consultations were requested. Patient was seen and examined in ICU she is alert and oriented 3 in no apparent distress she is complaining of generalized weakness otherwise she denies any complaints there is no fever or chills no headache or dizziness no chest pain no shortness of breath no cough no nausea or vomiting no abdominal pain no diarrhea no burning with urination no frequency or urgency and no hematuria. Her past medical history is significant for chronic systolic congestive heart failure, chronic kidney disease stage III, history of atrial fibrillation, history of stroke with residual left sided weakness, history of aortic mechanical valve replacement, maintained on Coumadin, remote history of abdominal aortic dissection and repair. On 11/19/2019 patient was seen and examined in the ICU, she is alert and oriented 3 in no apparent distress, there is no fever or chills no headache or dizziness no chest pain no shortness of breath no cough no nausea or vomiting no abdominal pain no diarrhea no burning with urination no frequency or urgency and no hematuria, patient underwent an EGD with Dr. Webb, results reviewed, input from Gen. surgery reviewed, at this time no surgical intervention scheduled, will start patient on full therapeutic dose of Lovenox until further decision in regard to any intervention is taken, if no intervention is required will start patient back on her Coumadin. On 11/20/2019 patient was seen and examined in the intensive care unit, she is alert and oriented 3 in no apparent distress there is no fever or chills no headache or dizziness no chest pain no shortness of breath no cough no nausea or vomiting no abdominal pain no diarrhea no burning was urination no frequency or urgency and no hematuria she is maintained on IV heparin drip. On 11/21/2019 patient was seen and examined on the medical floor she is alert and oriented 3 in no apparent distress there is no fever or chills no headache or dizziness no chest pain no shortness of breath no cough no nausea or vomiting no abdominal pain no diarrhea no blood in the stools no burning was urination no frequency or urgency and no hematuria, patient was evaluated by gastroenterology and cardiology, no intervention recommended at this time, Coumadin was restarted, she is still maintained on IV heparin until Coumadin is therapeutic, PT and OT were consulted for gait disturbance Objective - Vital Signs Vital signs: Vital Signs Temp 97.8 F 11/21/19 15:46 Pulse 69 11/21/19 15:46 Resp 16 11/21/19 15:47 BP 146/66 11/21/19 15:46 Pulse Ox 95 11/21/19 15:46 Intake & Output 11/20/19 11/21/19 11/21/19 18:59 06:59 18:59 Intake Total 1148.919 300 836.322 Output Total 865 930 Balance 283.919 -630 836.322 Weight 90 kg Intake: IV 680 300 100 Sodium Chloride 0.9% 1, 380 300 000 ml @ 100 mls/hr IV . Q10H [place] Rx#:[id number] metroNIDAZOLE-NS PMX 500 300 100 mg In Saline 1 100ml.bag @ 100 mls/hr IVPB Q8HR [place] Rx#:[id number] Intake, IV Titration 68.919 136.322 Amount Heparin Sod,Pork in 0.45% 68.919 136.322 NaCl 25,000 unit In 0.45 % NaCl 1 250ml.bag @ 11.5 UNITS/KG/HR 9.971 mls/hr IV .Q24H [place] Rx#: [id number] Oral 400 600 Output: Urine 865 930 Other: Voiding Method Indwelling Catheter Indwelling Catheter Toilet - Exam In general patient is alert and oriented 3 in no apparent distress HEENT head normocephalic and atraumatic Neck is supple no JVD no goiter no lymphadenopathy Chest exam reveals a few scattered rhonchi no wheezing Cardiac exam reveals regular heart sounds S1 and S2, with accentuated S2 and 3/6 systolic murmur in the left sternal border Abdomen is soft nontender no organomegaly with normal bowel sounds Extremity exam reveals no edema no cyanosis or clubbing Neurological examination reveals no acute gross deficit, chronic mild left sided weakness as compared to the right - Labs CBC & Chem 7: 11/21/19 05:00 11/21/19 05:00 Labs: Abnormal Lab Results - Last 24 Hours (Table) 11/21/19 11/21/19 11/21/19 Range/Units 05:00 05:00 05:00 RBC 3.08 L (3.80-5.40) m/uL Hgb 9.7 L (11.4-16.0) gm/dL Hct 29.9 L (34.0-46.0) % PT 12.1 H (9.0-12.0) sec INR 1.2 H (<1.2) APTT 40.3 H (22.0-30.0) sec Chloride 115 H (98-107) mmol/L Carbon Dioxide 20 L (22-30) mmol/L BUN 21 H (7-17) mg/dL Creatinine 1.42 H (0.52-1.04) mg/dL Total Protein 4.8 L (6.3-8.2) g/dL Albumin 2.1 L (3.5-5.0) g/dL 11/21/19 Range/Units 13:05 RBC (3.80-5.40) m/uL Hgb (11.4-16.0) gm/dL Hct (34.0-46.0) % PT (9.0-12.0) sec INR (<1.2) APTT 53.0 H (22.0-30.0) sec Chloride (98-107) mmol/L Carbon Dioxide (22-30) mmol/L BUN (7-17) mg/dL Creatinine (0.52-1.04) mg/dL Total Protein (6.3-8.2) g/dL Albumin (3.5-5.0) g/dL Microbiology - Last 24 Hours (Table) 05/23/20 04:12 Blood Culture - Preliminary Blood No Growth after 72 hours Assessment and Plan Plan: 1. Generalized weakness, likely related to dehydration 2. Rectal bleeding 3. Underlying history of congestive heart failure with cardiomyopathy 4. Underlying history of mechanical aortic valve replacement maintained on Coumadin 5. Underlying history of atrial fibrillation 6. Remote history of stroke 7. Evidence of colitis versus diverticulitis on computed tomography scan of the abdomen in the sigmoid colon patient was started on IV antibiotic Levaquin and Flagyl, will continue at this time. 8. Underlying history of chronic kidney disease stage III Will monitor CBC closely Patient is admitted to intensive care unit pulmonary critical care consultation requested in the emergency room, cardiology and gastroenterology consultation requested. I reviewed and reordered home medications. Cardiology and gastroenterology to decide in regard to anticoagulation and aspirin use Prognosis is guarded due to severity of illness, and the presence of gastrointestinal bleeding in the face of need to use anticoagulation.
[2019-11-22 06:32] LABS: Basophils # (A) 0.1 k/uL (0-0.2); Basophils % (A) 1 %; Eosinophils # (A) 0.5 k/uL (0-0.7); Eosinophils % (A) 9 %; HCT 31.7 % (34.0-46.0); HGB 9.9 gm/dL (11.4-16.0); Hypochromasia Slight; Lymphocytes # (A) 0.8 k/uL (1.0-4.8); Lymphocytes % (A) 16 %; MCH 30.1 pg (25.0-35.0); MCHC 31.3 g/dL (31.0-37.0); MCV 96.1 fL (80.0-100.0); Mean Platelet Volume 8.4; Monocytes # (A) 0.4 k/uL (0-1.0); Monocytes % (A) 7 %; Neutrophils # (A) 3.5 k/uL (1.3-7.7); Neutrophils % (A) 65 %; Platelet Count 175 k/uL (150-450); RDW 14.6 % (11.5-15.5); WBC 5.3 k/uL (3.8-10.6)
[2019-11-22 06:46] LABS: INR 1.3 (<1.2); Partial Thromboplastin Time 48.8 sec (22.0-30.0); Prothrombin Time 12.8 sec (9.0-12.0)
[2019-11-22 07:59] LABS: Albumin 2.3 g/dL (3.5-5.0); Calcium 10.1 mg/dL (8.4-10.2); Potassium 4.2 mmol/L (3.5-5.1); Total Bilirubin 0.4 mg/dL (0.2-1.3); Total Protein 5.2 g/dL (6.3-8.2)
[2019-11-22] MEDS: metroNIDAZOLE-NS PMX 500 MG in SALINE 1 100ML.BAG IVPB SCH (08:03)
[2019-11-22] MEDS: SODIUM CHLORIDE 0.9% 1,000 ML IV SCH ×2 (08:04→21:53)
[2019-11-22] MEDS: PANTOPRAZOLE 40 MG/10 ML VIAL IVP SCH ×2 (08:05→21:53)
[2019-11-22] MEDS: SPIRONOLACTONE 25 MG TAB PO SCH (08:05)
[2019-11-22] MEDS: AMIODARONE 100 MG TAB PO SCH (08:05)
--- NOTE | 2019-11-22 12:51 | P.PN ---
<Kati Reyna - Last Filed: 11/22/19 12:51> Subjective Progress Note Date: 11/22/19 CHIEF COMPLAINT: Ischemic gastritis HISTORY OF PRESENT ILLNESS: Patient examined at the bedside. Patient is tolerating diet without nausea or vomiting. She denies abdominal pain. PHYSICAL EXAM: VITAL SIGNS: Reviewed. GENERAL: Well-developed in no acute distress. HEENT: No sclera icterus. Extraocular movements grossly intact. Moist buccal mucosa. Head is atraumatic, normocephalic. ABDOMEN: Soft. Nondistended. Nontender. NEUROLOGIC: Alert and oriented. Cranial nerves II through XII grossly intact. ASSESSMENT: 1. Ischemic stomach PLAN: -Continue diet as tolerated -No surgical intervention intervention at this time Nurse practitioner note has been reviewed by physician. Signing provider agrees with the documented findings, assessment, and plan of care. Objective - Vital Signs Vital signs: Vital Signs Temp 97.9 F 11/22/19 07:55 Pulse 89 11/22/19 07:55 Resp 18 11/22/19 07:59 BP 149/75 11/22/19 07:55 Pulse Ox 96 11/22/19 07:55 Intake & Output 11/21/19 11/22/19 11/22/19 18:59 06:59 18:59 Intake Total 1016.322 800 200 Balance 1016.322 800 200 Intake: IV 100 800 Sodium Chloride 0.9% 1, 800 000 ml @ 100 mls/hr IV . Q10H [place] Rx#:[id number] metroNIDAZOLE-NS PMX 500 100 mg In Saline 1 100ml.bag @ 100 mls/hr IVPB Q8HR [place] Rx#:[id number] Intake, IV Titration 136.322 Amount Heparin Sod,Pork in 0.45% 136.322 NaCl 25,000 unit In 0.45 % NaCl 1 250ml.bag @ 11.5 UNITS/KG/HR 9.971 mls/hr IV .Q24H JN Rx#: [id number] Oral 780 200 Other: Voiding Method Toilet Toilet Toilet # Voids 1 2 - Labs CBC & Chem 7: 11/22/19 06:13 11/22/19 06:13 Labs: Abnormal Lab Results - Last 24 Hours (Table) 11/21/19 11/21/19 11/22/19 Range/Units 13:05 19:57 06:13 RBC 3.30 L (3.80-5.40) m/uL Hgb 9.9 L (11.4-16.0) gm/dL Hct 31.7 L (34.0-46.0) % Lymphocytes # 0.8 L (1.0-4.8) k/uL PT (9.0-12.0) sec INR (<1.2) APTT 53.0 H 41.0 H (22.0-30.0) sec Chloride (98-107) mmol/L Carbon Dioxide (22-30) mmol/L Creatinine (0.52-1.04) mg/dL Total Protein (6.3-8.2) g/dL Albumin (3.5-5.0) g/dL 11/22/19 11/22/19 Range/Units 06:13 06:13 RBC (3.80-5.40) m/uL Hgb (11.4-16.0) gm/dL Hct (34.0-46.0) % Lymphocytes # (1.0-4.8) k/uL PT 12.8 H (9.0-12.0) sec INR 1.3 H (<1.2) APTT 48.8 H (22.0-30.0) sec Chloride 115 H (98-107) mmol/L Carbon Dioxide 21 L (22-30) mmol/L Creatinine 1.13 H (0.52-1.04) mg/dL Total Protein 5.2 L (6.3-8.2) g/dL Albumin 2.3 L (3.5-5.0) g/dL Microbiology - Last 24 Hours (Table) 11/18/19 04:12 Blood Culture - Preliminary Blood No Growth after 96 hours <Ion Escobar - Last Filed: 11/22/19 16:31> Objective - Vital Signs Vital signs: Vital Signs Temp 97.6 F 11/22/19 16:09 Pulse 80 11/22/19 16:09 Resp 16 11/22/19 16:09 BP 176/80 11/22/19 16:09 Pulse Ox 95 11/22/19 16:09 Intake & Output 11/21/19 11/22/19 11/22/19 18:59 06:59 18:59 Intake Total 1016.427 650 9793.95 Balance 1016.510 097 5492.95 Intake: IV 100 800 900 Sodium Chloride 0.9% 1, 800 800 000 ml @ 100 mls/hr IV . Q10H [place] Rx#:[id number] metroNIDAZOLE-NS PMX 500 100 100 mg In Saline 1 100ml.bag @ 100 mls/hr IVPB Q8HR [place] Rx#:[id number] Intake, IV Titration 136.322 244.95 Amount Heparin Sod,Pork in 0.45% 244.95 NaCl 25,000 unit In 0.45 % NaCl 1 250ml.bag @ 11.5 UNITS/KG/HR 10.35 mls/hr IV .Q24H [place] Rx#: [id number] Heparin Sod,Pork in 0.45% 136.322 NaCl 25,000 unit In 0.45 % NaCl 1 250ml.bag @ 11.5 UNITS/KG/HR 9.971 mls/hr IV .Q24H [place] Rx#: [id number] Oral 780 800 Other: Voiding Method Toilet Toilet Toilet # Voids 1 2 - Labs CBC & Chem 7: 11/22/19 06:13 11/22/19 06:13 Labs: Abnormal Lab Results - Last 24 Hours (Table) 11/21/19 11/22/19 11/22/19 Range/Units 19:57 06:13 06:13 RBC 3.30 L (3.80-5.40) m/uL Hgb 9.9 L (11.4-16.0) gm/dL Hct 31.7 L (34.0-46.0) % Lymphocytes # 0.8 L (1.0-4.8) k/uL PT (9.0-12.0) sec INR (<1.2) APTT 41.0 H (22.0-30.0) sec Chloride 115 H (98-107) mmol/L Carbon Dioxide 21 L (22-30) mmol/L Creatinine 1.13 H (0.52-1.04) mg/dL Total Protein 5.2 L (6.3-8.2) g/dL Albumin 2.3 L (3.5-5.0) g/dL 11/22/19 Range/Units 06:13 RBC (3.80-5.40) m/uL Hgb (11.4-16.0) gm/dL Hct (34.0-46.0) % Lymphocytes # (1.0-4.8) k/uL PT 12.8 H (9.0-12.0) sec INR 1.3 H (<1.2) APTT 48.8 H (22.0-30.0) sec Chloride (98-107) mmol/L Carbon Dioxide (22-30) mmol/L Creatinine (0.52-1.04) mg/dL Total Protein (6.3-8.2) g/dL Albumin (3.5-5.0) g/dL Microbiology - Last 24 Hours (Table) 11/18/19 04:12 Blood Culture - Preliminary Blood No Growth after 96 hours Assessment and Plan Assessment: Patient's abdomen remains soft. We will advance her diet as tolerated.
--- NOTE | 2019-11-22 14:24 | P.PN ---
Subjective Progress Note Date: 11/22/19 Principal diagnosis: lower GI bleeding, diverticulitis/colitis on 11/22/2019 patient seen in follow-up on selective care unit. She is awake and alert, in no acute distress. She is resting comfortably in bed, noncompressive shortness of breath, no chest pain. no further episodes of GI bleeding, today's hemoglobin is 9.9. patient's heparin drip has been reinitiated, and Coumadin has been restarted history of mechanical valve. Today's INR is 1.3. no nausea vomiting, no abdominal pain, patient is tolerating oral diet. Objective - Vital Signs Vital signs: Vital Signs Temp 97.9 F 11/22/19 07:55 Pulse 89 11/22/19 07:55 Resp 18 11/22/19 07:59 BP 149/75 11/22/19 07:55 Pulse Ox 96 11/22/19 07:55 Intake & Output 11/21/19 11/22/19 11/22/19 18:59 06:59 18:59 Intake Total 1016.308 298 3798 Balance 1016.695 549 2672 Intake: IV 100 800 900 Sodium Chloride 0.9% 1, 800 800 000 ml @ 100 mls/hr IV . Q10H [place] Rx#:[id number] metroNIDAZOLE-NS PMX 500 100 100 mg In Saline 1 100ml.bag @ 100 mls/hr IVPB Q8HR [place] Rx#:[id number] Intake, IV Titration 136.322 Amount Heparin Sod,Pork in 0.45% 136.322 NaCl 25,000 unit In 0.45 % NaCl 1 250ml.bag @ 11.5 UNITS/KG/HR 9.971 mls/hr IV .Q24H [place] Rx#: [id number] Oral 780 800 Other: Voiding Method Toilet Toilet Toilet # Voids 1 2 - Exam GENERAL EXAM: Alert, pleasant, 74-year-old white female on room air, with a pulse ox of 96%, comfortable in no apparent distress. HEAD: Normocephalic/atraumatic. EYES: Normal reaction of pupils, equal size. Conjunctiva pink, sclera white. NOSE: Clear with pink turbinates. THROAT: No erythema or exudates. NECK: No masses, no JVD, no thyroid enlargement, no adenopathy. CHEST: No chest wall deformity. Symmetrical expansion. LUNGS: Equal air entry with no crackles, wheeze, rhonchi or dullness. CVS: Regular rate and rhythm, normal S1 and S2, no gallops, no murmurs, no rubs ABDOMEN: Soft, nontender. No hepatosplenomegaly, normal bowel sounds, no guarding or rigidity. EXTREMITIES: No clubbing, no edema, no cyanosis, 2+ pulses and upper and lower extremities. MUSCULOSKELETAL: Muscle strength and tone normal. SPINE: No scoliosis or deformity SKIN: No rashes CENTRAL NERVOUS SYSTEM: Alert and oriented -3. No focal deficits, tone is normal in all 4 extremities. PSYCHIATRIC: Alert and oriented -3. Appropriate affect. Intact judgment and insight. - Labs CBC & Chem 7: 11/22/19 06:13 11/22/19 06:13 Labs: Abnormal Lab Results - Last 24 Hours (Table) 11/21/19 11/22/19 11/22/19 Range/Units 19:57 06:13 06:13 RBC 3.30 L (3.80-5.40) m/uL Hgb 9.9 L (11.4-16.0) gm/dL Hct 31.7 L (34.0-46.0) % Lymphocytes # 0.8 L (1.0-4.8) k/uL PT (9.0-12.0) sec INR (<1.2) APTT 41.0 H (22.0-30.0) sec Chloride 115 H (98-107) mmol/L Carbon Dioxide 21 L (22-30) mmol/L Creatinine 1.13 H (0.52-1.04) mg/dL Total Protein 5.2 L (6.3-8.2) g/dL Albumin 2.3 L (3.5-5.0) g/dL 11/22/19 Range/Units 06:13 RBC (3.80-5.40) m/uL Hgb (11.4-16.0) gm/dL Hct (34.0-46.0) % Lymphocytes # (1.0-4.8) k/uL PT 12.8 H (9.0-12.0) sec INR 1.3 H (<1.2) APTT 48.8 H (22.0-30.0) sec Chloride (98-107) mmol/L Carbon Dioxide (22-30) mmol/L Creatinine (0.52-1.04) mg/dL Total Protein (6.3-8.2) g/dL Albumin (3.5-5.0) g/dL Microbiology - Last 24 Hours (Table) 11/18/19 04:12 Blood Culture - Preliminary Blood No Growth after 96 hours Assessment and Plan Plan: Assessment: #1. Acute lower GI bleeding secondary to ischemic gastritis, EGD showed severe ischemic-appearing gastritis involving the proximal body and anti-her fundus of the stomach, there was mucosal erythema, friability, congestion and superficial ulceration and bluish discoloration of the mucosa. Patient has had no further bleeding, and today on 11/21/2019 she has been restarted on Coumadin and heparin drip. no surgical intervention is planned at this time #2. history of mechanical aortic valve #3. History of CVA/TIA #4. Acute colitis/diverticulitis #5. Acute on chronic kidney disease, related to hypovolemia and hypotension/acute tubular necrosis, improving #6. Hypotension secondary to hypovolemia, not related to sepsis, improved with IV hydration Plan: Patient remains stable, she has had no further episodes of GI bleeding, hemoglobin is stable, patient has been restarted on her Coumadin, and heparin infusion for history of mechanical aortic valve. No specific complaints, abdominal pain, no nausea or vomiting, patient can be considered for discharge home today with Lovenox bridge ~INRs therapeutic. I performed a history & physical examination of the patient and discussed their management with my nurse practitioner, Cecilia Gonzalez. I reviewed the nurse pra ctitioner's note and agree with the documented findings and plan of care. Lung sounds are positive for clear breath sounds. The findings and the impression was discussed with the patient. I attest to the documentation by the nurse practitioner. Time with Patient: Less than 30
[2019-11-22] MEDS: metroNIDAZOLE 500 MG TAB PO SCH ×2 (15:24→23:27)
[2019-11-22] MEDS: HEPARIN SOD,PORK IN 0.45% NACL 25,000 UNIT in 0.45% NACL 1 250ML.BAG IV SCH (15:24)
[2019-11-22] MEDS: WARFARIN 5 MG TAB PO SCH (15:24)
--- NOTE | 2019-11-22 16:00 | P.PN ---
Subjective Progress Note Date: 11/22/19 This is a 74-year-old female patient with past medical history significant for valvular heart disease status post mechanical valve in the aortic position, dual-chamber pacemaker, history of paroxysmal atrial fibrillation admitted to the hospital with ischemic bowel disease. She was seen and examined today, reinitiated on her Coumadin yesterday. Her INR today is 1.3. Objective - Vital Signs Vital signs: Vital Signs Temp 97.9 F 11/22/19 07:55 Pulse 89 11/22/19 07:55 Resp 18 11/22/19 07:59 BP 149/75 11/22/19 07:55 Pulse Ox 96 11/22/19 07:55 Intake & Output 11/21/19 11/22/19 11/22/19 18:59 06:59 18:59 Intake Total 1016.673 754 9003.95 Balance 1016.566 873 8175.95 Intake: IV 100 800 900 Sodium Chloride 0.9% 1, 800 800 000 ml @ 100 mls/hr IV . Q10H [place] Rx#:[id number] metroNIDAZOLE-NS PMX 500 100 100 mg In Saline 1 100ml.bag @ 100 mls/hr IVPB Q8HR [place] Rx#:[id number] Intake, IV Titration 136.322 244.95 Amount Heparin Sod,Pork in 0.45% 244.95 NaCl 25,000 unit In 0.45 % NaCl 1 250ml.bag @ 11.5 UNITS/KG/HR 10.35 mls/hr IV .Q24H [place] Rx#: [id number] Heparin Sod,Pork in 0.45% 136.322 NaCl 25,000 unit In 0.45 % NaCl 1 250ml.bag @ 11.5 UNITS/KG/HR 9.971 mls/hr IV .Q24H [place] Rx#: [id number] Oral 780 800 Other: Voiding Method Toilet Toilet Toilet # Voids 1 2 - Exam GENERAL EXAM: Alert, pleasant, 74-year-old white female on room air, with a pulse ox of 96%, comfortable in no apparent distress. HEAD: Normocephalic/atraumatic. EYES: Normal reaction of pupils, equal size. Conjunctiva pink, sclera white. NOSE: Clear with pink turbinates. THROAT: No erythema or exudates. NECK: No masses, no JVD, no thyroid enlargement, no adenopathy. CHEST: No chest wall deformity. Symmetrical expansion. LUNGS: Equal air entry with no crackles, wheeze, rhonchi or dullness. CVS: Regular rate and rhythm, normal S1 and S2, no gallops, no murmurs, no rubs ABDOMEN: Soft, nontender. No hepatosplenomegaly, normal bowel sounds, no guarding or rigidity. EXTREMITIES: No clubbing, no edema, no cyanosis, 2+ pulses and upper and lower extremities. MUSCULOSKELETAL: Muscle strength and tone normal. SPINE: No scoliosis or deformity SKIN: No rashes CENTRAL NERVOUS SYSTEM: Alert and oriented -3. No focal deficits, tone is normal in all 4 extremities. PSYCHIATRIC: Alert and oriented -3. Appropriate affect. Intact judgment and insight. - Labs CBC & Chem 7: 11/22/19 06:13 11/22/19 06:13 Labs: Abnormal Lab Results - Last 24 Hours (Table) 11/21/19 11/22/19 11/22/19 Range/Units 19:57 06:13 06:13 RBC 3.30 L (3.80-5.40) m/uL Hgb 9.9 L (11.4-16.0) gm/dL Hct 31.7 L (34.0-46.0) % Lymphocytes # 0.8 L (1.0-4.8) k/uL PT (9.0-12.0) sec INR (<1.2) APTT 41.0 H (22.0-30.0) sec Chloride 115 H (98-107) mmol/L Carbon Dioxide 21 L (22-30) mmol/L Creatinine 1.13 H (0.52-1.04) mg/dL Total Protein 5.2 L (6.3-8.2) g/dL Albumin 2.3 L (3.5-5.0) g/dL 11/22/19 Range/Units 06:13 RBC (3.80-5.40) m/uL Hgb (11.4-16.0) gm/dL Hct (34.0-46.0) % Lymphocytes # (1.0-4.8) k/uL PT 12.8 H (9.0-12.0) sec INR 1.3 H (<1.2) APTT 48.8 H (22.0-30.0) sec Chloride (98-107) mmol/L Carbon Dioxide (22-30) mmol/L Creatinine (0.52-1.04) mg/dL Total Protein (6.3-8.2) g/dL Albumin (3.5-5.0) g/dL Microbiology - Last 24 Hours (Table) 11/18/19 04:12 Blood Culture - Preliminary Blood No Growth after 96 hours Assessment and Plan Plan: Assessment: #1. Acute lower GI bleeding secondary to ischemic gastritis, EGD showed severe ischemic-appearing gastritis involving the proximal body and anti-her fundus of the stomach, there was mucosal erythema, friability, congestion and superficial ulceration and bluish discoloration of the mucosa. Patient has had no further bleeding, and today on 11/21/2019 she has been restarted on Coumadin and heparin drip. no surgical intervention is planned at this time #2. history of mechanical aortic valve #3. History of CVA/TIA #4. Acute colitis/diverticulitis #5. Acute on chronic kidney disease, related to hypovolemia and hypotension/acute tubular necrosis, improving #6. Hypotension secondary to hypovolemia, not related to sepsis, improved with IV hydration Plan We will continue current dose of Coumadin to maintain a therapeutic INR in this patient with known mechanical aortic valve. DNP note has been reviewed, I agree with a documented findings and plan of care. Patient was seen and examined.
--- NOTE | 2019-11-22 16:32 | CDI ---
Documentation Clarification Form Date: 11/22/2019 04:01:01 PM From: Zoe Tello RN, CCDS Admit Date: 11/18/2019 04:36:00 AM Patient Name: Alix Odonnell Visit Number: [id number] Discharge Date: ATTENTION: The Clinical Documentation Specialists (CDI) and [facility] Coding Staff appreciate your assistance in clarifying documentation. Please respond to the clarification below the line at the bottom and electronically sign. The CDI & [facility] Coding staff will review the response and follow-up if needed. Please note: Queries are made part of the Legal Health Record. If you have any questions, please contact the author of this message via ITS. Dr. Meg Webb Acute upper gastrointestional bleed is documented your consult, subsequent progress notes. Please clarify any additional diagnosis this may indicate. History/Risk Factors: Atrial Fibrillation,. Valve replacement on Coumadin. chronic anemia Clinical indicators: 74 year old female admitted to hospital on 11/17 with abdominal pain associated with nausea, vomiting and black tarry stools. 11/17 Vital Signs: @ 03:4860/ 60 16 94.7 98 % RA 11/17 vital signs @03:56 84/63 60 16 98 % RA 11/18 EGD showed ischemic appearing gastritis involving the fundus and proximal body of the stomach. Biopsies were done and are pending. 11/17 HGB 12.8, HCT 41.2 11/18 HGB 11.2, HCT 35.5 11/19 HGB 10.0, HCT 31.2 11/21 HGB 9.9, HCT 31.7 Treatment: Monitor CBC daily Protonix 40 mg daily .9 Saline Iv Bolus x3 Flagyl 500 mg IV q 8 hrs 11/17-11/21 then 500 mg po q8 hrs In order to capture the severity of condition, please clarify the type of anemia and etiology if known:. Acute blood loss anemia Acute on chronic blood loss anemia Chronic blood loss anemia Anemia of chronic kidney disease Unable to determine Other, please specify (Last Form Revision: August 2019) Anemia is caused from acute blood loss from acute ischemic gastritis Meg COUGHLIN
[2019-11-22] MEDS: PRAVASTATIN SODIUM 20 MG TAB PO SCH (21:53)
--- NOTE | 2019-11-23 02:39 | PN ---
PROGRESS NOTE DATE OF DICTATION: 11/22/2019 Patient is a 74-year-old pleasant white female admitted to the hospital with abdominal pain and upper GI bleed. Had an upper endoscopy 3 days ago that showed evidence of ischemic appearing gastritis. Biopsies showed chronic active gastritis with reactive mucosal changes and eschar consistent with clinical impression of ischemic gastritis. The patient is doing much better. No abdominal pain. On a regular diet, tolerating well. No further episodes of nausea, vomiting, or rectal bleeding. PHYSICAL EXAMINATION: On physical examination, she appears comfortable. No apparent distress. Vital signs are stable. Blood pressure is 176/80, pulse rate 80, temperature 97.6. HEENT EXAMINATION: Unremarkable. Conjunctivae pink. Sclerae anicteric. Oral cavity, no lesions. NECK: No JVD or lymph node enlargement. CHEST: Clear to auscultation. HEART: Regular rate and rhythm. ABDOMEN: Soft, nontender, nondistended. Bowel sounds are positive. No organomegaly. EXTREMITIES: No pedal edema SKIN: No rashes. NEUROLOGIC: Alert and oriented x3. No focal deficits. LABS: WBC 5.3, hemoglobin 9.9, platelets normal. Basic metabolic panel is within normal limits. PT 1.3, PTT 48.8. IMPRESSION: 1. Acute ischemic gastritis, resolving. Etiology remains unclear. Questionable thromboembolic event. Patient on IV heparin. Surgery following the patient. 2. History of atrial fibrillation, presently on IV heparin and Coumadin has been started yesterday. 3. History of mechanical valve. 4. History of acute on chronic kidney disease, gradually improving. 5. History of cerebrovascular accident/transient ischemic attack. RECOMMENDATIONS: 1. Continue with Protonix 40 mg daily. 2. Discussed with the patient biopsy results. 3. Clinically as patient is doing well we can continue with conservative management. 4. I agree with starting her back on anticoagulation. 5. We will follow with you closely. Thank you for this consultation. MMODL / IJN: [id number] /
[2019-11-23] MEDS: SPIRONOLACTONE 25 MG TAB PO SCH (08:09)
[2019-11-23] MEDS: AMIODARONE 100 MG TAB PO SCH (08:10)
[2019-11-23] MEDS: metroNIDAZOLE 500 MG TAB PO SCH ×3 (08:10→23:35)
[2019-11-23] MEDS: PANTOPRAZOLE 40 MG/10 ML VIAL IVP SCH ×2 (08:10→21:39)
[2019-11-23] MEDS: SODIUM CHLORIDE 0.9% 1,000 ML IV SCH ×2 (08:12→16:03)
--- NOTE | 2019-11-23 10:09 | P.PN ---
Subjective Progress Note Date: 11/23/19 CHIEF COMPLAINT: Ischemic gastritis HISTORY OF PRESENT ILLNESS: Patient examined at the bedside. Patient is tolerating diet without nausea or vomiting. She denies abdominal pain. PHYSICAL EXAM: VITAL SIGNS: Reviewed. GENERAL: Well-developed in no acute distress. HEENT: No sclera icterus. Extraocular movements grossly intact. Moist buccal mucosa. Head is atraumatic, normocephalic. ABDOMEN: Soft. Nondistended. Nontender. NEUROLOGIC: Alert and oriented. Cranial nerves II through XII grossly intact. ASSESSMENT: 1. Ischemic stomach PLAN: -Continue diet as tolerated -No surgical intervention intervention at this time Nurse practitioner note has been reviewed by physician. Signing provider agrees with the documented findings, assessment, and plan of care. Objective - Vital Signs Vital signs: Vital Signs Temp 98.2 F 11/23/19 07:00 Pulse 79 11/23/19 07:00 Resp 20 11/23/19 07:00 BP 149/70 11/23/19 07:00 Pulse Ox 90 L 11/23/19 07:00 Intake & Output 11/22/19 11/23/19 11/23/19 18:59 06:59 18:59 Intake Total 2184.95 300 Balance 2184.95 300 Intake: IV 900 Sodium Chloride 0.9% 1, 800 000 ml @ 100 mls/hr IV . Q10H [place] Rx#:[id number] metroNIDAZOLE-NS PMX 500 100 mg In Saline 1 100ml.bag @ 100 mls/hr IVPB Q8HR [place] Rx#:[id number] Intake, IV Titration 244.95 Amount Heparin Sod,Pork in 0.45% 244.95 NaCl 25,000 unit In 0.45 % NaCl 1 250ml.bag @ 11.5 UNITS/KG/HR 10.35 mls/hr IV .Q24H [place] Rx#: [id number] Oral 1040 300 Other: Voiding Method Toilet Toilet Toilet # Voids 2 1 - Labs CBC & Chem 7: 11/22/19 06:13 11/22/19 06:13 Labs: Microbiology - Last 24 Hours (Table) 11/18/19 04:12 Blood Culture - Preliminary Blood No Growth after 120 hours
[2019-11-23 11:03] LABS: Basophils # (A) 0.1 k/uL (0-0.2); Basophils % (A) 1 %; Eosinophils # (A) 0.4 k/uL (0-0.7); Eosinophils % (A) 7 %; HCT 33.8 % (34.0-46.0); Hypochromasia Slight; Lymphocytes # (A) 0.8 k/uL (1.0-4.8); Lymphocytes % (A) 12 %; MCH 31.3 pg (25.0-35.0); MCHC 32.6 g/dL (31.0-37.0); MCV 96.2 fL (80.0-100.0); Mean Platelet Volume 9.6; Monocytes # (A) 0.4 k/uL (0-1.0); Monocytes % (A) 6 %; Neutrophils # (A) 4.7 k/uL (1.3-7.7); Neutrophils % (A) 72 %; Platelet Count 211 k/uL (150-450); RBC 3.51 m/uL (3.80-5.40); RDW 14.9 % (11.5-15.5); WBC 6.5 k/uL (3.8-10.6)
[2019-11-23 11:38] LABS: INR 1.7 (<1.2); Partial Thromboplastin Time 41.4 sec (22.0-30.0); Prothrombin Time 16.3 sec (9.0-12.0)
[2019-11-23 11:56] LABS: Albumin 2.5 g/dL (3.5-5.0); Calcium 10.6 mg/dL (8.4-10.2); Potassium 4.1 mmol/L (3.5-5.1); Total Bilirubin 0.3 mg/dL (0.2-1.3); Total Protein 5.5 g/dL (6.3-8.2)
--- NOTE | 2019-11-23 13:21 | P.PN ---
Subjective Patient is seen and examined sitting up in bed in no acute distress. She denies chest pain, shortness of breath, dizziness or palpitations. She is complaining of feeling bloated however no abdominal pain. Currently maintained on heparin infusion along with oral Coumadin for bridging. Blood pressure 149/70 heart rate 79 afebrile maintaining oxygen saturation on room air. Laboratory data reviewed, WBC 6.5, hemoglobin 11, platelets 211, INR 1.7, sodium 138, potassium 4.1, creatinine 1.13. GENERAL: Well-appearing, well-nourished and in no acute distress. NECK: Supple without JVD or thyromegaly. LUNGS: Breath sounds clear to auscultation bilaterally. Respiration equal and unlabored. No wheezes, rales or rhonchi. HEART: Regular rate and rhythm with mechanical click at the base, no rubs or gallops. S1 and S2 heard. EXTREMITIES: Normal range of motion, no edema. No clubbing or cyanosis. Peripheral pulses intact. ASSESSMENT Acute lower GI bleed secondary to ischemic gastritis Valvular heart disease status post mechanical aortic valve replacement Paroxysmal atrial fibrillation Permanent pacemaker implantation Left bundle branch block PLAN Continue heparin infusion and Coumadin dosing to achieve therapeutic INR of 2.5- 3.5. Repeat PT/INR in the morning. Nurse Practitioner note has been reviewed, I agree with a documented findings and plan of care. Patient was seen and examined. Objective - Vital Signs Vital signs: Vital Signs Temp 98.2 F 11/23/19 07:00 Pulse 79 11/23/19 07:00 Resp 20 11/23/19 07:00 BP 149/70 11/23/19 07:00 Pulse Ox 90 L 11/23/19 07:00 Intake & Output 11/22/19 11/23/19 11/23/19 18:59 06:59 18:59 Intake Total 2184.95 300 Balance 2184.95 300 Intake: IV 900 Sodium Chloride 0.9% 1, 800 000 ml @ 100 mls/hr IV . Q10H [place] Rx#:[id number] metroNIDAZOLE-NS PMX 500 100 mg In Saline 1 100ml.bag @ 100 mls/hr IVPB Q8HR [place] Rx#:[id number] Intake, IV Titration 244.95 Amount Heparin Sod,Pork in 0.45% 244.95 NaCl 25,000 unit In 0.45 % NaCl 1 250ml.bag @ 11.5 UNITS/KG/HR 10.35 mls/hr IV .Q24H [facility] Rx#: [id number] Oral 1040 300 Other: Voiding Method Toilet Toilet Toilet # Voids 2 1 - Labs CBC & Chem 7: 11/23/19 10:23 11/23/19 10:23 Labs: Microbiology - Last 24 Hours (Table) 11/18/19 04:12 Blood Culture - Preliminary Blood No Growth after 120 hours
[2019-11-23] MEDS: HEPARIN SOD,PORK IN 0.45% NACL 25,000 UNIT in 0.45% NACL 1 250ML.BAG IV SCH (13:38)
--- NOTE | 2019-11-23 15:16 | PN ---
PROGRESS NOTE PULMONARY/CRITICAL CARE PROGRESS NOTE: DATE OF SERVICE: 11/23/2019 This is a 74-year-old female who is resting comfortably up on the general medical floor. She is awake and alert. No acute distress. Not requiring any supplemental oxygen. She is currently still on IV heparin. She is waiting for her PT/INR to become therapeutic. She denies any further episodes of GI bleeding. She does have a history of a mechanical aortic valve. Currently her INR is 1.7. PHYSICAL EXAMINATION: VITAL SIGNS: Current vital signs are reviewed. Temperature 98.2, heart rate 79, respiratory rate 20, blood pressure 149/70, mean 96, room-air saturation 90% to 92%. GENERAL APPEARANCE: Appears in no acute distress. HEENT: Examination is grossly unremarkable. NECK: Supple. Full range of motion. No adenopathy. Neck veins are flat. CARDIOVASCULAR: Examination reveals regular rhythm and rate. She has a heart rate of about 80 beats per minute. S1, S2 normal. She has a loud click and a soft early systolic murmur noted. LUNGS: Lungs reveal mostly clear breath sounds. No wheezes, rhonchi or crackles. ABDOMEN: Soft. Bowel sounds are heard. EXTREMITIES: Intact. No cyanosis, clubbing or edema. SKIN: Without rash. NEUROLOGIC: Neurologic examination is brief but nonfocal. She does have a tremor, particularly of her upper extremities and head and neck area. LABS: Reviewed. White count 6.5, hemoglobin 11, hematocrit 33.8, platelet count normal. PT/INR were 16.3 and 1.7. That compares to 12.8 and 1.3 yesterday. Sodium and potassium normal. Chloride 113. CO2 21. Anion gap is 4. BUN and creatinine were 13 and 1.13. The rest of the labs look okay. Microbiology is thus far negative. No recent chest x-ray to report. Medications are reviewed. ASSESSMENT: 1. Acute lower gastrointestinal bleed secondary to ischemic gastritis, without any further bleeding at this time. 2. History of mechanical aortic valve, currently on Coumadin therapy, not yet therapeutic. 3. History of cerebrovascular accident. 4. History of acute colitis and diverticulitis. 5. History of acute on chronic kidney disease secondary to acute tubular necrosis, improved. 6. Hypotension secondary to hypokalemia and dehydration. PLAN: The patient is doing well. Not requiring any supplemental oxygen. Coumadin was restarted. Her most recent INR is 1.7. Will continue to follow. Prognosis is guarded. The patient denies chest pain or chest discomfort. The patient denies any shortness of breath. MMODL / IJN: [id number] / MTDD
--- NOTE | 2019-11-23 15:33 | CDI ---
Documentation Clarification Form Date: 11/23/2019 03:11:53 PM From: Zoe Tello RN, CCDS Admit Date: 11/18/2019 04:36:00 AM Patient Name: Alix Odonnell Visit Number: [id number] Discharge Date: ATTENTION: The Clinical Documentation Specialists (CDI) and [facility] Coding Staff appreciate your assistance in clarifying documentation. Please respond to the clarification below the line at the bottom and electronically sign. The CDI & [facility] Coding staff will review the response and follow-up if needed. Please note: Queries are made part of the Legal Health Record. If you have any questions, please contact the author of this message via ITS. Dr. Pauly Sosa The patients principal diagnosis has not been clearly identified and requires clarification. H/P and subsequent progress notes has colitis versus diverticulitis. 11/18 GI () Acute upper gastroentestional bleed, status post EGD that showed ischemic gastritis. He/She presented with the following generalized weakness and fatigue. History/Risk factors: Atrial Fibrillation, Valve replacement on Coumadin. chronic anemia Clinical Indicators: 74 year old female admitted to hospital on 11/17 with abdominal pain associated with nausea, vomiting and black tarry stools. Lab findings: 11/17 HGB 12.8, HCT 41.2 11/17 CXR: pleural diaphragmatic scarring left lung base unchanged 11/17 CT abdomen: Mild free fluid in pelvis unchanged. Inflammatory changes of the sigmoid colon consistent with colitis or diverticulitis. 11/20 Pathology report: Gastric body biopsies: full thickness chronic active gastritis with reactive muscosal changes and eschar consistent with the clinical impression of ischemic gastritis, 11/17 Vital Signs: @ 03:4860/27 60 16 94.7 98 % RA 11/17 vital signs @03:56 84/63 60 16 98 % RA Treatment: Monitor CBC daily Protonix 40 mg daily .9 Saline Iv Bolus x3 Flagyl 500 mg IV q 8 hrs 11/17-11/21 then 500 mg po q8 hrs In your professional opinion, can you please clarify which diagnosis, after study, accounted for the patients presenting symptoms and was the reason chiefly responsible for the admission? Acute ischemic gastritis Acute diverticulitis Colitis Other specify Unable to determine (Last Revision: September 2017) Acute ischemic gastritis MTDD
[2019-11-23] MEDS: WARFARIN 5 MG TAB PO SCH (16:03)
[2019-11-23] MEDS: PRAVASTATIN SODIUM 20 MG TAB PO SCH (21:40)
--- NOTE | 2019-11-23 22:25 | PN ---
PROGRESS NOTE DATE OF DICTATION: 11/23/2019 The patient is a 74-year-old pleasant white female admitted to the hospital with acute upper GI bleed. She had upper endoscopy done which showed severe ischemic gastritis. The patient has since done extremely well. Her abdominal pain has completely resolved. No further bleeding. Tolerating a regular diet well. Denies any fever, chills, night sweats. She was started back on Coumadin yesterday. PHYSICAL EXAMINATION: Appears comfortable. No apparent distress. VITAL SIGNS: Stable. Blood pressure is 153/84, pulse rate 96, temperature 99. HEENT examination unremarkable. Conjunctivae pink. Sclerae anicteric. Oral cavity no lesions. NECK: No JVD or lymph node enlargement. CHEST: Clear to auscultation. HEART: Regular rate and rhythm. ABDOMEN: Soft. Non-distended, non-tender. Bowel sounds are positive. No organomegaly. EXTREMITIES: No pedal edema. SKIN: No rashes. NEUROLOGIC: Alert and oriented x3. No focal deficits. LABS: WBC 6.4, hemoglobin 11, platelets normal. INR 1.7, PTT 66.5. IMPRESSION: 1. Acute ischemic gastritis, resolving. Etiology remains unclear. Possible thromboembolic event. Patient has recovered well. 2. History of valve replacement and atrial fibrillation. She is on IV heparin and Coumadin has been started yesterday. No further episodes of bleeding. RECOMMENDATIONS: 1. Continue with anticoagulation. 2. Monitor CBC daily. 3. Continue Protonix 40 mg daily. 4. Advance diet as tolerated. Thank you for this consultation. We will sign off at this time. Please call us if needed. MMODL / IJN: [id number] /
[2019-11-24] MEDS: SODIUM CHLORIDE 0.9% 1,000 ML IV SCH ×3 (05:43→21:11)
[2019-11-24] MEDS: AMIODARONE 100 MG TAB PO SCH (08:06)
[2019-11-24] MEDS: PANTOPRAZOLE 40 MG/10 ML VIAL IVP SCH ×2 (08:06→21:11)
[2019-11-24] MEDS: metroNIDAZOLE 500 MG TAB PO SCH ×3 (08:06→23:41)
[2019-11-24] MEDS: SPIRONOLACTONE 25 MG TAB PO SCH (08:06)
[2019-11-24 08:55] LABS: INR 2.1 (<1.2); Prothrombin Time 20.8 sec (9.0-12.0)
[2019-11-24] MEDS ORDERED: FUROSEMIDE 10 MG/ML 4 ML VIAL IV STA (11:04)
[2019-11-24] MEDS: HEPARIN SOD,PORK IN 0.45% NACL 25,000 UNIT in 0.45% NACL 1 250ML.BAG IV SCH (11:06)
--- NOTE | 2019-11-24 13:39 | XR ---
EXAMINATION TYPE: XR chest 2V DATE OF EXAM: 11/24/2019 COMPARISON: 11/19/2019 TECHNIQUE: PA and lateral views submitted. HISTORY: Shortness of breath FINDINGS: Heart is enlarged and is bilateral consolidation and small effusion. Postoperative change and cardiac device noted. Diffuse interstitial pattern. No pneumothorax. Prominence of the hilum bilaterally. IMPRESSION: 1. Interval development of bilateral infiltrate and pleural effusion correlate for CHF. 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 2. Pulmonary arteries appear prominent in size although the patient is rotated. Pulmonary arterial hy pertension in the differential diagnosis.
--- NOTE | 2019-11-24 14:49 | P.PN ---
Subjective Progress Note Date: 11/24/19 Principal diagnosis: Lower GI bleeding, diverticulitis/colitis The patient is seen today 11/24/2019 in follow-up on the regular medical floor. She is awake and alert in no acute distress. Currently sitting up in a chair at the bedside. Maintaining O2 saturation in the mid 90s on room air. She's been afebrile. Hemodynamically stable. Blood cultures reveal no growth. INR 2.1. She remains on Protonix 40 mg IVP twice a day. Chest x-ray revealed interval development of bilateral infiltrates and pleural effusions suggestive of congestive heart failure. She did receive additional IV Lasix today. Objective - Vital Signs Vital signs: Vital Signs Temp 98.9 F 11/24/19 07:00 Pulse 89 11/24/19 07:00 Resp 18 11/24/19 07:00 BP 148/85 11/24/19 07:00 Pulse Ox 94 L 11/24/19 07:00 Intake & Output 11/23/19 11/24/19 11/24/19 18:59 06:59 18:59 Intake Total 231.795 85.455 149.385 Balance 231.795 85.455 149.385 Intake: Intake, IV Titration 231.795 85.455 149.385 Amount Heparin Sod,Pork in 0.45% 231.795 85.455 149.385 NaCl 25,000 unit In 0.45 % NaCl 1 250ml.bag @ 11.5 UNITS/KG/HR 10.35 mls/hr IV .Q24H [facility] Rx#: [id number] Other: Voiding Method Toilet Toilet # Voids 1 1 1 - Exam GENERAL EXAM: Alert, pleasant 74-year-old female patient, on room air, comfortable in no apparent distress. HEAD: Normocephalic. EYES: Normal reaction of pupils, equal size. NOSE: Clear with pink turbinates. THROAT: No erythema or exudates. NECK: No masses, no JVD. CHEST: No chest wall deformity. LUNGS: Equal air entry with crackles in the bilateral posterior bases. CVS: S1 and S2 normal with no audible murmur, regular rhythm. ABDOMEN: No hepatosplenomegaly, normal bowel sounds, no guarding or rigidity. SPINE: No scoliosis or deformity SKIN: No rashes CENTRAL NERVOUS SYSTEM: No focal deficits, tone is normal in all 4 extremities. EXTREMITIES: There is no peripheral edema. No clubbing, no cyanosis. Peripheral pulses are intact. - Labs CBC & Chem 7: 11/23/19 10:23 11/23/19 10:23 Labs: Abnormal Lab Results - Last 24 Hours (Table) 11/23/19 11/24/19 11/24/19 Range/Units 19:33 02:56 07:33 PT 20.8 H (9.0-12.0) sec INR 2.1 H (<1.2) APTT 66.5 H 57.9 H (22.0-30.0) sec Microbiology - Last 24 Hours (Table) 11/18/19 04:12 Blood Culture - Final Blood No Growth after 144 hours Assessment and Plan Assessment: #1. Acute lower GI bleeding secondary to ischemic gastritis, EGD showed severe ischemic-appearing gastritis involving the proximal body and anti-her fundus of the stomach, there was mucosal erythema, friability, congestion and superficial ulceration and bluish discoloration of the mucosa. Patient has had no further bleeding, she has been restarted on Coumadin and her INR is 2.1 #2. History of mechanical aortic valve #3. History of CVA/TIA #4. Acute colitis/diverticulitis #5. Acute on chronic kidney disease, related to hypovolemia and hypotension/acute tubular necrosis, improving #6. Acute exacerbation of diastolic congestive heart failure, received IV Lasix today Plan: The patient was seen and evaluated by Dr. Paulson Currently stable from the pulmonary standpoint Chest x-ray reviewed, received IV Lasix We will continue to follow I, the cosigning physician, performed a history & physical examination of the patient. Lungs sounds with crackles in the bilateral posterior bases. Maintaining good O2 saturations in the 90s on room air. I discussed the assessment and plan of care with my nurse practitioner, Jenn Jiang. I attest to the above note as dictated by her.
--- NOTE | 2019-11-24 15:05 | P.PN ---
Subjective Patient is seen and examined sitting up in bed in no acute distress. She is seen and examined sitting up in the chair. Clinically she looks comfortable however she states she had a horrible night sleep and has been consistently short of breath. Repeat chest x-ray was ordered revealing interval development of bilateral infiltrate and pleural effusions, pulmonary arteries prominent and pulmonary artery hypertension considered. Blood pressure 114/63 heart rate 95 afebrile maintaining oxygen saturation on room air. Laboratory data reviewed, I NR today is 2.1. GENERAL: Well-appearing, well-nourished and in no acute distress. NECK: Supple without JVD or thyromegaly. LUNGS: Breath sounds clear to auscultation bilaterally. Respiration equal and unlabored. No wheezes, rales or rhonchi. HEART: Regular rate and rhythm with mechanical click at the base, no rubs or gallops. S1 and S2 heard. EXTREMITIES: Normal range of motion, no edema. No clubbing or cyanosis. Peripheral pulses intact. ASSESSMENT Acute lower GI bleed secondary to ischemic gastritis Acute on chronic diastolic heart failure secondary to fluid administration due to dehydration Valvular heart disease status post mechanical aortic valve replacement Paroxysmal atrial fibrillation Permanent pacemaker implantation Left bundle branch block PLAN Discontinue heparin infusion and continue oral Coumadin. Repeat PT/INR and BMP in the morning. Give 1 dose of Lasix IV 40 mg now. Resume home dose of 80 mg in the morning to start tomorrow. Nurse Practitioner note has been reviewed, I agree with a documented findings and plan of care. Patient was seen and examined. Objective - Vital Signs Vital signs: Vital Signs Temp 98.3 F 11/24/19 14:41 Pulse 95 11/24/19 14:41 Resp 18 11/24/19 14:41 BP 114/63 11/24/19 14:41 Pulse Ox 95 11/24/19 14:41 Intake & Output 11/23/19 11/24/19 11/24/19 18:59 06:59 18:59 Intake Total 231.795 85.455 149.385 Balance 231.795 85.455 149.385 Intake: Intake, IV Titration 231.795 85.455 149.385 Amount Heparin Sod,Pork in 0.45% 231.795 85.455 149.385 NaCl 25,000 unit In 0.45 % NaCl 1 250ml.bag @ 11.5 UNITS/KG/HR 10.35 mls/hr IV .Q24H [facility] Rx#: [id number] Other: Voiding Method Toilet Toilet # Voids 1 1 1 - Labs CBC & Chem 7: 11/23/19 10:23 11/23/19 10:23 Labs: Abnormal Lab Results - Last 24 Hours (Table) 11/23/19 11/24/19 11/24/19 Range/Units 19:33 02:56 07:33 PT 20.8 H (9.0-12.0) sec INR 2.1 H (<1.2) APTT 66.5 H 57.9 H (22.0-30.0) sec Microbiology - Last 24 Hours (Table) 11/18/19 04:12 Blood Culture - Final Blood No Growth after 144 hours
[2019-11-24] MEDS: WARFARIN 5 MG TAB PO SCH (15:57)
--- NOTE | 2019-11-24 16:08 | P.PN ---
Subjective Progress Note Date: 11/22/19 Alix Odonnell, is a 74-year-old female who was at her home sitting on the toilet when she felt very weak and dizzy, she was unable to stand up, she managed to call EMS who came to her home and helped her up her toilet seat she stated that they told her that there was blood in the toilet, patient was brought in to [facility] emergency room she was evaluated by Dr. Carlos hemoglobin was 12 Stool Hemoccult was positive BUN and creatinine was elevated at 39 and 1.6 patient has a known history of mechanical valve she is maintained on Coumadin, her INR on presentation was low at 1.3. Computed tomography scan of abdomen and pelvis without contrast was done in the emergency room and r evealed evidence of sigmoid colon inflammatory changes suggestive of colitis or diverticulitis she was started on IV antibiotics Levaquin and Flagyl in the emergency room. Patient was admitted to intensive care unit, cardiology consultation gastroenterology consultation and critical care consultations were requested. Patient was seen and examined in ICU she is alert and oriented 3 in no apparent distress she is complaining of generalized weakness otherwise she denies any complaints there is no fever or chills no headache or dizziness no chest pain no shortness of breath no cough no nausea or vomiting no abdominal pain no diarrhea no burning with urination no frequency or urgency and no hematuria. Her past medical history is significant for chronic systolic congestive heart failure, chronic kidney disease stage III, history of atrial fibrillation, history of stroke with residual left sided weakness, history of aortic mechanical valve replacement, maintained on Coumadin, remote history of abdominal aortic dissection and repair. On 11/19/2019 patient was seen and examined in the ICU, she is alert and oriented 3 in no apparent distress, there is no fever or chills no headache or dizziness no chest pain no shortness of breath no cough no nausea or vomiting no abdominal pain no diarrhea no burning with urination no frequency or urgency and no hematuria, patient underwent an EGD with Dr. Webb, results reviewed, input from Gen. surgery reviewed, at this time no surgical intervention scheduled, will start patient on full therapeutic dose of Lovenox until further decision in regard to any intervention is taken, if no intervention is required will start patient back on her Coumadin. On 11/20/2019 patient was seen and examined in the intensive care unit, she is alert and oriented 3 in no apparent distress there is no fever or chills no headache or dizziness no chest pain no shortness of breath no cough no nausea or vomiting no abdominal pain no diarrhea no burning was urination no frequency or urgency and no hematuria she is maintained on IV heparin drip. On 11/21/2019 patient was seen and examined on the medical floor she is alert and oriented 3 in no apparent distress there is no fever or chills no headache or dizziness no chest pain no shortness of breath no cough no nausea or vomiting no abdominal pain no diarrhea no blood in the stools no burning was urination no frequency or urgency and no hematuria, patient was evaluated by gastroenterology and cardiology, no intervention recommended at this time, Coumadin was restarted, she is still maintained on IV heparin until Coumadin is therapeutic, PT and OT were consulted for gait disturbance On 11/22/2019 patient was seen and examined on the medical floor she is alert and oriented 3, her abdominal pain is improving there is no fever or chills no headache or dizziness no chest pain no shortness of breath no cough, no nausea or vomiting no diarrhea no blood in the stools no burning was urination no frequency or urgency and no hematuria Objective - Vital Signs Vital signs: Vital Signs Temp 97.9 F 11/22/19 07:55 Pulse 89 11/22/19 07:55 Resp 18 11/22/19 07:59 BP 149/75 11/22/19 07:55 Pulse Ox 96 11/22/19 07:55 Intake & Output 11/21/19 11/22/19 11/22/19 18:59 06:59 18:59 Intake Total 1016.322 800 200 Balance 1016.322 800 200 Intake: IV 100 800 Sodium Chloride 0.9% 1, 800 000 ml @ 100 mls/hr IV . Q10H [facility] Rx#:[id number] metroNIDAZOLE-NS PMX 500 100 mg In Saline 1 100ml.bag @ 100 mls/hr IVPB Q8HR [facility] Rx#:[id number] Intake, IV Titration 136.322 Amount Heparin Sod,Pork in 0.45% 136.322 NaCl 25,000 unit In 0.45 % NaCl 1 250ml.bag @ 11.5 UNITS/KG/HR 9.971 mls/hr IV .Q24H [facility] Rx#: [id number] Oral 780 200 Other: Voiding Method Toilet Toilet Toilet # Voids 1 - Exam In general patient is alert and oriented 3 in no apparent distress HEENT head normocephalic and atraumatic Neck is supple no JVD no goiter no lymphadenopathy Chest exam reveals a few scattered rhonchi no wheezing Cardiac exam reveals regular heart sounds S1 and S2, with accentuated S2 and 3/6 systolic murmur in the left sternal border Abdomen is soft nontender no organomegaly with normal bowel sounds Extremity exam reveals no edema no cyanosis or clubbing Neurological examination reveals no acute gross deficit, chronic mild left sided weakness as compared to the right - Labs CBC & Chem 7: 11/23/19 10:23 11/23/19 10:23 Labs: Abnormal Lab Results - Last 24 Hours (Table) 11/21/19 11/21/19 11/22/19 Range/Units 13:05 19:57 06:13 RBC 3.30 L (3.80-5.40) m/uL Hgb 9.9 L (11.4-16.0) gm/dL Hct 31.7 L (34.0-46.0) % Lymphocytes # 0.8 L (1.0-4.8) k/uL PT (9.0-12.0) sec INR (<1.2) APTT 53.0 H 41.0 H (22.0-30.0) sec Chloride (98-107) mmol/L Carbon Dioxide (22-30) mmol/L Creatinine (0.52-1.04) mg/dL Total Protein (6.3-8.2) g/dL Albumin (3.5-5.0) g/dL 11/22/19 11/22/19 Range/Units 06:13 06:13 RBC (3.80-5.40) m/uL Hgb (11.4-16.0) gm/dL Hct (34.0-46.0) % Lymphocytes # (1.0-4.8) k/uL PT 12.8 H (9.0-12.0) sec INR 1.3 H (<1.2) APTT 48.8 H (22.0-30.0) sec Chloride 115 H (98-107) mmol/L Carbon Dioxide 21 L (22-30) mmol/L Creatinine 1.13 H (0.52-1.04) mg/dL Total Protein 5.2 L (6.3-8.2) g/dL Albumin 2.3 L (3.5-5.0) g/dL Microbiology - Last 24 Hours (Table) 11/18/19 04:12 Blood Culture - Preliminary Blood No Growth after 96 hours Assessment and Plan Plan: 1. Generalized weakness, likely related to dehydration 2. Rectal bleeding 3. Underlying history of congestive heart failure with cardiomyopathy 4. Underlying history of mechanical aortic valve replacement maintained on Coumadin 5. Underlying history of atrial fibrillation 6. Remote history of stroke 7. Evidence of colitis versus diverticulitis on computed tomography scan of the abdomen in the sigmoid colon patient was started on IV antibiotic Levaquin and Flagyl, will continue at this time. 8. Underlying history of chronic kidney disease stage III Will monitor CBC closely Patient is admitted to intensive care unit pulmonary critical care consultation requested in the emergency room, cardiology and gastroenterology consultation requested. I reviewed and reordered home medications. Cardiology and gastroenterology to decide in regard to anticoagulation and aspirin use Prognosis is guarded due to severity of illness, and the presence of gastrointestinal bleeding in the face of need to use anticoagulation.
[2019-11-24 16:09] VITALS: BMI 30.2
--- NOTE | 2019-11-24 16:10 | P.PN ---
Subjective Progress Note Date: 11/23/19 Alix Odonnell, is a 74-year-old female who was at her home sitting on the toilet when she felt very weak and dizzy, she was unable to stand up, she managed to call EMS who came to her home and helped her up her toilet seat she stated that they told her that there was blood in the toilet, patient was brought in to [facility] emergency room she was evaluated by Dr. Carlos hemoglobin was 12 Stool Hemoccult was positive BUN and creatinine was elevated at 39 and 1.6 patient has a known history of mechanical valve she is maintained on Coumadin, her INR on presentation was low at 1.3. Computed tomography scan of abdomen and pelvis without contrast was done in the emergency room and r evealed evidence of sigmoid colon inflammatory changes suggestive of colitis or diverticulitis she was started on IV antibiotics Levaquin and Flagyl in the emergency room. Patient was admitted to intensive care unit, cardiology consultation gastroenterology consultation and critical care consultations were requested. Patient was seen and examined in ICU she is alert and oriented 3 in no apparent distress she is complaining of generalized weakness otherwise she denies any complaints there is no fever or chills no headache or dizziness no chest pain no shortness of breath no cough no nausea or vomiting no abdominal pain no diarrhea no burning with urination no frequency or urgency and no hematuria. Her past medical history is significant for chronic systolic congestive heart failure, chronic kidney disease stage III, history of atrial fibrillation, history of stroke with residual left sided weakness, history of aortic mechanical valve replacement, maintained on Coumadin, remote history of abdominal aortic dissection and repair. On 11/19/2019 patient was seen and examined in the ICU, she is alert and oriented 3 in no apparent distress, there is no fever or chills no headache or dizziness no chest pain no shortness of breath no cough no nausea or vomiting no abdominal pain no diarrhea no burning with urination no frequency or urgency and no hematuria, patient underwent an EGD with Dr. Webb, results reviewed, input from Gen. surgery reviewed, at this time no surgical intervention scheduled, will start patient on full therapeutic dose of Lovenox until further decision in regard to any intervention is taken, if no intervention is required will start patient back on her Coumadin. On 11/20/2019 patient was seen and examined in the intensive care unit, she is alert and oriented 3 in no apparent distress there is no fever or chills no headache or dizziness no chest pain no shortness of breath no cough no nausea or vomiting no abdominal pain no diarrhea no burning was urination no frequency or urgency and no hematuria she is maintained on IV heparin drip. On 11/21/2019 patient was seen and examined on the medical floor she is alert and oriented 3 in no apparent distress there is no fever or chills no headache or dizziness no chest pain no shortness of breath no cough no nausea or vomiting no abdominal pain no diarrhea no blood in the stools no burning was urination no frequency or urgency and no hematuria, patient was evaluated by gastroenterology and cardiology, no intervention recommended at this time, Coumadin was restarted, she is still maintained on IV heparin until Coumadin is therapeutic, PT and OT were consulted for gait disturbance. On 11/22/2019 patient was seen and examined on the medical floor she is alert and oriented 3, her abdominal pain is improving there is no fever or chills no headache or dizziness no chest pain no shortness of breath no cough, no nausea or vomiting no diarrhea no blood in the stools no burning was urination no frequency or urgency and no hematuria On 11/23/2019 patient is doing better abdominal pain is improving she is starting to tolerate diet better there is no fever or chills no headache or dizziness no chest pain no shortness of breath no cough no nausea or vomiting no diarrhea no blood in the stools no burning was urination no frequency or urgency and no hematuria she is maintained on IV heparin until her Coumadin is therapeutic she has an artificial valve and INR should be 2.5-3.5 Objective - Vital Signs Vital signs: Vital Signs Temp 99.1 F 11/23/19 15:00 Pulse 88 11/23/19 15:00 Resp 20 11/23/19 15:00 BP 135/71 11/23/19 15:00 Pulse Ox 90 L 11/23/19 15:00 Intake & Output 11/22/19 11/23/19 11/23/19 18:59 06:59 18:59 Intake Total 2184.95 300 231.795 Balance 2184.95 300 231.795 Intake: IV 900 Sodium Chloride 0.9% 1, 800 000 ml @ 100 mls/hr IV . Q10H [facility] Rx#:[id number] metroNIDAZOLE-NS PMX 500 100 mg In Saline 1 100ml.bag @ 100 mls/hr IVPB Q8HR [place] Rx#:[id number] Intake, IV Titration 244.95 231.795 Amount Heparin Sod,Pork in 0.45% 244.95 231.795 NaCl 25,000 unit In 0.45 % NaCl 1 250ml.bag @ 11.5 UNITS/KG/HR 10.35 mls/hr IV .Q24H [facility] Rx#: [id number] Oral 1040 300 Other: Voiding Method Toilet Toilet Toilet # Voids 2 1 1 - Exam In general patient is alert and oriented 3 in no apparent distress HEENT head normocephalic and atraumatic Neck is supple no JVD no goiter no lymphadenopathy Chest exam reveals a few scattered rhonchi no wheezing Cardiac exam reveals regular heart sounds S1 and S2, with accentuated S2 and 3/6 systolic murmur in the left sternal border Abdomen is soft nontender no organomegaly with normal bowel sounds Extremity exam reveals no edema no cyanosis or clubbing Neurological examination reveals no acute gross deficit, chronic mild left sided weakness as compared to the right - Labs CBC & Chem 7: 11/23/19 10:23 11/23/19 10:23 Labs: Abnormal Lab Results - Last 24 Hours (Table) 11/23/19 11/23/19 11/23/19 Range/Units 10:23 10:23 10:23 RBC 3.51 L (3.80-5.40) m/uL Hgb 11.0 L (11.4-16.0) gm/dL Hct 33.8 L (34.0-46.0) % Lymphocytes # 0.8 L (1.0-4.8) k/uL PT 16.3 H (9.0-12.0) sec INR 1.7 H (<1.2) APTT 41.4 H (22.0-30.0) sec Chloride 113 H (98-107) mmol/L Carbon Dioxide 21 L (22-30) mmol/L Creatinine 1.13 H (0.52-1.04) mg/dL Glucose 107 H (74-99) mg/dL Calcium 10.6 H (8.4-10.2) mg/dL Total Protein 5.5 L (6.3-8.2) g/dL Albumin 2.5 L (3.5-5.0) g/dL Microbiology - Last 24 Hours (Table) 11/18/19 04:12 Blood Culture - Preliminary Blood No Growth after 120 hours Assessment and Plan Plan: 1. Generalized weakness, likely related to dehydration 2. Rectal bleeding 3. Underlying history of congestive heart failure with cardiomyopathy 4. Underlying history of mechanical aortic valve replacement maintained on Coumadin 5. Underlying history of atrial fibrillation 6. Remote history of stroke 7. Evidence of colitis versus diverticulitis on computed tomography scan of the abdomen in the sigmoid colon patient was started on IV antibiotic Levaquin and Flagyl, will continue at this time. 8. Underlying history of chronic kidney disease stage III Will monitor CBC closely Patient is admitted to intensive care unit pulmonary critical care consultation requested in the emergency room, cardiology and gastroenterology consultation requested. I reviewed and reordered home medications. Cardiology and gastroenterology to decide in regard to anticoagulation and aspirin use Prognosis is guarded due to severity of illness, and the presence of gastrointestinal bleeding in the face of need to use anticoagulation.
--- NOTE | 2019-11-24 16:11 | P.PN ---
Subjective Progress Note Date: 11/24/19 Alix Odonnell, is a 74-year-old female who was at her home sitting on the toilet when she felt very weak and dizzy, she was unable to stand up, she managed to call EMS who came to her home and helped her up her toilet seat she stated that they told her that there was blood in the toilet, patient was brought in to [facility] emergency room she was evaluated by Dr. Carlos hemoglobin was 12 Stool Hemoccult was positive BUN and creatinine was elevated at 39 and 1.6 patient has a known history of mechanical valve she is maintained on Coumadin, her INR on presentation was low at 1.3. Computed tomography scan of abdomen and pelvis without contrast was done in the emergency room and r evealed evidence of sigmoid colon inflammatory changes suggestive of colitis or diverticulitis she was started on IV antibiotics Levaquin and Flagyl in the emergency room. Patient was admitted to intensive care unit, cardiology consultation gastroenterology consultation and critical care consultations were requested. Patient was seen and examined in ICU she is alert and oriented 3 in no apparent distress she is complaining of generalized weakness otherwise she denies any complaints there is no fever or chills no headache or dizziness no chest pain no shortness of breath no cough no nausea or vomiting no abdominal pain no diarrhea no burning with urination no frequency or urgency and no hematuria. Her past medical history is significant for chronic systolic congestive heart failure, chronic kidney disease stage III, history of atrial fibrillation, history of stroke with residual left sided weakness, history of aortic mechanical valve replacement, maintained on Coumadin, remote history of abdominal aortic dissection and repair. On 11/19/2019 patient was seen and examined in the ICU, she is alert and oriented 3 in no apparent distress, there is no fever or chills no headache or dizziness no chest pain no shortness of breath no cough no nausea or vomiting no abdominal pain no diarrhea no burning with urination no frequency or urgency and no hematuria, patient underwent an EGD with Dr. Webb, results reviewed, input from Gen. surgery reviewed, at this time no surgical intervention scheduled, will start patient on full therapeutic dose of Lovenox until further decision in regard to any intervention is taken, if no intervention is required will start patient back on her Coumadin. On 11/20/2019 patient was seen and examined in the intensive care unit, she is alert and oriented 3 in no apparent distress there is no fever or chills no headache or dizziness no chest pain no shortness of breath no cough no nausea or vomiting no abdominal pain no diarrhea no burning was urination no frequency or urgency and no hematuria she is maintained on IV heparin drip. On 11/21/2019 patient was seen and examined on the medical floor she is alert and oriented 3 in no apparent distress there is no fever or chills no headache or dizziness no chest pain no shortness of breath no cough no nausea or vomiting no abdominal pain no diarrhea no blood in the stools no burning was urination no frequency or urgency and no hematuria, patient was evaluated by gastroenterology and cardiology, no intervention recommended at this time, Coumadin was restarted, she is still maintained on IV heparin until Coumadin is therapeutic, PT and OT were consulted for gait disturbance. On 11/22/2019 patient was seen and examined on the medical floor she is alert and oriented 3, her abdominal pain is improving there is no fever or chills no headache or dizziness no chest pain no shortness of breath no cough, no nausea or vomiting no diarrhea no blood in the stools no burning was urination no frequency or urgency and no hematuria On 11/23/2019 patient is doing better abdominal pain is improving she is starting to tolerate diet better there is no fever or chills no headache or dizziness no chest pain no shortness of breath no cough no nausea or vomiting no diarrhea no blood in the stools no burning was urination no frequency or urgency and no hematuria she is maintained on IV heparin until her Coumadin is therapeutic she has an artificial valve and INR should be 2.5-3.5 On 11/24/2019 patient was seen and examined on the medical floor she is alert and oriented 3 in no apparent distress she had episodes of severe shortness of breath last night repeat chest x-ray was done today and reveals pulmonary congestion and bilateral pleural effusion which is new she received IV Lasix o therwise there is no fever or chills no headache or dizziness no chest pain no cough no nausea or vomiting no abdominal pain no diarrhea no urinary symptoms Objective - Vital Signs Vital signs: Vital Signs Temp 98.3 F 11/24/19 14:41 Pulse 95 11/24/19 14:41 Resp 18 11/24/19 14:41 BP 114/63 11/24/19 14:41 Pulse Ox 95 11/24/19 14:41 Intake & Output 11/23/19 11/24/19 11/24/19 18:59 06:59 18:59 Intake Total 231.795 85.455 149.385 Balance 231.795 85.455 149.385 Intake: Intake, IV Titration 231.795 85.455 149.385 Amount Heparin Sod,Pork in 0.45% 231.795 85.455 149.385 NaCl 25,000 unit In 0.45 % NaCl 1 250ml.bag @ 11.5 UNITS/KG/HR 10.35 mls/hr IV .Q24H [facility] Rx#: [id number] Other: Voiding Method Toilet Toilet # Voids 1 1 1 - Exam In general patient is alert and oriented 3 in no apparent distress HEENT head normocephalic and atraumatic Neck is supple no JVD no goiter no lymphadenopathy Chest exam reveals a few scattered rhonchi no wheezing Cardiac exam reveals regular heart sounds S1 and S2, with accentuated S2 and 3/6 systolic murmur in the left sternal border Abdomen is soft nontender no organomegaly with normal bowel sounds Extremity exam reveals no edema no cyanosis or clubbing Neurological examination reveals no acute gross deficit, chronic mild left sided weakness as compared to the right - Labs CBC & Chem 7: 11/23/19 10:23 11/23/19 10:23 Labs: Abnormal Lab Results - Last 24 Hours (Table) 11/23/19 11/24/19 11/24/19 Range/Units 19:33 02:56 07:33 PT 20.8 H (9.0-12.0) sec INR 2.1 H (<1.2) APTT 66.5 H 57.9 H (22.0-30.0) sec Microbiology - Last 24 Hours (Table) 11/18/19 04:12 Blood Culture - Final Blood No Growth after 144 hours Assessment and Plan Plan: 1. Generalized weakness, likely related to dehydration 2. Rectal bleeding 3. Underlying history of congestive heart failure with cardiomyopathy 4. Underlying history of mechanical aortic valve replacement maintained on Cou madin 5. Underlying history of atrial fibrillation 6. Remote history of stroke 7. Evidence of colitis versus diverticulitis on computed tomography scan of the abdomen in the sigmoid colon patient was started on IV antibiotic Levaquin and Flagyl, will continue at this time. 8. Underlying history of chronic kidney disease stage III Will monitor CBC closely Patient is admitted to intensive care unit pulmonary critical care consultation requested in the emergency room, cardiology and gastroenterology consultation requested. I reviewed and reordered home medications. Cardiology and gastroenterology to decide in regard to anticoagulation and aspirin use Prognosis is guarded due to severity of illness, and the presence of gastrointestinal bleeding in the face of need to use anticoagulation.
[2019-11-24] MEDS: PRAVASTATIN SODIUM 20 MG TAB PO SCH (21:10)
[2019-11-24] MEDS: ENOXAPARIN 80 MG/0.8 ML SYRINGE SQ SCH (21:10)
[2019-11-25] MEDS: SODIUM CHLORIDE 0.9% 1,000 ML IV SCH ×2 (07:57→16:14)
[2019-11-25] MEDS: metroNIDAZOLE 500 MG TAB PO SCH ×3 (08:00→23:31)
[2019-11-25] MEDS: SPIRONOLACTONE 25 MG TAB PO SCH (08:00)
[2019-11-25] MEDS: FUROSEMIDE 80 MG TAB PO SCH (08:01)
[2019-11-25] MEDS: PANTOPRAZOLE 40 MG/10 ML VIAL IVP SCH ×2 (08:02→20:14)
[2019-11-25] MEDS: AMIODARONE 100 MG TAB PO SCH (08:08)
[2019-11-25] MEDS: ENOXAPARIN 80 MG/0.8 ML SYRINGE SQ SCH (08:09)
[2019-11-25 08:51] LABS: Basophils % (A) 1 %; Eosinophils # (A) 0.4 k/uL (0-0.7); Eosinophils % (A) 6 %; HCT 32.6 % (34.0-46.0); HGB 10.8 gm/dL (11.4-16.0); Hypochromasia Slight; Lymphocytes % (A) 15 %; MCH 32.1 pg (25.0-35.0); MCHC 33.2 g/dL (31.0-37.0); MCV 96.6 fL (80.0-100.0); Mean Platelet Volume 8.9; Monocytes # (A) 0.4 k/uL (0-1.0); Monocytes % (A) 6 %; Neutrophils # (A) 4.7 k/uL (1.3-7.7); Neutrophils % (A) 70 %; Platelet Count 211 k/uL (150-450); RBC 3.38 m/uL (3.80-5.40); RDW 15.3 % (11.5-15.5); WBC 6.7 k/uL (3.8-10.6)
[2019-11-25 09:08] LABS: INR 2.7 (<1.2); Partial Thromboplastin Time 35.7 sec (22.0-30.0); Prothrombin Time 26.8 sec (9.0-12.0)
[2019-11-25 09:21] LABS: Albumin 2.5 g/dL (3.5-5.0); Potassium 3.9 mmol/L (3.5-5.1); Total Bilirubin 0.4 mg/dL (0.2-1.3); Total Protein 5.7 g/dL (6.3-8.2)
--- NOTE | 2019-11-25 11:18 | P.PN ---
Subjective Progress Note Date: 11/25/19 Principal diagnosis: valvular heart disease this is a 74-year-old female patient with a past medical history significant for valvular heart disease and status post mechanical valve in aortic position, dual chamber pacemaker, and history of paroxysmal atrial fibrillation, who was admitted to the hospital with ischemic bowel disease. The patient was seen today, November 242019. Overall she is feeling better. She was restarted on Coumadin. INR today is 2.7. She is on Lovenox as well which we are going to stop at this point. She has any symptoms of chest pain or chest discomfort. We'll continue monitor the Coumadin. Objective - Vital Signs Vital signs: Vital Signs Temp 98.7 F 11/25/19 07:00 Pulse 16 L 11/25/19 08:00 Resp 16 11/25/19 08:00 BP 124/75 11/25/19 07:00 Pulse Ox 98 11/25/19 07:00 Intake & Output 11/24/19 11/25/19 11/25/19 18:59 06:59 18:59 Intake Total 149.385 100 Balance 149.385 100 Weight 90 kg Intake: Intake, IV Titration 149.385 Amount Heparin Sod,Pork in 0.45% 149.385 NaCl 25,000 unit In 0.45 % NaCl 1 250ml.bag @ 11.5 UNITS/KG/HR 10.35 mls/hr IV .Q24H [facility] Rx#: [id number] Oral 100 Other: Voiding Method Toilet Toilet # Voids 1 0 - Constitutional General appearance: Present: no acute distress - Respiratory Respiratory: bilateral: CTA - Cardiovascular Rhythm: regular - Labs CBC & Chem 7: 11/25/19 08:05 11/25/19 08:05 Labs: Abnormal Lab Results - Last 24 Hours (Table) 11/25/19 11/25/19 11/25/19 Range/Units 08:05 08:05 08:05 RBC 3.38 L (3.80-5.40) m/uL Hgb 10.8 L (11.4-16.0) gm/dL Hct 32.6 L (34.0-46.0) % PT 26.8 H (9.0-12.0) sec INR 2.7 H (<1.2) APTT 35.7 H (22.0-30.0) sec Chloride 110 H (98-107) mmol/L Creatinine 1.19 H (0.52-1.04) mg/dL Glucose 122 H (74-99) mg/dL Calcium 11.0 H (8.4-10.2) mg/dL Total Protein 5.7 L (6.3-8.2) g/dL Albumin 2.5 L (3.5-5.0) g/dL Assessment and Plan Assessment: assessment #1 ischemic cold disease #2 paroxysmal atrial fibrillation #3 valvular heart disease as described above #4 multiple comorbid conditions #5 status post permanent pacemaker Plan #1 discontinue Lovenox #2 continue Coumadin #3 continue monitoring the INR #4 follow-up with the patient
--- NOTE | 2019-11-25 14:25 | P.PN ---
Subjective Progress Note Date: 11/25/19 Alix Odonnell, is a 74-year-old female who was at her home sitting on the toilet when she felt very weak and dizzy, she was unable to stand up, she managed to call EMS who came to her home and helped her up her toilet seat she stated that they told her that there was blood in the toilet, patient was brought in to [facility] emergency room she was evaluated by Dr. Carlos hemoglobin was 12 Stool Hemoccult was positive BUN and creatinine was elevated at 39 and 1.6 patient has a known history of mechanical valve she is maintained on Coumadin, her INR on presentation was low at 1.3. Computed tomography scan of abdomen and pelvis without contrast was done in the emergency room and r evealed evidence of sigmoid colon inflammatory changes suggestive of colitis or diverticulitis she was started on IV antibiotics Levaquin and Flagyl in the emergency room. Patient was admitted to intensive care unit, cardiology consultation gastroenterology consultation and critical care consultations were requested. Patient was seen and examined in ICU she is alert and oriented 3 in no apparent distress she is complaining of generalized weakness otherwise she denies any complaints there is no fever or chills no headache or dizziness no chest pain no shortness of breath no cough no nausea or vomiting no abdominal pain no diarrhea no burning with urination no frequency or urgency and no hematuria. Her past medical history is significant for chronic systolic congestive heart failure, chronic kidney disease stage III, history of atrial fibrillation, history of stroke with residual left sided weakness, history of aortic mechanical valve replacement, maintained on Coumadin, remote history of abdominal aortic dissection and repair. On 11/19/2019 patient was seen and examined in the ICU, she is alert and oriented 3 in no apparent distress, there is no fever or chills no headache or dizziness no chest pain no shortness of breath no cough no nausea or vomiting no abdominal pain no diarrhea no burning with urination no frequency or urgency and no hematuria, patient underwent an EGD with Dr. Webb, results reviewed, input from Gen. surgery reviewed, at this time no surgical intervention scheduled, will start patient on full therapeutic dose of Lovenox until further decision in regard to any intervention is taken, if no intervention is required will start patient back on her Coumadin. On 11/20/2019 patient was seen and examined in the intensive care unit, she is alert and oriented 3 in no apparent distress there is no fever or chills no headache or dizziness no chest pain no shortness of breath no cough no nausea or vomiting no abdominal pain no diarrhea no burning was urination no frequency or urgency and no hematuria she is maintained on IV heparin drip. On 11/21/2019 patient was seen and examined on the medical floor she is alert and oriented 3 in no apparent distress there is no fever or chills no headache or dizziness no chest pain no shortness of breath no cough no nausea or vomiting no abdominal pain no diarrhea no blood in the stools no burning was urination no frequency or urgency and no hematuria, patient was evaluated by gastroenterology and cardiology, no intervention recommended at this time, Coumadin was restarted, she is still maintained on IV heparin until Coumadin is therapeutic, PT and OT were consulted for gait disturbance. On 11/22/2019 patient was seen and examined on the medical floor she is alert and oriented 3, her abdominal pain is improving there is no fever or chills no headache or dizziness no chest pain no shortness of breath no cough, no nausea or vomiting no diarrhea no blood in the stools no burning was urination no frequency or urgency and no hematuria On 11/23/2019 patient is doing better abdominal pain is improving she is starting to tolerate diet better there is no fever or chills no headache or dizziness no chest pain no shortness of breath no cough no nausea or vomiting no diarrhea no blood in the stools no burning was urination no frequency or urgency and no hematuria she is maintained on IV heparin until her Coumadin is therapeutic she has an artificial valve and INR should be 2.5-3.5 On 11/24/2019 patient was seen and examined on the medical floor she is alert and oriented 3 in no apparent distress she had episodes of severe shortness of breath last night repeat chest x-ray was done today and reveals pulmonary congestion and bilateral pleural effusion which is new she received IV Lasix o therwise there is no fever or chills no headache or dizziness no chest pain no cough no nausea or vomiting no abdominal pain no diarrhea no urinary symptoms On 11/25/2019 patient was seen and examined on the medical floor she is alert and oriented, she is complaining of nausea otherwise she denies any complaints at this time, there is no fever or chills no headache or dizziness no chest pain no shortness of breath no cough, no vomiting no abdominal pain no diarrhea no blood in the stools no burning with urination no frequency or urgency and no hematuria Objective - Vital Signs Vital signs: Vital Signs Temp 98.7 F 11/25/19 07:00 Pulse 75 11/25/19 07:00 Resp 16 11/25/19 08:00 BP 124/75 11/25/19 07:00 Pulse Ox 98 11/25/19 07:00 Intake & Output 11/24/19 11/25/19 11/25/19 18:59 06:59 18:59 Intake Total 149.385 100 Balance 149.385 100 Weight 90 kg Intake: Intake, IV Titration 149.385 Amount Heparin Sod,Pork in 0.45% 149.385 NaCl 25,000 unit In 0.45 % NaCl 1 250ml.bag @ 11.5 UNITS/KG/HR 10.35 mls/hr IV .Q24H [facility] Rx#: [id number] Oral 100 Other: Voiding Method Toilet Toilet # Voids 1 0 1 - Exam In general patient is alert and oriented 3 in no apparent distress HEENT head normocephalic and atraumatic Neck is supple no JVD no goiter no lymphadenopathy Chest exam reveals a few scattered rhonchi no wheezing Cardiac exam reveals regular heart sounds S1 and S2, with accentuated S2 and 3/6 systolic murmur in the left sternal border Abdomen is soft nontender no organomegaly with normal bowel sounds Extremity exam reveals no edema no cyanosis or clubbing Neurological examination reveals no acute gross deficit, chronic mild left sided weakness as compared to the right - Labs CBC & Chem 7: 11/25/19 08:05 11/25/19 08:05 Labs: Abnormal Lab Results - Last 24 Hours (Table) 11/25/19 11/25/19 11/25/19 Range/Units 08:05 08:05 08:05 RBC 3.38 L (3.80-5.40) m/uL Hgb 10.8 L (11.4-16.0) gm/dL Hct 32.6 L (34.0-46.0) % PT 26.8 H (9.0-12.0) sec INR 2.7 H (<1.2) APTT 35.7 H (22.0-30.0) sec Chloride 110 H (98-107) mmol/L Creatinine 1.19 H (0.52-1.04) mg/dL Glucose 122 H (74-99) mg/dL Calcium 11.0 H (8.4-10.2) mg/dL Total Protein 5.7 L (6.3-8.2) g/dL Albumin 2.5 L (3.5-5.0) g/dL Assessment and Plan Plan: 1. Generalized weakness, likely related to dehydration 2. Rectal bleeding 3. Underlying history of congestive heart failure with cardiomyopathy 4. Underlying history of mechanical aortic valve replacement maintained on Coumadin 5. Underlying history of atrial fibrillation 6. Remote history of stroke 7. Evidence of colitis versus diverticulitis on computed tomography scan of the abdomen in the sigmoid colon patient was started on IV antibiotic Levaquin and Flagyl, will continue at this time. Patient underwent EGD with Dr. Black which r evealed evidence of ischemic gastritis 8. Underlying history of chronic kidney disease stage III Will monitor CBC closely Patient is admitted to intensive care unit pulmonary critical care consultation requested in the emergency room, cardiology and gastroenterology consultation requested. I reviewed and reordered home medications. Cardiology and gastroenterology to decide in regard to anticoagulation and aspirin use Prognosis is guarded due to severity of illness, and the presence of gastro intestinal bleeding in the face of need to use anticoagulation.
--- NOTE | 2019-11-25 15:01 | P.PN ---
Subjective Progress Note Date: 11/25/19 Principal diagnosis: Lower GI bleeding, diverticulitis/colitis The patient is seen today Nov 25 2019 in follow-up on the regular medical floor. She remains awake and alert in no acute distress. She is maintaining good O2 saturations in the high 90s on 2 L/m per nasal cannula. She's been afebrile. Hemodynamically stable. White count 6.7. Hemoglobin 10.8. INR 2.7. Sodium 138. Potassium 3.9. Creatinine 1.19. Objective - Vital Signs Vital signs: Vital Signs Temp 98.7 F 11/25/19 07:00 Pulse 75 11/25/19 07:00 Resp 16 11/25/19 08:00 BP 124/75 11/25/19 07:00 Pulse Ox 98 11/25/19 07:00 Intake & Output 11/24/19 11/25/19 11/25/19 18:59 06:59 18:59 Intake Total 149.385 100 Balance 149.385 100 Weight 90 kg Intake: Intake, IV Titration 149.385 Amount Heparin Sod,Pork in 0.45% 149.385 NaCl 25,000 unit In 0.45 % NaCl 1 250ml.bag @ 11.5 UNITS/KG/HR 10.35 mls/hr IV .Q24H [facility] Rx#: [id number] Oral 100 Other: Voiding Method Toilet Toilet # Voids 1 0 1 - Exam GENERAL EXAM: Alert, pleasant 74-year-old female patient, on 2 L nasal cannula, comfortable in no apparent distress. HEAD: Normocephalic. EYES: Normal reaction of pupils, equal size. NOSE: Clear with pink turbinates. THROAT: No erythema or exudates. NECK: No masses, no JVD. CHEST: No chest wall deformity. LUNGS: Equal air entry with crackles in the bilateral posterior bases. CVS: S1 and S2 normal with no audible murmur, regular rhythm. ABDOMEN: No hepatosplenomegaly, normal bowel sounds, no guarding or rigidity. SPINE: No scoliosis or deformity SKIN: No rashes CENTRAL NERVOUS SYSTEM: No focal deficits, tone is normal in all 4 extremities. EXTREMITIES: There is no peripheral edema. No clubbing, no cyanosis. Peripheral pulses are intact. - Labs CBC & Chem 7: 11/25/19 08:05 11/25/19 08:05 Labs: Abnormal Lab Results - Last 24 Hours (Table) 11/25/19 11/25/19 11/25/19 Range/Units 08:05 08:05 08:05 RBC 3.38 L (3.80-5.40) m/uL Hgb 10.8 L (11.4-16.0) gm/dL Hct 32.6 L (34.0-46.0) % PT 26.8 H (9.0-12.0) sec INR 2.7 H (<1.2) APTT 35.7 H (22.0-30.0) sec Chloride 110 H (98-107) mmol/L Creatinine 1.19 H (0.52-1.04) mg/dL Glucose 122 H (74-99) mg/dL Calcium 11.0 H (8.4-10.2) mg/dL Total Protein 5.7 L (6.3-8.2) g/dL Albumin 2.5 L (3.5-5.0) g/dL Assessment and Plan Assessment: #1. Acute lower GI bleeding secondary to ischemic gastritis, EGD showed severe ischemic-appearing gastritis involving the proximal body and anti-her fundus of the stomach, there was mucosal erythema, friability, congestion and superficial ulceration and bluish discoloration of the mucosa. Patient has had no further bleeding, she has been restarted on Coumadin and her INR is 2.7 #2. History of mechanical aortic valve #3. History of CVA/TIA #4. Acute colitis/diverticulitis #5. Acute on chronic kidney disease, related to hypovolemia and hypotension/acute tubular necrosis, improving #6. Acute exacerbation of diastolic congestive heart failure, received IV Lasix today Plan: The patient was seen and evaluated by Dr. Paulson Currently stable from the pulmonary standpoint Titrate down the FiO2 We will continue to follow I, the cosigning physician, performed a history & physical examination of the patient. Lungs sounds with crackles in the bilateral posterior bases. Maintaining good O2 saturations in the 90s on 2 L/m per nasal cannula. I discussed the assessment and plan of care with my nurse practitioner, Jenn Jiang. I attest to the above note as dictated by her.
[2019-11-25] MEDS: WARFARIN 5 MG TAB PO SCH (16:58)
[2019-11-25] MEDS: PRAVASTATIN SODIUM 20 MG TAB PO SCH (20:14)
[2019-11-26] MEDS: SODIUM CHLORIDE 0.9% 1,000 ML IV SCH ×2 (07:23→15:27)
[2019-11-26 07:38] LABS: INR 3.3 (<1.2); Prothrombin Time 32.7 sec (9.0-12.0)
[2019-11-26 07:48] LABS: Albumin 2.4 g/dL (3.5-5.0); Calcium 10.6 mg/dL (8.4-10.2); Potassium 3.7 mmol/L (3.5-5.1); Total Bilirubin 0.3 mg/dL (0.2-1.3); Total Protein 5.5 g/dL (6.3-8.2)
[2019-11-26 07:54] LABS: HCT 31.9 % (34.0-46.0); Hypochromasia Slight; MCH 30.1 pg (25.0-35.0); MCHC 31.3 g/dL (31.0-37.0); MCV 96.3 fL (80.0-100.0); Mean Platelet Volume 8.3; Platelet Count 252 k/uL (150-450); RBC 3.31 m/uL (3.80-5.40); RDW 15.1 % (11.5-15.5); WBC 5.3 k/uL (3.8-10.6)
[2019-11-26] MEDS: PANTOPRAZOLE 40 MG/10 ML VIAL IVP SCH ×2 (08:17→20:07)
[2019-11-26] MEDS: FUROSEMIDE 80 MG TAB PO SCH (08:17)
[2019-11-26] MEDS: AMIODARONE 100 MG TAB PO SCH (08:17)
[2019-11-26] MEDS: metroNIDAZOLE 500 MG TAB PO SCH ×3 (08:17→23:54)
[2019-11-26] MEDS: SPIRONOLACTONE 25 MG TAB PO SCH (08:17)
[2019-11-26 08:46] LABS: Eosinophils # (M) 0.32 k/uL (0-0.7); Lymphocytes # (M) 1.38 k/uL (1.0-4.8); Monocytes # (M) 0.21 k/uL (0-1.0); Neutrophils # (M) 3.39 k/uL (1.3-7.7); Neutrophils % (M) 64 %; Nucleated Red Blood Cells 0 /100 WBC (0-0); Total Cells Counted 100
[2019-11-26 08:47] LABS: Anisocytosis (M) Present
--- NOTE | 2019-11-26 10:05 | P.PN ---
Subjective Progress Note Date: 11/26/19 Principal diagnosis: valvular heart disease this is a 74-year-old female patient with a past medical history significant for valvular heart disease and status post mechanical valve in aortic position, dual chamber pacemaker, and history of paroxysmal atrial fibrillation, who was admitted to the hospital with ischemic bowel disease. The patient was seen today, November 252019. She is overall doing good and denies any symptoms of chest pain or chest discomfort, shortness of breath, or dizziness. The INR today is therapeutic. Yesterday I did stop the Lovenox. From the cardiovascular standpoint of view, the patient can be discharged to extended-care facility tomorrow. Objective - Vital Signs Vital signs: Vital Signs Temp 98.5 F 11/26/19 07:00 Pulse 76 11/26/19 07:00 Resp 20 11/26/19 07:00 BP 137/76 11/26/19 07:00 Pulse Ox 97 11/26/19 07:00 Intake & Output 11/25/19 11/26/19 11/26/19 18:59 06:59 18:59 Intake Total 100 200 Balance 100 200 Intake: Oral 100 200 Other: Voiding Method Toilet Toilet # Voids 1 1 - Constitutional General appearance: Present: no acute distress - Respiratory Respiratory: bilateral: CTA - Cardiovascular Rhythm: regular - Labs CBC & Chem 7: 11/26/19 06:49 11/26/19 06:49 Labs: Abnormal Lab Results - Last 24 Hours (Table) 11/26/19 11/26/19 11/26/19 Range/Units 06:49 06:49 06:49 RBC 3.31 L (3.80-5.40) m/uL Hgb 10.0 L (11.4-16.0) gm/dL Hct 31.9 L (34.0-46.0) % PT 32.7 H (9.0-12.0) sec INR 3.3 H (<1.2) Sodium 136 L (137-145) mmol/L Creatinine 1.21 H (0.52-1.04) mg/dL Calcium 10.6 H (8.4-10.2) mg/dL Total Protein 5.5 L (6.3-8.2) g/dL Albumin 2.4 L (3.5-5.0) g/dL Assessment and Plan Assessment: assessment #1 ischemic cold disease #2 paroxysmal atrial fibrillation #3 valvular heart disease as described above #4 multiple comorbid conditions #5 status post permanent pacemaker Plan #1 continue the current medical regimen #2 continue Coumadin #3 continue monitoring the INR #4 follow-up with the patient on when necessaryt
--- NOTE | 2019-11-26 11:06 | P.PN ---
Subjective Progress Note Date: 11/26/19 Alix Odonnell, is a 74-year-old female who was at her home sitting on the toilet when she felt very weak and dizzy, she was unable to stand up, she managed to call EMS who came to her home and helped her up her toilet seat she stated that they told her that there was blood in the toilet, patient was brought in to [facility] emergency room she was evaluated by Dr. Carlos hemoglobin was 12 Stool Hemoccult was positive BUN and creatinine was elevated at 39 and 1.6 patient has a known history of mechanical valve she is maintained on Coumadin, her INR on presentation was low at 1.3. Computed tomography scan of abdomen and pelvis without contrast was done in the emergency room and r evealed evidence of sigmoid colon inflammatory changes suggestive of colitis or diverticulitis she was started on IV antibiotics Levaquin and Flagyl in the emergency room. Patient was admitted to intensive care unit, cardiology consultation gastroenterology consultation and critical care consultations were requested. Patient was seen and examined in ICU she is alert and oriented 3 in no apparent distress she is complaining of generalized weakness otherwise she denies any complaints there is no fever or chills no headache or dizziness no chest pain no shortness of breath no cough no nausea or vomiting no abdominal pain no diarrhea no burning with urination no frequency or urgency and no hematuria. Her past medical history is significant for chronic systolic congestive heart failure, chronic kidney disease stage III, history of atrial fibrillation, history of stroke with residual left sided weakness, history of aortic mechanical valve replacement, maintained on Coumadin, remote history of abdominal aortic dissection and repair. On 11/19/2019 patient was seen and examined in the ICU, she is alert and oriented 3 in no apparent distress, there is no fever or chills no headache or dizziness no chest pain no shortness of breath no cough no nausea or vomiting no abdominal pain no diarrhea no burning with urination no frequency or urgency and no hematuria, patient underwent an EGD with Dr. Webb, results reviewed, input from Gen. surgery reviewed, at this time no surgical intervention scheduled, will start patient on full therapeutic dose of Lovenox until further decision in regard to any intervention is taken, if no intervention is required will start patient back on her Coumadin. On 11/20/2019 patient was seen and examined in the intensive care unit, she is alert and oriented 3 in no apparent distress there is no fever or chills no headache or dizziness no chest pain no shortness of breath no cough no nausea or vomiting no abdominal pain no diarrhea no burning was urination no frequency or urgency and no hematuria she is maintained on IV heparin drip. On 11/21/2019 patient was seen and examined on the medical floor she is alert and oriented 3 in no apparent distress there is no fever or chills no headache or dizziness no chest pain no shortness of breath no cough no nausea or vomiting no abdominal pain no diarrhea no blood in the stools no burning was urination no frequency or urgency and no hematuria, patient was evaluated by gastroenterology and cardiology, no intervention recommended at this time, Coumadin was restarted, she is still maintained on IV heparin until Coumadin is therapeutic, PT and OT were consulted for gait disturbance. On 11/22/2019 patient was seen and examined on the medical floor she is alert and oriented 3, her abdominal pain is improving there is no fever or chills no headache or dizziness no chest pain no shortness of breath no cough, no nausea or vomiting no diarrhea no blood in the stools no burning was urination no frequency or urgency and no hematuria On 11/23/2019 patient is doing better abdominal pain is improving she is starting to tolerate diet better there is no fever or chills no headache or dizziness no chest pain no shortness of breath no cough no nausea or vomiting no diarrhea no blood in the stools no burning was urination no frequency or urgency and no hematuria she is maintained on IV heparin until her Coumadin is therapeutic she has an artificial valve and INR should be 2.5-3.5 On 11/24/2019 patient was seen and examined on the medical floor she is alert and oriented 3 in no apparent distress she had episodes of severe shortness of breath last night repeat chest x-ray was done today and reveals pulmonary congestion and bilateral pleural effusion which is new she received IV Lasix o therwise there is no fever or chills no headache or dizziness no chest pain no cough no nausea or vomiting no abdominal pain no diarrhea no urinary symptoms On 11/25/2019 patient was seen and examined on the medical floor she is alert and oriented, she is complaining of nausea otherwise she denies any complaints at this time, there is no fever or chills no headache or dizziness no chest pain no shortness of breath no cough, no vomiting no abdominal pain no diarrhea no blood in the stools no burning with urination no frequency or urgency and no hematuria. On 11/26/2019 patient was seen and examined on the medical floor she is feeling better nausea and abdominal discomfort has improved since yesterday, there is no fever or chills no headache or dizziness no chest pain no shortness of breath no cough no nausea or vomiting no abdominal pain no diarrhea no blood in the stools no burning was urination no frequency or urgency and no hematuria, INR is in the therapeutic range now and Lovenox was discontinued yesterday. Plan is to transfer to rehab tomorrow. Objective - Vital Signs Vital signs: Vital Signs Temp 98.5 F 11/26/19 07:00 Pulse 76 11/26/19 07:00 Resp 20 11/26/19 07:00 BP 137/76 11/26/19 07:00 Pulse Ox 97 11/26/19 07:00 Intake & Output 11/25/19 11/26/19 11/26/19 18:59 06:59 18:59 Intake Total 100 200 Balance 100 200 Intake: Oral 100 200 Other: Voiding Method Toilet Toilet # Voids 1 1 - Exam In general patient is alert and oriented 3 in no apparent distress HEENT head normocephalic and atraumatic Neck is supple no JVD no goiter no lymphadenopathy Chest exam reveals a few scattered rhonchi no wheezing Cardiac exam reveals regular heart sounds S1 and S2, with accentuated S2 and 3/6 systolic murmur in the left sternal border Abdomen is soft nontender no organomegaly with normal bowel sounds Extremity exam reveals no edema no cyanosis or clubbing Neurological examination reveals no acute gross deficit, chronic mild left sided weakness as compared to the right - Labs CBC & Chem 7: 11/26/19 06:49 11/26/19 06:49 Labs: Abnormal Lab Results - Last 24 Hours (Table) 11/26/19 11/26/19 11/26/19 Range/Units 06:49 06:49 06:49 RBC 3.31 L (3.80-5.40) m/uL Hgb 10.0 L (11.4-16.0) gm/dL Hct 31.9 L (34.0-46.0) % PT 32.7 H (9.0-12.0) sec INR 3.3 H (<1.2) Sodium 136 L (137-145) mmol/L Creatinine 1.21 H (0.52-1.04) mg/dL Calcium 10.6 H (8.4-10.2) mg/dL Total Protein 5.5 L (6.3-8.2) g/dL Albumin 2.4 L (3.5-5.0) g/dL Assessment and Plan Plan: 1. Generalized weakness, likely related to dehydration 2. Rectal bleeding, resolved EGD revealed evidence of ischemic gastritis 3. Underlying history of congestive heart failure with cardiomyopathy 4. Underlying history of mechanical aortic valve replacement maintained on Coumadin 5. Underlying history of atrial fibrillation 6. Remote history of stroke 7. Evidence of colitis versus diverticulitis on computed tomography scan of the abdomen in the sigmoid colon patient was started on IV antibiotic Levaquin and Flagyl, will continue at this time. Patient underwent EGD with Dr. Black which revealed evidence of ischemic gastritis 8. Underlying history of chronic kidney disease stage III Will monitor CBC closely Patient is admitted to intensive care unit pulmonary critical care consultation requested in the emergency room, cardiology and gastroenterology consultation requested. I reviewed and reordered home medications. Cardiology and gastroenterology to decide in regard to anticoagulation and aspirin use Prognosis is guarded due to severity of illness, and the presence of gastrointestinal bleeding in the face of need to use anticoagulation.
--- NOTE | 2019-11-26 13:31 | P.PN ---
Subjective Progress Note Date: 11/26/19 Principal diagnosis: Lower GI bleeding, diverticulitis/colitis The patient is seen today 11/26/2019 in follow-up on the regular medical floor. She is awake and alert in no acute distress. Currently sitting up in a chair at the bedside. She's been afebrile. Hemodynamically stable. Maintaining good O2 saturations in the 90s on room air. Blood cultures reveal no growth. White count 5.3. Hemoglobin 10.0. INR 3.3. Sodium 136. Potassium 3.7. Creatinine 1.21. Objective - Vital Signs Vital signs: Vital Signs Temp 98.5 F 11/26/19 07:00 Pulse 76 11/26/19 07:00 Resp 20 11/26/19 07:00 BP 137/76 11/26/19 07:00 Pulse Ox 97 11/26/19 07:00 Intake & Output 11/25/19 11/26/19 11/26/19 18:59 06:59 18:59 Intake Total 100 200 Balance 100 200 Intake: Oral 100 200 Other: Voiding Method Toilet Toilet # Voids 1 1 - Exam GENERAL EXAM: Alert, pleasant 74-year-old female patient, on room air, comfortable in no apparent distress. HEAD: Normocephalic. EYES: Normal reaction of pupils, equal size. NOSE: Clear with pink turbinates. THROAT: No erythema or exudates. NECK: No masses, no JVD. CHEST: No chest wall deformity. LUNGS: Equal air entry with crackles in the bilateral posterior bases. CVS: S1 and S2 normal with no audible murmur, regular rhythm. ABDOMEN: No hepatosplenomegaly, normal bowel sounds, no guarding or rigidity. SPINE: No scoliosis or deformity SKIN: No rashes CENTRAL NERVOUS SYSTEM: No focal deficits, tone is normal in all 4 extremities. EXTREMITIES: There is no peripheral edema. No clubbing, no cyanosis. Peripheral pulses are intact. - Labs CBC & Chem 7: 11/26/19 06:49 11/26/19 06:49 Labs: Abnormal Lab Results - Last 24 Hours (Table) 11/26/19 11/26/19 11/26/19 Range/Units 06:49 06:49 06:49 RBC 3.31 L (3.80-5.40) m/uL Hgb 10.0 L (11.4-16.0) gm/dL Hct 31.9 L (34.0-46.0) % PT 32.7 H (9.0-12.0) sec INR 3.3 H (<1.2) Sodium 136 L (137-145) mmol/L Creatinine 1.21 H (0.52-1.04) mg/dL Calcium 10.6 H (8.4-10.2) mg/dL Total Protein 5.5 L (6.3-8.2) g/dL Albumin 2.4 L (3.5-5.0) g/dL Assessment and Plan Assessment: #1. Acute lower GI bleeding secondary to ischemic gastritis, EGD showed severe ischemic-appearing gastritis involving the proximal body and anti-her fundus of the stomach, there was mucosal erythema, friability, congestion and superficial ulceration and bluish discoloration of the mucosa. Patient has had no further bleeding, she has been restarted on Coumadin and her INR is 3.3 #2. History of mechanical aortic valve #3. History of CVA/TIA #4. Acute colitis/diverticulitis #5. Acute on chronic kidney disease, related to hypovolemia and hypotension/acute tubular necrosis, improving #6. Acute exacerbation of diastolic congestive heart failure, received IV Lasix today Plan: The patient was seen and evaluated by Dr. Paulson Currently stable from the pulmonary standpoint Currently on room air We will continue to follow I, the cosigning physician, performed a history & physical examination of the patient. Lungs sounds with crackles in the bilateral posterior bases. Maintaining good O2 saturations in the 90s on room air. I discussed the assessment and plan of care with my nurse practitioner, Jenn Jiang. I attest to the above note as dictated by her.
[2019-11-26] MEDS: PRAVASTATIN SODIUM 20 MG TAB PO SCH (20:07)
[2019-11-27] MEDS: SODIUM CHLORIDE 0.9% 1,000 ML IV SCH ×2 (00:26→12:19)
[2019-11-27] MEDS: PANTOPRAZOLE 40 MG/10 ML VIAL IVP SCH (07:45)
[2019-11-27] MEDS: metroNIDAZOLE 500 MG TAB PO SCH (07:45)
[2019-11-27] MEDS: FUROSEMIDE 80 MG TAB PO SCH (07:45)
[2019-11-27] MEDS: AMIODARONE 100 MG TAB PO SCH (07:46)
[2019-11-27] MEDS: SPIRONOLACTONE 25 MG TAB PO SCH (07:46)
[2019-11-27 08:41] LABS: INR 3.3 (<1.2); Prothrombin Time 32.3 sec (9.0-12.0)
[2019-11-27 09:32] VITALS: BP 146/82; PULSE 72; RESP 17; TEMP 98.4
--- NOTE | 2019-11-27 13:06 | P.DS ---
Providers Date of admission: 11/18/19 04:36 Expected date of discharge: 11/27/19 Attending physician: Pauly Sosa Consults: 11/18/19 04:36 Consult Physician Routine Consulting Provider: Meg Webb Consult Reason/Comments: GI bleed Do you want consulting provider notified?: Yes 11/18/19 05:32 Consult Physician Routine Consulting Provider: Enrique Campos Consult Reason/Comments: GI bleed, on Coumadin, history of mechanical valve Do you want consulting provider notified?: Yes 11/18/19 05:35 Consult Physician Urgent Consulting Provider: William Vale Consult Reason/Comments: ICU management Do you want consulting provider notified?: Already Contacted Primary care physician: Pauly Sosa [facility] Course: Diagnoses on discharge: 1. Generalized weakness, likely related to dehydration 2. Rectal bleeding, resolved EGD revealed evidence of ischemic gastritis 3. Underlying history of congestive heart failure with cardiomyopathy 4. Underlying history of mechanical aortic valve replacement maintained on Coumadin 5. Underlying history of atrial fibrillation 6. Remote history of stroke 7. Evidence of colitis versus diverticulitis on computed tomography scan of the abdomen in the sigmoid colon patient was started on IV antibiotic Levaquin and Flagyl, will continue at this time. Patient underwent EGD with Dr. Black which revealed evidence of ischemic gastritis 8. Underlying history of chronic kidney disease stage III Hospital Course: Alix Odonnell, is a 74-year-old female who was at her home sitting on the toilet when she felt very weak and dizzy, she was unable to stand up, she managed to call EMS who came to her home and helped her up her toilet seat she stated that they told her that there was blood in the toilet, patient was brought in to [facility] emergency room she was evaluated by Dr. Carlos hemoglobin was 12 Stool Hemoccult was positive BUN and creatinine was elevated at 39 and 1.6 patient has a known history of mechanical valve she is maintained on Coumadin, her INR on presentation was low at 1.3. Computed tomography scan of abdomen and pelvis without contrast was done in the emergency room and revealed evidence of sigmoid colon inflammatory changes suggestive of colitis or diverticulitis she was started on IV antibiotics Levaquin and Flagyl in the emergency room. Patient was admitted to intensive care unit, cardiology consultation gastroenterology consultation and critical care consultations were requested. Patient was seen and examined in ICU she is alert and oriented 3 in no apparent distress she is complaining of generalized weakness otherwise she denies any complaints there is no fever or chills no headache or dizziness no chest pain no shortness of breath no cough no nausea or vomiting no abdominal pain no diarrhea no burning with urination no frequency or urgency and no hematuria. Her past medical history is significant for chronic systolic congestive heart failure, chronic kidney disease stage III, history of atrial fibrillation, history of stroke with residual left sided weakness, history of aortic mechanical valve replacement, maintained on Coumadin, remote history of abdominal aortic dissection and repair. On 11/19/2019 patient was seen and examined in the ICU, she is alert and oriented 3 in no apparent distress, there is no fever or chills no headache or dizziness no chest pain no shortness of breath no cough no nausea or vomiting no abdominal pain no diarrhea no burning with urination no frequency or urgency and no hematuria, patient underwent an EGD with Dr. Webb, results reviewed, input from Gen. surgery reviewed, at this time no surgical intervention scheduled, will start patient on full therapeutic dose of Lovenox until further decision in regard to any intervention is taken, if no intervention is required will start patient back on her Coumadin. On 11/20/2019 patient was seen and examined in the intensive care unit, she is alert and oriented 3 in no apparent distress there is no fever or chills no headache or dizziness no chest pain no shortness of breath no cough no nausea or vomiting no abdominal pain no diarrhea no burning was urination no frequency or urgency and no hematuria she is maintained on IV heparin drip. On 11/21/2019 patient was seen and examined on the medical floor she is alert and oriented 3 in no apparent distress there is no fever or chills no headache or dizziness no chest pain no shortness of breath no cough no nausea or vomiting no abdominal pain no diarrhea no blood in the stools no burning was urination no frequency or urgency and no hematuria, patient was evaluated by gastroenterology and cardiology, no intervention recommended at this time, Coumadin was restarted, she is still maintained on IV heparin until Coumadin is therapeutic, PT and OT were consulted for gait disturbance. On 11/22/2019 patient was seen and examined on the medical floor she is alert and oriented 3, her abdominal pain is improving there is no fever or chills no headache or dizziness no chest pain no shortness of breath no cough, no nausea or vomiting no diarrhea no blood in the stools no burning was urination no frequency or urgency and no hematuria On 11/23/2019 patient is doing better abdominal pain is improving she is starting to tolerate diet better there is no fever or chills no headache or dizziness no chest pain no shortness of breath no cough no nausea or vomiting no diarrhea no blood in the stools no burning was urination no frequency or urgency and no hematuria she is maintained on IV heparin until her Coumadin is therapeutic she has an artificial valve and INR should be 2.5-3.5 On 11/24/2019 patient was seen and examined on the medical floor she is alert and oriented 3 in no apparent distress she had episodes of severe shortness of breath last night repeat chest x-ray was done today and reveals pulmonary congestion and bilateral pleural effusion which is new she received IV Lasix otherwise there is no fever or chills no headache or dizziness no chest pain no cough no nausea or vomiting no abdominal pain no diarrhea no urinary symptoms On 11/25/2019 patient was seen and examined on the medical floor she is alert and oriented, she is complaining of nausea otherwise she denies any complaints at this time, there is no fever or chills no headache or dizziness no chest pain no shortness of breath no cough, no vomiting no abdominal pain no diarrhea no blood in the stools no burning with urination no frequency or urgency and no hematuria. On 11/26/2019 patient was seen and examined on the medical floor she is feeling better nausea and abdominal discomfort has improved since yesterday, there is no fever or chills no headache or dizziness no chest pain no shortness of breath no cough no nausea or vomiting no abdominal pain no diarrhea no blood in the stools no burning was urination no frequency or urgency and no hematuria, INR is in the therapeutic range now and Lovenox was discontinued yesterday. Plan is to transfer to rehab tomorrow. On 11/27/2019 patient was seen and examined on the medical floor she is alert and oriented 3 in no apparent distress there is no fever or chills no headache or dizziness no chest pain no shortness of breath no cough no nausea or vomiting no abdominal pain no burning with urination no frequency or urgency no hematuria patient is stable to be transferred to rehab unit she would be continued on Flagyl for 7 more days. Will follow closely at [facility] Patient Condition at Discharge: Stable Plan - Discharge Summary Discharge Rx Participant: Yes New Discharge Prescriptions: New Carvedilol [Coreg] 6.25 mg PO BID 30 Days #60 tablet metroNIDAZOLE [Flagyl] 500 mg PO Q8HR tab Continue Pravastatin Sodium [Pravachol] 20 mg PO HS Furosemide [Lasix] 80 mg PO QAM Aspirin EC [Ecotrin Low Dose] 81 mg PO DAILY Amiodarone [Cordarone] 100 mg PO DAILY Pantoprazole [Protonix] 40 mg PO DAILY tablet. Docusate Sodium [Dok] 100 mg PO DAILY PRN PRN Reason: Constipation Acetaminophen Tab [Tylenol] 650 mg PO Q6HR PRN tab PRN Reason: Fever And/ Or Pain Warfarin Sodium [Coumadin] 5 mg PO MOTUWETHFRSA Spironolactone [Aldactone] 25 mg PO DAILY Discontinued Carvedilol [Coreg] 12.5 mg PO BID Lisinopril [Zestril] 10 mg PO DAILY Discharge Medication List Pravastatin Sodium [Pravachol] 20 mg PO HS 04/17/15 [History] Amiodarone [Cordarone] 100 mg PO DAILY 07/25/18 [History] Aspirin EC [Ecotrin Low Dose] 81 mg PO DAILY 07/25/18 [History] Furosemide [Lasix] 80 mg PO QAM 07/25/18 [History] Pantoprazole [Protonix] 40 mg PO DAILY tablet. 08/03/18 [Rx] Docusate Sodium [Dok] 100 mg PO DAILY PRN 03/28/19 [History] Acetaminophen Tab [Tylenol] 650 mg PO Q6HR PRN tab 04/04/19 [Rx] Spironolactone [Aldactone] 25 mg PO DAILY 11/18/19 [History] Warfarin Sodium [Coumadin] 5 mg PO MOTUWETHFRSA 11/18/19 [History] Carvedilol [Coreg] 6.25 mg PO BID 30 Days #60 tablet 11/27/19 [Rx] metroNIDAZOLE [Flagyl] 500 mg PO Q8HR tab 11/27/19 [Rx] Follow up Appointment(s)/Referral(s): Clayton Helton MD [STAFF PHYSICIAN] - 4 Weeks [facility], [NON-STAFF] - As Needed Sheila,Pauly, MD [Primary Care Provider] - 1-2 days Activity/Diet/Wound Care/Special Instructions: Home INR monitor ordered through [employer] (ph #[phone]) who will contact you to arrange delivery.
--- NOTE | 2019-11-27 13:24 | P.PN ---
Subjective Progress Note Date: 11/27/19 Principal diagnosis: lower GI bleeding, diverticulitis/colitis on 11/22/2019 patient seen in follow-up on selective care unit. She is awake and alert, in no acute distress. She is resting comfortably in bed, noncompressive shortness of breath, no chest pain. no further episodes of GI bleeding, today's hemoglobin is 9.9. patient's heparin drip has been reinitiated, and Coumadin has been restarted history of mechanical valve. Today's INR is 1.3. no nausea vomiting, no abdominal pain, patient is tolerating oral diet. On 11/27/2019 patient seen in follow-up on general medical floor. She is calm and comfortable, she is on room air, denies any shortness of breath, denies any chest pain, she is on Coumadin for history of mechanical aortic valve, and today's INR is 3.3. She's had no other acute events overnight. She is tolerating oral intake, no complaints of abdominal pain, no bleeding, today's hemoglobin is 10.0 Objective - Vital Signs Vital signs: Vital Signs Temp 98.4 F 11/27/19 07:10 Pulse 72 11/27/19 07:46 Resp 17 11/27/19 07:46 BP 146/82 11/27/19 07:10 Pulse Ox 98 11/27/19 07:10 Intake & Output 11/26/19 11/27/19 11/27/19 18:59 06:59 18:59 Intake Total 400 Balance 400 Intake: Oral 400 Other: Voiding Method Toilet Toilet Toilet # Voids 3 1 1 - Exam GENERAL EXAM: Alert, pleasant, 74-year-old white female on room air, with a pulse ox of 96%, comfortable in no apparent distress. HEAD: Normocephalic/atraumatic. EYES: Normal reaction of pupils, equal size. Conjunctiva pink, sclera white. NOSE: Clear with pink turbinates. THROAT: No erythema or exudates. NECK: No masses, no JVD, no thyroid enlargement, no adenopathy. CHEST: No chest wall deformity. Symmetrical expansion. LUNGS: Equal air entry with no crackles, wheeze, rhonchi or dullness. CVS: Regular rate and rhythm, normal S1 and S2, no gallops, no murmurs, no rubs ABDOMEN: Soft, nontender. No hepatosplenomegaly, normal bowel sounds, no guarding or rigidity. EXTREMITIES: No clubbing, no edema, no cyanosis, 2+ pulses and upper and lower extremities. MUSCULOSKELETAL: Muscle strength and tone normal. SPINE: No scoliosis or deformity SKIN: No rashes CENTRAL NERVOUS SYSTEM: Alert and oriented -3. No focal deficits, tone is normal in all 4 extremities. PSYCHIATRIC: Alert and oriented -3. Appropriate affect. Intact judgment and insight. - Labs CBC & Chem 7: 11/26/19 06:49 11/26/19 06:49 Labs: Abnormal Lab Results - Last 24 Hours (Table) 11/27/19 Range/Units 08:21 PT 32.3 H (9.0-12.0) sec INR 3.3 H (<1.2) Assessment and Plan Plan: Assessment: #1. Acute lower GI bleeding secondary to ischemic gastritis, EGD showed severe ischemic-appearing gastritis involving the proximal body and anti-her fundus of the stomach, there was mucosal erythema, friability, congestion and superficial ulceration and bluish discoloration of the mucosa. Patient has had no further bleeding, and today on 11/21/2019 she has been restarted on Coumadin and heparin drip. no surgical intervention is planned at this time #2. history of mechanical aortic valve #3. History of CVA/TIA #4. Acute colitis/diverticulitis #5. Acute on chronic kidney disease, related to hypovolemia and hypotension/ac [place] tubular necrosis, improving #6. Hypotension secondary to hypovolemia, not related to sepsis, improved with IV hydration Plan: Patient is doing well, no acute events overnight, no bleeding, today's hemoglobin is 10.0, hemodynamically stable, today's INR is 3.3, anticipate discharge to subacute rehab today I performed a history & physical examination of the patient and discussed their management with my nurse practitioner, Cecilia Gonzalez. I reviewed the nurse practitioner's note and agree with the documented findings and plan of care. Lung sounds are positive for clear breath sounds. The findings and the impression was discussed with the patient. I attest to the documentation by the nurse practitioner. Time with Patient: Less than 30
[2019-11-27] MEDS ORDERED: WARFARIN 2 MG TAB PO ONE (18:00)
== END 2019-11-27 14:43 | DRG 377 ==
LOC: EC 03:47 → 2SICU 04:36 → 3SCARD 11-21 07:51 → 4SSUR 11-22 18:23
PROVIDERS: ADMIT Internal Medicine; ATTEND Internal Medicine
PROC: 0DB68ZX Excision of Stomach, Via Natural or Artificial Opening Endoscopic, Diagnostic (ICD-10-PCS; principal; 2019-11-18)
PROC: 06HM33Z Insertion of Infusion Device into Right Femoral Vein, Percutaneous Approach (ICD-10-PCS; 2019-11-18)
DX: K29.01 Acute gastritis with bleeding (principal); N17.0 Acute kidney failure with tubular necrosis; I50.33 Acute on chronic diastolic (congestive) heart failure; I42.9 Cardiomyopathy, unspecified; I13.0 Hypertensive heart and chronic kidney disease with heart failure and stage 1 through stage 4 chronic kidney disease, or unspecified chronic kidney disease; I69.354 Hemiplegia and hemiparesis following cerebral infarction affecting left non-dominant side; D62 Acute posthemorrhagic anemia; K57.93 Diverticulitis of intestine, part unspecified, without perforation or abscess with bleeding; I27.21 Secondary pulmonary arterial hypertension; I95.89 Other hypotension; N18.3 Chronic kidney disease, stage 3 (moderate); I48.0 Paroxysmal atrial fibrillation; E21.3 Hyperparathyroidism, unspecified; K31.89 Other diseases of stomach and duodenum; Z20.828 Contact with and (suspected) exposure to other viral communicable diseases; E86.0 Dehydration; K52.9 Noninfective gastroenteritis and colitis, unspecified; R40.2362 Coma scale, best motor response, obeys commands, at arrival to emergency department; R40.2142 Coma scale, eyes open, spontaneous, at arrival to emergency department; R40.2252 Coma scale, best verbal response, oriented, at arrival to emergency department; E86.1 Hypovolemia; E78.00 Pure hypercholesterolemia, unspecified; G25.0 Essential tremor; I34.0 Nonrheumatic mitral (valve) insufficiency; I44.7 Left bundle-branch block, unspecified; E78.5 Hyperlipidemia, unspecified; R79.1 Abnormal coagulation profile; T45.515A Adverse effect of anticoagulants, initial encounter; M19.90 Unspecified osteoarthritis, unspecified site; Z79.82 Long term (current) use of aspirin; Z79.01 Long term (current) use of anticoagulants; Z79.899 Other long term (current) drug therapy; Z87.442 Personal history of urinary calculi; Z86.79 Personal history of other diseases of the circulatory system; Z98.890 Other specified postprocedural states; Z95.0 Presence of cardiac pacemaker; Z95.2 Presence of prosthetic heart valve; Z88.0 Allergy status to penicillin; Z88.8 Allergy status to other drugs, medicaments and biological substances; Z82.49 Family history of ischemic heart disease and other diseases of the circulatory system
CPT/HCPCS: 36415; 36556; 43239; 71045; 71046; 74176; 80048; 80053; 81001; 82272; 83605; 83735; 85025; 85027; 85610; 85730; 86850; 86900; 86901; 87040; 87635; 88305; 93005; 93306; 96365; 96367; 96375; 99291

== ENCOUNTER → 2020-09-10 | Outpatient (CLI) | payer MEDICARE, OTHER ==
--- NOTE | 2020-09-12 08:39 | MM ---
Reason for exam: screening (asymptomatic). Last mammogram was performed 2 years and 6 months ago. History: Patient is postmenopausal and is nulliparous. Physical Findings: A clinical breast exam by your physician is recommended on an annual basis and results should be correlated with mammographic findings. MG Screening Mammo w CAD Bilateral CC and MLO view(s) were taken. XCCL view(s) were taken of the left breast. Prior study comparison: March 10, 2018, bilateral MG screening mammo w CAD. August 06, 2016, bilateral MG screening mammo w CAD. There are scattered fibroglandular densities. There is chronic nodularity bilaterally. Focal asymmetry left CC lateral. No significant changes when compared with prior studies. ASSESSMENT: Benign, BI-RAD 2 RECOMMENDATION: Routine screening mammogram of both breasts in 1 year.
== END | disposition home or self-care (01) ==
LOC: RADMAMWWP 09:07
PROVIDERS: ATTEND Internal Medicine
DX: Z12.31 Encounter for screening mammogram for malignant neoplasm of breast (principal)
CPT/HCPCS: 77067

== ENCOUNTER 2021-07-13 09:08 | Inpatient (IN) | payer MEDICARE, OTHER ==
[2021-07-13] MEDS ORDERED: SODIUM CHLORIDE 0.9% 500 ML 500 ML IV ONE (09:15)
[2021-07-13 09:21] LABS: Glucose,Whole Blood 138 mg/dL (75-99)
[2021-07-13 09:32] LABS: ABG Base Excess 16.1 mmol/L; ABG Oxygen Saturation 99.8 % (94-97); ABG PH 7.27 (7.35-7.45); ABG PO2 258 mmHg (83-108); ABG TCO2 46 mmol/L (19-24); Allen Test Performed? Yes
[2021-07-13 09:32] LABS: Anisocytosis Slight; Basophils % (A) 0 %; Eosinophils # (A) 0.1 k/uL (0-0.7); Eosinophils % (A) 1 %; HCT 35.5 % (34.0-46.0); Hypochromasia Marked; Lymphocytes # (A) 0.3 k/uL (1.0-4.8); Lymphocytes % (A) 4 %; MCH 25.6 pg (25.0-35.0); MCHC 28.2 g/dL (31.0-37.0); MCV 90.9 fL (80.0-100.0); Mean Platelet Volume 8.1; Monocytes # (A) 0.4 k/uL (0-1.0); Monocytes % (A) 5 %; Neutrophils # (A) 7.1 k/uL (1.3-7.7); Neutrophils % (A) 89 %; Platelet Count 152 k/uL (150-450)
[2021-07-13 09:33] LABS: ABG PCO2 94 mmHg (35-45)
[2021-07-13 09:34] LABS: ABG HCO3 43 mmol/L (21-25)
[2021-07-13 09:38] LABS: Lactic Acid, Venous 0.8 mmol/L (0.7-2.0)
[2021-07-13 09:39] LABS: ALT 13 U/L (4-34); AST 28 U/L (14-36); African American GFR (CKD) 40 (>60 ml/min/1.73 sqM); Albumin 3.2 g/dL (3.5-5.0); Alcohol <10 mg/dL; Alkaline Phosphatase 78 U/L (38-126); Blood Urea Nitrogen 36 mg/dL (7-17); Calcium 11.4 mg/dL (8.4-10.2); Chloride 96 mmol/L (98-107); Glucose 134 mg/dL (74-99); Non-African American GFR(CKD) 34 (>60 ml/min/1.73 sqM); Potassium 4.7 mmol/L (3.5-5.1); Sodium 138 mmol/L (137-145); Total Bilirubin 1.7 mg/dL (0.2-1.3); Total Protein 7.3 g/dL (6.3-8.2)
[2021-07-13 09:46] LABS: Anion Gap 6 mmol/L
[2021-07-13 09:47] LABS: Carbon Dioxide 36 mmol/L (22-30)
--- NOTE | 2021-07-13 09:47 | ED ---
General Adult HPI - General Chief complaint: Altered Mental Status Stated complaint: unresponsive Time Seen by Provider: 07/13/21 09:14 Source: EMS, RN notes reviewed, old records reviewed Mode of arrival: EMS Limitations: altered mental status - History of Present Illness Initial comments: Patient is a 76-year-old female who presents from a nursing facility for altered mental status. She is mostly on oxygen at the nursing facility. Family last night, she was alert and oriented 3-4 to a baseline. She is a history of heart failure, aortic valve replacement, chronic hypoxic respiratory failure on 2 L nasal cannula, prior stroke with residual left-sided deficits who presents emergency Department. She was found unresponsive by staff at the facility. They called EMS who transferred her here. Upon arrival, staff found she was in the 70s or 60 percents at home for her oxygen levels. They placed her on nonrebreather and transferred her to the emergency department. Sugar is in normal limits. She has begun to awaken since being placed on oxygen. She is spontaneously opening her eyes, does appear confused but is attempting to respond to questions. She is moving all 4 extremities with weakness on the left side which is chronic. Patient presents for her altered mental status. History is limited secondary to her current clinical status. - Related Data Home Medications Medication Instructions Recorded Confirmed Pravastatin Sodium [Pravachol] 20 mg PO HS 04/17/15 11/18/19 Amiodarone [Cordarone] 100 mg PO DAILY 07/25/18 11/18/19 Aspirin EC [Ecotrin Low Dose] 81 mg PO DAILY 07/25/18 11/18/19 Furosemide [Lasix] 80 mg PO QAM 07/25/18 11/18/19 Docusate Sodium [Dok] 100 mg PO DAILY PRN 03/28/19 11/18/19 Spironolactone [Aldactone] 25 mg PO DAILY 11/18/19 11/18/19 Warfarin Sodium [Coumadin] 5 mg PO [id number] 11/18/19 11/18/19 Previous Rx's Medication Instructions Recorded Pantoprazole [Protonix] 40 mg PO DAILY tablet. 08/03/18 Acetaminophen Tab [Tylenol] 650 mg PO Q6HR PRN tab 04/04/19 Carvedilol [Coreg] 6.25 mg PO BID 30 Days #60 tablet 11/27/19 metroNIDAZOLE [Flagyl] 500 mg PO Q8HR tab 11/27/19 Allergies Allergy/AdvReac Type Severity Reaction Status Date / Time amoxicillin AdvReac Nausea & Verified 07/13/21 09:17 Vomiting & Diarrhea levofloxacin [From Levaquin] AdvReac Rash/Hives Verified 07/13/21 09:17 Penicillins AdvReac Nausea & Verified 07/13/21 09:17 Vomiting & Diarrhea vitamin K medications AdvReac Unknown Uncoded 07/13/21 09:17 Review of Systems ROS Statement: Those systems with pertinent positive or pertinent negative responses have been documented in the HPI. Difficult to obtain secondary to patient's current clinical status. ROS Other: All systems not noted in ROS Statement are negative. 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 Diverticulitis History of Any Multi-Drug Resistant Organisms: None Reported Past Surgical History: Back Surgery, Heart Catheterization, Pacemaker Additional Past Surgical History / Comment(s): 1998 aortic disection repair, three aneurysm ascending and descending aorta, aortic valve replace ment(MECHANICAL VALVE), CYST AT END OF SPINE REMOVED. CARDIAC CATHETERIZATION WHICH WAS NORMAL. biventricular pacer placed in 08/2014 - pacer is on right side of chest - physician unable to get into left Past Anesthesia/Blood Transfusion Reactions: No Reported Reaction Type of Cardiac Device: Biventricular Pacemaker Device Placement Date:: 08/2014 Past Psychological History: No Psychological Hx Reported Smoking Status: Unknown if ever smoked Past Alcohol Use History: None Reported Past Drug Use History: None Reported - Past Family History Father History Unknown: Yes Family Medical History: AFIB, Congestive Heart Failure (CHF) Additional Family Medical History / Comment(s): FATHER AT AGE 73 OF CHF. Mother History Unknown: Yes Additional Family Medical History / Comment(s): MOTHER AT AGE 78 OF SEPTIC SHOCK UNKNOWN SOURCE. General Exam - General Exam Comments Initial Comments: General: Appears in mild respiratory distress. HEAD: Normal with no signs of head trauma. EYES: PERRLA, EOMI, conjunctiva normal, no discharge. Pupils are 2 mm and equal bilaterally. ENT: Hearing grossly intact, normal oropharynx. RESPIRATORY: Relatively clear breath sounds bilaterally, however for effort. Difficult to rule out rales or rhonchi, however there are no obvious wounds. C/V: Regular rate and rhythm. S1 and S2 auscultated. Peripheral pulses are 2+ intact throughout. Patient does have lower extremity edema bilateral lower extremities. ABD: Abd is soft, nontender, nondistended EXT: Normal range of motion, no obvious deformity SKIN: Patient has a stage I ulcer looking over the left anterior colmenares. NEURO: Alert and oriented times one to 2 at this time. GCS is approximately 13- 14. She is chronic left-sided weakness. She is able to follow commands and spontaneously opens her eyes. She is confused, pink speak words in short sentences. She appears tired and lethargic. Limitations: altered mental status Course Vital Signs 07/13/21 09:10 Temperature 97.3 F L Pulse Rate 63 Respiratory 14 Rate Blood Pressure 126/65 O2 Sat by Pulse 100 Oximetry Procedures - ABG Interpretation Ph: 7.269 PCO2: 93 PO2: 258 Bicarbonate: 43 Interpretation: abnormal, respiratory acidosis Additional Comments: acute on chronic respiratory acidosis with hypercapneia Medical Decision Making - Medical Decision Making Based on the patient's presentation and physical exam, I'm concerned for possible heart failure exacerbation versus infectious etiology. She does have a history of heart failure and is chronically on oxygen. It is possible this may have came off overnight. She does seem to be improving at this time. Broad workup will be obtained as well as a CT brain, chest x-ray. ABG will be obtained. Patient's EKG shows no signs of acute ischemia. Chest x-ray does reveal bilateral interstitial edema likely secondary to heart failure exacerbation. Brain CT shows no signs of acute ischemia. Accu-Chek was within normal limits. Laboratory studies were remarkable for a hemoglobin of 10. Patient has a subtherapeutic INR and she is supposed be on Coumadin. Patient has an elevated carbon dioxide of 36. Patient has an elevated creatinine and BUN in the setting of CK D. Troponin is within normal limits at 0.032. BNP is elevated to 9500. Patient's Covid and flu negative. Lactic acid is within normal limits. Blood cultures are still pending at this time. ABG revealed a respiratory acidosis with pH of 7.27, hypercapnia with a CO2 of 94, and bicarb elevated to 43. This is likely acute on chronic. She is oxygenating well. She'll be started on BiPAP due to this hypercapnia. Goal SpO2 92%. Patient's mental status at this time is relatively unchanged, she remains a GCS of 13-14. I would like to admit to the hospital and she was in agreement this plan. I spoke with Dr. Sosa who accepted the admission. She will be admitted to stepdown telemetry. I spoke with the policy services representative on-call, Dr. Mac who evaluated the patient and was in agreement this plan. We will start the patient on a heparin drip to cover for her subtherapeutic INR in the setting of an aortic valve replacement. I also consulted cardiology to evaluate the patient for her heart failure exacerbation. She was started on every 8 hourly Lasix. Welch catheter will be placed. We will will resume home medications. Patient was in agreement this plan. - Lab Data Result diagrams: 07/13/21 09:20 07/13/21 09:20 Lab Results 07/13/21 07/13/21 07/13/21 Range/Units 09:20 09:20 09:20 WBC 8.0 (3.8-10.6) k/uL RBC 3.90 (3.80-5.40) m/uL Hgb 10.0 L (11.4-16.0) gm/dL Hct 35.5 (34.0-46.0) % MCV 90.9 (80.0-100.0) fL MCH 25.6 (25.0-35.0) pg MCHC 28.2 L (31.0-37.0) g/dL RDW 18.0 H (11.5-15.5) % Plt Count 152 (150-450) k/uL MPV 8.1 Neutrophils % 89 % Lymphocytes % 4 % Monocytes % 5 % Eosinophils % 1 % Basophils % 0 % Neutrophils # 7.1 (1.3-7.7) k/uL Lymphocytes # 0.3 L (1.0-4.8) k/uL Monocytes # 0.4 (0-1.0) k/uL Eosinophils # 0.1 (0-0.7) k/uL Basophils # 0.0 (0-0.2) k/uL Hypochromasia Marked Anisocytosis Slight PT 13.5 H (9.0-12.0) sec INR 1.3 H (<1.2) APTT 25.5 (22.0-30.0) sec Sample Site ABG pH (7.35-7.45) ABG pCO2 (35-45) mmHg ABG pO2 (83-108) mmHg ABG HCO3 (21-25) mmol/L ABG Total CO2 (19-24) mmol/L ABG O2 Saturation (94-97) % ABG Base Excess mmol/L Ambrose Test FiO2 % Sodium 138 (137-145) mmol/L Potassium 4.7 (3.5-5.1) mmol/L Chloride 96 L (98-107) mmol/L Carbon Dioxide 36 H (22-30) mmol/L Anion Gap 6 mmol/L BUN 36 H (7-17) mg/dL Creatinine 1.49 H (0.52-1.04) mg/dL Est GFR (CKD-EPI)AfAm 40 (>60 ml/min/1.73 sqM) Est GFR (CKD-EPI)NonAf 34 (>60 ml/min/1.73 sqM) Glucose 134 H (74-99) mg/dL POC Glucose (mg/dL) (75-99) mg/dL POC Glu Oil Derrick Operator ID Plasma Lactic Acid Jimy (0.7-2.0) mmol/L Calcium 11.4 H (8.4-10.2) mg/dL Total Bilirubin 1.7 H (0.2-1.3) mg/dL AST 28 (14-36) U/L ALT 13 (4-34) U/L Alkaline Phosphatase 78 (38-126) U/L Ammonia (<30) umol/L Troponin I (0.000-0.034) ng/mL NT-Pro-B Natriuret Pep pg/mL Total Protein 7.3 (6.3-8.2) g/dL Albumin 3.2 L (3.5-5.0) g/dL Serum Alcohol <10 mg/dL Coronavirus (PCR) (Not Detectd) Influenza Type A RNA (Not Detectd) Influenza Type B (PCR) (Not Detectd) 07/13/21 07/13/21 07/13/21 Range/Units 09:20 09:20 09:20 WBC (3.8-10.6) k/uL RBC (3.80-5.40) m/uL Hgb (11.4-16.0) gm/dL Hct (34.0-46.0) % MCV (80.0-100.0) fL MCH (25.0-35.0) pg MCHC (31.0-37.0) g/dL RDW (11.5-15.5) % Plt Count (150-450) k/uL MPV Neutrophils % % Lymphocytes % % Monocytes % % Eosinophils % % Basophils % % Neutrophils # (1.3-7.7) k/uL Lymphocytes # (1.0-4.8) k/uL Monocytes # (0-1.0) k/uL Eosinophils # (0-0.7) k/uL Basophils # (0-0.2) k/uL Hypochromasia Anisocytosis PT (9.0-12.0) sec INR (<1.2) APTT (22.0-30.0) sec Sample Site ABG pH (7.35-7.45) ABG pCO2 (35-45) mmHg ABG pO2 (83-108) mmHg ABG HCO3 (21-25) mmol/L ABG Total CO2 (19-24) mmol/L ABG O2 Saturation (94-97) % ABG Base Excess mmol/L Abmrose Test FiO2 % Sodium (137-145) mmol/L Potassium (3.5-5.1) mmol/L Chloride (98-107) mmol/L Carbon Dioxide (22-30) mmol/L Anion Gap mmol/L BUN (7-17) mg/dL Creatinine (0.52-1.04) mg/dL Est GFR (CKD-EPI)AfAm (>60 ml/min/1.73 sqM) Est GFR (CKD-EPI)NonAf (>60 ml/min/1.73 sqM) Glucose (74-99) mg/dL POC Glucose (mg/dL) (75-99) mg/dL POC Glu Oil Derrick Operator ID Plasma Lactic Acid Jimy 0.8 (0.7-2.0) mmol/L Calcium (8.4-10.2) mg/dL Total Bilirubin (0.2-1.3) mg/dL AST (14-36) U/L ALT (4-34) U/L Alkaline Phosphatase (38-126) U/L Ammonia <9 (<30) umol/L Troponin I 0.032 (0.000-0.034) ng/mL NT-Pro-B Natriuret Pep 9540 pg/mL Total Protein (6.3-8.2) g/dL Albumin (3.5-5.0) g/dL Serum Alcohol mg/dL Coronavirus (PCR) (Not Detectd) Influenza Type A RNA (Not Detectd) Influenza Type B (PCR) (Not Detectd) 07/13/21 07/13/21 07/13/21 Range/Units 09:20 09:28 09:29 WBC (3.8-10.6) k/uL RBC (3.80-5.40) m/uL Hgb (11.4-16.0) gm/dL Hct (34.0-46.0) % MCV (80.0-100.0) fL MCH (25.0-35.0) pg MCHC (31.0-37.0) g/dL RDW (11.5-15.5) % Plt Count (150-450) k/uL MPV Neutrophils % % Lymphocytes % % Monocytes % % Eosinophils % % Basophils % % Neutrophils # (1.3-7.7) k/uL Lymphocytes # (1.0-4.8) k/uL Monocytes # (0-1.0) k/uL Eosinophils # (0-0.7) k/uL Basophils # (0-0.2) k/uL Hypochromasia Anisocytosis PT (9.0-12.0) sec INR (<1.2) APTT (22.0-30.0) sec Sample Site r rad ABG pH 7.27 L (7.35-7.45) ABG pCO2 94 H* (35-45) mmHg ABG pO2 258 H (83-108) mmHg ABG HCO3 43 H* (21-25) mmol/L ABG Total CO2 46 H (19-24) mmol/L ABG O2 Saturation 99.8 H (94-97) % ABG Base Excess 16.1 mmol/L Ambrose Test Yes FiO2 100 % Sodium (137-145) mmol/L Potassium (3.5-5.1) mmol/L Chloride (98-107) mmol/L Carbon Dioxide (22-30) mmol/L Anion Gap mmol/L BUN (7-17) mg/dL Creatinine (0.52-1.04) mg/dL Est GFR (CKD-EPI)AfAm (>60 ml/min/1.73 sqM) Est GFR (CKD-EPI)NonAf (>60 ml/min/1.73 sqM) Glucose (74-99) mg/dL POC Glucose (mg/dL) 138 H (75-99) mg/dL POC Glu Oil Derrick Operator ID Ben Cedeno Plasma Lactic Acid Jimy (0.7-2.0) mmol/L Calcium (8.4-10.2) mg/dL Total Bilirubin (0.2-1.3) mg/dL AST (14-36) U/L ALT (4-34) U/L Alkaline Phosphatase (38-126) U/L Ammonia (<30) umol/L Troponin I (0.000-0.034) ng/mL NT-Pro-B Natriuret Pep pg/mL Total Protein (6.3-8.2) g/dL Albumin (3.5-5.0) g/dL Serum Alcohol mg/dL Coronavirus (PCR) (Not Detectd) Influenza Type A RNA Not Detected (Not Detectd) Influenza Type B (PCR) Not Detected (Not Detectd) 07/13/21 Range/Units 09:29 WBC (3.8-10.6) k/uL RBC (3.80-5.40) m/uL Hgb (11.4-16.0) gm/dL Hct (34.0-46.0) % MCV (80.0-100.0) fL MCH (25.0-35.0) pg MCHC (31.0-37.0) g/dL RDW (11.5-15.5) % Plt Count (150-450) k/uL MPV Neutrophils % % Lymphocytes % % Monocytes % % Eosinophils % % Basophils % % Neutrophils # (1.3-7.7) k/uL Lymphocytes # (1.0-4.8) k/uL Monocytes # (0-1.0) k/uL Eosinophils # (0-0.7) k/uL Basophils # (0-0.2) k/uL Hypochromasia Anisocytosis PT (9.0-12.0) sec INR (<1.2) APTT (22.0-30.0) sec Sample Site ABG pH (7.35-7.45) ABG pCO2 (35-45) mmHg ABG pO2 (83-108) mmHg ABG HCO3 (21-25) mmol/L ABG Total CO2 (19-24) mmol/L ABG O2 Saturation (94-97) % ABG Base Excess mmol/L Ambrose Test FiO2 % Sodium (137-145) mmol/L Potassium (3.5-5.1) mmol/L Chloride (98-107) mmol/L Carbon Dioxide (22-30) mmol/L Anion Gap mmol/L BUN (7-17) mg/dL Creatinine (0.52-1.04) mg/dL Est GFR (CKD-EPI)AfAm (>60 ml/min/1.73 sqM) Est GFR (CKD-EPI)NonAf (>60 ml/min/1.73 sqM) Glucose (74-99) mg/dL POC Glucose (mg/dL) (75-99) mg/dL POC Glu Oil Derrick Operator ID Plasma Lactic Acid Jimy (0.7-2.0) mmol/L Calcium (8.4-10.2) mg/dL Total Bilirubin (0.2-1.3) mg/dL AST (14-36) U/L ALT (4-34) U/L Alkaline Phosphatase (38-126) U/L Ammonia (<30) umol/L Troponin I (0.000-0.034) ng/mL NT-Pro-B Natriuret Pep pg/mL Total Protein (6.3-8.2) g/dL Albumin (3.5-5.0) g/dL Serum Alcohol mg/dL Coronavirus (PCR) Not Detected (Not Detectd) Influenza Type A RNA (Not Detectd) Influenza Type B (PCR) (Not Detectd) - EKG Data -: EKG Interpreted by Me EKG Comments: 12-lead Electrocardiogram Interpretation Note EKG was reviewed and interpreted by myself. 12-lead ECG performed at 1021 is interpreted by me as revealing and appears to be a paced rhythm with chronic left bundle branch block at a rate of 60 beats per minute. Left axis deviation. MI interval is 150 ms, QRS duration is 236 ms, QTc is 552 ms.. Chronic left bundle branch block from paced rhythm.. R wave progression across the precordium was satisfactory. By my interpretation this EKG is non-diagnostic for acute ischemia. Critical Care Time Critical Care Time: Yes Total Critical Care Time: 35 Critical Care Time: Upon my evaluation, this patient had a high probability of imminent or life- threatening deterioration due to altered mental status, acute on chronic hypoxic respiratory failure, acute hypercapnic respiratory failure, CHF exacerbation, which required my direct attention, intervention, and personal management. I have personally provided 35 minutes of critical care time exclusive of time spent on separately billable procedures. Time includes review of laboratory da ta, radiology results, discussion with consultants, and monitoring for potential decompensation. Interventions were performed as documented in my note. Disposition Clinical Impression: Acute and chronic respiratory failure, Acute on chronic respiratory failure with hypoxia and hypercapnia, Subtherapeutic international normalized ratio (INR), CHF exacerbation, AMS (altered mental status), CKD (chronic kidney disease) Disposition: ADMITTED IP TO THIS HOSP Condition: Serious
[2021-07-13 10:03] LABS: INR 1.3 (<1.2); Partial Thromboplastin Time 25.5 sec (22.0-30.0); Prothrombin Time 13.5 sec (9.0-12.0)
--- NOTE | 2021-07-13 10:30 | CT ---
EXAMINATION TYPE: CT brain wo con DATE OF EXAM: 07/13/2021 COMPARISON: None HISTORY: Altered mental status CT DLP: 1233.4 mGycm Automated exposure control for dose reduction was used. FINDINGS: Mild to moderate generalized degenerative change with low attenuation in the white matter. No midline shift or mass effect. Calvarium intact. Nasal septal deviation noted with chronic sinusitis. Orbits symmetric. IMPRESSION: DEGENERATIVE AND NONSPECIFIC WHITE MATTER CHANGE WITH NO EVIDENCE OF ACUTE HEMORRHAGE OR MASS EFFECT.
[2021-07-13] MEDS ORDERED: FUROSEMIDE 10 MG/ML 4 ML VIAL IV STA (10:32)
--- NOTE | 2021-07-13 10:39 | XR ---
EXAMINATION TYPE: XR chest 1V portable DATE OF EXAM: 07/13/2021 COMPARISON: 11/24/2019 HISTORY: Shortness of breath TECHNIQUE: Single frontal view of the chest is obtained. FINDINGS: Large pulmonary arteries with cardiomegaly and postoperative change and cardiac device. Di ffuse interstitial pattern with bilateral infiltrate and small effusion. IMPRESSION: Suspect CHF favored over diffuse pneumonia. Correlate for pulmonary arterial hypertensio n.
[2021-07-13] MEDS ORDERED: NALOXONE 0.4 MG/ML 1 ML VIAL IV PRN (10:44)
[2021-07-13] MEDS ORDERED: HEPARIN SODIUM 1,000 UN/ML (10ML VL) IV ONE (10:48)
[2021-07-13] MEDS ORDERED: HEPARIN SODIUM 1,000 UN/ML (10ML VL) IV PRN (10:48)
[2021-07-13] MEDS: ASPIRIN 81 MG PO SCH (11:15)
[2021-07-13] MEDS: HEPARIN SOD,PORK IN 0.45% NACL 25,000 UNIT in 0.45% NACL 1 250ML.BAG IV SCH (11:16)
--- NOTE | 2021-07-13 11:28 | P.HPIM ---
History of Present Illness H&P Date: 07/13/21 Chief Complaint: altered Mental status changes This is a 76-year-old female patient who was sent from [facility] facility with concerns of altered mental status changes. Patient has a past medical history of CHF with recent hospital admission for CHF, aortic valve replacement, chronic hypoxic respiratory failure maintained on 2 L nasal cannula and left-sided stroke. Patient was found lethargic by facility when EMS arrived patient was found to be in the 70s and 60s with pulse ox. Patient was transferred to the ER and oxygen was placed and patient began to wake up. Head CT was completed showing degenerative and nonspecific white matter change with no evidence of acute hemorrhage or mass effect. Chest x-ray performed showing suspect CHF favored over diffuse pneumonia correlate for pulmonary arterial hypertension. COVID-19 negative. ABGs performed showing a pH of 7.27, pCO2 of 94, pO2 of 258 and HCO3 level 43. . BNP elevated at 9540. INR subtherapeutic at 1.3 started on heparin gtt patient started on IV Lasix. Pulmonary service is consulted. Cardiology services consulted. 2-D echo has been ordered repeat chest x-ray ordered. Patient started on BiPAP. Patient currently resting in bed does wake up to name. Review of Systems Please refer to HPI otherwise unremarkable Past Medical History Past Medical History: Atrial Fibrillation, Heart Failure, CVA/TIA, Hyperlipidemia, Hypertension, Memory Impairment Additional Past Medical History / Comment(s): essential tremor, PAST HX AFIB BUT WAS CARDIOVERTED, KIDNEY STONE,ARTHRITIS,abdominal aortic dissection and repair WITH CVA POST OP WHICH HAS AFFECTED MEMORY SLIGHTLY and left patient with residual slight left sided weakness, chronic anemia, thoracic and abdominal aortic aneurysm, hypercalcemia and hyperparathyroidism WHICH SHE CURRENTLY TEST NORMAL FOR. Diverticulitis History of Any Multi-Drug Resistant Organisms: None Reported Past Surgical History: Back Surgery, Heart Catheterization, Pacemaker Additional Past Surgical History / Comment(s): 1998 aortic disection repair, three aneurysm ascending and descending aorta, aortic valve replacement(MECHANICAL VALVE), CYST AT END OF SPINE REMOVED. CARDIAC CATHETERIZATION WHICH WAS NORMAL. biventricular pacer placed in 08/2014 - pacer is on right side of chest - physician unable to get into left Past Anesthesia/Blood Transfusion Reactions: No Reported Reaction Type of Cardiac Device: Biventricular Pacemaker Device Placement Date:: 08/2014 Past Psychological History: No Psychological Hx Reported Smoking Status: Unknown if ever smoked Past Alcohol Use History: None Reported Past Drug Use History: None Reported - Past Family History Father History Unknown: Yes Family Medical History: AFIB, Congestive Heart Failure (CHF) Additional Family Medical History / Comment(s): FATHER AT AGE 73 OF CHF. Mother History Unknown: Yes Additional Family Medical History / Comment(s): MOTHER AT AGE 78 OF SEPTIC SHOCK UNKNOWN SOURCE. Medications and Allergies Home Medications Medication Instructions Recorded Confirmed Type Pravastatin Sodium [Pravachol] 20 mg PO HS 04/17/15 11/18/19 History Amiodarone [Cordarone] 100 mg PO DAILY 07/25/18 11/18/19 History Aspirin EC [Ecotrin Low Dose] 81 mg PO DAILY 07/25/18 11/18/19 History Furosemide [Lasix] 80 mg PO QAM 07/25/18 11/18/19 History Pantoprazole [Protonix] 40 mg PO DAILY tablet. 08/03/18 11/18/19 Rx Docusate Sodium [Dok] 100 mg PO DAILY PRN 03/28/19 11/18/19 History Acetaminophen Tab [Tylenol] 650 mg PO Q6HR PRN tab 04/04/19 11/18/19 Rx Spironolactone [Aldactone] 25 mg PO DAILY 11/18/19 11/18/19 History Warfarin Sodium [Coumadin] 5 mg PO [id number] 11/18/19 11/18/19 History Carvedilol [Coreg] 6.25 mg PO BID 30 Days #60 tablet 11/27/19 Rx metroNIDAZOLE [Flagyl] 500 mg PO Q8HR tab 11/27/19 Rx Allergies Allergy/AdvReac Type Severity Reaction Status Date / Time amoxicillin AdvReac Nausea & Verified 07/13/21 09:17 Vomiting & Diarrhea levofloxacin [From Levaquin] AdvReac Rash/Hives Verified 07/13/21 09:17 Penicillins AdvReac Nausea & Verified 07/13/21 09:17 Vomiting & Diarrhea vitamin K medications AdvReac Unknown Uncoded 07/13/21 09:17 Physical Exam Vitals: Vital Signs Temp Pulse Resp BP Pulse Ox 07/13/21 09:10 97.3 F L 63 14 126/65 100 Intake and Output 07/12/21 07/13/21 07/13/21 22:59 06:59 14:59 Other: Weight 100.698 kg Head normocephalic Neck supple Lungs diminished bilaterally Heart regular rate and rhythm S1-S2, no rub or gallop Abdomen is soft nontender nondistended positive bowel sounds no hepatosplenomegaly Extremities no edema Neuro lethargic Results CBC & Chem 7: 07/13/21 09:20 07/13/21 09:20 Labs: Abnormal Lab Results - Last 24 Hours (Table) 07/13/21 07/13/21 07/13/21 Range/Units 09:20 09:20 09:20 Hgb 10.0 L (11.4-16.0) gm/dL MCHC 28.2 L (31.0-37.0) g/dL RDW 18.0 H (11.5-15.5) % Lymphocytes # 0.3 L (1.0-4.8) k/uL PT 13.5 H (9.0-12.0) sec INR 1.3 H (<1.2) ABG pH (7.35-7.45) ABG pCO2 (35-45) mmHg ABG pO2 (83-108) mmHg ABG HCO3 (21-25) mmol/L ABG Total CO2 (19-24) mmol/L ABG O2 Saturation (94-97) % Chloride 96 L (98-107) mmol/L Carbon Dioxide 36 H (22-30) mmol/L BUN 36 H (7-17) mg/dL Creatinine 1.49 H (0.52-1.04) mg/dL Glucose 134 H (74-99) mg/dL POC Glucose (mg/dL) (75-99) mg/dL Calcium 11.4 H (8.4-10.2) mg/dL Total Bilirubin 1.7 H (0.2-1.3) mg/dL Albumin 3.2 L (3.5-5.0) g/dL 07/13/21 07/13/21 Range/Units 09: 09:28 Hgb (11.4-16.0) gm/dL MCHC (31.0-37.0) g/dL RDW (11.5-15.5) % Lymphocytes # (1.0-4.8) k/uL PT (9.0-12.0) sec INR (<1.2) ABG pH 7.27 L (7.35-7.45) ABG pCO2 94 H* (35-45) mmHg ABG pO2 258 H (83-108) mmHg ABG HCO3 43 H* (21-25) mmol/L ABG Total CO2 46 H (19-24) mmol/L ABG O2 Saturation 99.8 H (94-97) % Chloride (98-107) mmol/L Carbon Dioxide (22-30) mmol/L BUN (7-17) mg/dL Creatinine (0.52-1.04) mg/dL Glucose (74-99) mg/dL POC Glucose (mg/dL) 138 H (75-99) mg/dL Calcium (8.4-10.2) mg/dL Total Bilirubin (0.2-1.3) mg/dL Albumin (3.5-5.0) g/dL Assessment and Plan Assessment: Altered mental status changes. Head CT negative acute on chronic respiratory failure acute on chronic CHF exacerbation. History of CHF with cardiomyopathy History mechanical aortic valve replacement maintained on Coumadin INR subtherapetic History of atrial fibrillation History of stroke History of chronic kidney disease Previous history of GI bleed DVT prophylaxis heparin drip Cardiology and pulmonary service is consulted Repeat labs ordered Patient started on IV antibiotics started on IV lasix Repeat chest x-ray ordered 2decho ordered Time with Patient: Greater than 30 (Greater than 60% of the total time spent in counseling and coordination of care)
[2021-07-13 11:51] LABS: Appearance,Urine Clear (Clear); Bacteria,Urine Rare /hpf; Bilirubin,Urine Negative (Negative); Blood,Urine Small (Negative); Color,Urine Yellow; Glucose,Urine (UA) Negative (Negative); Hyaline Casts,Urine 16 /lpf (0-2); Ketones,Urine Negative (Negative); Leukocyte Esterase,Urine Negative (Negative); Mucus,Urine Rare /hpf; Nitrite,Urine Negative (Negative); PH, Urine 5.5 (5.0-8.0); Protein,Urine Trace (Negative); RBC,Urine 23 /hpf (0-5); Specific Gravity,Urine 1.013 (1.001-1.035); Squamous Epithelial Cell,Urine <1 /hpf (0-4); WBC,Urine 4 /hpf (0-5)
[2021-07-13 12:08] LABS: Amphetamine Screen,Urine Not Detected (NotDetected); Barbiturate Screen,Urine Not Detected (NotDetected); Benzodiazepines Screen,Urine Not Detected (NotDetected); Cocaine Screen,Urine Not Detected (NotDetected); Methadone Screen, Urine Not Detected (NotDetected); Opiate Screen,Urine Not Detected (NotDetected); Oxycodone Screen, Urine Not Detected (NotDetected); Phencyclidine Screen,Urine Not Detected (NotDetected); Tricyclic Antidepressant,Urine Not Detected (NotDetected); Urn Cannabinoid Scrn Not Detected (NotDetected)
[2021-07-13] MEDS: FUROSEMIDE 10 MG/ML 4 ML VIAL IV SCH (20:42)
[2021-07-13] MEDS: carvediloL 6.25 MG TAB PO SCH (20:43)
[2021-07-14] MEDS: FUROSEMIDE 10 MG/ML 4 ML VIAL IV SCH ×5 (04:12→22:34)
[2021-07-14] MEDS ORDERED: IPRATROPIUM-ALBUTEROL 3 ML NEB INHALATION PRN (06:21)
--- NOTE | 2021-07-14 07:35 | XR ---
EXAMINATION TYPE: XR chest 1V portable DATE OF EXAM: 07/14/2021 CLINICAL HISTORY: Difficulty breathing progress study. TECHNIQUE: Single AP portable upright view of the chest is obtained. COMPARISON: Chest x-ray from one day earlier and older studies. FINDINGS: Persistent cardiomegaly with dual lead pacemaker. Overlying sternal wires and mediastinal clips redemonstrated. Chronic parenchymal changes with small bilateral pleural effusions and mild to moderate interstitial edema redemonstrated. Osseous structures are demineralized. Old healed fracture left proximal femur is redemonstrated. IMPRESSION: Findings consistent with CHF exacerbation as there is cardiomegaly with small bilateral p leural effusions and mild to moderate bilateral interstitial edema on background chronic changes. No significant change from one day earlier.
--- NOTE | 2021-07-14 08:13 | P.CRDCN ---
History of Present Illness Consult date: 07/14/21 Consult reason: shortness of breath Chief complaint: Shortness of breath and leg edema History of present illness: 76-year-old lady with history of mechanical aortic valve replacement chronic diastolic heart failure hypertension and dyslipidemia comes to Hospital from a retirement with symptoms of shortness of breath and leg edema. She does not have any chest pain. She has been becoming progressively short of breath over the last several days. She has mild edema bilaterally. She does not have any focal neurological deficits. She is on Coumadin but INR is subtherapeutic on her presentation She is currently in IV heparin. No significant elevation in cardiac enzymes. EKG shows paced rhythm Patient has a history of chronic aortic dissection BNP is elevated Chest x-ray shows cardiomegaly and changes consistent with congestive heart failure Patient's clinical presentation is consistent with acute exacerbation of chronic diastolic heart failure I will treat the patient with intravenous diuretics and adjust the therapies as needed Review of Systems Constitutional: Denies chills. Denies fever. Eyes: Denies blurred vision. Denies pain. Ears, nose, mouth and throat: Denies headache. Denies sore throat. Cardiovascular: Denies chest pain. Significant for shortness of breath Respiratory: Denies cough. Gastrointestinal: Denies abdominal pain. Denies diarrhea. Denies nausea. Denies vomiting. Musculoskeletal: Denies myalgias. Significant for leg edema Integumentary: Denies pruritus. Denies rash. Neurological: Denies numbness. Denies weakness. Psychiatric: Denies anxiety. Denies depression. Endocrine: Denies fatigue. Denies weight change. Genitourinary: Denies burning, hematuria, frequency of urination. Hematological: No anemia or excess bleeding. Past Medical History Past Medical History: Atrial Fibrillation, Heart Failure, CVA/TIA, Hyperlipidemia, Hypertension, Memory Impairment, Vascular Disorder Additional Past Medical History / Comment(s): essential tremor, PAST HX AFIB BUT WAS CARDIOVERTED, KIDNEY STONE,ARTHRITIS,abdominal aortic dissection and repair WITH CVA POST OP WHICH HAS AFFECTED MEMORY SLIGHTLY and left patient with residual slight left sided weakness, chronic anemia, thoracic and abdominal aortic aneurysm, hypercalcemia and hyperparathyroidism WHICH SHE CURRENTLY TEST NORMAL FOR. Diverticulitis History of Any Multi-Drug Resistant Organisms: None Reported Past Surgical History: Back Surgery, Heart Catheterization, Pacemaker Additional Past Surgical History / Comment(s): 1998 aortic disection repair, three aneurysm ascending and descending aorta, aortic valve replacement(MECHANICAL VALVE), CYST AT END OF SPINE REMOVED. CARDIAC CATHETERIZATION WHICH WAS NORMAL. biventricular pacer placed in 08/2014 - pacer is on right side of chest - physician unable to get into left Past Anesthesia/Blood Transfusion Reactions: No Reported Reaction Type of Cardiac Device: Biventricular Pacemaker Device Placement Date:: 08/2014 Past Psychological History: No Psychological Hx Reported Smoking Status: Unknown if ever smoked Past Alcohol Use History: None Reported Past Drug Use History: None Reported - Past Family History Father History Unknown: Yes Family Medical History: AFIB, Congestive Heart Failure (CHF) Additional Family Medical History / Comment(s): FATHER AT AGE 73 OF CHF. Mother History Unknown: Yes Additional Family Medical History / Comment(s): MOTHER AT AGE 78 OF SEPTIC SHOCK UNKNOWN SOURCE. Medications and Allergies Home Medications Medication Instructions Recorded Confirmed Type Spironolactone [Aldactone] 25 mg PO DAILY 11/18/19 07/13/21 History ALPRAZolam [Xanax] 0.25 mg PO Q6H PRN 07/13/21 07/13/21 History Aspirin 81 mg PO DAILY 07/13/21 07/13/21 History Carvedilol [Coreg] 18.75 mg PO BID 07/13/21 07/13/21 History Famotidine 20 mg PO DAILY 07/13/21 07/13/21 History Furosemide [Lasix] 40 mg PO BID 07/13/21 07/13/21 History Warfarin [Coumadin] 2 mg PO HS 07/13/21 07/13/21 History Allergies Allergy/AdvReac Type Severity Reaction Status Date / Time amoxicillin AdvReac Nausea & Verified 07/13/21 12:28 Vomiting & Diarrhea levofloxacin [From Levaquin] AdvReac Rash/Hives Verified 07/13/21 12:28 Penicillins AdvReac Nausea & Verified 07/13/21 12:28 Vomiting & Diarrhea vitamin K2 AdvReac Unknown Verified 07/13/21 12:28 vitamin K medications AdvReac Unknown Uncoded 07/13/21 12:28 Physical Exam Vitals: Vital Signs Temp Pulse Resp BP Pulse Ox 07/14/21 06:00 60 26 H 153/56 96 07/14/21 02:00 60 18 131/52 95 07/14/21 01:00 60 18 117/41 96 07/14/21 00:00 60 18 122/48 95 07/13/21 23:00 60 18 109/40 94 L 07/13/21 22:00 60 18 97 07/13/21 21:00 60 18 100 07/13/21 20:00 60 18 127/50 100 07/13/21 19:00 60 18 125/47 100 07/13/21 18:00 60 18 119/45 100 07/13/21 17:00 60 18 129/51 99 07/13/21 16:00 60 18 126/49 100 07/13/21 15:00 60 18 108/45 100 07/13/21 14:48 100 07/13/21 14:30 60 18 140/55 100 07/13/21 14:00 60 16 133/68 96 07/13/21 13:30 60 16 131/52 96 07/13/21 12:30 97.3 F L 60 15 126/51 95 07/13/21 12:00 60 15 145/61 98 07/13/21 11:24 95.7 F L 60 18 138/63 93 L 07/13/21 09:10 97.3 F L 63 14 126/65 100 Intake and Output 07/13/21 07/14/21 07/14/21 22:59 06:59 14:59 Intake Total 136.281 Output Total 1999 Balance -1863.719 Intake: Intake, IV Titration 136.281 Amount Heparin Sod,Pork in 0.45% 136.281 NaCl 25,000 unit In 0.45 % NaCl 1 250ml.bag @ 10 UNITS/KG/HR 10.07 mls/hr IV .Q24H [facility] Rx#: [id number] Output: Urine 1999 General: The patient is awake and alert, in no distress, and does not appear acutely ill. Skin: Skin is warm and dry and no rashes or lesions are noted. Eye: Pupils are equal, round and reactive to light, extra-ocular movements are intact; there is normal conjunctiva bilaterally. Ears, nose, mouth and throat: There are moist mucous membranes and no oral lesions. Neck: The neck is supple, there is no tenderness or JVD. Cardiovascular: Irregular[ crisp mechanical heart valve sound is heard] Respiratory: Lungs are clear to auscultation, respirations are non-labored, breath sounds are equal. Gastrointestinal: Soft, non-distended, non-tender abdomen without masses or organomegaly noted. There is no rebound or guarding present. Bowel sounds are unremarkable. Back: There is no tenderness to palpation in the midline. There is no obvious deformity. Musculoskeletal: Normal ROM, no tenderness, There is no pedal edema. There is no calf tenderness or swelling. Extremities:[ Bilateral mild leg edema with chronic stasis changes] Vascular: [Femoral pulse is normal.][ Posterior tibial pulses are normal .][Rosendo salis pedis is palpable.] Neurological: CN II-XII intact. There are no obvious motor or sensory deficits. Speech is normal. Psychiatric: Cooperative, appropriate mood & affect, normal judgment. Results 07/13/21 09:20 07/13/21 09:20 Cardiac Enzymes 07/13/21 07/13/21 07/13/21 Range/Units 09:20 09:20 12:19 AST 28 (14-36) U/L Troponin I 0.032 0.031 (0.000-0.034) ng/mL 07/13/21 Range/Units 17:00 AST (14-36) U/L Troponin I 0.031 (0.000-0.034) ng/mL Coagulation 07/13/21 07/13/21 Range/Units 09:20 23:25 PT 13.5 H (9.0-12.0) sec APTT 25.5 80.8 H (22.0-30.0) sec CBC 07/13/21 Range/Units 09:20 WBC 8.0 (3.8-10.6) k/uL RBC 3.90 (3.80-5.40) m/uL Hgb 10.0 L (11.4-16.0) gm/dL Hct 35.5 (34.0-46.0) % Plt Count 152 (150-450) k/uL Comprehensive Metabolic Panel 07/13/21 Range/Units 09:20 Sodium 138 (137-145) mmol/L Potassium 4.7 (3.5-5.1) mmol/L Chloride 96 L (98-107) mmol/L Carbon Dioxide 36 H (22-30) mmol/L BUN 36 H (7-17) mg/dL Creatinine 1.49 H (0.52-1.04) mg/dL Glucose 134 H (74-99) mg/dL Calcium 11.4 H (8.4-10.2) mg/dL AST 28 (14-36) U/L ALT 13 (4-34) U/L Alkaline Phosphatase 78 (38-126) U/L Total Protein 7.3 (6.3-8.2) g/dL Albumin 3.2 L (3.5-5.0) g/dL Current Medications Generic Name Dose Route Start Last Admin Trade Name Freq PRN Reason Stop Dose Admin Albuterol/Ipratropium 3 ml 07/14/21 06:21 Ipratropium-Albuterol 3 Ml Neb INHALATION RT-QID PRN Shortness Of Breath Or Wheezing Amiodarone HCl 100 mg 07/14/21 09:00 Amiodarone 100 Mg Tab PO DAILY NJ Aspirin 81 mg 07/13/21 11:00 07/13/21 11:15 Aspirin 81 Mg PO 81 mg DAILY NJ Administration Carvedilol 6.25 mg 07/13/21 17:30 07/13/21 20:43 Carvedilol 6.25 Mg Tab PO 6.25 mg AC-BID NJ Administration Furosemide 40 mg 07/13/21 19:00 07/14/21 04:12 Furosemide 10 Mg/Ml 4 Ml Vial IV 40 mg Q8H NJ Administration Heparin Sodium (Porcine) 0 unit 07/13/21 10:48 Heparin Sodium 1,000 Un/Ml (10ml Vl) IV PER PROTOCOL PRN Low PTT Protocol Heparin Sodium/Sodium Chloride 250 mls @ 10.07 mls/hr 07/13/21 11:00 07/14/21 00:48 25,000 unit/ Sodium Chloride IV 8 units/kg/hr .Q24H NJ 8.056 mls/hr Titration Protocol 10 UNITS/KG/HR Naloxone HCl 0.2 mg 07/13/21 10:44 Naloxone 0.4 Mg/Ml 1 Ml Vial IV Q2M PRN Opioid Reversal Pantoprazole Sodium 40 mg 07/14/21 09:00 Pantoprazole 40 Mg Tablet PO DAILY NJ Intake and Output 07/13/21 07/14/21 07/14/21 22:59 06:59 14:59 Intake Total 136.281 Output Total 1999 Balance -8479.442 Intake: Intake, IV Titration 136.281 Amount Heparin Sod,Pork in 0.45% 136.281 NaCl 25,000 unit In 0.45 % NaCl 1 250ml.bag @ 10 UNITS/KG/HR 10.07 mls/hr IV .Q24H [facility] Rx#: [id number] Output: Urine 199907/13/21 09:20 07/13/21 09:20 EKG Interpretations (text) EKG shows paced rhythm Assessment and Plan Assessment: Acute exacerbation of chronic diastolic heart failure Status post aortic valve replacement 6 sinus syndrome status post permanent pacemaker History of permanent atrial fibrillation Subtherapeutic anticoagulation for mechanical valve Plan: We will obtain a 2-D echo Treat the patient with intravenous diuretics IV heparin until INR becomes therapeutic Will obtain a set of blood cultures because of mechanical aortic valve and the heart failure
[2021-07-14] MEDS: carvediloL 6.25 MG TAB PO SCH ×2 (09:08→19:24)
[2021-07-14] MEDS: PANTOPRAZOLE 40 MG TABLET PO SCH (09:08)
[2021-07-14 10:57] LABS: Anisocytosis Slight; Basophils % (A) 1 %; Eosinophils # (A) 0.2 k/uL (0-0.7); Eosinophils % (A) 4 %; HCT 31.9 % (34.0-46.0); HGB 9.2 gm/dL (11.4-16.0); Hypochromasia Marked; Lymphocytes # (A) 0.6 k/uL (1.0-4.8); Lymphocytes % (A) 11 %; MCH 25.6 pg (25.0-35.0); MCHC 28.9 g/dL (31.0-37.0); MCV 88.8 fL (80.0-100.0); Mean Platelet Volume 9.1; Monocytes # (A) 0.4 k/uL (0-1.0); Monocytes % (A) 8 %; Neutrophils # (A) 4.1 k/uL (1.3-7.7); Neutrophils % (A) 75 %; Platelet Count 170 k/uL (150-450); RBC 3.59 m/uL (3.80-5.40); RDW 18.1 % (11.5-15.5); WBC 5.5 k/uL (3.8-10.6)
[2021-07-14 11:20] LABS: INR 1.5 (<1.2)
--- NOTE | 2021-07-14 11:21 | ECHOF ---
Referral Reason:Heart Failure MEASUREMENTS -------- HEIGHT: 175.3 cm WEIGHT: 100.7 kg BP: 153/56 IVSd: 1.2 cm (0.6 - 1.1) LVIDd: 5.8 cm (3.9 - 5.3) LVPWd: 1.5 cm (0.6 - 1.1) IVSs: 1.6 cm LVIDs: 3.5 cm LVPWs: 2.3 cm Ao Diam: 2.3 cm (2.0 - 3.7) MV EXCURSION: 23.063 mm (> 18.000) MV EF SLOPE: 66 mm/s (70 - 150) EPSS: 0.7 cm MV E Abner: 1.29 m/s MV DecT: 119 ms MV A Abner: 0.67 m/s MV E/A Ratio: 1.93 AV maxP.67 mmHg AV meanP.00 mmHg RAP: 20.00 mmHg RVSP: 53.25 mmHg FINDINGS -------- Sinus rhythm. This was a technically adequate study. The left ventricular size is normal. There is mild concentric left ventricular hypertrophy. Overa ll left ventricular systolic function is low-normal with, an EF between 50 - 55 %. Septal wall hilaria on is delayed and consistent with prior cardiac surgery. The right ventricle is normal in size. The left atrium is markedly dilated. The right atrial size is normal. Interatrial and interventricular septum intact. Aortic mechanical prosthetic valve, not well seen. [id number] mitral regurgitation is present. Moderate tricuspid regurgitation present. There is moderate to severe pulmonary hypertension. The right ventricular systolic pressure, as measured by Doppler, is 53.25mmHg. There is no pulmonic regurgitation present. The aortic root size is normal. The inferior vena cava is dilated with poor inspiratory collapse which is consistent with estimated r ight atrial pressure of 20 mmHg. There is no pericardial effusion. Small Pleural Effusion. CONCLUSIONS -------- 1. The left ventricular size is normal. 2. There is mild concentric left ventricular hypertrophy. 3. Overall left ventricular systolic function is low-normal with, an EF between 50 - 55 %. 4. The left atrium is markedly dilated. 5. Aortic mechanical prosthetic valve not well seen. 6. Gcyqhfuk-mo-auwbdd mitral regurgitation is present. 7. Moderate tricuspid regurgitation present. 8. There is moderate to severe pulmonary hypertension. 9. The right ventricular systolic pressure, as measured by Doppler, is 53.25mmHg. 10. The inferior vena cava is dilated with poor inspiratory collapse which is consistent with estimat ed right atrial pressure of 20 mmHg. [employer]: Stefanie Darling RDCS
[2021-07-14 11:23] LABS: Calcium 11.3 mg/dL (8.4-10.2); Magnesium 2.2 mg/dL (1.6-2.3); Potassium 4.1 mmol/L (3.5-5.1)
[2021-07-14] MEDS: AMIODARONE 100 MG TAB PO SCH (13:36)
--- NOTE | 2021-07-14 15:40 | P.CNPUL ---
History of Present Illness Consult date: 07/14/21 Requesting physician: Dann Acosta Reason for consult: dyspnea Chief complaint: Altered mental status History of present illness: This is a 76-year-old white female patient of resident of a local [facility], she is somewhat of a poor historian, past mental history of chronic A. fib, chronic CHF, hypertension, hyperlipidemia, previous history of CVA, chronic anemia, history of thoracic and abdominal aortic aneurysm, history of mechanical aortic valve on Coumadin, biventricular pacemaker device, was brought into the emergency department on the for evaluation of altered mental status. She does wear oxygen at the nursing facility usually wears 2 L of oxygen on a regular basis. The night before she was brought into the ER the family reports that she was alert and oriented 3. She was found unresponsive by staff at the facility. EMS was called. Upon arrival patient's pulse ox was in the 70s she was placed on a nonrebreather mask. Blood sugar was checked and was within normal limits. Patient was started to awaken since she was placed on oxygen however still remains very confused she was attempting to respond to questions. Brain CT showed degenerative nonspecific white matter changes with no evidence of acute hemorrhage or mass effect. Chest x-ray showed large pulmonary arteries with cardiomegaly, cardiac device, and diffuse interstitial pattern consistent with acute exacerbation of CHF. COVID-19 PCR was negative, influenza A and B were negative. Blood gas was completed showing pO2 of 258, pCO2 of 94, pH of 7.27, this was done on 100% nonrebreather mask, patient was then placed on BiPAP support with pressures of 10 and 5 and FiO2 of 50%, was started on diuretics, started on heparin infusion in view of her subtherapeutic INR, and she was started on empiric antibiotics in the form of Rocephin. Drug screen was negative, serum alcohol level was less than 10, urinalysis showed trace protein, small blood, no definite sign of infection, today's labs have been reviewed showing normal white count of 5.5, hemoglobin of 9.2, platelet count was 170, IN R is 1.5 and patient remains on heparin infusion for subtherapeutic INR, however she is much more awake and alert, breathing comfortably, she is off BiPAP support as she is on 2 L of oxygen at pulse ox of 98%. Echocardiogram has been completed showing F of 50-55%, aortic mechanical prosthetic valve, moderate to severe mitral regurgitation, moderate to severe pulmonary hypertension with right-sided pressure of 53.25 mmHg. All pleural effusion. Inferior vena cava was dilated with poor inspiratory collapse and right atrial pressure of 20 mmHg. Review of Systems All systems: negative Constitutional: Denies chills, Denies fever Eyes: denies blurred vision, denies pain Ears, nose, mouth and throat: Denies headache, Denies sore throat Cardiovascular: Denies chest pain, Denies shortness of breath Respiratory: Reports cough, Reports dyspnea Gastrointestinal: Denies abdominal pain, Denies diarrhea, Denies nausea, Denies vomiting Genitourinary: Denies dysuria, Denies hematuria Musculoskeletal: Denies myalgias Integumentary: Denies pruritus, Denies rash Neurological: Denies numbness, Denies weakness Psychiatric: Denies anxiety, Denies depression Endocrine: Denies fatigue, Denies weight change Past Medical History Past Medical History: Atrial Fibrillation, Heart Failure, CVA/TIA, Hyperlipidemia, Hypertension, Memory Impairment, Osteoarthritis (OA), Pneumonia, Renal Disease, Vascular Disorder Additional Past Medical History / Comment(s): Afib with cardioversion, cardiomyopathy with BiV pacer, bronchitis, pulmonary HTN, chronic respiratory failure with oxygen ATC, systolic CHF, bilateral leg edema, past abdominal aortic dissection with repairs, CVA post op aneurysm repair with mild L sided weakness/memory impairment, CKD stage IV, nephrolithiasis/surgically removed, UTIs, lower GI bleed, chronic anemia, colitis or diverticulitis, chronic wound L lower extremity, essential tremors History of Any Multi-Drug Resistant Organisms: None Reported Past Surgical History: Back Surgery, Heart Catheterization, Pacemaker Additional Past Surgical History / Comment(s): 1998 aortic disection repair, three aneurysm ascending and descending aorta, aortic valve replacement(MECHANICAL VALVE), CYST AT END OF SPINE REMOVED. CARDIAC CATHETERIZATION WHICH WAS NORMAL. biventricular pacer placed in 08/2014 - pacer is on right side of chest - physician unable to get into left, lithotripsy/double J stent, voice change/difficult to understand d/t vocal cord paralysis thought d/t intubations. Past Anesthesia/Blood Transfusion Reactions: No Reported Reaction Type of Cardiac Device: Biventricular Pacemaker Device Placement Date:: 08/2014 Smoking Status: Never smoker - Past Family History Father History Unknown: Yes Family Medical History: AFIB, Congestive Heart Failure (CHF) Additional Family Medical History / Comment(s): FATHER AT AGE 73 OF CHF. Mother History Unknown: Yes Additional Family Medical History / Comment(s): MOTHER AT AGE 78 OF SEPTIC SHOCK UNKNOWN SOURCE. Medications and Allergies Home Medications Medication Instructions Recorded Confirmed Type Spironolactone [Aldactone] 25 mg PO DAILY 11/18/19 07/13/21 History ALPRAZolam [Xanax] 0.25 mg PO Q6H PRN 07/13/21 07/13/21 History Aspirin 81 mg PO DAILY 07/13/21 07/13/21 History Carvedilol [Coreg] 18.75 mg PO BID 07/13/21 07/13/21 History Famotidine 20 mg PO DAILY 07/13/21 07/13/21 History Furosemide [Lasix] 40 mg PO BID 07/13/21 07/13/21 History Warfarin [Coumadin] 2 mg PO HS 07/13/21 07/13/21 History Allergies Allergy/AdvReac Type Severity Reaction Status Date / Time amoxicillin AdvReac Nausea & Verified 07/13/21 12:28 Vomiting & Diarrhea levofloxacin [From Levaquin] AdvReac Rash/Hives Verified 07/13/21 12:28 Penicillins AdvReac Nausea & Verified 07/13/21 12:28 Vomiting & Diarrhea vitamin K2 AdvReac Unknown Verified 07/13/21 12:28 vitamin K medications AdvReac Unknown Uncoded 07/13/21 12:28 Physical Exam Vitals: Vital Signs Temp Pulse Resp BP Pulse Ox 07/14/21 13:35 60 18 129/44 98 07/14/21 09:00 98.5 F 60 12 133/49 100 07/14/21 08:22 60 07/14/21 08:10 60 07/14/21 06:00 60 26 H 153/56 96 07/14/21 02:00 60 18 131/52 95 07/14/21 01:00 60 18 117/41 96 07/14/21 00:00 60 18 122/48 95 07/13/21 23:00 60 18 109/40 94 L 07/13/21 22:00 60 18 97 07/13/21 21:00 60 18 100 07/13/21 20:00 60 18 127/50 100 07/13/21 19:00 60 18 125/47 100 07/13/21 18:00 60 18 119/45 100 07/13/21 17:00 60 18 129/51 99 07/13/21 16:00 60 18 126/49 100 Intake and Output 07/14/21 07/14/21 07/14/21 06:59 14:59 22:59 Intake Total 136.281 Output Total 1999 1999 Balance -1863.719 -1999 Intake: Intake, IV Titration 136.281 Amount Heparin Sod,Pork in 0.45% 136.281 NaCl 25,000 unit In 0.45 % NaCl 1 250ml.bag @ 10 UNITS/KG/HR 10.07 mls/hr IV .Q24H [facility] Rx#: [id number] Output: Urine 1999 1999 Other: Weight 100.698 kg GENERAL EXAM: Alert, very pleasant, but a poor historian, 76-year-old white female, resting comfortably in bed, in emergency department, awaiting a bed on selective care unit, currently down to 2 L of oxygen, off BiPAP support, her pulse ox on 2 L of oxygen is 98% comfortable in no apparent distress. HEAD: Normocephalic/atraumatic. EYES: Normal reaction of pupils, equal size. Conjunctiva pink, sclera white. NOSE: Clear with pink turbinates. THROAT: No erythema or exudates. NECK: No masses, no JVD, no thyroid enlargement, no adenopathy. CHEST: No chest wall deformity. Symmetrical expansion. LUNGS: Equal air entry with mild bibasilar crackles CVS: Regular rate and rhythm, normal S1 and S2, no gallops, no murmurs, no rubs ABDOMEN: Soft, nontender. No hepatosplenomegaly, normal bowel sounds, no guarding or rigidity. EXTREMITIES: No clubbing, no edema, no cyanosis, 2+ pulses and upper and lower extremities. MUSCULOSKELETAL: Muscle strength and tone normal. SPINE: No scoliosis or deformity SKIN: No rashes CENTRAL NERVOUS SYSTEM: Alert and oriented -3. No focal deficits, tone is normal in all 4 extremities. PSYCHIATRIC: Alert and oriented -3. Appropriate affect. Intact judgment and insight. Results - Laboratory Findings CBC and BMP: 07/14/21 10:05 07/14/21 10:05 ABG ABG pH 7.27 (7.35-7.45) L 07/13/21 09:28 ABG pCO2 94 mmHg (35-45) H* 07/13/21 09:28 ABG pO2 258 mmHg (83-108) H 07/13/21 09:28 ABG O2 Saturation 99.8 % (94-97) H 07/13/21 09:28 PT/INR, D-dimer PT 15.0 sec (9.0-12.0) H 07/14/21 10:05 INR 1.5 (<1.2) H 07/14/21 10:05 Abnormal lab findings: Abnormal Labs 07/13/21 07/13/21 07/13/21 09:20 09:20 09:20 RBC Hgb 10.0 L Hct MCHC 28.2 L RDW 18.0 H Lymphocytes # 0.3 L PT 13.5 H INR 1.3 H APTT ABG pH ABG pCO2 ABG pO2 ABG HCO3 ABG Total CO2 ABG O2 Saturation Chloride 96 L Carbon Dioxide 36 H BUN 36 H Creatinine 1.49 H Glucose 134 H POC Glucose (mg/dL) Calcium 11.4 H Total Bilirubin 1.7 H Albumin 3.2 L Urine Protein Urine Blood Urine RBC Urine Bacteria Hyaline Casts Urine Mucus 07/13/21 07/13/21 07/13/21 09:20 09:28 09:28 RBC Hgb Hct MCHC RDW Lymphocytes # PT INR APTT ABG pH 7.27 L ABG pCO2 94 H* ABG pO2 258 H ABG HCO3 43 H* ABG Total CO2 46 H ABG O2 Saturation 99.8 H Chloride Carbon Dioxide BUN Creatinine Glucose POC Glucose (mg/dL) 138 H Calcium Total Bilirubin Albumin Urine Protein Trace H Urine Blood Small H Urine RBC 23 H Urine Bacteria Rare H Hyaline Casts 16 H Urine Mucus Rare H 07/13/21 07/14/21 07/14/21 23:25 10:05 10:05 RBC 3.59 L Hgb 9.2 L Hct 31.9 L MCHC 28.9 L RDW 18.1 H Lymphocytes # 0.6 L PT INR APTT 80.8 H ABG pH ABG pCO2 ABG pO2 ABG HCO3 ABG Total CO2 ABG O2 Saturation Chloride Carbon Dioxide 40 H BUN 34 H Creatinine 1.43 H Glucose POC Glucose (mg/dL) Calcium 11.3 H Total Bilirubin Albumin Urine Protein Urine Blood Urine RBC Urine Bacteria Hyaline Casts Urine Mucus 07/14/21 07/14/21 10:05 11:59 RBC Hgb Hct MCHC RDW Lymphocytes # PT 15.0 H INR 1.5 H APTT 59.0 H ABG pH ABG pCO2 ABG pO2 ABG HCO3 ABG Total CO2 ABG O2 Saturation Chloride Carbon Dioxide BUN Creatinine Glucose POC Glucose (mg/dL) Calcium Total Bilirubin Albumin Urine Protein Urine Blood Urine RBC Urine Bacteria Hyaline Casts Urine Mucus - Diagnostic Findings Chest x-ray: report reviewed, image reviewed Additional studies: Brain CT results reviewed, EKG reviewed, echocardiogram reviewed Assessment and Plan Plan: Assessment: #1. Acute on chronic hypoxic and hypercapnic respiratory failure related to acute exacerbation of diastolic CHF. COVID19 PCR was negative #2. Her mental status, improved with BiPAP support, related to acute hypoxic and hypercapnic respiratory failure, currently much more awake and alert, seems to be back to baseline off BiPAP support and on 2 L of oxygen #3. Acute on chronic CHF exacerbation with diastolic dysfunction #4. History of mechanical aortic valve replacement on Coumadin with subtherapeutic INR, currently on heparin infusion #5. History of atrial fibrillation #6. Previous history of CVA #7. Chronic kidney disease stage IV #8. Previous history of GI bleeding #9. History of abdominal aortic dissection and repair #10. History of a descending and ascending aortic aneurysm #11. Straight of biventricular pacemaker placement Plan: Patient continues on diuretics She is breathing comfortably, currently off BiPAP, currently on 2 L of oxygen Clinically seems to be improving Echocardiogram has been reviewed Today's labs have been reviewed Renal function is stable Vital signs are stable Continue heparin infusion Coumadin per cardiology is dosing Awaiting a bed on selective care unit Continue to follow I performed a history & physical examination of the patient and discussed their management with my nurse practitioner, Cecilia Gonzalez. I reviewed the nurse practitioner's note and agree with the documented findings and plan of care. Lung sounds are positive for dim breath sounds throughout the lung melgar. The findings and the impression was discussed with the patient. I attest to the d ocumentation by the nurse practitioner. Time with Patient: Greater than 30
[2021-07-14] MEDS: HEPARIN SOD,PORK IN 0.45% NACL 25,000 UNIT in 0.45% NACL 1 250ML.BAG IV SCH (16:03)
--- NOTE | 2021-07-14 18:20 | P.PN ---
Subjective Progress Note Date: 07/14/21 This is a 76-year-old female patient who was sent from [facility] facility with concerns of altered mental status changes. Patient has a past medical history of CHF with recent hospital admission for CHF, aortic valve replacement, chronic hypoxic respiratory failure maintained on 2 L nasal cannula and left-sided stroke. Patient was found lethargic by facility when EMS arrived patient was found to be in the 70s and 60s with pulse ox. Patient was transferred to the ER and oxygen was placed and patient began to wake up. Head CT was completed showing degenerative and nonspecific white matter change with no evidence of acute hemorrhage or mass effect. Chest x-ray performed showing suspect CHF favored over diffuse pneumonia correlate for pulmonary arterial hypertension. COVID-19 negative. ABGs performed showing a pH of 7.27, pCO2 of 94, pO2 of 258 and HCO3 level 43. . BNP elevated at 9540. INR subtherapeutic at 1.3 started on heparin gtt patient started on IV Lasix. Pulmonary service is consulted. Cardiology services consulted. 2-D echo has been ordered repeat chest x-ray ordered. Patient started on BiPAP. Patient currently resting in bed does wake up to name. On 07/14/2021 patient was seen and examined on the medical floor she is alert and oriented 3 in no apparent distress she is complaining of fatigue and generalized weakness and chest tightness otherwise she denies any complaints at this time there is no fever or chills no headache or dizziness no cough no nausea or vomiting no abdominal pain no diarrhea no blood in the stools no burning with urination no frequency or urgency and no hematuria Objective - Vital Signs Vital signs: Vital Signs Temp 98.5 F 07/14/21 09:00 Pulse 60 07/14/21 09:00 Resp 12 07/14/21 09:00 BP 133/49 07/14/21 09:00 Pulse Ox 100 07/14/21 09:00 Intake & Output 07/13/21 07/14/21 07/14/21 18:59 06:59 18:59 Intake Total 136.281 Output Total 1999 Balance -1863.719 Weight 100.698 kg Intake: Intake, IV Titration 136.281 Amount Heparin Sod,Pork in 0.45% 136.281 NaCl 25,000 unit In 0.45 % NaCl 1 250ml.bag @ 10 UNITS/KG/HR 10.07 mls/hr IV .Q24H [facility] Rx#: [id number] Output: Urine 1999 - Exam In general patient is alert and oriented 3 in no apparent distress Head normocephalic and atraumatic Neck supple no JVD no goiter Lungs diminished bilaterally Heart regular rate and rhythm S1-S2, no rub or gallop Abdomen is soft nontender nondistended positive bowel sounds no hepatosplenomegaly Extremities no edema Neuro no gross focal deficits - Labs CBC & Chem 7: 07/14/21 10:05 07/14/21 10:05 Labs: Abnormal Lab Results - Last 24 Hours (Table) 07/13/21 07/13/21 Range/Units 09:28 23:25 APTT 80.8 H (22.0-30.0) sec Urine Protein Trace H (Negative) Urine Blood Small H (Negative) Urine RBC 23 H (0-5) /hpf Urine Bacteria Rare H (None) /hpf Hyaline Casts 16 H (0-2) /lpf Urine Mucus Rare H (None) /hpf Assessment and Plan Assessment: Altered mental status changes. Head CT negative acute on chronic respiratory failure acute on chronic CHF exacerbation. History of CHF with cardiomyopathy History mechanical aortic valve replacement maintained on Coumadin INR subtherapetic History of atrial fibrillation History of stroke History of chronic kidney disease Previous history of GI bleed DVT prophylaxis heparin drip Cardiology and pulmonary service is consulted Repeat labs ordered Patient started on IV antibiotics started on IV lasix Repeat chest x-ray ordered 2decho ordered
[2021-07-15 08:49] LABS: Anisocytosis Slight; Basophils # (A) 0.1 k/uL (0-0.2); Basophils % (A) 1 %; Eosinophils # (A) 0.2 k/uL (0-0.7); Eosinophils % (A) 4 %; HGB 9.5 gm/dL (11.4-16.0); Hypochromasia Marked; Lymphocytes # (A) 0.7 k/uL (1.0-4.8); Lymphocytes % (A) 13 %; MCH 26.2 pg (25.0-35.0); MCHC 29.6 g/dL (31.0-37.0); MCV 88.6 fL (80.0-100.0); Mean Platelet Volume 8.6; Monocytes # (A) 0.5 k/uL (0-1.0); Monocytes % (A) 9 %; Neutrophils # (A) 3.6 k/uL (1.3-7.7); Neutrophils % (A) 71 %; Platelet Count 177 k/uL (150-450); RBC 3.61 m/uL (3.80-5.40); RDW 18.3 % (11.5-15.5); WBC 5.1 k/uL (3.8-10.6)
[2021-07-15 09:07] LABS: INR 1.4 (<1.2); Prothrombin Time 13.9 sec (9.0-12.0)
[2021-07-15] MEDS: carvediloL 6.25 MG TAB PO SCH ×2 (09:14→17:59)
[2021-07-15] MEDS: AMIODARONE 100 MG TAB PO SCH (09:14)
[2021-07-15] MEDS: ASPIRIN 81 MG PO SCH (09:15)
[2021-07-15] MEDS: PANTOPRAZOLE 40 MG TABLET PO SCH (09:15)
[2021-07-15 09:32] LABS: Albumin 3.1 g/dL (3.5-5.0); Calcium 11.4 mg/dL (8.4-10.2); Potassium 3.9 mmol/L (3.5-5.1); Total Bilirubin 1.3 mg/dL (0.2-1.3); Total Protein 6.9 g/dL (6.3-8.2)
[2021-07-15] MEDS: FUROSEMIDE 10 MG/ML 4 ML VIAL IV SCH ×2 (12:42→22:38)
[2021-07-15] MEDS: HEPARIN SOD,PORK IN 0.45% NACL 25,000 UNIT in 0.45% NACL 1 250ML.BAG IV SCH ×2 (12:42→22:32)
--- NOTE | 2021-07-15 13:05 | P.PN ---
Subjective Progress Note Date: 07/15/21 Principal diagnosis: altered mental status This is a 76-year-old white female patient of resident of a local senior care, she is somewhat of a poor historian, past mental history of chronic A. fib, chronic CHF, hypertension, hyperlipidemia, previous history of CVA, chronic [place], history of thoracic and abdominal aortic aneurysm, history of mechanical aortic valve on Coumadin, biventricular pacemaker device, was brought into the emergency department on the for evaluation of altered mental status. She does wear oxygen at the nursing facility usually wears 2 L of oxygen on a regular basis. The night before she was brought into the ER the family reports that she was alert and oriented 3. She was found unresponsive by staff at the facility. EMS was called. Upon arrival patient's pulse ox was in the 70s she was placed on a nonrebreather mask. Blood sugar was checked and was within normal limits. Patient was started to awaken since she was placed on oxygen however still remains very confused she was attempting to respond to questions. Brain CT showed degenerative nonspecific white matter changes with no evidence of acute hemorrhage or mass effect. Chest x-ray showed large pulmonary arteries with cardiomegaly, cardiac device, and diffuse interstitial pattern consistent with acute exacerbation of CHF. COVID-19 PCR was negative, influenza A and B were negative. Blood gas was completed showing pO2 of 258, pCO2 of 94, pH of 7.27, this was done on 100% nonrebreather mask, patient was then placed on BiPAP support with pressures of 10 and 5 and FiO2 of 50%, was started on diuretics, started on heparin infusion in view of her subtherapeutic INR, and she was started on empiric antibiotics in the form of Rocephin. Drug screen was negative, serum alcohol level was less than 10, urinalysis showed trace protein, small blood, no definite sign of infection, today's labs have been reviewed showing normal white count of 5.5, hemoglobin of 9.2, platelet count was 170, INR is 1.5 and patient remains on heparin infusion for subtherapeutic INR, h owever she is much more awake and alert, breathing comfortably, she is off BiPAP support as she is on 2 L of oxygen at pulse ox of 98%. Echocardiogram has been completed showing F of 50-55%, aortic mechanical prosthetic valve, moderate to severe mitral regurgitation, moderate to severe pulmonary hypertension with right-sided pressure of 53.25 mmHg. All pleural effusion. Inferior vena cava was dilated with poor inspiratory collapse and right atrial pressure of 20 mmHg. on 07/15/2021 patient seen in follow-up on selective care unit, she is breathing much more comfortably, she is awake and alert, oriented 3, she is off BiPAP support, currently on 2 L of oxygen her pulse ox is 95%, she's been afebrile, hemodynamically she is stable, breathing is nonlabored, lung sounds reveal some diminished breath sounds with minimal crackles at the bases, patient remains on IV diuretics, she is in negative net fluid balance of.her last chest x-ray yesterday showed findings consistent with CHF, small bilateral pleural effusions and mild to moderate bilateral interstitial edema. IV Lasix is a 40 mg every 12 hours, patient continues on Coreg 6.25 mg twice daily, she remains on heparin infusion in view of subtherapeutic INR, and today's INR is 1.4. We will restart patient's Coumadin today, pharmacy to dose. Objective - Vital Signs Vital signs: Vital Signs Temp 97.5 F L 07/15/21 12:00 Pulse 60 07/15/21 12:00 Resp 22 07/15/21 12:00 BP 150/66 07/15/21 12:00 Pulse Ox 95 07/15/21 12:00 Intake & Output 07/14/21 07/15/21 07/15/21 18:59 06:59 18:59 Intake Total 113.719 100 284.356 Output Total 1999 1400 475 Balance -1886.281 -1300 -190.644 Weight 100.698 kg 100.698 kg Intake: Intake, IV Titration 113.719 166.356 Amount Heparin Sod,Pork in 0.45% 113.719 166.356 NaCl 25,000 unit In 0.45 % NaCl 1 250ml.bag @ 10 UNITS/KG/HR 10.07 mls/hr IV .Q24H [facility] Rx#: [id number] Oral 100 118 Output: Urine 1999 1400 475 Other: Voiding Method Indwelling Catheter Indwelling Catheter Indwelling Catheter - Exam GENERAL EXAM: Alert, very pleasant, but a poor historian, 76-year-old white female, resting comfortably in bed, in emergency department, awaiting a bed on selective care unit, currently down to 2 L of oxygen, off BiPAP support, her pulse ox on 2 L of oxygen is 95% comfortable in no apparent distress. HEAD: Normocephalic/atraumatic. EYES: Normal reaction of pupils, equal size. Conjunctiva pink, sclera white. NOSE: Clear with pink turbinates. THROAT: No erythema or exudates. NECK: No masses, no JVD, no thyroid enlargement, no adenopathy. CHEST: No chest wall deformity. Symmetrical expansion. LUNGS: Equal air entry with mild bibasilar crackles CVS: Regular rate and rhythm, normal S1 and S2, no gallops, no murmurs, no rubs ABDOMEN: Soft, nontender. No hepatosplenomegaly, normal bowel sounds, no guarding or rigidity. EXTREMITIES: No clubbing, no edema, no cyanosis, 2+ pulses and upper and lower extremities. MUSCULOSKELETAL: Muscle strength and tone normal. SPINE: No scoliosis or deformity SKIN: No rashes CENTRAL NERVOUS SYSTEM: Alert and oriented -3. No focal deficits, tone is normal in all 4 extremities. PSYCHIATRIC: Alert and oriented -3. Appropriate affect. Intact judgment and insight. - Labs CBC & Chem 7: 07/15/21 08:19 07/15/21 08:19 Labs: Abnormal Lab Results - Last 24 Hours (Table) 07/15/21 07/15/21 07/15/21 Range/Units 08:19 08:19 08:19 RBC 3.61 L (3.80-5.40) m/uL Hgb 9.5 L (11.4-16.0) gm/dL Hct 32.0 L (34.0-46.0) % MCHC 29.6 L (31.0-37.0) g/dL RDW 18.3 H (11.5-15.5) % Lymphocytes # 0.7 L (1.0-4.8) k/uL PT 13.9 H (9.0-12.0) sec INR 1.4 H (<1.2) APTT (22.0-30.0) sec Chloride 97 L (98-107) mmol/L Carbon Dioxide 40 H (22-30) mmol/L BUN 34 H (7-17) mg/dL Creatinine 1.38 H (0.52-1.04) mg/dL Calcium 11.4 H (8.4-10.2) mg/dL Albumin 3.1 L (3.5-5.0) g/dL 07/15/21 Range/Units 08:19 RBC (3.80-5.40) m/uL Hgb (11.4-16.0) gm/dL Hct (34.0-46.0) % MCHC (31.0-37.0) g/dL RDW (11.5-15.5) % Lymphocytes # (1.0-4.8) k/uL PT (9.0-12.0) sec INR (<1.2) APTT 40.2 H (22.0-30.0) sec Chloride (98-107) mmol/L Carbon Dioxide (22-30) mmol/L BUN (7-17) mg/dL Creatinine (0.52-1.04) mg/dL Calcium (8.4-10.2) mg/dL Albumin (3.5-5.0) g/dL Microbiology - Last 24 Hours (Table) 07/13/21 09:35 Blood Culture - Preliminary Blood No Growth after 48 hours 07/13/21 09:30 Blood Culture - Preliminary Blood No Growth after 48 hours Assessment and Plan Plan: Assessment: #1. Acute on chronic hypoxic and hypercapnic respiratory failure related to acute exacerbation of diastolic CHF. COVID19 PCR was negative #2. Altered mental status, improved with BiPAP support, related to acute hypoxic and hypercapnic respiratory failure, currently much more awake and alert, seems to be back to baseline off BiPAP support and on 2 L of oxygen #3. Acute on chronic CHF exacerbation with diastolic dysfunction #4. History of mechanical aortic valve replacement on Coumadin with subtherapeutic INR, currently on heparin infusion #5. History of atrial fibrillation #6. Previous history of CVA #7. Chronic kidney disease stage IV #8. Previous history of GI bleeding #9. History of abdominal aortic dissection and repair #10. History of a descending and ascending aortic aneurysm #11. History of biventricular pacemaker placement Plan: She is breathing comfortably, currently off BiPAP, currently on 2 L of oxygen No altered mentation, she is back to baseline, did not require BiPAP support last night She is maintaining negative fluid balance, remains on IV diuretics, cardiology to dose Start Coumadin pharmacy to dose for mechanical valve Worsening dyspnea or hypoxia Increase activity as tolerated Continue heparin infusion until INR is therapeutic for mechanical valve dosing We'll continue to follow I performed a history & physical examination of the patient and discussed their management with my nurse practitioner, Cecilia Gonzalez. I reviewed the nurse practitioner's note and agree with the documented findings and plan of care. Lung sounds are positive for dim breath sounds throughout the lung melgar. The findings and the impression was discussed with the patient. I attest to the d ocumentation by the nurse practitioner. Time with Patient: Less than 30
--- NOTE | 2021-07-15 13:26 | P.PN ---
Subjective This is a 76-year-old female with a past medical history of type A aortic dissection in 1998 and aortic aneursym s/p bentall procedure w replacement of arch and elephant trunk in 2011, and repair in 2012, aortic stenosis status post aortic valve replacement in 1998, hypertension, dyslipidemia, left bundle-branch block, persistent atrial fibrillation, chronic diastolic heart failure, status post dual chamber pacemaker implantation in 2014. She follows in the office with Dr. Helton. We have been consulted for congestive heart failure. Patient seen at bedside, no acute distress. She continues to have some shortness of breath and cough. 95% on 2L nasal cannula. She denies any chest pain. Patient was started on IV Lasix. With 3.4 L urine output over the past 24 hours. Echocardiogram revealed EF 5055 percent, moderate to severe mitral regurgitation, moderate tricuspid regurgitation, moderate to severe pulmonary hypertension with an RVSP of 53 mmHg. She is currently maintained on IV Lasix 40 mg twice a day, IV heparin, aspirin 81 mg daily, carvedilol 6.25 mg twice a day, Coumadin Labs, WBC 5.1, hemoglobin 9.5, platelets 177, INR 1.4, sodium 130, potassium 3.9, BUN 34, serum creatinine 1.38, magnesium VITALS: Reviewed GENERAL: In no acute distress. NECK: Supple without JVD or thyromegaly. LUNGS: Breath sounds with bilateral crackles and diminished auscultation bilaterally. Respiration equal and unlabored. HEART: Regular rate and rhythm without murmurs, rubs or gallops. S1 and S2 heard. EXTREMITIES: Normal range of motion, no edema. No clubbing or cyanosis. Peripheral pulses intact. ASSESSMENT Acute exacerbation of chronic diastolic heart failure Status post aortic valve replacement Sick sinus syndrome status post permanent pacemaker History of permanent atrial fibrillation on coumadin Subtherapeutic anticoagulation for mechanical valve History of AAA s/p repair Hypertenion Dyslipidemia PLAN We will continue IV lasix 40mg BID today, reassess tomorrow Monitor renal function and electrolytes, I/Os, daily weights Continue home amiodarone and carvedilol Continue IV heparin bridge to coumadin Further recommendations based on clinical course Nurse Practitioner note has been reviewed, I agree with a documented findings and plan of care. Patient was seen and examined. Objective - Vital Signs Vital signs: Vital Signs Temp 97.5 F L 07/15/21 12:00 Pulse 60 07/15/21 12:00 Resp 22 07/15/21 12:00 BP 150/66 07/15/21 12:00 Pulse Ox 95 07/15/21 12:00 Intake & Output 07/14/21 07/15/21 07/15/21 18:59 06:59 18:59 Intake Total 113.719 100 284.356 Output Total 1999 1400 475 Balance -1886.281 -1300 -190.644 Weight 100.698 kg 100.698 kg Intake: Intake, IV Titration 113.719 166.356 Amount Heparin Sod,Pork in 0.45% 113.719 166.356 NaCl 25,000 unit In 0.45 % NaCl 1 250ml.bag @ 10 UNITS/KG/HR 10.07 mls/hr IV .Q24H [facility] Rx#: [id number] Oral 100 118 Output: Urine 1999 1400 475 Other: Voiding Method Indwelling Catheter Indwelling Catheter Indwelling Catheter - Labs CBC & Chem 7: 07/15/21 08:19 07/15/21 08:19 Labs: Abnormal Lab Results - Last 24 Hours (Table) 07/15/21 07/15/21 07/15/21 Range/Units 08:19 08:19 08:19 RBC 3.61 L (3.80-5.40) m/uL Hgb 9.5 L (11.4-16.0) gm/dL Hct 32.0 L (34.0-46.0) % MCHC 29.6 L (31.0-37.0) g/dL RDW 18.3 H (11.5-15.5) % Lymphocytes # 0.7 L (1.0-4.8) k/uL PT 13.9 H (9.0-12.0) sec INR 1.4 H (<1.2) APTT (22.0-30.0) sec Chloride 97 L (98-107) mmol/L Carbon Dioxide 40 H (22-30) mmol/L BUN 34 H (7-17) mg/dL Creatinine 1.38 H (0.52-1.04) mg/dL Calcium 11.4 H (8.4-10.2) mg/dL Albumin 3.1 L (3.5-5.0) g/dL 07/15/21 Range/Units 08:19 RBC (3.80-5.40) m/uL Hgb (11.4-16.0) gm/dL Hct (34.0-46.0) % MCHC (31.0-37.0) g/dL RDW (11.5-15.5) % Lymphocytes # (1.0-4.8) k/uL PT (9.0-12.0) sec INR (<1.2) APTT 40.2 H (22.0-30.0) sec Chloride (98-107) mmol/L Carbon Dioxide (22-30) mmol/L BUN (7-17) mg/dL Creatinine (0.52-1.04) mg/dL Calcium (8.4-10.2) mg/dL Albumin (3.5-5.0) g/dL Microbiology - Last 24 Hours (Table) 07/13/21 09:35 Blood Culture - Preliminary Blood No Growth after 48 hours 07/13/21 09:30 Blood Culture - Preliminary Blood No Growth after 48 hours
--- NOTE | 2021-07-15 17:18 | P.PN ---
Subjective Progress Note Date: 07/15/21 This is a 76-year-old female patient who was sent from [facility] facility with concerns of altered mental status changes. Patient has a past medical history of CHF with recent hospital admission for CHF, aortic valve replacement, chronic hypoxic respiratory failure maintained on 2 L nasal cannula and left-sided stroke. Patient was found lethargic by facility when EMS arrived patient was found to be in the 70s and 60s with pulse ox. Patient was transferred to the ER and oxygen was placed and patient began to wake up. Head CT was completed showing degenerative and nonspecific white matter change with no evidence of acute hemorrhage or mass effect. Chest x-ray performed showing suspect CHF favored over diffuse pneumonia correlate for pulmonary arterial hypertension. COVID-19 negative. ABGs performed showing a pH of 7.27, pCO2 of 94, pO2 of 258 and HCO3 level 43. . BNP elevated at 9540. INR subtherapeutic at 1.3 started on heparin gtt patient started on IV Lasix. Pulmonary service is consulted. Cardiology services consulted. 2-D echo has been ordered repeat chest x-ray ordered. Patient started on BiPAP. Patient currently resting in bed does wake up to name. On 07/14/2021 patient was seen and examined on the medical floor she is alert and oriented 3 in no apparent distress she is complaining of fatigue and generalized weakness and chest tightness otherwise she denies any complaints at this time there is no fever or chills no headache or dizziness no cough no nausea or vomiting no abdominal pain no diarrhea no blood in the stools no burning with urination no frequency or urgency and no hematuria On 07/15/2021 patient was seen and examined on the medical floor she is alert and oriented 3 in no apparent distress there is no fever or chills no headache or dizziness no chest pain no shortness of breath no cough no nausea or vomiting no abdominal pain no diarrhea no blood in the stools no burning with urination no frequency or urgency and no hematuria. Patient is still complaining of generalized weakness otherwise she denies any complaints Objective - Vital Signs Vital signs: Vital Signs Temp 97.5 F L 07/15/21 12:00 Pulse 60 07/15/21 13:20 Resp 21 07/15/21 13:20 BP 150/66 07/15/21 12:00 Pulse Ox 95 07/15/21 12:00 Intake & Output 0107/15/21 07/15/21 18:59 06:59 18:59 Intake Total 113.719 100 284.356 Output Total 1999 1400 1075 Balance -1886.281 -1300 -790.644 Weight 100.698 kg 100.698 kg Intake: Intake, IV Titration 113.719 166.356 Amount Heparin Sod,Pork in 0.45% 113.719 166.356 NaCl 25,000 unit In 0.45 % NaCl 1 250ml.bag @ 10 UNITS/KG/HR 10.07 mls/hr IV .Q24H [facility] Rx#: [id number] Oral 100 118 Output: Urine 1999 1400 1075 Other: Voiding Method Indwelling Catheter Indwelling Catheter Diaper Indwelling Catheter - Exam In general patient is alert and oriented 3 in no apparent distress Head normocephalic and atraumatic Neck supple no JVD no goiter Lungs diminished bilaterally Heart regular rate and rhythm S1-S2, no rub or gallop Abdomen is soft nontender nondistended positive bowel sounds no hepatosplenomegaly Extremities no edema Neuro no gross focal deficits - Labs CBC & Chem 7: 07/15/21 08:19 07/15/21 08:19 Labs: Abnormal Lab Results - Last 24 Hours (Table) 07/15/21 07/15/21 07/15/21 Range/Units 08:19 08:19 08:19 RBC 3.61 L (3.80-5.40) m/uL Hgb 9.5 L (11.4-16.0) gm/dL Hct 32.0 L (34.0-46.0) % MCHC 29.6 L (31.0-37.0) g/dL RDW 18.3 H (11.5-15.5) % Lymphocytes # 0.7 L (1.0-4.8) k/uL PT 13.9 H (9.0-12.0) sec INR 1.4 H (<1.2) APTT (22.0-30.0) sec Chloride 97 L (98-107) mmol/L Carbon Dioxide 40 H (22-30) mmol/L BUN 34 H (7-17) mg/dL Creatinine 1.38 H (0.52-1.04) mg/dL Calcium 11.4 H (8.4-10.2) mg/dL Albumin 3.1 L (3.5-5.0) g/dL 07/15/21 Range/Units 08:19 RBC (3.80-5.40) m/uL Hgb (11.4-16.0) gm/dL Hct (34.0-46.0) % MCHC (31.0-37.0) g/dL RDW (11.5-15.5) % Lymphocytes # (1.0-4.8) k/uL PT (9.0-12.0) sec INR (<1.2) APTT 40.2 H (22.0-30.0) sec Chloride (98-107) mmol/L Carbon Dioxide (22-30) mmol/L BUN (7-17) mg/dL Creatinine (0.52-1.04) mg/dL Calcium (8.4-10.2) mg/dL Albumin (3.5-5.0) g/dL Microbiology - Last 24 Hours (Table) 07/13/21 09:35 Blood Culture - Preliminary Blood No Growth after 48 hours 07/13/21 09:30 Blood Culture - Preliminary Blood No Growth after 48 hours Assessment and Plan Assessment: Altered mental status changes. Head CT negative acute on chronic respiratory failure acute on chronic CHF exacerbation. History of CHF with cardiomyopathy History mechanical aortic valve replacement maintained on Coumadin INR s ubtherapetic History of atrial fibrillation History of stroke History of chronic kidney disease Previous history of GI bleed DVT prophylaxis heparin drip Cardiology and pulmonary service is consulted Repeat labs ordered Patient started on IV antibiotics started on IV lasix Repeat chest x-ray ordered 2decho ordered
[2021-07-15] MEDS ORDERED: WARFARIN 2 MG TAB PO ONE (18:00)
[2021-07-16] MEDS: carvediloL 6.25 MG TAB PO SCH ×2 (05:57→16:34)
[2021-07-16 09:03] LABS: INR 1.2 (<1.2); Partial Thromboplastin Time 77.7 sec (22.0-30.0); Prothrombin Time 12.7 sec (9.0-12.0)
[2021-07-16 09:34] LABS: Calcium 11.5 mg/dL (8.4-10.2); Potassium 3.9 mmol/L (3.5-5.1)
[2021-07-16] MEDS: ASPIRIN 81 MG PO SCH (10:01)
[2021-07-16] MEDS: AMIODARONE 100 MG TAB PO SCH (10:01)
[2021-07-16] MEDS: PANTOPRAZOLE 40 MG TABLET PO SCH (10:02)
--- NOTE | 2021-07-16 11:05 | P.PN ---
Subjective Progress Note Date: 07/16/21 This is a 76-year-old female patient who was sent from [facility] facility with concerns of altered mental status changes. Patient has a past medical history of CHF with recent hospital admission for CHF, aortic valve replacement, chronic hypoxic respiratory failure maintained on 2 L nasal cannula and left-sided stroke. Patient was found lethargic by facility when EMS arrived patient was found to be in the 70s and 60s with pulse ox. Patient was transferred to the ER and oxygen was placed and patient began to wake up. Head CT was completed showing degenerative and nonspecific white matter change with no evidence of acute hemorrhage or mass effect. Chest x-ray performed showing suspect CHF favored over diffuse pneumonia correlate for pulmonary arterial hypertension. COVID-19 negative. ABGs performed showing a pH of 7.27, pCO2 of 94, pO2 of 258 and HCO3 level 43. . BNP elevated at 9540. INR subtherapeutic at 1.3 started on heparin gtt patient started on IV Lasix. Pulmonary service is consulted. Cardiology services consulted. 2-D echo has been ordered repeat chest x-ray ordered. Patient started on BiPAP. Patient currently resting in bed does wake up to name. On 07/14/2021 patient was seen and examined on the medical floor she is alert and oriented 3 in no apparent distress she is complaining of fatigue and generalized weakness and chest tightness otherwise she denies any complaints at this time there is no fever or chills no headache or dizziness no cough no nausea or vomiting no abdominal pain no diarrhea no blood in the stools no burning with urination no frequency or urgency and no hematuria On 07/15/2021 patient was seen and examined on the medical floor she is alert and oriented 3 in no apparent distress there is no fever or chills no headache or dizziness no chest pain no shortness of breath no cough no nausea or vomiting no abdominal pain no diarrhea no blood in the stools no burning with urination no frequency or urgency and no hematuria. Patient is still complaining of generalized weakness otherwise she denies any complaints 07/16/2021 patient is alert and oriented 3. Patient remains on IV Lasix. Patient also remains on IV heparin while bridging on Coumadin. Pharmacy to dose Coumadin ordered. Patient reports occasional shortness of breath but today feels improved. Patient denies chest pain. Patient denies nausea vomiting or diarrhea. Patient denies any urinary burning or frequency Objective - Vital Signs Vital signs: Vital Signs Temp 96.8 F L 07/16/21 08:00 Pulse 60 07/16/21 08:00 Resp 17 07/16/21 08:00 BP 129/60 07/16/21 08:00 Pulse Ox 91 L 07/16/21 08:00 Intake & Output 07/15/21 07/16/21 07/16/21 18:59 06:59 18:59 Intake Total 524.356 108.924 372.001 Output Total 2375 1000 400 Balance -1850.644 -891.076 -27.999 Weight 100.698 kg 84.5 kg Intake: Intake, IV Titration 166.356 108.924 132.001 Amount Heparin Sod,Pork in 0.45% 166.356 108.924 132.001 NaCl 25,000 unit In 0.45 % NaCl 1 250ml.bag @ 10 UNITS/KG/HR 10.07 mls/hr IV .Q[facility]H [facility] Rx#: [id number] Oral 358 240 Output: Urine 2375 1000 400 Other: Voiding Method Diaper Diaper Indwelling Catheter Indwelling Catheter # Bowel Movements 1 - Exam In general patient is alert and oriented 3 in no apparent distress Head normocephalic and atraumatic Neck supple no JVD no goiter Lungs diminished bilaterally Heart regular rate and rhythm S1-S2, no rub or gallop Abdomen is soft nontender nondistended positive bowel sounds no hepatosplenomegaly Extremities no edema Neuro no gross focal deficits - Labs CBC & Chem 7: 07/15/21 08:19 07/16/21 07:40 Labs: Abnormal Lab Results - Last 24 Hours (Table) 07/15/21 07/15/21 07/16/21 Range/Units 08:19 17:01 07:40 PT 12.7 H (9.0-12.0) sec INR 1.2 H (<1.2) APTT 40.2 H 60.5 H 77.7 H (22.0-30.0) sec Chloride (98-107) mmol/L Carbon Dioxide (22-30) mmol/L BUN (7-17) mg/dL Creatinine (0.52-1.04) mg/dL Calcium (8.4-10.2) mg/dL 07/16/21 Range/Units 07:40 PT (9.0-12.0) sec INR (<1.2) APTT (22.0-30.0) sec Chloride 97 L (98-107) mmol/L Carbon Dioxide 40 H (22-30) mmol/L BUN 33 H (7-17) mg/dL Creatinine 1.31 H (0.52-1.04) mg/dL Calcium 11.5 H (8.4-10.2) mg/dL Microbiology - Last 24 Hours (Table) 07/13/21 09:35 Blood Culture - Preliminary Blood No Growth after 48 hours 07/13/21 09:30 Blood Culture - Preliminary Blood No Growth after 48 hours Assessment and Plan Assessment: Altered mental status changes. Head CT negative acute on chronic respiratory failure acute on chronic CHF exacerbation. History of CHF with cardiomyopathy History mechanical aortic valve replacement maintained on Coumadin INR subtherapetic History of atrial fibrillation History of stroke History of chronic kidney disease Previous history of GI bleed DVT prophylaxis heparin drip Pulmonary and cardiology services following Patient maintained on IV Lasix Currently on IV heparin bridging over to Coumadin
--- NOTE | 2021-07-16 13:38 | P.PN ---
Subjective This is a 76-year-old female with a past medical history of type A aortic dissection in 1998 and aortic aneursym s/p bentall procedure w replacement of arch and elephant trunk in 2011, and repair in 2012, aortic stenosis status post aortic valve replacement in 1998, hypertension, dyslipidemia, left bundle-branch block, persistent atrial fibrillation, chronic diastolic heart failure, status post dual chamber pacemaker implantation in 2014. She follows in the office with Dr. Helton. We have been consulted for congestive heart failure. Patient seen at bedside, no acute distress. Her shortness of breath has improved. 95% on 2L nasal cannula. She denies any chest pain. Patient was started on IV Lasix. With 3375m L urine output over the past 24 hours. Echocardiogram revealed EF 5055 percent, moderate to severe mitral regurgitation, moderate tricuspid regurgitation, moderate to severe pulmonary hypertension with an RVSP of 53 mmHg. She was only given 2mg coumadin overnight. She is currently maintained on IV Lasix 40 mg twice a day, IV heparin, aspirin 81 mg daily, carvedilol 6.25 mg twice a day, Coumadin Labs, creatinine 1.2, sodium 138, potassium 3.9, BUN 33, serum creatinine 1.3 VITALS: Reviewed GENERAL: In no acute distress. NECK: Supple without JVD or thyromegaly. LUNGS: Breath sounds with bilateral crackles and diminished auscultation bilaterally. Respiration equal and unlabored. HEART: Regular rate and rhythm without murmurs, rubs or gallops. S1 and S2 heard. EXTREMITIES: Normal range of motion, 1+ bilateral lower extremity edema. No clubbing or cyanosis. Peripheral pulses intact. ASSESSMENT Acute exacerbation of chronic diastolic heart failure Status post aortic valve replacement Sick sinus syndrome status post permanent pacemaker History of permanent atrial fibrillation on coumadin Subtherapeutic anticoagulation for mechanical valve History of AAA s/p repair Hypertenion Dyslipidemia PLAN We will decrease V lasix 40mg daily today, reassess tomorrow Monitor renal function and electrolytes, I/Os, daily weights Continue home amiodarone and carvedilol Continue IV heparin bridge to coumadin. Will given 7.5mg coumadin tonight Further recommendations based on clinical course Nurse Practitioner note has been reviewed, I agree with a documented findings and plan of care. Patient was seen and examined. Objective - Vital Signs Vital signs: Vital Signs Temp 98.5 F 07/16/21 11:49 Pulse 62 07/16/21 11:49 Resp 16 07/16/21 11:49 BP 169/74 07/16/21 11:49 Pulse Ox 95 07/16/21 11:49 Intake & Output 07/15/21 07/16/21 07/16/21 18:59 06:59 18:59 Intake Total 524.356 108.924 372.001 Output Total 2375 1000 400 Balance -1850.644 -891.076 -27.999 Weight 100.698 kg 84.5 kg Intake: Intake, IV Titration 166.356 108.924 132.001 Amount Heparin Sod,Pork in 0.45% 166.356 108.924 132.001 NaCl 25,000 unit In 0.45 % NaCl 1 250ml.bag @ 10 UNITS/KG/HR 10.07 mls/hr IV .Q24H [facility] Rx#: [id number] Oral 358 240 Output: Urine 2375 1000 400 Other: Voiding Method Diaper Diaper Indwelling Catheter Indwelling Catheter Indwelling Catheter # Bowel Movements 1 - Labs CBC & Chem 7: 07/15/21 08:19 07/16/21 07:40 Labs: Abnormal Lab Results - Last 24 Hours (Table) 07/15/21 07/16/21 07/16/21 Range/Units 17:01 07:40 07:40 PT 12.7 H (9.0-12.0) sec INR 1.2 H (<1.2) APTT 60.5 H 77.7 H (22.0-30.0) sec Chloride 97 L (98-107) mmol/L Carbon Dioxide 40 H (22-30) mmol/L BUN 33 H (7-17) mg/dL Creatinine 1.31 H (0.52-1.04) mg/dL Calcium 11.5 H (8.4-10.2) mg/dL Microbiology - Last 24 Hours (Table) 07/13/21 09:35 Blood Culture - Preliminary Blood No Growth after 72 hours 07/13/21 09:30 Blood Culture - Preliminary Blood No Growth after 72 hours
--- NOTE | 2021-07-16 17:52 | P.PN ---
Subjective Progress Note Date: 07/16/21 Principal diagnosis: altered mental status This is a 76-year-old white female patient of resident of a local senior living, she is somewhat of a poor historian, past mental history of chronic A. fib, chronic CHF, hypertension, hyperlipidemia, previous history of CVA, chronic [place], history of thoracic and abdominal aortic aneurysm, history of mechanical aortic valve on Coumadin, biventricular pacemaker device, was brought into the emergency department on the for evaluation of altered mental status. She does wear oxygen at the nursing facility usually wears 2 L of oxygen on a regular basis. The night before she was brought into the ER the family reports that she was alert and oriented 3. She was found unresponsive by staff at the facility. EMS was called. Upon arrival patient's pulse ox was in the 70s she was placed on a nonrebreather mask. Blood sugar was checked and was within normal limits. Patient was started to awaken since she was placed on oxygen however still remains very confused she was attempting to respond to questions. Brain CT showed degenerative nonspecific white matter changes with no evidence of acute hemorrhage or mass effect. Chest x-ray showed large pulmonary arteries with cardiomegaly, cardiac device, and diffuse interstitial pattern consistent with acute exacerbation of CHF. COVID-19 PCR was negative, influenza A and B were negative. Blood gas was completed showing pO2 of 258, pCO2 of 94, pH of 7.27, this was done on 100% nonrebreather mask, patient was then placed on BiPAP support with pressures of 10 and 5 and FiO2 of 50%, was started on diuretics, started on heparin infusion in view of her subtherapeutic INR, and she was started on empiric antibiotics in the form of Rocephin. Drug screen was negative, serum alcohol level was less than 10, urinalysis showed trace protein, small blood, no definite sign of infection, today's labs have been reviewed showing normal white count of 5.5, hemoglobin of 9.2, platelet count was 170, INR is 1.5 and patient remains on heparin infusion for subtherapeutic INR, h owever she is much more awake and alert, breathing comfortably, she is off BiPAP support as she is on 2 L of oxygen at pulse ox of 98%. Echocardiogram has been completed showing F of 50-55%, aortic mechanical prosthetic valve, moderate to severe mitral regurgitation, moderate to severe pulmonary hypertension with right-sided pressure of 53.25 mmHg. All pleural effusion. Inferior vena cava was dilated with poor inspiratory collapse and right atrial pressure of 20 mmHg. on 07/15/2021 patient seen in follow-up on selective care unit, she is breathing much more comfortably, she is awake and alert, oriented 3, she is off BiPAP support, currently on 2 L of oxygen her pulse ox is 95%, she's been afebrile, hemodynamically she is stable, breathing is nonlabored, lung sounds reveal some diminished breath sounds with minimal crackles at the bases, patient remains on IV diuretics, she is in negative net fluid balance of.her last chest x-ray yesterday showed findings consistent with CHF, small bilateral pleural effusions and mild to moderate bilateral interstitial edema. IV Lasix is a 40 mg every 12 hours, patient continues on Coreg 6.25 mg twice daily, she remains on heparin infusion in view of subtherapeutic INR, and today's INR is 1.4. We will restart patient's Coumadin today, pharmacy to dose. On 07/16/2021 patient seen in follow-up on selective care unit, she is resting comfortably in bed, in no acute distress, she is currently on 2 L of oxygen pulse ox is 95%, she remains on Lasix and the dose was cut back to once daily, lung sounds reveal diffuse crackles bilaterally, does not appear to be in any acute distress, her Coumadin has been started, however her INR is still sub therapeutic at 1.2, she remains on heparin infusion. She's had no acute events overnight. No recent chest x-ray, vital signs have been stable, blood cultures have shown no growth. Today's labs have been reviewed, sodium is 138, potassium is 3.9, CO2 is 40, BUN is 33, creatinine is 1.31. Objective - Vital Signs Vital signs: Vital Signs Temp 97.8 F 07/16/21 16:00 Pulse 60 07/16/21 16:00 Resp 17 07/16/21 16:00 BP 174/72 07/16/21 16:00 Pulse Ox 95 07/16/21 16:00 Intake & Output 07/15/21 07/16/21 07/16/21 18:59 06:59 18:59 Intake Total 524.356 108.924 492.001 Output Total 2375 1000 575 Balance -1850.644 -891.076 -82.999 Weight 100.698 kg 84.5 kg Intake: Intake, IV Titration 166.356 108.924 132.001 Amount Heparin Sod,Pork in 0.45% 166.356 108.924 132.001 NaCl 25,000 unit In 0.45 % NaCl 1 250ml.bag @ 10 UNITS/KG/HR 10.07 mls/hr IV .Q24H [facility] Rx#: [id number] Oral 358 360 Output: Urine 2375 1000 575 Other: Voiding Method Diaper Diaper Indwelling Catheter Indwelling Catheter Indwelling Catheter # Bowel Movements 1 - Exam GENERAL EXAM: Alert, very pleasant, but a poor historian, 76-year-old white female, resting comfortably in bed, in emergency department, awaiting a bed on selective care unit, currently down to 2 L of oxygen, off BiPAP support, her pulse ox on 2 L of oxygen is 95% comfortable in no apparent distress. HEAD: Normocephalic/atraumatic. EYES: Normal reaction of pupils, equal size. Conjunctiva pink, sclera white. NOSE: Clear with pink turbinates. THROAT: No erythema or exudates. NECK: No masses, no JVD, no thyroid enlargement, no adenopathy. CHEST: No chest wall deformity. Symmetrical expansion. LUNGS: Equal air entry with mild bibasilar crackles CVS: Regular rate and rhythm, normal S1 and S2, no gallops, no murmurs, no rubs ABDOMEN: Soft, nontender. No hepatosplenomegaly, normal bowel sounds, no guarding or rigidity. EXTREMITIES: No clubbing, no edema, no cyanosis, 2+ pulses and upper and lower extremities. MUSCULOSKELETAL: Muscle strength and tone normal. SPINE: No scoliosis or deformity SKIN: No rashes CENTRAL NERVOUS SYSTEM: Alert and oriented -3. No focal deficits, tone is normal in all 4 extremities. PSYCHIATRIC: Alert and oriented -3. Appropriate affect. Intact judgment and insight. - Labs CBC & Chem 7: 07/15/21 08:19 07/16/21 07:40 Labs: Abnormal Lab Results - Last 24 Hours (Table) 07/16/21 07/16/21 07/16/21 Range/Units 07:40 07:40 16:45 PT 12.7 H (9.0-12.0) sec INR 1.2 H (<1.2) APTT 77.7 H 57.8 H (22.0-30.0) sec Chloride 97 L (98-107) mmol/L Carbon Dioxide 40 H (22-30) mmol/L BUN 33 H (7-17) mg/dL Creatinine 1.31 H (0.52-1.04) mg/dL Calcium 11.5 H (8.4-10.2) mg/dL Microbiology - Last 24 Hours (Table) 07/13/21 09:35 Blood Culture - Preliminary Blood No Growth after 72 hours 07/13/21 09:30 Blood Culture - Preliminary Blood No Growth after 72 hours Assessment and Plan Plan: Assessment: #1. Acute on chronic hypoxic and hypercapnic respiratory failure related to acute exacerbation of diastolic CHF. COVID19 PCR was negative #2. Altered mental status, improved with BiPAP support, related to acute hypoxic and hypercapnic respiratory failure, currently much more awake and alert, seems to be back to baseline off BiPAP support and on 2 L of oxygen #3. Acute on chronic CHF exacerbation with diastolic dysfunction #4. History of mechanical aortic valve replacement on Coumadin with subtherapeutic INR, currently on heparin infusion #5. History of atrial fibrillation #6. Previous history of CVA #7. Chronic kidney disease stage IV #8. Previous history of GI bleeding #9. History of abdominal aortic dissection and repair #10. History of a descending and ascending aortic aneurysm #11. History of biventricular pacemaker placement Plan: Clinically patient has remained stable over last 24 hours Has not required BiPAP support FiO2 is at 2 L She continues on Lasix and cardiology is dosing Her Lasix has been cut back to once daily Continue heparin infusion until INR becomes therapeutic Pulmonary service will sign off and follow on as-needed basis Diuretics per cardiology service I performed a history & physical examination of the patient and discussed their management with my nurse practitioner, Cecilia Gonzalez. I reviewed the nurse practitioner's note and agree with the documented findings and plan of care. Lung sounds are positive for dim breath sounds throughout the lung melgar. The findings and the impression was discussed with the patient. I attest to the documentation by the nurse practitioner. Time with Patient: Less than 30
[2021-07-16] MEDS ORDERED: WARFARIN 7.5 MG TAB PO ONE (18:00)
[2021-07-16] MEDS ORDERED: MAGNESIUM HYDROXIDE 2,400 MG/10 ML CUP PO STA (18:23)
--- NOTE | 2021-07-16 18:25 | P.PN ---
Progress Note - Text Progress Note Date: 07/16/21 This is an addendum to the note on 07/16/2021 Patient was complaining of abdominal discomfort, she was reevaluated this evening, she is complaining of abdominal cramps she states that she hasn't had a bowel movement in 4 days Patient will be given 1 dose of milk of magnesia, she will also be started on Colace 100 mg by mouth twice daily Continue with Protonix 40 mg by mouth daily Will reevaluate in a.m.
[2021-07-16] MEDS: DOCUSATE 100 MG CAP PO SCH (20:02)
[2021-07-17] MEDS: HEPARIN SOD,PORK IN 0.45% NACL 25,000 UNIT in 0.45% NACL 1 250ML.BAG IV SCH (03:49)
[2021-07-17] MEDS: carvediloL 6.25 MG TAB PO SCH ×2 (06:57→17:28)
[2021-07-17] MEDS: AMIODARONE 100 MG TAB PO SCH (08:28)
[2021-07-17] MEDS: DOCUSATE 100 MG CAP PO SCH ×2 (08:28→20:12)
[2021-07-17] MEDS: PANTOPRAZOLE 40 MG TABLET PO SCH (08:28)
[2021-07-17] MEDS: ASPIRIN 81 MG PO SCH (08:28)
[2021-07-17] MEDS ORDERED: FUROSEMIDE 10 MG/ML 4 ML VIAL IV SCH (09:00)
[2021-07-17 10:32] LABS: INR 1.2 (<1.2); Prothrombin Time 12.2 sec (9.0-12.0)
[2021-07-17 10:46] LABS: Albumin 2.9 g/dL (3.5-5.0); Calcium 11.8 mg/dL (8.4-10.2); Total Bilirubin 0.8 mg/dL (0.2-1.3); Total Protein 6.8 g/dL (6.3-8.2)
[2021-07-17 10:52] LABS: Anisocytosis Slight; Basophils % (A) 1 %; Eosinophils # (A) 0.2 k/uL (0-0.7); Eosinophils % (A) 4 %; HCT 30.9 % (34.0-46.0); Hypochromasia Marked; Lymphocytes # (A) 0.6 k/uL (1.0-4.8); Lymphocytes % (A) 12 %; MCHC 29.1 g/dL (31.0-37.0); MCV 89.4 fL (80.0-100.0); Mean Platelet Volume 9.4; Monocytes # (A) 0.5 k/uL (0-1.0); Monocytes % (A) 9 %; Neutrophils # (A) 3.4 k/uL (1.3-7.7); Neutrophils % (A) 71 %; Platelet Count 149 k/uL (150-450); RBC 3.46 m/uL (3.80-5.40); RDW 18.7 % (11.5-15.5); WBC 4.8 k/uL (3.8-10.6)
--- NOTE | 2021-07-17 13:01 | P.PN ---
Subjective This is a 76-year-old female with a past medical history of type A aortic dissection in 1998 and aortic aneursym s/p bentall procedure w replacement of arch and elephant trunk in 2011, and repair in 2012, aortic stenosis status post aortic valve replacement in 1998, hypertension, dyslipidemia, left bundle-branch block, persistent atrial fibrillation, chronic diastolic heart failure, status post dual chamber pacemaker implantation in 2014. She follows in the office with Dr. Helton. We have been consulted for congestive heart failure. Patient seen at bedside, no acute distress. Her shortness of breath has improved. 95% on 2L nasal cannula. She denies any chest pain. Patient is maintained on IV Lasix 40mg daily. With 1575mL urine output over the past 24 hours. Echocardiogram revealed EF 5055%, moderate to severe mitral regurgitati on, moderate tricuspid regurgitation, moderate to severe pulmonary hypertension with an RVSP of 53 mmHg. She was only given 7.5mg coumadin last night. She is currently maintained on IV Lasix 40 mg daily, IV heparin, aspirin 81 mg daily, carvedilol 6.25 mg twice a day, Coumadin Labs, INR 1.2, sCr 1.33, sodium 136, potassium 4.0, BUN 30 VITALS: Reviewed GENERAL: In no acute distress. NECK: Supple without JVD or thyromegaly. LUNGS: Breath sounds with mild crackles, diminished auscultation bilaterally. Respiration equal and unlabored. HEART: Regular rate and rhythm without murmurs, rubs or gallops. S1 and S2 heard. EXTREMITIES: Normal range of motion, 1+ bilateral lower extremity edema. No clubbing or cyanosis. Peripheral pulses intact. ASSESSMENT Acute exacerbation of chronic diastolic heart failure Status post aortic valve replacement Sick sinus syndrome status post permanent pacemaker History of permanent atrial fibrillation on coumadin Subtherapeutic anticoagulation for mechanical valve History of AAA s/p repair Hypertenion Dyslipidemia PLAN We will given IV lasix 40mg today, transition to PO tomorrow Monitor renal function and electrolytes, I/Os, daily weights Continue home amiodarone and carvedilol Continue IV heparin bridge to coumadin. Will given 7.5mg coumadin tonight Further recommendations based on clinical course Nurse Practitioner note has been reviewed, I agree with a documented findings and plan of care. Patient was seen and examined. Objective - Vital Signs Vital signs: Vital Signs Temp 98.1 F 07/17/21 08:00 Pulse 62 07/17/21 08:00 Resp 17 07/17/21 08:00 BP 117/58 07/17/21 08:00 Pulse Ox 100 07/17/21 08:43 Intake & Output 07/16/21 07/17/21 07/17/21 18:59 06:59 18:59 Intake Total 492.001 117.999 420 Output Total 575 1000 Balance -82.999 117.999 -580 Intake: Intake, IV Titration 132.001 117.999 Amount Heparin Sod,Pork in 0.45% 132.001 117.999 NaCl 25,000 unit In 0.45 % NaCl 1 250ml.bag @ 10 UNITS/KG/HR 10.07 mls/hr IV .Q24H [facility] Rx#: [id number] Oral 360 420 Output: Urine 575 1000 Other: Voiding Method Indwelling Catheter Indwelling Catheter Indwelling Catheter - Labs CBC & Chem 7: 07/17/21 09:28 07/17/21 09:28 Labs: Abnormal Lab Results - Last 24 Hours (Table) 07/16/21 07/17/21 07/17/21 Range/Units 16:45 09:28 09:28 RBC 3.46 L (3.80-5.40) m/uL Hgb 9.0 L (11.4-16.0) gm/dL Hct 30.9 L (34.0-46.0) % MCHC 29.1 L (31.0-37.0) g/dL RDW 18.7 H (11.5-15.5) % Plt Count 149 L (150-450) k/uL Lymphocytes # 0.6 L (1.0-4.8) k/uL PT 12.2 H (9.0-12.0) sec INR 1.2 H (<1.2) APTT 57.8 H 55.0 H (22.0-30.0) sec Sodium (137-145) mmol/L Chloride (98-107) mmol/L Carbon Dioxide (22-30) mmol/L BUN (7-17) mg/dL Creatinine (0.52-1.04) mg/dL Glucose (74-99) mg/dL Calcium (8.4-10.2) mg/dL Albumin (3.5-5.0) g/dL 07/17/21 Range/Units 09:28 RBC (3.80-5.40) m/uL Hgb (11.4-16.0) gm/dL Hct (34.0-46.0) % MCHC (31.0-37.0) g/dL RDW (11.5-15.5) % Plt Count (150-450) k/uL Lymphocytes # (1.0-4.8) k/uL PT (9.0-12.0) sec INR (<1.2) APTT (22.0-30.0) sec Sodium 136 L (137-145) mmol/L Chloride 96 L (98-107) mmol/L Carbon Dioxide 39 H (22-30) mmol/L BUN 30 H (7-17) mg/dL Creatinine 1.33 H (0.52-1.04) mg/dL Glucose 105 H (74-99) mg/dL Calcium 11.8 H (8.4-10.2) mg/dL Albumin 2.9 L (3.5-5.0) g/dL Microbiology - Last 24 Hours (Table) 07/13/21 09:35 Blood Culture - Preliminary Blood No Growth after 96 hours 07/13/21 09:30 Blood Culture - Preliminary Blood No Growth after 96 hours
[2021-07-17 13:05] VITALS: BMI 27.5
--- NOTE | 2021-07-17 17:03 | P.PN ---
Subjective Progress Note Date: 07/17/21 This is a 76-year-old female patient who was sent from [facility] facility with concerns of altered mental status changes. Patient has a past medical history of CHF with recent hospital admission for CHF, aortic valve replacement, chronic hypoxic respiratory failure maintained on 2 L nasal cannula and left-sided stroke. Patient was found lethargic by facility when EMS arrived patient was found to be in the 70s and 60s with pulse ox. Patient was transferred to the ER and oxygen was placed and patient began to wake up. Head CT was completed showing degenerative and nonspecific white matter change with no evidence of acute hemorrhage or mass effect. Chest x-ray performed showing suspect CHF favored over diffuse pneumonia correlate for pulmonary arterial hypertension. COVID-19 negative. ABGs performed showing a pH of 7.27, pCO2 of 94, pO2 of 258 and HCO3 level 43. . BNP elevated at 9540. INR subtherapeutic at 1.3 started on heparin gtt patient started on IV Lasix. Pulmonary service is consulted. Cardiology services consulted. 2-D echo has been ordered repeat chest x-ray ordered. Patient started on BiPAP. Patient currently resting in bed does wake up to name. On 07/14/2021 patient was seen and examined on the medical floor she is alert and oriented 3 in no apparent distress she is complaining of fatigue and generalized weakness and chest tightness otherwise she denies any complaints at this time there is no fever or chills no headache or dizziness no cough no nausea or vomiting no abdominal pain no diarrhea no blood in the stools no burning with urination no frequency or urgency and no hematuria On 07/15/2021 patient was seen and examined on the medical floor she is alert and oriented 3 in no apparent distress there is no fever or chills no headache or dizziness no chest pain no shortness of breath no cough no nausea or vomiting no abdominal pain no diarrhea no blood in the stools no burning with urination no frequency or urgency and no hematuria. Patient is still complaining of generalized weakness otherwise she denies any complaints 07/16/2021 patient is alert and oriented 3. Patient remains on IV Lasix. Patient also remains on IV heparin while bridging on Coumadin. Pharmacy to dose Coumadin ordered. Patient reports occasional shortness of breath but today feels improved. Patient denies chest pain. Patient denies nausea vomiting or diarrhea. Patient denies any urinary burning or frequency. On 07/17/2021 patient was seen and examined on the telemetry floor she is alert and oriented 3 in no apparent distress she is sitting up in a chair, she is reporting improvement in her shortness of breath, there is no fever or chills no headache or dizziness no chest pain no cough no nausea or vomiting no abdominal pain no diarrhea no blood in the stools no burning with urination no frequency or urgency and no hematuria. INR remains low at 1.2, patient is maintained on IV heparin for Coumadin bridging due to artificial valve. Pharmacy is following for Coumadin dosing. Objective - Vital Signs Vital signs: Vital Signs Temp 98.1 F 07/17/21 08:00 Pulse 62 07/17/21 08:00 Resp 17 07/17/21 08:00 BP 117/58 07/17/21 08:00 Pulse Ox 100 07/17/21 08:43 Intake & Output 07/16/21 07/17/21 07/17/21 18:59 06:59 18:59 Intake Total 492.001 117.999 180 Output Total 575 Balance -82.999 117.999 180 Intake: Intake, IV Titration 132.001 117.999 Amount Heparin Sod,Pork in 0.45% 132.001 117.999 NaCl 25,000 unit In 0.45 % NaCl 1 250ml.bag @ 10 UNITS/KG/HR 10.07 mls/hr IV .Q24H [facility] Rx#: [id number] Oral 360 180 Output: Urine 575 Other: Voiding Method Indwelling Catheter Indwelling Catheter Indwelling Catheter - Exam In general patient is alert and oriented 3 in no apparent distress Head normocephalic and atraumatic Neck supple no JVD no goiter Lungs diminished bilaterally Heart regular rate and rhythm S1-S2, no rub or gallop Abdomen is soft nontender nondistended positive bowel sounds no hepatosplenomegaly Extremities no edema Neuro no gross focal deficits - Labs CBC & Chem 7: 07/17/21 09:28 07/17/21 09:28 Labs: Abnormal Lab Results - Last 24 Hours (Table) 07/16/21 Range/Units 16:45 APTT 57.8 H (22.0-30.0) sec Microbiology - Last 24 Hours (Table) 07/13/21 09:35 Blood Culture - Preliminary Blood No Growth after 72 hours 07/13/21 09:30 Blood Culture - Preliminary Blood No Growth after 72 hours Assessment and Plan Assessment: Altered mental status changes. Head CT negative acute on chronic respiratory failure acute on chronic CHF exacerbation. History of CHF with cardiomyopathy History mechanical aortic valve replacement maintained on Coumadin INR subtherapetic History of atrial fibrillation History of stroke History of chronic kidney disease Previous history of GI bleed DVT prophylaxis heparin drip Pulmonary and cardiology services following Patient maintained on IV Lasix Currently on IV heparin bridging over to Coumadin
[2021-07-17] MEDS ORDERED: WARFARIN 7.5 MG TAB PO ONE (18:00)
[2021-07-18] MEDS: HEPARIN SOD,PORK IN 0.45% NACL 25,000 UNIT in 0.45% NACL 1 250ML.BAG IV SCH (03:43)
[2021-07-18] MEDS: carvediloL 6.25 MG TAB PO SCH ×2 (06:16→17:15)
[2021-07-18 09:03] LABS: INR 1.6 (<1.2)
[2021-07-18] MEDS: AMIODARONE 100 MG TAB PO SCH (09:37)
[2021-07-18] MEDS: PANTOPRAZOLE 40 MG TABLET PO SCH (09:37)
[2021-07-18] MEDS: DOCUSATE 100 MG CAP PO SCH ×2 (09:37→21:59)
[2021-07-18] MEDS: FUROSEMIDE 40 MG TAB PO SCH ×2 (09:37→17:14)
[2021-07-18] MEDS: ASPIRIN 81 MG PO SCH (09:37)
--- NOTE | 2021-07-18 09:39 | P.PN ---
Subjective Progress Note Date: 07/18/21 This is a 76-year-old female patient who was sent from [facility] facility with concerns of altered mental status changes. Patient has a past medical history of CHF with recent hospital admission for CHF, aortic valve replacement, chronic hypoxic respiratory failure maintained on 2 L nasal cannula and left-sided stroke. Patient was found lethargic by facility when EMS arrived patient was found to be in the 70s and 60s with pulse ox. Patient was transferred to the ER and oxygen was placed and patient began to wake up. Head CT was completed showing degenerative and nonspecific white matter change with no evidence of acute hemorrhage or mass effect. Chest x-ray performed showing suspect CHF favored over diffuse pneumonia correlate for pulmonary arterial hypertension. COVID-19 negative. ABGs performed showing a pH of 7.27, pCO2 of 94, pO2 of 258 and HCO3 level 43. . BNP elevated at 9540. INR subtherapeutic at 1.3 started on heparin gtt patient started on IV Lasix. Pulmonary service is consulted. Cardiology services consulted. 2-D echo has been ordered repeat chest x-ray ordered. Patient started on BiPAP. Patient currently resting in bed does wake up to name. On 07/14/2021 patient was seen and examined on the medical floor she is alert and oriented 3 in no apparent distress she is complaining of fatigue and generalized weakness and chest tightness otherwise she denies any complaints at this time there is no fever or chills no headache or dizziness no cough no nausea or vomiting no abdominal pain no diarrhea no blood in the stools no burning with urination no frequency or urgency and no hematuria On 07/15/2021 patient was seen and examined on the medical floor she is alert and oriented 3 in no apparent distress there is no fever or chills no headache or dizziness no chest pain no shortness of breath no cough no nausea or vomiting no abdominal pain no diarrhea no blood in the stools no burning with urination no frequency or urgency and no hematuria. Patient is still complaining of generalized weakness otherwise she denies any complaints 07/16/2021 patient is alert and oriented 3. Patient remains on IV Lasix. Patient also remains on IV heparin while bridging on Coumadin. Pharmacy to dose Coumadin ordered. Patient reports occasional shortness of breath but today feels improved. Patient denies chest pain. Patient denies nausea vomiting or diarrhea. Patient denies any urinary burning or frequency. On 07/17/2021 patient was seen and examined on the telemetry floor she is alert and oriented 3 in no apparent distress she is sitting up in a chair, she is reporting improvement in her shortness of breath, there is no fever or chills no headache or dizziness no chest pain no cough no nausea or vomiting no abdominal pain no diarrhea no blood in the stools no burning with urination no frequency or urgency and no hematuria. INR remains low at 1.2, patient is maintained on IV heparin for Coumadin bridging due to artificial valve. Pharmacy is following for Coumadin dosing. On 07/18/2021 patient's alert and oriented 3 resting comfortably in bed patient has been transitioned to oral Lasix. Patient remains on IV heparin while bridging over to Coumadin. INR today 1.6. Pharmacy to dose Coumadin. Patient did receive 1.75 Coumadin yesterday. At this time patient denies chest pain or shortness breath. Patient denies nausea vomiting or diarrhea. Patient denies any urinary burning or frequency Objective - Vital Signs Vital signs: Vital Signs Temp 98 F 07/18/21 03:59 Pulse 60 07/18/21 03:59 Resp 16 07/18/21 03:59 BP 130/69 07/18/21 03:59 Pulse Ox 98 07/18/21 03:59 Intake & Output 07/17/21 07/18/21 07/18/21 18:59 06:59 18:59 Intake Total 660 456.606 360 Output Total 1450 350 Balance -790 106.606 360 Weight 84.5 kg Intake: Intake, IV Titration 216.606 Amount Heparin Sod,Pork in 0.45% 216.606 NaCl 25,000 unit In 0.45 % NaCl 1 250ml.bag @ 10 UNITS/KG/HR 10.07 mls/hr IV .Q24H [facility] Rx#: [id number] Oral 660 240 360 Output: Urine 1450 350 Other: Voiding Method Indwelling Catheter Indwelling Catheter # Bowel Movements 1 - Exam In general patient is alert and oriented 3 in no apparent distress Head normocephalic and atraumatic Neck supple no JVD no goiter Lungs diminished bilaterally Heart regular rate and rhythm S1-S2, no rub or gallop Abdomen is soft nontender nondistended positive bowel sounds no hepatosplenomegaly Extremities no edema Neuro no gross focal deficits - Labs CBC & Chem 7: 07/17/21 09:28 07/17/21 09:28 Labs: Abnormal Lab Results - Last 24 Hours (Table) 07/17/21 07/17/21 07/17/21 Range/Units 09:28 09:28 09:28 RBC 3.46 L (3.80-5.40) m/uL Hgb 9.0 L (11.4-16.0) gm/dL Hct 30.9 L (34.0-46.0) % MCHC 29.1 L (31.0-37.0) g/dL RDW 18.7 H (11.5-15.5) % Plt Count 149 L (150-450) k/uL Lymphocytes # 0.6 L (1.0-4.8) k/uL PT 12.2 H (9.0-12.0) sec INR 1.2 H (<1.2) APTT 55.0 H (22.0-30.0) sec Sodium 136 L (137-145) mmol/L Chloride 96 L (98-107) mmol/L Carbon Dioxide 39 H (22-30) mmol/L BUN 30 H (7-17) mg/dL Creatinine 1.33 H (0.52-1.04) mg/dL Glucose 105 H (74-99) mg/dL Calcium 11.8 H (8.4-10.2) mg/dL Albumin 2.9 L (3.5-5.0) g/dL 07/18/21 Range/Units 08:05 RBC (3.80-5.40) m/uL Hgb (11.4-16.0) gm/dL Hct (34.0-46.0) % MCHC (31.0-37.0) g/dL RDW (11.5-15.5) % Plt Count (150-450) k/uL Lymphocytes # (1.0-4.8) k/uL PT 16.0 H (9.0-12.0) sec INR 1.6 H (<1.2) APTT 63.0 H (22.0-30.0) sec Sodium (137-145) mmol/L Chloride (98-107) mmol/L Carbon Dioxide (22-30) mmol/L BUN (7-17) mg/dL Creatinine (0.52-1.04) mg/dL Glucose (74-99) mg/dL Calcium (8.4-10.2) mg/dL Albumin (3.5-5.0) g/dL Microbiology - Last 24 Hours (Table) 07/13/21 09:35 Blood Culture - Preliminary Blood No Growth after 96 hours 07/13/21 09:30 Blood Culture - Preliminary Blood No Growth after 96 hours Assessment and Plan Assessment: Altered mental status changes. Head CT negative acute on chronic respiratory failure acute on chronic CHF exacerbation. History of CHF with cardiomyopathy History mechanical aortic valve replacement maintained on Coumadin INR subtherapetic History of atrial fibrillation History of stroke History of chronic kidney disease Previous history of GI bleed DVT prophylaxis heparin drip Pulmonary and cardiology services following Patient transitioned to by mouth Lasix Currently on IV heparin bridging over to Coumadin
[2021-07-18 10:05] LABS: Potassium 4.6 mmol/L (3.5-5.1)
--- NOTE | 2021-07-18 13:28 | P.PN ---
Subjective This is a 76-year-old female with a past medical history of type A aortic dissection in 1998 and aortic aneursym s/p bentall procedure w replacement of arch and elephant trunk in 2011, and repair in 2012, aortic stenosis status post aortic valve replacement in 1998, hypertension, dyslipidemia, left bundle-branch block, persistent atrial fibrillation, chronic diastolic heart failure, status post dual chamber pacemaker implantation in 2014. She follows in the office with Dr. Helton. We have been consulted for congestive heart failure. Patient seen at bedside, no acute distress. Her shortness of breath has slightly improved. She does state that sometimes she feels more short of breath in the afternoon. 95% on 2L nasal cannula. She denies any chest pain. Patient is maintained on PO Lasix 40mg BID. With 1800mL urine output over the past 24 hours. Echocardiogram revealed EF 5055%, moderate to severe mitral regurgitation, moderate tricuspid regurgitation, moderate to severe pulmonary hypertension with an RVSP of 53 mmHg. She was only given 7.5mg coumadin last night. She is currently maintained on PO Lasix 40mg BID, IV heparin, aspirin 81 mg daily, carvedilol 6.25 mg twice a day, Coumadin Labs, INR 1.6, sodium 140, potassium 4.6, BUN 30, serum creatinine 1.3 VITALS: Reviewed GENERAL: In no acute distress. NECK: Supple without JVD or thyromegaly. LUNGS: Breath sounds with mild crackles, diminished auscultation bilaterally. Respiration equal and unlabored. HEART: Regular rate and rhythm without murmurs, rubs or gallops. S1 and S2 heard. EXTREMITIES: Normal range of motion, 1+ bilateral lower extremity edema. No clubbing or cyanosis. Peripheral pulses intact. ASSESSMENT Acute exacerbation of chronic diastolic heart failure Status post aortic valve replacement Sick sinus syndrome status post permanent pacemaker History of permanent atrial fibrillation on coumadin Subtherapeutic anticoagulation for mechanical valve History of AAA s/p repair Hypertenion Dyslipidemia PLAN Lasix transitionted to PO Monitor renal function and electrolytes, I/Os, daily weights Continue home amiodarone and carvedilol Continue IV heparin bridge to coumadin. We recommend 7.5mg coumadin tonight Further recommendations based on clinical course Nurse Practitioner note has been reviewed, I agree with a documented findings and plan of care. Patient was seen and examined. Objective - Vital Signs Vital signs: Vital Signs Temp 98.1 F 07/18/21 08:00 Pulse 60 07/18/21 08:00 Resp 20 07/18/21 08:00 BP 118/63 07/18/21 08:00 Pulse Ox 97 07/18/21 08:00 Intake & Output 07/17/21 07/18/21 07/18/21 18:59 06:59 18:59 Intake Total 660 456.606 360 Output Total 1450 350 200 Balance -790 106.606 160 Weight 84.5 kg Intake: Intake, IV Titration 216.606 Amount Heparin Sod,Pork in 0.45% 216.606 NaCl 25,000 unit In 0.45 % NaCl 1 250ml.bag @ 10 UNITS/KG/HR 10.07 mls/hr IV .Q24H [facility] Rx#: [id number] Oral 660 240 360 Output: Urine 1450 350 200 Other: Voiding Method Indwelling Catheter Indwelling Catheter # Bowel Movements 1 - Labs CBC & Chem 7: 07/17/21 09:28 07/18/21 08:05 Labs: Abnormal Lab Results - Last 24 Hours (Table) 07/18/21 07/18/21 Range/Units 08:05 08:05 PT 16.0 H (9.0-12.0) sec INR 1.6 H (<1.2) APTT 63.0 H (22.0-30.0) sec Carbon Dioxide 36 H (22-30) mmol/L BUN 30 H (7-17) mg/dL Creatinine 1.30 H (0.52-1.04) mg/dL Glucose 109 H (74-99) mg/dL Calcium 13.0 H (8.4-10.2) mg/dL Microbiology - Last 24 Hours (Table) 07/13/21 09:30 Blood Culture - Preliminary Blood No Growth after 120 hours 07/13/21 09:35 Blood Culture - Preliminary Blood No Growth after 120 hours
[2021-07-18] MEDS ORDERED: WARFARIN 7.5 MG TAB PO ONE (18:00)
[2021-07-18] MEDS ORDERED: WARFARIN 5 MG TAB PO ONE (18:00)
[2021-07-19] MEDS: carvediloL 6.25 MG TAB PO SCH ×2 (06:05→17:09)
[2021-07-19] MEDS: FUROSEMIDE 40 MG TAB PO SCH ×2 (09:09→17:09)
[2021-07-19] MEDS: AMIODARONE 100 MG TAB PO SCH (09:09)
[2021-07-19] MEDS: ASPIRIN 81 MG PO SCH (09:09)
[2021-07-19] MEDS: PANTOPRAZOLE 40 MG TABLET PO SCH (09:09)
[2021-07-19] MEDS: DOCUSATE 100 MG CAP PO SCH ×2 (09:09→20:16)
[2021-07-19 09:27] LABS: Anisocytosis Slight; Basophils % (A) 1 %; Eosinophils # (A) 0.2 k/uL (0-0.7); Eosinophils % (A) 5 %; HCT 30.3 % (34.0-46.0); HGB 8.6 gm/dL (11.4-16.0); Hypochromasia Marked; Lymphocytes # (A) 0.5 k/uL (1.0-4.8); Lymphocytes % (A) 11 %; MCH 25.9 pg (25.0-35.0); MCHC 28.4 g/dL (31.0-37.0); MCV 91.3 fL (80.0-100.0); Mean Platelet Volume 9.7; Monocytes # (A) 0.4 k/uL (0-1.0); Monocytes % (A) 7 %; Neutrophils # (A) 3.5 k/uL (1.3-7.7); Neutrophils % (A) 74 %; Platelet Count 143 k/uL (150-450); RBC 3.32 m/uL (3.80-5.40); RDW 18.9 % (11.5-15.5); WBC 4.7 k/uL (3.8-10.6)
[2021-07-19 09:28] LABS: INR 2.4 (<1.2); Partial Thromboplastin Time 56.9 sec (22.0-30.0)
[2021-07-19 10:15] LABS: Albumin 3.1 g/dL (3.5-5.0); Calcium 12.1 mg/dL (8.4-10.2); Potassium 3.8 mmol/L (3.5-5.1); Total Bilirubin 0.7 mg/dL (0.2-1.3); Total Protein 6.6 g/dL (6.3-8.2)
--- NOTE | 2021-07-19 10:28 | P.PN ---
Subjective Progress Note Date: 07/19/21 This is a 76-year-old female patient who was sent from [facility] facility with concerns of altered mental status changes. Patient has a past medical history of CHF with recent hospital admission for CHF, aortic valve replacement, chronic hypoxic respiratory failure maintained on 2 L nasal cannula and left-sided stroke. Patient was found lethargic by facility when EMS arrived patient was found to be in the 70s and 60s with pulse ox. Patient was transferred to the ER and oxygen was placed and patient began to wake up. Head CT was completed showing degenerative and nonspecific white matter change with no evidence of acute hemorrhage or mass effect. Chest x-ray performed showing suspect CHF favored over diffuse pneumonia correlate for pulmonary arterial hypertension. COVID-19 negative. ABGs performed showing a pH of 7.27, pCO2 of 94, pO2 of 258 and HCO3 level 43. . BNP elevated at 9540. INR subtherapeutic at 1.3 started on heparin gtt patient started on IV Lasix. Pulmonary service is consulted. Cardiology services consulted. 2-D echo has been ordered repeat chest x-ray ordered. Patient started on BiPAP. Patient currently resting in bed does wake up to name. On 07/14/2021 patient was seen and examined on the medical floor she is alert and oriented 3 in no apparent distress she is complaining of fatigue and generalized weakness and chest tightness otherwise she denies any complaints at this time there is no fever or chills no headache or dizziness no cough no nausea or vomiting no abdominal pain no diarrhea no blood in the stools no burning with urination no frequency or urgency and no hematuria On 07/15/2021 patient was seen and examined on the medical floor she is alert and oriented 3 in no apparent distress there is no fever or chills no headache or dizziness no chest pain no shortness of breath no cough no nausea or vomiting no abdominal pain no diarrhea no blood in the stools no burning with urination no frequency or urgency and no hematuria. Patient is still complaining of generalized weakness otherwise she denies any complaints 07/16/2021 patient is alert and oriented 3. Patient remains on IV Lasix. Patient also remains on IV heparin while bridging on Coumadin. Pharmacy to dose Coumadin ordered. Patient reports occasional shortness of breath but today feels improved. Patient denies chest pain. Patient denies nausea vomiting or diarrhea. Patient denies any urinary burning or frequency. On 07/17/2021 patient was seen and examined on the telemetry floor she is alert and oriented 3 in no apparent distress she is sitting up in a chair, she is reporting improvement in her shortness of breath, there is no fever or chills no headache or dizziness no chest pain no cough no nausea or vomiting no abdominal pain no diarrhea no blood in the stools no burning with urination no frequency or urgency and no hematuria. INR remains low at 1.2, patient is maintained on IV heparin for Coumadin bridging due to artificial valve. Pharmacy is following for Coumadin dosing. On 07/18/2021 patient's alert and oriented 3 resting comfortably in bed patient has been transitioned to oral Lasix. Patient remains on IV heparin while bridging over to Coumadin. INR today 1.6. Pharmacy to dose Coumadin. Patient did receive 1.75 Coumadin yesterday. At this time patient denies chest pain or shortness breath. Patient denies nausea vomiting or diarrhea. Patient denies any urinary burning or frequency On 07/20/2021 patient is alert and oriented 3 resting comfortably in bed. INR today 2.4. Goal 2.5-3.5 due to mechanical valve. Repeat labs ordered for a.m. Discharge planning back to [facility] in progress. This time patient denies chest pain or shortness breath. Patient denies nausea vomiting or diarrhea. Patient denies any urinary burning or frequency Objective - Vital Signs Vital signs: Vital Signs Temp 97.7 F 07/19/21 08:00 Pulse 60 07/19/21 08:00 Resp 18 07/19/21 08:00 BP 135/66 07/19/21 08:00 Pulse Ox 98 07/19/21 08:00 Intake & Output 07/18/21 07/19/21 07/19/21 18:59 06:59 18:59 Intake Total 360 152.107 Output Total 200 925 Balance 160 -772.893 Intake: Intake, IV Titration 152.107 Amount Heparin Sod,Pork in 0.45% 152.107 NaCl 25,000 unit In 0.45 % NaCl 1 250ml.bag @ 10 UNITS/KG/HR 10.07 mls/hr IV .Q24H [facility] Rx#: [id number] Oral 360 Output: Urine 200 925 Other: Voiding Method Indwelling Catheter Indwelling Catheter - Exam In general patient is alert and oriented 3 in no apparent distress Head normocephalic and atraumatic Neck supple no JVD no goiter Lungs diminished bilaterally Heart regular rate and rhythm S1-S2, no rub or gallop Abdomen is soft nontender nondistended positive bowel sounds no hepatosplenomegaly Extremities no edema Neuro no gross focal deficits - Labs CBC & Chem 7: 07/19/21 08:27 07/19/21 08:27 Labs: Abnormal Lab Results - Last 24 Hours (Table) 07/19/21 07/19/21 07/19/21 Range/Units 08:27 08:27 08:27 RBC 3.32 L (3.80-5.40) m/uL Hgb 8.6 L (11.4-16.0) gm/dL Hct 30.3 L (34.0-46.0) % MCHC 28.4 L (31.0-37.0) g/dL RDW 18.9 H (11.5-15.5) % Plt Count 143 L (150-450) k/uL Lymphocytes # 0.5 L (1.0-4.8) k/uL PT 24.0 H (9.0-12.0) sec INR 2.4 H (<1.2) APTT 56.9 H (22.0-30.0) sec Carbon Dioxide 31 H (22-30) mmol/L BUN 31 H (7-17) mg/dL Creatinine 1.41 H (0.52-1.04) mg/dL Glucose 181 H (74-99) mg/dL Calcium 12.1 H (8.4-10.2) mg/dL Albumin 3.1 L (3.5-5.0) g/dL Microbiology - Last 24 Hours (Table) 07/13/21 09:30 Blood Culture - Preliminary Blood No Growth after 120 hours 07/13/21 09:35 Blood Culture - Preliminary Blood No Growth after 120 hours Assessment and Plan Assessment: Altered mental status changes. Head CT negative acute on chronic respiratory failure acute on chronic CHF exacerbation. History of CHF with cardiomyopathy History mechanical aortic valve replacement maintained on Coumadin INR subtherapetic History of atrial fibrillation History of stroke History of chronic kidney disease Previous history of GI bleed DVT prophylaxis heparin drip Pulmonary and cardiology services following Patient transitioned to by mouth Lasix Currently on IV heparin bridging over to Coumadin Socail Work services following for discharge planning back to [facility] facility
--- NOTE | 2021-07-19 14:28 | P.PN ---
Subjective Progress Note Date: 07/19/21 This is a 76-year-old female with a past medical history of type A aortic dissection in 1998 and aortic aneursym s/p bentall procedure w replacement of arch and elephant trunk in 2011, and repair in 2012, aortic stenosis status post aortic valve replacement in 1998, hypertension, dyslipidemia, left bundle-branch block, persistent atrial fibrillation, chronic diastolic heart failure, status post dual chamber pacemaker implantation in 2014. She follows in the office with Dr. Helton. We have been consulted for congestive heart failure. Patient seen today at the bedside resting with no signs of acute distress she reports her shortness of breath has improved. She remains on 2 L nasal cannula with an oxygen saturation of 95. She denies chest pain, or palpitations. Patient is maintained on PO Lasix 40mg BID. With 1275mL urine output since midnight. Continue to monitor BUN and creatinine creatinine slightly elevated today at 1.41. Patient is being bridged from heparin drip to Coumadin. Pat ient's INR is 2.4 today Will stop heparin drip and patient will receive 5 mg of Coumadin this evening. Objective - Vital Signs Vital signs: Vital Signs Temp 97.7 F 07/19/21 08:00 Pulse 60 07/19/21 12:00 Resp 18 07/19/21 13:45 BP 149/64 07/19/21 12:00 Pulse Ox 95 07/19/21 12:00 Intake & Output 07/18/21 07/19/21 07/19/21 18:59 06:59 18:59 Intake Total 360 152.107 118 Output Total 200 925 350 Balance 160 -772.893 -232 Intake: Intake, IV Titration 152.107 Amount Heparin Sod,Pork in 0.45% 152.107 NaCl 25,000 unit In 0.45 % NaCl 1 250ml.bag @ 10 UNITS/KG/HR 10.07 mls/hr IV .Q24H [facility] Rx#: [id number] Oral 360 118 Output: Urine 200 925 350 Other: Voiding Method Indwelling Catheter Indwelling Catheter Indwelling Catheter - Exam VITALS: Reviewed GENERAL: In no acute distress. NECK: Supple without JVD or thyromegaly. LUNGS: Breath sounds with mild crackles, diminished auscultation bilaterally. Respiration equal and unlabored. HEART: Regular rate and rhythm without murmurs, rubs or gallops. S1 and S2 heard. EXTREMITIES: Normal range of motion, 1+ bilateral lower extremity edema. No clubbing or cyanosis. Peripheral pulses intact. - Labs CBC & Chem 7: 07/19/21 08:27 07/19/21 08:27 Labs: Abnormal Lab Results - Last 24 Hours (Table) 07/19/21 07/19/21 07/19/21 Range/Units 08:27 08:27 08:27 RBC 3.32 L (3.80-5.40) m/uL Hgb 8.6 L (11.4-16.0) gm/dL Hct 30.3 L (34.0-46.0) % MCHC 28.4 L (31.0-37.0) g/dL RDW 18.9 H (11.5-15.5) % Plt Count 143 L (150-450) k/uL Lymphocytes # 0.5 L (1.0-4.8) k/uL PT 24.0 H (9.0-12.0) sec INR 2.4 H (<1.2) APTT 56.9 H (22.0-30.0) sec Carbon Dioxide 31 H (22-30) mmol/L BUN 31 H (7-17) mg/dL Creatinine 1.41 H (0.52-1.04) mg/dL Glucose 181 H (74-99) mg/dL Calcium 12.1 H (8.4-10.2) mg/dL Albumin 3.1 L (3.5-5.0) g/dL Microbiology - Last 24 Hours (Table) 07/13/21 09:35 Blood Culture - Final Blood No Growth after 144 hours 07/13/21 09:30 Blood Culture - Final Blood No Growth after 144 hours Assessment and Plan Assessment: Acute exacerbation of chronic diastolic heart failure Status post aortic valve replacement Sick sinus syndrome status post permanent pacemaker History of permanent atrial fibrillation on coumadin Subtherapeutic anticoagulation for mechanical valve History of AAA s/p repair Hypertenion Dyslipidemia Plan: Continue with by mouth Lasix Monitor renal function and electrolytes, I/Os, daily weights Continue home amiodarone and carvedilol Discontinue IV heparin, give 5 mg of Coumadin this evening Possible discharge home tomorrow Further recommendations based on clinical course Nurse Practitioner note has been reviewed, I agree with a documented findings and plan of care. Patient was seen and examined.
[2021-07-19] MEDS ORDERED: WARFARIN 5 MG TAB PO ONE (18:00)
[2021-07-20] MEDS: carvediloL 6.25 MG TAB PO SCH ×2 (06:11→17:30)
[2021-07-20] MEDS: DOCUSATE 100 MG CAP PO SCH ×3 (08:50→20:53)
[2021-07-20] MEDS: AMIODARONE 100 MG TAB PO SCH (08:50)
[2021-07-20] MEDS: FUROSEMIDE 40 MG TAB PO SCH ×2 (08:50→17:30)
[2021-07-20] MEDS: PANTOPRAZOLE 40 MG TABLET PO SCH (08:50)
[2021-07-20] MEDS: ASPIRIN 81 MG PO SCH (08:50)
[2021-07-20 10:53] LABS: Anisocytosis Slight; Basophils # (A) 0.1 k/uL (0-0.2); Basophils % (A) 1 %; Eosinophils # (A) 0.2 k/uL (0-0.7); Eosinophils % (A) 5 %; HCT 29.5 % (34.0-46.0); HGB 8.5 gm/dL (11.4-16.0); Hypochromasia Marked; Lymphocytes # (A) 0.4 k/uL (1.0-4.8); Lymphocytes % (A) 8 %; MCH 26.5 pg (25.0-35.0); MCHC 28.7 g/dL (31.0-37.0); Mean Platelet Volume 9.5; Monocytes # (A) 0.4 k/uL (0-1.0); Monocytes % (A) 8 %; Neutrophils # (A) 3.7 k/uL (1.3-7.7); Neutrophils % (A) 76 %; Platelet Count 149 k/uL (150-450); RBC 3.21 m/uL (3.80-5.40); RDW 18.9 % (11.5-15.5); WBC 4.9 k/uL (3.8-10.6)
[2021-07-20 11:08] LABS: INR 2.9 (<1.2); Prothrombin Time 28.7 sec (9.0-12.0)
[2021-07-20 11:11] LABS: Calcium 11.9 mg/dL (8.4-10.2); Potassium 4.1 mmol/L (3.5-5.1); Total Bilirubin 0.7 mg/dL (0.2-1.3); Total Protein 6.8 g/dL (6.3-8.2)
--- NOTE | 2021-07-20 14:09 | P.PN ---
Subjective Progress Note Date: 07/20/21 This is a 76-year-old female with a past medical history of type A aortic dissection in 1998 and aortic aneursym s/p bentall procedure w replacement of arch and elephant trunk in 2011, and repair in 2012, aortic stenosis status post aortic valve replacement in 1998, hypertension, dyslipidemia, left bundle-branch block, persistent atrial fibrillation, chronic diastolic heart failure, status post dual chamber pacemaker implantation in 2014. She follows in the office with Dr. Helton. We have been consulted for congestive heart failure. Patient seen today at the bedside resting with no signs of acute distress. She denies chest pain, palpitations, dyspnea, dizziness. She remains on 2 L nasal cannula with an oxygen saturation of 97-98. Patient is on home dose of oxygen. Will try to wean oxygen off and patient to room air as tolerated. Patient is maintained on PO Lasix 40mg BID. BUN has improved to 28, creatinine still elevated at 1.5 patient's heparin drip has been turned off. Patient is therapeutic on Coumadin at 2.9, patient has a mechanical valve. Will start patient on 5 mg Coumadin daily. Patient's home dose of Coumadin is 2.5 mg. However her INR was not therapeutic when she came in on Coumadin 2.5 mg her INR was only 1.3. She will be discharged on 5 mg of Coumadin daily. Dose will be adjusted outpatient Objective - Vital Signs Vital signs: Vital Signs Temp 99.0 F 07/20/21 08:00 Pulse 60 07/20/21 12:00 Resp 18 07/20/21 13:38 BP 139/67 07/20/21 12:00 Pulse Ox 97 07/20/21 12:00 Intake & Output 07/19/21 07/20/21 07/20/21 18:59 06:59 18:59 Intake Total 118 240 Output Total 800 1800 Balance -682 -1800 240 Intake: Oral 118 240 Output: Urine 800 1800 Uretheral (Welch) 575 Other: Voiding Method Indwelling Catheter Indwelling Catheter - Exam VITALS: Reviewed GENERAL: In no acute distress. NECK: Supple without JVD or thyromegaly. LUNGS: Breath sounds with mild crackles, diminished auscultation bilaterally. Respiration equal and unlabored. HEART: Regular rate and rhythm without murmurs, rubs or gallops. S1 and S2 heard. EXTREMITIES: Normal range of motion, 1+ bilateral lower extremity edema. No clubbing or cyanosis. Peripheral pulses intact. - Labs CBC & Chem 7: 07/20/21 09:47 07/20/21 09:47 Labs: Abnormal Lab Results - Last 24 Hours (Table) 07/20/21 07/20/21 07/20/21 Range/Units 09:47 09:47 09:47 RBC 3.21 L (3.80-5.40) m/uL Hgb 8.5 L (11.4-16.0) gm/dL Hct 29.5 L (34.0-46.0) % MCHC 28.7 L (31.0-37.0) g/dL RDW 18.9 H (11.5-15.5) % Plt Count 149 L (150-450) k/uL Lymphocytes # 0.4 L (1.0-4.8) k/uL PT 28.7 H (9.0-12.0) sec INR 2.9 H (<1.2) Sodium 136 L (137-145) mmol/L Chloride 96 L (98-107) mmol/L Carbon Dioxide 39 H (22-30) mmol/L BUN 28 H (7-17) mg/dL Creatinine 1.50 H (0.52-1.04) mg/dL Glucose 125 H (74-99) mg/dL Calcium 11.9 H (8.4-10.2) mg/dL Albumin 3.0 L (3.5-5.0) g/dL Microbiology - Last 24 Hours (Table) 07/13/21 09:35 Blood Culture - Final Blood No Growth after 144 hours 07/13/21 09:30 Blood Culture - Final Blood No Growth after 144 hours Assessment and Plan Assessment: Acute exacerbation of chronic diastolic heart failure Status post aortic valve replacement Sick sinus syndrome status post permanent pacemaker History of permanent atrial fibrillation on coumadin Subtherapeutic anticoagulation for mechanical valve History of AAA s/p repair Hypertenion Dyslipidemia Plan: Continue with by mouth Lasix Monitor renal function and electrolytes, I/Os, daily weights Continue home amiodarone and carvedilol give 5 mg of Coumadin this evening, patient will be discharged home on Coumadin 5 mg daily discharge home tomorrow Further recommendations based on clinical course Nurse Practitioner note has been reviewed, I agree with a documented findings and plan of care. Patient was seen and examined.
--- NOTE | 2021-07-20 15:38 | P.PN ---
Subjective Progress Note Date: 07/20/21 This is a 76-year-old female patient who was sent from [facility] facility with concerns of altered mental status changes. Patient has a past medical history of CHF with recent hospital admission for CHF, aortic valve replacement, chronic hypoxic respiratory failure maintained on 2 L nasal cannula and left-sided stroke. Patient was found lethargic by facility when EMS arrived patient was found to be in the 70s and 60s with pulse ox. Patient was transferred to the ER and oxygen was placed and patient began to wake up. Head CT was completed showing degenerative and nonspecific white matter change with no evidence of acute hemorrhage or mass effect. Chest x-ray performed showing suspect CHF favored over diffuse pneumonia correlate for pulmonary arterial hypertension. COVID-19 negative. ABGs performed showing a pH of 7.27, pCO2 of 94, pO2 of 258 and HCO3 level 43. . BNP elevated at 9540. INR subtherapeutic at 1.3 started on heparin gtt patient started on IV Lasix. Pulmonary service is consulted. Cardiology services consulted. 2-D echo has been ordered repeat chest x-ray ordered. Patient started on BiPAP. Patient currently resting in bed does wake up to name. On 07/14/2021 patient was seen and examined on the medical floor she is alert and oriented 3 in no apparent distress she is complaining of fatigue and generalized weakness and chest tightness otherwise she denies any complaints at this time there is no fever or chills no headache or dizziness no cough no nausea or vomiting no abdominal pain no diarrhea no blood in the stools no burning with urination no frequency or urgency and no hematuria On 07/15/2021 patient was seen and examined on the medical floor she is alert and oriented 3 in no apparent distress there is no fever or chills no headache or dizziness no chest pain no shortness of breath no cough no nausea or vomiting no abdominal pain no diarrhea no blood in the stools no burning with urination no frequency or urgency and no hematuria. Patient is still complaining of generalized weakness otherwise she denies any complaints 07/16/2021 patient is alert and oriented 3. Patient remains on IV Lasix. Patient also remains on IV heparin while bridging on Coumadin. Pharmacy to dose Coumadin ordered. Patient reports occasional shortness of breath but today feels improved. Patient denies chest pain. Patient denies nausea vomiting or diarrhea. Patient denies any urinary burning or frequency. On 07/17/2021 patient was seen and examined on the telemetry floor she is alert and oriented 3 in no apparent distress she is sitting up in a chair, she is reporting improvement in her shortness of breath, there is no fever or chills no headache or dizziness no chest pain no cough no nausea or vomiting no abdominal pain no diarrhea no blood in the stools no burning with urination no frequency or urgency and no hematuria. INR remains low at 1.2, patient is maintained on IV heparin for Coumadin bridging due to artificial valve. Pharmacy is following for Coumadin dosing. On 07/18/2021 patient's alert and oriented 3 resting comfortably in bed patient has been transitioned to oral Lasix. Patient remains on IV heparin while bridging over to Coumadin. INR today 1.6. Pharmacy to dose Coumadin. Patient did receive 1.75 Coumadin yesterday. At this time patient denies chest pain or shortness breath. Patient denies nausea vomiting or diarrhea. Patient denies any urinary burning or frequency On 07/19/2021 patient is alert and oriented 3 resting comfortably in bed. INR today 2.4. Goal 2.5-3.5 due to mechanical valve. Repeat labs ordered for a.m. Discharge planning back to ECF in progress. This time patient denies chest pain or shortness breath. Patient denies nausea vomiting or diarrhea. Patient denies any urinary burning or frequency On 07/20/2021 patient is alert and oriented 3 resting comfortably in bed. INR today 2.9. Goal 2.5-3.5 due to mechanical valve. Repeat labs ordered for a.m. Discharge planning back to ECF in progress. This time patient denies chest pain or shortness breath. Patient denies nausea vomiting or diarrhea. Patient denies any urinary symptoms. Objective - Vital Signs Vital signs: Vital Signs Temp 97.9 F 07/19/21 20:00 Pulse 64 07/20/21 04:00 Resp 18 07/20/21 04:00 BP 112/56 07/20/21 04:00 Pulse Ox 96 07/20/21 04:00 Intake & Output 07/19/21 07/20/21 07/20/21 18:59 06:59 18:59 Intake Total 118 Output Total 800 1800 Balance -682 -1800 Intake: Oral 118 Output: Urine 800 1800 Uretheral (Welch) 575 Other: Voiding Method Indwelling Catheter Indwelling Catheter - Exam In general patient is alert and oriented 3 in no apparent distress Head normocephalic and atraumatic Neck supple no JVD no goiter Lungs diminished bilaterally Heart regular rate and rhythm S1-S2, no rub or gallop Abdomen is soft nontender nondistended positive bowel sounds no hepatosplenomegaly Extremities no edema Neuro no gross focal deficits - Labs CBC & Chem 7: 07/20/21 09:47 07/20/21 09:47 Labs: Abnormal Lab Results - Last 24 Hours (Table) 07/19/21 07/19/21 07/19/21 Range/Units 08:27 08:27 08:27 RBC 3.32 L (3.80-5.40) m/uL Hgb 8.6 L (11.4-16.0) gm/dL Hct 30.3 L (34.0-46.0) % MCHC 28.4 L (31.0-37.0) g/dL RDW 18.9 H (11.5-15.5) % Plt Count 143 L (150-450) k/uL Lymphocytes # 0.5 L (1.0-4.8) k/uL PT 24.0 H (9.0-12.0) sec INR 2.4 H (<1.2) APTT 56.9 H (22.0-30.0) sec Carbon Dioxide 31 H (22-30) mmol/L BUN 31 H (7-17) mg/dL Creatinine 1.41 H (0.52-1.04) mg/dL Glucose 181 H (74-99) mg/dL Calcium 12.1 H (8.4-10.2) mg/dL Albumin 3.1 L (3.5-5.0) g/dL Microbiology - Last 24 Hours (Table) 07/13/21 09:35 Blood Culture - Final Blood No Growth after 144 hours 07/13/21 09:30 Blood Culture - Final Blood No Growth after 144 hours Assessment and Plan Assessment: Altered mental status changes. Head CT negative acute on chronic respiratory failure acute on chronic CHF exacerbation. History of CHF with cardiomyopathy History mechanical aortic valve replacement maintained on Coumadin INR subtherapetic History of atrial fibrillation History of stroke History of chronic kidney disease Previous history of GI bleed DVT prophylaxis heparin drip Pulmonary and cardiology services following Patient transitioned to by mouth Lasix Currently on IV heparin bridging over to Coumadin Socail Work services following for discharge planning back to ECF facility
[2021-07-20] MEDS ORDERED: WARFARIN 5 MG TAB PO ONE (18:00)
[2021-07-20] MEDS ORDERED: WARFARIN 2.5 MG TAB PO ONE (18:00)
[2021-07-21] MEDS: carvediloL 6.25 MG TAB PO SCH ×2 (06:21→17:19)
[2021-07-21 08:18] LABS: INR 2.8 (<1.2); Prothrombin Time 27.9 sec (9.0-12.0)
[2021-07-21 08:20] LABS: Anisocytosis Slight; Basophils % (A) 1 %; Eosinophils # (A) 0.2 k/uL (0-0.7); Eosinophils % (A) 4 %; HCT 31.7 % (34.0-46.0); HGB 9.2 gm/dL (11.4-16.0); Hypochromasia Marked; Lymphocytes # (A) 0.5 k/uL (1.0-4.8); Lymphocytes % (A) 11 %; MCH 26.4 pg (25.0-35.0); MCHC 29.1 g/dL (31.0-37.0); MCV 90.7 fL (80.0-100.0); Mean Platelet Volume 9.8; Monocytes # (A) 0.4 k/uL (0-1.0); Monocytes % (A) 8 %; Neutrophils # (A) 3.6 k/uL (1.3-7.7); Neutrophils % (A) 74 %; Platelet Count 164 k/uL (150-450); RBC 3.49 m/uL (3.80-5.40); RDW 18.6 % (11.5-15.5); WBC 4.8 k/uL (3.8-10.6)
[2021-07-21 08:25] LABS: Albumin 3.2 g/dL (3.5-5.0); Calcium 12.1 mg/dL (8.4-10.2); Potassium 4.4 mmol/L (3.5-5.1); Total Bilirubin 0.8 mg/dL (0.2-1.3); Total Protein 7.2 g/dL (6.3-8.2)
[2021-07-21] MEDS: DOCUSATE 100 MG CAP PO SCH ×2 (09:45→20:57)
[2021-07-21] MEDS: ASPIRIN 81 MG PO SCH (09:45)
[2021-07-21] MEDS: PANTOPRAZOLE 40 MG TABLET PO SCH (09:45)
[2021-07-21] MEDS: FUROSEMIDE 40 MG TAB PO SCH ×2 (09:45→17:19)
[2021-07-21] MEDS: AMIODARONE 100 MG TAB PO SCH (09:46)
--- NOTE | 2021-07-21 11:53 | P.PN ---
Subjective Progress Note Date: 07/21/21 HISTORY OF PRESENT ILLNESS: This is a 76-year-old female with a past medical history of type A aortic dissection in 1998 and aortic aneursym s/p bentall procedure w replacement of a rch and elephant trunk in 2011, and repair in 2012, aortic stenosis status post aortic valve replacement in 1998, hypertension, dyslipidemia, left bundle-branch block, persistent atrial fibrillation, chronic diastolic heart failure, status post dual chamber pacemaker implantation in 2014. She follows in the office with Dr. Helton. We have been consulted for congestive heart failure. 07/20/2021 Patient seen today at the bedside resting with no signs of acute distress. She denies chest pain, palpitations, dyspnea, dizziness. She remains on 2 L nasal cannula with an oxygen saturation of 97-98. Patient is on home dose of oxygen. Will try to wean oxygen off and patient to room air as tolerated. Patient is maintained on PO Lasix 40mg BID. BUN has improved to 28, creatinine still elevated at 1.5 patient's heparin drip has been turned off. Patient is therapeutic on Coumadin at 2.9, patient has a mechanical valve. Will start patient on 5 mg Coumadin daily. Patient's home dose of Coumadin is 2.5 mg. However her INR was not therapeutic when she came in on Coumadin 2.5 mg her INR was only 1.3. She will be discharged on 5 mg of Coumadin daily. Dose will be adjusted outpatient 07/21/2021 Patient examined this morning at the bedside. Patient denies chest pain or pressure. Denies SOB. INR today 2.8. She remains on Coumadin. Vital signs stable. PHYSICAL EXAM: VITAL SIGNS: Reviewed. GENERAL: Well-developed in no acute distress. NECK: Supple. No JVD or thyromegaly LUNGS: Respirations even and unlabored. Lungs essentially clear to auscultation bilaterally. HEART: Regular rate and rhythm. S1 and S2 heard. EXTREMITIES: Normal range of motion. No clubbing or cyanosis. Peripheral pulses intact. No lower extremity edema ASSESSMENT: Acute exacerbation of chronic diastolic heart failure Status post aortic valve replacement Sick sinus syndrome status post permanent pacemaker History of permanent atrial fibrillation on coumadin Subtherapeutic anticoagulation for mechanical valve History of AAA s/p repair Hypertenion Dyslipidemia PLAN: Continue current cardiac medications Continue Coumadin Patient is stable for discharge home today Patient to follow up outpatient with Dr. Helton Nurse practitioner note has been reviewed by physician. Signing provider agrees with the documented findings, assessment, and plan of care. Objective - Vital Signs Vital signs: Vital Signs Temp 98.3 F 07/21/21 08:00 Pulse 60 07/21/21 08:00 Resp 16 07/21/21 08:00 BP 109/51 07/21/21 08:00 Pulse Ox 98 07/21/21 08:00 Intake & Output 07/20/21 07/21/21 07/21/21 18:59 06:59 18:59 Intake Total 240 420 Output Total 700 1400 Balance -460 -1400 420 Intake: Oral 240 420 Output: Urine 700 1400 Other: Voiding Method Indwelling Catheter Indwelling Catheter - Labs CBC & Chem 7: 07/21/21 07:20 07/21/21 07:20 Labs: Abnormal Lab Results - Last 24 Hours (Table) 07/21/21 07/21/21 07/21/21 Range/Units 07:20 07:20 07:20 RBC 3.49 L (3.80-5.40) m/uL Hgb 9.2 L (11.4-16.0) gm/dL Hct 31.7 L (34.0-46.0) % MCHC 29.1 L (31.0-37.0) g/dL RDW 18.6 H (11.5-15.5) % Lymphocytes # 0.5 L (1.0-4.8) k/uL PT 27.9 H (9.0-12.0) sec INR 2.8 H (<1.2) Chloride 94 L (98-107) mmol/L Carbon Dioxide 41 H* (22-30) mmol/L BUN 31 H (7-17) mg/dL Creatinine 1.47 H (0.52-1.04) mg/dL Glucose 107 H (74-99) mg/dL Calcium 12.1 H (8.4-10.2) mg/dL Albumin 3.2 L (3.5-5.0) g/dL
[2021-07-21] MEDS: polyethylene glycoL 3350 17 GM POWD.PACK PO SCH (17:20)
--- NOTE | 2021-07-21 17:32 | P.PN ---
Subjective Progress Note Date: 07/21/21 This is a 76-year-old female patient who was sent from [facility] facility with concerns of altered mental status changes. Patient has a past medical history of CHF with recent hospital admission for CHF, aortic valve replacement, chronic hypoxic respiratory failure maintained on 2 L nasal cannula and left-sided stroke. Patient was found lethargic by facility when EMS arrived patient was found to be in the 70s and 60s with pulse ox. Patient was transferred to the ER and oxygen was placed and patient began to wake up. Head CT was completed showing degenerative and nonspecific white matter change with no evidence of acute hemorrhage or mass effect. Chest x-ray performed showing suspect CHF favored over diffuse pneumonia correlate for pulmonary arterial hypertension. COVID-19 negative. ABGs performed showing a pH of 7.27, pCO2 of 94, pO2 of 258 and HCO3 level 43. . BNP elevated at 9540. INR subtherapeutic at 1.3 started on heparin gtt patient started on IV Lasix. Pulmonary service is consulted. Cardiology services consulted. 2-D echo has been ordered repeat chest x-ray ordered. Patient started on BiPAP. Patient currently resting in bed does wake up to name. On 07/14/2021 patient was seen and examined on the medical floor she is alert and oriented 3 in no apparent distress she is complaining of fatigue and generalized weakness and chest tightness otherwise she denies any complaints at this time there is no fever or chills no headache or dizziness no cough no nausea or vomiting no abdominal pain no diarrhea no blood in the stools no burning with urination no frequency or urgency and no hematuria On 07/15/2021 patient was seen and examined on the medical floor she is alert and oriented 3 in no apparent distress there is no fever or chills no headache or dizziness no chest pain no shortness of breath no cough no nausea or vomiting no abdominal pain no diarrhea no blood in the stools no burning with urination no frequency or urgency and no hematuria. Patient is still complaining of generalized weakness otherwise she denies any complaints 07/16/2021 patient is alert and oriented 3. Patient remains on IV Lasix. Patient also remains on IV heparin while bridging on Coumadin. Pharmacy to dose Coumadin ordered. Patient reports occasional shortness of breath but today feels improved. Patient denies chest pain. Patient denies nausea vomiting or diarrhea. Patient denies any urinary burning or frequency. On 07/17/2021 patient was seen and examined on the telemetry floor she is alert and oriented 3 in no apparent distress she is sitting up in a chair, she is reporting improvement in her shortness of breath, there is no fever or chills no headache or dizziness no chest pain no cough no nausea or vomiting no abdominal pain no diarrhea no blood in the stools no burning with urination no frequency or urgency and no hematuria. INR remains low at 1.2, patient is maintained on IV heparin for Coumadin bridging due to artificial valve. Pharmacy is following for Coumadin dosing. On 07/18/2021 patient's alert and oriented 3 resting comfortably in bed patient has been transitioned to oral Lasix. Patient remains on IV heparin while bridging over to Coumadin. INR today 1.6. Pharmacy to dose Coumadin. Patient did receive 1.75 Coumadin yesterday. At this time patient denies chest pain or shortness breath. Patient denies nausea vomiting or diarrhea. Patient denies any urinary burning or frequency On 07/19/2021 patient is alert and oriented 3 resting comfortably in bed. INR today 2.4. Goal 2.5-3.5 due to mechanical valve. Repeat labs ordered for a.m. Discharge planning back to ECF in progress. This time patient denies chest pain or shortness breath. Patient denies nausea vomiting or diarrhea. Patient denies any urinary burning or frequency On 07/20/2021 patient is alert and oriented 3 resting comfortably in bed. INR today 2.9. Goal 2.5-3.5 due to mechanical valve. Repeat labs ordered for a.m. Discharge planning back to ECF in progress. This time patient denies chest pain or shortness breath. Patient denies nausea vomiting or diarrhea. Patient denies any urinary symptoms. On 07/21/2021 patient was seen and examined on the medical floor she is alert and oriented 3 in no apparent distress she is complaining of constipation otherwise she denies any complaints there is no fever or chills no headache or dizziness no chest pain no shortness of breath no cough no nausea or vomiting no abdominal pain no diarrhea and no urinary symptoms patient still had a Welch catheter in, will remove Welch catheter today and add MiraLAX, possible discharge back to [facility] tomorrow Objective - Vital Signs Vital signs: Vital Signs Temp 98.3 F 07/21/21 08:00 Pulse 60 07/21/21 14:00 Resp 16 07/21/21 14:00 BP 112/54 07/21/21 12:00 Pulse Ox 99 07/21/21 12:00 Intake & Output 07/20/21 07/21/21 07/21/21 18:59 06:59 18:59 Intake Total 240 840 Output Total 700 1400 Balance -460 -1400 840 Intake: Oral 240 840 Output: Urine 700 1400 Other: Voiding Method Indwelling Catheter Indwelling Catheter # Bowel Movements 1 - Exam In general patient is alert and oriented 3 in no apparent distress Head normocephalic and atraumatic Neck supple no JVD no goiter Lungs diminished bilaterally Heart regular rate and rhythm S1-S2, no rub or gallop Abdomen is soft nontender nondistended positive bowel sounds no hepatosplenomegaly Extremities no edema Neuro no gross focal deficits - Labs CBC & Chem 7: 07/21/21 07:20 07/21/21 07:20 Labs: Abnormal Lab Results - Last 24 Hours (Table) 07/21/21 07/21/21 07/21/21 Range/Units 07:20 07:20 07:20 RBC 3.49 L (3.80-5.40) m/uL Hgb 9.2 L (11.4-16.0) gm/dL Hct 31.7 L (34.0-46.0) % MCHC 29.1 L (31.0-37.0) g/dL RDW 18.6 H (11.5-15.5) % Lymphocytes # 0.5 L (1.0-4.8) k/uL PT 27.9 H (9.0-12.0) sec INR 2.8 H (<1.2) Chloride 94 L (98-107) mmol/L Carbon Dioxide 41 H* (22-30) mmol/L BUN 31 H (7-17) mg/dL Creatinine 1.47 H (0.52-1.04) mg/dL Glucose 107 H (74-99) mg/dL Calcium 12.1 H (8.4-10.2) mg/dL Albumin 3.2 L (3.5-5.0) g/dL Assessment and Plan Assessment: Altered mental status changes. Head CT negative acute on chronic respiratory failure acute on chronic CHF exacerbation. History of CHF with cardiomyopathy History mechanical aortic valve replacement maintained on Coumadin INR subtherapetic History of atrial fibrillation History of stroke History of chronic kidney disease Previous history of GI bleed DVT prophylaxis heparin drip Pulmonary and cardiology services following Patient transitioned to by mouth Lasix Currently on IV heparin bridging over to Coumadin Socail Work services following for discharge planning back to ECF facility
[2021-07-21] MEDS ORDERED: WARFARIN 5 MG TAB PO ONE (18:00)
[2021-07-22] MEDS: carvediloL 6.25 MG TAB PO SCH (05:41)
[2021-07-22 09:35] LABS: INR 3.5 (<1.2)
[2021-07-22] MEDS: DOCUSATE 100 MG CAP PO SCH (10:39)
[2021-07-22] MEDS: ASPIRIN 81 MG PO SCH (10:39)
[2021-07-22] MEDS: AMIODARONE 100 MG TAB PO SCH (10:39)
[2021-07-22] MEDS: PANTOPRAZOLE 40 MG TABLET PO SCH (10:40)
[2021-07-22] MEDS: FUROSEMIDE 40 MG TAB PO SCH (10:40)
[2021-07-22] MEDS: polyethylene glycoL 3350 17 GM POWD.PACK PO SCH (10:42)
--- NOTE | 2021-07-22 10:43 | P.PN ---
Subjective Progress Note Date: 07/22/21 HISTORY OF PRESENT ILLNESS: This is a 76-year-old female with a past medical history of type A aortic dissection in 1998 and aortic aneursym s/p bentall procedure w replacement of a rch and elephant trunk in 2011, and repair in 2012, aortic stenosis status post aortic valve replacement in 1998, hypertension, dyslipidemia, left bundle-branch block, persistent atrial fibrillation, chronic diastolic heart failure, status post dual chamber pacemaker implantation in 2014. She follows in the office with Dr. Helton. We have been consulted for congestive heart failure. 07/20/2021 Patient seen today at the bedside resting with no signs of acute distress. She denies chest pain, palpitations, dyspnea, dizziness. She remains on 2 L nasal cannula with an oxygen saturation of 97-98. Patient is on home dose of oxygen. Will try to wean oxygen off and patient to room air as tolerated. Patient is maintained on PO Lasix 40mg BID. BUN has improved to 28, creatinine still elevated at 1.5 patient's heparin drip has been turned off. Patient is therapeutic on Coumadin at 2.9, patient has a mechanical valve. Will start patient on 5 mg Coumadin daily. Patient's home dose of Coumadin is 2.5 mg. However her INR was not therapeutic when she came in on Coumadin 2.5 mg her INR was only 1.3. She will be discharged on 5 mg of Coumadin daily. Dose will be adjusted outpatient 07/21/2021 Patient examined this morning at the bedside. Patient denies chest pain or pressure. Denies SOB. INR today 2.8. She remains on Coumadin. Vital signs stable. 07/22/2021 Patient examined this morning at the bedside. Patient denies chest pain or pressure. Denies SOB. Patient is supposed to be discharged to ECF today. PHYSICAL EXAM: VITAL SIGNS: Reviewed. GENERAL: Well-developed in no acute distress. NECK: Supple. No JVD or thyromegaly LUNGS: Respirations even and unlabored. Lungs essentially clear to auscultation bilaterally. HEART: Regular rate and rhythm. S1 and S2 heard. EXTREMITIES: Normal range of motion. No clubbing or cyanosis. Peripheral pulses intact. No lower extremity edema ASSESSMENT: Acute exacerbation of chronic diastolic heart failure Status post aortic valve replacement Sick sinus syndrome status post permanent pacemaker History of permanent atrial fibrillation on coumadin Subtherapeutic anticoagulation for mechanical valve History of AAA s/p repair Hypertenion Dyslipidemia PLAN: Continue current cardiac medications Continue Coumadin Patient is stable for discharge home today Patient to follow up outpatient with Dr. Helton Nurse practitioner note has been reviewed by physician. Signing provider agrees with the documented findings, assessment, and plan of care. Objective - Vital Signs Vital signs: Vital Signs Temp 97.9 F 07/22/21 08:06 Pulse 60 07/22/21 08:06 Resp 17 07/22/21 08:51 BP 122/67 07/22/21 08:06 Pulse Ox 95 07/22/21 08:06 Intake & Output 07/21/21 07/22/21 07/22/21 18:59 06:59 18:59 Intake Total 1020 360 Output Total 700 820 Balance 320 -820 360 Intake: Oral 1020 360 Output: Urine 700 820 Uretheral (Welch) 320 Other: Voiding Method Indwelling Catheter Indwelling Catheter # Bowel Movements 1 - Labs CBC & Chem 7: 07/21/21 07:20 07/21/21 07:20 Labs: Abnormal Lab Results - Last 24 Hours (Table) 07/22/21 Range/Units 08:48 PT 35.0 H (9.0-12.0) sec INR 3.5 H (<1.2)
--- NOTE | 2021-07-22 11:20 | P.DS ---
Providers Date of admission: 07/13/21 10:49 Expected date of discharge: 07/22/21 Attending physician: Pauly Sosa Consults: 07/13/21 10:42 Consult Physician Routine Consulting Provider: Castro Mac Consult Reason/Comments: hypercapneic, hypoxic respiratory failure, CHF exacerbation Do you want consulting provider notified?: Already Contacted 07/13/21 10:47 Consult Physician Routine Consulting Provider: [facility] Consult Reason/Comments: CHF exacerbation Do you want consulting provider notified?: Yes Primary care physician: Pauly [facility] Course: Diagnosis on discharge: Altered mental status changes. Head CT negative acute on chronic respiratory failure acute on chronic CHF exacerbation. History of CHF with cardiomyopathy History mechanical aortic valve replacement maintained on Coumadin INR subtherapetic History of atrial fibrillation History of stroke History of chronic kidney disease Previous history of GI bleed hospital course: This is a 76-year-old female patient who was sent from [facility] facility with concerns of altered mental status changes. Patient has a past medical history of CHF with recent hospital admission for CHF, aortic valve replacement, chronic hypoxic respiratory failure maintained on 2 L nasal cannula and left-sided stroke. Patient was found lethargic by facility when EMS arrived patient was found to be in the 70s and 60s with pulse ox. Patient was transferred to the ER and oxygen was placed and patient began to wake up. Head CT was completed showing degenerative and nonspecific white matter change with no evidence of acute hemorrhage or mass effect. Chest x-ray performed showing suspect CHF favored over diffuse pneumonia correlate for pulmonary arterial hypertension. COVID-19 negative. ABGs performed showing a pH of 7.27, pCO2 of 94, pO2 of 258 and HCO3 level 43. . BNP elevated at 9540. INR subtherapeutic at 1.3 started on heparin gtt patient started on IV Lasix. Pulmonary service is consulted. Cardiology services consulted. 2-D echo has been ordered repeat chest x-ray ordered. Patient started on BiPAP. Patient currently resting in bed does wake up to name. On 07/14/2021 patient was seen and examined on the medical floor she is alert and oriented 3 in no apparent distress she is complaining of fatigue and generalized weakness and chest tightness otherwise she denies any complaints at this time there is no fever or chills no headache or dizziness no cough no nausea or vomiting no abdominal pain no diarrhea no blood in the stools no burning with urination no frequency or urgency and no hematuria On 07/15/2021 patient was seen and examined on the medical floor she is alert and oriented 3 in no apparent distress there is no fever or chills no headache or dizziness no chest pain no shortness of breath no cough no nausea or vomiting no abdominal pain no diarrhea no blood in the stools no burning with urination no frequency or urgency and no hematuria. Patient is still complaining of generalized weakness otherwise she denies any complaints 07/16/2021 patient is alert and oriented 3. Patient remains on IV Lasix. Patient also remains on IV heparin while bridging on Coumadin. Pharmacy to dose Coumadin ordered. Patient reports occasional shortness of breath but today feels improved. Patient denies chest pain. Patient denies nausea vomiting or diarrhea. Patient denies any urinary burning or frequency. On 07/17/2021 patient was seen and examined on the telemetry floor she is alert and oriented 3 in no apparent distress she is sitting up in a chair, she is reporting improvement in her shortness of breath, there is no fever or chills no headache or dizziness no chest pain no cough no nausea or vomiting no abdominal pain no diarrhea no blood in the stools no burning with urination no frequency or urgency and no hematuria. INR remains low at 1.2, patient is maintained on IV heparin for Coumadin bridging due to artificial valve. Pharmacy is following for Coumadin dosing. On 07/18/2021 patient's alert and oriented 3 resting comfortably in bed patient has been transitioned to oral Lasix. Patient remains on IV heparin while bridging over to Coumadin. INR today 1.6. Pharmacy to dose Coumadin. Patient did receive 1.75 Coumadin yesterday. At this time patient denies chest pain or shortness breath. Patient denies nausea vomiting or diarrhea. Patient denies any urinary burning or frequency On 07/19/2021 patient is alert and oriented 3 resting comfortably in bed. INR today 2.4. Goal 2.5-3.5 due to mechanical valve. Repeat labs ordered for a.m. Discharge planning back to [facility] in progress. This time patient denies chest pain or shortness breath. Patient denies nausea vomiting or diarrhea. Patient denies any urinary burning or frequency On 07/20/2021 patient is alert and oriented 3 resting comfortably in bed. INR today 2.9. Goal 2.5-3.5 due to mechanical valve. Repeat labs ordered for a.m. Discharge planning back to [facility] in progress. This time patient denies chest pain or shortness breath. Patient denies nausea vomiting or diarrhea. Patient denies any urinary symptoms. On 07/21/2021 patient was seen and examined on the medical floor she is alert and oriented 3 in no apparent distress she is complaining of constipation otherwise she denies any complaints there is no fever or chills no headache or dizziness no chest pain no shortness of breath no cough no nausea or vomiting no abdominal pain no diarrhea and no urinary symptoms patient still had a Welch catheter in, will remove Welch catheter today and add MiraLAX, possible discharge back to [facility] tomorrow On 07/22/2021 patient was seen and examined on the medical floor she is alert and oriented 3 in no apparent distress there is no fever or chills no headache or dizziness no chest pain, no cough, no nausea or vomiting no abdominal pain no diarrhea no blood in the stools no burning with urination no frequency or urgency and no hematuria, shortness of breath is improving gradually, INR is therapeutic at 3.5. Patient can be discharged to [facility] to continue rehab, will follow closely at [facility] Patient Condition at Discharge: Serious Plan - Discharge Summary Discharge Rx Participant: No New Discharge Prescriptions: New Amiodarone [Cordarone] 100 mg PO DAILY tab Warfarin [Coumadin] 4 mg PO DAILY 30 Days #60 tab Docusate [Colace] 100 mg PO BID cap carvediloL [Coreg] 6.25 mg PO AC-BID tab Ipratropium-Albuterol Nebulize [Duoneb 0.5 mg-3 mg/3 ml Soln] 3 ml INHALATION RT-QID PRN ml PRN Reason: Shortness Of Breath Or Wheezing Continue ALPRAZolam [Xanax] 0.25 mg PO Q6H PRN PRN Reason: Anxiety Furosemide [Lasix] 40 mg PO BID Famotidine 20 mg PO DAILY Aspirin 81 mg PO DAILY Discontinued Spironolactone [Aldactone] 25 mg PO DAILY Warfarin [Coumadin] 2 mg PO HS Carvedilol [Coreg] 18.75 mg PO BID Discharge Medication List ALPRAZolam [Xanax] 0.25 mg PO Q6H PRN 07/13/21 [History] Aspirin 81 mg PO DAILY 07/13/21 [History] Famotidine 20 mg PO DAILY 07/13/21 [History] Furosemide [Lasix] 40 mg PO BID 07/13/21 [History] Amiodarone [Cordarone] 100 mg PO DAILY tab 07/22/21 [Rx] Docusate [Colace] 100 mg PO BID cap 07/22/21 [Rx] Ipratropium-Albuterol Nebulize [Duoneb 0.5 mg-3 mg/3 ml Soln] 3 ml INHALATION RT-QID PRN ml 07/22/21 [Rx] Warfarin [Coumadin] 4 mg PO DAILY 30 Days #60 tab 07/22/21 [Rx] carvediloL [Coreg] 6.25 mg PO AC-BID tab 07/22/21 [Rx] Follow up Appointment(s)/Referral(s): Clayton Helton MD [STAFF PHYSICIAN] - 2 Weeks Pauly Sosa MD [Primary Care Provider] - 1-2 days
[2021-07-22 13:53] VITALS: BP 108/55; PULSE 62; RESP 15; TEMP 98.2
[2021-07-22] MEDS ORDERED: WARFARIN 0.5 MG TAB PO ONE (18:00)
== END 2021-07-22 14:05 | DRG 291 ==
LOC: EC 09:08 → 3SCARD 10:49
PROVIDERS: ADMIT Internal Medicine; ATTEND Internal Medicine
DX: I13.0 Hypertensive heart and chronic kidney disease with heart failure and stage 1 through stage 4 chronic kidney disease, or unspecified chronic kidney disease (principal); I50.33 Acute on chronic diastolic (congestive) heart failure; J96.21 Acute and chronic respiratory failure with hypoxia; J96.22 Acute and chronic respiratory failure with hypercapnia; E87.2 Acidosis; I48.21 Permanent atrial fibrillation; N18.4 Chronic kidney disease, stage 4 (severe); R41.82 Altered mental status, unspecified; I42.9 Cardiomyopathy, unspecified; E78.5 Hyperlipidemia, unspecified; G25.0 Essential tremor; I08.1 Rheumatic disorders of both mitral and tricuspid valves; I27.20 Pulmonary hypertension, unspecified; I49.5 Sick sinus syndrome; I69.30 Unspecified sequelae of cerebral infarction; R79.1 Abnormal coagulation profile; Z20.822 Contact with and (suspected) exposure to COVID-19; Z79.01 Long term (current) use of anticoagulants; Z79.82 Long term (current) use of aspirin; Z79.899 Other long term (current) drug therapy; Z82.49 Family history of ischemic heart disease and other diseases of the circulatory system; Z87.442 Personal history of urinary calculi; Z95.0 Presence of cardiac pacemaker; Z86.79 Personal history of other diseases of the circulatory system; Z95.2 Presence of prosthetic heart valve
CPT/HCPCS: 36415; 36600; 70450; 71045; 80048; 80053; 80306; 80320; 81001; 82140; 82805; 83605; 83735; 83880; 84484; 85025; 85610; 85730; 87040; 87502; 87635; 93005; 93306; 94640; 94660; 94760; 96360; 99291

== ENCOUNTER 2021-08-12 06:25 | Inpatient (IN) | payer MEDICARE, OTHER ==
[2021-08-12] MEDS ORDERED: PHYTONADIONE ORAL 5 MG/5 ML ORAL.SYRG PO STA (06:38)
--- NOTE | 2021-08-12 06:52 | ED ---
Fall HPI - General Source: patient, EMS, RN notes reviewed Mode of arrival: EMS Limitations: physical limitation <Forest Hsu - Last Filed: 08/12/21 08:48> <Dalia Davis - Last Filed: 08/15/21 23:44> - General Chief Complaint: Fall Stated Complaint: low hemoglobin Time Seen by Provider: 08/12/21 06:28 - History of Present Illness Initial Comments: This a 76-year-old female presents emergency department via EMS from [facility] chief complaint of a fall, anemia. Patient reportedly had blood work performed yesterday which showed hemoglobin 5.6. Patient is on Coumadin and INR was elevated. Patient does have a mechanical valve. Patient does have history of CVA has chronic left-sided weakness. Patient reports that she had a fall couple days ago in which she was not evaluated for. She states she fell towards complaint of right-sided pain she does have extensive bruising her right arm and bruising diffusely over her body. Patient has not had a recent bowel movement. Denies any melena, hematochezia, hematemesis or coffee-ground emesis. Patient does feel generalized weak and went to chest pain patient does have chronic shortness of breath. (Forest Hsu) - Related Data Home Medications Medication Instructions Recorded Confirmed ALPRAZolam [Xanax] 0.25 mg PO DAILY 07/13/21 08/12/21 Aspirin 81 mg PO DAILY 07/13/21 08/12/21 Famotidine 20 mg PO DAILY 07/13/21 08/12/21 Furosemide [Lasix] 40 mg PO BID 07/13/21 08/12/21 Acetaminophen Tab [Tylenol] 650 mg PO Q4H PRN 08/12/21 08/12/21 Enoxaparin [Lovenox] 80 mg SQ BID@0800,199908/12/21 08/12/21 Magnesium Hydroxide [Milk of 2,400 mg PO Q72H PRN 08/12/21 08/12/21 Magnesia] Na Phos,M-B/Na Phos,Di-Ba [Fleet 133 ml RECTAL DAILY PRN 08/12/21 08/12/21 Adult] Sodium Chloride [Saline Nasal 1 spray EA NOSTRIL Q2H PRN 08/12/21 08/12/21 [place]] Warfarin [Coumadin] 4 mg PO DAILY@1700 08/12/21 08/12/21 bisacodyL [Dulcolax] 10 mg RECTAL DAILY PRN 08/12/21 08/12/21 Previous Rx's Medication Instructions Recorded Amiodarone [Cordarone] 100 mg PO DAILY tab 07/22/21 Docusate [Colace] 100 mg PO BID cap 07/22/21 Ipratropium-Albuterol Nebulize 3 ml INHALATION RT-QID PRN ml 07/22/21 [Duoneb 0.5 mg-3 mg/3 ml Soln] carvediloL [Coreg] 6.25 mg PO AC-BID tab 07/22/21 Allergies Allergy/AdvReac Type Severity Reaction Status Date / Time amoxicillin AdvReac Nausea & Verified 08/12/21 07:00 Vomiting & Diarrhea levofloxacin [From Levaquin] AdvReac Rash/Hives Verified 08/12/21 07:00 Penicillins AdvReac Nausea & Verified 08/12/21 07:00 Vomiting & Diarrhea silver sulfadiazine AdvReac Unknown Verified 08/12/21 07:00 [From Silvadene] Review of Systems ROS Other: All systems not noted in ROS Statement are negative. <Forest Hsu - Last Filed: 08/12/21 08:48> ROS Other: All systems not noted in ROS Statement are negative. <Dalia Davis - Last Filed: 08/15/21 23:44> ROS Statement: Those systems with pertinent positive or pertinent negative responses have been documented in the HPI. Past Medical History Past Medical History: Atrial Fibrillation, Heart Failure, CVA/TIA, Hyperlipid emia, Hypertension, Memory Impairment, Osteoarthritis (OA), Pneumonia, Renal Disease, Vascular Disorder Additional Past Medical History / Comment(s): Afib with cardioversion, cardiomyopathy with BiV pacer, bronchitis, pulmonary HTN, chronic respiratory failure with oxygen ATC, systolic CHF, bilateral leg edema, past abdominal aortic dissection with repairs, CVA post op aneurysm repair with mild L sided weakness/memory impairment, CKD stage IV, nephrolithiasis/surgically removed, UTIs, lower GI bleed, chronic anemia, colitis or diverticulitis, chronic wound L lower extremity, essential tremors History of Any Multi-Drug Resistant Organisms: None Reported Past Surgical History: Back Surgery, Heart Catheterization, Pacemaker Additional Past Surgical History / Comment(s): 1998 aortic disection repair, three aneurysm ascending and descending aorta, aortic valve replacement(MECHANICAL VALVE), CYST AT END OF SPINE REMOVED. CARDIAC CATHETERIZATION WHICH WAS NORMAL. biventricular pacer placed in 08/2014 - pacer is on right side of chest - physician unable to get into left, lithotripsy/double J stent, voice change/difficult to understand d/t vocal cord paralysis thought d/t intubations. Past Anesthesia/Blood Transfusion Reactions: No Reported Reaction Type of Cardiac Device: Biventricular Pacemaker Device Placement Date:: 08/2014 Past Psychological History: No Psychological Hx Reported Smoking Status: Never smoker - Past Family History Father History Unknown: Yes Family Medical History: AFIB, Congestive Heart Failure (CHF) Additional Family Medical History / Comment(s): FATHER AT AGE 73 OF CHF. Mother History Unknown: Yes Additional Family Medical History / Comment(s): MOTHER AT AGE 78 OF SEPTIC SHOCK UNKNOWN SOURCE. <Forest Hsu - Last Filed: 08/12/21 08:48> General Exam Limitations: physical limitation General appearance: alert, in no apparent distress Head exam: Present: atraumatic, normocephalic, normal inspection Eye exam: Present: normal appearance, PERRL, EOMI. Absent: scleral icterus, conjunctival injection, periorbital swelling ENT exam: Present: normal exam, normal oropharynx, mucous membranes moist Neck exam: Present: normal inspection, full ROM. Absent: tenderness, men ingismus, lymphadenopathy Respiratory exam: Present: normal lung sounds bilaterally. Absent: respiratory distress, wheezes, rales, rhonchi, stridor Cardiovascular Exam: Present: regular rate, normal rhythm, normal heart sounds. Absent: systolic murmur, diastolic murmur, rubs, gallop, clicks GI/Abdominal exam: Present: soft, normal bowel sounds. Absent: distended, tenderness, guarding, rebound, rigid Extremities exam: Present: other (Right elbow there is extensive swelling, ecchymosis, tenderness to palpation neurovascular intact patient has bruising noted diffusely over her extremities.) Neurological exam: Present: alert, oriented X3 Skin exam: Present: warm, dry, intact. Absent: normal color (Ecchymosis diffusely), rash <Forest Hsu - Last Filed: 08/12/21 08:48> Course Vital Signs 08/12/21 08/12/21 08/12/21 06:33 08:20 10:35 Temperature 98.0 F 98.5 F Pulse Rate 60 60 60 Pulse Rate [ Data Solutions Architect ] Respiratory 16 20 14 Rate Blood Pressure 134/100 99/37 99/48 Blood Pressure [Left Arm] O2 Sat by Pulse 100 100 100 Oximetry 08/12/21 08/12/21 08/12/21 13:06 13:16 13:46 Temperature 98.2 F 97.4 F L 97.6 F Pulse Rate 60 60 60 Pulse Rate [ Data Solutions Architect ] Respiratory 18 Rate Blood Pressure 95/41 98/48 97/41 Blood Pressure [Left Arm] O2 Sat by Pulse 100 100 100 Oximetry 08/12/21 08/12/21 15:02 17:15 Temperature 97.1 F L 97.1 F L Pulse Rate 62 Pulse Rate [ 60 Data Solutions Architect ] Respiratory 16 18 Rate Blood Pressure 96/41 Blood Pressure 133/50 [Left Arm] O2 Sat by Pulse 100 100 Oximetry Medical Decision Making - Lab Data Result diagrams: 08/12/21 06:45 08/12/21 06:45 <Forest Hsu - Last Filed: 08/12/21 08:48> - Lab Data Result diagrams: 08/15/21 05:26 08/15/21 05:26 <Dalia Davis - Last Filed: 08/15/21 23:44> - Medical Decision Making 76-year-old presented for anemia. Hemoglobin is 5.3 with INR greater than 10. Patient does have known mechanical valve. Patient does have extensive bruising was given vitamin K. She's had no complaints to rectal bleeding no abdominal complaints. Patient will be admitted for blood transfusion, repeat H&H, repeat PT/INR close monitoring. I did discuss case with Dr. Sosa recommends patient be admitted to step down unit (Forest Hsu) I was available for consultation in the emergency department. The history and physical exam were done by the midlevel provider. I was consulted for this patients care. I reviewed the case with the midlevel provider and based on their presentation of the patient, I agree with the assessment, medical decision making and plan of care as documented. Chart was dictated using [employer] dictation software. Attempts were made to correct any dictation errors however some typographical errors may persist. Patient was seen during a national state of emergency due to the Covid-19 pandemic. (Dalia Davis) - Lab Data Lab Results 08/12/21 08/12/21 08/12/21 Range/Units 06:45 06:45 06:45 WBC 7.5 (3.8-10.6) k/uL RBC 2.03 L (3.80-5.40) m/uL Hgb 5.4 L* D (11.4-16.0) gm/dL Hct 18.0 L* (34.0-46.0) % MCV 88.8 (80.0-100.0) fL MCH 26.5 (25.0-35.0) pg MCHC 29.8 L (31.0-37.0) g/dL RDW 18.9 H (11.5-15.5) % Plt Count 182 (150-450) k/uL MPV 9.2 Neutrophils % 76 % Lymphocytes % 11 % Monocytes % 7 % Eosinophils % 3 % Basophils % 1 % Neutrophils # 5.8 (1.3-7.7) k/uL Lymphocytes # 0.9 L (1.0-4.8) k/uL Monocytes # 0.6 (0-1.0) k/uL Eosinophils # 0.2 (0-0.7) k/uL Basophils # 0.1 (0-0.2) k/uL Hypochromasia Marked Anisocytosis Slight PT 103.4 H (9.0-12.0) sec INR >10.0 H* (<1.2) APTT 57.1 H (22.0-30.0) sec Sodium 133 L (137-145) mmol/L Potassium 3.9 (3.5-5.1) mmol/L Chloride 92 L (98-107) mmol/L Carbon Dioxide 39 H (22-30) mmol/L Anion Gap 2 mmol/L BUN 35 H (7-17) mg/dL Creatinine 1.29 H (0.52-1.04) mg/dL Est GFR (CKD-EPI)AfAm 47 (>60 ml/min/1.73 sqM) Est GFR (CKD-EPI)NonAf 41 (>60 ml/min/1.73 sqM) Glucose 101 H (74-99) mg/dL Plasma Lactic Acid Jimy (0.7-2.0) mmol/L Calcium 10.6 H (8.4-10.2) mg/dL Total Bilirubin 1.1 (0.2-1.3) mg/dL AST 29 (14-36) U/L ALT 8 (4-34) U/L Alkaline Phosphatase 62 (38-126) U/L Troponin I (0.000-0.034) ng/mL Total Protein 5.8 L (6.3-8.2) g/dL Albumin 2.6 L (3.5-5.0) g/dL Blood Type Blood Type Recheck Bld Type Recheck Status Antibody Screen Antibody Identification Direct Antiglob Test Crossmatch Spec Expiration Date 08/12/21 08/12/21 08/12/21 Range/Units 06:45 06:45 07:25 WBC (3.8-10.6) k/uL RBC (3.80-5.40) m/uL Hgb (11.4-16.0) gm/dL Hct (34.0-46.0) % MCV (80.0-100.0) fL MCH (25.0-35.0) pg MCHC (31.0-37.0) g/dL RDW (11.5-15.5) % Plt Count (150-450) k/uL MPV Neutrophils % % Lymphocytes % % Monocytes % % Eosinophils % % Basophils % % Neutrophils # (1.3-7.7) k/uL Lymphocytes # (1.0-4.8) k/uL Monocytes # (0-1.0) k/uL Eosinophils # (0-0.7) k/uL Basophils # (0-0.2) k/uL Hypochromasia Anisocytosis PT (9.0-12.0) sec INR (<1.2) APTT (22.0-30.0) sec Sodium (137-145) mmol/L Potassium (3.5-5.1) mmol/L Chloride (98-107) mmol/L Carbon Dioxide (22-30) mmol/L Anion Gap mmol/L BUN (7-17) mg/dL Creatinine (0.52-1.04) mg/dL Est GFR (CKD-EPI)AfAm (>60 ml/min/1.73 sqM) Est GFR (CKD-EPI)NonAf (>60 ml/min/1.73 sqM) Glucose (74-99) mg/dL Plasma Lactic Acid Jimy 0.9 (0.7-2.0) mmol/L Calcium (8.4-10.2) mg/dL Total Bilirubin (0.2-1.3) mg/dL AST (14-36) U/L ALT (4-34) U/L Alkaline Phosphatase (38-126) U/L Troponin I 0.058 H* (0.000-0.034) ng/mL Total Protein (6.3-8.2) g/dL Albumin (3.5-5.0) g/dL Blood Type B Positive Blood Type Recheck B Pos Bld Type Recheck Status No Antibody Screen POSITIVE Antibody Identification Anti-Fya Direct Antiglob Test Negative Crossmatch See Detail Spec Expiration Date 08/15/2021 - 9696 Critical Care Time Critical Care Time: Yes Total Critical Care Time: 35 <Forest Hsu - Last Filed: 08/12/21 08:48> Disposition <Forest Hsu - Last Filed: 08/12/21 08:48> <Dalia Davis - Last Filed: 08/15/21 23:44> Clinical Impression: Traumatic hematoma of right upper arm, Warfarin-induced coagulopathy, Anemia, CKD (chronic kidney disease) Disposition: [facility] Condition: Serious
--- NOTE | 2021-08-12 06:54 | XR ---
EXAMINATION TYPE: XR elbow complete RT DATE OF EXAM: 08/12/2021 CLINICAL HISTORY: Falling injury with pain TECHNIQUE: Frontal, lateral and oblique images of the right elbow are obtained. COMPARISON: None FINDINGS: Mild/moderate diffuse subcutaneous edema. There is no acute fracture/dislocation evident in the right elbow. No abnormal fat pad signs are seen. IMPRESSION: There is no acute fracture or dislocation in the right elbow.
[2021-08-12 07:21] LABS: Anisocytosis Slight; Basophils # (A) 0.1 k/uL (0-0.2); Basophils % (A) 1 %; Eosinophils # (A) 0.2 k/uL (0-0.7); Eosinophils % (A) 3 %; Hypochromasia Marked; Lymphocytes # (A) 0.9 k/uL (1.0-4.8); Lymphocytes % (A) 11 %; MCH 26.5 pg (25.0-35.0); MCHC 29.8 g/dL (31.0-37.0); MCV 88.8 fL (80.0-100.0); Mean Platelet Volume 9.2; Monocytes # (A) 0.6 k/uL (0-1.0); Monocytes % (A) 7 %; Neutrophils # (A) 5.8 k/uL (1.3-7.7); Neutrophils % (A) 76 %; Platelet Count 182 k/uL (150-450); RBC 2.03 m/uL (3.80-5.40); RDW 18.9 % (11.5-15.5); WBC 7.5 k/uL (3.8-10.6)
[2021-08-12 07:42] LABS: Partial Thromboplastin Time 57.1 sec (22.0-30.0); Prothrombin Time 103.4 sec (9.0-12.0)
[2021-08-12 07:56] LABS: HGB 5.4 gm/dL (11.4-16.0)
[2021-08-12 08:27] LABS: INR >10.0 (<1.2)
[2021-08-12 08:34] LABS: Albumin 2.6 g/dL (3.5-5.0); Calcium 10.6 mg/dL (8.4-10.2); Potassium 3.9 mmol/L (3.5-5.1); Total Bilirubin 1.1 mg/dL (0.2-1.3); Total Protein 5.8 g/dL (6.3-8.2)
[2021-08-12] MEDS ORDERED: ONDANSETRON 4 MG/2 ML VIAL IVP PRN (08:50)
[2021-08-12] MEDS ORDERED: NALOXONE 0.4 MG/ML 1 ML VIAL IV PRN (08:50)
[2021-08-12] MEDS ORDERED: SALINE NASAL GEL 14.1 GM TUBE NASAL PRN (10:28)
[2021-08-12] MEDS: PANTOPRAZOLE 40 MG/10 ML VIAL IV SCH ×2 (10:33→19:50)
[2021-08-12] MEDS: ACETAMINOPHEN TAB 325 MG TAB PO PRN ×2 (10:33→19:50)
[2021-08-12] MEDS ORDERED: HYDROcodone/APAP 5-325MG 1 EACH TAB PO STA (13:55)
[2021-08-12] MEDS ORDERED: bisacodyL 10 MG SUPP RECTAL PRN (18:53)
[2021-08-12] MEDS ORDERED: MAGNESIUM HYDROXIDE 2,400 MG/10 ML CUP PO PRN (18:53)
[2021-08-12] MEDS ORDERED: NA PHOS,M-B/NA PHOS,DI-BA 133 ML ENEMA RECTAL PRN (18:53)
--- NOTE | 2021-08-12 19:20 | P.HPIM ---
History of Present Illness H&P Date: 08/12/21 Alix Odonnell, he is a 76-year-old female who was at [facility] for rehab after a recent admission, patient had abnormal lab test that revealed a hemoglobin of 5 and elevated INR of 9, patient also had recent fall and multiple bruises, she was sent to [facility] for evaluation and treatment. She was evaluated in the emergency room vital examination on presentation revealed a temperature of 98 pulse 60 respiration 16 blood pressure 134/100 pulse ox 100% on room air Laboratory data revealed a white blood count of 7.5 hemoglobin 5.4 platelet count 182 sodium 133 potassium 3.9 chloride 92 CO2 39 BUN 35 creatinine 1.20 Testing in the emergency room revealed elbow x-ray revealed no evidence of acute fracture or dislocation in the right elbow, EKG revealed electronic ventricular pacemaker with prolonged QT interval Patient was given vitamin K and red blood cell transfusion in the emergency room, she was admitted to medical floor for further evaluation and treatment, cardiology consultation was requested Past Medical History Past Medical History: Atrial Fibrillation, Heart Failure, CVA/TIA, Hyperlipidemia, Hypertension, Memory Impairment, Osteoarthritis (OA), Pneumonia, Renal Disease, Vascular Disorder Additional Past Medical History / Comment(s): Afib with cardioversion, cardiomyopathy with BiV pacer, bronchitis, pulmonary HTN, chronic respiratory failure with oxygen ATC, systolic CHF, bilateral leg edema, past abdominal aortic dissection with repairs, CVA post op aneurysm repair with mild L sided weakness/memory impairment, CKD stage IV, nephrolithiasis/surgically removed, UT Is, lower GI bleed, chronic anemia, colitis or diverticulitis, chronic wound L lower extremity/healed now, essential tremors History of Any Multi-Drug Resistant Organisms: None Reported Past Surgical History: Back Surgery, Heart Catheterization, Pacemaker Additional Past Surgical History / Comment(s): 1998 aortic disection repair/ five aneurysm ascending and descending aorta, aortic valve replacement(MECHANICAL VALVE), CYST AT END OF SPINE REMOVED. CARDIAC CATHETERIZATION WHICH WAS NORMAL. biventricular pacer placed in 08/2014 - pacer is on right side of chest - physician unable to get into left, lithotripsy/double J stent, voice change/difficult to understand d/t vocal cord paralysis thought d/t intubations. Past Anesthesia/Blood Transfusion Reactions: No Reported Reaction Type of Cardiac Device: Biventricular Pacemaker Device Placement Date:: 08/2014 Smoking Status: Never smoker - Past Family History Father History Unknown: Yes Family Medical History: AFIB, Congestive Heart Failure (CHF) Additional Family Medical History / Comment(s): FATHER AT AGE 73 OF CHF. Mother History Unknown: Yes Additional Family Medical History / Comment(s): MOTHER AT AGE 78 OF SEPTIC SHOCK UNKNOWN SOURCE. Medications and Allergies Home Medications Medication Instructions Recorded Confirmed Type ALPRAZolam [Xanax] 0.25 mg PO DAILY 07/13/21 08/12/21 History Aspirin 81 mg PO DAILY 07/13/21 08/12/21 History Famotidine 20 mg PO DAILY 07/13/21 08/12/21 History Furosemide [Lasix] 40 mg PO BID 07/13/21 08/12/21 History Amiodarone [Cordarone] 100 mg PO DAILY tab 07/22/21 08/12/21 Rx Docusate [Colace] 100 mg PO BID cap 07/22/21 08/12/21 Rx Ipratropium-Albuterol Nebulize 3 ml INHALATION RT-QID PRN ml 07/22/21 08/12/21 Rx [Duoneb 0.5 mg-3 mg/3 ml Soln] carvediloL [Coreg] 6.25 mg PO AC-BID tab 07/22/21 08/12/21 Rx Acetaminophen Tab [Tylenol] 650 mg PO Q4H PRN 08/12/21 08/12/21 History Enoxaparin [Lovenox] 80 mg SQ BID@0800,2000 08/12/21 08/12/21 History Magnesium Hydroxide [Milk of 2,400 mg PO Q72H PRN 08/12/21 08/12/21 History Magnesia] Na Phos,M-B/Na Phos,Di-Ba [Fleet 133 ml RECTAL DAILY PRN 08/12/21 08/12/21 History Adult] Sodium Chloride [Saline Nasal 1 spray EA NOSTRIL Q2H PRN 08/12/21 08/12/21 History Carrabelle] Warfarin [Coumadin] 4 mg PO DAILY@1700 08/12/21 08/12/21 History bisacodyL [Dulcolax] 10 mg RECTAL DAILY PRN 08/12/21 08/12/21 History Allergies Allergy/AdvReac Type Severity Reaction Status Date / Time amoxicillin AdvReac Nausea & Verified 08/12/21 07:00 Vomiting & Diarrhea levofloxacin [From Levaquin] AdvReac Rash/Hives Verified 08/12/21 07:00 Penicillins AdvReac Nausea & Verified 08/12/21 07:00 Vomiting & Diarrhea silver sulfadiazine AdvReac Unknown Verified 08/12/21 07:00 [From Silvadene] Physical Exam Vitals: Vital Signs Temp Pulse Pulse Resp BP BP Pulse Ox 08/12/21 17:15 97.1 F L 60 18 133/50 100 08/12/21 15:02 97.1 F L 62 16 96/41 100 08/12/21 13:46 97.6 F 60 97/41 100 08/12/21 13:16 97.4 F L 60 98/48 100 08/12/21 13:06 98.2 F 60 18 95/41 100 08/12/21 10:35 60 14 99/48 100 08/12/21 08:20 98.5 F 60 20 99/37 100 08/12/21 06:33 98.0 F 60 16 134/100 100 Intake and Output 08/12/21 08/12/21 08/12/21 06:59 14:59 22:59 Intake Total 282 250 Balance 282 250 Intake: IV 10 Invasive Line 1 10 Oral 240 Blood Product 282 Rc Pheresis 2 As3 Unit 282 [id number] Other: Voiding Method Diaper Incontinent Weight 81.647 kg 81.647 kg In general patient is alert and oriented x 3 in no distress HEENT head normocephalic and atraumatic Neck is supple no JVD no goiter no lymphadenopathy no carotid bruit Chest examination is clear to auscultation no crackles no wheezing Cardiac exam reveals regular heart sounds S1 and S2 no gallops no murmurs Abdomen is soft nontender no organomegaly with normal bowel sounds Extremity exam reveals no edema no cyanosis or clubbing Neurological examination reveals no gross focal deficits Results CBC & Chem 7: 08/12/21 06:45 08/12/21 06:45 Labs: Abnormal Lab Results - Last 24 Hours (Table) 08/12/21 08/12/21 08/12/21 Range/Units 06:45 06:45 06:45 RBC 2.03 L (3.80-5.40) m/uL Hgb 5.4 L* D (11.4-16.0) gm/dL Hct 18.0 L* (34.0-46.0) % MCHC 29.8 L (31.0-37.0) g/dL RDW 18.9 H (11.5-15.5) % Lymphocytes # 0.9 L (1.0-4.8) k/uL PT 103.4 H (9.0-12.0) sec INR >10.0 H* (<1.2) APTT 57.1 H (22.0-30.0) sec Sodium 133 L (137-145) mmol/L Chloride 92 L (98-107) mmol/L Carbon Dioxide 39 H (22-30) mmol/L BUN 35 H (7-17) mg/dL Creatinine 1.29 H (0.52-1.04) mg/dL Glucose 101 H (74-99) mg/dL Calcium 10.6 H (8.4-10.2) mg/dL Troponin I (0.000-0.034) ng/mL Total Protein 5.8 L (6.3-8.2) g/dL Albumin 2.6 L (3.5-5.0) g/dL Crossmatch 08/12/21 08/12/21 Range/Units 06:45 07:25 RBC (3.80-5.40) m/uL Hgb (11.4-16.0) gm/dL Hct (34.0-46.0) % MCHC (31.0-37.0) g/dL RDW (11.5-15.5) % Lymphocytes # (1.0-4.8) k/uL PT (9.0-12.0) sec INR (<1.2) APTT (22.0-30.0) sec Sodium (137-145) mmol/L Chloride (98-107) mmol/L Carbon Dioxide (22-30) mmol/L BUN (7-17) mg/dL Creatinine (0.52-1.04) mg/dL Glucose (74-99) mg/dL Calcium (8.4-10.2) mg/dL Troponin I 0.058 H* (0.000-0.034) ng/mL Total Protein (6.3-8.2) g/dL Albumin (3.5-5.0) g/dL Crossmatch See Detail Thrombosis Risk Factor Assmnt - Choose All That Apply Any of the Below Risk Factors Present?: Yes Each Factor Represents 1 point: Obesity (BMI >25), Serious lung disease incl. pneumonia (< 1month) Other Risk Factors: Yes Each Risk Factor Represents 3 Points: Age 75 years or older Other congenital or acquired thrombophilia - If yes, enter type in comment: No Thrombosis Risk Factor Assessment Total Risk Factor Score: 5 Thrombosis Risk Factor Assessment Level: High Risk Assessment and Plan Plan: Anemia, no evidence of bleeding at this time, patient has multiple bruises from recent fall Coagulopathy, INR >9 given vitamin K in ER, recheck INR in am Recent fall with multiple bruises with right upper extremity injury no evidence of fracture Underlying history of artificial aortic valve History of CKD History of stroke Previous history og GI bleed History of chronic congestive heart failure At this time admit patient to telemetry Check CBC CMP and INR in a.m. Hold Coumadin at this time Cardiology consult
[2021-08-12] MEDS: carvediloL 6.25 MG TAB PO SCH (19:50)
[2021-08-12] MEDS: ALPRAZolam 0.25 MG TAB PO SCH (19:50)
[2021-08-12] MEDS: FUROSEMIDE 40 MG TAB PO SCH (19:50)
[2021-08-12] MEDS: DOCUSATE 100 MG CAP PO SCH (19:50)
[2021-08-12 19:59] LABS: Anisocytosis Slight; Basophils # (A) 0.1 k/uL (0-0.2); Basophils % (A) 1 %; Eosinophils # (A) 0.2 k/uL (0-0.7); Eosinophils % (A) 2 %; HCT 20.6 % (34.0-46.0); Hypochromasia Marked; Lymphocytes # (A) 0.9 k/uL (1.0-4.8); Lymphocytes % (A) 9 %; MCH 27.6 pg (25.0-35.0); MCHC 30.1 g/dL (31.0-37.0); MCV 91.9 fL (80.0-100.0); Mean Platelet Volume 8.5; Monocytes # (A) 0.7 k/uL (0-1.0); Monocytes % (A) 7 %; Neutrophils # (A) 7.6 k/uL (1.3-7.7); Neutrophils % (A) 79 %; Platelet Count 197 k/uL (150-450); Poikilocytosis Slight; RBC 2.24 m/uL (3.80-5.40); RDW 18.1 % (11.5-15.5); WBC 9.6 k/uL (3.8-10.6)
[2021-08-12 20:01] LABS: HGB 6.2 gm/dL (11.4-16.0)
[2021-08-13] MEDS: ACETAMINOPHEN TAB 325 MG TAB PO PRN ×2 (05:08→11:33)
[2021-08-13] MEDS: carvediloL 6.25 MG TAB PO SCH ×2 (06:27→16:43)
[2021-08-13 08:11] LABS: Anisocytosis Slight; Basophils % (A) 1 %; Eosinophils # (A) 0.3 k/uL (0-0.7); Eosinophils % (A) 3 %; Hypochromasia Marked; Lymphocytes # (A) 0.8 k/uL (1.0-4.8); Lymphocytes % (A) 9 %; MCH 27.7 pg (25.0-35.0); MCHC 30.1 g/dL (31.0-37.0); MCV 91.9 fL (80.0-100.0); Mean Platelet Volume 8.9; Monocytes # (A) 0.6 k/uL (0-1.0); Monocytes % (A) 7 %; Neutrophils # (A) 6.7 k/uL (1.3-7.7); Neutrophils % (A) 79 %; Platelet Count 214 k/uL (150-450); Poikilocytosis Slight; RBC 2.04 m/uL (3.80-5.40); WBC 8.6 k/uL (3.8-10.6)
[2021-08-13 08:21] LABS: INR 2.4 (<1.2)
[2021-08-13 08:32] LABS: Albumin 2.5 g/dL (3.5-5.0); Calcium 10.5 mg/dL (8.4-10.2); Potassium 4.1 mmol/L (3.5-5.1); Total Bilirubin 1.4 mg/dL (0.2-1.3); Total Protein 5.6 g/dL (6.3-8.2)
[2021-08-13 08:34] LABS: HGB 5.7 gm/dL (11.4-16.0)
[2021-08-13 08:35] LABS: HCT 18.8 % (34.0-46.0)
[2021-08-13] MEDS ORDERED: ASPIRIN 81 MG PO SCH (09:00)
[2021-08-13] MEDS: PANTOPRAZOLE 40 MG/10 ML VIAL IV SCH ×2 (09:04→20:56)
[2021-08-13] MEDS: FAMOTIDINE 20 MG TAB PO SCH (09:05)
[2021-08-13] MEDS: DOCUSATE 100 MG CAP PO SCH ×2 (09:05→20:55)
[2021-08-13] MEDS: ALPRAZolam 0.25 MG TAB PO SCH (09:05)
[2021-08-13] MEDS: FUROSEMIDE 40 MG TAB PO SCH ×2 (09:05→16:42)
--- NOTE | 2021-08-13 10:02 | P.PN ---
Subjective Progress Note Date: 08/13/21 Alix Odonnell, he is a 76-year-old female who was at [facility] for rehab after a recent admission, patient had abnormal lab test that revealed a hemoglobin of 5 and elevated INR of 9, patient also had recent fall and multiple bruises, she was sent to [facility] for evaluation and treatment. She was evaluated in the emergency room vital examination on presentation re vealed a temperature of 98 pulse 60 respiration 16 blood pressure 134/100 pulse ox 100% on room air Laboratory data revealed a white blood count of 7.5 hemoglobin 5.4 platelet count 182 sodium 133 potassium 3.9 chloride 92 CO2 39 BUN 35 creatinine 1.20 Testing in the emergency room revealed elbow x-ray revealed no evidence of acute fracture or dislocation in the right elbow, EKG revealed electronic ventricular pacemaker with prolonged QT interval Patient was given vitamin K and red blood cell transfusion in the emergency room, she was admitted to medical floor for further evaluation and treatment, cardiology consultation was requested On 08/13/2021 patient is alert and oriented 3 sitting comfortably in bed. Hemoglobin 5.7. 1 more unit of PRBCs have been ordered. 20 mg IV Lasix also to be ordered after unit of blood. Patient complaining of increased pain to right hip will order x-ray to rule out fracture. Patient also requesting something for pain control. Will order Sylvester. This time patient denies chest pain or shortness breath. Patient denies nausea vomiting or diarrhea. Patient denies any urinary burning or frequency. INR today 2.4. Cardiology services have been consulted Objective - Vital Signs Vital signs: Vital Signs Temp 96.9 F L 08/13/21 09:11 Pulse 62 08/13/21 09:11 Resp 18 08/13/21 09:11 BP 123/51 08/13/21 09:11 Pulse Ox 100 08/13/21 09:11 Intake & Output 08/12/21 08/13/21 08/13/21 18:59 06:59 18:59 Intake Total 532 260 Output Total 0 Balance 532 260 Weight 81.647 kg Intake: IV 10 20 Invasive Line 1 10 10 Invasive Line 2 10 Oral 240 240 Blood Product 282 Rc Pheresis 2 As3 Unit 282 [id number] Output: Urine 0 Stool 0 Urine/Stool Mix 0 Other: Voiding Method Diaper Diaper Diaper Incontinent Incontinent Incontinent # Bowel Movements 0 - Exam In general patient is alert and oriented x 3 in no distress HEENT head normocephalic and atraumatic Neck is supple no JVD no goiter no lymphadenopathy no carotid bruit Chest examination is clear to auscultation no crackles no wheezing Cardiac exam reveals regular heart sounds S1 and S2 no gallops no murmurs Abdomen is soft nontender no organomegaly with normal bowel sounds Extremity exam reveals no edema no cyanosis or clubbing Neurological examination reveals no gross focal deficits - Labs CBC & Chem 7: 08/13/21 07:44 08/13/21 07:44 Labs: Abnormal Lab Results - Last 24 Hours (Table) 08/12/21 08/12/21 08/13/21 Range/Units 07:25 19:17 07:44 RBC 2.24 L 2.04 L (3.80-5.40) m/uL Hgb 6.2 L* 5.7 L* (11.4-16.0) gm/dL Hct 20.6 L 18.8 L* (34.0-46.0) % MCHC 30.1 L 30.1 L (31.0-37.0) g/dL RDW 18.1 H 18.0 H (11.5-15.5) % Lymphocytes # 0.9 L 0.8 L (1.0-4.8) k/uL PT (9.0-12.0) sec INR (<1.2) Sodium (137-145) mmol/L Chloride (98-107) mmol/L Carbon Dioxide (22-30) mmol/L BUN (7-17) mg/dL Creatinine (0.52-1.04) mg/dL Glucose (74-99) mg/dL Calcium (8.4-10.2) mg/dL Total Bilirubin (0.2-1.3) mg/dL Total Protein (6.3-8.2) g/dL Albumin (3.5-5.0) g/dL Crossmatch See Detail 08/13/21 08/13/21 Range/Units 07:44 07:44 RBC (3.80-5.40) m/uL Hgb (11.4-16.0) gm/dL Hct (34.0-46.0) % MCHC (31.0-37.0) g/dL RDW (11.5-15.5) % Lymphocytes # (1.0-4.8) k/uL PT 24.0 H (9.0-12.0) sec INR 2.4 H (<1.2) Sodium 131 L (137-145) mmol/L Chloride 90 L (98-107) mmol/L Carbon Dioxide 40 H (22-30) mmol/L BUN 41 H (7-17) mg/dL Creatinine 1.66 H (0.52-1.04) mg/dL Glucose 137 H (74-99) mg/dL Calcium 10.5 H (8.4-10.2) mg/dL Total Bilirubin 1.4 H (0.2-1.3) mg/dL Total Protein 5.6 L (6.3-8.2) g/dL Albumin 2.5 L (3.5-5.0) g/dL Crossmatch Assessment and Plan Plan: Anemia, no evidence of bleeding at this time, patient has multiple bruises from recent fall Coagulopathy, INR >9 given vitamin K in ER, recheck INR in am and recheck INR 2.4 Recent fall with multiple bruises with right upper extremity injury no evidence of fracture Underlying history of artificial aortic valve History of CKD History of stroke Previous history og GI bleed History of chronic congestive heart failure Right hip pain will order x-ray At this time admit patient to telemetry Check CBC CMP and INR in a.m. Hold Coumadin at this time Cardiology consult
[2021-08-13] MEDS: AMIODARONE 100 MG TAB PO SCH (10:18)
[2021-08-13] MEDS: HYDROcodone/APAP 5-325MG 1 EACH TAB PO PRN ×2 (10:18→20:55)
[2021-08-13] MEDS: IPRATROPIUM-ALBUTEROL 3 ML NEB INHALATION PRN ×2 (10:30→19:44)
--- NOTE | 2021-08-13 11:48 | P.CRDCN ---
History of Present Illness History of present illness: This is a 76-year-old female with a past medical history of type A aortic dissection in 1998 and aortic aneursym s/p bentall procedure w replacement of arch and elephant trunk in 2011, and repair in 2012, aortic stenosis status post mechanical aortic valve replacement in 1998, hypertension, dyslipidemia, left bundle-branch block, persistent atrial fibrillation, chronic congestive heart fa ilure, sick sinus syndrome status post dual chamber pacemaker implantation in 2014, chronic kidney disease. She follows in the office with Dr. Helton. We have been consulted for congestive heart failure and mechanical aortic valve. Patient presents to the emergency department due to abnormal labs. She presented from [facility], hemoglobin of 5 and elevated INR of 9. She states she did have a recent mechanical fall at [facility], was walking into the bathroom and slipped, felt as if her legs were weak. An employee helped her and she sustained multiple bruises to the right arm. Overall she has been having symptoms of lightheadedness and generalized weakness. She also has right hip/right knee eugene n, which she states is chronic. She denies any syncope or loss of consciousness. She denies chest pain, worsening shortness of breath, dizziness, palpitations. She denies any bleeding. No dark/tarry stools. On admission to the hospital patient found to have a hemoglobin of 5.4, INR greater than 10. Patient received 1 unit of PRBC and Vitamin K. repeat INR was 2.4 and repeat hemoglobin this morning 5.7 DIAGNOSTICS EKG underlying atrial fibrillation V paced rhythm LABS WBC 8.6, hemoglobin 5.7, platelets 214, INR 2.4, sodium 131, potassium 4.1, BUN 41, serum creatinine 1.6, albumin 2.5 Elbow xray right- no fracture or dislocation, mild to moderate diffuse subcutaneous edema, Current home cardiac medications include amiodarone 100 mg daily, aspirin 81 mg daily, carvedilol 6.25 mg twice a day, Coumadin 4 mg daily, Lasix 20 mg twice a day Echocardiogram 07/14/2021 revealed EF 5055%, moderate to severe mitral regurgitation, moderate tricuspid regurgitation, moderate to severe pulmonary hypertension with an RVSP of 53 mmHg. REVIEW OF SYSTEMS At the time of my exam: CONSTITUTIONAL: Denies fever or chills. CARDIOVASCULAR: Denies chest pain, shortness of breath, orthopnea, PND or palp itations. RESPIRATORY: Denies cough. GASTROINTESTINAL: Denies abdominal pain, diarrhea, constipation, nausea or vomiting. MUSCULOSKELETAL: Denies myalgias. NEUROLOGIC: Denies numbness, tingling, headacbe or weakness. ENDOCRINE: Denies fatigue, weight change, polydipsia or polyurina. GENITOURINARY: Denies burning, hematuria or urgency with micturation. HEMATOLOGIC: Denies bleeding. PHYSICAL EXAMINATION VITALS: Reviewed CONSTITUTIONAL: No apparent distress. HEENT: Head is normocephalic. Pupils are equal, round. Sclerae anicteric. Mucous membranes of the mouth are moist. No JVD. CHEST EXAMINATION: Lungs are diminished in bases bilaterally to auscultation. No chest wall tenderness is noted on palpation or with deep breathing. HEART EXAMINATION: Irregular rate and rhythm. S1, S2 heard. Systolic ejection murmur. Valve click oted ABDOMEN: Soft, nontender. Positive bowel sounds. EXTREMITIES: Diminished pedal peripheral pulses, trace lower extremity edema. Right arm significant swelling and bruising noted NEUROLOGIC EXAMINATION: Patient is awake, alert and oriented x3. ASSESSMENT Supratherapeutic INR, unclear what cause, treated with Vitamin K on admission. Amiodarone not new medication. Anemia s/p 1 unit PRBC, no evidence of bleeding at this time Recent mechanical fall, no syncope Acute on chronic kidney disease Chronic heart failure with preserved ejection fraction Status post mechanical aortic valve replacement in 1998 Sick sinus syndrome status post permanent pacemaker History of permanent atrial fibrillation was on coumadin outpatient History of AAA s/p repair Hypertenion Dyslipidemia PLAN Patient does need coumadin restarted due to mechanical valve, however will monitor hemoglobin, hopefully can restart tomorrow. Hold Aspirin Plan for additional 1unit PRBC today Continue carvedilol and amiodarone. Further recommendations based on clinical course Nurse Practitioner note has been reviewed, I agree with a documented findings and plan of care. Patient was seen and examined. Past Medical History Past Medical History: Atrial Fibrillation, Heart Failure, CVA/TIA, Hyperlipidemia, Hypertension, Memory Impairment, Osteoarthritis (OA), Pneumonia, Renal Disease, Vascular Disorder Additional Past Medical History / Comment(s): Afib with cardioversion, cardiomyopathy with BiV pacer, bronchitis, pulmonary HTN, chronic respiratory failure with oxygen ATC, systolic CHF, bilateral leg edema, past abdominal aortic dissection with repairs, CVA post op aneurysm repair with mild L sided weakness/memory impairment, CKD stage IV, nephrolithiasis/surgically removed, UTIs, lower GI bleed, chronic anemia, colitis or diverticulitis, chronic wound L lower extremity/healed now, essential tremors History of Any Multi-Drug Resistant Organisms: None Reported Past Surgical History: Back Surgery, Heart Catheterization, Pacemaker Additional Past Surgical History / Comment(s): 1998 aortic disection repair/ five aneurysm ascending and descending aorta, aortic valve replacement(MECHANICAL VALVE), CYST AT END OF SPINE REMOVED. CARDIAC CATHETERIZATION WHICH WAS NORMAL. biventricular pacer placed in 08/2014 - pacer is on right side of chest - physician unable to get into left, lithotripsy/double J stent, voice change/difficult to understand d/t vocal cord paralysis thought d/t intubations. Past Anesthesia/Blood Transfusion Reactions: No Reported Reaction Type of Cardiac Device: Biventricular Pacemaker Device Placement Date:: 08/2014 Smoking Status: Never smoker - Past Family History Father History Unknown: Yes Family Medical History: AFIB, Congestive Heart Failure (CHF) Additional Family Medical History / Comment(s): FATHER AT AGE 73 OF CHF. Mother History Unknown: Yes Additional Family Medical History / Comment(s): MOTHER AT AGE 78 OF SEPTIC SHOCK UNKNOWN SOURCE. Medications and Allergies Home Medications Medication Instructions Recorded Confirmed Type ALPRAZolam [Xanax] 0.25 mg PO DAILY 07/13/21 08/12/21 History Aspirin 81 mg PO DAILY 07/13/21 08/12/21 History Famotidine 20 mg PO DAILY 07/13/21 08/12/21 History Furosemide [Lasix] 40 mg PO BID 07/13/21 08/12/21 History Amiodarone [Cordarone] 100 mg PO DAILY tab 07/22/21 08/12/21 Rx Docusate [Colace] 100 mg PO BID cap 07/22/21 08/12/21 Rx Ipratropium-Albuterol Nebulize 3 ml INHALATION RT-QID PRN ml 07/22/21 08/12/21 Rx [Duoneb 0.5 mg-3 mg/3 ml Soln] carvediloL [Coreg] 6.25 mg PO AC-BID tab 07/22/21 08/12/21 Rx Acetaminophen Tab [Tylenol] 650 mg PO Q4H PRN 08/12/21 08/12/21 History Enoxaparin [Lovenox] 80 mg SQ BID@0800,2000 08/12/21 08/12/21 History Magnesium Hydroxide [Milk of 2,400 mg PO Q72H PRN 08/12/21 08/12/21 History Magnesia] Na Phos,M-B/Na Phos,Di-Ba [Fleet 133 ml RECTAL DAILY PRN 08/12/21 08/12/21 History Adult] Sodium Chloride [Saline Nasal 1 spray EA NOSTRIL Q2H PRN 08/12/21 08/12/21 History Tucker] Warfarin [Coumadin] 4 mg PO DAILY@1700 08/12/21 08/12/21 History bisacodyL [Dulcolax] 10 mg RECTAL DAILY PRN 08/12/21 08/12/21 History Allergies Allergy/AdvReac Type Severity Reaction Status Date / Time amoxicillin AdvReac Nausea & Verified 08/12/21 07:00 Vomiting & Diarrhea levofloxacin [From Levaquin] AdvReac Rash/Hives Verified 08/12/21 07:00 Penicillins AdvReac Nausea & Verified 08/12/21 07:00 Vomiting & Diarrhea silver sulfadiazine AdvReac Unknown Verified 08/12/21 07:00 [From Silvadene] Physical Exam Vitals: Vital Signs Temp Pulse Pulse Resp BP BP Pulse Ox 08/13/21 04:55 97.7 F 64 18 113/53 98 08/13/21 00:15 63 17 115/63 99 08/12/21 19:30 98 F 60 18 104/51 99 08/12/21 17:15 97.1 F L 60 18 133/50 100 08/12/21 15:02 97.1 F L 62 16 96/41 100 08/12/21 13:46 97.6 F 60 97/41 100 08/12/21 13:16 97.4 F L 60 98/48 100 08/12/21 13:06 98.2 F 60 18 95/41 100 08/12/21 10:35 60 14 99/48 100 08/12/21 08:20 98.5 F 60 20 99/37 100 Intake and Output 08/12/21 08/13/21 08/13/21 22:59 06:59 14:59 Intake Total 250 Balance 250 Intake: IV 10 Invasive Line 1 10 Oral 240 Other: Voiding Method Diaper Diaper Incontinent Incontinent Weight 81.647 kg Results 08/13/21 07:44 08/13/21 07:44 Cardiac Enzymes 08/12/21 08/12/21 Range/Units 06:45 06:45 AST 29 (14-36) U/L Troponin I 0.058 H* (0.000-0.034) ng/mL Coagulation 08/12/21 Range/Units 06:45 PT 103.4 H (9.0-12.0) sec APTT 57.1 H (22.0-30.0) sec CBC 08/12/21 08/12/21 Range/Units 06:45 19:17 WBC 7.5 9.6 (3.8-10.6) k/uL RBC 2.03 L 2.24 L (3.80-5.40) m/uL Hgb 5.4 L* D 6.2 L* (11.4-16.0) gm/dL Hct 18.0 L* 20.6 L (34.0-46.0) % Plt Count 182 197 (150-450) k/uL Comprehensive Metabolic Panel 08/12/21 Range/Units 06:45 Sodium 133 L (137-145) mmol/L Potassium 3.9 (3.5-5.1) mmol/L Chloride 92 L (98-107) mmol/L Carbon Dioxide 39 H (22-30) mmol/L BUN 35 H (7-17) mg/dL Creatinine 1.29 H (0.52-1.04) mg/dL Glucose 101 H (74-99) mg/dL Calcium 10.6 H (8.4-10.2) mg/dL AST 29 (14-36) U/L ALT 8 (4-34) U/L Alkaline Phosphatase 62 (38-126) U/L Total Protein 5.8 L (6.3-8.2) g/dL Albumin 2.6 L (3.5-5.0) g/dL Current Medications Generic Name Dose Route Start Last Admin Trade Name Freq PRN Reason Stop Dose Admin Acetaminophen 650 mg 08/12/21 08:50 08/12/21 10:33 Acetaminophen Tab 325 Mg Tab PO 650 mg Q6HR PRN Administration Mild Pain or Fever > 100.5 Acetaminophen 650 mg 08/12/21 18:53 08/13/21 05:08 Acetaminophen Tab 325 Mg Tab PO 650 mg Q4H PRN Administration Mild Pain Albuterol/Ipratropium 3 ml 08/12/21 18:53 Ipratropium-Albuterol 3 Ml Neb INHALATION RT-QID PRN Shortness Of Breath Or Wheezing Alprazolam 0.25 mg 08/12/21 19:15 08/12/21 19:50 Alprazolam 0.25 Mg Tab PO 0.25 mg DAILY [place] Administration Amiodarone HCl 100 mg 08/13/21 09:00 Amiodarone 100 Mg Tab PO DAILY [facility] Aspirin 81 mg 08/13/21 09:00 Aspirin 81 Mg PO DAILY [facility] Bisacodyl 10 mg 08/12/21 18:53 Bisacodyl 10 Mg Supp RECTAL DAILY PRN Constipation Carvedilol 6.25 mg 08/12/21 19:15 08/13/21 06:27 Carvedilol 6.25 Mg Tab PO 6.25 mg AC-BID [facility] Administration Docusate Sodium 100 mg 08/12/21 21:00 08/12/21 19:50 Docusate 100 Mg Cap PO 100 mg BID [facility] Administration Famotidine 20 mg 08/13/21 09:00 Famotidine 20 Mg Tab PO DAILY [facility] Furosemide 40 mg 08/12/21 19:15 08/12/21 19:50 Furosemide 40 Mg Tab PO 40 mg BID@0900,1600 [facility] Administration Magnesium Hydroxide 2,400 mg 08/12/21 18:53 Magnesium Hydroxide 2,400 Mg/10 Ml Cup PO Q72H PRN Constipation Naloxone HCl 0.2 mg 08/12/21 08:50 Naloxone 0.4 Mg/Ml 1 Ml Vial IV Q2M PRN Opioid Reversal Ondansetron HCl 4 mg 08/12/21 08:50 Ondansetron 4 Mg/2 Ml Vial IVP Q8HR PRN Nausea And Vomiting Pantoprazole Sodium 40 mg 08/12/21 09:00 08/12/21 19:50 Pantoprazole 40 Mg/10 Ml Vial IV 40 mg BID [place] Administration Sodium Biphosphate/Sodium Phosphate 133 ml 08/12/21 18:53 Na Phos,M-B/Na Phos,Di-Ba 133 Ml Enema RECTAL DAILY PRN Constipation Sodium Chloride 1 applic 08/12/21 10:28 Saline Nasal Gel 14.1 Gm Tube NASAL Q4HR PRN Dry Nasal Passages Intake and Output 08/12/21 08/13/21 08/13/21 22:59 06:59 14:59 Intake Total 250 Balance 250 Intake: IV 10 Invasive Line 1 10 Oral 240 Other: Voiding Method Diaper Diaper Incontinent Incontinent Weight 81.647 kg 08/12/21 19:17 08/12/21 06:45
[2021-08-13] MEDS ORDERED: FUROSEMIDE 10 MG/ML 2 ML VIAL IV ONE ×2 (12:00→23:25)
--- NOTE | 2021-08-13 18:33 | XR ---
EXAMINATION TYPE: XR Hip Complete RT DATE OF EXAM: 08/13/2021 COMPARISON: NONE HISTORY: Fall. Hip pain TECHNIQUE: 2 view FINDINGS: I see no fracture nor dislocation. Acetabulum is intact. Proximal femur is intact. IMPRESSION: No fracture seen.
[2021-08-13 23:13] LABS: Anisocytosis Slight; Hypochromasia Marked; MCHC 30.4 g/dL (31.0-37.0); MCV 92.4 fL (80.0-100.0); Mean Platelet Volume 8.4; Platelet Count 200 k/uL (150-450); Poikilocytosis Slight; RBC 2.15 m/uL (3.80-5.40); RDW 17.5 % (11.5-15.5); WBC 12.3 k/uL (3.8-10.6)
[2021-08-13 23:15] LABS: HCT 19.8 % (34.0-46.0)
[2021-08-14] MEDS: FAMOTIDINE 20 MG TAB PO SCH (08:15)
[2021-08-14] MEDS: DOCUSATE 100 MG CAP PO SCH ×2 (08:15→20:26)
[2021-08-14] MEDS: FUROSEMIDE 40 MG TAB PO SCH ×2 (08:15→17:09)
[2021-08-14] MEDS: ALPRAZolam 0.25 MG TAB PO SCH (08:15)
[2021-08-14] MEDS: ACETAMINOPHEN TAB 325 MG TAB PO PRN ×2 (08:15→20:26)
[2021-08-14] MEDS: carvediloL 6.25 MG TAB PO SCH ×2 (08:15→17:09)
[2021-08-14] MEDS: AMIODARONE 100 MG TAB PO SCH (08:16)
[2021-08-14] MEDS: PANTOPRAZOLE 40 MG/10 ML VIAL IV SCH ×2 (08:16→20:26)
[2021-08-14 08:32] LABS: Anisocytosis Slight; Basophils % (A) 0 %; Eosinophils # (A) 0.4 k/uL (0-0.7); Eosinophils % (A) 4 %; HCT 24.4 % (34.0-46.0); HGB 7.4 gm/dL (11.4-16.0); Hypochromasia Marked; Lymphocytes # (A) 0.6 k/uL (1.0-4.8); Lymphocytes % (A) 5 %; MCH 28.8 pg (25.0-35.0); MCHC 30.4 g/dL (31.0-37.0); MCV 94.7 fL (80.0-100.0); Mean Platelet Volume 9.1; Monocytes # (A) 0.6 k/uL (0-1.0); Monocytes % (A) 6 %; Neutrophils # (A) 8.7 k/uL (1.3-7.7); Neutrophils % (A) 84 %; Platelet Count 182 k/uL (150-450); Poikilocytosis Slight; RBC 2.58 m/uL (3.80-5.40); RDW 16.5 % (11.5-15.5); WBC 10.4 k/uL (3.8-10.6)
[2021-08-14 08:39] LABS: INR 1.5 (<1.2); Prothrombin Time 15.6 sec (9.0-12.0)
[2021-08-14 08:49] LABS: Albumin 2.5 g/dL (3.5-5.0); Potassium 4.2 mmol/L (3.5-5.1); Total Bilirubin 1.4 mg/dL (0.2-1.3); Total Protein 5.8 g/dL (6.3-8.2)
--- NOTE | 2021-08-14 12:30 | P.PN ---
Subjective This is a 76-year-old female with a past medical history of type A aortic dissection in 1998 and aortic aneursym s/p bentall procedure w replacement of arch and elephant trunk in 2011, and repair in 2012, aortic stenosis status post mechanical aortic valve replacement in 1998, hypertension, dyslipidemia, left bundle-branch block, persistent atrial fibrillation, chronic congestive heart failure, sick sinus syndrome status post dual chamber pacemaker implantation in 2014, chronic kidney disease. She follows in the office with Dr. Helton. Vipul spangler been consulted for congestive heart failure and mechanical aortic valve. Patient presents to the emergency department due to abnormal labs. She presented from [facility], hemoglobin of 5 and elevated INR of 9. She states she did have a recent mechanical fall at [facility], was walking into the bathroom and slipped, felt as if her legs were weak. An employee helped her and she sustained multiple bruises to the right arm. Overall she has been having symptoms of lightheadedness and generalized weakness. She also has right hip/right knee pain, which she states is chronic. She denies any syncope or loss of consciousness. She denies chest pain, worsening shortness of breath, dizziness, palpitations. She denies any bleeding. No dark/tarry stools. On admission to the hospital patient found to have a hemoglobin of 5.4, INR greater than 10. Patient received 1 unit of PRBC and Vitamin K. repeat INR was 2.4 and repeat hemoglobin this morning 5.7 Echocardiogram 07/14/2021 revealed EF 5055%, moderate to severe mitral regurgitation, moderate tricuspid regurgitation, moderate to severe pulmonary hypertension with an RVSP of 53 mmHg. 08/14/2021 Patient seen and at bedside, no acute distress. She denies any chest pain or shortness of breath. Continues to have right hip and right knee pain. No evidence of bleeding at this time. She has received a total of 3 units of PRBCs with a hemoglobin of 7.4 today. INR is 1.5. Renal function is improved with a serum creatinine 1.48 Her Coumadin continues to be on hold. She's currently maintained on amiodarone 100 mg daily, carvedilol 6.25 mg twice a day, PO Lasix 40 mg twice a day PHYSICAL EXAMINATION VITALS: Reviewed CONSTITUTIONAL: No apparent distress. HEENT: Neck Supple. No JVD CHEST EXAMINATION: Lungs are diminished in bases bilaterally to auscultation. No chest wall tenderness is noted on palpation or with deep breathing. HEART EXAMINATION: Irregular rate and rhythm. S1, S2 heard. Systolic ejection murmur. Valve click noted ABDOMEN: Soft, nontender. Positive bowel sounds. EXTREMITIES: Diminished pedal peripheral pulses, trace lower extremity edema. Right arm significant swelling and bruising noted NEUROLOGIC EXAMINATION: Patient is awake, alert and oriented x3. ASSESSMENT Supratherapeutic INR, unclear what cause, treated with Vitamin K on admission. Amiodarone not new medication. Anemia s/p 1 unit PRBC, no evidence of bleeding at this time Recent mechanical fall, no syncope Acute on chronic kidney disease Chronic heart failure with preserved ejection fraction Status post mechanical aortic valve replacement in 1998 Sick sinus syndrome status post permanent pacemaker History of permanent atrial fibrillation was on coumadin outpatient History of AAA s/p repair Hypertenion Dyslipidemia PLAN Recommend starting coumadin at 2mg tonight due to mechanical valve and INR 1.5. Hemoglobin improved. Monitor PT/INR and hemoglobin Discontinue Aspirin Continue carvedilol and amiodarone. Further recommendations based on clinical course Nurse Practitioner note has been reviewed, I agree with a documented findings and plan of care. Patient was seen and examined. Objective - Vital Signs Vital signs: Vital Signs Temp 98.3 F 08/14/21 08:08 Pulse 69 08/14/21 08:08 Resp 16 08/14/21 08:08 BP 103/61 08/14/21 08:08 Pulse Ox 99 08/14/21 08:08 Intake & Output 08/13/21 08/14/21 08/14/21 18:59 06:59 18:59 Intake Total 1050 340 240 Output Total 0 500 100 Balance 1050 -160 140 Weight 81.647 kg 70.1 kg Intake: IV 20 30 Invasive Line 1 10 30 Invasive Line 2 10 Oral 720 240 Blood Product 310 310 Rc As-1 Unit 310 [id number] Rc As-1 Unit 310 [id number] Output: Urine 0 500 100 Stool 0 0 Urine/Stool Mix 0 Other: Voiding Method Self-Catheterization External Catheter External Catheter # Bowel Movements 0 - Labs CBC & Chem 7: 08/14/21 07:50 08/14/21 07:50 Labs: Abnormal Lab Results - Last 24 Hours (Table) 08/12/21 08/13/21 08/14/21 Range/Units 07:25 22:50 07:50 WBC 12.3 H (3.8-10.6) k/uL RBC 2.15 L 2.58 L (3.80-5.40) m/uL Hgb 6.0 L* 7.4 L (11.4-16.0) gm/dL Hct 19.8 L* 24.4 L (34.0-46.0) % MCHC 30.4 L 30.4 L (31.0-37.0) g/dL RDW 17.5 H 16.5 H (11.5-15.5) % Neutrophils # 8.7 H (1.3-7.7) k/uL Lymphocytes # 0.6 L (1.0-4.8) k/uL PT (9.0-12.0) sec INR (<1.2) Sodium (137-145) mmol/L Chloride (98-107) mmol/L Carbon Dioxide (22-30) mmol/L BUN (7-17) mg/dL Creatinine (0.52-1.04) mg/dL Glucose (74-99) mg/dL Total Bilirubin (0.2-1.3) mg/dL Total Protein (6.3-8.2) g/dL Albumin (3.5-5.0) g/dL Crossmatch See Detail 08/14/21 08/14/21 Range/Units 07:50 07:50 WBC (3.8-10.6) k/uL RBC (3.80-5.40) m/uL Hgb (11.4-16.0) gm/dL Hct (34.0-46.0) % MCHC (31.0-37.0) g/dL RDW (11.5-15.5) % Neutrophils # (1.3-7.7) k/uL Lymphocytes # (1.0-4.8) k/uL PT 15.6 H (9.0-12.0) sec INR 1.5 H (<1.2) Sodium 130 L (137-145) mmol/L Chloride 90 L (98-107) mmol/L Carbon Dioxide 39 H (22-30) mmol/L BUN 45 H (7-17) mg/dL Creatinine 1.48 H (0.52-1.04) mg/dL Glucose 141 H (74-99) mg/dL Total Bilirubin 1.4 H (0.2-1.3) mg/dL Total Protein 5.8 L (6.3-8.2) g/dL Albumin 2.5 L (3.5-5.0) g/dL Crossmatch
--- NOTE | 2021-08-14 16:51 | P.PN ---
Subjective Progress Note Date: 08/14/21 Alix Odonnell, he is a 76-year-old female who was at [facility] for rehab after a recent admission, patient had abnormal lab test that revealed a hemoglobin of 5 and elevated INR of 9, patient also had recent fall and multiple bruises, she was sent to [facility] for evaluation and treatment. She was evaluated in the emergency room vital examination on presentation re vealed a temperature of 98 pulse 60 respiration 16 blood pressure 134/100 pulse ox 100% on room air Laboratory data revealed a white blood count of 7.5 hemoglobin 5.4 platelet count 182 sodium 133 potassium 3.9 chloride 92 CO2 39 BUN 35 creatinine 1.20 Testing in the emergency room revealed elbow x-ray revealed no evidence of acute fracture or dislocation in the right elbow, EKG revealed electronic ventricular pacemaker with prolonged QT interval Patient was given vitamin K and red blood cell transfusion in the emergency room, she was admitted to medical floor for further evaluation and treatment, cardiology consultation was requested On 08/13/2021 patient is alert and oriented 3 sitting comfortably in bed. Hemoglobin 5.7. 1 more unit of PRBCs have been ordered. 20 mg IV Lasix also to be ordered after unit of blood. Patient complaining of increased pain to right hip will order x-ray to rule out fracture. Patient also requesting something for pain control. Will order [place]. This time patient denies chest pain or shortness breath. Patient denies nausea vomiting or diarrhea. Patient denies any urinary burning or frequency. INR today 2.4. Cardiology services have been consulted On 08/14/2021 patient was seen and examined on the medical floor she is alert and oriented 3 in no apparent distress there is no fever or chills no headache or dizziness no chest pain no shortness of breath no cough no nausea or vomiting no abdominal pain no diarrhea no blood in the stools no burning with urination no frequency or urgency and no hematuria Objective - Vital Signs Vital signs: Vital Signs Temp 98.3 F 08/14/21 08:08 Pulse 69 08/14/21 08:08 Resp 18 08/14/21 12:00 BP 84/48 08/14/21 12:00 Pulse Ox 100 08/14/21 12:00 Intake & Output 02/16/22 02/17/22 02/17/22 18:59 06:59 18:59 Intake Total 6670 425 3701 Output Total 0 500 350 Balance 1050 -160 730 Weight 81.647 kg 70.1 kg Intake: IV 20 30 Invasive Line 1 10 30 Invasive Line 2 10 Oral 720 1080 Blood Product 310 310 Rc As-1 Unit 310 [id number] Rc As-1 Unit 310 [id number] Output: Urine 0 500 350 Stool 0 0 Urine/Stool Mix 0 Other: Voiding Method Self-Catheterization External Catheter External Catheter External Catheter # Bowel Movements 0 - Exam In general patient is alert and oriented x 3 in no distress HEENT head normocephalic and atraumatic Neck is supple no JVD no goiter no lymphadenopathy no carotid bruit Chest examination is clear to auscultation no crackles no wheezing Cardiac exam reveals regular heart sounds S1 and S2 no gallops no murmurs Abdomen is soft nontender no organomegaly with normal bowel sounds Extremity exam reveals no edema no cyanosis or clubbing Neurological examination reveals no gross focal deficits - Labs CBC & Chem 7: 08/14/21 07:50 08/14/21 07:50 Labs: Abnormal Lab Results - Last 24 Hours (Table) 08/12/21 08/13/21 08/14/21 Range/Units 07:25 22:50 07:50 WBC 12.3 H (3.8-10.6) k/uL RBC 2.15 L 2.58 L (3.80-5.40) m/uL Hgb 6.0 L* 7.4 L (11.4-16.0) gm/dL Hct 19.8 L* 24.4 L (34.0-46.0) % MCHC 30.4 L 30.4 L (31.0-37.0) g/dL RDW 17.5 H 16.5 H (11.5-15.5) % Neutrophils # 8.7 H (1.3-7.7) k/uL Lymphocytes # 0.6 L (1.0-4.8) k/uL PT (9.0-12.0) sec INR (<1.2) Sodium (137-145) mmol/L Chloride (98-107) mmol/L Carbon Dioxide (22-30) mmol/L BUN (7-17) mg/dL Creatinine (0.52-1.04) mg/dL Glucose (74-99) mg/dL Total Bilirubin (0.2-1.3) mg/dL Total Protein (6.3-8.2) g/dL Albumin (3.5-5.0) g/dL Crossmatch See Detail 08/14/21 08/14/21 Range/Units 07:50 07:50 WBC (3.8-10.6) k/uL RBC (3.80-5.40) m/uL Hgb (11.4-16.0) gm/dL Hct (34.0-46.0) % MCHC (31.0-37.0) g/dL RDW (11.5-15.5) % Neutrophils # (1.3-7.7) k/uL Lymphocytes # (1.0-4.8) k/uL PT 15.6 H (9.0-12.0) sec INR 1.5 H (<1.2) Sodium 130 L (137-145) mmol/L Chloride 90 L (98-107) mmol/L Carbon Dioxide 39 H (22-30) mmol/L BUN 45 H (7-17) mg/dL Creatinine 1.48 H (0.52-1.04) mg/dL Glucose 141 H (74-99) mg/dL Total Bilirubin 1.4 H (0.2-1.3) mg/dL Total Protein 5.8 L (6.3-8.2) g/dL Albumin 2.5 L (3.5-5.0) g/dL Crossmatch Assessment and Plan Plan: Anemia, no evidence of bleeding at this time, patient has multiple bruises from recent fall Coagulopathy, INR >9 given vitamin K in ER, recheck INR in am and recheck INR 2.4 Recent fall with multiple bruises with right upper extremity injury no evidence of fracture Underlying history of artificial aortic valve History of CKD History of stroke Previous history og GI bleed History of chronic congestive heart failure Right hip pain will order x-ray At this time admit patient to telemetry Check CBC CMP and INR in a.m. Hold Coumadin at this time Cardiology consult
[2021-08-14] MEDS: HYDROcodone/APAP 5-325MG 1 EACH TAB PO PRN (17:08)
[2021-08-14] MEDS: WARFARIN 2 MG TAB PO SCH (17:09)
[2021-08-15] MEDS: ALPRAZolam 0.25 MG TAB PO SCH (07:40)
[2021-08-15] MEDS: carvediloL 6.25 MG TAB PO SCH ×2 (07:41→17:33)
[2021-08-15] MEDS: FAMOTIDINE 20 MG TAB PO SCH (07:41)
[2021-08-15] MEDS: PANTOPRAZOLE 40 MG/10 ML VIAL IV SCH ×2 (07:41→20:52)
[2021-08-15] MEDS: DOCUSATE 100 MG CAP PO SCH ×2 (07:41→20:52)
[2021-08-15] MEDS: AMIODARONE 100 MG TAB PO SCH (07:41)
[2021-08-15] MEDS: FUROSEMIDE 40 MG TAB PO SCH ×2 (07:42→15:54)
[2021-08-15] MEDS: ACETAMINOPHEN TAB 325 MG TAB PO PRN (08:54)
--- NOTE | 2021-08-15 09:21 | P.PN ---
Subjective Progress Note Date: 08/15/21 The pleasant 76-year-old female patient with history of mechanical aortic valve replacement in 1998, chronic diastolic heart failure, hypertension, chronic aortic dissection, persistent atrial fibrillation, and hyperlipidemia, also status post pacemaker implantation in 2014. Presented to the hospital from [facility] with coagulopathy, INR 9, on coumadin and anemia with a hemoglobin of 5. She received one unit of packed red blood cells as well as vitamin K. INR was 1.5 and hemoglobin was 7.4 yesterday. She received 2 mg of Coumadin yesterday. Labs from this morning are pending. Overall she's feeling fairly well. She denies any complaints of chest discomfort. Denies any shortness of breath. Does complain of some mild dizziness and lightheadedness at times. She has no orthopnea or PND. Her edema is stable. Objective - Vital Signs Vital signs: Vital Signs Temp 97.9 F 08/15/21 04:25 Pulse 103 H 08/15/21 06:55 Resp 16 08/15/21 06:55 BP 112/66 08/15/21 06:55 Pulse Ox 99 08/15/21 07:18 Intake & Output 08/14/21 08/15/21 08/15/21 18:59 06:59 18:59 Intake Total 1260 240 Output Total 350 Balance 910 240 Weight 66 kg Intake: Oral 1260 240 Output: Urine 350 Other: Voiding Method External Catheter External Catheter - Exam PHYSICAL EXAMINATION: HEENT: Head is atraumatic, normocephalic. Pupils equal, round. Neck is supple. There is no elevated jugular venous pressure. HEART EXAMINATION: Heart sounds irregular rate and rhythm, S1 and S2. Mechanical valve click crisp. CHEST EXAMINATION: Lungs are clear to auscultation. No chest wall tenderness is noted on palpation or with deep breathing. ABDOMEN: Soft, nontender. Bowel sounds are heard. No organomegaly noted. EXTREMITIES: Diminished peripheral pulses with evidence of trace to mild peripheral edema and no calf tenderness noted. NEUROLOGIC patient is awake, alert and oriented x3. . - Labs CBC & Chem 7: 08/14/21 07:50 08/14/21 07:50 Assessment and Plan Assessment: Supratherapeutic INR Anemia s/p 1 unit PRBC, no evidence of bleeding at this time Recent mechanical fall, no syncope Acute on chronic kidney disease Chronic heart failure with preserved ejection fraction Status post mechanical aortic valve replacement in 1998 Sick sinus syndrome status post permanent pacemaker History of permanent atrial fibrillation was on coumadin outpatient History of AAA s/p repair Hypertenion Dyslipidemia Plan: From air plant engineer perspective Coumadin dosing to be based off labs from this morning. Awaiting repeat hemoglobin and INR. Other Medications reviewed and we'll continue the same. We will continue to follow the patient and provide further recommendations accordingly. HEAD OF [employer] note has been reviewed, I agree with a documented findings and plan of care. Patient was seen and examined.
--- NOTE | 2021-08-15 10:04 | P.PN ---
Subjective Progress Note Date: 08/15/21 Alix Odonnell, he is a 76-year-old female who was at [facility] for rehab after a recent admission, patient had abnormal lab test that revealed a hemoglobin of 5 and elevated INR of 9, patient also had recent fall and multiple bruises, she was sent to [facility] for evaluation and treatment. She was evaluated in the emergency room vital examination on presentation re vealed a temperature of 98 pulse 60 respiration 16 blood pressure 134/100 pulse ox 100% on room air Laboratory data revealed a white blood count of 7.5 hemoglobin 5.4 platelet count 182 sodium 133 potassium 3.9 chloride 92 CO2 39 BUN 35 creatinine 1.20 Testing in the emergency room revealed elbow x-ray revealed no evidence of acute fracture or dislocation in the right elbow, EKG revealed electronic ventricular pacemaker with prolonged QT interval Patient was given vitamin K and red blood cell transfusion in the emergency room, she was admitted to medical floor for further evaluation and treatment, cardiology consultation was requested On 08/13/2021 patient is alert and oriented 3 sitting comfortably in bed. Hemoglobin 5.7. 1 more unit of PRBCs have been ordered. 20 mg IV Lasix also to be ordered after unit of blood. Patient complaining of increased pain to right hip will order x-ray to rule out fracture. Patient also requesting something for pain control. Will order [place]. This time patient denies chest pain or shortness breath. Patient denies nausea vomiting or diarrhea. Patient denies any urinary burning or frequency. INR today 2.4. Cardiology services have been consulted On 08/14/2021 patient was seen and examined on the medical floor she is alert and oriented 3 in no apparent distress there is no fever or chills no headache or dizziness no chest pain no shortness of breath no cough no nausea or vomiting no abdominal pain no diarrhea no blood in the stools no burning with urination no frequency or urgency and no hematuria On 08/15/2021 patient is alert and oriented 3. Patient currently resting comfortably in bed. Awaiting lab results. Patient was started back on Coumadin 2 mg history per cardiology. No signs of hematuria for GI bleed. Patient d enies chest pain or shortness of breath. Patient denies nausea vomiting or diarrhea. Patient denies any urinary burning or frequency Objective - Vital Signs Vital signs: Vital Signs Temp 97.9 F 08/15/21 04:25 Pulse 103 H 08/15/21 06:55 Resp 16 08/15/21 06:55 BP 112/66 08/15/21 06:55 Pulse Ox 99 08/15/21 07:18 Intake & Output 08/14/21 08/15/21 08/15/21 18:59 06:59 18:59 Intake Total 1260 240 Output Total 350 Balance 910 240 Weight 66 kg Intake: Oral 1260 240 Output: Urine 350 Other: Voiding Method External Catheter External Catheter - Exam In general patient is alert and oriented x 3 in no distress HEENT head normocephalic and atraumatic Neck is supple no JVD no goiter no lymphadenopathy no carotid bruit Chest examination is clear to auscultation no crackles no wheezing Cardiac exam reveals regular heart sounds S1 and S2 no gallops no murmurs Abdomen is soft nontender no organomegaly with normal bowel sounds Extremity exam reveals no edema no cyanosis or clubbing Neurological examination reveals no gross focal deficits - Labs CBC & Chem 7: 08/14/21 07:50 08/14/21 07:50 Assessment and Plan Plan: Anemia, no evidence of bleeding at this time, patient has multiple bruises from recent fall Coagulopathy, INR >9 given vitamin K in ER, recheck INR in am and recheck INR 2.4. Recent fall with multiple bruises with right upper extremity injury no evidence of fracture Underlying history of artificial aortic valve History of CKD History of stroke Previous history of GI bleed History of chronic congestive heart failure Right hip pain will order x-ray At this time admit patient to telemetry contiue monitoring CBC and INR She has been restarted back on Coumadin per cardiology Cardiology consult
[2021-08-15 10:56] LABS: Albumin 2.6 g/dL (3.8-4.9); Albumin/Globulin Ratio 0.94 (1.60-3.17); Anion Gap 7.8 mmol/L (10.00-18.00); BUN/Creat Ratio 24.01 Ratio (12.00-20.00); Blood Urea Nitrogen 37.7 mg/dL (9.0-27.0); Calcium 10.1 mg/dL (8.7-10.3); Carbon Dioxide 34.8 mmol/L (20.0-27.5); Globulin 2.7 g/dL (1.6-3.3); Non-African American GFR(CKD) 31.9 (60.0-200.0); Potassium 4.3 mmol/L (3.5-5.5); Total Bilirubin 0.8 mg/dL (0.30-1.20); Total Protein 5.3 g/dL (6.2-8.2)
[2021-08-15 11:31] LABS: Basophils # (A) 0.03 X 10*3/uL (0.00-0.10); Basophils % (A) 0.5 %; Eosinophils # (A) 0.26 X 10*3/uL (0.04-0.35); Eosinophils % (A) 4.1 %; Immature Grans, Automated 0.5 %; Lymphocytes # (A) 0.66 X 10*3/uL (0.90-5.00); Lymphocytes % (A) 10.5 %; Monocytes # (A) 0.89 X 10*3/uL (0.20-1.00); Monocytes % (A) 14.1 %; NRBC Per 100 WBC 0 /100 WBCS (0.0-0.0); Neutrophils # (A) 4.43 X 10*3/uL (1.80-7.70); Neutrophils % (A) 70.3 %
[2021-08-15 11:38] LABS: HCT 20.8 % (37.2-46.3); MCH 27.5 pg (27.0-32.0); MCHC 28.8 g/dL (32.0-37.0); MCV 95.4 fL (80.0-97.0); Mean Platelet Volume 12.1 fL (9.5-12.2); Platelet Count 159 X 10*3/uL (140-440); RBC 2.18 X 10*6/uL (4.10-5.20); RDW 16.6 % (11.5-14.5)
[2021-08-15 11:39] LABS: Hypochromasia (M) 2+
[2021-08-15 12:10] LABS: Amorphous Sediment,Urine Rare /hpf; Appearance,Urine Turbid (Clear); Bacteria,Urine Many /hpf; Bilirubin,Urine Negative (Negative); Blood,Urine Small (Negative); Color,Urine Yellow; Glucose,Urine (UA) Negative (Negative); Ketones,Urine Negative (Negative); Leukocyte Esterase,Urine Large (Negative); Mucus,Urine Rare /hpf; Nitrite,Urine Negative (Negative); PH, Urine 8.5 (5.0-8.0); Protein,Urine 2+ (Negative); RBC,Urine 42 /hpf (0-5); Specific Gravity,Urine 1.014 (1.001-1.035); Urobilinogen,Urine <2.0 mg/dL (<2.0); WBC,Urine 179 /hpf (0-5)
[2021-08-15 13:10] LABS: INR 1.6 (0.90-1.11); Prothrombin Time 17.2 sec (9.9-11.9)
[2021-08-15] MEDS ORDERED: FUROSEMIDE 10 MG/ML 2 ML VIAL IV ONE (15:00)
[2021-08-15] MEDS: WARFARIN 2 MG TAB PO SCH (17:33)
[2021-08-15] MEDS: HYDROcodone/APAP 5-325MG 1 EACH TAB PO PRN (20:52)
[2021-08-16] MEDS: HYDROcodone/APAP 5-325MG 1 EACH TAB PO PRN ×2 (06:15→12:35)
[2021-08-16 06:43] LABS: INR 1.9 (<1.2); Prothrombin Time 19.1 sec (9.0-12.0)
[2021-08-16 08:15] LABS: Anisocytosis Slight; HCT 25.3 % (34.0-46.0); HGB 7.9 gm/dL (11.4-16.0); Hypochromasia Marked; MCH 29.7 pg (25.0-35.0); MCV 95.7 fL (80.0-100.0); Mean Platelet Volume 9.5; Platelet Count 202 k/uL (150-450); Poikilocytosis Slight; RBC 2.65 m/uL (3.80-5.40); RDW 16.7 % (11.5-15.5)
[2021-08-16] MEDS: AMIODARONE 100 MG TAB PO SCH (08:15)
[2021-08-16] MEDS: ALPRAZolam 0.25 MG TAB PO SCH (08:15)
[2021-08-16] MEDS: DOCUSATE 100 MG CAP PO SCH ×2 (08:15→20:36)
[2021-08-16] MEDS: PANTOPRAZOLE 40 MG/10 ML VIAL IV SCH ×2 (08:16→20:35)
[2021-08-16] MEDS: FAMOTIDINE 20 MG TAB PO SCH (08:16)
[2021-08-16] MEDS: FUROSEMIDE 40 MG TAB PO SCH ×2 (08:16→17:06)
[2021-08-16] MEDS: carvediloL 6.25 MG TAB PO SCH ×2 (08:16→17:06)
--- NOTE | 2021-08-16 11:58 | P.PN ---
Subjective Progress Note Date: 08/16/21 This is a 76-year-old female with a past medical history of type A aortic dissection in 1998 and aortic aneursym s/p bentall procedure w replacement of arch and elephant trunk in 2011, and repair in 2012, aortic stenosis status post mechanical aortic valve replacement in 1998, hypertension, dyslipidemia, left bundle-branch block, persistent atrial fibrillation, chronic congestive heart failure, sick sinus syndrome status post dual chamber pacemaker implantation in 2014, chronic kidney disease. She follows in the office with Dr. Helton. We have been consulted for congestive heart failure and mechanical aortic valve. Patient presents to the emergency department due to abnormal labs. She presented from [facility], hemoglobin of 5 and elevated INR of 9. She states she did have a recent mechanical fall at [facility], was walking into the bathroom and slipped, felt as if her legs were weak. An employee helped her and she sustained multiple bruises to the right arm. Overall she has been having symptoms of lightheadedness and generalized weakness. She also has right hip/right knee pain, which she states is chronic. She denies any syncope or loss of consciousness. She denies chest pain, worsening shortness of breath, dizziness, palpitations. She denies any bleeding. No dark/tarry stools. On admission to the hospital patient found to have a hemoglobin of 5.4, INR greater than 10. Patient received 1 unit of PRBC and Vitamin K. repeat INR was 2.4 and repeat hemoglobin this morning 5.7 Echocardiogram 07/14/2021 revealed EF 5055%, moderate to severe mitral regurgitation, moderate tricuspid regurgitation, moderate to severe pulmonary hypertension with an RVSP of 53 mmHg. 08/14/2021 Patient seen and at bedside, no acute distress. She denies any chest pain or shortness of breath. Continues to have right hip and right knee pain. No evidence of bleeding at this time. She has received a total of 3 units of PRBCs with a hemoglobin of 7.4 today. INR is 1.5. Renal function is improved with a serum creatinine 1.48 Her Coumadin continues to be on hold. She's currently maintained on amiodarone 100 mg daily, carvedilol 6.25 mg twice a day, PO Lasix 40 mg twice a day 08/16: Patient denies having any chest pain and no shortness of breath. She states her breathing is much improved. She is now transfused a total of 4 units of packed RBCs. Hemoglobin today is 6.9, INR 1.9. Pharmacy is dosing Coumadin. Blood pressure 163/75 and heart rate in the 60s. Pulse ox 90% on 2 L. PHYSICAL EXAMINATION CONSTITUTIONAL: No apparent distress. HEENT: Neck Supple. No JVD CHEST EXAMINATION: Lungs are diminished in bases bilaterally to auscultation. No chest wall tenderness is noted on palpation or with deep breathing. HEART EXAMINATION: Irregular rate and rhythm. S1, S2 heard. Systolic ejection murmur. Valve click noted ABDOMEN: Soft, nontender. Positive bowel sounds. EXTREMITIES: Diminished pedal peripheral pulses, trace lower extremity edema. Right arm significant swelling and bruising noted NEUROLOGIC EXAMINATION: Patient is awake, alert and oriented x3. ASSESSMENT Supratherapeutic INR, unclear what cause, treated with Vitamin K on admission. Amiodarone not new medication. Anemia s/p 4 unit PRBC, no evidence of bleeding at this time Recent mechanical fall, no syncope Acute on chronic kidney disease Chronic diastolic heart failure with preserved ejection fraction Status post mechanical aortic valve replacement in 1998 Sick sinus syndrome status post permanent pacemaker History of permanent atrial fibrillation was on coumadin outpatient History of AAA s/p repair Hypertenion Dyslipidemia PLAN Coumadin has been resumed due to mechanical valve and pharmacy is dosing Monitor PT/INR and hemoglobin Discontinue Aspirin Continue carvedilol and amiodarone. Further recommendations based on clinical course Nurse Practitioner note has been reviewed, I agree with a documented findings and plan of care. Patient was seen and examined. Objective - Vital Signs Vital signs: Vital Signs Temp 97.9 F 08/16/21 04:36 Pulse 61 08/16/21 04:36 Resp 20 08/16/21 04:36 BP 163/75 08/16/21 04:36 Pulse Ox 98 08/16/21 04:36 Intake & Output 08/15/21 08/16/21 08/16/21 18:59 06:59 18:59 Intake Total 1220 Output Total 0 Balance 1220 0 Weight 66 kg Intake: Intake, IV Titration 50 Amount cefTRIAXone 1 gm In 50 Sodium Chloride 0.9% 50 ml @ 100 mls/hr IVPB Q24HR [facility] Rx#:[id number] Oral 580 Blood Product 590 Rc Pheresis As-3 Unit 280 [id number] Output: Stool 0 Other: Voiding Method External Catheter External Catheter # Voids 4 - Labs CBC & Chem 7: 08/16/21 06:10 08/15/21 05:26 Labs: Abnormal Lab Results - Last 24 Hours (Table) 08/12/21 08/15/21 08/15/21 Range/Units 07:25 05:26 05:26 RBC 2.18 L (4.10-5.20) X 10*6/uL Hgb 6.0 L* (12.0-15.0) g/dL Hct 20.8 L (37.2-46.3) % MCHC 28.8 L (32.0-37.0) g/dL RDW 16.6 H (11.5-14.5) % Lymphocytes # 0.66 L (0.90-5.00) X 10*3/uL PT (9.9-11.9) sec INR (0.90-1.11) Chloride 92 L (96-109) mmol/L Carbon Dioxide 34.8 H (20.0-27.5) mmol/L Anion Gap 7.80 L (10.00-18.00) mmol/L BUN 37.7 H (9.0-27.0) mg/dL Creatinine 1.6 H (0.6-1.5) mg/dL Est GFR (CKD-EPI)AfAm 37.0 L (60.0-200.0) Est GFR (CKD-EPI)NonAf 31.9 L (60.0-200.0) BUN/Creatinine Ratio 24.01 H (12.00-20.00) Ratio ALT 7 L (8-44) U/L Total Protein 5.3 L (6.2-8.2) g/dL Albumin 2.6 L (3.8-4.9) g/dL Albumin/Globulin Ratio 0.94 L (1.60-3.17) g/dL Urine Appearance (Clear) Urine pH (5.0-8.0) Urine Protein (Negative) Urine Blood (Negative) Ur Leukocyte Esterase (Negative) Urine RBC (0-5) /hpf Urine WBC (0-5) /hpf Amorphous Sediment (None) /hpf Urine Bacteria (None) /hpf Urine Mucus (None) /hpf Crossmatch See Detail 08/15/21 08/15/21 08/16/21 Range/Units 05:26 11:41 06:10 RBC (4.10-5.20) X 10*6/uL Hgb (12.0-15.0) g/dL Hct (37.2-46.3) % MCHC (32.0-37.0) g/dL RDW (11.5-14.5) % Lymphocytes # (0.90-5.00) X 10*3/uL PT 17.2 H 19.1 H (9.9-11.9) sec INR 1.60 H 1.9 H (0.90-1.11) Chloride (96-109) mmol/L Carbon Dioxide (20.0-27.5) mmol/L Anion Gap (10.00-18.00) mmol/L BUN (9.0-27.0) mg/dL Creatinine (0.6-1.5) mg/dL Est GFR (CKD-EPI)AfAm (60.0-200.0) Est GFR (CKD-EPI)NonAf (60.0-200.0) BUN/Creatinine Ratio (12.00-20.00) Ratio ALT (8-44) U/L Total Protein (6.2-8.2) g/dL Albumin (3.8-4.9) g/dL Albumin/Globulin Ratio (1.60-3.17) g/dL Urine Appearance Turbid H (Clear) Urine pH 8.5 H (5.0-8.0) Urine Protein 2+ H (Negative) Urine Blood Small H (Negative) Ur Leukocyte Esterase Large H (Negative) Urine RBC 42 H (0-5) /hpf Urine WBC 179 H (0-5) /hpf Amorphous Sediment Rare H (None) /hpf Urine Bacteria Many H (None) /hpf Urine Mucus Rare H (None) /hpf Crossmatch Microbiology - Last 24 Hours (Table) 08/15/21 11:41 Urine Culture - Preliminary Urine,Clean Catch
--- NOTE | 2021-08-16 12:36 | P.PN ---
Subjective Progress Note Date: 08/16/21 Alix Odonnell, he is a 76-year-old female who was at [facility] for rehab after a recent admission, patient had abnormal lab test that revealed a hemoglobin of 5 and elevated INR of 9, patient also had recent fall and multiple bruises, she was sent to [facility] for evaluation and treatment. She was evaluated in the emergency room vital examination on presentation re vealed a temperature of 98 pulse 60 respiration 16 blood pressure 134/100 pulse ox 100% on room air Laboratory data revealed a white blood count of 7.5 hemoglobin 5.4 platelet count 182 sodium 133 potassium 3.9 chloride 92 CO2 39 BUN 35 creatinine 1.20 Testing in the emergency room revealed elbow x-ray revealed no evidence of acute fracture or dislocation in the right elbow, EKG revealed electronic ventricular pacemaker with prolonged QT interval Patient was given vitamin K and red blood cell transfusion in the emergency room, she was admitted to medical floor for further evaluation and treatment, cardiology consultation was requested On 08/13/2021 patient is alert and oriented 3 sitting comfortably in bed. Hemoglobin 5.7. 1 more unit of PRBCs have been ordered. 20 mg IV Lasix also to be ordered after unit of blood. Patient complaining of increased pain to right hip will order x-ray to rule out fracture. Patient also requesting something for pain control. Will order [place]. This time patient denies chest pain or shortness breath. Patient denies nausea vomiting or diarrhea. Patient denies any urinary burning or frequency. INR today 2.4. Cardiology services have been consulted On 08/14/2021 patient was seen and examined on the medical floor she is alert and oriented 3 in no apparent distress there is no fever or chills no headache or dizziness no chest pain no shortness of breath no cough no nausea or vomiting no abdominal pain no diarrhea no blood in the stools no burning with urination no frequency or urgency and no hematuria On 08/15/2021 patient is alert and oriented 3. Patient currently resting comfortably in bed. Awaiting lab results. Patient was started back on Coumadin 2 mg history per cardiology. No signs of hematuria for GI bleed. Patient d enies chest pain or shortness of breath. Patient denies nausea vomiting or diarrhea. Patient denies any urinary burning or frequency On 08/16/2021 patient was seen and examined on the medical floor she is alert and oriented 3 in no apparent distress there is no fever or chills no headache or dizziness no chest pain no shortness of breath no cough no nausea or vomiting no abdominal pain no diarrhea and no urinary symptoms. Vital exam reveals a temperature of 97.5 pulse 60 respiration 16 blood pressure 103/51 pulse ox 98% on 2 L nasal cannula, white blood count 6.0 hemoglobin 7.9 platelet count 202 INR 1.9 Objective - Vital Signs Vital signs: Vital Signs Temp 97.9 F 08/16/21 04:36 Pulse 61 08/16/21 04:36 Resp 20 08/16/21 04:36 BP 163/75 08/16/21 04:36 Pulse Ox 98 08/16/21 04:36 Intake & Output 08/15/21 08/16/21 08/16/21 18:59 06:59 18:59 Intake Total 1220 120 Output Total 0 Balance 1220 120 Weight 66 kg 72 kg Intake: Intake, IV Titration 50 Amount cefTRIAXone 1 gm In 50 Sodium Chloride 0.9% 50 ml @ 100 mls/hr IVPB Q24HR [facility] Rx#:[id number] Oral 580 120 Blood Product 590 Rc Pheresis As-3 Unit 280 [id number] Output: Stool 0 Other: Voiding Method External Catheter External Catheter External Catheter # Voids 4 - Exam In general patient is alert and oriented x 3 in no distress HEENT head normocephalic and atraumatic Neck is supple no JVD no goiter no lymphadenopathy no carotid bruit Chest examination is clear to auscultation no crackles no wheezing Cardiac exam reveals regular heart sounds S1 and S2 no gallops no murmurs Abdomen is soft nontender no organomegaly with normal bowel sounds Extremity exam reveals no edema no cyanosis or clubbing Neurological examination reveals no gross focal deficits - Labs CBC & Chem 7: 08/16/21 06:10 08/15/21 05:26 Labs: Abnormal Lab Results - Last 24 Hours (Table) 08/12/21 08/15/21 08/15/21 Range/Units 07:25 05:26 11:41 RBC (3.80-5.40) m/uL Hgb (11.4-16.0) gm/dL Hct (34.0-46.0) % RDW (11.5-15.5) % PT 17.2 H (9.9-11.9) sec INR 1.60 H (0.90-1.11) Urine Appearance Turbid H (Clear) Urine pH 8.5 H (5.0-8.0) Urine Protein 2+ H (Negative) Urine Blood Small H (Negative) Ur Leukocyte Esterase Large H (Negative) Urine RBC 42 H (0-5) /hpf Urine WBC 179 H (0-5) /hpf Amorphous Sediment Rare H (None) /hpf Urine Bacteria Many H (None) /hpf Urine Mucus Rare H (None) /hpf Crossmatch See Detail 08/16/21 08/16/21 Range/Units 06:10 06:10 RBC 2.65 L (3.80-5.40) m/uL Hgb 7.9 L (11.4-16.0) gm/dL Hct 25.3 L (34.0-46.0) % RDW 16.7 H (11.5-15.5) % PT 19.1 H (9.9-11.9) sec INR 1.9 H (0.90-1.11) Urine Appearance (Clear) Urine pH (5.0-8.0) Urine Protein (Negative) Urine Blood (Negative) Ur Leukocyte Esterase (Negative) Urine RBC (0-5) /hpf Urine WBC (0-5) /hpf Amorphous Sediment (None) /hpf Urine Bacteria (None) /hpf Urine Mucus (None) /hpf Crossmatch Microbiology - Last 24 Hours (Table) 08/15/21 11:41 Urine Culture - Preliminary Urine,Clean Catch Assessment and Plan Plan: Anemia, no evidence of bleeding at this time, patient has multiple bruises from recent fall Coagulopathy, INR >9 given vitamin K in ER, recheck INR in am and recheck INR 2.4. Recent fall with multiple bruises with right upper extremity injury no evidence of fracture Underlying history of artificial aortic valve History of CKD History of stroke Previous history of GI bleed History of chronic congestive heart failure Right hip pain will order x-ray At this time admit patient to telemetry contiue monitoring CBC and INR She has been restarted back on Coumadin per cardiology Cardiology consult
[2021-08-16] MEDS: WARFARIN 2 MG TAB PO SCH (17:06)
[2021-08-17] MEDS: HYDROcodone/APAP 5-325MG 1 EACH TAB PO PRN ×2 (05:34→17:07)
[2021-08-17] MEDS: ALPRAZolam 0.25 MG TAB PO SCH (08:27)
[2021-08-17] MEDS: FUROSEMIDE 40 MG TAB PO SCH ×2 (08:27→17:08)
[2021-08-17] MEDS: PANTOPRAZOLE 40 MG/10 ML VIAL IV SCH ×2 (08:27→20:00)
[2021-08-17] MEDS: FAMOTIDINE 20 MG TAB PO SCH (08:27)
[2021-08-17] MEDS: AMIODARONE 100 MG TAB PO SCH (08:27)
[2021-08-17] MEDS: DOCUSATE 100 MG CAP PO SCH ×2 (08:27→20:00)
[2021-08-17] MEDS: carvediloL 6.25 MG TAB PO SCH ×2 (08:27→17:08)
--- NOTE | 2021-08-17 09:46 | P.PN ---
Subjective Progress Note Date: 08/17/21 This is a 76-year-old female with a past medical history of type A aortic dissection in 1998 and aortic aneursym s/p bentall procedure w replacement of arch and elephant trunk in 2011, and repair in 2012, aortic stenosis status post mechanical aortic valve replacement in 1998, hypertension, dyslipidemia, left bundle-branch block, persistent atrial fibrillation, chronic congestive heart failure, sick sinus syndrome status post dual chamber pacemaker implantation in 2014, chronic kidney disease. She follows in the office with Dr. Helton. We have been consulted for congestive heart failure and mechanical aortic valve. Patient presents to the emergency department due to abnormal labs. She presented from [facility], hemoglobin of 5 and elevated INR of 9. She states she did have a recent mechanical fall at [facility], was walking into the bathroom and slipped, felt as if her legs were weak. An employee helped her and she sustained multiple bruises to the right arm. Overall she has been having symptoms of lightheadedness and generalized weakness. She also has right hip/right knee pain, which she states is chronic. She denies any syncope or loss of consciousness. She denies chest pain, worsening shortness of breath, dizziness, palpitations. She denies any bleeding. No dark/tarry stools. On admission to the hospital patient found to have a hemoglobin of 5.4, INR greater than 10. Patient received 1 unit of PRBC and Vitamin K. repeat INR was 2.4 and repeat hemoglobin this morning 5.7 Echocardiogram 07/14/2021 revealed EF 5055%, moderate to severe mitral regurgitation, moderate tricuspid regurgitation, moderate to severe pulmonary hypertension with an RVSP of 53 mmHg. 08/14/2021 Patient seen and at bedside, no acute distress. She denies any chest pain or shortness of breath. Continues to have right hip and right knee pain. No evidence of bleeding at this time. She has received a total of 3 units of PRBCs with a hemoglobin of 7.4 today. INR is 1.5. Renal function is improved with a serum creatinine 1.48 Her Coumadin continues to be on hold. She's currently maintained on amiodarone 100 mg daily, carvedilol 6.25 mg twice a day, PO Lasix 40 mg twice a day 08/16: Patient denies having any chest pain and no shortness of breath. She states her breathing is much improved. She is now transfused a total of 4 units of packed RBCs. Hemoglobin today is 6.9, INR 1.9. Pharmacy is dosing Coumadin. Blood pressure 163/75 and heart rate in the 60s. Pulse ox 90% on 2 L. 08/17: He continues to deny any signs of bleeding. No blood in her stools, no ta rdiness. Edema to the right upper extremity is improving slowly. Patient received Coumadin 2 mg last night. INR is pending at this time, pharmacy is dosing Coumadin. PHYSICAL EXAMINATION CONSTITUTIONAL: No apparent distress. HEENT: Neck Supple. No JVD CHEST EXAMINATION: Lungs are diminished in bases bilaterally to auscultation. No chest wall tenderness is noted on palpation or with deep breathing. HEART EXAMINATION: Irregular rate and rhythm. S1, S2 heard. Systolic ejection murmur. Valve click noted ABDOMEN: Soft, nontender. Positive bowel sounds. EXTREMITIES: Diminished pedal peripheral pulses, trace lower extremity edema. Right arm significant swelling and bruising noted, improved slightly from yesterday NEUROLOGIC EXAMINATION: Patient is awake, alert and oriented x3. ASSESSMENT Supratherapeutic INR, unclear what cause, treated with Vitamin K on admission. Amiodarone not new medication. Anemia s/p 4 unit PRBC, no evidence of bleeding at this time Recent mechanical fall, no syncope Acute on chronic kidney disease Chronic diastolic heart failure with preserved ejection fraction Status post mechanical aortic valve replacement in 1998 Sick sinus syndrome status post permanent pacemaker History of permanent atrial fibrillation was on coumadin outpatient History of AAA s/p repair Hypertenion Dyslipidemia PLAN Coumadin has been resumed due to mechanical valve, pharmacy is dosing Monitor PT/INR and hemoglobin Discontinue Aspirin Continue carvedilol and amiodarone. Further recommendations based on clinical course Nurse Practitioner note has been reviewed, I agree with a documented findings and plan of care. Patient was seen and examined. Objective - Vital Signs Vital signs: Vital Signs Temp 97.8 F 08/17/21 04:48 Pulse 60 08/17/21 04:48 Resp 16 08/17/21 04:48 BP 115/52 08/17/21 04:48 Pulse Ox 99 08/17/21 04:48 Intake & Output 08/16/21 08/17/21 08/17/21 18:59 06:59 18:59 Intake Total 100 830 Output Total 500 800 Balance -400 30 Weight 69.5 kg Intake: Intake, IV Titration 100 Amount cefTRIAXone 1 gm In 100 Sodium Chloride 0.9% 50 ml @ 100 mls/hr IVPB Q24HR [facility] Rx#:[id number] Oral 830 Output: Urine 500 800 Stool 0 Other: Voiding Method External Catheter External Catheter # Voids 2 - Labs CBC & Chem 7: 08/16/21 06:10 08/15/21 05:26 Labs: Abnormal Lab Results - Last 24 Hours (Table) 08/16/21 Range/Units 06:10 RBC 2.65 L (3.80-5.40) m/uL Hgb 7.9 L (11.4-16.0) gm/dL Hct 25.3 L (34.0-46.0) % RDW 16.7 H (11.5-15.5) % Microbiology - Last 24 Hours (Table) 08/15/21 11:41 Urine Culture - Preliminary Urine,Clean Catch Gram Neg Bacilli
[2021-08-17] MEDS: ACETAMINOPHEN TAB 325 MG TAB PO PRN (10:10)
--- NOTE | 2021-08-17 10:14 | P.PN ---
Subjective Progress Note Date: 08/17/21 Alix Odonnell, he is a 76-year-old female who was at [facility] for rehab after a recent admission, patient had abnormal lab test that revealed a hemoglobin of 5 and elevated INR of 9, patient also had recent fall and multiple bruises, she was sent to [facility] for evaluation and treatment. She was evaluated in the emergency room vital examination on presentation re vealed a temperature of 98 pulse 60 respiration 16 blood pressure 134/100 pulse ox 100% on room air Laboratory data revealed a white blood count of 7.5 hemoglobin 5.4 platelet count 182 sodium 133 potassium 3.9 chloride 92 CO2 39 BUN 35 creatinine 1.20 Testing in the emergency room revealed elbow x-ray revealed no evidence of acute fracture or dislocation in the right elbow, EKG revealed electronic ventricular pacemaker with prolonged QT interval Patient was given vitamin K and red blood cell transfusion in the emergency room, she was admitted to medical floor for further evaluation and treatment, cardiology consultation was requested On 08/13/2021 patient is alert and oriented 3 sitting comfortably in bed. Hemoglobin 5.7. 1 more unit of PRBCs have been ordered. 20 mg IV Lasix also to be ordered after unit of blood. Patient complaining of increased pain to right hip will order x-ray to rule out fracture. Patient also requesting something for pain control. Will order [place]. This time patient denies chest pain or shortness breath. Patient denies nausea vomiting or diarrhea. Patient denies any urinary burning or frequency. INR today 2.4. Cardiology services have been consulted On 08/14/2021 patient was seen and examined on the medical floor she is alert and oriented 3 in no apparent distress there is no fever or chills no headache or dizziness no chest pain no shortness of breath no cough no nausea or vomiting no abdominal pain no diarrhea no blood in the stools no burning with urination no frequency or urgency and no hematuria On 08/15/2021 patient is alert and oriented 3. Patient currently resting comfortably in bed. Awaiting lab results. Patient was started back on Coumadin 2 mg history per cardiology. No signs of hematuria for GI bleed. Patient d enies chest pain or shortness of breath. Patient denies nausea vomiting or diarrhea. Patient denies any urinary burning or frequency On 08/16/2021 patient was seen and examined on the medical floor she is alert and oriented 3 in no apparent distress there is no fever or chills no headache or dizziness no chest pain no shortness of breath no cough no nausea or vomiting no abdominal pain no diarrhea and no urinary symptoms. Vital exam reveals a temperature of 97.5 pulse 60 respiration 16 blood pressure 103/51 pulse ox 98% on 2 L nasal cannula, white blood count 6.0 hemoglobin 7.9 platelet count 202 INR 1.9 On 08/17/2021 patient is alert and oriented 3. Awaiting lab work for today. Patient remains on ibuprofen Rocephin for urinary tract infection. Urine culture pending. No signs of active bleeding. Patient is currently resting comfortably in bed. Patient denies chest pain or shortness breath. Patient denies nausea vomiting or diarrhea. Patient denies any urinary burning or frequency Objective - Vital Signs Vital signs: Vital Signs Temp 97.8 F 08/17/21 04:48 Pulse 60 08/17/21 04:48 Resp 16 08/17/21 04:48 BP 115/52 08/17/21 04:48 Pulse Ox 99 08/17/21 04:48 Intake & Output 08/16/21 08/17/21 08/17/21 18:59 06:59 18:59 Intake Total 100 830 Output Total 500 800 Balance -400 30 Weight 69.5 kg Intake: Intake, IV Titration 100 Amount cefTRIAXone 1 gm In 100 Sodium Chloride 0.9% 50 ml @ 100 mls/hr IVPB Q24HR [facility] Rx#:[id number] Oral 830 Output: Urine 500 800 Stool 0 Other: Voiding Method External Catheter External Catheter # Voids 2 - Exam In general patient is alert and oriented x 3 in no distress HEENT head normocephalic and atraumatic Neck is supple no JVD no goiter no lymphadenopathy no carotid bruit Chest examination is clear to auscultation no crackles no wheezing Cardiac exam reveals regular heart sounds S1 and S2 no gallops no murmurs Abdomen is soft nontender no organomegaly with normal bowel sounds Extremity exam reveals no edema no cyanosis or clubbing Neurological examination reveals no gross focal deficits - Labs CBC & Chem 7: 08/16/21 06:10 08/15/21 05:26 Labs: Microbiology - Last 24 Hours (Table) 08/15/21 11:41 Urine Culture - Preliminary Urine,Clean Catch Gram Neg Bacilli Assessment and Plan Plan: Anemia, no evidence of bleeding at this time, patient has multiple bruises from recent fall Coagulopathy, INR >9 given vitamin K in ER, recheck INR in am and recheck INR 2.4. Recent fall with multiple bruises with right upper extremity injury no evidence of fracture Underlying history of artificial aortic valve History of CKD History of stroke Previous history of GI bleed History of chronic congestive heart failure Right hip pain. Hip x-ray negative At this time admit patient to telemetry contiue monitoring CBC and INR She has been restarted back on Coumadin per pharmacy Cardiology consult
[2021-08-17 10:57] LABS: Basophils # (A) 0.04 X 10*3/uL (0.00-0.10); Basophils % (A) 0.6 %; Eosinophils # (A) 0.32 X 10*3/uL (0.04-0.35); Eosinophils % (A) 5.2 %; HCT 26.6 % (37.2-46.3); HGB 7.6 g/dL (12.0-15.0); Lymphocytes % (A) 9.7 %; MCH 27.8 pg (27.0-32.0); MCHC 28.6 g/dL (32.0-37.0); MCV 97.4 fL (80.0-97.0); Mean Platelet Volume 12.1 fL (9.5-12.2); Monocytes # (A) 0.66 X 10*3/uL (0.20-1.00); Monocytes % (A) 10.6 %; NRBC Per 100 WBC 0 /100 WBCS (0.0-0.0); Neutrophils # (A) 4.53 X 10*3/uL (1.80-7.70); Neutrophils % (A) 72.9 %; Platelet Count 254 X 10*3/uL (140-440); RBC 2.73 X 10*6/uL (4.10-5.20); RDW 17.2 % (11.5-14.5); WBC 6.21 X 10*3/uL (4.50-10.00)
[2021-08-17 11:04] LABS: African American GFR (CKD) 46.1 (60.0-200.0); Albumin 2.8 g/dL (3.8-4.9); Albumin/Globulin Ratio 0.86 (1.60-3.17); Anion Gap 8.4 mmol/L (10.00-18.00); BUN/Creat Ratio 25.34 Ratio (12.00-20.00); Blood Urea Nitrogen 33.2 mg/dL (9.0-27.0); Calcium 10.7 mg/dL (8.7-10.3); Carbon Dioxide 33.8 mmol/L (20.0-27.5); Globulin 3.2 g/dL (1.6-3.3); Non-African American GFR(CKD) 39.7 (60.0-200.0); Potassium 4.4 mmol/L (3.5-5.5); Total Bilirubin 0.7 mg/dL (0.30-1.20)
[2021-08-17 11:54] LABS: INR 1.76 (0.90-1.11); Prothrombin Time 19.4 sec (9.9-11.9)
[2021-08-17] MEDS ORDERED: WARFARIN 3 MG TAB PO ONE (18:00)
[2021-08-18 06:03] LABS: INR 1.9 (<1.2); Prothrombin Time 19.1 sec (9.0-12.0)
[2021-08-18] MEDS: HYDROcodone/APAP 5-325MG 1 EACH TAB PO PRN (06:03)
[2021-08-18] MEDS: ALPRAZolam 0.25 MG TAB PO SCH (07:43)
[2021-08-18] MEDS: AMIODARONE 100 MG TAB PO SCH (07:43)
[2021-08-18] MEDS: PANTOPRAZOLE 40 MG/10 ML VIAL IV SCH ×2 (07:43→21:02)
[2021-08-18] MEDS: FUROSEMIDE 40 MG TAB PO SCH ×2 (07:43→15:40)
[2021-08-18] MEDS: DOCUSATE 100 MG CAP PO SCH ×2 (07:43→21:02)
[2021-08-18] MEDS: carvediloL 6.25 MG TAB PO SCH ×2 (07:43→17:50)
[2021-08-18] MEDS: FAMOTIDINE 20 MG TAB PO SCH (07:43)
[2021-08-18 08:54] LABS: Anisocytosis Slight; HCT 28.4 % (34.0-46.0); HGB 8.2 gm/dL (11.4-16.0); Hypochromasia Marked; MCH 28.5 pg (25.0-35.0); MCV 98.5 fL (80.0-100.0); Macrocytosis Slight; Mean Platelet Volume 9.1; Platelet Count 253 k/uL (150-450); Poikilocytosis Slight; RBC 2.89 m/uL (3.80-5.40); RDW 17.3 % (11.5-15.5); WBC 5.4 k/uL (3.8-10.6)
--- NOTE | 2021-08-18 11:22 | P.PN ---
Subjective This is a 76-year-old female with a past medical history of type A aortic dissection in 1998 and aortic aneursym s/p bentall procedure w replacement of arch and elephant trunk in 2011, and repair in 2012, aortic stenosis status post mechanical aortic valve replacement in 1998, hypertension, dyslipidemia, left bundle-branch block, persistent atrial fibrillation, chronic congestive heart failure, sick sinus syndrome status post dual chamber pacemaker implantation in 2014, chronic kidney disease. She follows in the office with Dr. Helton. Vipul spangler been consulted for congestive heart failure and mechanical aortic valve. Patient presents to the emergency department due to abnormal labs. She presented from [facility], hemoglobin of 5 and elevated INR of 9. She states she did have a recent mechanical fall at [facility], was walking into the bathroom and slipped, felt as if her legs were weak. An employee helped her and she sustained multiple bruises to the right arm. Overall she has been having symptoms of lightheadedness and generalized weakness. She also has right hip/right knee pain, which she states is chronic. On admission to the hospital patient found to have a hemoglobin of 5.4, INR greater than 10. Patient received 1 unit of PRBC and Vitamin K. repeat INR was 2.4 and repeat hemoglobin this morning 5.7 Echocardiogram 07/14/2021 revealed EF 5055%, moderate to severe mitral regurgitation, moderate tricuspid regurgitation, moderate to severe pulmonary hypertension with an RVSP of 53 mmHg. 08/18/2021 Patient seen and at bedside, no acute distress. She denies any chest pain or shortness of breath. No evidence of bleeding at this time. Edema in right upper extremity is improving. She has received a total of 4 units of PRBCs this admission with a hemoglobin of 8.2 today. INR is 1.9. Renal function is improved with a serum creatinine 1.3. She's currently maintained on Coumadin 3mg given last night, amiodarone 100 mg daily, carvedilol 6.25 mg twice a day, PO Lasix 40 mg twice a day PHYSICAL EXAMINATION VITALS: Reviewed CONSTITUTIONAL: No apparent distress. HEENT: Neck Supple. No JVD CHEST EXAMINATION: Lungs are diminished in bases bilaterally to auscultation. No chest wall tenderness is noted on palpation or with deep breathing. HEART EXAMINATION: Irregular rate and rhythm. S1, S2 heard. Systolic ejection murmur. Valve click noted ABDOMEN: Soft, nontender. Positive bowel sounds. EXTREMITIES: Diminished pedal peripheral pulses, trace lower extremity edema. Right arm swelling and bruising noted- improved NEUROLOGIC EXAMINATION: Patient is awake, alert and oriented x3. ASSESSMENT Supratherapeutic INR, unclear what cause, treated with Vitamin K on admission. Amiodarone not new medication. Anemia s/p 1 unit PRBC, no evidence of bleeding at this time Recent mechanical fall, no syncope Acute on chronic kidney disease Chronic heart failure with preserved ejection fraction Status post mechanical aortic valve replacement in 1998 Sick sinus syndrome status post permanent pacemaker History of permanent atrial fibrillation was on coumadin outpatient History of AAA s/p repair Hypertenion Dyslipidemia PLAN Continue coumadin, pharmacy is dosing Monitor PT/INR and hemoglobin Continue carvedilol and amiodarone. From a cardiology perspective, patient's INR has improved and almost therapeutic, ok to discharge when stable and follow up outpatient with Dr. Helton Nurse Practitioner note has been reviewed, I agree with a documented findings and plan of care. Patient was seen and examined. Objective - Vital Signs Vital signs: Vital Signs Temp 98.4 F 08/18/21 04:47 Pulse 61 08/18/21 04:47 Resp 16 08/18/21 04:47 BP 142/73 08/18/21 04:47 Pulse Ox 100 08/18/21 04:47 Intake & Output 08/17/21 08/18/21 08/18/21 18:59 06:59 18:59 Intake Total 1160 240 120 Output Total 600 600 Balance 560 -360 120 Weight 68.5 kg Intake: Oral 1160 240 120 Output: Urine 600 600 Stool 0 0 Other: Voiding Method External Catheter Diaper Diaper Incontinent Incontinent # Voids 3 - Labs CBC & Chem 7: 08/18/21 05:33 08/17/21 07:15 Labs: Abnormal Lab Results - Last 24 Hours (Table) 08/17/21 08/18/21 08/18/21 Range/Units 07:15 05:33 05:33 RBC 2.89 L (3.80-5.40) m/uL Hgb 8.2 L (11.4-16.0) gm/dL Hct 28.4 L (34.0-46.0) % MCHC 29.0 L (31.0-37.0) g/dL RDW 17.3 H (11.5-15.5) % PT 19.4 H 19.1 H (9.9-11.9) sec INR 1.76 H 1.9 H (0.90-1.11) Microbiology - Last 24 Hours (Table) 08/15/21 11:41 Urine Culture - Final Urine,Clean Catch Klebsiella ozaenae Proteus mirabilis
[2021-08-18 13:13] VITALS: BMI 22.9
[2021-08-18] MEDS ORDERED: WARFARIN 3 MG TAB PO ONE (18:00)
--- NOTE | 2021-08-18 19:49 | P.PN ---
Subjective Progress Note Date: 08/18/21 Alix Odonnell, he is a 76-year-old female who was at [facility] for rehab after a recent admission, patient had abnormal lab test that revealed a hemoglobin of 5 and elevated INR of 9, patient also had recent fall and multiple bruises, she was sent to [facility] for evaluation and treatment. She was evaluated in the emergency room vital examination on presentation re vealed a temperature of 98 pulse 60 respiration 16 blood pressure 134/100 pulse ox 100% on room air Laboratory data revealed a white blood count of 7.5 hemoglobin 5.4 platelet count 182 sodium 133 potassium 3.9 chloride 92 CO2 39 BUN 35 creatinine 1.20 Testing in the emergency room revealed elbow x-ray revealed no evidence of acute fracture or dislocation in the right elbow, EKG revealed electronic ventricular pacemaker with prolonged QT interval Patient was given vitamin K and red blood cell transfusion in the emergency room, she was admitted to medical floor for further evaluation and treatment, cardiology consultation was requested On 08/13/2021 patient is alert and oriented 3 sitting comfortably in bed. Hemoglobin 5.7. 1 more unit of PRBCs have been ordered. 20 mg IV Lasix also to be ordered after unit of blood. Patient complaining of increased pain to right hip will order x-ray to rule out fracture. Patient also requesting something for pain control. Will order [place]. This time patient denies chest pain or shortness breath. Patient denies nausea vomiting or diarrhea. Patient denies any urinary burning or frequency. INR today 2.4. Cardiology services have been consulted On 08/14/2021 patient was seen and examined on the medical floor she is alert and oriented 3 in no apparent distress there is no fever or chills no headache or dizziness no chest pain no shortness of breath no cough no nausea or vomiting no abdominal pain no diarrhea no blood in the stools no burning with urination no frequency or urgency and no hematuria On 08/15/2021 patient is alert and oriented 3. Patient currently resting comfortably in bed. Awaiting lab results. Patient was started back on Coumadin 2 mg history per cardiology. No signs of hematuria for GI bleed. Patient d enies chest pain or shortness of breath. Patient denies nausea vomiting or diarrhea. Patient denies any urinary burning or frequency On 08/16/2021 patient was seen and examined on the medical floor she is alert and oriented 3 in no apparent distress there is no fever or chills no headache or dizziness no chest pain no shortness of breath no cough no nausea or vomiting no abdominal pain no diarrhea and no urinary symptoms. Vital exam reveals a temperature of 97.5 pulse 60 respiration 16 blood pressure 103/51 pulse ox 98% on 2 L nasal cannula, white blood count 6.0 hemoglobin 7.9 platelet count 202 INR 1.9 On 08/17/2021 patient is alert and oriented 3. Awaiting lab work for today. Patient remains on ibuprofen Rocephin for urinary tract infection. Urine culture pending. No signs of active bleeding. Patient is currently resting comfortably in bed. Patient denies chest pain or shortness breath. Patient denies nausea vomiting or diarrhea. Patient denies any urinary burning or frequency. On 08/18/2021 patient was seen and examined on the medical floor she is alert and oriented 3 in no apparent distress there is no fever or chills no headache or dizziness no chest pain no shortness of breath no cough no nausea or vomiting no abdominal pain no diarrhea and no urinary symptoms. Patient has artificial valve and is maintained on Coumadin INR should be 2.5-3.5 she continues to be subtherapeutic since admission Will continue to monitor as inpatient as we are having significant difficulty with controlling her INR Objective - Vital Signs Vital signs: Vital Signs Temp 98.4 F 08/18/21 04:47 Pulse 61 08/18/21 04:47 Resp 16 08/18/21 04:47 BP 142/73 08/18/21 04:47 Pulse Ox 100 08/18/21 04:47 Intake & Output 08/17/21 08/18/21 08/18/21 18:59 06:59 18:59 Intake Total 1160 240 120 Output Total 600 600 Balance 560 -360 120 Weight 68.5 kg Intake: Oral 1160 240 120 Output: Urine 600 600 Stool 0 0 Other: Voiding Method External Catheter Diaper Incontinent # Voids 3 - Exam In general patient is alert and oriented x 3 in no distress HEENT head normocephalic and atraumatic Neck is supple no JVD no goiter no lymphadenopathy no carotid bruit Chest examination is clear to auscultation no crackles no wheezing Cardiac exam reveals regular heart sounds S1 and S2 no gallops no murmurs Abdomen is soft nontender no organomegaly with normal bowel sounds Extremity exam reveals no edema no cyanosis or clubbing Neurological examination reveals no gross focal deficits - Labs CBC & Chem 7: 08/18/21 05:33 08/17/21 07:15 Labs: Abnormal Lab Results - Last 24 Hours (Table) 08/17/21 08/17/21 08/17/21 Range/Units 07:15 07:15 07:15 RBC 2.73 L (4.10-5.20) X 10*6/uL Hgb 7.6 L (12.0-15.0) g/dL Hct 26.6 L (37.2-46.3) % MCV 97.4 H (80.0-97.0) fL MCHC 28.6 L (32.0-37.0) g/dL RDW 17.2 H (11.5-14.5) % Immature Gran # 0.06 H (0.00-0.04) X 10*3/uL Lymphocytes # 0.60 L (0.90-5.00) X 10*3/uL PT 19.4 H (9.9-11.9) sec INR 1.76 H (0.90-1.11) Chloride 93 L (96-109) mmol/L Carbon Dioxide 33.8 H (20.0-27.5) mmol/L Anion Gap 8.40 L (10.00-18.00) mmol/L BUN 33.2 H (9.0-27.0) mg/dL Est GFR (CKD-EPI)AfAm 46.1 L (60.0-200.0) Est GFR (CKD-EPI)NonAf 39.7 L (60.0-200.0) BUN/Creatinine Ratio 25.34 H (12.00-20.00) Ratio Calcium 10.7 H (8.7-10.3) mg/dL Total Protein 6.0 L (6.2-8.2) g/dL Albumin 2.8 L (3.8-4.9) g/dL Albumin/Globulin Ratio 0.86 L (1.60-3.17) g/dL 08/18/21 08/18/21 Range/Units 05:33 05:33 RBC 2.89 L (4.10-5.20) X 10*6/uL Hgb 8.2 L (12.0-15.0) g/dL Hct 28.4 L (37.2-46.3) % MCV (80.0-97.0) fL MCHC 29.0 L (32.0-37.0) g/dL RDW 17.3 H (11.5-14.5) % Immature Gran # (0.00-0.04) X 10*3/uL Lymphocytes # (0.90-5.00) X 10*3/uL PT 19.1 H (9.9-11.9) sec INR 1.9 H (0.90-1.11) Chloride (96-109) mmol/L Carbon Dioxide (20.0-27.5) mmol/L Anion Gap (10.00-18.00) mmol/L BUN (9.0-27.0) mg/dL Est GFR (CKD-EPI)AfAm (60.0-200.0) Est GFR (CKD-EPI)NonAf (60.0-200.0) BUN/Creatinine Ratio (12.00-20.00) Ratio Calcium (8.7-10.3) mg/dL Total Protein (6.2-8.2) g/dL Albumin (3.8-4.9) g/dL Albumin/Globulin Ratio (1.60-3.17) g/dL Microbiology - Last 24 Hours (Table) 08/15/21 11:41 Urine Culture - Final Urine,Clean Catch Klebsiella ozaenae Proteus mirabilis Assessment and Plan Plan: Anemia, no evidence of bleeding at this time, patient has multiple bruises from recent fall Coagulopathy, INR >9 given vitamin K in ER, recheck INR in am and recheck INR 2.4. Recent fall with multiple bruises with right upper extremity injury no evidence of fracture Underlying history of artificial aortic valve History of CKD History of stroke Previous history of GI bleed History of chronic congestive heart failure Right hip pain. Hip x-ray negative At this time admit patient to telemetry contiue monitoring CBC and INR She has been restarted back on Coumadin per pharmacy Cardiology consult
[2021-08-19] MEDS: ACETAMINOPHEN TAB 325 MG TAB PO PRN ×2 (01:00→11:40)
[2021-08-19 07:48] LABS: Prothrombin Time 20.6 sec (9.0-12.0)
[2021-08-19] MEDS: carvediloL 6.25 MG TAB PO SCH ×2 (08:15→17:11)
[2021-08-19] MEDS: AMIODARONE 100 MG TAB PO SCH (09:09)
[2021-08-19] MEDS: FAMOTIDINE 20 MG TAB PO SCH (09:09)
[2021-08-19] MEDS: FUROSEMIDE 40 MG TAB PO SCH ×2 (09:09→17:11)
[2021-08-19] MEDS: ALPRAZolam 0.25 MG TAB PO SCH (09:09)
[2021-08-19] MEDS: DOCUSATE 100 MG CAP PO SCH ×2 (09:09→20:48)
[2021-08-19] MEDS: PANTOPRAZOLE 40 MG/10 ML VIAL IV SCH ×2 (09:15→20:50)
[2021-08-19 11:44] LABS: Basophils # (A) 0.05 X 10*3/uL (0.00-0.10); Eosinophils # (A) 0.19 X 10*3/uL (0.04-0.35); Eosinophils % (A) 3.7 %; HCT 23.8 % (37.2-46.3); HGB 6.8 g/dL (12.0-15.0); Lymphocytes # (A) 0.55 X 10*3/uL (0.90-5.00); Lymphocytes % (A) 10.6 %; MCHC 28.6 g/dL (32.0-37.0); MCV 97.9 fL (80.0-97.0); Monocytes # (A) 0.75 X 10*3/uL (0.20-1.00); Monocytes % (A) 14.5 %; NRBC Per 100 WBC 0 /100 WBCS (0.0-0.0); Neutrophils % (A) 69.2 %; Platelet Count 250 X 10*3/uL (140-440); RBC 2.43 X 10*6/uL (4.10-5.20); RDW 17.4 % (11.5-14.5); WBC 5.19 X 10*3/uL (4.50-10.00)
[2021-08-19 13:01] LABS: African American GFR (CKD) 54.5 (60.0-200.0); Albumin 2.6 g/dL (3.8-4.9); Albumin/Globulin Ratio 0.86 (1.60-3.17); Anion Gap 6.6 mmol/L (10.00-18.00); BUN/Creat Ratio 23.86 Ratio (12.00-20.00); Blood Urea Nitrogen 27.2 mg/dL (9.0-27.0); Calcium 10.9 mg/dL (8.7-10.3); Carbon Dioxide 34.8 mmol/L (20.0-27.5); Potassium 4.5 mmol/L (3.5-5.5); Total Bilirubin 0.6 mg/dL (0.30-1.20); Total Protein 5.6 g/dL (6.2-8.2)
[2021-08-19] MEDS ORDERED: WARFARIN 2 MG TAB PO ONE (18:00)
--- NOTE | 2021-08-19 18:42 | P.PN ---
Subjective Progress Note Date: 08/19/21 Alix Odonnell, he is a 76-year-old female who was at [facility] for rehab after a recent admission, patient had abnormal lab test that revealed a hemoglobin of 5 and elevated INR of 9, patient also had recent fall and multiple bruises, she was sent to [facility] for evaluation and treatment. She was evaluated in the emergency room vital examination on presentation re vealed a temperature of 98 pulse 60 respiration 16 blood pressure 134/100 pulse ox 100% on room air Laboratory data revealed a white blood count of 7.5 hemoglobin 5.4 platelet count 182 sodium 133 potassium 3.9 chloride 92 CO2 39 BUN 35 creatinine 1.20 Testing in the emergency room revealed elbow x-ray revealed no evidence of acute fracture or dislocation in the right elbow, EKG revealed electronic ventricular pacemaker with prolonged QT interval Patient was given vitamin K and red blood cell transfusion in the emergency room, she was admitted to medical floor for further evaluation and treatment, cardiology consultation was requested On 08/13/2021 patient is alert and oriented 3 sitting comfortably in bed. Hemoglobin 5.7. 1 more unit of PRBCs have been ordered. 20 mg IV Lasix also to be ordered after unit of blood. Patient complaining of increased pain to right hip will order x-ray to rule out fracture. Patient also requesting something for pain control. Will order [place]. This time patient denies chest pain or shortness breath. Patient denies nausea vomiting or diarrhea. Patient denies any urinary burning or frequency. INR today 2.4. Cardiology services have been consulted On 08/14/2021 patient was seen and examined on the medical floor she is alert and oriented 3 in no apparent distress there is no fever or chills no headache or dizziness no chest pain no shortness of breath no cough no nausea or vomiting no abdominal pain no diarrhea no blood in the stools no burning with urination no frequency or urgency and no hematuria On 08/15/2021 patient is alert and oriented 3. Patient currently resting comfortably in bed. Awaiting lab results. Patient was started back on Coumadin 2 mg history per cardiology. No signs of hematuria for GI bleed. Patient d enies chest pain or shortness of breath. Patient denies nausea vomiting or diarrhea. Patient denies any urinary burning or frequency On 08/16/2021 patient was seen and examined on the medical floor she is alert and oriented 3 in no apparent distress there is no fever or chills no headache or dizziness no chest pain no shortness of breath no cough no nausea or vomiting no abdominal pain no diarrhea and no urinary symptoms. Vital exam reveals a temperature of 97.5 pulse 60 respiration 16 blood pressure 103/51 pulse ox 98% on 2 L nasal cannula, white blood count 6.0 hemoglobin 7.9 platelet count 202 INR 1.9 On 08/17/2021 patient is alert and oriented 3. Awaiting lab work for today. Patient remains on ibuprofen Rocephin for urinary tract infection. Urine culture pending. No signs of active bleeding. Patient is currently resting comfortably in bed. Patient denies chest pain or shortness breath. Patient denies nausea vomiting or diarrhea. Patient denies any urinary burning or frequency. On 08/18/2021 patient was seen and examined on the medical floor she is alert and oriented 3 in no apparent distress there is no fever or chills no headache or dizziness no chest pain no shortness of breath no cough no nausea or vomiting no abdominal pain no diarrhea and no urinary symptoms. Patient has artificial valve and is maintained on Coumadin INR should be 2.5-3.5 she continues to be subtherapeutic since admission Will continue to monitor as inpatient as we are having significant difficulty with controlling her INR On 08/19/2021 patient was seen and examined on the medical floor she is alert and oriented 3 in no apparent distress there is no fever or chills no headache or dizziness no chest pain no shortness of breath no cough no nausea or vomiting no abdominal pain no diarrhea no blood in the stools no burning with urination no frequency or urgency and no hematuria, INR is still subtherapeutic at 2.0, it should be up to 2.5-3.5 because of mechanical valve patient hemoglobin is down to 6.8 today I ordered 1 unit of red blood cell transfusion however this was bl ocked because of new guideline to transfuse only below 6.5, will recheck labs in a.m. I will check iron level if it is normal I will give some IV iron Objective - Vital Signs Vital signs: Vital Signs Temp 98.5 F 08/19/21 07:40 Pulse 62 08/19/21 07:40 Resp 16 08/19/21 07:40 BP 135/71 08/19/21 07:40 Pulse Ox 95 08/19/21 07:40 Intake & Output 08/18/21 08/19/21 08/19/21 18:59 06:59 18:59 Intake Total 290 Output Total 900 Balance 290 -900 Weight 68.5 kg Intake: Intake, IV Titration 50 Amount cefTRIAXone 1 gm In 50 Sodium Chloride 0.9% 50 ml @ 100 mls/hr IVPB Q24HR [facility] Rx#:[id number] Oral 240 Output: Urine 900 Stool 0 Other: Voiding Method Diaper Diaper Diaper Incontinent Incontinent Incontinent External Catheter - Exam In general patient is alert and oriented x 3 in no distress HEENT head normocephalic and atraumatic Neck is supple no JVD no goiter no lymphadenopathy no carotid bruit Chest examination is clear to auscultation no crackles no wheezing Cardiac exam reveals regular heart sounds S1 and S2 no gallops no murmurs Abdomen is soft nontender no organomegaly with normal bowel sounds Extremity exam reveals no edema no cyanosis or clubbing Neurological examination reveals no gross focal deficits - Labs CBC & Chem 7: 08/19/21 07:16 08/19/21 07:16 Labs: Abnormal Lab Results - Last 24 Hours (Table) 08/19/21 Range/Units 07:16 PT 20.6 H (9.0-12.0) sec INR 2.0 H (<1.2) Assessment and Plan Plan: Anemia, no evidence of bleeding at this time, patient has multiple bruises from recent fall Coagulopathy, INR >9 given vitamin K in ER, recheck INR in am and recheck INR 2.4. Recent fall with multiple bruises with right upper extremity injury no evidence of fracture Underlying history of artificial aortic valve History of CKD History of stroke Previous history of GI bleed History of chronic congestive heart failure Right hip pain. Hip x-ray negative At this time admit patient to telemetry contiue monitoring CBC and INR She has been restarted back on Coumadin per pharmacy Cardiology consult
[2021-08-19] MEDS: HYDROcodone/APAP 5-325MG 1 EACH TAB PO PRN (20:50)
[2021-08-20] MEDS: HYDROcodone/APAP 5-325MG 1 EACH TAB PO PRN (04:57)
[2021-08-20] MEDS: DOCUSATE 100 MG CAP PO SCH ×2 (08:25→19:46)
[2021-08-20] MEDS: PANTOPRAZOLE 40 MG/10 ML VIAL IV SCH ×2 (08:25→19:46)
[2021-08-20] MEDS: FAMOTIDINE 20 MG TAB PO SCH (08:25)
[2021-08-20] MEDS: carvediloL 6.25 MG TAB PO SCH ×2 (08:25→17:30)
[2021-08-20] MEDS: FUROSEMIDE 40 MG TAB PO SCH ×2 (08:25→15:13)
[2021-08-20] MEDS: AMIODARONE 100 MG TAB PO SCH (08:25)
[2021-08-20] MEDS: ALPRAZolam 0.25 MG TAB PO SCH (08:25)
[2021-08-20 08:32] LABS: INR 2.3 (<1.2)
[2021-08-20 09:30] LABS: % Iron Saturation 10.44 (12.00-45.00)
[2021-08-20] MEDS ORDERED: LACTULOSE 20 GM/30 ML CUP PO ONE (09:51)
[2021-08-20 11:08] LABS: Basophils # (A) 0.04 X 10*3/uL (0.00-0.10); Basophils % (A) 0.7 %; Eosinophils # (A) 0.24 X 10*3/uL (0.04-0.35); Eosinophils % (A) 4.2 %; HCT 25.5 % (37.2-46.3); HGB 7.1 g/dL (12.0-15.0); Lymphocytes # (A) 0.57 X 10*3/uL (0.90-5.00); Lymphocytes % (A) 9.9 %; MCHC 27.8 g/dL (32.0-37.0); MCV 100.4 fL (80.0-97.0); Mean Platelet Volume 11.2 fL (9.5-12.2); Monocytes # (A) 0.65 X 10*3/uL (0.20-1.00); Monocytes % (A) 11.2 %; NRBC Per 100 WBC 0 /100 WBCS (0.0-0.0); Neutrophils # (A) 4.22 X 10*3/uL (1.80-7.70); Platelet Count 256 X 10*3/uL (140-440); RBC 2.54 X 10*6/uL (4.10-5.20); RDW 17.3 % (11.5-14.5); WBC 5.78 X 10*3/uL (4.50-10.00)
[2021-08-20 11:20] LABS: African American GFR (CKD) 51.2 (60.0-200.0); Albumin 2.6 g/dL (3.8-4.9); Albumin/Globulin Ratio 0.84 (1.60-3.17); Anion Gap 7.6 mmol/L (10.00-18.00); BUN/Creat Ratio 18.58 Ratio (12.00-20.00); Blood Urea Nitrogen 22.3 mg/dL (9.0-27.0); Calcium 11.1 mg/dL (8.7-10.3); Carbon Dioxide 32.9 mmol/L (20.0-27.5); Globulin 3.1 g/dL (1.6-3.3); Non-African American GFR(CKD) 44.2 (60.0-200.0); Potassium 4.3 mmol/L (3.5-5.5); Total Bilirubin 0.6 mg/dL (0.30-1.20); Total Protein 5.7 g/dL (6.2-8.2)
--- NOTE | 2021-08-20 12:51 | P.PN ---
Subjective Progress Note Date: 08/20/21 Alix Odonnell, he is a 76-year-old female who was at [facility] for rehab after a recent admission, patient had abnormal lab test that revealed a hemoglobin of 5 and elevated INR of 9, patient also had recent fall and multiple bruises, she was sent to [facility] for evaluation and treatment. She was evaluated in the emergency room vital examination on presentation re vealed a temperature of 98 pulse 60 respiration 16 blood pressure 134/100 pulse ox 100% on room air Laboratory data revealed a white blood count of 7.5 hemoglobin 5.4 platelet count 182 sodium 133 potassium 3.9 chloride 92 CO2 39 BUN 35 creatinine 1.20 Testing in the emergency room revealed elbow x-ray revealed no evidence of acute fracture or dislocation in the right elbow, EKG revealed electronic ventricular pacemaker with prolonged QT interval Patient was given vitamin K and red blood cell transfusion in the emergency room, she was admitted to medical floor for further evaluation and treatment, cardiology consultation was requested On 08/13/2021 patient is alert and oriented 3 sitting comfortably in bed. Hemoglobin 5.7. 1 more unit of PRBCs have been ordered. 20 mg IV Lasix also to be ordered after unit of blood. Patient complaining of increased pain to right hip will order x-ray to rule out fracture. Patient also requesting something for pain control. Will order [place]. This time patient denies chest pain or shortness breath. Patient denies nausea vomiting or diarrhea. Patient denies any urinary burning or frequency. INR today 2.4. Cardiology services have been consulted On 08/14/2021 patient was seen and examined on the medical floor she is alert and oriented 3 in no apparent distress there is no fever or chills no headache or dizziness no chest pain no shortness of breath no cough no nausea or vomiting no abdominal pain no diarrhea no blood in the stools no burning with urination no frequency or urgency and no hematuria On 08/15/2021 patient is alert and oriented 3. Patient currently resting comfortably in bed. Awaiting lab results. Patient was started back on Coumadin 2 mg history per cardiology. No signs of hematuria for GI bleed. Patient d enies chest pain or shortness of breath. Patient denies nausea vomiting or diarrhea. Patient denies any urinary burning or frequency On 08/16/2021 patient was seen and examined on the medical floor she is alert and oriented 3 in no apparent distress there is no fever or chills no headache or dizziness no chest pain no shortness of breath no cough no nausea or vomiting no abdominal pain no diarrhea and no urinary symptoms. Vital exam reveals a temperature of 97.5 pulse 60 respiration 16 blood pressure 103/51 pulse ox 98% on 2 L nasal cannula, white blood count 6.0 hemoglobin 7.9 platelet count 202 INR 1.9 On 08/17/2021 patient is alert and oriented 3. Awaiting lab work for today. Patient remains on ibuprofen Rocephin for urinary tract infection. Urine culture pending. No signs of active bleeding. Patient is currently resting comfortably in bed. Patient denies chest pain or shortness breath. Patient denies nausea vomiting or diarrhea. Patient denies any urinary burning or frequency. On 08/18/2021 patient was seen and examined on the medical floor she is alert and oriented 3 in no apparent distress there is no fever or chills no headache or dizziness no chest pain no shortness of breath no cough no nausea or vomiting no abdominal pain no diarrhea and no urinary symptoms. Patient has artificial valve and is maintained on Coumadin INR should be 2.5-3.5 she continues to be subtherapeutic since admission Will continue to monitor as inpatient as we are having significant difficulty with controlling her INR On 08/19/2021 patient was seen and examined on the medical floor she is alert and oriented 3 in no apparent distress there is no fever or chills no headache or dizziness no chest pain no shortness of breath no cough no nausea or vomiting no abdominal pain no diarrhea no blood in the stools no burning with urination no frequency or urgency and no hematuria, INR is still subtherapeutic at 2.0, it should be up to 2.5-3.5 because of mechanical valve patient hemoglobin is down to 6.8 today I ordered 1 unit of red blood cell transfusion however this was bl ocked because of new guideline to transfuse only below 6.5, will recheck labs in a.m. I will check iron level if it is normal I will give some IV iron On 08/20/2021 patient is alert and oriented 3. Patient currently maintained on Colace for constipation we'll add lactulose. INR 2.3. Coumadin dosing per pharmacy goal 2.5-3.5 Mechanical heart valve. Patient's hemoglobin today 7.1. Will order repeat labs for a.m. at this time patient denies chest pain or shortness breath. Patient denies nausea vomiting or diarrhea. Patient denies any urinary burning frequency Objective - Vital Signs Vital signs: Vital Signs Temp 97.4 F L 08/20/21 05:00 Pulse 60 08/20/21 08:24 Resp 20 08/20/21 05:00 BP 128/66 08/20/21 08:24 Pulse Ox 99 08/20/21 05:00 Intake & Output 08/19/21 08/20/21 08/20/21 18:59 06:59 18:59 Intake Total 500 Output Total 300 1175 Balance -300 -675 Intake: Oral 500 Output: Urine 300 1175 Stool 0 Other: Voiding Method External Catheter External Catheter External Catheter # Voids 3 - Exam In general patient is alert and oriented x 3 in no distress HEENT head normocephalic and atraumatic Neck is supple no JVD no goiter no lymphadenopathy no carotid bruit Chest examination is clear to auscultation no crackles no wheezing Cardiac exam reveals regular heart sounds S1 and S2 no gallops no murmurs Abdomen is soft nontender no organomegaly with normal bowel sounds Extremity exam reveals no edema no cyanosis or clubbing Neurological examination reveals no gross focal deficits - Labs CBC & Chem 7: 08/20/21 07:52 08/20/21 07:52 Labs: Abnormal Lab Results - Last 24 Hours (Table) 08/19/21 08/19/21 08/19/21 Range/Units 07:16 07:16 13:21 RBC (4.10-5.20) X 10*6/uL Hgb (12.0-15.0) g/dL Hct (37.2-46.3) % MCV (80.0-97.0) fL MCHC (32.0-37.0) g/dL RDW (11.5-14.5) % Immature Gran # (0.00-0.04) X 10*3/uL Lymphocytes # (0.90-5.00) X 10*3/uL PT (9.0-12.0) sec INR (<1.2) Chloride 93 L (96-109) mmol/L Carbon Dioxide 34.8 H (20.0-27.5) mmol/L Anion Gap 6.60 L (10.00-18.00) mmol/L BUN 27.2 H (9.0-27.0) mg/dL Est GFR (CKD-EPI)AfAm 54.5 L (60.0-200.0) Est GFR (CKD-EPI)NonAf 47.0 L (60.0-200.0) BUN/Creatinine Ratio 23.86 H (12.00-20.00) Ratio Calcium 10.9 H (8.7-10.3) mg/dL Iron 32 L (50-170) ug/dL % Saturation 10.44 L (12.00-45.00) AST 12 L (13-35) U/L ALT 6 L (8-44) U/L Total Protein 5.6 L (6.2-8.2) g/dL Albumin 2.6 L (3.8-4.9) g/dL Albumin/Globulin Ratio 0.86 L (1.60-3.17) g/dL Crossmatch See Detail 08/20/21 08/20/21 08/20/21 Range/Units 07:52 07:52 07:52 RBC 2.54 L (4.10-5.20) X 10*6/uL Hgb 7.1 L (12.0-15.0) g/dL Hct 25.5 L (37.2-46.3) % MCV 100.4 H (80.0-97.0) fL MCHC 27.8 L (32.0-37.0) g/dL RDW 17.3 H (11.5-14.5) % Immature Gran # 0.06 H (0.00-0.04) X 10*3/uL Lymphocytes # 0.57 L (0.90-5.00) X 10*3/uL PT 23.0 H (9.0-12.0) sec INR 2.3 H (<1.2) Chloride (96-109) mmol/L Carbon Dioxide 32.9 H (20.0-27.5) mmol/L Anion Gap 7.60 L (10.00-18.00) mmol/L BUN (9.0-27.0) mg/dL Est GFR (CKD-EPI)AfAm 51.2 L (60.0-200.0) Est GFR (CKD-EPI)NonAf 44.2 L (60.0-200.0) BUN/Creatinine Ratio (12.00-20.00) Ratio Calcium 11.1 H (8.7-10.3) mg/dL Iron (50-170) ug/dL % Saturation (12.00-45.00) AST (13-35) U/L ALT 5 L (8-44) U/L Total Protein 5.7 L (6.2-8.2) g/dL Albumin 2.6 L (3.8-4.9) g/dL Albumin/Globulin Ratio 0.84 L (1.60-3.17) g/dL Crossmatch Assessment and Plan Plan: Anemia, no evidence of bleeding at this time, patient has multiple bruises from recent fall Coagulopathy, INR >9 given vitamin K in ER, recheck INR in am and recheck INR 2.4. Recent fall with multiple bruises with right upper extremity injury no evidence of fracture Underlying history of artificial aortic valve History of CKD History of stroke Previous history of GI bleed History of chronic congestive heart failure Right hip pain. Hip x-ray negative Constipation. Lactulose added DVT prophylaxis Coumadin. GI prophylaxis Protonix At this time admit patient to telemetry contiue monitoring CBC and INR She has been restarted back on Coumadin per pharmacy Cardiology consult
[2021-08-20] MEDS: ACETAMINOPHEN TAB 325 MG TAB PO PRN (15:13)
[2021-08-20] MEDS ORDERED: WARFARIN 3 MG TAB PO ONE (18:00)
[2021-08-21] MEDS: ACETAMINOPHEN TAB 325 MG TAB PO PRN (05:55)
[2021-08-21 07:26] LABS: INR 2.6 (<1.2)
[2021-08-21] MEDS: IPRATROPIUM-ALBUTEROL 3 ML NEB INHALATION PRN (07:39)
[2021-08-21] MEDS ORDERED: SODIUM FERRIC GLUCONAT-SUCROSE 125 MG in SODIUM CHLORIDE 0.9% 100 ML IVPB ONE (07:54)
[2021-08-21] MEDS: carvediloL 6.25 MG TAB PO SCH ×2 (07:59→17:19)
[2021-08-21] MEDS: PANTOPRAZOLE 40 MG/10 ML VIAL IV SCH ×2 (09:01→19:19)
[2021-08-21 09:31] LABS: Basophils # (A) 0.06 X 10*3/uL (0.00-0.10); Eosinophils # (A) 0.21 X 10*3/uL (0.04-0.35); Eosinophils % (A) 3.4 %; HCT 25.7 % (37.2-46.3); HGB 7.1 g/dL (12.0-15.0); Immature Grans, Automated 0.7 %; Lymphocytes # (A) 0.55 X 10*3/uL (0.90-5.00); MCH 27.7 pg (27.0-32.0); MCHC 27.6 g/dL (32.0-37.0); MCV 100.4 fL (80.0-97.0); Mean Platelet Volume 11.9 fL (9.5-12.2); Monocytes # (A) 0.66 X 10*3/uL (0.20-1.00); Monocytes % (A) 10.8 %; NRBC Per 100 WBC 0 /100 WBCS (0.0-0.0); Neutrophils # (A) 4.58 X 10*3/uL (1.80-7.70); Neutrophils % (A) 75.1 %; Platelet Count 264 X 10*3/uL (140-440); RBC 2.56 X 10*6/uL (4.10-5.20)
[2021-08-21 10:02] LABS: African American GFR (CKD) 63.8 (60.0-200.0); Albumin 2.7 g/dL (3.8-4.9); Albumin/Globulin Ratio 0.87 (1.60-3.17); Anion Gap 8.2 mmol/L (10.00-18.00); BUN/Creat Ratio 20.6 Ratio (12.00-20.00); Blood Urea Nitrogen 20.6 mg/dL (9.0-27.0); Calcium 11.2 mg/dL (8.7-10.3); Carbon Dioxide 32.8 mmol/L (20.0-27.5); Globulin 3.1 g/dL (1.6-3.3); Non-African American GFR(CKD) 55.1 (60.0-200.0); Total Bilirubin 0.7 mg/dL (0.30-1.20); Total Protein 5.8 g/dL (6.2-8.2)
[2021-08-21] MEDS: FUROSEMIDE 40 MG TAB PO SCH ×2 (11:40→17:19)
[2021-08-21] MEDS: DOCUSATE 100 MG CAP PO SCH ×3 (11:40→19:19)
[2021-08-21] MEDS: ALPRAZolam 0.25 MG TAB PO SCH (11:40)
[2021-08-21] MEDS: FAMOTIDINE 20 MG TAB PO SCH (11:40)
[2021-08-21] MEDS: AMIODARONE 100 MG TAB PO SCH (11:40)
[2021-08-21] MEDS: HYDROcodone/APAP 5-325MG 1 EACH TAB PO PRN (17:19)
--- NOTE | 2021-08-21 17:27 | P.PN ---
Subjective Progress Note Date: 08/21/21 Alix Odonnell, he is a 76-year-old female who was at [facility] for rehab after a recent admission, patient had abnormal lab test that revealed a hemoglobin of 5 and elevated INR of 9, patient also had recent fall and multiple bruises, she was sent to [facility] for evaluation and treatment. She was evaluated in the emergency room vital examination on presentation re vealed a temperature of 98 pulse 60 respiration 16 blood pressure 134/100 pulse ox 100% on room air Laboratory data revealed a white blood count of 7.5 hemoglobin 5.4 platelet count 182 sodium 133 potassium 3.9 chloride 92 CO2 39 BUN 35 creatinine 1.20 Testing in the emergency room revealed elbow x-ray revealed no evidence of acute fracture or dislocation in the right elbow, EKG revealed electronic ventricular pacemaker with prolonged QT interval Patient was given vitamin K and red blood cell transfusion in the emergency room, she was admitted to medical floor for further evaluation and treatment, cardiology consultation was requested On 08/13/2021 patient is alert and oriented 3 sitting comfortably in bed. Hemoglobin 5.7. 1 more unit of PRBCs have been ordered. 20 mg IV Lasix also to be ordered after unit of blood. Patient complaining of increased pain to right hip will order x-ray to rule out fracture. Patient also requesting something for pain control. Will order [place]. This time patient denies chest pain or shortness breath. Patient denies nausea vomiting or diarrhea. Patient denies any urinary burning or frequency. INR today 2.4. Cardiology services have been consulted On 08/14/2021 patient was seen and examined on the medical floor she is alert and oriented 3 in no apparent distress there is no fever or chills no headache or dizziness no chest pain no shortness of breath no cough no nausea or vomiting no abdominal pain no diarrhea no blood in the stools no burning with urination no frequency or urgency and no hematuria On 08/15/2021 patient is alert and oriented 3. Patient currently resting comfortably in bed. Awaiting lab results. Patient was started back on Coumadin 2 mg history per cardiology. No signs of hematuria for GI bleed. Patient d enies chest pain or shortness of breath. Patient denies nausea vomiting or diarrhea. Patient denies any urinary burning or frequency On 08/16/2021 patient was seen and examined on the medical floor she is alert and oriented 3 in no apparent distress there is no fever or chills no headache or dizziness no chest pain no shortness of breath no cough no nausea or vomiting no abdominal pain no diarrhea and no urinary symptoms. Vital exam reveals a temperature of 97.5 pulse 60 respiration 16 blood pressure 103/51 pulse ox 98% on 2 L nasal cannula, white blood count 6.0 hemoglobin 7.9 platelet count 202 INR 1.9 On 08/17/2021 patient is alert and oriented 3. Awaiting lab work for today. Patient remains on ibuprofen Rocephin for urinary tract infection. Urine culture pending. No signs of active bleeding. Patient is currently resting comfortably in bed. Patient denies chest pain or shortness breath. Patient denies nausea vomiting or diarrhea. Patient denies any urinary burning or frequency. On 08/18/2021 patient was seen and examined on the medical floor she is alert and oriented 3 in no apparent distress there is no fever or chills no headache or dizziness no chest pain no shortness of breath no cough no nausea or vomiting no abdominal pain no diarrhea and no urinary symptoms. Patient has artificial valve and is maintained on Coumadin INR should be 2.5-3.5 she continues to be subtherapeutic since admission Will continue to monitor as inpatient as we are having significant difficulty with controlling her INR On 08/19/2021 patient was seen and examined on the medical floor she is alert and oriented 3 in no apparent distress there is no fever or chills no headache or dizziness no chest pain no shortness of breath no cough no nausea or vomiting no abdominal pain no diarrhea no blood in the stools no burning with urination no frequency or urgency and no hematuria, INR is still subtherapeutic at 2.0, it should be up to 2.5-3.5 because of mechanical valve patient hemoglobin is down to 6.8 today I ordered 1 unit of red blood cell transfusion however this was bl ocked because of new guideline to transfuse only below 6.5, will recheck labs in a.m. I will check iron level if it is normal I will give some IV iron On 08/20/2021 patient is alert and oriented 3. Patient currently maintained on Colace for constipation we'll add lactulose. INR 2.3. Coumadin dosing per pharmacy goal 2.5-3.5 Mechanical heart valve. Patient's hemoglobin today 7.1. Will order repeat labs for a.m. at this time patient denies chest pain or shortness breath. Patient denies nausea vomiting or diarrhea. Patient denies any urinary burning frequency On 08/21/2021 patient is alert and oriented 3. There is no fever or chills no headache or dizziness no chest pain no shortness of breath no cough no nausea or vomiting no abdominal pain no diarrhea and no urinary symptoms, INR 2.6. Coumadin dosing per pharmacy goal 2.5-3.5 Mechanical heart valve. Patient's hemoglobin today 7.1. Will order repeat labs for a.m. possible transfer back to half-way tomorrow Objective - Vital Signs Vital signs: Vital Signs Temp 97.9 F 08/21/21 07:20 Pulse 60 08/21/21 07:49 Resp 16 08/21/21 07:20 BP 104/58 08/21/21 07:20 Pulse Ox 96 08/21/21 07:38 Intake & Output 08/20/21 08/21/21 08/21/21 18:59 06:59 18:59 Output Total 1000 1100 Balance -1000 -1100 Output: Urine 1000 1100 Stool 0 Other: Voiding Method External Catheter External Catheter # Bowel Movements 2 - Exam In general patient is alert and oriented x 3 in no distress HEENT head normocephalic and atraumatic Neck is supple no JVD no goiter no lymphadenopathy no carotid bruit Chest examination is clear to auscultation no crackles no wheezing Cardiac exam reveals regular heart sounds S1 and S2 no gallops no murmurs Abdomen is soft nontender no organomegaly with normal bowel sounds Extremity exam reveals no edema no cyanosis or clubbing Neurological examination reveals no gross focal deficits - Labs CBC & Chem 7: 08/21/21 06:40 08/21/21 06:40 Labs: Abnormal Lab Results - Last 24 Hours (Table) 08/19/21 08/20/21 08/20/21 Range/Units 07:16 07:52 07:52 RBC 2.54 L (4.10-5.20) X 10*6/uL Hgb 7.1 L (12.0-15.0) g/dL Hct 25.5 L (37.2-46.3) % MCV 100.4 H (80.0-97.0) fL MCHC 27.8 L (32.0-37.0) g/dL RDW 17.3 H (11.5-14.5) % Immature Gran # 0.06 H (0.00-0.04) X 10*3/uL Lymphocytes # 0.57 L (0.90-5.00) X 10*3/uL PT 23.0 H (9.0-12.0) sec INR 2.3 H (<1.2) Carbon Dioxide (20.0-27.5) mmol/L Anion Gap (10.00-18.00) mmol/L Est GFR (CKD-EPI)AfAm (60.0-200.0) Est GFR (CKD-EPI)NonAf (60.0-200.0) Calcium (8.7-10.3) mg/dL Iron 32 L (50-170) ug/dL % Saturation 10.44 L (12.00-45.00) ALT (8-44) U/L Total Protein (6.2-8.2) g/dL Albumin (3.8-4.9) g/dL Albumin/Globulin Ratio (1.60-3.17) g/dL 08/20/21 08/21/21 Range/Units 07:52 06:40 RBC (4.10-5.20) X 10*6/uL Hgb (12.0-15.0) g/dL Hct (37.2-46.3) % MCV (80.0-97.0) fL MCHC (32.0-37.0) g/dL RDW (11.5-14.5) % Immature Gran # (0.00-0.04) X 10*3/uL Lymphocytes # (0.90-5.00) X 10*3/uL PT 26.0 H (9.0-12.0) sec INR 2.6 H (<1.2) Carbon Dioxide 32.9 H (20.0-27.5) mmol/L Anion Gap 7.60 L (10.00-18.00) mmol/L Est GFR (CKD-EPI)AfAm 51.2 L (60.0-200.0) Est GFR (CKD-EPI)NonAf 44.2 L (60.0-200.0) Calcium 11.1 H (8.7-10.3) mg/dL Iron (50-170) ug/dL % Saturation (12.00-45.00) ALT 5 L (8-44) U/L Total Protein 5.7 L (6.2-8.2) g/dL Albumin 2.6 L (3.8-4.9) g/dL Albumin/Globulin Ratio 0.84 L (1.60-3.17) g/dL Assessment and Plan Plan: Anemia, no evidence of bleeding at this time, patient has multiple bruises from recent fall Coagulopathy, INR >9 given vitamin K in ER, recheck INR in am and recheck INR 2.4. Recent fall with multiple bruises with right upper extremity injury no evidence of fracture Underlying history of artificial aortic valve History of CKD History of stroke Previous history of GI bleed History of chronic congestive heart failure Right hip pain. Hip x-ray negative Constipation. Lactulose added DVT prophylaxis Coumadin. GI prophylaxis Protonix At this time admit patient to telemetry contiue monitoring CBC and INR She has been restarted back on Coumadin per pharmacy Cardiology consult
[2021-08-21] MEDS ORDERED: WARFARIN 3 MG TAB PO ONE (18:00)
[2021-08-22] MEDS: ACETAMINOPHEN TAB 325 MG TAB PO PRN ×2 (03:13→09:11)
[2021-08-22 04:13] VITALS: PULSE 60
[2021-08-22 06:52] LABS: INR 3.2 (<1.2); Prothrombin Time 32.3 sec (9.0-12.0)
[2021-08-22] MEDS: carvediloL 6.25 MG TAB PO SCH (07:56)
[2021-08-22] MEDS: PANTOPRAZOLE 40 MG/10 ML VIAL IV SCH (08:48)
[2021-08-22] MEDS: DOCUSATE 100 MG CAP PO SCH (08:48)
[2021-08-22] MEDS: FAMOTIDINE 20 MG TAB PO SCH (08:48)
[2021-08-22] MEDS: ALPRAZolam 0.25 MG TAB PO SCH (08:48)
[2021-08-22] MEDS: FUROSEMIDE 40 MG TAB PO SCH ×2 (08:48→16:18)
[2021-08-22] MEDS: AMIODARONE 100 MG TAB PO SCH (08:49)
[2021-08-22 09:40] LABS: Basophils # (A) 0.06 X 10*3/uL (0.00-0.10); Basophils % (A) 1.1 %; Eosinophils # (A) 0.48 X 10*3/uL (0.04-0.35); Eosinophils % (A) 8.5 %; HCT 26.1 % (37.2-46.3); HGB 7.2 g/dL (12.0-15.0); Immature Grans, Automated 0.7 %; Lymphocytes % (A) 8.8 %; MCH 27.9 pg (27.0-32.0); MCHC 27.6 g/dL (32.0-37.0); MCV 101.2 fL (80.0-97.0); Mean Platelet Volume 11.5 fL (9.5-12.2); Monocytes # (A) 0.72 X 10*3/uL (0.20-1.00); Monocytes % (A) 12.7 %; NRBC Per 100 WBC 0 /100 WBCS (0.0-0.0); Neutrophils # (A) 3.87 X 10*3/uL (1.80-7.70); Neutrophils % (A) 68.2 %; Platelet Count 274 X 10*3/uL (140-440); RBC 2.58 X 10*6/uL (4.10-5.20); RDW 17.5 % (11.5-14.5); WBC 5.67 X 10*3/uL (4.50-10.00)
[2021-08-22 10:03] LABS: ALT <5 U/L (8-44); AST 11 U/L (13-35); African American GFR (CKD) 63.8 (60.0-200.0); Albumin 2.6 g/dL (3.8-4.9); Albumin/Globulin Ratio 0.84 (1.60-3.17); Alkaline Phosphatase 63 U/L (41-126); Blood Urea Nitrogen 20.6 mg/dL (9.0-27.0); Calcium 11.3 mg/dL (8.7-10.3); Carbon Dioxide 36.8 mmol/L (20.0-27.5); Chloride 98 mmol/L (96-109); Globulin 3.1 g/dL (1.6-3.3); Glucose 90 mg/dL (70-110); Non-African American GFR(CKD) 55.1 (60.0-200.0); Sodium 139 mmol/L (135-145); Total Protein 5.7 g/dL (6.2-8.2)
--- NOTE | 2021-08-22 11:12 | P.DS ---
Providers Date of admission: 08/12/21 08:37 Expected date of discharge: 08/22/21 Attending physician: Pauly Sosa Consults: 08/12/21 18:55 Consult Physician Routine Consulting Provider: Jam Garcia Consult Reason/Comments: CHF, Artificial valve Do you want consulting provider notified?: Yes Primary care physician: Pauly [facility] Course: Discharge diagnosis Anemia, no evidence of bleeding at this time, patient has multiple bruises from recent fall Coagulopathy, INR >9 given vitamin K in ER, recheck INR in am and recheck INR 2.4. Recent fall with multiple bruises with right upper extremity injury no evidence of fracture Underlying history of artificial aortic valve History of CKD History of stroke Previous history of GI bleed History of chronic congestive heart failure Right hip pain. Hip x-ray negative Constipation. Lactulose added Hospital course Alix Odonnell, he is a 76-year-old female who was at [facility] for rehab after a recent admission, patient had abnormal lab test that revealed a hemoglobin of 5 and elevated INR of 9, patient also had recent fall and multiple bruises, she was sent to [facility] for evaluation and treatment. She was evaluated in the emergency room vital examination on presentation revealed a temperature of 98 pulse 60 respiration 16 blood pressure 134/100 pulse ox 100% on room air Laboratory data revealed a white blood count of 7.5 hemoglobin 5.4 platelet count 182 sodium 133 potassium 3.9 chloride 92 CO2 39 BUN 35 creatinine 1.20 Testing in the emergency room revealed elbow x-ray revealed no evidence of acute fracture or dislocation in the right elbow, EKG revealed electronic ventricular pacemaker with prolonged QT interval Patient was given vitamin K and red blood cell transfusion in the emergency room, she was admitted to medical floor for further evaluation and treatment, cardiology consultation was requested On 08/13/2021 patient is alert and oriented 3 sitting comfortably in bed. Hemoglobin 5.7. 1 more unit of PRBCs have been ordered. 20 mg IV Lasix also to be ordered after unit of blood. Patient complaining of increased pain to right hip will order x-ray to rule out fracture. Patient also requesting something for pain control. Will order [place]. This time patient denies chest pain or shortness breath. Patient denies nausea vomiting or diarrhea. Patient denies any urinary burning or frequency. INR today 2.4. Cardiology services have been consulted On 08/14/2021 patient was seen and examined on the medical floor she is alert an d oriented 3 in no apparent distress there is no fever or chills no headache or dizziness no chest pain no shortness of breath no cough no nausea or vomiting no abdominal pain no diarrhea no blood in the stools no burning with urination no frequency or urgency and no hematuria On 08/15/2021 patient is alert and oriented 3. Patient currently resting comfortably in bed. Awaiting lab results. Patient was started back on Coumadin 2 mg history per cardiology. No signs of hematuria for GI bleed. Patient denies chest pain or shortness of breath. Patient denies nausea vomiting or diarrhea. Patient denies any urinary burning or frequency On 08/16/2021 patient was seen and examined on the medical floor she is alert and oriented 3 in no apparent distress there is no fever or chills no headache or dizziness no chest pain no shortness of breath no cough no nausea or vomiting no abdominal pain no diarrhea and no urinary symptoms. Vital exam reveals a temperature of 97.5 pulse 60 respiration 16 blood pressure 103/51 pulse ox 98% on 2 L nasal cannula, white blood count 6.0 hemoglobin 7.9 platelet count 202 INR 1.9 On 08/17/2021 patient is alert and oriented 3. Awaiting lab work for today. Patient remains on ibuprofen Rocephin for urinary tract infection. Urine culture pending. No signs of active bleeding. Patient is currently resting comfortably in bed. Patient denies chest pain or shortness breath. Patient denies nausea vomiting or diarrhea. Patient denies any urinary burning or frequency. On 08/18/2021 patient was seen and examined on the medical floor she is alert and oriented 3 in no apparent distress there is no fever or chills no headache or dizziness no chest pain no shortness of breath no cough no nausea or vomiting no abdominal pain no diarrhea and no urinary symptoms. Patient has artificial valve and is maintained on Coumadin INR should be 2.5-3.5 she continues to be subtherapeutic since admission Will continue to monitor as inpatient as we are h aving significant difficulty with controlling her INR On 08/19/2021 patient was seen and examined on the medical floor she is alert and oriented 3 in no apparent distress there is no fever or chills no headache or dizziness no chest pain no shortness of breath no cough no nausea or vomiting no abdominal pain no diarrhea no blood in the stools no burning with urination no frequency or urgency and no hematuria, INR is still subtherapeutic at 2.0, it should be up to 2.5-3.5 because of mechanical valve patient hemoglobin is down to 6.8 today I ordered 1 unit of red blood cell transfusion however this was blocked because of new guideline to transfuse only below 6.5, will recheck labs in a.m. I will check iron level if it is normal I will give some IV iron On 08/20/2021 patient is alert and oriented 3. Patient currently maintained on Colace for constipation we'll add lactulose. INR 2.3. Coumadin dosing per pharmacy goal 2.5-3.5 Mechanical heart valve. Patient's hemoglobin today 7.1. Will order repeat labs for a.m. at this time patient denies chest pain or shortness breath. Patient denies nausea vomiting or diarrhea. Patient denies any urinary burning frequency On 08/21/2021 patient is alert and oriented 3. There is no fever or chills no headache or dizziness no chest pain no shortness of breath no cough no nausea or vomiting no abdominal pain no diarrhea and no urinary symptoms, INR 2.6. Coumadin dosing per pharmacy goal 2.5-3.5 Mechanical heart valve. Patient's hemoglobin today 7.1. Will order repeat labs for a.m. [facility] On 08/22/2021 patient is alert and oriented 3. INR 3.2. Patient was discharged on Coumadin 2.5 mg nightly. Patient to have INR checked Twice weekly. Hemoglobin today 7.2. Patient will receive 1 dose of IV iron prior to discharge. Patient to be maintained on ferrous sulfate Patient Condition at Discharge: Stable Plan - Discharge Summary Discharge Rx Participant: No New Discharge Prescriptions: New Cefuroxime [Ceftin] 250 mg PO BID 7 Days #14 tab HYDROcodone/APAP 5-325MG [[place] 5-325] 1 each PO Q6HR PRN 3 Days #12 tab PRN Reason: Pain Continue Furosemide [Lasix] 40 mg PO BID Famotidine 20 mg PO DAILY Amiodarone [Cordarone] 100 mg PO DAILY tab Acetaminophen Tab [Tylenol] 650 mg PO Q4H PRN PRN Reason: Pain bisacodyL [Dulcolax] 10 mg RECTAL DAILY PRN PRN Reason: Constipation Magnesium Hydroxide [Milk of Magnesia] 2,400 mg PO Q72H PRN PRN Reason: Constipation ALPRAZolam [Xanax] 0.25 mg PO DAILY 3 Days #3 tab Aspirin 81 mg PO DAILY Docusate [Colace] 100 mg PO BID cap carvediloL [Coreg] 6.25 mg PO AC-BID tab Ipratropium-Albuterol Nebulize [Duoneb 0.5 mg-3 mg/3 ml Soln] 3 ml INHALATION RT-QID PRN ml PRN Reason: Shortness Of Breath Or Wheezing Enoxaparin [Lovenox] 80 mg SQ BID@799,1999 Na Phos,M-B/Na Phos,Di-Ba [Fleet Adult] 133 ml RECTAL DAILY PRN PRN Reason: Constipation Sodium Chloride [Saline Nasal [place]] 1 spray EA NOSTRIL Q2H PRN PRN Reason: DRY NOSE Changed Warfarin [Coumadin] 2.5 mg PO DAILY@1700 #0 Discharge Medication List Aspirin 81 mg PO DAILY 07/13/21 [History] Famotidine 20 mg PO DAILY 07/13/21 [History] Furosemide [Lasix] 40 mg PO BID 07/13/21 [History] Amiodarone [Cordarone] 100 mg PO DAILY tab 07/22/21 [Rx] Docusate [Colace] 100 mg PO BID cap 07/22/21 [Rx] Ipratropium-Albuterol Nebulize [Duoneb 0.5 mg-3 mg/3 ml Soln] 3 ml INHALATION RT-QID PRN ml 07/22/21 [Rx] carvediloL [Coreg] 6.25 mg PO AC-BID tab 07/22/21 [Rx] Acetaminophen Tab [Tylenol] 650 mg PO Q4H PRN 08/12/21 [History] Enoxaparin [Lovenox] 80 mg SQ BID@0800,199908/12/21 [History] Magnesium Hydroxide [Milk of Magnesia] 2,400 mg PO Q72H PRN 08/12/21 [History] Na Phos,M-B/Na Phos,Di-Ba [Fleet Adult] 133 ml RECTAL DAILY PRN 08/12/21 [History] Sodium Chloride [Saline Nasal [place]] 1 spray EA NOSTRIL Q2H PRN 08/12/21 [History] bisacodyL [Dulcolax] 10 mg RECTAL DAILY PRN 08/12/21 [History] ALPRAZolam [Xanax] 0.25 mg PO DAILY 3 Days #3 tab 08/22/21 [Rx] Cefuroxime [Ceftin] 250 mg PO BID 7 Days #14 tab 08/22/21 [Rx] HYDROcodone/APAP 5-325MG [[place] 5-325] 1 each PO Q6HR PRN 3 Days #12 tab 08/22/21 [Rx] Warfarin [Coumadin] 2.5 mg PO DAILY@1700 #0 08/22/21 [Rx] Follow up Appointment(s)/Referral(s): Clayton Helton MD [STAFF PHYSICIAN] - 2 Weeks Pauly Sosa MD [Primary Care Provider] - 1-2 days Activity/Diet/Wound Care/Special Instructions: Activity as tolerated Diet heart healthy Discharge Disposition: TRANSFER TO SNF/ECF
[2021-08-22] MEDS ORDERED: SODIUM FERRIC GLUCONAT-SUCROSE 125 MG in SODIUM CHLORIDE 0.9% 100 ML IVPB ONE (11:30)
[2021-08-22 12:38] VITALS: RESP 16; TEMP 97.3
[2021-08-22 16:14] VITALS: BP 117/62
[2021-08-22] MEDS ORDERED: FERROUS SULFATE 325 MG TAB PO SCH (17:30)
[2021-08-22] MEDS ORDERED: WARFARIN 2 MG TAB PO ONE (18:00)
== END 2021-08-22 17:28 | DRG 813 ==
LOC: EC 06:25 → 3SCARD 08:37 → 5NMEDONC 08-14 20:11
PROVIDERS: ADMIT Internal Medicine; ATTEND Internal Medicine
PROC: 30233N1 Transfusion of Nonautologous Red Blood Cells into Peripheral Vein, Percutaneous Approach (ICD-10-PCS; principal; 2021-08-12)
DX: D68.32 Hemorrhagic disorder due to extrinsic circulating anticoagulants (principal); I13.0 Hypertensive heart and chronic kidney disease with heart failure and stage 1 through stage 4 chronic kidney disease, or unspecified chronic kidney disease; I42.9 Cardiomyopathy, unspecified; I48.21 Permanent atrial fibrillation; I50.42 Chronic combined systolic (congestive) and diastolic (congestive) heart failure; J96.10 Chronic respiratory failure, unspecified whether with hypoxia or hypercapnia; N18.4 Chronic kidney disease, stage 4 (severe); N39.0 Urinary tract infection, site not specified; N17.9 Acute kidney failure, unspecified; T45.515A Adverse effect of anticoagulants, initial encounter; E78.5 Hyperlipidemia, unspecified; G25.0 Essential tremor; I08.3 Combined rheumatic disorders of mitral, aortic and tricuspid valves; I27.20 Pulmonary hypertension, unspecified; K59.00 Constipation, unspecified; D63.1 Anemia in chronic kidney disease; J38.02 Paralysis of vocal cords and larynx, bilateral; S40.021A Contusion of right upper arm, initial encounter; W19.XXXA Unspecified fall, initial encounter; Z79.01 Long term (current) use of anticoagulants; Z79.82 Long term (current) use of aspirin; Z79.899 Other long term (current) drug therapy; M19.90 Unspecified osteoarthritis, unspecified site; Z82.49 Family history of ischemic heart disease and other diseases of the circulatory system; I08.1 Rheumatic disorders of both mitral and tricuspid valves; M25.551 Pain in right hip; Z20.822 Contact with and (suspected) exposure to COVID-19; R94.31 Abnormal electrocardiogram [ECG] [EKG]; Z87.440 Personal history of urinary (tract) infections; Z87.01 Personal history of pneumonia (recurrent); Z86.79 Personal history of other diseases of the circulatory system; Z86.73 Personal history of transient ischemic attack (TIA), and cerebral infarction without residual deficits; Z87.442 Personal history of urinary calculi; Z95.0 Presence of cardiac pacemaker; Z95.2 Presence of prosthetic heart valve; Z87.19 Personal history of other diseases of the digestive system; Z98.890 Other specified postprocedural states; Z88.1 Allergy status to other antibiotic agents; Z88.0 Allergy status to penicillin; Z88.8 Allergy status to other drugs, medicaments and biological substances; I44.7 Left bundle-branch block, unspecified
CPT/HCPCS: 36415; 73502; 80048; 80053; 81001; 83540; 83550; 83605; 84484; 85025; 85027; 85610; 85730; 86850; 86870; 86880; 86900; 86901; 86902; 86920; 87077; 87086; 87186; 87635; 93005; 94640; 94760; 99291